=== PATIENT | female | born 1955 | race Caucasian/White ===

== ENCOUNTER 2019-12-31 12:44 | Outpatient (REF) | payer MEDICARE, MEDICAID, SELFPAY ==
--- NOTE | 2019-12-31 | MM_ITS ---
EXAMINATION: MM SCREENING DIGITAL BREAST TOMOSYNTHESIS, BILATERAL CLINICAL INFORMATION: Screening. Asymptomatic. The lifetime risk of breast cancer based on the Tyrer-Cuzick Model is 5%. COMPARISON: Mammography: 12/25/2018, 12/01/2017, 11/03/2016; targeted right breast ultrasound 11/10/2016 TECHNIQUE: Digital breast tomosynthesis is performed in both the craniocaudal and mediolateral oblique views along with computer-aided detection (CAD). Synthesized 2D images are generated from the tomosynthesis. FINDINGS: There are scattered areas of fibroglandular density (ACR BI-RADS breast composition Category b). Parenchymal pattern borders on heterogeneously dense in the upper outer quadrants. There is fibrocystic parenchymal pattern with small bilateral smooth waxing and waning nodularity. No interval significant mass or architectural abnormality. There are scattered punctate isolated and small groups of round calcifications. No significant calcifications. The skin contours are smooth. IMPRESSION: No significant changes from prior studies. ASSESSMENT: BI-RADS 2: Benign RECOMMENDATION: Routine annual mammography screening. This patient's information was entered into a reminder system with a target due date for their next mammogram.
== END 2019-12-31 12:45 | disposition home or self-care (01) ==
LOC: HO.MAMMO 12:44
PROVIDERS: PCP Family Medicine; Visit Provider Family Medicine
DX: Z12.31 Encounter for screening mammogram for malignant neoplasm of breast (principal)
CPT/HCPCS: 77063; 77067; 78014

== ENCOUNTER 2020-11-20 13:09 | Outpatient (REF) | payer MEDICARE, MEDICAID, SELFPAY ==
--- NOTE | ~2020-11-20 | US_ITS ---
EXAMINATION: ULTRASOUND EXTREMITY NONVASCULAR CLINICAL INFORMATION: Lung on left forearm COMPARISON: None TECHNIQUE: Grayscale and color imaging of the soft tissues of the left forearm using a linear transducer FINDINGS: There are 2 solid hypoechoic lesions just deep to the skin in the volar surface of the left forearm measuring 1.9 x 1.5 x 2 cm distally and 0.5 x 1.3 x 0.3 cm proximally. Both lesions are suggestive of lipomas. US/US extremity nonvascular martins IMPRESSION: 2 solid hypoechoic lesions in the left forearm suggestive of lipomas.
== END 2020-11-20 13:10 | disposition home or self-care (01) ==
LOC: HO.US 13:09
PROVIDERS: Visit Provider Family Medicine
DX: R22.32 Localized swelling, mass and lump, left upper limb (principal)
CPT/HCPCS: 76882

== ENCOUNTER 2021-02-12 13:19 | Outpatient (REF) | payer MEDICARE, MEDICAID, SELFPAY ==
--- NOTE | ~2021-02-12 | MM_ITS ---
EXAMINATION: MM SCREENING DIGITAL BREAST TOMOSYNTHESIS, BILATERAL CLINICAL INFORMATION: Screening. Asymptomatic. The lifetime risk of breast cancer based on the Tyrer-Cuzick Model is 8%. COMPARISON: Mammography: 12/31/2019, 12/25/2018, 12/01/2017 TECHNIQUE: Digital breast tomosynthesis is performed in both the craniocaudal and mediolateral oblique views along with computer-aided detection (CAD). Synthesized 2D images are generated from the tomosynthesis. Additional left CC view is provided. FINDINGS: There are scattered areas of fibroglandular density (ACR BI-RADS breast composition Category b). Parenchymal pattern is similar to prior exams. There is no developing density or interval significant mass or architectural abnormality. Scattered punctate isolated and small groups of round calcifications are again noted as well as dermal in coarse calcifications as before. The axilla and skin contours are unremarkable. MM/MM tomosynthesis screening BI IMPRESSION: No mammographic evidence of malignancy. ASSESSMENT: BI-RADS 2: Benign RECOMMENDATION: Routine annual mammography screening. This patient's information was entered into a reminder system with a target due date for their next mammogram.
== END 2021-02-12 13:20 | disposition home or self-care (01) ==
LOC: HO.MAMMO 13:19
PROVIDERS: PCP Family Medicine; Visit Provider Family Medicine
DX: Z12.31 Encounter for screening mammogram for malignant neoplasm of breast (principal)
CPT/HCPCS: 77063; 77067

== ENCOUNTER 2021-03-31 09:16 | Outpatient (REF) | payer MEDICARE, MEDICAID, SELFPAY ==
--- NOTE | ~2021-03-31 | MM_ITS ---
EXAMINATION: BONE DENSITOMETRY CLINICAL INDICATION: Menopausal. COMPARISON: This is the patient's baseline examination. TECHNIQUE: Using a POPRAGEOUS DXA System (software version: 13.1) manufactured by [employer], dual-energy x-ray absorptiometry was performed of the lumbar spine and left hip. The images are of good technical quality. Summary results are attached. FINDINGS: AP SPINE L1-L2 (excluding L3 and L4): The data of L1-L4 has been changed to exclude the L3 and L4 vertebral bodies, because degenerative changes at these levels may cause overestimation of lumbar spine density. BMD 1.032 g/cm2, Z-score 0.3, T-score -1.1, osteopenia. LEFT FEMUR, NECK: BMD 0.561 g/cm2, Z-score -2.1, T-score -3.4, osteoporosis. LEFT FEMUR, TOTAL: BMD 0.622 g/cm2, Z-score -2.0, T-score -3.1, osteoporosis. IDENTIFIED RISK FACTORS: Renal, menopause. HISTORY OF FRACTURE: None listed. MEDICATIONS: Calcium supplements or multivitamin, vitamin D. MM/XR DEXA axial skeleton IMPRESSION: 1. DIAGNOSIS: Osteoporosis based on the lowest T-score value of -3.4 in the femoral neck applying World Health Organization criteria. 2. 10-YEAR FRACTURE RISK PREDICTION, FRAX: According to the guidelines, FRAX calculation should only be performed on patients in the osteopenia bone density category. 3. Treatment Recommendations: NOF guidelines recommend consideration for treatment in postmenopausal women and men age 50 and older presenting with the following: -A hip or vertebral (clinical or morphometric) fracture. -T-score less than or equal to -2.5 at the femoral neck or spine after appropriate evaluation to exclude secondary causes. -Low bone mass at the hip or spine and a 10-year fracture probability by FRAX of greater than or equal to 3% for hip fracture or greater than or equal to 20% for major osteoporotic fracture based on the [place] adapted WHO algorithm. 4. Other Recommendations: All treatment decisions require clinical judgment and consideration of individual patient factors, including patient preferences, comorbidities, previous drug use, risk factors not captured in the FRAX model (e.g. frailty, falls, vitamin D deficiency, increased bone turnover, interval significant decline in bone density) and possible under or overestimation of fracture risk by FRAX. Additional medical evaluation for secondary cause of low bone mineral density may be appropriate. FUTURE SCAN RECOMMENDATION: People with diagnosed cases of osteoporosis or at high risk for fracture should have regular bone mineral density tests. For patients eligible for Medicare, routine testing is allowed once every 2 years. The testing frequency can be increased to one year for patients who have rapidly progressing disease, those who are receiving or discontinuing medical therapy to restore bone mass, or have additional risk factors.
== END 2021-03-31 09:17 | disposition home or self-care (01) ==
LOC: HO.MAMMO 09:16
PROVIDERS: PCP Family Medicine; Visit Provider Family Medicine
DX: Z13.820 Encounter for screening for osteoporosis (principal); M81.0 Age-related osteoporosis without current pathological fracture; Z78.0 Asymptomatic menopausal state; Z79.899 Other long term (current) drug therapy
CPT/HCPCS: 77080

== ENCOUNTER 2021-04-15 08:35 | Outpatient (REF) | payer MEDICARE, MEDICAID, SELFPAY ==
--- NOTE | ~2021-04-15 | XR_ITS ---
EXAMINATION: XR FOREARM, LEFT CLINICAL INFORMATION: Soft tissue disorder COMPARISON: None TECHNIQUE: AP and lateral views of the left forearm were obtained. FINDINGS: No visible acute fracture or malalignment of the radius and ulna. Alignment at the elbow and wrist joint appears maintained. No abnormal soft tissue calcification is seen. XR/XR forearm LT 2V IMPRESSION: No evidence of acute osseous abnormality.
== END 2021-04-15 08:36 | disposition home or self-care (01) ==
LOC: HO.HOSX 08:35
PROVIDERS: Visit Provider Orthopaedic Surgery
DX: M79.89 Other specified soft tissue disorders (principal)
CPT/HCPCS: 73090; 99202

== ENCOUNTER 2021-05-14 07:28 | Day surgery (SDC) | payer MEDICARE, MEDICAID, SELFPAY ==
[2021-05-13 07:50] VITALS: BMI 25.4
--- NOTE | 2021-05-13 09:30 | HO.ANESPROP2 ---
Documented by User: Roselia Austin NP 05/13/21 09:35 HPI - Anesthesia Eval Consult details Narrative: 65yo F for Left Volar Excision Mass PMFSH Active Problems Active Problems: All Active Problems (Updated 05/13/21 @ 07:50 by Anjana Yeung RN) Mass of soft tissue of left upper extremity (Acute) Past Medical History Medical History Chronic kidney disease HLD (hyperlipidemia) HTN (hypertension) Schizophrenia Social History Social History Patient Tobacco Use Status: Never used Tobacco Current 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 status: disabled Current occupation: [employer] Allergies Allergy/AdvReac Type Severity Reaction Status Date / Time No Known Allergies Allergy Verified 04/15/21 13:46 Home Medications Medication Instructions Recorded Confirmed Last Taken Type amlodipine 2.5 mg tablet 2.5 mg PO DAILY 04/15/21 05/14/21 History cyanocobalamin (vitamin B-12) 1,000 mcg PO DAILY 04/15/21 Unknown History 1,000 mcg capsule fenofibrate 50 mg capsule 50 mg PO DAILY 04/15/21 Unknown History perphenazine 2 mg tablet 2 mg PO BID 04/15/21 Unknown History Exam Exam Date and Time: May 13, 2021 0930 Height,Weight and Vital Signs: Height 5 ft 5 in Weight 69.4 kg Assessment and Plan Assessment Anesthesia Assessment: Chart Reviewed Documented by User: Chapo Wang MD 05/14/21 12:36 HPI - Anesthesia Eval Consult details Narrative: 65yo F for Left Volar Excision Mass Hx of schizophrenia, controlled PMFSH Past Medical History Medical History Chronic kidney disease HLD (hyperlipidemia) HTN (hypertension) Schizophrenia Family History Family history of problems with anesthesia: No Surgical History History of Problems with Anesthesia: No Social History Social History Patient Tobacco Use Status: Never used Tobacco Current 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 status: 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 Meds Allergies Allergy/AdvReac Type Severity Reaction Status Date / Time No Known Allergies Allergy Verified 04/15/21 13:46 Home Medications Medication Instructions Recorded Confirmed Last Taken Type amlodipine 2.5 mg tablet 2.5 mg PO DAILY 04/15/21 05/14/21 History cyanocobalamin (vitamin B-12) 1,000 mcg PO DAILY 04/15/21 Unknown History 1,000 mcg capsule fenofibrate 50 mg capsule 50 mg PO DAILY 04/15/21 Unknown History perphenazine 2 mg tablet 2 mg PO BID 04/15/21 Unknown History Exam Airway Mallampati Class: II TM Dist: >3cm Neck ROM: Full Loose/Missing/Broken Teeth: Yes Assessment and Plan Final Anesthetic Review Family History of Problems with Anesthesia: No History of Problems with Anesthesia: No NPO: Yes ASA Class: II Final Preanesthetic Review: No Changes in Pt Med Stat, Meds/Allgs Chart Reviewed, Consent Obtained/Reviewed and Anes Risks/Benef Reviewed Patient Risk: Low Procedure Risk: Low Anesthetic Plan Anesthetic Plan: MAC: Disposition: Standard PACU
[2021-05-14 08:11] VITALS: BP 144/66; PULSE 88; RESP 16; TEMP 36.8; O2SAT 99
[2021-05-14] MEDS: Lactated Ringers 1,000 ML 100 ML IVCONT (08:18)
[2021-05-14 08:45] LABS: Anion Gap 12 (12-20); Blood Urea Nitrogen 23 mg/dL (9-16); Calcium 9.8 mg/dL (8.4-10.2); Carbon Dioxide 26 mmol/L (22-29); Chloride 110 mmol/L (96-108); Creatinine Clr Calc Pharmacy 57.1; Estimated Glomerular Filt Rate 58; Glucose Fasting 106 mg/dL (60-99); Potassium 4.1 mmol/L (3.3-5.1); Sodium 144 mmol/L (135-145)
--- NOTE | 2021-05-14 09:36 | MHC.SHP ---
Pre-Procedural Eval Section A Date of Service: 05/14/21 The patient is an INPATIENT: No Changes since office visit: No Cold of Flu in the past 2 weeks, No New Medical Problems, No Changes in Medication and No Patient answered all questions The History & Physical has been completed within 30 days and I have reviewed it.: Yes Section B Chief Complaint: soft tissue disorder Allergies: Allergies Allergy/AdvReac Type Severity Reaction Status Date / Time No Known Allergies Allergy Verified 04/15/21 13:46 Plan I have reviewed the history and physical and performed a pertinent physical examination on my patient. No changes have occurred unless specified.
--- NOTE | 2021-05-14 09:36 | W.PM.OPN ---
Operative Note Operative Note Date of Service: 05/14/21 Narrative: Operative Note Narrative: Preop diagnosis: 1. Left volar forearm mass Postop diagnosis: Same Procedure: 1. Left volar forearm mass excisional biopsy Surgeon: Jordyn Carlisle MD Anesthesia: local plus MAC Findings: 2 cm diameter yellow lipomatous mass Implants: none Tourniquet time: 0 minutes EBL: 5.0 ml Specimen: left volar forearm mass for histopathology Drains: None Complications: None Disposition: Brought to the recovery room in stable condition Plan: Follow-up in 10-14 days for wound check, suture removal and to check pathology Indications: The patient is a 65 year old woman with a left volar forearm mass . The risks and benefits of operative treatment, including but not limited to risk of damage to blood vessels, nerves, tendons, infection, recurrence, persistent pain or numbness, incomplete resolution of preoperative symptoms, or need for further surgery were discussed with the patient and they wished to proceed with surgery. Procedure: Once consent was obtained patient was brought back to the operating suite and placed in the operating table in a supine position. . Perioperative antibiotics and anesthesia was administered by the anesthesia team. I Infiltrated about the mass with a combination of 1% lidocaine and epinephrine. A tourniquet was applied to the proximal aspect of the left upper extremity and the limb was prepped and draped in a standard surgical fashion. The tourniquet was not inflated. I made a a 2.5 cm longitudinal incision directly over the mass. I then carefully dissected down into the subcutaneous layer and to the soft tissue mass. I dissected about a 2 cm diameter yellow lipomatous mass. The mass was removed from the patient and placed on the back table to be sent for histopathology. No further masses were appreciated. The wound was copiously irrigated with normal saline. The skin edges were reapproximated with 5-0 nylon suture. A sterile dressing was applied. The patient appears to have tolerated the procedure well and with no complications. All digits were well vascularized conclusion of the case.
[2021-05-14 10:13] VITALS: BP 109/59; PULSE 89; RESP 16; TEMP 36.3; O2SAT 96
[2021-05-14 10:33] VITALS: BP 122/61; PULSE 79; RESP 16; TEMP 36.3; O2SAT 96
== END 2021-05-14 11:03 | disposition home or self-care (01) ==
PROVIDERS: Nurse Practitioner; PCP Family Medicine; Visit Provider Orthopaedic Surgery
PROC: (CPT 25075; principal; 2021-05-14 09:20)
DX: M79.89 Other specified soft tissue disorders (principal); I12.9 Hypertensive chronic kidney disease with stage 1 through stage 4 chronic kidney disease, or unspecified chronic kidney disease; N18.30 Chronic kidney disease, stage 3 unspecified; F20.9 Schizophrenia, unspecified; Z79.899 Other long term (current) drug therapy
CPT/HCPCS: 25075; 36415; 80048; 88304; J0690

== ENCOUNTER → 2021-05-27 13:19 | Outpatient (BNVA) | payer MEDICARE, MEDICAID, SELFPAY | PROVIDERS: Visit Provider Orthopaedic Surgery | DX: Z48.3 Aftercare following surgery for neoplasm (principal); Z86.018 Personal history of other benign neoplasm | CPT/HCPCS: 99212 ==

== ENCOUNTER 2022-02-15 12:33 | Outpatient (REF) | payer MEDICARE, MEDICAID, SELFPAY ==
--- NOTE | ~2022-02-15 | MM_ITS ---
EXAMINATION: MM SCREENING DIGITAL BREAST TOMOSYNTHESIS, BILATERAL CLINICAL INFORMATION: Screening. Asymptomatic. The lifetime risk of breast cancer based on the Tyrer-Cuzick Model is 9%. COMPARISON: Mammography: 02/12/2021, 12/31/2019, 12/25/2018 TECHNIQUE: Digital breast tomosynthesis is performed in both the craniocaudal and mediolateral oblique views along with computer-aided detection (CAD). Synthesized 2D images are generated from the tomosynthesis. FINDINGS: There are scattered areas of fibroglandular density (ACR BI-RADS breast composition Category b). Scattered bilateral minor parenchymal asymmetries are similar to prior exams. No developing density, significant mass, or architectural abnormality. No abnormal calcifications. The axilla and skin contours are unremarkable. No significant changes. MM/MM tomosynthesis screening BI IMPRESSION: No mammographic evidence of malignancy. ASSESSMENT: BI-RADS 2: Benign RECOMMENDATION: Routine annual mammography screening. This patient's information was entered into a reminder system with a target due date for their next mammogram.
== END 2022-02-15 12:34 | disposition home or self-care (01) ==
LOC: HO.MAMMO 12:33
PROVIDERS: PCP Family Medicine; Visit Provider Family Medicine
DX: Z12.31 Encounter for screening mammogram for malignant neoplasm of breast (principal)
CPT/HCPCS: 77063; 77067

== ENCOUNTER 2022-05-17 13:09 | Emergency (ER) | payer MEDICARE, MEDICAID, SELFPAY ==
[2022-05-17 13:43] VITALS: BP 170/96; PULSE 111; RESP 18; TEMP 36.6; O2SAT 96; BMI 23.0
--- NOTE | 2022-05-17 13:46 | ED_ITS ---
HPI - General Adult General Chief complaint: General Medical <TIM Cervantes - Last Filed: 05/17/22 13:50> Stated complaint: Not sleeping/Losing weight <TIM Cervantes - Last Filed: 05/17/22 13:50> Time Seen by Provider: 05/17/22 22:52 <TIM Cervantes - Last Filed: 05/17/22 13:50> Source: patient <Rock Jackson MD - Last Filed: 05/17/22 23:05> Mode of arrival: ambulatory <Rock Jackson MD - Last Filed: 05/17/22 23:05> Limitations: no limitations <Rock Jackson MD - Last Filed: 05/17/22 23:05> History of Present Illness HPI narrative: Patient with his history of schizophrenia, anxiety, HTN is unable to sleep for last few nights sleep for 3 -4 hours without reaching to deep sleep waking up frequently denies any hallucination or delusions patient used to be on Zyprexa before but not now now today she take perphenazine <Rock Jackson MD - Last Filed: 05/17/22 23:05> Related Data Home medications: Home Medications Medication Instructions Recorded Confirmed amlodipine 2.5 mg tablet 2.5 mg PO DAILY 04/15/21 cyanocobalamin (vitamin B-12) 1,000 mcg PO DAILY 04/15/21 1,000 mcg capsule fenofibrate 50 mg capsule 50 mg PO DAILY 04/15/21 perphenazine 2 mg tablet 2 mg PO BID 04/15/21 Previous Rx's Medication Instructions Recorded hydrocodone 5 mg-acetaminophen 325 1 tab PO Q4-6H PRN pain #3 tabs 05/14/21 mg tablet lorazepam 1 mg tablet (Ativan) 1 mg PO BEDTIME PRN sleep #14 tabs 05/17/22 <TIM Cervantes - Last Filed: 05/17/22 13:50> Allergies/adverse reactions: Allergies Allergy/AdvReac Type Severity Reaction Status Date / Time No Known Allergies Allergy Verified 05/17/22 13:42 <TIM Cervantes - Last Filed: 05/17/22 13:50> Review of Systems Review of Systems: Yes all other systems are reviewed and are negative <Rock Jackson MD - Last Filed: 05/17/22 23:05> [facility] Past Medical History Medical History: Medical History (Updated 05/17/22 @ 23:03 by Rock Jackson MD) Anxiety HLD (hyperlipidemia) HTN (hypertension) Schizophrenia <TIM Cervantes - Last Filed: 05/17/22 13:50> Social History Social History: Social History Patient Tobacco Use Status: Never used Tobacco Advance Directives: No Advance Directives Information Provided: No Current 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 status: 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 <TIM Cervantes - Last Filed: 05/17/22 13:50> Physical Exam ED Vital Signs: Vital Signs - 24 hr 05/17/22 13:43 05/17/22 20:07 Temperature 97.9 F 98 F Pulse Rate 111 H 101 H Respiratory Rate 18 20 Blood Pressure 170/96 H 173/98 H Pulse Oximetry 96 97 Oxygen Delivery Method Room Air Room Air BMI result Body Mass Index 23.0 <TIM Cervantes - Last Filed: 05/17/22 13:50> Vital Signs - 24 hr 05/17/22 13:43 05/17/22 20:07 Temperature 97.9 F 98 F Pulse Rate 111 H 101 H Respiratory Rate 18 20 Blood Pressure 170/96 H 173/98 H Pulse Oximetry 96 97 Oxygen Delivery Method Room Air Room Air BMI result Body Mass Index 23.0 <Rock Jackson MD - Last Filed: 05/17/22 23:05> Appearance: Alert. Oriented X3. No acute distress. Anxious Eyes: PERRLA, No Nystagmus ENT: Pharynx normal. Oral Mucosa moist Neck: Normal inspection. Neck supple. CVS: Normal heart rate and rhythm. Pulses normal. Respiratory: No respiratory distress. Equal air entry bilateral, no wheezing/rales/rhonchi Abdomen: Soft and nontender. Bowel sounds are present, Skin: Skin warm and dry. Normal skin color. Normal skin turgor. Extremities: No lower extremity edema. No calf tenderness Neuro: Oriented X 3. No motor deficit. <Rock Jackson MD - Last Filed: 05/17/22 23:05> Course Course Course Narrative: RME - 66 yo female with history of schizophrenia, HTN, HLD, CKD who presents to the ER for evaluation of difficulty sleeping and weight loss for the last week. She states she has been getting up frequently and having trouble staying asleep. Getting approximately 5 hours sleep per night. Also reports 5lb weight loss in last 4 days. Eating and drinking normally. Tachycardic and hypertensive in triage. ?anxiety. will check basic labs <TIM Cervantes - Last Filed: 05/17/22 13:50> Medical Decision Making Medical Decision Making MDM Narrative: Patient has schizophrenia, came with increased anxiety and poor sleep discharge patient home on Ativan labs are stable <Rock Jackson MD - Last Filed: 05/17/22 23:05> Lab Data [facility] Lab Attestation statement: I reviewed the patient's lab results. <Rock Jackson MD - Last Filed: 05/17/22 23:05> Result Diagrams: 05/17/22 15:00 05/17/22 15:00 <TIM Cervantes - Last Filed: 05/17/22 13:50> Labs: Lab Results 05/17/22 05/17/22 Range/Units 15:00 15:00 WBC 9.4 (4.8-10.8) X10*3/uL RBC 4.89 (4.20-5.50) X10*6/uL Hgb 14.1 (12.0-16.0) g/dl Hct 44.2 (37.0-47.0) % MCV 90.4 (80.0-98.0) fL MCH 28.8 (27.0-33.0) pg MCHC 31.9 (31.0-35.0) g/dl RDW 12.8 (11.0-16.0) % Plt Count 260 (160-400) X10*3/uL MPV 12.3 (9.4-12.3) fL Immature Gran % (Auto) 0.3 (0.0-0.4) % Neut % (Auto) 72.3 (45-73) % Lymph % (Auto) 16.6 L (20-40) % [place] % (Auto) 9.0 (2-11) % Eos % (Auto) 1.3 (0-4) % Baso % (Auto) 0.5 (0-2) % Lymph # (Auto) 1.6 (1.2-4.9) X10*3/uL [place] # (Auto) 0.9 (0.1-1.2) X10*3/uL Eos # (Auto) 0.1 (0.0-0.4) X10*3/uL Baso # (Auto) 0.1 (0.0-0.2) X10*3/uL Abs Immat Gran (auto) 0.03 (0.00-0.03) X10*3/uL Absolute Neuts (auto) 6.8 (2.0-8.3) x10*3/uL Absolute Nucleated RBC 0.000 (0.0-0.012) X10*3/uL Nucleated RBC % (auto) 0.0 (0.0-0.2) /100WBC Sodium 141 (135-145) mmol/L Potassium 4.1 (3.3-5.1) mmol/L Chloride 107 (96-108) mmol/L Carbon Dioxide 22 (22-29) mmol/L Anion Gap 16 (12-20) BUN 13 (9-16) mg/dL Creatinine 0.88 (0.5-1.4) mg/dL Estim Creat Clear Calc 61.1 Estimated GFR > 60 Random Glucose 107 (60-115) mg/dL Calcium 10.3 H (8.4-10.2) mg/dL Magnesium 2.2 (1.6-2.6) mg/dL Total Bilirubin 0.7 (0.0-1.0) mg/dL Direct Bilirubin 0.2 (0.0-0.5) mg/dL AST 26 (5-31) U/L ALT 26 (0-31) U/L Alkaline Phosphatase 43 (39-117) U/L Total Protein 7.6 (6.5-8.0) g/dL Albumin 4.6 (3.5-5.0) g/dL <TIM Cervantes - Last Filed: 05/17/22 13:50> Lab Results 05/17/22 05/17/22 Range/Units 15:00 15:00 WBC 9.4 (4.8-10.8) X10*3/uL RBC 4.89 (4.20-5.50) X10*6/uL Hgb 14.1 (12.0-16.0) g/dl Hct 44.2 (37.0-47.0) % MCV 90.4 (80.0-98.0) fL MCH 28.8 (27.0-33.0) pg MCHC 31.9 (31.0-35.0) g/dl RDW 12.8 (11.0-16.0) % Plt Count 260 (160-400) X10*3/uL MPV 12.3 (9.4-12.3) fL Immature Gran % (Auto) 0.3 (0.0-0.4) % Neut % (Auto) 72.3 (45-73) % Lymph % (Auto) 16.6 L (20-40) % [place] % (Auto) 9.0 (2-11) % Eos % (Auto) 1.3 (0-4) % Baso % (Auto) 0.5 (0-2) % Lymph # (Auto) 1.6 (1.2-4.9) X10*3/uL [place] # (Auto) 0.9 (0.1-1.2) X10*3/uL Eos # (Auto) 0.1 (0.0-0.4) X10*3/uL Baso # (Auto) 0.1 (0.0-0.2) X10*3/uL Abs Immat Gran (auto) 0.03 (0.00-0.03) X10*3/uL Absolute Neuts (auto) 6.8 (2.0-8.3) x10*3/uL Absolute Nucleated RBC 0.000 (0.0-0.012) X10*3/uL Nucleated RBC % (auto) 0.0 (0.0-0.2) /100WBC Sodium 141 (135-145) mmol/L Potassium 4.1 (3.3-5.1) mmol/L Chloride 107 (96-108) mmol/L Carbon Dioxide 22 (22-29) mmol/L Anion Gap 16 (12-20) BUN 13 (9-16) mg/dL Creatinine 0.88 (0.5-1.4) mg/dL Estim Creat Clear Calc 61.1 Estimated GFR > 60 Random Glucose 107 (60-115) mg/dL Calcium 10.3 H (8.4-10.2) mg/dL Magnesium 2.2 (1.6-2.6) mg/dL Total Bilirubin 0.7 (0.0-1.0) mg/dL Direct Bilirubin 0.2 (0.0-0.5) mg/dL AST 26 (5-31) U/L ALT 26 (0-31) U/L Alkaline Phosphatase 43 (39-117) U/L Total Protein 7.6 (6.5-8.0) g/dL Albumin 4.6 (3.5-5.0) g/dL <Rock Jackson MD - Last Filed: 05/17/22 23:05> Discharge Plan Discharge Clinical Impression: Anxiety <TIM Cervantes - Last Filed: 05/17/22 13:50> Patient Disposition: Home, Self-Care <TIM Cervantes - Last Filed: 05/17/22 13:50> Instructions: Anxiety (ED) <TIM Cervantes - Last Filed: 05/17/22 13:50> Additional Instructions: Rest at home Take anxiety medication every night as needed to sleep Follow-up with psychiatrist <TIM Cervantes - Last Filed: 05/17/22 13:50> Prescriptions: New lorazepam [Ativan] 1 mg tablet 1 mg PO BEDTIME PRN (Reason: sleep) Qty: 14 0RF No Action hydrocodone-acetaminophen 5-325 mg tablet 1 tab PO Q4-6H PRN (Reason: pain) Qty: 3 0RF perphenazine 2 mg tablet 2 mg PO BID cyanocobalamin (vitamin B-12) 1,000 mcg capsule 1,000 mcg PO DAILY fenofibrate 50 mg capsule 50 mg PO DAILY amlodipine 2.5 mg tablet 2.5 mg PO DAILY <TIM Cervantes - Last Filed: 05/17/22 13:50>
--- NOTE | 2022-05-17 15:02 | MHC.EDTECH ---
Labs collected and sent
[2022-05-17 15:23] LABS: MANUAL DIFF FLAG NO
[2022-05-17 15:30] LABS: Basophils Absolute Auto 0.1 X10*3/uL (0.0-0.2); Basophils Percent Auto 0.5 % (0-2); Eosinophils Absolute Auto 0.1 X10*3/uL (0.0-0.4); Eosinophils Percent Auto 1.3 % (0-4); Hematocrit 44.2 % (37.0-47.0); Hemoglobin 14.1 g/dl (12.0-16.0); Imm Gran Abs Auto 0.03 X10*3/uL (0.00-0.03); Imm Gran Pct Auto 0.3 % (0.0-0.4); Lymphocytes Absolute Auto 1.6 X10*3/uL (1.2-4.9); Lymphocytes Percent Auto 16.6 % (20-40); Mean Corpuscular HGB Conc 31.9 g/dl (31.0-35.0); Mean Corpuscular Hemoglobin 28.8 pg (27.0-33.0); Mean Corpuscular Volume 90.4 fL (80.0-98.0); Mean Platelet Volume 12.3 fL (9.4-12.3); Monocytes Absolute Auto 0.9 X10*3/uL (0.1-1.2); Neutrophils Absolute Auto 6.8 x10*3/uL (2.0-8.3); Neutrophils Percent Auto 72.3 % (45-73); Platelet Count 260 X10*3/uL (160-400); Red Blood Count 4.89 X10*6/uL (4.20-5.50); Red Cell Distribution Width 12.8 % (11.0-16.0); White Blood Count 9.4 X10*3/uL (4.8-10.8)
[2022-05-17 15:39] LABS: Alanine Aminotransferase 26 U/L (0-31); Albumin Level 4.6 g/dL (3.5-5.0); Alkaline Phosphatase 43 U/L (39-117); Anion Gap 16 (12-20); Aspartate Amino Transferase 26 U/L (5-31); Bilirubin Direct 0.2 mg/dL (0.0-0.5); Bilirubin Total 0.7 mg/dL (0.0-1.0); Blood Urea Nitrogen 13 mg/dL (9-16); Calcium 10.3 mg/dL (8.4-10.2); Carbon Dioxide 22 mmol/L (22-29); Chloride 107 mmol/L (96-108); Creatinine Clr Calc Pharmacy 61.1; Estimated Glomerular Filt Rate > 60; Glucose Random 107 mg/dL (60-115); Magnesium 2.2 mg/dL (1.6-2.6); Potassium 4.1 mmol/L (3.3-5.1); Sodium 141 mmol/L (135-145); Total Protein 7.6 g/dL (6.5-8.0)
[2022-05-17 20:07] VITALS: BP 173/98; PULSE 101; RESP 20; TEMP 36.6; O2SAT 97
[2022-05-17] MEDS: LORazepam 1 MG TABLET PO (23:01)
== END 2022-05-17 23:04 | disposition home or self-care (01) ==
PROVIDERS: Physician Assistant; Emergency Provider Internal Medicine; PCP Family Medicine
DX: F41.1 Generalized anxiety disorder (principal); I10 Essential (primary) hypertension; Z79.899 Other long term (current) drug therapy
CPT/HCPCS: 36415; 80048; 80076; 83735; 85025; 99282; 99283

== ENCOUNTER 2022-05-27 09:59 | Emergency (ER) | payer MEDICARE, MEDICAID, SELFPAY ==
--- NOTE | ~2022-05-27 | XR_ITS ---
EXAMINATION: XR CHEST CLINICAL INFORMATION: Cough. COMPARISON: None TECHNIQUE: 2 views of the chest were obtained. FINDINGS: No significant abnormality is noted involving the heart, lungs, mediastinum, bony thorax or soft tissues. XR/XR chest 2V IMPRESSION: No acute cardiopulmonary process.
[2022-05-27 10:13] VITALS: BP 143/86; PULSE 108; O2SAT 100
[2022-05-27 10:23] VITALS: BP 157/86; PULSE 100; RESP 16; TEMP 36.6; O2SAT 98; BMI 25.2
--- NOTE | 2022-05-27 10:29 | ED.GENADULT ---
HPI - General Adult General Chief complaint: General Medical Stated complaint: COUGH Time Seen by Provider: 05/27/22 11:50 Source: patient, RN notes reviewed and old records reviewed Mode of arrival: ambulatory Limitations: no limitations History of Present Illness HPI narrative: This is a 66-year-old female who presents for evaluation of ?gagging and choking. ? Patient reports that when she was lying down last night when trying to bed she had an episode of ?choking. ? She reports that she was not eating at a time and believes she may have accidentally ?choked on my saliva She denies any sore throat, throat pain or swelling, neck pain or swelling, congestion, cough. Denies any viral symptoms including fever, headache, runny nose. She is able to swallow and manage her secretions. She is able to eat this morning without difficulty Related Data Home Medications Medication Instructions Recorded Confirmed amlodipine 2.5 mg tablet 2.5 mg PO DAILY 04/15/21 cyanocobalamin (vitamin B-12) 1,000 mcg PO DAILY 04/15/21 1,000 mcg capsule fenofibrate 50 mg capsule 50 mg PO DAILY 04/15/21 perphenazine 2 mg tablet 2 mg PO BID 04/15/21 Previous Rx's Medication Instructions Recorded hydrocodone 5 mg-acetaminophen 325 1 tab PO Q4-6H PRN pain #3 tabs 05/14/21 mg tablet lorazepam 1 mg tablet (Ativan) 1 mg PO BEDTIME PRN sleep #14 tabs 05/17/22 Allergies Allergy/AdvReac Type Severity Reaction Status Date / Time No Known Allergies Allergy Verified 05/17/22 13:42 Review of Systems Constitutional: Constitutional: Reports as per HPI, Denies chills and Denies fatigue ENT: Denies hoarseness, Denies neck mass, Denies neck pain, Denies sore throat and Denies tongue swelling Cardiovascular: Cardiovascular: Denies chest pain and Denies dyspnea Respiratory: Respiratory: Denies cough and Denies dyspnea Gastrointestinal: Gastrointestinal: Denies abdominal pain, Denies constipation and Denies vomiting Genitourinary: Genitourinary: Denies dysuria Musculoskeletal: Musculoskeletal: Denies neck pain Endocrine: Endocrine: Denies fatigue Allergic/Immunologic: Allergic/Immunologic: Denies tongue swelling [facility] Past Medical History Medical History (Updated 05/27/22 @ 11:57 by Matty Shelton) Anxiety HLD (hyperlipidemia) HTN (hypertension) Schizophrenia Social History Social History Patient Tobacco Use Status: Never used Tobacco Advance Directives: No Current 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 status: 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 Physical Exam ED Vital Signs: Vital Signs - 24 hr 05/27/22 10:23 Temperature 97.8 F Pulse Rate 100 Respiratory Rate 16 Blood Pressure 157/86 H Pulse Oximetry 98 Oxygen Delivery Method Room Air BMI result Body Mass Index 25.2 Const General: healthy appearing, comfortable, no acute distress, alert and awake Nutritional Appearance: well nourished Orientation/consciousness: patient oriented x3 HENMT Other: Patient has no oral contrast or retropharyngeal edema, no erythema, no exudates. Patient's cranial nerves are intact with good and equal soft palate rise bilaterally. There is no Eulogio's angina. The patient is managing his secretions well. No uvular edema. Patient has no soft tissue swelling to the neck or face. No goiter or palpable mass the thyroid. Eyes Eyelids: Yes eyelids normal Conjunctivae: conjunctivae normal Sclerae: sclerae normal Corneas: corneas normal Pupils: Equal, round and reactive pupils present EOM: EOMs intact bilaterally Resp Effort & Inspection: normal respiratory effort, able to speak in complete sentences, no audible wheezes and not labored Auscultation: clear to auscultation bilaterally Skin General skin exam: no rashes or lesions noted and elasticity normal Lesions: no lesions Rashes: no rashes Neuro General: patient oriented x3 Cranial nerves: Yes Equal, round and reactive pupils present Extrem General: Yes full ROM Course Course Course Narrative: RME- 66-year-old female with past medical history significant for hypertension, anxiety presents for evaluation of ?choking and gagging. ? Patient reports that last night when she is trying to sleep when lying down she ?started choking. ? She reports that happened again this morning while she was eating. She reports some associated coughing since then. Denies any neck pain, sore throat, neck swelling, shortness of breath. Denies any other viral or upper respiratory symptoms. Patient is quite well appearing in triage Plan to get chest x-ray to evaluate for potential aspiration sequela Medical Decision Making Medical Decision Making MDM Narrative: 66-year-old female presents for evaluation after a truck episode last night. She believes that she choked her saliva. On exam she is resting comfortably vital signs are stable. She is able to manage her secretions without difficulty. Patient reports eating and drinking this morning. Her physical exam is unremarkable. There are no neurologic deficits. The patient has good soft palate rise. No indication for CVA. There is no hoarseness to the patient's voice, while evidence of soft tissue neck swelling. No indication for viral or bacterial infections. Inna imaging time will have low yield from the patient's symptoms will likely resolve on their own. Patient was encouraged not to eat within 2 hours of going to bed. She will be discharged to follow-up with PCP. Differential Diagnosis Difficulty swallowing Choking Aspiration Dysphagia Pharyngitis Viral syndrome Discharge Plan Discharge Clinical Impression: Episode of gagging Patient Disposition: Home, Self-Care Additional Instructions: Your exam in the emergency department was reassuring. There are no signs of bacterial or viral infections or swelling in her neck or throat Follow-up with your primary doctor Return sooner for any new or worsening symptoms Prescriptions: No Action hydrocodone-acetaminophen 5-325 mg tablet 1 tab PO Q4-6H PRN (Reason: pain) Qty: 3 0RF lorazepam [Ativan] 1 mg tablet 1 mg PO BEDTIME PRN (Reason: sleep) Qty: 14 0RF perphenazine 2 mg tablet 2 mg PO BID cyanocobalamin (vitamin B-12) 1,000 mcg capsule 1,000 mcg PO DAILY fenofibrate 50 mg capsule 50 mg PO DAILY amlodipine 2.5 mg tablet 2.5 mg PO DAILY
== END 2022-05-27 11:59 | disposition home or self-care (01) ==
PROVIDERS: Emergency Provider Student in an Organized Health Care Education/Training Program; PCP Family Medicine
DX: R05.9 Cough, unspecified (principal); R09.89 Other specified symptoms and signs involving the circulatory and respiratory systems; Z79.899 Other long term (current) drug therapy
CPT/HCPCS: 71046; 99282; 99283

== ENCOUNTER 2022-06-04 03:47 | Emergency (ER) | payer MEDICARE, MEDICAID, SELFPAY ==
[2022-06-04 04:09] VITALS: BP 145/89; PULSE 97; RESP 16; TEMP 36.2; O2SAT 97
[2022-06-04 07:08] VITALS: BP 154/86; PULSE 89; RESP 18; TEMP 36.8; O2SAT 96
--- NOTE | 2022-06-04 07:23 | ED_ITS ---
HPI - Anxiety General Chief Complaint: Anxiety Stated Complaint: Can't sleep/Anxiety Time Seen by Provider: 06/04/22 06:36 Source: patient Mode of arrival: ambulatory Limitations: no limitations History of Present Illness HPI narrative: 66-year-old female with history of schizophrenia, anxiety presents with difficu lty sleeping. Symptoms started approximately 1 month ago. She has tried melatonin, lorazepam, hydroxyzine without significant improvement. Patient describes her symptoms as moderate to severe in nature. There are no clear relieving or exacerbating features. She denies any suicidal homicidal sarah ations. She denies significant depression. Her anxiety is certainly increasing secondary to or insomnia but there is no clear exacerbating features of her insomnia. Patient does have a psychiatrist which she follows up with. Her next appointment is in June. Patient denies alcohol or drug abuse. Related Data Home Medications Medication Instructions Recorded Confirmed amlodipine 2.5 mg tablet 2.5 mg PO DAILY 04/15/21 cyanocobalamin (vitamin B-12) 1,000 mcg PO DAILY 04/15/21 1,000 mcg capsule fenofibrate 50 mg capsule 50 mg PO DAILY 04/15/21 perphenazine 2 mg tablet 2 mg PO BID 04/15/21 Previous Rx's Medication Instructions Recorded hydrocodone 5 mg-acetaminophen 325 1 tab PO Q4-6H PRN pain #3 tabs 05/14/21 mg tablet lorazepam 1 mg tablet (Ativan) 1 mg PO BEDTIME PRN sleep #14 tabs 05/17/22 trazodone 50 mg tablet 50 mg PO BEDTIME PRN sleep #7 tabs 06/04/22 Allergies Allergy/AdvReac Type Severity Reaction Status Date / Time No Known Allergies Allergy Verified 05/17/22 13:42 Review of Systems Review of Systems: CONSTITUTIONAL: Denies weight loss, fever and chills. HEENT: Denies changes in vision and hearing. RESPIRATORY: Denies SOB and cough. CV: Denies palpitations no CP. GI: Denies abdominal pain, nausea, vomiting and diarrhea. : Denies dysuria and urinary frequency. MSK: Denies myalgia and joint pain. SKIN: Denies rash and pruritus. NEUROLOGICAL: Denies headache and syncope. PSYCHIATRIC: Denies recent changes in mood. Anxiety and depression. All other ROS are negative unless in HPI PMFSH Past Medical History Medical History Anxiety HLD (hyperlipidemia) HTN (hypertension) Schizophrenia Social History Social History Alcohol intake: current Alcohol intake frequency: other Patient Tobacco Use Status: Never used Tobacco Smoked in Last 30 Days: No Use of substances other than those prescribed or required for medical reasons: No Advance Directives: No Advance Directives Information Provided: No Current 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 status: 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 Physical Exam Vital Signs: Vital Signs: Last Vital Signs Temp 98.3 F 06/04/22 07:08 Pulse 89 06/04/22 07:08 Resp 18 06/04/22 07:08 BP 154/86 H 06/04/22 07:08 Pulse Ox 96 06/04/22 07:08 O2 Del Method 06/04/22 07:08 BMI result Body Mass Index 0.8 GEN: Well developed, no acute distress, alert, oriented HEENT: Normocephalic, atraumatic, normal external ears, nose appears normal, no oropharyngeal edema or exudates Eyes: Normal to appearance Neck: Supple, no lymphadenopathy Respiratory: Talks in complete sentences, no respiratory distress, clear to auscultation bilaterally Cardiovascular: Regular rate and rhythm, no murmurs rubs or gallops Abdomen: Soft, nontender, nondistended, no guarding, no rebound Back: No CVA tenderness Extremities: No clubbing cyanosis or edema Neurologic: No focal neurologic deficits, cranial nerves 2-12 intact, strength is 5/5 bilaterally, tremulous Skin: No rash Course Course Course Narrative: 66-year-old female with history of anxiety and schizophrenia presents with difficulty sleeping. Symptoms seemed of exacerbated over the last 4 weeks. Recent attempts to medically manage this have failed. I have offered evaluation by our psychiatric team to assist with medication management. However, at this point she is really requesting a sleep aid. She has had no recent thyroid testing. We will check thyroid 1st prior to discharge. Assuming she is able to be discharged, will start the patient on trazodone 50 mg at night and she may follow-up with her primary care provider or her psychiatrist for further treatment. Reevaluation(s) Reevaluation #1: The workup is complete. There is no evidence of thyroid dysfunction. Discussed lab results. Sleep hygiene, etc.. Time: 08:41 Medical Decision Making Medical Decision Making [facility] Narrative: 66-year-old female with previous psychiatric history presents with insomnia. My evaluation she was tremulous but otherwise had no focal neurologic deficits. She is not suicidal homicidal. She is not requesting an emergent psychiatric evaluation. I agree with this as she has appropriate follow-up as an o utpatient. At being said, she has had no recent thyroid testing. Given her tremulousness which she reports is new over the last 4-6 weeks, would like to make sure she is not hyperthyroid. Should she be hyperthyroid, would consider beta blockade such as propranolol. In the meantime, will prescribe trazodone as needed at night. We talked about the side effect profile of the medication as well Differential Diagnosis Differential Diagnoses: The differential diagnosis associated with the presentation includes (Insomnia, depression, anxiety, thyroid dysfunction, electrolyte abnormality, anemia) Insomnia, anxiety Admission/Observation Consideration of admission/observation: Escalation of care including admission/observation considered Lab Data [facility] Lab Attestation statement: I reviewed the patient's lab results. 06/04/22 07:20 06/04/22 07:20 Labs: Lab Results 06/04/22 06/04/22 Range/Units 07:20 07:20 WBC 7.0 (4.8-10.8) X10*3/uL RBC 4.56 (4.20-5.50) X10*6/uL Hgb 13.4 (12.0-16.0) g/dl Hct 41.0 (37.0-47.0) % MCV 89.9 (80.0-98.0) fL MCH 29.4 (27.0-33.0) pg MCHC 32.7 (31.0-35.0) g/dl RDW 12.8 (11.0-16.0) % Plt Count 257 (160-400) X10*3/uL MPV 12.6 H (9.4-12.3) fL Immature Gran % (Auto) 0.3 (0.0-0.4) % Neut % (Auto) 65.0 (45-73) % Lymph % (Auto) 23.7 (20-40) % Rhea % (Auto) 9.3 (2-11) % Eos % (Auto) 1.3 (0-4) % Baso % (Auto) 0.4 (0-2) % Lymph # (Auto) 1.7 (1.2-4.9) X10*3/uL Rhea # (Auto) 0.7 (0.1-1.2) X10*3/uL Eos # (Auto) 0.1 (0.0-0.4) X10*3/uL Baso # (Auto) 0.0 (0.0-0.2) X10*3/uL Abs Immat Gran (auto) 0.02 (0.00-0.03) X10*3/uL Absolute Neuts (auto) 4.6 (2.0-8.3) x10*3/uL Absolute Nucleated RBC 0.000 (0.0-0.012) X10*3/uL Nucleated RBC % (auto) 0.0 (0.0-0.2) /100WBC Sodium 143 (135-145) mmol/L Potassium 4.1 (3.3-5.1) mmol/L Chloride 110 H (96-108) mmol/L Carbon Dioxide 23 (22-29) mmol/L Anion Gap 14 (12-20) BUN 10 (9-16) mg/dL Creatinine 0.80 (0.5-1.4) mg/dL Estim Creat Clear Calc 2.6 Estimated GFR > 60 Random Glucose 99 (60-115) mg/dL Calcium 9.4 D (8.4-10.2) mg/dL Total Bilirubin 0.6 (0.0-1.0) mg/dL AST 27 (5-31) U/L ALT 23 (0-31) U/L Alkaline Phosphatase 40 (39-117) U/L Total Protein 7.0 (6.5-8.0) g/dL Albumin 4.4 (3.5-5.0) g/dL TSH 0.68 (0.32-4.0) uIU/mL Independent Historian Clinical information obtained from an independent historian. History obtained from or confirmed by: Spouse Prescription Management I considered prescription management with: Other ([facility]) Discharge Plan Discharge Clinical Impression: Acute anxiety, Insomnia Patient Disposition: Home, Self-Care Instructions: Insomnia (ED), Anxiety (ED) Prescriptions: New trazodone 50 mg tablet 50 mg PO BEDTIME PRN (Reason: sleep) Qty: 7 0RF No Action hydrocodone-acetaminophen 5-325 mg tablet 1 tab PO Q4-6H PRN (Reason: pain) Qty: 3 0RF lorazepam [Ativan] 1 mg tablet 1 mg PO BEDTIME PRN (Reason: sleep) Qty: 14 0RF perphenazine 2 mg tablet 2 mg PO BID cyanocobalamin (vitamin B-12) 1,000 mcg capsule 1,000 mcg PO DAILY fenofibrate 50 mg capsule 50 mg PO DAILY amlodipine 2.5 mg tablet 2.5 mg PO DAILY Referrals: Luciana Winters MD [Primary Care Provider] - 3 days
[2022-06-04 07:26] LABS: MANUAL DIFF FLAG NO
[2022-06-04 07:37] LABS: Basophils Percent Auto 0.4 % (0-2); Eosinophils Absolute Auto 0.1 X10*3/uL (0.0-0.4); Eosinophils Percent Auto 1.3 % (0-4); Hemoglobin 13.4 g/dl (12.0-16.0); Imm Gran Abs Auto 0.02 X10*3/uL (0.00-0.03); Imm Gran Pct Auto 0.3 % (0.0-0.4); Lymphocytes Absolute Auto 1.7 X10*3/uL (1.2-4.9); Lymphocytes Percent Auto 23.7 % (20-40); Mean Corpuscular HGB Conc 32.7 g/dl (31.0-35.0); Mean Corpuscular Hemoglobin 29.4 pg (27.0-33.0); Mean Corpuscular Volume 89.9 fL (80.0-98.0); Mean Platelet Volume 12.6 fL (9.4-12.3); Monocytes Absolute Auto 0.7 X10*3/uL (0.1-1.2); Monocytes Percent Auto 9.3 % (2-11); Neutrophils Absolute Auto 4.6 x10*3/uL (2.0-8.3); Platelet Count 257 X10*3/uL (160-400); Red Blood Count 4.56 X10*6/uL (4.20-5.50); Red Cell Distribution Width 12.8 % (11.0-16.0)
[2022-06-04 08:12] LABS: Alanine Aminotransferase 23 U/L (0-31); Albumin Level 4.4 g/dL (3.5-5.0); Alkaline Phosphatase 40 U/L (39-117); Anion Gap 14 (12-20); Aspartate Amino Transferase 27 U/L (5-31); Bilirubin Total 0.6 mg/dL (0.0-1.0); Blood Urea Nitrogen 10 mg/dL (9-16); Calcium 9.4 mg/dL (8.4-10.2); Carbon Dioxide 23 mmol/L (22-29); Chloride 110 mmol/L (96-108); Creatinine Clr Calc Pharmacy 2.6; Estimated Glomerular Filt Rate > 60; Glucose Random 99 mg/dL (60-115); Potassium 4.1 mmol/L (3.3-5.1); Sodium 143 mmol/L (135-145)
[2022-06-04 08:27] LABS: TSH reflex Free T4 0.68 uIU/mL (0.32-4.0)
== END 2022-06-04 08:50 | disposition home or self-care (01) ==
PROVIDERS: Emergency Provider Emergency Medicine; PCP Family Medicine
DX: G47.00 Insomnia, unspecified (principal); F41.9 Anxiety disorder, unspecified; F20.9 Schizophrenia, unspecified
CPT/HCPCS: 36415; 80053; 84443; 85025; 99283; 99284

== ENCOUNTER 2022-06-06 03:20 | Emergency (ER) | payer MEDICARE, MEDICAID, SELFPAY ==
[2022-06-06 03:47] VITALS: BP 150/83; PULSE 102; RESP 18; TEMP 36.6; O2SAT 97; BMI 24.9
--- NOTE | 2022-06-06 03:53 | ED_ITS ---
HPI - Anxiety General Chief Complaint: Anxiety Stated Complaint: anxiety, insomnia Time Seen by Provider: 06/06/22 03:51 Source: patient Mode of arrival: ambulatory Limitations: no limitations History of Present Illness HPI narrative: Patient history of schizophrenia insomnia which is going on for awhile seen her psychiatrist 1 week ago started on perphenazine 2 mg twice daily and trazodone 50 mg along with she is taking hydroxyzine still unable to sleep. Does have auditory hallucination off and on no depression has tried different medication without much relief Related Data Home Medications Medication Instructions Recorded Confirmed amlodipine 2.5 mg tablet 2.5 mg PO DAILY 04/15/21 cyanocobalamin (vitamin B-12) 1,000 mcg PO DAILY 04/15/21 1,000 mcg capsule fenofibrate 50 mg capsule 50 mg PO DAILY 04/15/21 perphenazine 2 mg tablet 2 mg PO BID 04/15/21 Previous Rx's Medication Instructions Recorded hydrocodone 5 mg-acetaminophen 325 1 tab PO Q4-6H PRN pain #3 tabs 05/14/21 mg tablet lorazepam 1 mg tablet (Ativan) 1 mg PO BEDTIME PRN sleep #14 tabs 05/17/22 trazodone 50 mg tablet 50 mg PO BEDTIME PRN sleep #7 tabs 06/04/22 prazosin 1 mg capsule 1 mg PO BEDTIME #20 caps 06/06/22 Allergies Allergy/AdvReac Type Severity Reaction Status Date / Time No Known Allergies Allergy Verified 05/17/22 13:42 Review of Systems Review of Systems: Yes all other systems are reviewed and are negative [facility] Past Medical History Medical History Anxiety HLD (hyperlipidemia) HTN (hypertension) Schizophrenia Social History Social History Alcohol intake: current Alcohol intake frequency: other Patient Tobacco Use Status: Never used Tobacco Advance Directives: No Advance Directives Information Provided: Yes Current 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 status: 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 Physical Exam Vital Signs: Vital Signs: Last Vital Signs Temp 97.8 F 06/06/22 03:47 Pulse 97 06/06/22 04:27 Resp 18 06/06/22 03:47 BP 138/87 06/06/22 04:27 Pulse Ox 97 06/06/22 04:27 O2 Del Method 06/06/22 04:27 BMI result Body Mass Index 24.9 Appearance: Alert. Oriented X3. No acute distress. Very anxious Eyes: PERRLA, No Nystagmus ENT: Pharynx normal. Oral Mucosa moist Neck: Normal inspection. Neck supple. CVS: Normal heart rate and rhythm. Pulses normal. Respiratory: No respiratory distress. Equal air entry bilateral, no wheezing/rales/rhonchi Abdomen: Soft and nontender. Bowel sounds are present, no mass palpable, no CVA tenderness Skin: Skin warm and dry. Normal skin color. Normal skin turgor. Extremities: No lower extremity edema. No calf tenderness Neuro: Oriented X 3. No motor deficit. No sensory deficit.No cerebellar signs , cranial nerves II-XII intact Medications Administered Discontinued Medications Generic Name Dose Route Start Last Admin Trade Name Freq PRN Reason Stop Dose Admin Prazosin HCl 1 mg 06/06/22 04:17 06/06/22 04:28 Prazosin Hcl 1 Mg Capsule PO 06/06/22 04:18 1 mg ONCE ONE Administration Protocol Medical Decision Making Medical Decision Making [facility] Narrative: Patient with schizophrenia insomnia already on perphenazine and trazodone and hydroxyzine still unable to sleep will start her on prazosin 1 mg at bedtime advised to follow with psychiatrist Discharge Plan Discharge Clinical Impression: Insomnia, Schizo-affective schizophrenia Patient Disposition: Home, Self-Care Instructions: Schizoaffective Disorder (ED), Insomnia (ED) Additional Instructions: Continue medication as prescribed by your psychiatrist Prazosin 1 mg daily at bedtime for sleep Follow-up with your psychiatrist Prescriptions: New prazosin 1 mg capsule 1 mg PO BEDTIME Qty: 20 0RF No Action hydrocodone-acetaminophen 5-325 mg tablet 1 tab PO Q4-6H PRN (Reason: pain) Qty: 3 0RF lorazepam [Ativan] 1 mg tablet 1 mg PO BEDTIME PRN (Reason: sleep) Qty: 14 0RF trazodone 50 mg tablet 50 mg PO BEDTIME PRN (Reason: sleep) Qty: 7 0RF perphenazine 2 mg tablet 2 mg PO BID cyanocobalamin (vitamin B-12) 1,000 mcg capsule 1,000 mcg PO DAILY fenofibrate 50 mg capsule 50 mg PO DAILY amlodipine 2.5 mg tablet 2.5 mg PO DAILY Interventions: ED Discharge Assessment Last Done: 06/06/22 04:35 Discharge Date/Time: 06/06/22 04:37
[2022-06-06 04:27] VITALS: BP 138/87; PULSE 97; O2SAT 97
[2022-06-06] MEDS: Prazosin HCL 1 MG CAPSULE PO (04:28)
== END 2022-06-06 04:37 | disposition home or self-care (01) ==
LOC: HO.ED 04:35
PROVIDERS: Emergency Provider Internal Medicine
DX: G47.00 Insomnia, unspecified (principal); F25.9 Schizoaffective disorder, unspecified; Z79.899 Other long term (current) drug therapy
CPT/HCPCS: 99283; 99284

== ENCOUNTER 2022-06-08 03:27 | Emergency (ER) | payer MEDICARE, MEDICAID, SELFPAY ==
[2022-06-08 03:53] VITALS: BP 147/89; PULSE 99; RESP 16; O2SAT 95; BMI 24.9
--- NOTE | 2022-06-08 06:14 | ED.ANXIETY ---
HPI - Anxiety General Chief Complaint: Anxiety Stated Complaint: ?Insomnia, anxiety Time Seen by Provider: 06/08/22 06:06 Source: patient Mode of arrival: ambulatory Limitations: no limitations History of Present Illness HPI narrative: Patient comes to the emergency room complaining of anxiety. Patient is already been seen by Psychiatry, patient takes trazodone and hydroxyzine. Patient states that she is not able to sleep. Patient also requesting 1 dose of Ativan here in the emergency room because she feels extremely anxious. Patient has no other complaints Related Data Home Medications Medication Instructions Recorded Confirmed amlodipine 2.5 mg tablet 2.5 mg PO DAILY 04/15/21 cyanocobalamin (vitamin B-12) 1,000 mcg PO DAILY 04/15/21 1,000 mcg capsule fenofibrate 50 mg capsule 50 mg PO DAILY 04/15/21 perphenazine 2 mg tablet 2 mg PO BID 04/15/21 Previous Rx's Medication Instructions Recorded hydrocodone 5 mg-acetaminophen 325 1 tab PO Q4-6H PRN pain #3 tabs 05/14/21 mg tablet lorazepam 1 mg tablet (Ativan) 1 mg PO BEDTIME PRN sleep #14 tabs 05/17/22 trazodone 50 mg tablet 50 mg PO BEDTIME PRN sleep #7 tabs 06/04/22 prazosin 1 mg capsule 1 mg PO BEDTIME #20 caps 06/06/22 olanzapine 10 mg tablet 10 mg PO BEDTIME #7 tabs 06/08/22 Allergies Allergy/AdvReac Type Severity Reaction Status Date / Time No Known Allergies Allergy Verified 05/17/22 13:42 Review of Systems Review of Systems: Constitutional : No Weight loss, No Fever, No Chills, No Night Sweats, No Fatigue, No Malaise ENT/Mouth : No Hearing loss, No Ear Pain, No Nasal Congestion, No Sinus Pain, No Hoarseness, No sore throat, No Rhinorrhea, No Swallowing Difficulty Eyes: No Eye Pain, No Swelling, No Redness, No Foreign Body, No Discharge, No Vision Changes Cardiovascular : No Chest Pain, No SOB, No Dyspnea on Exertion, No Orthopnea, No Edema, No Palpitations Respiratory : No Cough, No Sputum, No Wheezing, No Smoke Exposure, No Dyspnea Gastrointestinal : No Nausea, No Vomiting, No Diarrhea, No Constipation, No abdominal Pain, No Hematochezia, No Melena Genitourinary : no irregular bleeding, No Dysuria, No Urinary Frequency, No Hematuria, No Urinary Incontinence, No Urgency, No Flank Pain, No Urinary Flow Changes, No Hesitancy Musculoskeletal : No joint pain, No Myalgias, No Joint Swelling Skin : No Skin Lesions, No rash Neuro : No Weakness, No Numbness, No Paresthesias, No Loss of Consciousness, No Dizziness, No Headache Psych : Complaining of anxiety and insomnia, No Depression, No SI/HI/AH/VH, No Social Issues, Heme/Lymph: No Bruising, No Bleeding,No Lymphadenopathy Endocrine : No Polyuria, No Polydipsia, No Temperature Intolerance [facility] Past Medical History Medical History Anxiety HLD (hyperlipidemia) HTN (hypertension) Schizophrenia Social History Social History Alcohol intake: current Alcohol intake frequency: other Patient Tobacco Use Status: Never used Tobacco Advance Directives: No Current 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 status: 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 Physical Exam Vital Signs: Vital Signs: Last Vital Signs Pulse 99 06/08/22 03:53 Resp 16 06/08/22 03:53 BP 147/89 H 06/08/22 03:53 Pulse Ox 95 06/08/22 03:53 O2 Del Method 06/08/22 03:53 BMI result Body Mass Index 24.9 Const: Other: Appearance: Alert. Oriented X3. No acute distress. Eyes: Pupils equal, round and reactive to light. ENT: Pharynx normal. Neck: Normal inspection. Neck supple. No lymph nodes noted. No crepitus CVS: Normal heart rate and rhythm. Pulses normal. Normal S1 and S2 Respiratory: No respiratory distress. Breath sounds normal. No Wheezing. No rales Abdomen: Soft and nontender. No rigidity. No distention. Skin: Skin warm and dry. Normal skin color. Normal skin turgor. Extremities: No lower extremity edema. No Lacerations. No Rash Neuro: Oriented X 3. No motor deficit. No sensory deficit. Moving all extremities. No slurred speech. CN 2 through 12 grossly intact Psych: calm, cooperative, very anxious Medical Decision Making Medical Decision Making MDM Narrative: -patient was of her 1 dose of Ativan here in the ED. Patient was also given a prescription of olanzapine. Differential Diagnosis Differential Diagnoses: The differential diagnosis associated with the presentation includes (Anxiety, insomnia, depression) Discharge Plan Discharge Clinical Impression: Anxiety, Insomnia Patient Disposition: Home, Self-Care Instructions: Insomnia (ED), Anxiety (ED) Additional Instructions: Please follow-up with your primary care physician tomorrow. If you have any worsening or new symptoms, please return to the emergency room or call 911 Prescriptions: New olanzapine 10 mg tablet 10 mg PO BEDTIME Qty: 7 0RF No Action hydrocodone-acetaminophen 5-325 mg tablet 1 tab PO Q4-6H PRN (Reason: pain) Qty: 3 0RF lorazepam [Ativan] 1 mg tablet 1 mg PO BEDTIME PRN (Reason: sleep) Qty: 14 0RF trazodone 50 mg tablet 50 mg PO BEDTIME PRN (Reason: sleep) Qty: 7 0RF prazosin 1 mg capsule 1 mg PO BEDTIME Qty: 20 0RF perphenazine 2 mg tablet 2 mg PO BID cyanocobalamin (vitamin B-12) 1,000 mcg capsule 1,000 mcg PO DAILY fenofibrate 50 mg capsule 50 mg PO DAILY amlodipine 2.5 mg tablet 2.5 mg PO DAILY
[2022-06-08 06:15] VITALS: BP 142/87; PULSE 88; RESP 16; TEMP 36.6; O2SAT 96
[2022-06-08] MEDS: LORazepam 1 MG TABLET PO (06:26)
== END 2022-06-08 06:32 | disposition home or self-care (01) ==
PROVIDERS: Emergency Provider Emergency Medicine; PCP Family Medicine
DX: F41.9 Anxiety disorder, unspecified (principal); G47.00 Insomnia, unspecified; E78.5 Hyperlipidemia, unspecified; I10 Essential (primary) hypertension; Z79.899 Other long term (current) drug therapy
CPT/HCPCS: 99283

== ENCOUNTER 2022-08-18 09:10 | Outpatient (REF) | payer MEDICARE, MEDICAID, SELFPAY ==
--- NOTE | ~2022-08-18 | XR_ITS ---
EXAMINATION: XR CHEST CLINICAL INFORMATION: Unintentional weight loss COMPARISON: None available. TECHNIQUE: 2 views of the chest were obtained. FINDINGS: The lungs are well-expanded with bilateral apical parenchymal calcification. No acute pneumonic process seen. The heart size and pulmonary vascularity is normal. Focal sclerotic density seen in the left scapula. Rest the bony thorax is unremarkable. XR/XR chest 2V IMPRESSION: 1. No acute cardiopulmonary process seen. 2. Bilateral apical parenchymal calcification. 3. Sclerotic density left scapula, question bone island.
== END 2022-08-18 09:11 | disposition home or self-care (01) ==
LOC: HO.HHCX 09:10
PROVIDERS: Visit Provider Registered Nurse
DX: R63.4 Abnormal weight loss (principal)
CPT/HCPCS: 71046

== ENCOUNTER 2022-10-26 14:34 | Outpatient (REF) | payer MEDICARE, MEDICAID, SELFPAY ==
[2022-10-26 18:03] LABS: Alanine Aminotransferase 25 U/L (0-31); Albumin Level 4.5 g/dL (3.5-5.0); Alkaline Phosphatase 36 U/L (39-117); Anion Gap 17 (12-20); Aspartate Amino Transferase 28 U/L (5-31); Bilirubin Total 0.5 mg/dL (0.0-1.0); Blood Urea Nitrogen 18 mg/dL (9-16); Calcium 10.6 mg/dL (8.4-10.2); Carbon Dioxide 22 mmol/L (22-29); Chloride 109 mmol/L (96-108); Estimated Glomerular Filt Rate > 60; Glucose Random 73 mg/dL (60-115); Potassium 3.9 mmol/L (3.3-5.1); Sodium 144 mmol/L (135-145); Total Protein 7.8 g/dL (6.5-8.0)
[2022-10-26 18:11] LABS: Cholesterol 149 mg/dL; HDL Cholesterol 46 mg/dL; LDL Cholesterol Calculated 84 mg/dl; Triglycerides 95 mg/dL
[2022-10-26 18:25] LABS: Reflex LDLD? No
[2022-10-26 18:41] LABS: Folate 8.6 ng/mL (> or = 4.0); Vitamin B12 335 pg/mL (200-900)
== END 2022-10-26 14:35 | disposition home or self-care (01) ==
LOC: HO.HHCL 14:34
PROVIDERS: Visit Provider Family Medicine
DX: I10 Essential (primary) hypertension (principal)
CPT/HCPCS: 36415; 80053; 80061; 82607; 82746

== ENCOUNTER 2022-11-26 18:03 | Inpatient (IN) | payer MEDICARE, MEDICAID, SELFPAY ==
[2022-11-26 18:28] VITALS: BP 142/76; BP 160/85; PULSE 111; PULSE 116; RESP 22; TEMP 36.4; O2SAT 98; O2SAT 99; BMI 23.8
[2022-11-26 18:38] LABS: Appearance Urine Cloudy; Color Urine Yellow; Glucose Urine UA Negative (Negative); Leukocyte Esterase Urine Large (3+) (Negative); Nitrite Urine Negative (Negative); PH 5.5 (5.0-9.0); UMIC TRIGGER UACC YES; Urine Blood Negative (Negative); Urine Ketones Negative (Negative); Urine Protein Trace mg/dL (Neg-Trace)
[2022-11-26 18:46] LABS: Amphetamine Screen Urine Not Detected (Not Detect); Barbiturates, Urine Not Detected (Not Detect); Benzodiazepines Screen Urine Not Detected (Not Detect); Cannabinoid Screen Urine Not Detected (Not Detect); Cocaine Screen Urine Not Detected (Not Detect); Fentanyl, urine Not Detected (Not Detect); Opiate Screen Urine Not Detected (Not Detect); Phencyclidine Screen Urine Not Detected (Not Detect)
[2022-11-26 18:51] LABS: COVID-19 Test Negative (Negative); IDNOW Serial# BCCEAD1C
[2022-11-26 18:52] LABS: Alanine Aminotransferase 31 U/L (0-31); Albumin Level 4.8 g/dL (3.5-5.0); Alkaline Phosphatase 45 U/L (39-117); Anion Gap 23 (12-20); Aspartate Amino Transferase 30 U/L (5-31); Bilirubin Total 0.9 mg/dL (0.0-1.0); Blood Urea Nitrogen 17 mg/dL (9-16); Calcium 10.3 mg/dL (8.4-10.2); Carbon Dioxide 12 mmol/L (22-29); Chloride 112 mmol/L (96-108); Creatinine Clr Calc Pharmacy 46.9; Estimated Glomerular Filt Rate > 60; Ethanol < 10 mg/dL; Glucose Random 97 mg/dL (60-115); Potassium 2.9 mmol/L (3.3-5.1); Sodium 144 mmol/L (135-145); Total Protein 8.3 g/dL (6.5-8.0)
--- NOTE | 2022-11-26 19:03 | ED_ITS ---
HPI - General Adult General Chief complaint: Psychiatric Symptoms Stated complaint: SI with Plan Time Seen by Provider: 11/26/22 18:52 Source: patient, RN notes reviewed and old records reviewed Mode of arrival: EMS Limitations: other (Poor historian) History of Present Illness HPI narrative: 67-year-old female with past medical history significant for schizophrenia presents for evaluation of ?I had a knife. ? Patient reports that the ambulance was called because ?I was holding a knife and I did not want to be here anymore. ? At the time of my evaluation the patient reports ?I feel fine. She states that she is not currently feeling suicidal Patient was concerned she was going to go to senior living because ?I have toe amputations on my left foot. ? She denies any acute issues with her toes/amputations Denies any recent vomiting or diarrhea No other complaints or concerns at this time Related Data Home Medications Medication Instructions Recorded Confirmed alendronate 70 mg tablet 70 mg PO QWEEK 11/26/22 11/26/22 benztropine 0.5 mg tablet 0.5 mg PO BID 11/26/22 11/26/22 carbidopa 25 mg-levodopa 100 mg 2 tab PO QID 11/26/22 11/26/22 tablet quetiapine 50 mg tablet 50 mg PO BEDTIME 11/26/22 11/26/22 Allergies Allergy/AdvReac Type Severity Reaction Status Date / Time No Known Allergies Allergy Verified 11/26/22 18:40 Review of Systems 2 Constitutional: Constitutional: Reports as per HPI, Denies chills, Denies fatigue, Denies fever(s) and Denies headache(s) ENT: Denies headache(s) Cardiovascular: Cardiovascular: Denies chest pain and Denies dyspnea Respiratory: Respiratory: Denies cough and Denies dyspnea Gastrointestinal: Gastrointestinal: Denies abdominal pain, Denies constipation and Denies vomiting Genitourinary: Genitourinary: Denies dysuria Neurologic: Denies headache(s) and Denies focal weakness Psychiatric: Psychiatric: Reports depression and Reports suicidal ideation Endocrine: Endocrine: Denies fatigue PMF Past Medical History Medical History Anxiety HLD (hyperlipidemia) HTN (hypertension) Schizophrenia Social History Social History Alcohol intake: former Patient Tobacco Use Status: Never used Tobacco Smoked in Last 30 Days: No Use of substances other than those prescribed or required for medical reasons: No Advance Directives: No Advance Directives Information Provided: No Current 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 status: 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 Physical Exam ED Vital Signs: Vital Signs - 24 hr 11/26/22 18:28 11/27/22 06:38 Temperature 97.6 F 97.4 F Pulse Rate 111 H 73 Respiratory Rate 22 H 18 Blood Pressure 160/85 H 130/72 Pulse Oximetry 98 100 Oxygen Delivery Method Room Air Room Air BMI result Body Mass Index 23.8 Const General: healthy appearing, comfortable, no acute distress, alert and awake Nutritional Appearance: well nourished Orientation/consciousness: patient oriented x3 HENMT Head: Yes normocephalic and Yes atraumatic Eyes Eyelids: Yes eyelids normal Conjunctivae: conjunctivae normal Sclerae: sclerae normal Corneas: corneas normal Pupils: Equal, round and reactive pupils present EOM: EOMs intact bilaterally Neck Neck: Yes full ROM Resp Effort & Inspection: normal respiratory effort, able to speak in complete sentences and not labored Cardio Rate: regular rate Rhythm: regular rhythm Skin General skin exam: elasticity normal Neuro General: patient oriented x3 Cranial nerves: Yes Equal, round and reactive pupils present and Yes Bilaterally intact EOM present Cognition (Neuro): normal cognition Extrem Other: Left foot with for partial toe amputations Course Reevaluation(s) Reevaluation #1: Patient noted to have UTI and yeast in her urine. Will treat with Ceftin and a dose of Diflucan. She is medically cleared for care to evaluation Time: 00:06 Reevaluation #2: UTI, vital signs stable, uneventful night as per nurse, been seen and evaluated by care team and bed search is underway, continue with physician observation. Time: 10:44 Medications Administered Generic Name Dose Route Start Last Admin Trade Name Freq PRN Reason Stop Dose Admin Cefuroxime Axetil 250 mg 11/27/22 09:00 11/27/22 06:33 Cefuroxime Axetil 250 Mg Tablet PO 12/01/22 21:01 250 mg BID SHAQ Administration Discontinued Medications Generic Name Dose Route Start Last Admin Trade Name Freq PRN Reason Stop Dose Admin Fluconazole 100 mg 11/27/22 00:06 11/27/22 01:19 Fluconazole 100 Mg Tablet PO 11/27/22 00:07 100 mg ONCE ONE Administration Potassium Chloride 40 meq 11/26/22 18:58 11/26/22 19:13 Potassium Chloride Er 20 Meq Tab.Er.Prt PO 11/26/22 18:59 40 meq ONCE ONE Administration Medical Decision Making Medical Decision Making [facility] Narrative: 67-year-old female presents for evaluation of depression with suicidal ideation after holding a knife to herself as a suicidal gesture. Patient states that she is not actively suicidal at this very moment. Her labs are significant for a potassium of 2.9 which will be repleted orally. She denies any nausea vomiting, diarrhea. Differential Diagnosis Differential Diagnoses: The differential diagnosis associated with the presentation includes Depression Suicidal ideation Hypokalemia Schizophrenia Substance abuse Lab Data [facility] Lab Attestation statement: I reviewed the patient's lab results. Mild electrolyte abnormalities with a potassium of 2.9, chloride 112. BUN is 17 with a creatinine is 0.92. 11/26/22 18:22 11/26/22 18:22 Labs: Lab Results 11/26/22 11/26/22 11/26/22 Range/Units 18:22 18:22 18:22 WBC (4.8-10.8) X10*3/uL RBC (4.20-5.50) X10*6/uL Hgb (12.0-16.0) g/dl Hct (37.0-47.0) % MCV (80.0-98.0) fL MCH (27.0-33.0) pg MCHC (31.0-35.0) g/dl RDW (11.0-16.0) % Plt Count (160-400) X10*3/uL MPV (9.4-12.3) fL Immature Gran % (Auto) (0.0-0.4) % Neut % (Auto) (45-73) % Lymph % (Auto) (20-40) % [place] % (Auto) (2-11) % Eos % (Auto) (0-4) % Baso % (Auto) (0-2) % Lymph # (Auto) (1.2-4.9) X10*3/uL [place] # (Auto) (0.1-1.2) X10*3/uL Eos # (Auto) (0.0-0.4) X10*3/uL Baso # (Auto) (0.0-0.2) X10*3/uL Abs Immat Gran (auto) (0.00-0.03) X10*3/uL Absolute Neuts (auto) (2.0-8.3) x10*3/uL Absolute Nucleated RBC (0.0-0.012) X10*3/uL Nucleated RBC % (auto) (0.0-0.2) /100WBC Smear Tech's Comments Sodium 144 (135-145) mmol/L Potassium 2.9 L D (3.3-5.1) mmol/L Chloride 112 H (96-108) mmol/L Carbon Dioxide 12 L (22-29) mmol/L Anion Gap 23 H (12-20) BUN 17 H (9-16) mg/dL Creatinine 0.92 (0.5-1.4) mg/dL Estim Creat Clear Calc 46.9 Estimated GFR > 60 Random Glucose 97 (60-115) mg/dL Calcium 10.3 H (8.4-10.2) mg/dL Total Bilirubin 0.9 (0.0-1.0) mg/dL AST 30 (5-31) U/L ALT 31 (0-31) U/L Alkaline Phosphatase 45 (39-117) U/L Total Protein 8.3 H (6.5-8.0) g/dL Albumin 4.8 (3.5-5.0) g/dL TSH 1.01 (0.32-4.0) uIU/mL Urine Color Urine Appearance Urine pH (5.0-9.0) Ur Specific [place] (1.005-1.025) Urine Protein (Neg-Trace) mg/dL Urine Glucose (UA) (Negative) mg/dL Urine Ketones (Negative) mg/dL Urine Blood (Negative) Urine Nitrite (Negative) Ur Leukocyte Esterase (Negative) Urine RBC (0-2) /HPF Urine WBC (0-5) /HPF Ur Squamous Epith Cells (0-2) /HPF Urine Bacteria (None Seen) Hyaline Casts (0-2) /LPF Urine Yeast Urine Opiates Screen Not Detected (Not Detect) Urine Fentanyl Screen Not Detected (Not Detect) Ur Barbiturates Screen Not Detected (Not Detect) Ur Phencyclidine Scrn Not Detected (Not Detect) Ur Amphetamines Screen Not Detected (Not Detect) U Benzodiazepines Scrn Not Detected (Not Detect) Urine Cocaine Screen Not Detected (Not Detect) U Marijuana (THC) Screen Not Detected (Not Detect) Ethyl Alcohol < 10 mg/dL COVID-19 (LUPE) Negative (Negative) COVID-19 Clin Com See Note 11/26/22 11/26/22 Range/Units 18:22 18:22 WBC 10.2 (4.8-10.8) X10*3/uL RBC 4.85 (4.20-5.50) X10*6/uL Hgb 14.5 (12.0-16.0) g/dl Hct 44.3 (37.0-47.0) % MCV 91.3 (80.0-98.0) fL MCH 29.9 (27.0-33.0) pg MCHC 32.7 (31.0-35.0) g/dl RDW 13.0 (11.0-16.0) % Plt Count 283 (160-400) X10*3/uL MPV 13.8 H (9.4-12.3) fL Immature Gran % (Auto) 0.4 (0.0-0.4) % Neut % (Auto) 46.1 (45-73) % Lymph % (Auto) 41.4 H (20-40) % [place] % (Auto) 10.7 (2-11) % Eos % (Auto) 0.9 (0-4) % Baso % (Auto) 0.5 (0-2) % Lymph # (Auto) 4.2 (1.2-4.9) X10*3/uL [place] # (Auto) 1.1 (0.1-1.2) X10*3/uL Eos # (Auto) 0.1 (0.0-0.4) X10*3/uL Baso # (Auto) 0.1 (0.0-0.2) X10*3/uL Abs Immat Gran (auto) 0.04 H (0.00-0.03) X10*3/uL Absolute Neuts (auto) 4.7 (2.0-8.3) x10*3/uL Absolute Nucleated RBC 0.000 (0.0-0.012) X10*3/uL Nucleated RBC % (auto) 0.0 (0.0-0.2) /100WBC Smear Tech's Comments VERIFIED Sodium (135-145) mmol/L Potassium (3.3-5.1) mmol/L Chloride (96-108) mmol/L Carbon Dioxide (22-29) mmol/L Anion Gap (12-20) BUN (9-16) mg/dL Creatinine (0.5-1.4) mg/dL Estim Creat Clear Calc Estimated GFR Random Glucose (60-115) mg/dL Calcium (8.4-10.2) mg/dL Total Bilirubin (0.0-1.0) mg/dL AST (5-31) U/L ALT (0-31) U/L Alkaline Phosphatase (39-117) U/L Total Protein (6.5-8.0) g/dL Albumin (3.5-5.0) g/dL TSH (0.32-4.0) uIU/mL Urine Color Yellow Urine Appearance Cloudy Urine pH 5.5 (5.0-9.0) Ur Specific [place] 1.020 (1.005-1.025) Urine Protein Trace (Neg-Trace) mg/dL Urine Glucose (UA) Negative (Negative) mg/dL Urine Ketones Negative (Negative) mg/dL Urine Blood Negative (Negative) Urine Nitrite Negative (Negative) Ur Leukocyte Esterase Large (3+) H (Negative) Urine RBC 0-2 (0-2) /HPF Urine WBC 6-10 (0-5) /HPF Ur Squamous Epith Cells >20 (0-2) /HPF Urine Bacteria 4+ (None Seen) Hyaline Casts 0-2 (0-2) /LPF Urine Yeast Present Urine Opiates Screen (Not Detect) Urine Fentanyl Screen (Not Detect) Ur Barbiturates Screen (Not Detect) Ur Phencyclidine Scrn (Not Detect) Ur Amphetamines Screen (Not Detect) U Benzodiazepines Scrn (Not Detect) Urine Cocaine Screen (Not Detect) U Marijuana (THC) Screen (Not Detect) Ethyl Alcohol mg/dL COVID-19 (LUPE) (Negative) COVID-19 Clin Com Discharge Plan Discharge Clinical Impression: Acute psychosis, Chronic schizophrenia, Suicidal ideation, Acute UTI Patient Disposition: Still a Patient Prescriptions: No Action alendronate 70 mg tablet 70 mg PO QWEEK carbidopa-levodopa 25-100 mg Tablet 2 tab PO QID Rx Instructions: take one tablet in the morning and at noon quetiapine 50 mg tablet 50 mg PO BEDTIME benztropine 0.5 mg Tablet 0.5 mg PO BID Interventions: [place]-Suicide Risk Severity Scale Last Done: 11/27/22 06:27
[2022-11-26] MEDS: Potassium Chloride ER 20 MEQ TAB.ER.PRT 40 MEQ PO (19:13)
[2022-11-26 19:28] LABS: Basophils Absolute Auto 0.1 X10*3/uL (0.0-0.2); Basophils Percent Auto 0.5 % (0-2); Eosinophils Absolute Auto 0.1 X10*3/uL (0.0-0.4); Eosinophils Percent Auto 0.9 % (0-4); Hematocrit 44.3 % (37.0-47.0); Hemoglobin 14.5 g/dl (12.0-16.0); Imm Gran Abs Auto 0.04 X10*3/uL (0.00-0.03); Imm Gran Pct Auto 0.4 % (0.0-0.4); Lymphocytes Absolute Auto 4.2 X10*3/uL (1.2-4.9); Lymphocytes Percent Auto 41.4 % (20-40); MANUAL DIFF FLAG SCAN; Mean Corpuscular HGB Conc 32.7 g/dl (31.0-35.0); Mean Corpuscular Hemoglobin 29.9 pg (27.0-33.0); Mean Corpuscular Volume 91.3 fL (80.0-98.0); Mean Platelet Volume 13.8 fL (9.4-12.3); Monocytes Absolute Auto 1.1 X10*3/uL (0.1-1.2); Monocytes Percent Auto 10.7 % (2-11); Neutrophils Absolute Auto 4.7 x10*3/uL (2.0-8.3); Neutrophils Percent Auto 46.1 % (45-73); Platelet Count 283 X10*3/uL (160-400); Red Blood Count 4.85 X10*6/uL (4.20-5.50); SCAN SMEAR FLAG 1; White Blood Count 10.2 X10*3/uL (4.8-10.8)
[2022-11-26 19:31] LABS: PLT ABN DIST 1
[2022-11-26 19:32] LABS: SLIDE REVIEW VERIFIED
[2022-11-26 19:50] LABS: Thyroid Stimulating Hormone 1.01 uIU/mL (0.32-4.0)
[2022-11-26 21:33] LABS: Bacteria Urine 4+ (None Seen); Hyaline Casts Urine 0-2 /LPF (0-2); RBC Urine 0-2 /HPF (0-2); Squamous Epithelial Cell Urine >20 /HPF (0-2); UACC Culture Trigger YES
--- NOTE | 2022-11-27 | ECG_ITS ---
Test Reason : admission Blood Pressure : / mmHG Vent. Rate : 086 BPM Atrial Rate : 086 BPM P-R Int : 138 ms QRS Dur : 072 ms QT Int : 350 ms P-R-T Axes : 066 068 055 degrees QTc Int : 418 ms Normal sinus rhythm Normal ECG When compared with ECG of 29-NOV-2022 16:31, Vent. rate has decreased BY [address] no longer depressed in Inferior leads Referred By: Jourdan Martinez Electronically Signed By:FINESSE LIVINGSTON
[2022-11-27] MEDS: Fluconazole 100 MG TABLET PO (01:19)
[2022-11-27 06:38] VITALS: BP 130/72; PULSE 73; RESP 18; TEMP 36.3; O2SAT 100
[2022-11-27 10:51] VITALS: BP 140/92; PULSE 110; RESP 16; TEMP 36.8; O2SAT 99
--- NOTE | 2022-11-27 10:56 | ECG_ITS ---
Test Reason : CHECK QT Blood Pressure : / mmHG Vent. Rate : 094 BPM Atrial Rate : 094 BPM P-R Int : 130 ms QRS Dur : 086 ms QT Int : 380 ms P-R-T Axes : 071 072 059 degrees QTc Int : 475 ms Normal sinus rhythm Normal ECG No previous ECGs available Referred By: Reece Evans Electronically Signed By:FINESSE LIVINGSTON
[2022-11-27] MEDS: Carbidopa/Levodopa 25/100 TABLET 1 TAB PO ×2 (12:02→21:11)
[2022-11-27] MEDS: Fenofibrate 160 MG TABLET PO (12:02)
[2022-11-27] MEDS: amLODIPine Besylate 2.5 MG TABLET PO (12:02)
[2022-11-27] MEDS: Benztropine Mesylate 0.5 MG TABLET PO ×2 (12:02→21:11)
--- NOTE | 2022-11-27 12:45 | PC.NURSE ---
Melia has remained resting in her bed this shift, she has been compliant with her medications and is pleasant when engaged. Noticeable but mild bilateral tremor to hands d/t Parkinson's which she reports is her baseline, Denies SI/HI. Fair appetite.
[2022-11-27 20:10] VITALS: BP 138/77; PULSE 97; RESP 18; TEMP 36.6; O2SAT 97
[2022-11-27] MEDS: Atorvastatin Calcium 10 MG TABLET PO (21:11)
--- NOTE | 2022-11-27 22:15 | PC.ADMIT ---
Ms. Harp was admitted to at 20:00 from? [facility] on a CV for SI and was placed on 15 min safety checks. PT is currently denying SI and states this was only in the moment. The precipitant of admission holding a knife to herself and threatening SI for unclear reasons. She is alert, oriented to person, place and time and situation. She is cooperative with admission process. Patient reports her mood as alright . Affect is anxious. She denies hallucinations but appears internally preoccupied as she frequently stops speaking and stares off during the admission process. Thought process is disorganized and ability to focus is poor. Appetite is reported to be not good and sleep is good . PT reports this to be her second time requiring IPLOC, the last time being 20+ years ago. PT is a poor historian, reports med changes to be a factor of her admission but she is unable to articulate why. Tox screen negative as well as COVID. VS stable. Admission orders obtained, tx plan and safety tool completed. PT resting in bed, in no apparent distress. Will continue to monitor.
--- NOTE | 2022-11-27 22:22 | PC.NURSE ---
truck loader overhead crane completed @ 20:05 with this telegraphic typewriter installer and Zraia, RN. No skin concerns at this time. No contraband found.
[2022-11-28 06:00] VITALS: BP 138/68; PULSE 82; RESP 16; TEMP 36.3; O2SAT 95
[2022-11-28] MEDS: Fenofibrate 160 MG TABLET PO (08:48)
[2022-11-28] MEDS: Benztropine Mesylate 0.5 MG TABLET PO ×2 (08:48→20:04)
[2022-11-28] MEDS: amLODIPine Besylate 2.5 MG TABLET PO (08:48)
[2022-11-28] MEDS: Carbidopa/Levodopa 25/100 TABLET 1 TAB PO ×2 (08:48→20:04)
[2022-11-28 09:19] LABS: Alanine Aminotransferase 7 U/L (0-31); Alkaline Phosphatase 36 U/L (39-117); Anion Gap 12 (12-20); Aspartate Amino Transferase 26 U/L (5-31); Bilirubin Total 0.4 mg/dL (0.0-1.0); Blood Urea Nitrogen 16 mg/dL (9-16); Calcium 10.2 mg/dL (8.4-10.2); Carbon Dioxide 21 mmol/L (22-29); Chloride 115 mmol/L (96-108); Cholesterol 139 mg/dL (<200); Creatinine Clr Calc Pharmacy 46.4; Estimated Glomerular Filt Rate > 60; Glucose Fasting 92 mg/dL (60-99); HDL Cholesterol 41 mg/dL (>40); LDL Cholesterol Calculated 78 mg/dL (<100); Potassium 4.1 mmol/L (3.3-5.1); Sodium 144 mmol/L (135-145); Total Protein 6.8 g/dL (6.5-8.0); Triglycerides 101 mg/dL (<150)
--- NOTE | 2022-11-28 09:44 | P.HPPS_ITS ---
HPI Date of Service: 11/28/22 Chief Complaint: SI Sources of Information: patient interviewed, chart reviewed and crisis/core team assessment reviewed [facility] Medical History Anxiety HLD (hyperlipidemia) HTN (hypertension) Schizophrenia Diagnostics Vital Signs (24Hr): Vital Signs - 24 hr 11/27/22 10:51 11/27/22 20:10 Temperature 98.3 F 97.9 F Pulse Rate 110 H 97 Respiratory Rate 16 18 Blood Pressure 140/92 H 138/77 Pulse Oximetry 99 97 Oxygen Delivery Method Room Air BMI result Body Mass Index 23.8 Labs 11/26/22 18:22 11/28/22 07:25 Labs: Laboratory Results - last 48 hr 11/26/22 11/26/22 11/26/22 18:22 18:22 18:22 WBC RBC Hgb Hct MCV MCH MCHC RDW Plt Count MPV Immature Gran % (Auto) Neut % (Auto) Lymph % (Auto) [place] % (Auto) Eos % (Auto) Baso % (Auto) Lymph # (Auto) [place] # (Auto) Eos # (Auto) Baso # (Auto) Abs Immat Gran (auto) Absolute Neuts (auto) Absolute Nucleated RBC Nucleated RBC % (auto) Smear Tech's Comments Sodium 144 Potassium 2.9 L D Chloride 112 H Carbon Dioxide 12 L Anion Gap 23 H BUN 17 H Creatinine 0.92 Estim Creat Clear Calc 46.9 Estimated GFR > 60 Random Glucose 97 Fasting Glucose Calcium 10.3 H Total Bilirubin 0.9 AST 30 ALT 31 Alkaline Phosphatase 45 Total Protein 8.3 H Albumin 4.8 Triglycerides Cholesterol LDL Cholesterol, Calc HDL Cholesterol TSH 1.01 Urine Color Urine Appearance Urine pH Ur Specific [place] Urine Protein Urine Glucose (UA) Urine Ketones Urine Blood Urine Nitrite Ur Leukocyte Esterase Urine RBC Urine WBC Ur Squamous Epith Cells Urine Bacteria Hyaline Casts Urine Yeast Urine Opiates Screen Not Detected Urine Fentanyl Screen Not Detected Ur Barbiturates Screen Not Detected Ur Phencyclidine Scrn Not Detected Ur Amphetamines Screen Not Detected U Benzodiazepines Scrn Not Detected Urine Cocaine Screen Not Detected U Marijuana (THC) Screen Not Detected Ethyl Alcohol < 10 COVID-19 (LUPE) Negative COVID-19 Clin Com See Note 11/26/22 11/26/22 11/28/22 18:22 18:22 07:25 WBC 10.2 RBC 4.85 Hgb 14.5 Hct 44.3 MCV 91.3 MCH 29.9 MCHC 32.7 RDW 13.0 Plt Count 283 MPV 13.8 H Immature Gran % (Auto) 0.4 Neut % (Auto) 46.1 Lymph % (Auto) 41.4 H [place] % (Auto) 10.7 Eos % (Auto) 0.9 Baso % (Auto) 0.5 Lymph # (Auto) 4.2 [place] # (Auto) 1.1 Eos # (Auto) 0.1 Baso # (Auto) 0.1 Abs Immat Gran (auto) 0.04 H Absolute Neuts (auto) 4.7 Absolute Nucleated RBC 0.000 Nucleated RBC % (auto) 0.0 Smear Tech's Comments VERIFIED Sodium 144 Potassium 4.1 D Chloride 115 H Carbon Dioxide 21 L Anion Gap 12 BUN 16 Creatinine 0.93 Estim Creat Clear Calc 46.4 Estimated GFR > 60 Random Glucose Fasting Glucose 92 Calcium 10.2 Total Bilirubin 0.4 AST 26 ALT 7 Alkaline Phosphatase 36 L Total Protein 6.8 Albumin 4.0 Triglycerides 101 Cholesterol 139 LDL Cholesterol, Calc 78 HDL Cholesterol 41 TSH Urine Color Yellow Urine Appearance Cloudy Urine pH 5.5 Ur Specific [place] 1.020 Urine Protein Trace Urine Glucose (UA) Negative Urine Ketones Negative Urine Blood Negative Urine Nitrite Negative Ur Leukocyte Esterase Large (3+) H Urine RBC 0-2 Urine WBC 6-10 Ur Squamous Epith Cells >20 Urine Bacteria 4+ Hyaline Casts 0-2 Urine Yeast Present Urine Opiates Screen Urine Fentanyl Screen Ur Barbiturates Screen Ur Phencyclidine Scrn Ur Amphetamines Screen U Benzodiazepines Scrn Urine Cocaine Screen U Marijuana (THC) Screen Ethyl Alcohol COVID-19 (LUPE) COVID-19 Clin Com Meds/Allergies Meds Home Medications Medication Instructions Recorded Confirmed Type alendronate 70 mg tablet 70 mg PO QWEEK 11/26/22 11/26/22 History benztropine 0.5 mg tablet 0.5 mg PO BID 11/26/22 11/26/22 History quetiapine 50 mg tablet 50 mg PO BEDTIME 11/26/22 11/26/22 History amlodipine 2.5 mg tablet 2.5 mg PO DAILY 11/27/22 11/27/22 History carbidopa 25 mg-levodopa 100 mg 1 tab PO BID 11/27/22 11/27/22 History tablet fenofibrate 160 mg tablet 160 mg PO DAILY 11/27/22 11/27/22 History simvastatin 20 mg tablet 20 mg PO BEDTIME 11/27/22 11/27/22 History Allergies Allergies Allergy/AdvReac Type Severity Reaction Status Date / Time No Known Allergies Allergy Verified 11/26/22 18:40 Assessment & Plan Statement Statement: I have reviewed the history and physical and performed a pertinent examination on my patient. No changes have occurred unless specified. If the History and Physical was not performed prior to admission, the Hospitalist's service will be consulted for completing the admission physical. Time Spent With Patient Time: Total time managing care of this patient today ____ minutes.
--- NOTE | 2022-11-28 09:50 | PHA.MEDREC ---
Pharmacy Consult ? Medication Reconciliation Pharmacy has completed the medication reconciliation. reviewed med rec done by nursing.
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
[2022-11-28 18:37] VITALS: BP 157/73; PULSE 74; TEMP 36.6
[2022-11-28] MEDS: Atorvastatin Calcium 10 MG TABLET PO (20:04)
[2022-11-28] MEDS: risperiDONE 1 MG TABLET PO (20:04)
[2022-11-29 08:00] VITALS: BP 110/60; PULSE 68; RESP 18; TEMP 36.3; O2SAT 98
[2022-11-29] MEDS: Fenofibrate 160 MG TABLET PO (08:54)
[2022-11-29] MEDS: Benztropine Mesylate 0.5 MG TABLET PO ×2 (08:54→21:41)
[2022-11-29] MEDS: Carbidopa/Levodopa 25/100 TABLET 1 TAB PO ×2 (08:54→21:41)
[2022-11-29] MEDS: amLODIPine Besylate 2.5 MG TABLET PO (08:54)
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
[2022-11-29 16:10] VITALS: BP 126/87; PULSE 138; RESP 26; TEMP 36.3; O2SAT 97
--- NOTE | 2022-11-29 16:20 | PC.NURSE ---
Patient was in milieu, was approached by this RN, appeared to have slightly increased work of breathing (rr 26), vital signs obtained indicating hr 130-140. Patient complained of feeling shakey but denies other symptoms (-chest pain, -sob, -palpitations, -dizziness) provider notified, ekg obtained.
--- NOTE | 2022-11-29 16:26 | ECG_ITS ---
Test Reason : tachycardia/irregular hr Blood Pressure : / mmHG Vent. Rate : 137 BPM Atrial Rate : 137 BPM P-R Int : 130 ms QRS Dur : 064 ms QT Int : 298 ms P-R-T Axes : 066 060 039 degrees QTc Int : 449 ms Sinus tachycardia Nonspecific ST abnormality Abnormal ECG When compared with ECG of 27-NOV-2022 11:29, Heart rate has increased Nonspecific ST abnormality is now Present Referred By: Jourdan Martinez Electronically Signed By:FINESSE LIVINGSTON
[2022-11-29 16:46] VITALS: BP 104/86; PULSE 146; RESP 26; O2SAT 99
[2022-11-29 17:00] VITALS: PULSE 142; RESP 28
--- NOTE | 2022-11-29 17:00 | PM.EVENT ---
Event Note Date of Service: 11/29/22 Event Note: asymptomatic sinus tach will change amlodipnie to lopressor Time Spent With Patient Time: Total time managing care of this patient today ____ minutes.
[2022-11-29] MEDS: Metoprolol Tartrate 25 MG TABLET PO (17:15)
--- NOTE | 2022-11-29 17:20 | PC.NURSE ---
Patient continues to be tachycardic and tachypneic with audible respirations at rest, patient medicated as ordered, patient continues to deny complaints. Will reevaluate vitals for effectiveness of medication.
[2022-11-29 18:14] VITALS: BP 134/75; PULSE 74; RESP 24; O2SAT 97
[2022-11-29] MEDS: risperiDONE 1 MG TABLET PO (21:41)
[2022-11-30 06:00] VITALS: BP 141/73; PULSE 94; RESP 16; TEMP 36.9; O2SAT 99
[2022-11-30] MEDS: Metoprolol Tartrate 25 MG TABLET PO ×2 (09:03→20:01)
[2022-11-30] MEDS: Fenofibrate 160 MG TABLET PO (09:03)
[2022-11-30] MEDS: Benztropine Mesylate 0.5 MG TABLET PO ×2 (09:03→20:01)
[2022-11-30] MEDS: Carbidopa/Levodopa 25/100 TABLET 1 TAB PO ×2 (09:03→20:01)
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
[2022-11-30 19:59] VITALS: BP 112/62; PULSE 60; TEMP 36.4
[2022-11-30] MEDS: risperiDONE 1 MG TABLET PO (20:01)
[2022-12-01 08:20] VITALS: BP 117/56; PULSE 62; RESP 16; TEMP 36.6; O2SAT 98
[2022-12-01] MEDS: Benztropine Mesylate 0.5 MG TABLET PO ×2 (08:50→19:59)
[2022-12-01] MEDS: risperiDONE 1 MG TABLET PO ×2 (08:50→19:59)
[2022-12-01] MEDS: Metoprolol Tartrate 25 MG TABLET PO ×2 (08:50→19:58)
[2022-12-01] MEDS: Fenofibrate 160 MG TABLET PO (08:50)
[2022-12-01] MEDS: Carbidopa/Levodopa 25/100 TABLET 1 TAB PO ×2 (08:50→19:59)
--- NOTE | 2022-12-01 09:55 | P.PNPSI_ITS ---
Subjective Subjective Date of Service: 12/01/22 Reason For Visit: SI Interim History: Met with patient; discussed with team Patient reiterates no auditory hallucinations and that she has never had them for 20 years. She maintains she is not worried about being locked up and said this recent incident was because she was all upset for about a 2 day. Which has resolved. Patient very anxious today about her bank card. She asked multiple staff repeatedly to see if it was still in her purse, saying she thinks is pose to be there but she just wants to make sure. She also talked about her roommate needing it to pay bills. Patient is okay with being on the Risperdal for now though she reminds that she was on before and thinks it probably does not work because she was eventually taken off of it. Patient is worried about leaving too soon, worried that she may get dysregulated again since she is not sure why happened in the 1st place. Circuits Engineer has left several messages for outpatient provider. Mental Status Exam Mental Status Exam Narrative: Pt is alert and oriented; behavior is anxious but cooperative, friendly and calm; patient is not in distress; dressed in hospital attire, disheveled; mood is described as okay and affect congruent, constricted; eye contact appropriate; Speech is normal rate, volume and prosody and not pressured; no psychomotor agitation/retardation present; thought process is goal oriented; Thought content is on treatment and discharge; says previous delusional worry is resolved (does not think she is going to be arrested for not seeing the control operator flow coat); can discuss pertinent/relevant; denies any SI/HI. Denied AVH, though intermittently seems to be responding to internal stimuli. Patients insight and judgment fair Diagnostics Vital Signs (24Hr): Vital Signs - 24 hr 11/30/22 19:59 12/01/22 08:20 Temperature 97.6 F 97.9 F Pulse Rate 60 62 Respiratory Rate 16 Blood Pressure 112/62 117/56 L Pulse Oximetry 98 Oxygen Delivery Method Room Air BMI result Body Mass Index 23.8 Labs 11/26/22 18:22 11/28/22 07:25 Medications Medications Current Medications Acetaminophen (Acetaminophen 325 Mg Tablet) 650 mg PO Q6H PRN PRN Reason: Headache/Pain Mild Scale (1-3) Al Hydroxide/Mg Hydroxide (Magnesium Hydrox/Alum Hydrox 30 Ml Oral.Susp) 30 ml PO Q6H PRN PRN Reason: Heartburn/Nausea Benztropine Mesylate (Benztropine Mesylate 0.5 Mg Tablet) 0.5 mg PO BID [facility] Last Admin: 12/01/22 08:50 Dose: 0.5 mg Carbidopa/Levodopa (Carbidopa/Levodopa 25/100 Tablet) 1 tab PO BID [facility] Last Admin: 12/01/22 08:50 Dose: 1 tab Cefuroxime Axetil (Cefuroxime Axetil 250 Mg Tablet) 250 mg PO BID [facility] Stop: 12/01/22 21:01 Last Admin: 12/01/22 08:50 Dose: 250 mg Fenofibrate (Fenofibrate 160 Mg Tablet) 160 mg PO DAILY [facility] Last Admin: 12/01/22 08:50 Dose: 160 mg Hydroxyzine HCl (Hydroxyzine Hcl 25 Mg Tablet) 25 mg PO Q6H PRN PRN Reason: Anxiety Magnesium Hydroxide (Milk Of Magnesia 30 Ml Oral.Susp) 30 ml PO DAILY PRN PRN Reason: Constipation Metoprolol Tartrate (Metoprolol Tartrate 25 Mg Tablet) 25 mg PO BID [facility]; Protocol Last Admin: 12/01/22 08:50 Dose: 25 mg Risperidone (Risperidone 1 Mg Tablet) 1 mg PO BID [facility] Last Admin: 12/01/22 08:50 Dose: 1 mg Trazodone HCl (Trazodone Hcl 50 Mg Tablet) 50 mg PO BEDTIME MRX1 PRN PRN Reason: Insomnia Allergies Allergies Allergy/AdvReac Type Severity Reaction Status Date / Time No Known Allergies Allergy Verified 11/26/22 18:40 Assessment & Plan Assessment & Plan (1) Chronic schizophrenia: Status: Acute Code(s): F20.9 - Schizophrenia, unspecified Plan Melia is a 67-year-old white, , unemployed, mother of 2 daughters, 1 surviving.? Patient has history of schizophrenia however no hospitalizations for the last 20 years. This is her 1st [facility] psychiatric admission and 2nd psychiatric hospitalization, the 1st 1 was about 20 years ago.? The 120 years ago was because of psychotic symptoms, paranoid ideations and delusions.? She could not give much reliable history for what is been happening in between however she is seen and treated at 0 and previously had been on psychotropics including Trilafon up to 4 mg, Zyprexa up to 10 mg but she states that they were discontinued and she may have been on something else which she cannot remember the name nor were there any bottles in her belongings.? According to her adult daughter she has been showing signs of deterioration since March.? This may have been triggered by the of 1 of her sisters.? She has been more irritable, reactive, at times having trouble sleeping.? What led to coming to the emergency room for was that she may have been engaged in an argument with her male roommate and then she became quite upset and that picked up a knife, threatening to harm herself and also telling her roommate to kill himself (she did not threaten roommate).? IMpression: In conclusion Melia meets criteria for hospital level of care for safety and stabilization. I tried contacting [facility] to see if any new medications were initiated but they did not have any and she states that she get some of her medications through mail order pharmacy. I will put her on low-dose Risperdal 1 mg until we can talk to her prescriber at [facility] on Tuesday. Contacts to be made with her daughter who appears to have a good sense about how Melia has been recently. She will meet with her treatment team on 11/30. I discussed initiating Risperdal and she is open to it. Side effects were also discussed. Hospital course: 11/30 Patient reports that she is doing okay. She said that today she is really not so worried she will be locked up for not having gone to the control operator flow coat. Staff reports that patient complained of auditory hallucinations keeping her from sleeping last night however on inquiry, patient says she really does not have does not hear voices; will need to further clarify. -Regarding incident prior to coming to the hospital. She said she was all upset for a few days because of her worries about being locked up due to her foot and that is why she thought of killing herself. She no longer thinks this. -She does not know why she told her roommate to kill himself, other than she was upset in general; reiterates that she no longer thinks this. -left messages with her outpatient provider NELY Noguera. Patient agrees to continue with Risperdal at increased dose for now 12/01 continue current treatment plan Plan: CV Q 15 minute checks Continue Risperdal 1 mg b.i.d..; Left messages for patient's prescriber to get information on medication history Patient educated on: diagnosis and medication risk/benefits Informed Consent: understands Reason for continued inpatient stay Substantial Risk for: stable for discharge and med/psych decompensation Time Spent With Patient Time: Total time managing care of this patient today ____ minutes.
[2022-12-01 18:00] VITALS: BP 122/68; PULSE 84; RESP 18; TEMP 36.4; O2SAT 98
[2022-12-02 07:00] VITALS: BMI 22.6
--- NOTE | 2022-12-02 08:17 | P.PNPSI_ITS ---
Subjective Subjective Date of Service: 12/02/22 Reason For Visit: SI Interim History: With patient; discussed with team Patient reports having trouble sleeping. Denies any AVH. Is anxious and worried about having another emotional breakdown developing psychotic symptoms. Agrees to continue with Risperdal with Seroquel as a backup for insomnia Medical Unit Secretary discussed case with patient's outpatient provider, NELY Noguera who reports that patient has overall been stable in the community having been on perphenazine for quite a while (though provider not when it was 1st started); reports that patient had a distant psychotic episode in her 40s but nothing since until February 2022 when patient sister and she started isolating from the family, having lots of somatic symptom complaints, not sleeping and up all night pacing the halls. Seroquel was started at bedtime for insomnia. Over the next few months patient seem to developed parkinsonian symptoms ostensibly from perphenazine and dose was lowered. Patient was supposed to be tapered off perphenazine however provider found out that patient was still taking it this past August and around that time patient stop taking it, the remained on Seroquel at bedtime. Provider agrees that perhaps coming off perphenazine was the trigger for this recent emerging of manic/psychotic symptoms. She agrees with having patient continue Risperdal for now since patient seems to be sleeping and psychosis resolved. Diagnostics Vital Signs (24Hr): Vital Signs - 24 hr 12/01/22 08:20 12/01/22 18:00 Temperature 97.9 F 97.6 F Pulse Rate 62 84 Respiratory Rate 16 18 Blood Pressure 117/56 L 122/68 Pulse Oximetry 98 98 Oxygen Delivery Method Room Air Room Air BMI result Body Mass Index 23.8 Labs 11/26/22 18:22 11/28/22 07:25 Medications Medications Current Medications Acetaminophen (Acetaminophen 325 Mg Tablet) 650 mg PO Q6H PRN PRN Reason: Headache/Pain Mild Scale (1-3) Al Hydroxide/Mg Hydroxide (Magnesium Hydrox/Alum Hydrox 30 Ml Oral.Susp) 30 ml PO Q6H PRN PRN Reason: Heartburn/Nausea Benztropine Mesylate (Benztropine Mesylate 0.5 Mg Tablet) 0.5 mg PO BID [facility] Last Admin: 12/01/22 19:59 Dose: 0.5 mg Carbidopa/Levodopa (Carbidopa/Levodopa 25/100 Tablet) 1 tab PO BID [facility] Last Admin: 12/01/22 19:59 Dose: 1 tab Fenofibrate (Fenofibrate 160 Mg Tablet) 160 mg PO DAILY [facility] Last Admin: 12/01/22 08:50 Dose: 160 mg Hydroxyzine HCl (Hydroxyzine Hcl 25 Mg Tablet) 25 mg PO Q6H PRN PRN Reason: Anxiety Magnesium Hydroxide (Milk Of Magnesia 30 Ml Oral.Susp) 30 ml PO DAILY PRN PRN Reason: Constipation Metoprolol Tartrate (Metoprolol Tartrate 25 Mg Tablet) 25 mg PO BID [facility]; Protocol Last Admin: 12/01/22 19:58 Dose: 25 mg Risperidone (Risperidone 1 Mg Tablet) 1 mg PO BID [facility] Last Admin: 12/01/22 19:59 Dose: 1 mg Trazodone HCl (Trazodone Hcl 50 Mg Tablet) 50 mg PO BEDTIME MRX1 PRN PRN Reason: Insomnia Allergies Allergies Allergy/AdvReac Type Severity Reaction Status Date / Time No Known Allergies Allergy Verified 11/26/22 18:40 Assessment & Plan Assessment & Plan (1) Schizoaffective disorder: Qualifiers: Schizoaffective disorder type: bipolar Qualified Code(s): F25.0 - Schizoaffective disorder, bipolar type Status: Acute Code(s): F25.9 - Schizoaffective disorder, unspecified Plan Melia is a 67-year-old white, , unemployed, mother of 2 daughters, 1 surviving.? Patient has history of schizophrenia however no hospitalizations for the last 20 years. This is her 1st [facility] psychiatric admission and 2nd psychiatric hospitalization, the 1st 1 was about 20 years ago.? The 120 years ago was because of psychotic symptoms, paranoid ideations and delusions.? She could not give much reliable history for what is been happening in between however she is seen and treated at 0 and previously had been on psychotropics including Trilafon up to 4 mg, Zyprexa up to 10 mg but she states that they were discontinued and she may have been on something else which she cannot remember the name nor were there any bottles in her belongings.? According to her adult daughter she has been showing signs of deterioration since March.? This may have been triggered by the of 1 of her sisters.? She has been more irritable, reactive, at times having trouble sleeping.? What led to coming to the emergency room for was that she may have been engaged in an argument with her male roommate and then she became quite upset and that picked up a knife, threatening to harm herself and also telling her roommate to kill himself (she did not threaten roommate).? IMpression: In conclusion Melia meets criteria for hospital level of care for safety and stabilization. I tried contacting [facility] to see if any new medications were initiated but they did not have any and she states that she get some of her medications through mail order pharmacy. I will put her on low-dose Risperdal 1 mg until we can talk to her prescriber at [facility] on Tuesday. Contacts to be made with her daughter who appears to have a good sense about how Melia has been recently. She will meet with her treatment team on 11/30. I discussed initiating Risperdal and she is open to it. Side effects were also discussed. Hospital course: 11/30 Patient reports that she is doing okay. She said that today she is really not so worried she will be locked up for not having gone to the fine grade operator. Staff reports that patient complained of auditory hallucinations keeping her from sleeping last night however on inquiry, patient says she really does not have does not hear voices; will need to further clarify. -Regarding incident prior to coming to the hospital. She said she was all upset for a few days because of her worries about being locked up due to her foot and that is why she thought of killing herself. She no longer thinks this. -She does not know why she told her roommate to kill himself, other than she was upset in general; reiterates that she no longer thinks this. -left messages with her outpatient provider NELY Noguera. Patient agrees to continue with Risperdal at increased dose for now 12/01 continue current treatment plan 12/02 patient agrees with plan for Risperdal and Seroquel as a backup for insomnia. Patient denies AVH; denies paranoid thinking however remains internally preoccupied and anxious. Fearful about leaving -sba underwriter also discussed transition from amlodipine to metoprolol with which patient agrees Medical Unit Secretary discussed case with patient's outpatient provider, NELY Noguera who reports that patient has overall been stable in the community having been on perphenazine for quite a while (though provider not when it was 1st started); reports that patient had a distant psychotic episode in her 40s but nothing since until February 2022 when patient sister and she started isolating from the family, having lots of somatic symptom complaints, not sleeping and up all night pacing the halls. Seroquel was started at bedtime for insomnia. Over the next few months patient seem to developed parkinsonian symptoms ostensibly from perphenazine and dose was lowered. Patient was supposed to be tapered off perphenazine however provider found out that patient was still taking it this past August and around that time patient stop taking it, the remained on Seroquel at bedtime. Provider agrees that perhaps coming off perphenazine was the trigger for this recent emerging of manic/psychotic symptoms. She agrees with having patient continue Risperdal for now since patient seems to be sleeping and psychosis resolved. -seems that patient has psychotic illness, schizoaffective disorder with hypomanic episodes; although patient does not have overt psychotic symptoms there likely present at a low level that only clearly produces itself during times of stress but is not absent and has caused some limitations on patient's lifetime functioning. Risperdal less likely to cause parkinsonian is than perphenazine; this was discussed and patient agrees to continue with treatment plan Plan: CV Q 15 minute checks Continue Risperdal 1 mg b.i.d..; Add Seroquel 100 mg q.h.s. p.r.n. for continued insomnia Continue trazodone 50 mg q.h.s. p.r.n. for insomnia Patient educated on: diagnosis, medication risk/benefits and medical condition Informed Consent: understands Reason for continued inpatient stay Substantial Risk for: rapid decompensation Time Spent With Patient Time: Total time managing care of this patient today ____ minutes.
[2022-12-02] MEDS: risperiDONE 1 MG TABLET PO ×2 (08:39→20:00)
[2022-12-02] MEDS: Carbidopa/Levodopa 25/100 TABLET 1 TAB PO ×2 (08:39→20:00)
[2022-12-02] MEDS: Benztropine Mesylate 0.5 MG TABLET PO ×2 (08:39→20:00)
[2022-12-02] MEDS: Fenofibrate 160 MG TABLET PO (08:39)
[2022-12-02] MEDS: Metoprolol Tartrate 25 MG TABLET PO ×2 (08:39→20:00)
[2022-12-02 08:42] VITALS: BP 136/70; PULSE 80; RESP 16; TEMP 36.2; O2SAT 97
[2022-12-02 19:50] VITALS: BP 124/66; PULSE 90; TEMP 36.3
[2022-12-03 06:00] VITALS: BP 131/74; PULSE 82; RESP 18; TEMP 36.4; O2SAT 99
[2022-12-03] MEDS: Benztropine Mesylate 0.5 MG TABLET PO ×2 (08:45→21:01)
[2022-12-03] MEDS: risperiDONE 1 MG TABLET PO ×2 (08:45→21:01)
[2022-12-03] MEDS: Metoprolol Tartrate 25 MG TABLET PO ×2 (08:45→21:02)
[2022-12-03] MEDS: Fenofibrate 160 MG TABLET PO (08:45)
[2022-12-03] MEDS: Carbidopa/Levodopa 25/100 TABLET 1 TAB PO ×2 (08:46→21:02)
--- NOTE | 2022-12-03 09:50 | P.PNPSI_ITS ---
Subjective Subjective Reason For Visit: SI Diagnostics Vital Signs (24Hr): Vital Signs - 24 hr 12/02/22 19:50 12/03/22 06:00 Temperature 97.4 F 97.6 F Pulse Rate 90 82 Respiratory Rate 18 Blood Pressure 124/66 131/74 Pulse Oximetry 99 Oxygen Delivery Method Room Air BMI result Body Mass Index 22.6 Labs 11/26/22 18:22 11/28/22 07:25 Medications Medications Current Medications Acetaminophen (Acetaminophen 325 Mg Tablet) 650 mg PO Q6H PRN PRN Reason: Headache/Pain Mild Scale (1-3) Al Hydroxide/Mg Hydroxide (Magnesium Hydrox/Alum Hydrox 30 Ml Oral.Susp) 30 ml PO Q6H PRN PRN Reason: Heartburn/Nausea Benztropine Mesylate (Benztropine Mesylate 0.5 Mg Tablet) 0.5 mg PO BID [facility] Last Admin: 12/03/22 08:45 Dose: 0.5 mg Carbidopa/Levodopa (Carbidopa/Levodopa 25/100 Tablet) 1 tab PO BID [facility] Last Admin: 12/03/22 08:46 Dose: 1 tab Fenofibrate (Fenofibrate 160 Mg Tablet) 160 mg PO DAILY [facility] Last Admin: 12/03/22 08:45 Dose: 160 mg Hydroxyzine HCl (Hydroxyzine Hcl 25 Mg Tablet) 25 mg PO Q6H PRN PRN Reason: Anxiety Magnesium Hydroxide (Milk Of Magnesia 30 Ml Oral.Susp) 30 ml PO DAILY PRN PRN Reason: Constipation Metoprolol Tartrate (Metoprolol Tartrate 25 Mg Tablet) 25 mg PO BID [facility]; Protocol Last Admin: 12/03/22 08:45 Dose: 25 mg Quetiapine Fumarate (Quetiapine Fumarate 100 Mg Tablet) 100 mg PO BEDTIME PRN PRN Reason: insomnia Risperidone (Risperidone 1 Mg Tablet) 1 mg PO BID [facility] Last Admin: 12/03/22 08:45 Dose: 1 mg Trazodone HCl (Trazodone Hcl 50 Mg Tablet) 50 mg PO BEDTIME MRX1 PRN PRN Reason: Insomnia Allergies Allergies Allergy/AdvReac Type Severity Reaction Status Date / Time No Known Allergies Allergy Verified 11/26/22 18:40 Assessment & Plan Assessment & Plan (1) Schizoaffective disorder: Qualifiers: Schizoaffective disorder type: bipolar Qualified Code(s): F25.0 - Schizoaffective disorder, bipolar type Status: Acute Code(s): F25.9 - Schizoaffective disorder, unspecified Plan Melia is a 67-year-old white, , unemployed, mother of 2 daughters, 1 surviving.? Patient has history of schizophrenia however no hospitalizations for the last 20 years. This is her 1st [facility] psychiatric admission and 2nd psychiatric hospitalization, the 1st 1 was about 20 years ago.? The 120 years ago was because of psychotic symptoms, paranoid ideations and delusions.? She could not give much reliable history for what is been happening in between however she is seen and treated at [facility] and previously had been on psychotropics including Trilafon up to 4 mg, Zyprexa up to 10 mg but she states that they were discontinued and she may have been on something else which she cannot remember the name nor were there any bottles in her belongings.? According to her adult daughter she has been showing signs of deterioration since March.? This may have been triggered by the of 1 of her sisters.? She has been more irritable, reactive, at times having trouble sleeping.? What led to coming to the emergency room for was that she may have been engaged in an argument with her male roommate and then she became quite upset and that picked up a knife, threatening to harm herself and also telling her roommate to kill himself (she did not threaten roommate).? IMpression: In conclusion Melia meets criteria for hospital level of care for safety and stabilization. I tried contacting [facility] to see if any new medications were initiated but they did not have any and she states that she get some of her medications through mail order pharmacy. I will put her on low-dose Risperdal 1 mg until we can talk to her prescriber at [facility] on Tuesday. Contacts to be made with her daughter who appears to have a good sense about how Melia has been recently. She will meet with her treatment team on 11/30. I discussed initiating Risperdal and she is open to it. Side effects were also discussed. Hospital course: 11/30 Patient reports that she is doing okay. She said that today she is really not so worried she will be locked up for not having gone to the checkout operator. Staff reports that patient complained of auditory hallucinations keeping her from sleeping last night however on inquiry, patient says she really does not have does not hear voices; will need to further clarify. -Regarding incident prior to coming to the hospital. She said she was all upset for a few days because of her worries about being locked up due to her foot and that is why she thought of killing herself. She no longer thinks this. -She does not know why she told her roommate to kill himself, other than she was upset in general; reiterates that she no longer thinks this. -left messages with her outpatient provider NELY Noguera. Patient agrees to continue with Risperdal at increased dose for now 12/01 continue current treatment plan 12/02 patient agrees with plan for Risperdal and Seroquel as a backup for insomnia. Patient denies AVH; denies paranoid thinking however remains internally preoccupied and anxious. Fearful about leaving -program writer also discussed transition from amlodipine to metoprolol with which patient agrees Sql Ssis Developer discussed case with patient's outpatient provider, NELY Noguera who reports that patient has overall been stable in the community having been on perphenazine for quite a while (though provider not when it was 1st started); reports that patient had a distant psychotic episode in her 40s but nothing since until February 2022 when patient sister and she started isolating from the family, having lots of somatic symptom complaints, not sleeping and up all night pacing the halls. Seroquel was started at bedtime for insomnia. Over the next few months patient seem to developed parkinsonian symptoms ostensibly from perphenazine and dose was lowered. Patient was supposed to be tapered off perphenazine however provider found out that patient was still taking it this past August and around that time patient stop taking it, the remained on Seroquel at bedtime. Provider agrees that perhaps coming off perphenazine was the trigger for this recent emerging of manic/psychotic symptoms. She agrees with having patient continue Risperdal for now since patient seems to be sleeping and psychosis resolved. -seems that patient has psychotic illness, schizoaffective disorder with hypomanic episodes; although patient does not have overt psychotic symptoms there likely present at a low level that only clearly produces itself during times of stress but is not absent and has caused some limitations on patient's lifetime functioning. Risperdal less likely to cause parkinsonian is than perphenazine; this was discussed and patient agrees to continue with treatment plan Plan: CV Q 15 minute checks Continue Risperdal 1 mg b.i.d..; Add Seroquel 100 mg q.h.s. p.r.n. for continued insomnia Continue trazodone 50 mg q.h.s. p.r.n. for insomnia Time Spent With Patient Time: Total time managing care of this patient today ____ minutes.
--- NOTE | 2022-12-03 12:59 | HO.PSYCHPN ---
Subjective Subjective Date of Service: 12/03/22 Reason For Visit: SI Interim History: elderly female seen midday in her bed, awake and alert. states she is doing well and has no complaints or requests for MD. mood all right. feeling safe. Mental Status Exam Mental Status Exam Narrative: Pt is alert and oriented; behavior is anxious but cooperative, friendly and calm; patient is not in distress; dressed in hospital attire, disheveled; mood is described as all right and affect congruent, constricted; eye contact appropriate; Speech is normal rate, volume and prosody and not pressured; no psychomotor agitation/retardation present; thought process is goal oriented; Thought content is on treatment and discharge; feeling safe, no SI/HI/AVH expressed. Patients insight and judgment fair Diagnostics Vital Signs (24Hr): Vital Signs - 24 hr 12/02/22 19:50 12/03/22 06:00 Temperature 97.4 F 97.6 F Pulse Rate 90 82 Respiratory Rate 18 Blood Pressure 124/66 131/74 Pulse Oximetry 99 Oxygen Delivery Method Room Air BMI result Body Mass Index 22.6 Labs 11/26/22 18:22 11/28/22 07:25 Medications Medications Current Medications Acetaminophen (Acetaminophen 325 Mg Tablet) 650 mg PO Q6H PRN PRN Reason: Headache/Pain Mild Scale (1-3) Al Hydroxide/Mg Hydroxide (Magnesium Hydrox/Alum Hydrox 30 Ml Oral.Susp) 30 ml PO Q6H PRN PRN Reason: Heartburn/Nausea Benztropine Mesylate (Benztropine Mesylate 0.5 Mg Tablet) 0.5 mg PO BID [facility] Last Admin: 12/03/22 08:45 Dose: 0.5 mg Carbidopa/Levodopa (Carbidopa/Levodopa 25/100 Tablet) 1 tab PO BID [facility] Last Admin: 12/03/22 08:46 Dose: 1 tab Fenofibrate (Fenofibrate 160 Mg Tablet) 160 mg PO DAILY [facility] Last Admin: 12/03/22 08:45 Dose: 160 mg Hydroxyzine HCl (Hydroxyzine Hcl 25 Mg Tablet) 25 mg PO Q6H PRN PRN Reason: Anxiety Magnesium Hydroxide (Milk Of Magnesia 30 Ml Oral.Susp) 30 ml PO DAILY PRN PRN Reason: Constipation Metoprolol Tartrate (Metoprolol Tartrate 25 Mg Tablet) 25 mg PO BID [facility]; Protocol Last Admin: 12/03/22 08:45 Dose: 25 mg Quetiapine Fumarate (Quetiapine Fumarate 100 Mg Tablet) 100 mg PO BEDTIME PRN PRN Reason: insomnia Risperidone (Risperidone 1 Mg Tablet) 1 mg PO BID [facility] Last Admin: 12/03/22 08:45 Dose: 1 mg Trazodone HCl (Trazodone Hcl 50 Mg Tablet) 50 mg PO BEDTIME MRX1 PRN PRN Reason: Insomnia Allergies Allergies Allergy/AdvReac Type Severity Reaction Status Date / Time No Known Allergies Allergy Verified 11/26/22 18:40 Assessment & Plan Assessment & Plan (1) Schizoaffective disorder: Qualifiers: Schizoaffective disorder type: bipolar Qualified Code(s): F25.0 - Schizoaffective disorder, bipolar type Status: Acute Code(s): F25.9 - Schizoaffective disorder, unspecified Plan Melia is a 67-year-old white, , unemployed, mother of 2 daughters, 1 surviving.? Patient has history of schizophrenia however no hospitalizations for the last 20 years. This is her 1st [facility] psychiatric admission and 2nd psychiatric hospitalization, the 1st 1 was about 20 years ago.? The 120 years ago was because of psychotic symptoms, paranoid ideations and delusions.? She could not give much reliable history for what is been happening in between however she is seen and treated at 0 and previously had been on psychotropics including Trilafon up to 4 mg, Zyprexa up to 10 mg but she states that they were discontinued and she may have been on something else which she cannot remember the name nor were there any bottles in her belongings.? According to her adult daughter she has been showing signs of deterioration since March.? This may have been triggered by the of 1 of her sisters.? She has been more irritable, reactive, at times having trouble sleeping.? What led to coming to the emergency room for was that she may have been engaged in an argument with her male roommate and then she became quite upset and that picked up a knife, threatening to harm herself and also telling her roommate to kill himself (she did not threaten roommate).? IMpression: In conclusion Melia meets criteria for hospital level of care for safety and stabilization. I tried contacting [facility] to see if any new medications were initiated but they did not have any and she states that she get some of her medications through mail order pharmacy. I will put her on low-dose Risperdal 1 mg until we can talk to her prescriber at [facility] on Tuesday. Contacts to be made with her daughter who appears to have a good sense about how Melia has been recently. She will meet with her treatment team on 11/30. I discussed initiating Risperdal and she is open to it. Side effects were also discussed. Hospital course: 11/30 Patient reports that she is doing okay. She said that today she is really not so worried she will be locked up for not having gone to the patient escort. Staff reports that patient complained of auditory hallucinations keeping her from sleeping last night however on inquiry, patient says she really does not have does not hear voices; will need to further clarify. -Regarding incident prior to coming to the hospital. She said she was all upset for a few days because of her worries about being locked up due to her foot and that is why she thought of killing herself. She no longer thinks this. -She does not know why she told her roommate to kill himself, other than she was upset in general; reiterates that she no longer thinks this. -left messages with her outpatient provider NELY Noguera. Patient agrees to continue with Risperdal at increased dose for now 12/01 continue current treatment plan 12/02 patient agrees with plan for Risperdal and Seroquel as a backup for insomnia. Patient denies AVH; denies paranoid thinking however remains internally preoccupied and anxious. Fearful about leaving -food writer also discussed transition from amlodipine to metoprolol with which patient agrees Conductor And Engineer discussed case with patient's outpatient provider, NELY Noguera who reports that patient has overall been stable in the community having been on perphenazine for quite a while (though provider not when it was 1st started); reports that patient had a distant psychotic episode in her 40s but nothing since until February 2022 when patient sister and she started isolating from the family, having lots of somatic symptom complaints, not sleeping and up all night pacing the halls. Seroquel was started at bedtime for insomnia. Over the next few months patient seem to developed parkinsonian symptoms ostensibly from perphenazine and dose was lowered. Patient was supposed to be tapered off perphenazine however provider found out that patient was still taking it this past August and around that time patient stop taking it, the remained on Seroquel at bedtime. Provider agrees that perhaps coming off perphenazine was the trigger for this recent emerging of manic/psychotic symptoms. She agrees with having patient continue Risperdal for now since patient seems to be sleeping and psychosis resolved. -seems that patient has psychotic illness, schizoaffective disorder with hypomanic episodes; although patient does not have overt psychotic symptoms there likely present at a low level that only clearly produces itself during times of stress but is not absent and has caused some limitations on patient's lifetime functioning. Risperdal less likely to cause parkinsonian is than perphenazine; this was discussed and patient agrees to continue with treatment plan 12/03: stable, improved from admission. continue current mgmt. Plan: CV Q 15 minute checks Continue Risperdal 1 mg b.i.d..; Add Seroquel 100 mg q.h.s. p.r.n. for continued insomnia Continue trazodone 50 mg q.h.s. p.r.n. for insomnia Reason for continued inpatient stay Substantial Risk for: inability to function and rapid decompensation Time Spent With Patient Time: Total time managing care of this patient today ____ minutes.
[2022-12-03 17:30] VITALS: BP 139/87; PULSE 79; TEMP 36
[2022-12-04 08:00] VITALS: BP 119/73; PULSE 83; RESP 16; TEMP 36.5; O2SAT 97
[2022-12-04] MEDS: Benztropine Mesylate 0.5 MG TABLET PO ×2 (08:47→20:59)
[2022-12-04] MEDS: Metoprolol Tartrate 25 MG TABLET PO ×2 (08:47→20:59)
[2022-12-04] MEDS: risperiDONE 1 MG TABLET PO ×2 (08:47→20:59)
[2022-12-04] MEDS: Fenofibrate 160 MG TABLET PO (08:47)
[2022-12-04] MEDS: Carbidopa/Levodopa 25/100 TABLET 1 TAB PO ×2 (08:47→20:59)
--- NOTE | 2022-12-04 08:48 | HO.PSYCHPN ---
Subjective Subjective Date of Service: 12/04/22 Reason For Visit: SI Interim History: Pt seen, discussed with team. Plan of care reviewed. Pt denies issues of concern. Visable in milieu and resting much of the time. Reports meds are without SE and she is sleeping and eating adequately Medication Compliance: Yes Side effects from medications: No Attending Groups: Intermittent Review of Systems Acute medical concerns: No Medical Review of Systems: unchanged Mental Status Exam Mental Status Exam Patient Appearance: Fatigued Patient Orientation: Person, Place, Time and Situation Level of Consciousness: Alert Patient Behavior: Talkative and Good Eye Contact Mood Description: Anxious Affect Description: Constricted Ability to Follow Directions: Good Speech Pattern: Spontaneous Speech Judgement: Fair Diagnostics Vital Signs (24Hr): Vital Signs - 24 hr 12/03/22 17:30 Temperature 96.8 F Pulse Rate 79 Blood Pressure 139/87 BMI result Body Mass Index 22.6 Labs 11/26/22 18:22 11/28/22 07:25 Medications Medications Current Medications Acetaminophen (Acetaminophen 325 Mg Tablet) 650 mg PO Q6H PRN PRN Reason: Headache/Pain Mild Scale (1-3) Al Hydroxide/Mg Hydroxide (Magnesium Hydrox/Alum Hydrox 30 Ml Oral.Susp) 30 ml PO Q6H PRN PRN Reason: Heartburn/Nausea Benztropine Mesylate (Benztropine Mesylate 0.5 Mg Tablet) 0.5 mg PO BID [facility] Last Admin: 12/03/22 21:01 Dose: 0.5 mg Carbidopa/Levodopa (Carbidopa/Levodopa 25/100 Tablet) 1 tab PO BID [facility] Last Admin: 12/03/22 21:02 Dose: 1 tab Fenofibrate (Fenofibrate 160 Mg Tablet) 160 mg PO DAILY [facility] Last Admin: 12/03/22 08:45 Dose: 160 mg Hydroxyzine HCl (Hydroxyzine Hcl 25 Mg Tablet) 25 mg PO Q6H PRN PRN Reason: Anxiety Magnesium Hydroxide (Milk Of Magnesia 30 Ml Oral.Susp) 30 ml PO DAILY PRN PRN Reason: Constipation Metoprolol Tartrate (Metoprolol Tartrate 25 Mg Tablet) 25 mg PO BID [facility]; Protocol Last Admin: 12/03/22 21:02 Dose: 25 mg Quetiapine Fumarate (Quetiapine Fumarate 100 Mg Tablet) 100 mg PO BEDTIME PRN PRN Reason: insomnia Risperidone (Risperidone 1 Mg Tablet) 1 mg PO BID [facility] Last Admin: 12/03/22 21:01 Dose: 1 mg Trazodone HCl (Trazodone Hcl 50 Mg Tablet) 50 mg PO BEDTIME MRX1 PRN PRN Reason: Insomnia Allergies Allergies Allergy/AdvReac Type Severity Reaction Status Date / Time No Known Allergies Allergy Verified 11/26/22 18:40 Assessment & Plan Assessment & Plan (1) Schizoaffective disorder: Qualifiers: Schizoaffective disorder type: bipolar Qualified Code(s): F25.0 - Schizoaffective disorder, bipolar type Status: Acute Code(s): F25.9 - Schizoaffective disorder, unspecified Plan 12/04 Continue current treatment plan and regime. Reason for continued inpatient stay Substantial Risk for: rapid decompensation Time Spent With Patient Time: Total time managing care of this patient today ____ minutes.
[2022-12-04 16:28] VITALS: BP 128/72; PULSE 75; TEMP 36.4; O2SAT 97
--- NOTE | 2022-12-05 05:55 | HO.PSYCHPN ---
Subjective Subjective Date of Service: 12/05/22 Reason For Visit: SI Interim History: Reviewed plan of care with team. Pt visable in milieu and with peers Reports sleep and appetite are fair, without need for intervention at this time Medication Compliance: Yes Side effects from medications: No Attending Groups: Intermittent Review of Systems Acute medical concerns: No Medical Review of Systems: unchanged Mental Status Exam Mental Status Exam Patient Appearance: Fatigued Patient Orientation: Person, Place, Time and Situation Level of Consciousness: Alert Patient Behavior: Talkative and Good Eye Contact Mood Description: Anxious Affect Description: Constricted Ability to Follow Directions: Good Speech Pattern: Spontaneous Speech Judgement: Fair Diagnostics Vital Signs (24Hr): Vital Signs - 24 hr 12/04/22 08:00 12/04/22 16:28 Temperature 97.7 F 97.5 F Pulse Rate 83 75 Respiratory Rate 16 Blood Pressure 119/73 128/72 Pulse Oximetry 97 97 Oxygen Delivery Method Room Air Room Air BMI result Body Mass Index 22.6 Labs 11/26/22 18:22 11/28/22 07:25 Medications Medications Current Medications Acetaminophen (Acetaminophen 325 Mg Tablet) 650 mg PO Q6H PRN PRN Reason: Headache/Pain Mild Scale (1-3) Al Hydroxide/Mg Hydroxide (Magnesium Hydrox/Alum Hydrox 30 Ml Oral.Susp) 30 ml PO Q6H PRN PRN Reason: Heartburn/Nausea Benztropine Mesylate (Benztropine Mesylate 0.5 Mg Tablet) 0.5 mg PO BID [facility] Last Admin: 12/04/22 20:59 Dose: 0.5 mg Carbidopa/Levodopa (Carbidopa/Levodopa 25/100 Tablet) 1 tab PO BID [facility] Last Admin: 12/04/22 20:59 Dose: 1 tab Fenofibrate (Fenofibrate 160 Mg Tablet) 160 mg PO DAILY [facility] Last Admin: 12/04/22 08:47 Dose: 160 mg Hydroxyzine HCl (Hydroxyzine Hcl 25 Mg Tablet) 25 mg PO Q6H PRN PRN Reason: Anxiety Magnesium Hydroxide (Milk Of Magnesia 30 Ml Oral.Susp) 30 ml PO DAILY PRN PRN Reason: Constipation Metoprolol Tartrate (Metoprolol Tartrate 25 Mg Tablet) 25 mg PO BID [facility]; Protocol Last Admin: 12/04/22 20:59 Dose: 25 mg Quetiapine Fumarate (Quetiapine Fumarate 100 Mg Tablet) 100 mg PO BEDTIME PRN PRN Reason: insomnia Risperidone (Risperidone 1 Mg Tablet) 1 mg PO BID [facility] Last Admin: 12/04/22 20:59 Dose: 1 mg Trazodone HCl (Trazodone Hcl 50 Mg Tablet) 50 mg PO BEDTIME MRX1 PRN PRN Reason: Insomnia Allergies Allergies Allergy/AdvReac Type Severity Reaction Status Date / Time No Known Allergies Allergy Verified 11/26/22 18:40 Assessment & Plan Assessment & Plan (1) Schizoaffective disorder: Qualifiers: Schizoaffective disorder type: bipolar Qualified Code(s): F25.0 - Schizoaffective disorder, bipolar type Status: Acute Code(s): F25.9 - Schizoaffective disorder, unspecified Plan 12/05/22 Continue regime and plan of care. Reason for continued inpatient stay Substantial Risk for: rapid decompensation Time Spent With Patient Time: Total time managing care of this patient today ____ minutes.
[2022-12-05] MEDS: Benztropine Mesylate 0.5 MG TABLET PO ×2 (08:32→20:00)
[2022-12-05] MEDS: risperiDONE 1 MG TABLET PO ×2 (08:32→20:01)
[2022-12-05] MEDS: Metoprolol Tartrate 25 MG TABLET PO ×2 (08:32→20:00)
[2022-12-05] MEDS: Fenofibrate 160 MG TABLET PO (08:32)
[2022-12-05] MEDS: Carbidopa/Levodopa 25/100 TABLET 1 TAB PO ×2 (08:32→20:00)
[2022-12-05 08:51] VITALS: BP 119/68; PULSE 68; RESP 14; TEMP 36.4; O2SAT 97
[2022-12-05 18:00] VITALS: BP 134/68; PULSE 83; RESP 16; TEMP 36; O2SAT 97
[2022-12-06 09:00] VITALS: BP 136/70; PULSE 78; RESP 16; TEMP 36.4; O2SAT 98
[2022-12-06] MEDS: Benztropine Mesylate 0.5 MG TABLET PO ×2 (09:06→21:05)
[2022-12-06] MEDS: Carbidopa/Levodopa 25/100 TABLET 1 TAB PO ×2 (09:06→21:05)
[2022-12-06] MEDS: Fenofibrate 160 MG TABLET PO (09:06)
[2022-12-06] MEDS: Metoprolol Tartrate 25 MG TABLET PO ×2 (09:07→21:04)
[2022-12-06] MEDS: risperiDONE 1 MG TABLET PO (09:07)
--- NOTE | 2022-12-06 16:02 | HO.PSYCHPN ---
Subjective Subjective Date of Service: 12/06/22 Reason For Visit: SI Interim History: met with patient; discussed with team pt shared concern that the social security office has her incorrect phone number and thus she's at risk for being locked up. Pt says she had this worry for a while, few months...she seemed to respond to reality testing. Pt reports trouble sleeping and agreed to schedule Seroquel for a few nights to help. Also agrees to raising rispedal Mental Status Exam Mental Status Exam Narrative: Pt is alert and oriented; behavior is anxious but cooperative, friendly and calm; patient is not in distress; dressed in hospital attire, unkempt; mood is described as okay and affect congruent, constricted; eye contact appropriate; Speech is normal rate, volume and prosody and not pressured; no psychomotor agitation/retardation present; thought process is goal oriented; Thought content is on some chronic paranoid worries; and discharge; can discuss pertinent/relevant; denies any SI/HI. Denied AVH, though intermittently seems to be responding to internal stimuli. Patients insight and judgment fair Diagnostics Vital Signs (24Hr): Vital Signs - 24 hr 12/05/22 18:00 12/06/22 09:00 Temperature 96.8 F 97.6 F Pulse Rate 83 78 Respiratory Rate 16 16 Blood Pressure 134/68 136/70 Pulse Oximetry 97 98 Oxygen Delivery Method Room Air Room Air BMI result Body Mass Index 22.6 Labs 11/26/22 18:22 11/28/22 07:25 Medications Medications Current Medications Acetaminophen (Acetaminophen 325 Mg Tablet) 650 mg PO Q6H PRN PRN Reason: Headache/Pain Mild Scale (1-3) Al Hydroxide/Mg Hydroxide (Magnesium Hydrox/Alum Hydrox 30 Ml Oral.Susp) 30 ml PO Q6H PRN PRN Reason: Heartburn/Nausea Benztropine Mesylate (Benztropine Mesylate 0.5 Mg Tablet) 0.5 mg PO BID [facility] Last Admin: 12/06/22 09:06 Dose: 0.5 mg Carbidopa/Levodopa (Carbidopa/Levodopa 25/100 Tablet) 1 tab PO BID [facility] Last Admin: 12/06/22 09:06 Dose: 1 tab Fenofibrate (Fenofibrate 160 Mg Tablet) 160 mg PO DAILY [facility] Last Admin: 12/06/22 09:06 Dose: 160 mg Hydroxyzine HCl (Hydroxyzine Hcl 25 Mg Tablet) 25 mg PO Q6H PRN PRN Reason: Anxiety Magnesium Hydroxide (Milk Of Magnesia 30 Ml Oral.Susp) 30 ml PO DAILY PRN PRN Reason: Constipation Metoprolol Tartrate (Metoprolol Tartrate 25 Mg Tablet) 25 mg PO BID [facility]; Protocol Last Admin: 12/06/22 09:07 Dose: 25 mg Quetiapine Fumarate (Quetiapine Fumarate 100 Mg Tablet) 100 mg PO BEDTIME PRN PRN Reason: insomnia Quetiapine Fumarate (Quetiapine Fumarate 50 Mg Tablet) 50 mg PO BEDTIME [facility] Risperidone (Risperidone 1 Mg Tablet) 1 mg PO DAILY [facility] Risperidone (Risperidone 2 Mg Tablet) 2 mg PO BEDTIME [facility] Trazodone HCl (Trazodone Hcl 50 Mg Tablet) 50 mg PO BEDTIME MRX1 PRN PRN Reason: Insomnia Allergies Allergies Allergy/AdvReac Type Severity Reaction Status Date / Time No Known Allergies Allergy Verified 11/26/22 18:40 Assessment & Plan Assessment & Plan (1) Schizoaffective disorder: Qualifiers: Schizoaffective disorder type: bipolar Qualified Code(s): F25.0 - Schizoaffective disorder, bipolar type Status: Acute Code(s): F25.9 - Schizoaffective disorder, unspecified Plan 12/05/22 Continue regime and plan of care. says previous delusional worry is resolved (does not think she is going to be arrested for not seeing the oil filters inspector) 12/06 increasing risperdal to 2mg qhs continue risperdal 1mg daily schedule seroquel 50mg qhs Patient educated on: diagnosis and medication risk/benefits Informed Consent: understands and further education needed Reason for continued inpatient stay Substantial Risk for: stable for discharge Time Spent With Patient Time: Total time managing care of this patient today ____ minutes.
[2022-12-06 21:02] VITALS: BP 139/76; PULSE 68; TEMP 36.3
[2022-12-06] MEDS: risperiDONE 2 MG TABLET PO (21:05)
[2022-12-06] MEDS: QUEtiapine Fumarate 50 MG TABLET PO (21:05)
[2022-12-07 09:32] VITALS: BP 110/59; PULSE 84; RESP 16; TEMP 36.6; O2SAT 100
[2022-12-07] MEDS: Metoprolol Tartrate 25 MG TABLET PO ×2 (09:35→20:22)
[2022-12-07] MEDS: Benztropine Mesylate 0.5 MG TABLET PO ×2 (09:35→20:22)
[2022-12-07] MEDS: Carbidopa/Levodopa 25/100 TABLET 1 TAB PO ×2 (09:35→20:22)
[2022-12-07] MEDS: Fenofibrate 160 MG TABLET PO (09:35)
[2022-12-07] MEDS: risperiDONE 1 MG TABLET PO (09:36)
[2022-12-07 20:16] VITALS: BP 137/63; PULSE 80; TEMP 36.1
[2022-12-07] MEDS: risperiDONE 2 MG TABLET PO (20:22)
[2022-12-07] MEDS: QUEtiapine Fumarate 50 MG TABLET PO (20:22)
--- NOTE | 2022-12-08 00:31 | HO.PSYCHPN ---
Subjective Subjective Date of Service: 12/07/22 Reason For Visit: SI Interim History: met with pt; discussed with team/ patient seen on 12/07 Patient remains stable. Staff noted that she was continually peaking out of her room, looking around is if concerned however she denies any concerns. Later in the day patient asked staff if police can come here; later on she asked if staff has heard from the police... Patient responded to reality testing by saying Oh it is just a thought I have sometimes... and that she can usually talk herself out of being worried about it. Patient reports she slept well last night. Staff notes patient is eating and drinking though not much attention to ADLs. Mental Status Exam Mental Status Exam Narrative: Pt is alert and oriented; behavior is anxious but cooperative, friendly and calm; patient is not in distress; dressed in hospital attire, unkempt; mood is described as okay and affect congruent, constricted; eye contact appropriate; Speech is normal rate, volume and prosody and not pressured; no psychomotor agitation/retardation present; thought process is goal oriented; Thought content is on some chronic paranoid worries; and discharge; can discuss pertinent/relevant; denies any SI/HI. Denied AVH, though intermittently seems to be responding to internal stimuli. Patients insight and judgment fair Diagnostics Vital Signs (24Hr): Vital Signs - 24 hr 12/07/22 09:32 12/07/22 20:16 Temperature 97.9 F 97 F Pulse Rate 84 80 Respiratory Rate 16 Blood Pressure 110/59 L 137/63 Pulse Oximetry 100 Oxygen Delivery Method Room Air BMI result Body Mass Index 22.6 Labs 11/26/22 18:22 11/28/22 07:25 Medications Medications Current Medications Acetaminophen (Acetaminophen 325 Mg Tablet) 650 mg PO Q6H PRN PRN Reason: Headache/Pain Mild Scale (1-3) Al Hydroxide/Mg Hydroxide (Magnesium Hydrox/Alum Hydrox 30 Ml Oral.Susp) 30 ml PO Q6H PRN PRN Reason: Heartburn/Nausea Benztropine Mesylate (Benztropine Mesylate 0.5 Mg Tablet) 0.5 mg PO BID [facility] Last Admin: 12/07/22 20:22 Dose: 0.5 mg Carbidopa/Levodopa (Carbidopa/Levodopa 25/100 Tablet) 1 tab PO BID [facility] Last Admin: 12/07/22 20:22 Dose: 1 tab Fenofibrate (Fenofibrate 160 Mg Tablet) 160 mg PO DAILY [facility] Last Admin: 12/07/22 09:35 Dose: 160 mg Hydroxyzine HCl (Hydroxyzine Hcl 25 Mg Tablet) 25 mg PO Q6H PRN PRN Reason: Anxiety Magnesium Hydroxide (Milk Of Magnesia 30 Ml Oral.Susp) 30 ml PO DAILY PRN PRN Reason: Constipation Metoprolol Tartrate (Metoprolol Tartrate 25 Mg Tablet) 25 mg PO BID [facility]; Protocol Last Admin: 12/07/22 20:22 Dose: 25 mg Quetiapine Fumarate (Quetiapine Fumarate 100 Mg Tablet) 100 mg PO BEDTIME PRN PRN Reason: insomnia Quetiapine Fumarate (Quetiapine Fumarate 50 Mg Tablet) 50 mg PO BEDTIME [facility] Last Admin: 12/07/22 20:22 Dose: 50 mg Risperidone (Risperidone 1 Mg Tablet) 1 mg PO DAILY [facility] Last Admin: 12/07/22 09:36 Dose: 1 mg Risperidone (Risperidone 2 Mg Tablet) 2 mg PO BEDTIME [facility] Last Admin: 12/07/22 20:22 Dose: 2 mg Trazodone HCl (Trazodone Hcl 50 Mg Tablet) 50 mg PO BEDTIME MRX1 PRN PRN Reason: Insomnia Allergies Allergies Allergy/AdvReac Type Severity Reaction Status Date / Time No Known Allergies Allergy Verified 11/26/22 18:40 Assessment & Plan Assessment & Plan (1) Schizoaffective disorder: Qualifiers: Schizoaffective disorder type: bipolar Qualified Code(s): F25.0 - Schizoaffective disorder, bipolar type Status: Acute Code(s): F25.9 - Schizoaffective disorder, unspecified Plan Melia is a 67-year-old white, , unemployed, mother of 2 daughters, 1 surviving.? Patient has history of schizophrenia however no hospitalizations for the last 20 years. This is her 1st [facility] psychiatric admission and 2nd psychiatric hospitalization, the 1st 1 was about 20 years ago.? The 120 years ago was because of psychotic symptoms, paranoid ideations and delusions.? She could not give much reliable history for what is been happening in between however she is seen and treated at 0 and previously had been on psychotropics including Trilafon up to 4 mg, Zyprexa up to 10 mg but she states that they were discontinued and she may have been on something else which she cannot remember the name nor were there any bottles in her belongings.? According to her adult daughter she has been showing signs of deterioration since March.? This may have been triggered by the of 1 of her sisters.? She has been more irritable, reactive, at times having trouble sleeping.? What led to coming to the emergency room for was that she may have been engaged in an argument with her male roommate and then she became quite upset and that picked up a knife, threatening to harm herself and also telling her roommate to kill himself (she did not threaten roommate).? IMpression: In conclusion Melia meets criteria for hospital level of care for safety and stabilization. I tried contacting [facility] to see if any new medications were initiated but they did not have any and she states that she get some of her medications through mail order pharmacy. I will put her on low-dose Risperdal 1 mg until we can talk to her prescriber at [facility] on Tuesday. Contacts to be made with her daughter who appears to have a good sense about how Melia has been recently. She will meet with her treatment team on 11/30. I discussed initiating Risperdal and she is open to it. Side effects were also discussed. Hospital course: 11/30 Patient reports that she is doing okay. 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 Staff reports that patient complained of auditory hallucinations keeping her from sleeping last night however on inquiry, patient says she really does not have does not hear voices; will need to further clarify. -Regarding incident prior to coming to the hospital. She said she was all upset for a few days because of her worries about being locked up due to her foot and that is why she thought of killing herself. She no longer thinks this. -She does not know why she told her roommate to kill himself, other than she was upset in general; reiterates that she no longer thinks this. -left messages with her outpatient provider NELY Noguera. Patient agrees to continue with Risperdal at increased dose for now 12/01 continue current treatment plan 12/02 patient agrees with plan for Risperdal and Seroquel as a backup for insomnia. Patient denies AVH; denies paranoid thinking however remains internally preoccupied and anxious. Fearful about leaving -va underwriter also discussed transition from amlodipine to metoprolol with which patient agrees Register Clerk discussed case with patient's outpatient provider, NELY Noguera who reports that patient has overall been stable in the community having been on perphenazine for quite a while (though provider not when it was 1st started); reports that patient had a distant psychotic episode in her 40s but nothing since until February 2022 when patient sister and she started isolating from the family, having lots of somatic symptom complaints, not sleeping and up all night pacing the halls. Seroquel was started at bedtime for insomnia. Over the next few months patient seem to developed parkinsonian symptoms ostensibly from perphenazine and dose was lowered. Patient was supposed to be tapered off perphenazine however provider found out that patient was still taking it this past August and around that time patient stop taking it, the remained on Seroquel at bedtime. Provider agrees that perhaps coming off perphenazine was the trigger for this recent emerging of manic/psychotic symptoms. She agrees with having patient continue Risperdal for now since patient seems to be sleeping and psychosis resolved. -seems that patient has psychotic illness, schizoaffective disorder with hypomanic episodes; although patient does not have overt psychotic symptoms there likely present at a low level that only clearly produces itself during times of stress but is not absent and has caused some limitations on patient's lifetime functioning. Risperdal less likely to cause parkinsonian is than perphenazine; this was discussed and patient agrees to continue with treatment plan 12/05/22 Continue regime and plan of care. Says previous delusional worry is resolved (does not think she is going to be arrested for not seeing the fruit or nut picker) 12/06 still paranoid behaviors, trouble sleeping increasing risperdal to 2mg qhs continue risperdal 1mg daily schedule seroquel 50mg qhs 12/07 intermittently expressing paranoid ideations, asking if police have been looking for her; she is able to respond to reality testing and the moment, saying she thinks it is her mind playing tricks on her, however the thoughts seem to reappear. But no SI and she remains with safe behavior and in good impulse control. Hesitate to go up any further on Risperdal since this dose could still continue to give increasing benefit and patient has history of parkinsonian another medication. -seems that patient has paranoid delusional thinking was kept at [facility] with perphenazine, though it negative symptoms remained; likely trauma of losing her sister triggered a worsening of symptoms; patient also then came off perphenazine due to parkinsonian symptoms which seems to have worsened it still. So far Risperdal seems to be moderately helpful. Plan: CV Q 15 minute checks Increase to 1 mg daily and 2 mg q.h.s. Scheduled Seroquel 50 mg q.h.s. for insomnia for few days Continue trazodone 50 mg q.h.s. p.r.n. for insomnia -va underwriter called left a couple of messages for daughter Patient educated on: diagnosis and medication risk/benefits Informed Consent: understands and further education needed Reason for continued inpatient stay Substantial Risk for: stable for discharge Time Spent With Patient Time: Total time managing care of this patient today ____ minutes.
[2022-12-08 08:20] VITALS: BP 127/69; PULSE 69; RESP 16; TEMP 36.6; O2SAT 99
[2022-12-08] MEDS: Benztropine Mesylate 0.5 MG TABLET PO ×2 (08:21→20:53)
[2022-12-08] MEDS: Carbidopa/Levodopa 25/100 TABLET 1 TAB PO ×2 (08:21→20:53)
[2022-12-08] MEDS: Fenofibrate 160 MG TABLET PO (08:21)
[2022-12-08] MEDS: Metoprolol Tartrate 25 MG TABLET PO ×2 (08:21→20:53)
[2022-12-08] MEDS: risperiDONE 1 MG TABLET PO (08:21)
--- NOTE | 2022-12-08 14:09 | HO.PSYCHPN ---
Subjective Subjective Date of Service: 12/08/22 Reason For Visit: SI Interim History: Met with patient; discussed with team Discussed again patient's he yesterday concern about whether the police were looking for her. She said this or similar thoughts have been going on for a couple months maybe. Again patient said she thinks she has figured it out that her mind is playing tricks on her. Patient asks for discharge tomorrow. Says she is returning to her home where she lives with her roommate. Mental Status Exam Mental Status Exam Narrative: Pt is alert and oriented; behavior is anxious but cooperative, friendly and calm; patient is not in distress; dressed in hospital attire, somewhat disheveled; mood is described as okay and affect congruent, constricted; eye contact appropriate; Speech is normal rate, volume and prosody and not pressured; no psychomotor agitation/retardation present; thought process is goal oriented; Thought content is on some chronic paranoid worries; and discharge; can discuss pertinent/relevant; denies any SI/HI. Denied AVH, though intermittently seems to be responding to internal stimuli. Patients insight and judgment impaired but adequate and at baseline Diagnostics Vital Signs (24Hr): Vital Signs - 24 hr 12/07/22 20:16 12/08/22 08:20 Temperature 97 F 97.9 F Pulse Rate 80 69 Respiratory Rate 16 Blood Pressure 137/63 127/69 Pulse Oximetry 99 Oxygen Delivery Method Room Air BMI result Body Mass Index 22.6 Labs 11/26/22 18:22 11/28/22 07:25 Medications Medications Current Medications Acetaminophen (Acetaminophen 325 Mg Tablet) 650 mg PO Q6H PRN PRN Reason: Headache/Pain Mild Scale (1-3) Al Hydroxide/Mg Hydroxide (Magnesium Hydrox/Alum Hydrox 30 Ml Oral.Susp) 30 ml PO Q6H PRN PRN Reason: Heartburn/Nausea Benztropine Mesylate (Benztropine Mesylate 0.5 Mg Tablet) 0.5 mg PO BID [facility] Last Admin: 12/08/22 08:21 Dose: 0.5 mg Carbidopa/Levodopa (Carbidopa/Levodopa 25/100 Tablet) 1 tab PO BID [facility] Last Admin: 12/08/22 08:21 Dose: 1 tab Fenofibrate (Fenofibrate 160 Mg Tablet) 160 mg PO DAILY [facility] Last Admin: 12/08/22 08:21 Dose: 160 mg Hydroxyzine HCl (Hydroxyzine Hcl 25 Mg Tablet) 25 mg PO Q6H PRN PRN Reason: Anxiety Magnesium Hydroxide (Milk Of Magnesia 30 Ml Oral.Susp) 30 ml PO DAILY PRN PRN Reason: Constipation Metoprolol Tartrate (Metoprolol Tartrate 25 Mg Tablet) 25 mg PO BID [facility]; Protocol Last Admin: 12/08/22 08:21 Dose: 25 mg Quetiapine Fumarate (Quetiapine Fumarate 100 Mg Tablet) 100 mg PO BEDTIME PRN PRN Reason: insomnia Quetiapine Fumarate (Quetiapine Fumarate 50 Mg Tablet) 50 mg PO BEDTIME [facility] Last Admin: 12/07/22 20:22 Dose: 50 mg Risperidone (Risperidone 1 Mg Tablet) 1 mg PO DAILY [facility] Last Admin: 12/08/22 08:21 Dose: 1 mg Risperidone (Risperidone 2 Mg Tablet) 2 mg PO BEDTIME [facility] Last Admin: 12/07/22 20:22 Dose: 2 mg Trazodone HCl (Trazodone Hcl 50 Mg Tablet) 50 mg PO BEDTIME MRX1 PRN PRN Reason: Insomnia Allergies Allergies Allergy/AdvReac Type Severity Reaction Status Date / Time No Known Allergies Allergy Verified 11/26/22 18:40 Assessment & Plan Assessment & Plan (1) Schizoaffective disorder: Qualifiers: Schizoaffective disorder type: bipolar Qualified Code(s): F25.0 - Schizoaffective disorder, bipolar type Status: Acute Code(s): F25.9 - Schizoaffective disorder, unspecified Plan Melia is a 67-year-old white, , unemployed, mother of 2 daughters, 1 surviving.? Patient has history of schizophrenia however no hospitalizations for the last 20 years. This is her 1st [facility] psychiatric admission and 2nd psychiatric hospitalization, the 1st 1 was about 20 years ago.? The 120 years ago was because of psychotic symptoms, paranoid ideations and delusions.? She could not give much reliable history for what is been happening in between however she is seen and treated at 0 and previously had been on psychotropics including Trilafon up to 4 mg, Zyprexa up to 10 mg but she states that they were discontinued and she may have been on something else which she cannot remember the name nor were there any bottles in her belongings.? According to her adult daughter she has been showing signs of deterioration since March.? This may have been triggered by the of 1 of her sisters.? She has been more irritable, reactive, at times having trouble sleeping.? What led to coming to the emergency room for was that she may have been engaged in an argument with her male roommate and then she became quite upset and that picked up a knife, threatening to harm herself and also telling her roommate to kill himself (she did not threaten roommate).? IMpression: In conclusion Melia meets criteria for hospital level of care for safety and stabilization. I tried contacting [facility] to see if any new medications were initiated but they did not have any and she states that she get some of her medications through mail order pharmacy. I will put her on low-dose Risperdal 1 mg until we can talk to her prescriber at [facility] on Tuesday. Contacts to be made with her daughter who appears to have a good sense about how Melia has been recently. She will meet with her treatment team on 11/30. I discussed initiating Risperdal and she is open to it. Side effects were also discussed. Hospital course: 11/30 Patient reports that she is doing okay. She said that today she is really not so worried she will be locked up for not having gone to the short haul driver. Staff reports that patient complained of auditory hallucinations keeping her from sleeping last night however on inquiry, patient says she really does not have does not hear voices; will need to further clarify. -Regarding incident prior to coming to the hospital. She said she was all upset for a few days because of her worries about being locked up due to her foot and that is why she thought of killing herself. She no longer thinks this. -She does not know why she told her roommate to kill himself, other than she was upset in general; reiterates that she no longer thinks this. -left messages with her outpatient provider NELY Noguera. Patient agrees to continue with Risperdal at increased dose for now 12/01 continue current treatment plan 12/02 patient agrees with plan for Risperdal and Seroquel as a backup for insomnia. Patient denies AVH; denies paranoid thinking however remains internally preoccupied and anxious. Fearful about leaving -script writer also discussed transition from amlodipine to metoprolol with which patient agrees Inventory Specialist discussed case with patient's outpatient provider, NELY Noguera who reports that patient has overall been stable in the community having been on perphenazine for quite a while (though provider not when it was 1st started); reports that patient had a distant psychotic episode in her 40s but nothing since until February 2022 when patient sister and she started isolating from the family, having lots of somatic symptom complaints, not sleeping and up all night pacing the halls. Seroquel was started at bedtime for insomnia. Over the next few months patient seem to developed parkinsonian symptoms ostensibly from perphenazine and dose was lowered. Patient was supposed to be tapered off perphenazine however provider found out that patient was still taking it this past August and around that time patient stop taking it, the remained on Seroquel at bedtime. Provider agrees that perhaps coming off perphenazine was the trigger for this recent emerging of manic/psychotic symptoms. She agrees with having patient continue Risperdal for now since patient seems to be sleeping and psychosis resolved. -seems that patient has psychotic illness, schizoaffective disorder with hypomanic episodes; although patient does not have overt psychotic symptoms there likely present at a low level that only clearly produces itself during times of stress but is not absent and has caused some limitations on patient's lifetime functioning. Risperdal less likely to cause parkinsonian is than perphenazine; this was discussed and patient agrees to continue with treatment plan 12/05/22 Continue regime and plan of care. Says previous delusional worry is resolved (does not think she is going to be arrested for not seeing the short haul driver) 12/06 still paranoid behaviors, trouble sleeping increasing risperdal to 2mg qhs continue risperdal 1mg daily schedule seroquel 50mg qhs 12/07 intermittently expressing paranoid ideations, asking if police have been looking for her; she is able to respond to reality testing and the moment, saying she thinks it is her mind playing tricks on her, however the thoughts seem to reappear. But no SI and she remains with safe behavior and in good impulse control. Hesitate to go up any further on Risperdal since this dose could still continue to give increasing benefit and patient has history of parkinsonian another medication. 9/13 remains stable, no change in presentation; continue treatment plan. Patient would like to return home tomorrow, feels safe and ready to go home. Does not think she will get dysregulated or have any suicidal thoughts again. Patient has outpatient provider who was attentive as well as supportive daughter. Patient is not in imminent risk for harm to self or others her request for discharge honored. -seems that patient has paranoid delusional thinking was kept at [facility] with perphenazine, though it negative symptoms remained; likely trauma of losing her sister triggered a worsening of symptoms; patient also then came off perphenazine due to parkinsonian symptoms which seems to have worsened it still. So far Risperdal seems to be moderately helpful. Plan: CV Q 15 minute checks Risperdal 1 mg daily and Risperdal 2 mg q.h.s. Scheduled Seroquel 50 mg q.h.s. for insomnia for few days Continue trazodone 50 mg q.h.s. p.r.n. for insomnia -script writer called left a couple of messages for daughter Patient educated on: diagnosis Informed Consent: understands and further education needed Reason for continued inpatient stay Substantial Risk for: stable for discharge Time Spent With Patient Time: Total time managing care of this patient today ____ minutes.
[2022-12-08 18:00] VITALS: BP 131/60; PULSE 81; TEMP 36.2; O2SAT 96
[2022-12-08] MEDS: risperiDONE 2 MG TABLET PO (20:53)
[2022-12-08] MEDS: QUEtiapine Fumarate 50 MG TABLET PO (20:53)
[2022-12-09 09:00] VITALS: BP 121/64; PULSE 91; RESP 16; TEMP 36.8; O2SAT 100
[2022-12-09] MEDS: Carbidopa/Levodopa 25/100 TABLET 1 TAB PO (09:02)
[2022-12-09] MEDS: risperiDONE 1 MG TABLET PO (09:02)
[2022-12-09] MEDS: Fenofibrate 160 MG TABLET PO (09:02)
[2022-12-09] MEDS: Benztropine Mesylate 0.5 MG TABLET PO (09:03)
[2022-12-09] MEDS: Metoprolol Tartrate 25 MG TABLET PO (09:03)
--- NOTE | 2022-12-09 09:41 | PM.PSYDC ---
DS: Providers Provider Date of Service: 12/09/22 Date of admission: 11/27/22 19:38 Date of discharge: 12/09/22 Primary care physician: Unknown Physician Attending physician on admission: Christel Mendoza Attending physician on discharge: Jourdan Martinez DS: Diagnosis Discharge Diagnosis (1) Schizoaffective disorder: Status: Acute DS: Medications Discharge Medications Home Medications: Home Medications Medication Instructions Recorded Confirmed alendronate 70 mg tablet 70 mg PO QWEEK 11/26/22 11/26/22 fenofibrate 160 mg tablet 160 mg PO DAILY 11/27/22 11/27/22 simvastatin 20 mg tablet 20 mg PO BEDTIME 11/27/22 11/27/22 Previous Rx's Medication Instructions Recorded benztropine 0.5 mg tablet 0.5 mg PO BID 30 days #60 tabs 12/08/22 carbidopa 25 mg-levodopa 100 mg 1 tab PO BID 30 days #60 tabs 12/08/22 tablet metoprolol tartrate 25 mg tablet 25 mg PO BID 30 days #60 tabs 12/08/22 quetiapine 50 mg tablet 50 mg PO BEDTIME 30 days #30 tabs 12/08/22 risperidone 1 mg tablet 1 mg PO DAILY 30 days #30 tabs 12/08/22 risperidone 2 mg tablet 2 mg PO BEDTIME 30 days #30 tabs 12/08/22 Mental Status Exam Mental Status Exam Narrative: Pt is alert and oriented; behavior is anxious but cooperative, friendly and calm; patient is not in distress; dressed in hospital attire, unkempt; mood is described as okay and affect congruent, constricted; eye contact appropriate; Speech is normal rate, volume and prosody and not pressured; no psychomotor agitation/retardation present; thought process is goal oriented; Thought content is on some chronic paranoid worries; and discharge; can discuss pertinent/relevant; denies any SI/HI. Denied AVH, though intermittently seems to be responding to internal stimuli. Patients insight and judgment impaired but adequate and at baseline Data Data Completed and Pending Completed studies during hospitalization [Text1]: 11/26/22 Unknown Urine clean catch - Urine cuadra top Urine Culture - Final DS: Summary Hospital Course Hospital Course: HPI: Melia is a 67-year-old white, , unemployed, mother of 2 daughters, 1 surviving.? Patient has history of schizophrenia however no hospitalizations for the last 20 years. This is her 1st [facility] psychiatric admission and 2nd psychiatric hospitalization, the 1st 1 was about 20 years ago.? The 120 years ago was because of psychotic symptoms, paranoid ideations and delusions.? She could not give much reliable history for what is been happening in between however she is seen and treated at 0 and previously had been on psychotropics including Trilafon up to 4 mg, Zyprexa up to 10 mg but she states that they were discontinued and she may have been on something else which she cannot remember the name nor were there any bottles in her belongings.? According to her adult daughter she has been showing signs of deterioration since March.? This may have been triggered by the of 1 of her sisters.? She has been more irritable, reactive, at times having trouble sleeping.? What led to coming to the emergency room for was that she may have been engaged in an argument with her male roommate and then she became quite upset and that picked up a knife, threatening to harm herself and also telling her roommate to kill himself (she did not threaten roommate).? Formulation: It seems likely that patient has had underlying, subclinical paranoid, delusional thinking that was kept at bay with perphenazine (though with some negative symptoms); a exacerbation leading to this admission was likely due to the trauma of losing her sister which triggered a worsening of symptoms; also contributory, at that time patient discontinued perphenazine due to parkinsonian symptoms, further adding to exacerbation of symptoms. Risperdal started this admission which seems to have be moderately helpful. Hospital course: 11/30 Patient reports that she is doing okay. She said that today she is really not so worried she will be locked up for not having gone to the shrink pit supervisor. Staff reports that patient complained of auditory hallucinations keeping her from sleeping last night however on inquiry, patient says she really does not have does not hear voices; will need to further clarify. -Regarding incident prior to coming to the hospital. She said she was all upset for a few days because of her worries about being locked up due to her foot and that is why she thought of killing herself. She no longer thinks this. -She does not know why she told her roommate to kill himself, other than she was upset in general; reiterates that she no longer thinks this. -left messages with her outpatient provider NELY Noguera. Patient agrees to continue with Risperdal at increased dose for now 12/01 continue current treatment plan 12/02 patient agrees with plan for Risperdal and Seroquel as a backup for insomnia. Patient denies AVH; denies paranoid thinking however remains internally preoccupied and anxious. Fearful about leaving -property underwriter also discussed transition from amlodipine to metoprolol with which patient agrees Tooth Inspector discussed case with patient's outpatient provider, NELY Noguera who reports that patient has overall been stable in the community having been on perphenazine for quite a while (though provider not when it was 1st started); reports that patient had a distant psychotic episode in her 40s but nothing since until February 2022 when patient sister and she started isolating from the family, having lots of somatic symptom complaints, not sleeping and up all night pacing the halls. Seroquel was started at bedtime for insomnia. Over the next few months patient seem to developed parkinsonian symptoms ostensibly from perphenazine and dose was lowered. Patient was supposed to be tapered off perphenazine however provider found out that patient was still taking it this past August and around that time patient stop taking it, the remained on Seroquel at bedtime. Provider agrees that perhaps coming off perphenazine was the trigger for this recent emerging of manic/psychotic symptoms. She agrees with having patient continue Risperdal for now since patient seems to be sleeping and psychosis resolved. -seems that patient has psychotic illness, schizoaffective disorder with hypomanic episodes; although patient does not have overt psychotic symptoms there likely present at a low level that only clearly produces itself during times of stress but is not absent and has caused some limitations on patient's lifetime functioning. Risperdal less likely to cause parkinsonian is than perphenazine; this was discussed and patient agrees to continue with treatment plan 12/05/22 Continue regime and plan of care. Says previous delusional worry is resolved (does not think she is going to be arrested for not seeing the shrink pit supervisor) 12/06 still paranoid behaviors, trouble sleeping increasing risperdal to 2mg qhs continue risperdal 1mg daily schedule seroquel 50mg qhs 12/07 intermittently expressing paranoid ideations, asking if police have been looking for her; she is able to respond to reality testing and the moment, saying she thinks it is her mind playing tricks on her, however the thoughts seem to reappear. But no SI and she remains with safe behavior and in good impulse control. Hesitate to go up any further on Risperdal since this dose could still continue to give increasing benefit and patient has history of parkinsonian another medication. 12/08 remains stable, no change in presentation; continue treatment plan. Patient would like to return home tomorrow, feels safe and ready to go home. Does not think she will get dysregulated or have any suicidal thoughts again. Patient has outpatient provider who was attentive as well as supportive daughter. Tooth Inspector was able to get a hold of patient's daughter; discussed case and daughter agrees that patient is doing much better and appropriate for discharge to return home. Patient is not in imminent risk for harm to self or others her request for discharge honored. Meds: Risperdal 1 mg daily and Risperdal 2 mg q.h.s. Seroquel 50 mg q.h.s. for insomnia, scheduled for few days, then prn for insomnia trazodone 50 mg q.h.s. p.r.n. for insomnia Time spent discussing smoking cessation with patient: 3 to 10 minutes Status at Discharge Functional status at discharge: independent ambulation Overall status at discharge: patient is back to baseline Time Spent with Patient Time attestation: Total time managing care of this patient today ____ minutes. Time spent: Less than 30 minutes Discharge Plan Discharge Anticipated Discharge Date/Time: 12/09/22 11:30 Patient Disposition: Home, Self-Care Discharge Diagnosis: schizoaffective disorder, bipolar type Referrals: Psychiatric Prescriber: Loree Noguera (MICROMATIC HONE OPERATOR) [Other] - 12/23/22 1:00 pm (Appointment is in person, at the office ) Therapy: Ford Yanez ([facility]) [Other] - 1 Week (Ford will be calling you to schedule your next appointment ) Sacha Haney MD [Physician] - 12/21/22 9:30 am (in office) Discharge Medications: New risperidone [Risperdal] 1 mg tablet 1 mg PO DAILY 30 Days Qty: 30 0RF risperidone [Risperdal] 2 mg tablet 2 mg PO BEDTIME 30 Days Qty: 30 0RF benztropine 0.5 mg tablet 0.5 mg PO BID 30 Days Qty: 60 0RF metoprolol tartrate 25 mg tablet 25 mg PO BID 30 Days Qty: 60 0RF quetiapine [Seroquel] 50 mg tablet 50 mg PO BEDTIME 30 Days Qty: 30 0RF Continued alendronate 70 mg tablet 70 mg PO QWEEK simvastatin 20 mg tablet 20 mg PO BEDTIME fenofibrate 160 mg tablet 160 mg PO DAILY Discontinued quetiapine 50 mg tablet 50 mg PO BEDTIME benztropine 0.5 mg Tablet 0.5 mg PO BID amlodipine 2.5 mg tablet 2.5 mg PO DAILY carbidopa-levodopa 25-100 mg tablet 1 tab PO BID No Action carbidopa-levodopa 25-100 mg tablet 1 tab PO BID cholecalciferol (vitamin D3) 25 mcg (1,000 unit) Tablet 25 mcg PO DAILY cefuroxime axetil 250 mg tablet 250 mg PO BID 5 Days Qty: 10 0RF Discharge Orders: Discharge Order (Routine); Ordered 12/09/22 Ordered By: Jourdan Martinez Diet: Regular diet Activity on Discharge: As tolerated Stand Alone Forms: Patient Portal Discharge page, Community Support Care Plan Goals: Maintain mood and safe behaviors Take medications as prescribed Practice coping skills Continue with outpatient providers and reach out to them as needed Health Concerns: Mood stability and behaviors Hypertension Plan of Treatment: Follow up with your PCP, psychiatric provider and other outpatient providers regarding above concerns Take medications as prescribed Assessment: Risk assessment at time of discharge:? Patient was interviewed prior to discharge and found to be fully oriented and without any SI or HI. Patient has insight and demonstrates good judgment in terms of wanting to pursue treatment. Patient is not in imminent risk of harm to self or others and has a safety plan that includes presenting to the closest ER or calling 911 if feeling unsafe.? Patient has been observed closely by nursing and unit staff throughout admission; patient has not engaged in any behaviors that suggest dangerousness to self or others and has demonstrated appropriate behaviors and impulse control Discharge Date/Time: 12/09/22 11:35
== END 2022-12-09 11:35 | disposition home or self-care (01) | DRG 885 ==
LOC: HO.ED 20:47 → HO.PM5 11-27 19:46
PROVIDERS: Psychiatry & Neurology Psychiatry; Admitting Provider Psychiatry & Neurology Psychiatry; Emergency Provider Emergency Medicine; Visit Provider Psychiatry & Neurology Psychiatry
DX: F25.0 Schizoaffective disorder, bipolar type (principal); R45.851 Suicidal ideations; E78.5 Hyperlipidemia, unspecified; I10 Essential (primary) hypertension; F41.9 Anxiety disorder, unspecified; Z20.822 Contact with and (suspected) exposure to COVID-19; Z79.899 Other long term (current) drug therapy
CPT/HCPCS: 36415; 80053; 80061; 80307; 81001; 84443; 85025; 87086; 87635; 93005; 99285; S9485

== ENCOUNTER → 2022-11-27 19:38 | Outpatient (BNV) | payer MEDICARE, MEDICAID, SELFPAY | PROVIDERS: Admitting Provider Psychiatry & Neurology Psychiatry; Emergency Provider Emergency Medicine; Visit Provider Psychiatry & Neurology Psychiatry | DX: F25.0 Schizoaffective disorder, bipolar type (principal) | CPT/HCPCS: 90792; 99231; 99232; 99238 ==

== ENCOUNTER 2022-12-31 12:14 | Emergency (ER) | payer MEDICARE, MEDICAID, SELFPAY ==
--- NOTE | 2022-12-31 12:38 | ED.GENADULT ---
HPI - General Adult General Chief complaint: Psychiatric Symptoms Stated complaint: CRISIS Time Seen by Provider: 12/31/22 12:38 Source: patient and EMS Mode of arrival: EMS Limitations: no limitations History of Present Illness HPI narrative: Patient is a 67 year old assigned female at with a history of HTN and schizoaffective disorder presenting to the emergency department today after an incident of self harm. Patient states that she has been taking her medications as prescribed but the other day, she had an impulse to hurt herself and scratched her right wrist with a butter knife. Patient denies any dizziness, lightheadedness, abdominal pain, nausea, vomiting, fever, chills, blurry vision, double vision, loss of vision, chest pain, difficulty breathing, shortness of breath, back pain, night sweats, pain with urination, increased urinary frequency, increased urinary urgency, blood in her urine or stool, syncope or a near syncopal episode, bowel incontinence, bladder incontinence, bowel retention, bladder retention, or any other complaints at this time. Onset (ago): day(s) Location: right (wrist) Radiation: non-radiation Severity: mild Severity scale (1-10): 3 Relieving factors: none Exacerbating factors: none Associated symptoms: denies other symptoms Treatments prior to arrival: none Related Data Home Medications Medication Instructions Recorded Confirmed alendronate 70 mg tablet 70 mg PO QWEEK 11/26/22 11/26/22 fenofibrate 160 mg tablet 160 mg PO DAILY 11/27/22 11/27/22 simvastatin 20 mg tablet 20 mg PO BEDTIME 11/27/22 11/27/22 Previous Rx's Medication Instructions Recorded risperidone 2 mg tablet 2 mg PO BEDTIME 30 days #30 tabs 12/08/22 benztropine 0.5 mg tablet 0.5 mg PO BID 30 days #60 tabs 12/09/22 carbidopa 25 mg-levodopa 100 mg 1 tab PO BID 30 days #60 tabs 12/09/22 tablet metoprolol tartrate 25 mg tablet 25 mg PO BID 30 days #60 tabs 12/09/22 quetiapine 50 mg tablet (Seroquel) 50 mg PO BEDTIME 30 days #30 tabs 12/09/22 risperidone 1 mg tablet (Risperdal) 1 mg PO DAILY 30 days #30 tabs 12/09/22 risperidone 2 mg tablet (Risperdal) 2 mg PO BEDTIME 30 days #30 tabs 12/09/22 Allergies Allergy/AdvReac Type Severity Reaction Status Date / Time No Known Allergies Allergy Verified 11/26/22 18:40 Review of Systems Constitutional: Constitutional: Reports no additional constitutional complaints, Denies chills, Denies fever(s) and Denies night sweats Eyes: Eyes: Reports no additional eye complaints, Denies blurry vision, Denies change in vision, Denies diplopia, Denies eye discharge, Denies loss of vision and Denies eye pain ENT: Denies dizziness Cardiovascular: Cardiovascular: Reports no additional cardiovascular complaints, Denies chest pain, Denies lightheadedness, Denies Loss of Consciousness and Denies dyspnea Respiratory: Respiratory: Reports no additional respiratory complaints and Denies dyspnea Gastrointestinal: Gastrointestinal: Reports no additional gastrointestinal complaints, Denies abdominal pain, Denies melena, Denies hematochezia, Denies change in bowel habits and Denies change in stool character Genitourinary: Genitourinary: Denies hematuria, Denies urinary frequency, Denies dysuria, Denies urinary incontinence, Denies urinary hesitancy and Denies urinary urgency Musculoskeletal: Musculoskeletal: Reports no additional musculoskeletal complaints, Denies numbness and Denies tingling Comments: superficial abrasion to the right dorsal wrist Neurologic: Denies dizziness, Denies loss of vision, Denies numbness and Denies tingling Psychiatric: Psychiatric: Reports no additional psychiatric complaints Endocrine: Endocrine: Reports no additional endocrine complaints Hematologic/Lymphatic: Hematologic/Lymphatic: Reports no additional hematologic/lymphatic complaints Allergic/Immunologic: Allergic/Immunologic: Reports no additional allergic/immunologic complaints [facility] Past Medical History Attestation statement: The following information was validated with the patient. 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 Sexual orientation: Straight/Heterosexual Physical Exam ED Vital Signs: Vital Signs - 24 hr 12/31/22 12:47 Temperature 97.8 F Pulse Rate 82 Respiratory Rate 16 Blood Pressure 148/82 H Pulse Oximetry 98 Oxygen Delivery Method Room Air BMI result Body Mass Index 20.0 Const General: cooperative, no acute distress, alert and awake Nutritional Appearance: well nourished Orientation/consciousness: patient oriented x3 Limitations: no limitations HENMT Head: Yes normal to inspection and Yes atraumatic Ears: hearing grossly normal bilaterally and external ears normal General nose exam: Normal external nose present, no nasal discharge noted and no epistaxis Face and sinus: Yes normal facial exam, No abrasion and No laceration Mouth: Normal oral and palatal mucosa present, no drooling and no muffled voice Eyes General: appearance normal, both eyes and all related structures Periorbital: periorbital findings normal Eyelids: Yes eyelids normal Conjunctivae: conjunctivae normal Pupils: Equal, round and reactive pupils present EOM: EOMs intact bilaterally Neck Neck: Yes normal visual inspection, Yes full ROM and Yes no lymphadenopathy Chest Chest palpation & inspection: normal inspection of the chest Resp Effort & Inspection: normal respiratory effort and able to speak in complete sentences Auscultation: clear to auscultation bilaterally Cardio Rate: regular rate Rhythm: regular rhythm GI Inspection: Yes normal to inspection Neuro General: patient oriented x3 and moves all extremities Cranial nerves: Yes Equal, round and reactive pupils present Cognition (Neuro): normal cognition Motor exam (neuro): 5/5 motor strength present throughout Sensory Exam: Normal double simultaneous stimulation for sensation Coordination: [id number] test normal Extrem Other: small abrasion to the right dorsal wrist, no active bleeding General: Yes full ROM and Yes capillary refill normal Psych Appearance: grossly normal Mental Status: mental status grossly normal Affect: normal affect Attitude: cooperative Thought process: Normal thought process present Thought content: Normal thought content present Insight: Good insight present (Psych) Medical Decision Making Medical Decision Making MDM Narrative: Patient is a 67 year old assigned female at with a history of HTN and Schizoaffective disorder presenting to the emergency department today with self harm thoughts. Patient's physical exam was as noted in the physical exam portion of this note. Patient's blood work was unremarkable. Patient's urine showed a possible UTI. Patient's EKG was unremarkable. I explained my physical exam findings as well as all test results to the patient. I answered all questions asked by the patient. Patient awaiting CARE team evaluation. Differential Diagnosis Differential Diagnoses: The differential diagnosis associated with the presentation includes UTI Thoughts of self harm Lab Data [facility] Lab Attestation statement: I reviewed the patient's lab results. My interpretation of these results are in the [facility] rationale portion of this note. 12/31/22 14:01 12/31/22 14:01 Labs: Lab Results 12/31/22 12/31/22 Range/Units 12:47 14:01 WBC 5.6 (4.8-10.8) X10*3/uL RBC 4.34 (4.20-5.50) X10*6/uL Hgb 12.8 (12.0-16.0) g/dl Hct 39.5 (37.0-47.0) % MCV 91.0 (80.0-98.0) fL MCH 29.5 (27.0-33.0) pg MCHC 32.4 (31.0-35.0) g/dl RDW 13.0 (11.0-16.0) % Plt Count 211 D (160-400) X10*3/uL MPV 12.7 H (9.4-12.3) fL Immature Gran % (Auto) 0.5 H (0.0-0.4) % Neut % (Auto) 59.4 (45-73) % Lymph % (Auto) 28.3 (20-40) % [place] % (Auto) 9.3 (2-11) % Eos % (Auto) 1.8 (0-4) % Baso % (Auto) 0.7 (0-2) % Lymph # (Auto) 1.6 (1.2-4.9) X10*3/uL [place] # (Auto) 0.5 (0.1-1.2) X10*3/uL Eos # (Auto) 0.1 (0.0-0.4) X10*3/uL Baso # (Auto) 0.0 (0.0-0.2) X10*3/uL Abs Immat Gran (auto) 0.03 (0.00-0.03) X10*3/uL Absolute Neuts (auto) 3.3 (2.0-8.3) x10*3/uL Absolute Nucleated RBC 0.000 (0.0-0.012) X10*3/uL Nucleated RBC % (auto) 0.0 (0.0-0.2) /100WBC Sodium 145 (135-145) mmol/L Potassium 3.9 (3.3-5.1) mmol/L Chloride 111 H (96-108) mmol/L Carbon Dioxide 25 (22-29) mmol/L Anion Gap 13 (12-20) BUN 16 (9-16) mg/dL Creatinine 0.90 (0.5-1.4) mg/dL Estim Creat Clear Calc 52.1 Estimated GFR > 60 Random Glucose 119 H (60-115) mg/dL Calcium 10.2 (8.4-10.2) mg/dL Total Bilirubin 0.4 (0.0-1.0) mg/dL AST 23 (5-31) U/L ALT 21 (0-31) U/L Alkaline Phosphatase 42 (39-117) U/L Total Protein 7.7 (6.5-8.0) g/dL Albumin 4.4 (3.5-5.0) g/dL Urine Color Yellow Urine Appearance Cloudy Urine pH 6.0 (5.0-9.0) Ur Specific [place] 1.010 (1.005-1.025) Urine Protein Negative (Neg-Trace) mg/dL Urine Glucose (UA) Negative (Negative) mg/dL Urine Ketones Negative (Negative) mg/dL Urine Blood Negative (Negative) Urine Nitrite Negative (Negative) Ur Leukocyte Esterase Large (3+) H (Negative) Urine RBC 0-2 (0-2) /HPF Urine WBC 21-50 H (0-5) /HPF Ur Squamous Epith Cells 11-20 (0-2) /HPF Calcium Oxalate Crystal Present Urine Bacteria 1+ (None Seen) Hyaline Casts 0-2 (0-2) /LPF Salicylates < 5.0 L (15-30) mg/dL Acetaminophen < 17 (<30) mcg/mL Ethyl Alcohol < 10 mg/dL Independent Interpretation I performed an independent interpretation of an: EKG Interpretation: Vent. Rate: 083 BPM Atrial Rate: 083 BPM P-R Int: 150 ms QRS Dur: 072 ms QT Int: 326 ms P-R-T Axes: 072 071 066 degrees QTc Int: 383 ms Normal sinus rhythm Normal ECG When compared with ECG of 01-DEC-2022 18:25, No significant change was found DD/ [id number] Independent Historian Clinical information obtained from an independent historian. History obtained from or confirmed by: EMS (EMS provided additional history and confirmed the history provided by the patient.) Discharge Plan Discharge Clinical Impression: Schizoaffective disorder, UTI (urinary tract infection) Patient Disposition: Still a Patient Prescriptions: No Action alendronate 70 mg tablet 70 mg PO QWEEK simvastatin 20 mg tablet 20 mg PO BEDTIME fenofibrate 160 mg tablet 160 mg PO DAILY risperidone 2 mg Tablet 2 mg PO BEDTIME 30 Days Qty: 30 0RF risperidone [Risperdal] 1 mg tablet 1 mg PO DAILY 30 Days Qty: 30 0RF risperidone [Risperdal] 2 mg tablet 2 mg PO BEDTIME 30 Days Qty: 30 0RF benztropine 0.5 mg tablet 0.5 mg PO BID 30 Days Qty: 60 0RF metoprolol tartrate 25 mg tablet 25 mg PO BID 30 Days Qty: 60 0RF carbidopa-levodopa 25-100 mg tablet 1 tab PO BID 30 Days Qty: 60 0RF quetiapine [Seroquel] 50 mg tablet 50 mg PO BEDTIME 30 Days Qty: 30 0RF
[2022-12-31 12:47] VITALS: BP 102/70; BP 148/82; PULSE 82; PULSE 88; RESP 16; TEMP 36.6; O2SAT 98
[2022-12-31 14:27] LABS: Alanine Aminotransferase 21 U/L (0-31); Albumin Level 4.4 g/dL (3.5-5.0); Alkaline Phosphatase 42 U/L (39-117); Anion Gap 13 (12-20); Aspartate Amino Transferase 23 U/L (5-31); Bilirubin Total 0.4 mg/dL (0.0-1.0); Blood Urea Nitrogen 16 mg/dL (9-16); Calcium 10.2 mg/dL (8.4-10.2); Carbon Dioxide 25 mmol/L (22-29); Chloride 111 mmol/L (96-108); Creatinine Clr Calc Pharmacy 52.1; Estimated Glomerular Filt Rate > 60; Ethanol < 10 mg/dL; Glucose Random 119 mg/dL (60-115); Potassium 3.9 mmol/L (3.3-5.1); Sodium 145 mmol/L (135-145); Total Protein 7.7 g/dL (6.5-8.0)
--- NOTE | 2022-12-31 17:35 | PHA.MEDREC ---
Pharmacy Consult ? Medication Reconciliation Pharmacy has completed the medication reconciliation. Patient brought in RX bottles. Geri Strickland, BrownD
[2022-12-31 20:50] VITALS: BP 135/84; PULSE 87; RESP 17; TEMP 36.6; O2SAT 99
[2023-01-01 06:00] VITALS: BP 120/88; PULSE 90; RESP 16; TEMP 36.6; O2SAT 99
--- NOTE | 2023-01-01 06:06 | PC.NURSE ---
Patient slept through the night, no distress observed/reported, behavior non concerning, medication compliant, + UTI Ceftin 250 mg BID initiated patient compliant, patient was assessed by care team, disposition pending at this time, patient will be reassessed in the morning, labs completed/resulted, ambulation independent, appetite adequate coherent thought content, will continue to monitor.
--- NOTE | 2023-01-01 07:36 | PC.NURSE ---
patient appears to remain asleep at present respirations are even and unlabored patient appears in no distress
[2023-01-01 20:38] VITALS: BP 152/77; PULSE 82; RESP 18; TEMP 36.5; O2SAT 98
[2023-01-02 04:45] VITALS: BP 91/61; PULSE 71; RESP 16; TEMP 36.3; O2SAT 97
[2023-01-02 08:31] VITALS: BP 133/71; PULSE 72; RESP 16; TEMP 36.7; O2SAT 98
--- NOTE | 2023-01-02 18:30 | PC.NURSE ---
Patient will be discharged to [facility] in [place]. Dr. Jackson gave a verbal order to give 9 pm dose early so that patient can have last dose of ATB before she leaves for dispo.
== END 2023-01-02 18:44 ==
PROVIDERS: Physician Assistant Medical; Emergency Provider Emergency Medicine Emergency Medical Services; PCP Family Medicine
DX: F25.9 Schizoaffective disorder, unspecified (principal); N39.0 Urinary tract infection, site not specified; R45.851 Suicidal ideations; S60.811A Abrasion of right wrist, initial encounter; X78.1XXA Intentional self-harm by knife, initial encounter; F41.9 Anxiety disorder, unspecified; I10 Essential (primary) hypertension; E78.5 Hyperlipidemia, unspecified; Z79.899 Other long term (current) drug therapy; Y93.9 Activity, unspecified; Y92.9 Unspecified place or not applicable; Y99.9 Unspecified external cause status; Z11.52 Encounter for screening for COVID-19
CPT/HCPCS: 80053; 80143; 80179; 80307; 81001; 85025; 87086; 87635; 93005; 99285; S9485

== ENCOUNTER 2023-02-21 12:37 | Outpatient (REF) | payer MEDICARE, MEDICAID, SELFPAY | END 2023-02-21 12:38 | disposition home or self-care (01) | LOC: HO.MAMMO 12:37 | PROVIDERS: PCP Family Medicine; Visit Provider Family Medicine | DX: Z12.31 Encounter for screening mammogram for malignant neoplasm of breast (principal) | CPT/HCPCS: 77063; 77067 ==

== ENCOUNTER → 2023-02-21 13:00 | Outpatient (BNV) | payer MEDICARE, MEDICAID, SELFPAY | PROVIDERS: PCP Family Medicine; Visit Provider Radiology Diagnostic Radiology | DX: Z12.31 Encounter for screening mammogram for malignant neoplasm of breast (principal) | CPT/HCPCS: 77063; 77067 ==

== ENCOUNTER 2023-03-14 17:02 | Inpatient (IN) | payer MEDICARE, MEDICAID, SELFPAY ==
[2023-03-14 17:08] VITALS: BP 110/77; PULSE 92; RESP 20; TEMP 36.5; O2SAT 99; BMI 19.6
--- NOTE | 2023-03-14 17:17 | ED.GENADULT ---
HPI - General Adult General Chief complaint: Psychiatric Symptoms Stated complaint: Laceration on wrist Time Seen by Provider: 03/14/23 17:25 Source: patient Mode of arrival: ambulatory Limitations: no limitations History of Present Illness HPI narrative: Patient is a 67-year-old female who presents emergency department with her daughter for evaluation of increasing depression, she made 2 superficial lacerations over her left breast today with a kitchen knife due to her increasing depression an attempt to harm herself. At this time she states she does not feel as though she is suicidal and she denies homicidal ideations. She does admit that she is feeling increasingly depressed. Daughter reports that she over the past year has had an inpatient psych stay as well as respite stay. Daughter did not feel as though respite was beneficial for her. Patient denies any physical complaints at this time. She is unaware of the date of her last tetanus vaccination. Patient reports compliance with her medications. Daughter expresses concern as the patient's daughter committed suicide 7 years ago, therefore she takes this very seriously , which I think is reasonable. Patient denies any physical complaints at this time. Related Data Home Medications Medication Instructions Recorded Confirmed alendronate 70 mg tablet 70 mg PO QWEEK 11/26/22 03/14/23 fenofibrate 160 mg tablet 160 mg PO DAILY 11/27/22 03/14/23 simvastatin 20 mg tablet 20 mg PO BEDTIME 11/27/22 03/14/23 carbidopa 25 mg-levodopa 100 mg 1 tab PO BID@0900,1200 12/31/22 03/14/23 tablet cholecalciferol (vitamin D3) 25 25 mcg PO DAILY 12/31/22 03/14/23 mcg (1,000 unit) tablet Previous Rx's Medication Instructions Recorded benztropine 0.5 mg tablet 0.5 mg PO BID 30 days #60 tabs 12/09/22 metoprolol tartrate 25 mg tablet 25 mg PO BID 30 days #60 tabs 12/09/22 quetiapine 50 mg tablet (Seroquel) 50 mg PO BEDTIME 30 days #30 tabs 12/09/22 risperidone 1 mg tablet (Risperdal) 1 mg PO DAILY 30 days #30 tabs 12/09/22 risperidone 2 mg tablet (Risperdal) 2 mg PO BEDTIME 30 days #30 tabs 12/09/22 Allergies Allergy/AdvReac Type Severity Reaction Status Date / Time No Known Allergies Allergy Verified 11/26/22 18:40 Review of Systems Review of Systems: Yes all other systems are reviewed and are negative FOR[facility] Past Medical History Attestation statement: The following information was validated with the patient. Source: old records reviewed Medical History Schizoaffective disorder Anxiety HLD (hyperlipidemia) HTN (hypertension) Schizophrenia Social History Social History Household Members: Other Household Members Other:: roommate Housing: Apartment Do you presently have visiting nurse or other home services: No Alcohol intake: former Patient Tobacco Use Status: Never used Tobacco Advance Directives: No Advance Directives Information Provided: No service: No Current 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 status: 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 Sexual orientation: Straight/Heterosexual Physical Exam ED Vital Signs: Vital Signs - 24 hr 03/14/23 17:08 03/14/23 17:31 Temperature 97.7 F Pulse Rate 92 87 Respiratory Rate 20 Blood Pressure 110/77 109/74 Pulse Oximetry 99 98 Oxygen Delivery Method Room Air Room Air BMI result Body Mass Index 19.6 Appearance: Alert.?Oriented to person, place and time. No acute distress.?Normal affect. Eyes: Pupils equal, round and reactive to light.? ENT: Pharynx normal.?? Neck: Normal inspection.? Neck supple.?? CVS: Heart sounds normal. Normal heart rate and rhythm.? Pulses normal.?? Respiratory: No respiratory distress.? Lung sounds clear to auscultation bilaterally?? Abdomen: Soft and non-tender. Normoactive bowel sounds. Skin: Skin warm and dry.? Normal skin color.? Left breast with two 2cm very superficial abrasions, no active bleeding? Extremities: No lower extremity edema.? Neuro: Moves all extremities spontaneously. Sensation intact bilaterally. CN II-XII intact. No focal neuro deficits. Ambulates with normal steady gait. Course Course Course Narrative: This is an RME: Additional HPI, ROS, PE not included below will be deferred to primary provider. This is a 18-pkej-nyt-female history of HTN and schizoaffective disorder presenting to the emergency department with complaints of self-harm. Patient states that she attempted to cut herself in her left breast today. She has 2 small superficial abrasions noted to her left breast, no active bleeding. She no longer feels suicidal, denies homicidal ideation. He has been taking her medications as prescribed. She has been admitted to psychiatrically in the past. patient was brought back into the psych pod for further evaluation Plan: labs, UA Reevaluation(s) Reevaluation #1: CBC and CMP are overall unremarkable. Urinalysis with 3+ leukocyte esterase, urine RBC 3-5, urine WBC 21-50, 6-10 squamous cells, bacteria 4+, concern at this time for urogenital contamination versus urinary tract infection. She does not endorse urinary symptoms, she has no leukocytosis. I reviewed previous urine specimens from November and December of this year which appeared similar without any notable growth on culture, consistent with urogenital contamination. Placed in physician observation to the care team evaluation can ensue. Time: 23:07 Medications Administered Discontinued Medications Generic Name Dose Route Start Last Admin Trade Name Freq PRN Reason Stop Dose Admin Diphtheria/Tetanus/Acell Pertussis 0.5 ml 03/14/23 17:27 03/14/23 18:30 Diphth,Pertus(Acell),Tet Adult 0.5 Ml Syringe IM 03/14/23 17:28 Not Given .ONCE ONE Medical Decision Making Medical Decision Making MDM Narrative: Patient is a 67-year-old female past medical history of hypertension, schizoaffective disorder, hypertension, hyperlipidemia presenting to emergency department for evaluation after lacerations to the left breast in an attempt to harm herself as per HPI with no active suicidal thoughts. She is calm and cooperative at the time of my examination. She is nontoxic. In no apparent distress. She has no physical complaints and her physical examination is benign. Plan to obtain serum labs, toxicology, and urinalysis as daughter reports in the past when she has felt this way she has also been found to have a urinary tract infection. Patient will be referred to CARE team as well for determination as to whether inpatient psychiatric services are required at this time versus safe disposition planning. Differential Diagnosis Differential Diagnoses: The differential diagnosis associated with the presentation includes (Depression, schizoaffective disorder, laceration, urinalysis) Admission/Observation Consideration of admission/observation: Escalation of care including admission/observation considered Patient will require physician observation so the care team evaluation can ensue Consult Healthcare Provider Management of the patient was discussed with: Behavioral Health Provider Lab Data MDM Lab Attestation statement: I reviewed the patient's lab results. (See course narrative) 03/14/23 17:50 03/14/23 17:50 Labs: Lab Results 03/14/23 Range/Units 17:50 WBC 6.7 (4.8-10.8) X10*3/uL RBC 4.37 (4.20-5.50) X10*6/uL Hgb 12.8 (12.0-16.0) g/dl Hct 40.0 (37.0-47.0) % MCV 91.5 (80.0-98.0) fL MCH 29.3 (27.0-33.0) pg MCHC 32.0 (31.0-35.0) g/dl RDW 12.4 (11.0-16.0) % Plt Count 203 (160-400) X10*3/uL MPV 13.0 H (9.4-12.3) fL Immature Gran % (Auto) 0.3 (0.0-0.4) % Neut % (Auto) 69.9 (45-73) % Lymph % (Auto) 20.6 (20-40) % [place] % (Auto) 8.1 (2-11) % Eos % (Auto) 0.6 (0-4) % Baso % (Auto) 0.5 (0-2) % Lymph # (Auto) 1.4 (1.2-4.9) X10*3/uL [place] # (Auto) 0.5 (0.1-1.2) X10*3/uL Eos # (Auto) 0.0 (0.0-0.4) X10*3/uL Baso # (Auto) 0.0 (0.0-0.2) X10*3/uL Abs Immat Gran (auto) 0.02 (0.00-0.03) X10*3/uL Absolute Neuts (auto) 4.7 (2.0-8.3) x10*3/uL Absolute Nucleated RBC 0.000 (0.0-0.012) X10*3/uL Nucleated RBC % (auto) 0.0 (0.0-0.2) /100WBC Sodium 143 (135-145) mmol/L Potassium 3.7 (3.3-5.1) mmol/L Chloride 111 H (96-108) mmol/L Carbon Dioxide 23 (22-29) mmol/L Anion Gap 13 (12-20) BUN 15 (9-16) mg/dL Creatinine 0.94 (0.5-1.4) mg/dL Estim Creat Clear Calc 49.0 Estimated GFR 59 Random Glucose 127 H (60-115) mg/dL Calcium 9.7 (8.4-10.2) mg/dL Total Bilirubin 0.5 (0.0-1.0) mg/dL AST 23 (5-31) U/L ALT 7 (0-31) U/L Alkaline Phosphatase 38 L (39-117) U/L Total Protein 7.3 (6.5-8.0) g/dL Albumin 4.2 (3.5-5.0) g/dL Urine Color Yellow Urine Appearance Turbid Urine pH 7.0 (5.0-9.0) Ur Specific [place] 1.020 (1.005-1.025) Urine Protein 30 (1+) H (Neg-Trace) mg/dL Urine Glucose (UA) Negative (Negative) mg/dL Urine Ketones Negative (Negative) mg/dL Urine Blood Negative (Negative) Urine Nitrite Negative (Negative) Ur Leukocyte Esterase Large (3+) H (Negative) Urine RBC 3-5 H (0-2) /HPF Urine WBC 21-50 H (0-5) /HPF Ur Squamous Epith Cells 6-10 (0-2) /HPF Urine Bacteria 4+ (None Seen) Hyaline Casts 6-10 (0-2) /LPF Salicylates < 5.0 L (15-30) mg/dL Urine Opiates Screen Not Detected (Not Detect) Urine Fentanyl Screen Not Detected (Not Detect) Acetaminophen < 3 (<30) mcg/mL Ur Barbiturates Screen Not Detected (Not Detect) Ur Phencyclidine Scrn Not Detected (Not Detect) Ur Amphetamines Screen Not Detected (Not Detect) U Benzodiazepines Scrn Not Detected (Not Detect) Urine Cocaine Screen Not Detected (Not Detect) U Marijuana (THC) Screen Not Detected (Not Detect) Ethyl Alcohol < 10 mg/dL COVID-19 (LUPE) Negative (Negative) COVID-19 Clin Com See Note Independent Historian Clinical information obtained from an independent historian. History obtained from or confirmed by: Other (Daughter present at bedside who confirms history) External Record Review External record reviewed: Outpatient record Discharge Plan Discharge Clinical Impression: Suicidal ideation Patient Disposition: Still a Patient Prescriptions: No Action alendronate 70 mg tablet 70 mg PO QWEEK Rx Instructions: PT takes on Fridays simvastatin 20 mg tablet 20 mg PO BEDTIME fenofibrate 160 mg tablet 160 mg PO DAILY risperidone [Risperdal] 1 mg tablet 1 mg PO DAILY 30 Days Qty: 30 0RF risperidone [Risperdal] 2 mg tablet 2 mg PO BEDTIME 30 Days Qty: 30 0RF benztropine 0.5 mg tablet 0.5 mg PO BID 30 Days Qty: 60 0RF metoprolol tartrate 25 mg tablet 25 mg PO BID 30 Days Qty: 60 0RF quetiapine [Seroquel] 50 mg tablet 50 mg PO BEDTIME 30 Days Qty: 30 0RF carbidopa-levodopa 25-100 mg tablet 1 tab PO BID@0900,1200 Rx Instructions: Take one tab by mouth in the AM and at Noon cholecalciferol (vitamin D3) 25 mcg (1,000 unit) Tablet 25 mcg PO DAILY Interventions: [place]-Suicide Risk Severity Scale Last Done: 03/14/23 17:37
[2023-03-14 17:31] VITALS: BP 109/74; PULSE 87; O2SAT 98
--- NOTE | 2023-03-14 17:38 | PC.NURSE ---
Melia self presented to the emergency dept after her daughter brought her in concerned she had made several very superficial scratches to her L breast. Redness observed but skin is not open and there is no bleeding. Daughter accompanied her mom to the unit and stated she has been concerned for her mental health lately. Melia was agreeable to the frame changer and labs are ordered.
[2023-03-14 17:56] LABS: MANUAL DIFF FLAG NO
[2023-03-14 18:01] LABS: Appearance Urine Turbid; Color Urine Yellow; Glucose Urine UA Negative (Negative); Leukocyte Esterase Urine Large (3+) (Negative); Nitrite Urine Negative (Negative); UMIC TRIGGER UACC YES; Urine Blood Negative (Negative); Urine Ketones Negative (Negative); Urine Protein 30 (1+) mg/dL (Neg-Trace)
[2023-03-14 18:02] LABS: Basophils Percent Auto 0.5 % (0-2); Eosinophils Percent Auto 0.6 % (0-4); Hemoglobin 12.8 g/dl (12.0-16.0); Imm Gran Abs Auto 0.02 X10*3/uL (0.00-0.03); Imm Gran Pct Auto 0.3 % (0.0-0.4); Lymphocytes Absolute Auto 1.4 X10*3/uL (1.2-4.9); Lymphocytes Percent Auto 20.6 % (20-40); Mean Corpuscular Hemoglobin 29.3 pg (27.0-33.0); Mean Corpuscular Volume 91.5 fL (80.0-98.0); Monocytes Absolute Auto 0.5 X10*3/uL (0.1-1.2); Monocytes Percent Auto 8.1 % (2-11); Neutrophils Absolute Auto 4.7 x10*3/uL (2.0-8.3); Neutrophils Percent Auto 69.9 % (45-73); Platelet Count 203 X10*3/uL (160-400); Red Blood Count 4.37 X10*6/uL (4.20-5.50); Red Cell Distribution Width 12.4 % (11.0-16.0); White Blood Count 6.7 X10*3/uL (4.8-10.8)
[2023-03-14 18:13] LABS: COVID-19 Test Negative (Negative); IDNOW Serial# BCCEAD1C
[2023-03-14 18:15] LABS: Acetaminophen LAB < 3 mcg/mL (<30); Alanine Aminotransferase 7 U/L (0-31); Albumin Level 4.2 g/dL (3.5-5.0); Alkaline Phosphatase 38 U/L (39-117); Anion Gap 13 (12-20); Aspartate Amino Transferase 23 U/L (5-31); Bilirubin Total 0.5 mg/dL (0.0-1.0); Blood Urea Nitrogen 15 mg/dL (9-16); Calcium 9.7 mg/dL (8.4-10.2); Carbon Dioxide 23 mmol/L (22-29); Chloride 111 mmol/L (96-108); Estimated Glomerular Filt Rate 59; Ethanol < 10 mg/dL; Glucose Random 127 mg/dL (60-115); Potassium 3.7 mmol/L (3.3-5.1); Salicylate < 5.0 mg/dL (15-30); Sodium 143 mmol/L (135-145); Total Protein 7.3 g/dL (6.5-8.0)
[2023-03-14 18:19] LABS: Bacteria Urine 4+ (None Seen); UACC Culture Trigger YES; WBC Urine 21-50 /HPF (0-5)
[2023-03-14 18:21] LABS: Amphetamine Screen Urine Not Detected (Not Detect); Barbiturates, Urine Not Detected (Not Detect); Benzodiazepines Screen Urine Not Detected (Not Detect); Cannabinoid Screen Urine Not Detected (Not Detect); Cocaine Screen Urine Not Detected (Not Detect); Fentanyl, urine Not Detected (Not Detect); Opiate Screen Urine Not Detected (Not Detect); Phencyclidine Screen Urine Not Detected (Not Detect)
--- NOTE | 2023-03-14 19:47 | PC.NURSE ---
patient remains seated in rear common area in behavioral pod, appears in no distress, awaits care team assessment
--- NOTE | 2023-03-14 21:32 | PHA.MEDREC ---
Pharmacy Consult ? Medication Reconciliation Pharmacy has reviewed the medication reconciliation completed by Sara. Geri Strickland, BrownD
--- NOTE | 2023-03-15 00:07 | PC.NURSE ---
patients fallen asleep on couch appears in no distress
[2023-03-15 09:26] VITALS: BP 135/86; PULSE 90; TEMP 36.6; O2SAT 97
[2023-03-15] MEDS: Metoprolol Tartrate 25 MG TABLET PO ×2 (09:28→21:10)
[2023-03-15] MEDS: Carbidopa/Levodopa 25/100 TABLET 1 TAB PO ×2 (09:28→13:07)
[2023-03-15] MEDS: Cholecalciferol (Vitamin D3) 25 MCG TABLET PO (09:28)
[2023-03-15] MEDS: risperiDONE 1 MG TABLET PO (09:29)
[2023-03-15] MEDS: Benztropine Mesylate 0.5 MG TABLET PO ×2 (09:29→21:10)
[2023-03-15] MEDS: Fenofibrate 160 MG TABLET PO (09:55)
--- NOTE | 2023-03-15 11:55 | PC.NURSE ---
resting in room. alert. no si/hi. breathing well
--- NOTE | 2023-03-15 12:45 | ECG_ITS ---
Test Reason : CHECK PROLONG QT Blood Pressure : / mmHG Vent. Rate : 053 BPM Atrial Rate : 053 BPM P-R Int : 146 ms QRS Dur : 072 ms QT Int : 394 ms P-R-T Axes : 054 050 048 degrees QTc Int : 369 ms Sinus bradycardia Otherwise normal ECG When compared with ECG of 31-DEC-2022 15:18, Vent. rate has decreased BY 30 BPM T wave inversion now evident in Anterior leads Referred By: Rock Jackson Electronically Signed By:KYUNG GARCÍA MD
--- NOTE | 2023-03-15 14:33 | PC.NURSE ---
gave report to juan pablo gaytan pt.
[2023-03-15 16:15] VITALS: BP 136/70; PULSE 56; RESP 18; TEMP 36.8; O2SAT 98
[2023-03-15 17:47] VITALS: BMI 19.6
[2023-03-15] MEDS: Acetaminophen 325 MG TABLET 650 MG PO (18:25)
--- NOTE | 2023-03-15 19:36 | PC.ADMIT ---
Melia was admitted to on 03/15/23 at 16:00 from [facility] for the treatment of SI. Melia was brought to the ED by her daughter after making 2 superficial lacerations on her left breast secondary to increased depression. She denies this was a suicide attempt. She states her goal is to feel better . Melia states this time of year is difficult because she has suffered several losses in the past few years around this time. She is alert and oriented to person, place, time, and situation. She was cooperative with admission process. She reports feeling more depressed lately but states that she feels safe in the hospital and reports that she can come to staff for help if feeling unsafe. She denies current suicidal and homicidal thoughts and intent. She denies auditory and visual hallucinations. She reports her sleep is fine , but states her appetite has been diminished and told this financial writer she has lost over 30 lbs in the past year unintentionally. Her utox was negative and she denies use of etoh or substances. She was placed on 15 minute checks for safety.
[2023-03-15 21:02] VITALS: BP 122/61; PULSE 72; RESP 16; TEMP 37.1; O2SAT 99
[2023-03-15] MEDS: QUEtiapine Fumarate 50 MG TABLET PO (21:10)
[2023-03-15] MEDS: risperiDONE 2 MG TABLET PO (21:10)
[2023-03-15] MEDS: Atorvastatin Calcium 10 MG TABLET PO (21:10)
[2023-03-16 08:01] VITALS: BP 123/76; PULSE 62; RESP 19; TEMP 36.7; O2SAT 99
[2023-03-16] MEDS: Cholecalciferol (Vitamin D3) 25 MCG TABLET PO (09:03)
[2023-03-16] MEDS: Metoprolol Tartrate 25 MG TABLET PO ×2 (09:03→22:46)
[2023-03-16] MEDS: risperiDONE 1 MG TABLET PO (09:03)
[2023-03-16] MEDS: Fenofibrate 160 MG TABLET PO (09:03)
[2023-03-16] MEDS: Carbidopa/Levodopa 25/100 TABLET 1 TAB PO ×2 (09:03→13:14)
[2023-03-16] MEDS: Benztropine Mesylate 0.5 MG TABLET PO ×2 (09:03→22:46)
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
[2023-03-16 10:28] LABS: Alanine Aminotransferase 14 U/L (0-31); Albumin Level 4.2 g/dL (3.5-5.0); Alkaline Phosphatase 36 U/L (39-117); Anion Gap 13 (12-20); Aspartate Amino Transferase 17 U/L (5-31); Bilirubin Total 0.5 mg/dL (0.0-1.0); Blood Urea Nitrogen 24 mg/dL (9-16); Carbon Dioxide 26 mmol/L (22-29); Chloride 110 mmol/L (96-108); Cholesterol 130 mg/dL (<200); Estimated Glomerular Filt Rate 47; Glucose Fasting 89 mg/dL (60-99); HDL Cholesterol 46 mg/dL (>40); LDL Cholesterol Calculated 71 mg/dL (<100); Potassium 3.6 mmol/L (3.3-5.1); Sodium 145 mmol/L (135-145); Total Protein 7.1 g/dL (6.5-8.0); Triglycerides 67 mg/dL (<150)
[2023-03-16 10:36] LABS: Calcium 11.1 mg/dL (8.4-10.2)
--- NOTE | 2023-03-16 13:31 | MHC.CLN ---
NUTRITION CONSULT FOR 30# WEIGHT LOSS X ONE YEAR. REVIEW OF WEIGHT HX SHOWS 29#, -19.7% WEIGHT LOSS X 10 MONTHS. VISITED PATIENT IN HER ROOM. AGREES TO ENSURE BID. SUPPLEMENT PROVIDES ADDITIONAL 700 KCALS, 40 G PROTEIN.
[2023-03-16 16:50] VITALS: BP 145/67; PULSE 70; RESP 16; TEMP 36.9; O2SAT 99
[2023-03-16 22:35] VITALS: BP 133/60; PULSE 82
[2023-03-16] MEDS: traZODone HCL 50 MG TABLET PO (22:46)
[2023-03-16] MEDS: risperiDONE 2 MG TABLET PO (22:46)
[2023-03-16] MEDS: QUEtiapine Fumarate 50 MG TABLET PO (22:46)
[2023-03-16] MEDS: Atorvastatin Calcium 10 MG TABLET PO (22:46)
[2023-03-17 07:00] VITALS: BMI 19.9
[2023-03-17 08:20] VITALS: BP 123/66; PULSE 76; RESP 16; TEMP 37; O2SAT 97
[2023-03-17] MEDS: Cholecalciferol (Vitamin D3) 25 MCG TABLET PO (08:49)
[2023-03-17] MEDS: Fenofibrate 160 MG TABLET PO (08:49)
[2023-03-17] MEDS: risperiDONE 1 MG TABLET PO (08:49)
[2023-03-17] MEDS: Carbidopa/Levodopa 25/100 TABLET 1 TAB PO ×2 (08:49→12:48)
[2023-03-17] MEDS: Benztropine Mesylate 0.5 MG TABLET PO ×2 (08:49→22:03)
[2023-03-17] MEDS: Metoprolol Tartrate 25 MG TABLET PO ×2 (08:49→22:03)
--- NOTE | 2023-03-17 15:05 | HO.PSYCHPN ---
Subjective Subjective Date of Service: 03/17/23 Reason For Visit: Crisis Interim History: Pt reports she is wanting to remain in hospital until her room-mate returns from rehab. She believes he will return 03/26. She denies SI, HI, AH, VH. She has been discussing antidepressant trial for negative sx and continues to be undecided. States her daughter will visit on 03/19. PCP has made contact with the team and expressed concerns about pt in community. PCP noted pt needs derm follow up appt. Pt reports she has a yearly visit scheduled in 2023 and was told that she does not need to be seen before that. PCP also believes that Perphenazine was more helpful than Risperdal, however, pt declines this change. Medication Compliance: Yes Side effects from medications: No Attending Groups: No Review of Systems Acute medical concerns: No Medical Review of Systems: unchanged Review of Systems Review of Systems Yes all other systems are reviewed and are negative (pt denies) Mental Status Exam Mental Status Exam Patient Appearance: Appropriate Patient Orientation: Person, Place, Time and Situation Level of Consciousness: Alert Patient Behavior: Talkative Mood Description: Anxious Affect Description: Constricted Patient Cognition Impaired: No Ability to Follow Directions: Good Speech Pattern: Spontaneous Speech Memory Description: Intact Hallucinations: None Delusions: Not Present Thought Process: Rumination Thought Content: positive for Perseveration and positive for Suicidal Ideation (denies) Depressive Symptoms: Increased Anxiety Judgement: Fair Diagnostics Vital Signs (24Hr): Vital Signs - 24 hr 03/16/23 16:50 03/16/23 22:35 03/17/23 08:20 Temperature 98.4 F 98.6 F Pulse Rate 70 82 76 Respiratory Rate 16 16 Blood Pressure 145/67 H 133/60 123/66 Pulse Oximetry 99 97 Oxygen Delivery Method Room Air Room Air BMI result Body Mass Index 19.9 Labs 03/14/23 17:50 03/16/23 09:05 Labs: Laboratory Results - last 48 hr 03/16/23 09:05 Sodium 145 Potassium 3.6 Chloride 110 H Carbon Dioxide 26 Anion Gap 13 BUN 24 H Creatinine 1.15 Estim Creat Clear Calc 40.0 Estimated GFR 47 Fasting Glucose 89 Calcium 11.1 H D Total Bilirubin 0.5 AST 17 ALT 14 Alkaline Phosphatase 36 L Total Protein 7.1 Albumin 4.2 Triglycerides 67 Cholesterol 130 LDL Cholesterol, Calc 71 HDL Cholesterol 46 Medications Medications Current Medications Acetaminophen (Acetaminophen 325 Mg Tablet) 650 mg PO Q6H PRN PRN Reason: Headache/Pain Mild Scale (1-3) Last Admin: 03/15/23 18:25 Dose: 650 mg Al Hydroxide/Mg Hydroxide (Magnesium Hydrox/Alum Hydrox 30 Ml Oral.Susp) 30 ml PO Q6H PRN PRN Reason: Heartburn/Nausea Atorvastatin Calcium (Atorvastatin Calcium 10 Mg Tablet) 10 mg PO BEDTIME [facility] Last Admin: 03/16/23 22:46 Dose: 10 mg Benztropine Mesylate (Benztropine Mesylate 0.5 Mg Tablet) 0.5 mg PO BID [facility] Last Admin: 03/17/23 08:49 Dose: 0.5 mg Carbidopa/Levodopa (Carbidopa/Levodopa 25/100 Tablet) 1 tab PO BID@0900,1200 [facility] Last Admin: 03/17/23 12:48 Dose: 1 tab Fenofibrate (Fenofibrate 160 Mg Tablet) 160 mg PO DAILY [facility] Last Admin: 03/17/23 08:49 Dose: 160 mg Hydroxyzine HCl (Hydroxyzine Hcl 25 Mg Tablet) 25 mg PO Q6H PRN PRN Reason: Anxiety Magnesium Hydroxide (Milk Of Magnesia 30 Ml Oral.Susp) 30 ml PO DAILY PRN PRN Reason: Constipation Metoprolol Tartrate (Metoprolol Tartrate 25 Mg Tablet) 25 mg PO BID [facility]; Protocol Last Admin: 03/17/23 08:49 Dose: 25 mg Quetiapine Fumarate (Quetiapine Fumarate 50 Mg Tablet) 50 mg PO BEDTIME [facility] Last Admin: 03/16/23 22:46 Dose: 50 mg Risperidone (Risperidone 1 Mg Tablet) 1 mg PO DAILY [facility] Last Admin: 03/17/23 08:49 Dose: 1 mg Risperidone (Risperidone 2 Mg Tablet) 2 mg PO BEDTIME [facility] Last Admin: 03/16/23 22:46 Dose: 2 mg Trazodone HCl (Trazodone Hcl 50 Mg Tablet) 50 mg PO BEDTIME MRX1 PRN PRN Reason: Insomnia Last Admin: 03/16/23 22:46 Dose: 50 mg Vitamin D (Cholecalciferol (Vitamin D3) 25 Mcg Tablet) 25 mcg PO DAILY [facility] Last Admin: 03/17/23 08:49 Dose: 25 mcg Allergies Allergies Allergy/AdvReac Type Severity Reaction Status Date / Time No Known Allergies Allergy Verified 11/26/22 18:40 Assessment & Plan Assessment & Plan (1) Schizophrenia: Status: Acute Code(s): F20.9 - Schizophrenia, unspecified (2) PTSD (post-traumatic stress disorder): Status: Acute Code(s): F43.10 - Post-traumatic stress disorder, unspecified Plan Patient is a 67 year old female with hx of Schizophrenia and PTSD, who was recently on M5 in 11/2022, who [place] [facility] daughter d/t making two superficial lacerations over her left breast to harm herself, secondary to increased depression. Plan: CV 15 minute safety checks Continue home medications Obtain collateral Discharge planning 03/18/23- Continue current regime/plan. Pt has been asked to consider an antidepressant for negative sx. She declines at this time. Patient educated on: medication risk/benefits and therapeutic strategies Informed Consent: further education needed Reason for continued inpatient stay Substantial Risk for: rapid decompensation Time Spent With Patient Time: Total time managing care of this patient today ____ minutes.
[2023-03-17 18:00] VITALS: BP 135/64; PULSE 72; RESP 18; TEMP 36.9; O2SAT 98
[2023-03-17] MEDS: risperiDONE 2 MG TABLET PO (22:03)
[2023-03-17] MEDS: Atorvastatin Calcium 10 MG TABLET PO (22:03)
[2023-03-17] MEDS: traZODone HCL 50 MG TABLET PO (22:03)
[2023-03-17] MEDS: QUEtiapine Fumarate 50 MG TABLET PO (22:03)
[2023-03-18] MEDS: Metoprolol Tartrate 25 MG TABLET PO ×2 (08:49→20:58)
[2023-03-18] MEDS: Fenofibrate 160 MG TABLET PO (08:49)
[2023-03-18] MEDS: Cholecalciferol (Vitamin D3) 25 MCG TABLET PO (08:49)
[2023-03-18] MEDS: Benztropine Mesylate 0.5 MG TABLET PO ×2 (08:49→20:58)
[2023-03-18] MEDS: risperiDONE 1 MG TABLET PO (08:49)
[2023-03-18] MEDS: Carbidopa/Levodopa 25/100 TABLET 1 TAB PO ×2 (08:49→11:49)
[2023-03-18 08:51] VITALS: BP 124/63; PULSE 60; RESP 16; TEMP 36.7; O2SAT 97
--- NOTE | 2023-03-18 10:23 | P.PNPSI_ITS ---
Subjective Subjective Date of Service: 03/17/23 Reason For Visit: Crisis Interim History: Pt in bed resting, smiling, denies SI, HI, AH, VH. Sleep is adequate. Team report appetite is 50%. Discussed concern about how she will attend her appointments, as her room-mate usually drives her and will not be able to do this when he arrives home from rehab. We discussed some options including scheduled rides, telehealth options. Pt agrees that these would help. She asks to be considered for discharge when room-mate comes home and declines VNA assistance when discharged. Medication Compliance: Yes Side effects from medications: No Attending Groups: No Review of Systems Acute medical concerns: No Review of Systems Review of Systems Yes all other systems are reviewed and are negative (pt denies) Mental Status Exam Mental Status Exam Patient Appearance: Appropriate Patient Orientation: Person, Place, Time and Situation Level of Consciousness: Alert Patient Behavior: Talkative Mood Description: Anxious Affect Description: Constricted Patient Cognition Impaired: No Ability to Follow Directions: Good Speech Pattern: Spontaneous Speech Memory Description: Intact Hallucinations: None Delusions: Not Present Thought Process: Rumination Thought Content: positive for Perseveration and positive for Suicidal Ideation (denies) Depressive Symptoms: Increased Anxiety Judgement: Fair Diagnostics Vital Signs (24Hr): Vital Signs - 24 hr 03/17/23 18:00 03/18/23 08:51 Temperature 98.4 F 98.0 F Pulse Rate 72 60 Respiratory Rate 18 16 Blood Pressure 135/64 124/63 Pulse Oximetry 98 97 Oxygen Delivery Method Room Air Room Air BMI result Body Mass Index 19.9 Labs 03/14/23 17:50 03/16/23 09:05 Labs: Laboratory Results - last 48 hr 03/16/23 09:05 Sodium 145 Potassium 3.6 Chloride 110 H Carbon Dioxide 26 Anion Gap 13 BUN 24 H Creatinine 1.15 Estim Creat Clear Calc 40.0 Estimated GFR 47 Fasting Glucose 89 Calcium 11.1 H D Total Bilirubin 0.5 AST 17 ALT 14 Alkaline Phosphatase 36 L Total Protein 7.1 Albumin 4.2 Triglycerides 67 Cholesterol 130 LDL Cholesterol, Calc 71 HDL Cholesterol 46 Medications Medications Current Medications Acetaminophen (Acetaminophen 325 Mg Tablet) 650 mg PO Q6H PRN PRN Reason: Headache/Pain Mild Scale (1-3) Last Admin: 03/15/23 18:25 Dose: 650 mg Al Hydroxide/Mg Hydroxide (Magnesium Hydrox/Alum Hydrox 30 Ml Oral.Susp) 30 ml PO Q6H PRN PRN Reason: Heartburn/Nausea Atorvastatin Calcium (Atorvastatin Calcium 10 Mg Tablet) 10 mg PO BEDTIME [facility] Last Admin: 03/17/23 22:03 Dose: 10 mg Benztropine Mesylate (Benztropine Mesylate 0.5 Mg Tablet) 0.5 mg PO BID [facility] Last Admin: 03/18/23 08:49 Dose: 0.5 mg Carbidopa/Levodopa (Carbidopa/Levodopa 25/100 Tablet) 1 tab PO BID@0900,1200 [facility] Last Admin: 03/18/23 08:49 Dose: 1 tab Fenofibrate (Fenofibrate 160 Mg Tablet) 160 mg PO DAILY [facility] Last Admin: 03/18/23 08:49 Dose: 160 mg Hydroxyzine HCl (Hydroxyzine Hcl 25 Mg Tablet) 25 mg PO Q6H PRN PRN Reason: Anxiety Magnesium Hydroxide (Milk Of Magnesia 30 Ml Oral.Susp) 30 ml PO DAILY PRN PRN Reason: Constipation Metoprolol Tartrate (Metoprolol Tartrate 25 Mg Tablet) 25 mg PO BID [facility]; Protocol Last Admin: 03/18/23 08:49 Dose: 25 mg Quetiapine Fumarate (Quetiapine Fumarate 50 Mg Tablet) 50 mg PO BEDTIME [facility] Last Admin: 03/17/23 22:03 Dose: 50 mg Risperidone (Risperidone 1 Mg Tablet) 1 mg PO DAILY [facility] Last Admin: 03/18/23 08:49 Dose: 1 mg Risperidone (Risperidone 2 Mg Tablet) 2 mg PO BEDTIME [facility] Last Admin: 03/17/23 22:03 Dose: 2 mg Trazodone HCl (Trazodone Hcl 50 Mg Tablet) 50 mg PO BEDTIME MRX1 PRN PRN Reason: Insomnia Last Admin: 03/17/23 22:03 Dose: 50 mg Vitamin D (Cholecalciferol (Vitamin D3) 25 Mcg Tablet) 25 mcg PO DAILY [facility] Last Admin: 03/18/23 08:49 Dose: 25 mcg Allergies Allergies Allergy/AdvReac Type Severity Reaction Status Date / Time No Known Allergies Allergy Verified 11/26/22 18:40 Assessment & Plan Assessment & Plan (1) Schizophrenia: Status: Acute Code(s): F20.9 - Schizophrenia, unspecified (2) PTSD (post-traumatic stress disorder): Status: Acute Code(s): F43.10 - Post-traumatic stress disorder, unspecified Plan Patient is a 67 year old female with hx of Schizophrenia and PTSD, who was recently on M5 in 11/2022, who was brought into [facility] [facility] by her daughter d/t making two superficial lacerations over her left breast to harm herself, secondary to increased depression. Plan: CV 15 minute safety checks Continue home medications Obtain collateral Discharge planning 03/18/23- Pt denies antidepressant trial. She declines a change from Risperdal to perphenazine Patient educated on: medication risk/benefits Informed Consent: further education needed Reason for continued inpatient stay Substantial Risk for: rapid decompensation Time Spent With Patient Time: Total time managing care of this patient today ____ minutes.
[2023-03-18 19:14] VITALS: BP 127/63; PULSE 78; TEMP 36.9; O2SAT 96
[2023-03-18] MEDS: traZODone HCL 50 MG TABLET PO (20:58)
[2023-03-18] MEDS: Atorvastatin Calcium 10 MG TABLET PO (20:58)
[2023-03-18] MEDS: risperiDONE 2 MG TABLET PO (20:58)
[2023-03-18] MEDS: QUEtiapine Fumarate 50 MG TABLET PO (20:58)
[2023-03-19] MEDS: Metoprolol Tartrate 25 MG TABLET PO ×2 (08:55→20:41)
[2023-03-19] MEDS: Cholecalciferol (Vitamin D3) 25 MCG TABLET PO (08:55)
[2023-03-19] MEDS: Fenofibrate 160 MG TABLET PO (08:55)
[2023-03-19] MEDS: Benztropine Mesylate 0.5 MG TABLET PO ×2 (08:55→20:41)
[2023-03-19] MEDS: Carbidopa/Levodopa 25/100 TABLET 1 TAB PO ×2 (08:55→12:25)
[2023-03-19] MEDS: risperiDONE 1 MG TABLET PO (08:55)
[2023-03-19 09:04] VITALS: BP 118/64; PULSE 73; RESP 16; TEMP 36.9; O2SAT 97
--- NOTE | 2023-03-19 10:04 | P.PNPSI_ITS ---
Subjective Subjective Date of Service: 03/19/23 Reason For Visit: Crisis Interim History: Patient cooperative with treatment appears to be increasingly stabilizing Medication Compliance: Yes Side effects from medications: No Attending Groups: No Review of Systems Acute medical concerns: No Mental Status Exam Mental Status Exam Patient Appearance: Appropriate Patient Orientation: Person, Place, Time and Situation Level of Consciousness: Alert Patient Behavior: Talkative Mood Description: Anxious Affect Description: Constricted Patient Cognition Impaired: No Ability to Follow Directions: Good Speech Pattern: Spontaneous Speech Memory Description: Intact Hallucinations: None Delusions: Not Present Thought Process: Rumination Thought Content: positive for Perseveration and positive for Suicidal Ideation (denies) Depressive Symptoms: Increased Anxiety Judgement: Fair Diagnostics Vital Signs (24Hr): Vital Signs - 24 hr 03/18/23 19:14 03/19/23 09:04 Temperature 98.4 F 98.4 F Pulse Rate 78 73 Respiratory Rate 16 Blood Pressure 127/63 118/64 Pulse Oximetry 96 97 Oxygen Delivery Method Room Air Room Air BMI result Body Mass Index 19.9 Labs 03/14/23 17:50 03/16/23 09:05 Medications Medications Current Medications Acetaminophen (Acetaminophen 325 Mg Tablet) 650 mg PO Q6H PRN PRN Reason: Headache/Pain Mild Scale (1-3) Last Admin: 03/15/23 18:25 Dose: 650 mg Al Hydroxide/Mg Hydroxide (Magnesium Hydrox/Alum Hydrox 30 Ml Oral.Susp) 30 ml PO Q6H PRN PRN Reason: Heartburn/Nausea Atorvastatin Calcium (Atorvastatin Calcium 10 Mg Tablet) 10 mg PO BEDTIME [facility] Last Admin: 03/18/23 20:58 Dose: 10 mg Benztropine Mesylate (Benztropine Mesylate 0.5 Mg Tablet) 0.5 mg PO BID [facility] Last Admin: 03/19/23 08:55 Dose: 0.5 mg Carbidopa/Levodopa (Carbidopa/Levodopa 25/100 Tablet) 1 tab PO BID@0900,1200 [facility] Last Admin: 03/19/23 08:55 Dose: 1 tab Fenofibrate (Fenofibrate 160 Mg Tablet) 160 mg PO DAILY [facility] Last Admin: 03/19/23 08:55 Dose: 160 mg Hydroxyzine HCl (Hydroxyzine Hcl 25 Mg Tablet) 25 mg PO Q6H PRN PRN Reason: Anxiety Magnesium Hydroxide (Milk Of Magnesia 30 Ml Oral.Susp) 30 ml PO DAILY PRN PRN Reason: Constipation Metoprolol Tartrate (Metoprolol Tartrate 25 Mg Tablet) 25 mg PO BID [facility]; Protocol Last Admin: 03/19/23 08:55 Dose: 25 mg Quetiapine Fumarate (Quetiapine Fumarate 50 Mg Tablet) 50 mg PO BEDTIME [facility] Last Admin: 03/18/23 20:58 Dose: 50 mg Risperidone (Risperidone 1 Mg Tablet) 1 mg PO DAILY [facility] Last Admin: 03/19/23 08:55 Dose: 1 mg Risperidone (Risperidone 2 Mg Tablet) 2 mg PO BEDTIME [facility] Last Admin: 03/18/23 20:58 Dose: 2 mg Trazodone HCl (Trazodone Hcl 50 Mg Tablet) 50 mg PO BEDTIME MRX1 PRN PRN Reason: Insomnia Last Admin: 03/18/23 20:58 Dose: 50 mg Vitamin D (Cholecalciferol (Vitamin D3) 25 Mcg Tablet) 25 mcg PO DAILY [facility] Last Admin: 03/19/23 08:55 Dose: 25 mcg Allergies Allergies Allergy/AdvReac Type Severity Reaction Status Date / Time No Known Allergies Allergy Verified 11/26/22 18:40 Assessment & Plan Assessment & Plan (1) Schizophrenia: Status: Acute Code(s): F20.9 - Schizophrenia, unspecified (2) PTSD (post-traumatic stress disorder): Status: Acute Code(s): F43.10 - Post-traumatic stress disorder, unspecified Plan Patient is a 67 year old female with hx of Schizophrenia and PTSD, who was recently on M5 in 11/2022, who was brought into [facility] [place] [place] [facility] by her daughter d/t making two superficial lacerations over her left breast to harm herself, secondary to increased depression. Plan: CV 15 minute safety checks Continue home medications Obtain collateral Discharge planning 03/18/23- Pt denies antidepressant trial. She declines a change from Risperdal to perphenazine 03/19/2023 Continue plan of care Patient educated on: medication risk/benefits Informed Consent: further education needed Reason for continued inpatient stay Substantial Risk for: rapid decompensation Time Spent With Patient Time: Total time managing care of this patient today ____ minutes.
[2023-03-19 18:00] VITALS: BP 121/68; PULSE 77; RESP 16; TEMP 37; O2SAT 100
[2023-03-19] MEDS: Atorvastatin Calcium 10 MG TABLET PO (20:40)
[2023-03-19] MEDS: QUEtiapine Fumarate 50 MG TABLET PO (20:40)
[2023-03-19] MEDS: traZODone HCL 50 MG TABLET PO (20:40)
[2023-03-19] MEDS: risperiDONE 2 MG TABLET PO (20:40)
[2023-03-20 06:00] VITALS: BP 103/61; PULSE 71; TEMP 37.1; O2SAT 97
[2023-03-20] MEDS: Fenofibrate 160 MG TABLET PO (08:55)
[2023-03-20] MEDS: Cholecalciferol (Vitamin D3) 25 MCG TABLET PO (08:55)
[2023-03-20] MEDS: Carbidopa/Levodopa 25/100 TABLET 1 TAB PO ×2 (08:55→14:04)
[2023-03-20] MEDS: Metoprolol Tartrate 25 MG TABLET PO ×2 (08:55→20:34)
[2023-03-20] MEDS: Benztropine Mesylate 0.5 MG TABLET PO ×2 (08:55→20:34)
[2023-03-20] MEDS: risperiDONE 1 MG TABLET PO (08:55)
[2023-03-20 19:30] VITALS: BP 95/55; PULSE 77; RESP 18; TEMP 36.6; O2SAT 97
[2023-03-20] MEDS: risperiDONE 2 MG TABLET PO (20:34)
[2023-03-20] MEDS: Atorvastatin Calcium 10 MG TABLET PO (20:34)
[2023-03-20] MEDS: QUEtiapine Fumarate 50 MG TABLET PO (20:34)
--- NOTE | 2023-03-20 23:58 | P.PNPSI_ITS ---
Subjective Subjective Date of Service: 03/20/23 Reason For Visit: Crisis Interim History: The patient somewhat less withdrawn cooperative more alert Mental Status Exam Mental Status Exam Patient Appearance: Appropriate Patient Orientation: Person, Place, Time and Situation Level of Consciousness: Alert Patient Behavior: Talkative Mood Description: Anxious Affect Description: Constricted Patient Cognition Impaired: No Ability to Follow Directions: Good Speech Pattern: Spontaneous Speech Memory Description: Intact Hallucinations: None Delusions: Not Present Thought Process: Rumination Thought Content: positive for Perseveration and positive for Suicidal Ideation (denies) Depressive Symptoms: Increased Anxiety Judgement: Fair Diagnostics Vital Signs (24Hr): Vital Signs - 24 hr 03/20/23 06:00 03/20/23 19:30 Temperature 98.8 F 97.9 F Pulse Rate 71 77 Respiratory Rate 18 Blood Pressure 103/61 95/55 L Pulse Oximetry 97 97 Oxygen Delivery Method Room Air Room Air BMI result Body Mass Index 19.9 Labs 03/14/23 17:50 03/16/23 09:05 Medications Medications Current Medications Acetaminophen (Acetaminophen 325 Mg Tablet) 650 mg PO Q6H PRN PRN Reason: Headache/Pain Mild Scale (1-3) Last Admin: 03/15/23 18:25 Dose: 650 mg Al Hydroxide/Mg Hydroxide (Magnesium Hydrox/Alum Hydrox 30 Ml Oral.Susp) 30 ml PO Q6H PRN PRN Reason: Heartburn/Nausea Atorvastatin Calcium (Atorvastatin Calcium 10 Mg Tablet) 10 mg PO BEDTIME [facility] Last Admin: 03/20/23 20:34 Dose: 10 mg Benztropine Mesylate (Benztropine Mesylate 0.5 Mg Tablet) 0.5 mg PO BID [facility] Last Admin: 03/20/23 20:34 Dose: 0.5 mg Carbidopa/Levodopa (Carbidopa/Levodopa 25/100 Tablet) 1 tab PO BID@0900,1200 [facility] Last Admin: 03/20/23 14:04 Dose: 1 tab Fenofibrate (Fenofibrate 160 Mg Tablet) 160 mg PO DAILY [facility] Last Admin: 03/20/23 08:55 Dose: 160 mg Hydroxyzine HCl (Hydroxyzine Hcl 25 Mg Tablet) 25 mg PO Q6H PRN PRN Reason: Anxiety Magnesium Hydroxide (Milk Of Magnesia 30 Ml Oral.Susp) 30 ml PO DAILY PRN PRN Reason: Constipation Metoprolol Tartrate (Metoprolol Tartrate 25 Mg Tablet) 25 mg PO BID [facility]; Protocol Last Admin: 03/20/23 20:34 Dose: 25 mg Quetiapine Fumarate (Quetiapine Fumarate 50 Mg Tablet) 50 mg PO BEDTIME [facility] Last Admin: 03/20/23 20:34 Dose: 50 mg Risperidone (Risperidone 1 Mg Tablet) 1 mg PO DAILY [facility] Last Admin: 03/20/23 08:55 Dose: 1 mg Risperidone (Risperidone 2 Mg Tablet) 2 mg PO BEDTIME [facility] Last Admin: 03/20/23 20:34 Dose: 2 mg Trazodone HCl (Trazodone Hcl 50 Mg Tablet) 50 mg PO BEDTIME MRX1 PRN PRN Reason: Insomnia Last Admin: 03/19/23 20:40 Dose: 50 mg Vitamin D (Cholecalciferol (Vitamin D3) 25 Mcg Tablet) 25 mcg PO DAILY [facility] Last Admin: 03/20/23 08:55 Dose: 25 mcg Allergies Allergies Allergy/AdvReac Type Severity Reaction Status Date / Time No Known Allergies Allergy Verified 11/26/22 18:40 Assessment & Plan Assessment & Plan (1) Schizophrenia: Status: Acute Code(s): F20.9 - Schizophrenia, unspecified (2) PTSD (post-traumatic stress disorder): Status: Acute Code(s): F43.10 - Post-traumatic stress disorder, unspecified Plan Patient is a 67 year old female with hx of Schizophrenia and PTSD, who was recently on M5 in 11/2022, who was brought into [facility] by her daughter d/t making two superficial lacerations over her left breast to harm herself, secondary to increased depression. Plan: CV 15 minute safety checks Continue home medications Obtain collateral Discharge planning 03/18/23- Pt denies antidepressant trial. She declines a change from Risperdal to perphenazine 03/19/2023 Continue plan of care 03/20/2023 Continue plan of care patient showing improvement Reason for continued inpatient stay Substantial Risk for: inability to function and rapid decompensation Time Spent With Patient Time: Total time managing care of this patient today ____ minutes.
[2023-03-21] MEDS: risperiDONE 1 MG TABLET PO (09:02)
[2023-03-21] MEDS: Cholecalciferol (Vitamin D3) 25 MCG TABLET PO (09:02)
[2023-03-21] MEDS: Fenofibrate 160 MG TABLET PO (09:02)
[2023-03-21] MEDS: Metoprolol Tartrate 25 MG TABLET PO ×2 (09:02→20:06)
[2023-03-21] MEDS: Benztropine Mesylate 0.5 MG TABLET PO ×2 (09:03→20:07)
[2023-03-21] MEDS: Carbidopa/Levodopa 25/100 TABLET 1 TAB PO ×2 (09:03→11:37)
[2023-03-21 09:08] VITALS: BP 102/61; PULSE 89; RESP 16; TEMP 36.4; O2SAT 97
--- NOTE | 2023-03-21 10:28 | P.PNPSI_ITS ---
Subjective Subjective Date of Service: 03/21/23 Reason For Visit: Crisis Subjective Notes: Conditional Voluntary Interim History: Patient continues to show gradual improvement smith affect out of bed more somewhat social Mental Status Exam Mental Status Exam Patient Appearance: Appropriate Patient Orientation: Person, Place, Time and Situation Level of Consciousness: Alert Patient Behavior: Talkative Mood Description: Anxious Affect Description: Constricted Patient Cognition Impaired: No Ability to Follow Directions: Good Speech Pattern: Spontaneous Speech Memory Description: Intact Hallucinations: None Delusions: Not Present Thought Process: Intact and Rumination Thought Content: positive for [place] and positive for Poverty of Content Depressive Symptoms: Increased Anxiety Judgement: Fair Diagnostics Vital Signs (24Hr): Vital Signs - 24 hr 03/20/23 19:30 03/21/23 09:08 Temperature 97.9 F 97.6 F Pulse Rate 77 89 Respiratory Rate 18 16 Blood Pressure 95/55 L 102/61 Pulse Oximetry 97 97 Oxygen Delivery Method Room Air Room Air BMI result Body Mass Index 19.9 Labs 03/14/23 17:50 03/16/23 09:05 Medications Medications Current Medications Acetaminophen (Acetaminophen 325 Mg Tablet) 650 mg PO Q6H PRN PRN Reason: Headache/Pain Mild Scale (1-3) Last Admin: 03/15/23 18:25 Dose: 650 mg Al Hydroxide/Mg Hydroxide (Magnesium Hydrox/Alum Hydrox 30 Ml Oral.Susp) 30 ml PO Q6H PRN PRN Reason: Heartburn/Nausea Atorvastatin Calcium (Atorvastatin Calcium 10 Mg Tablet) 10 mg PO BEDTIME [facility] Last Admin: 03/20/23 20:34 Dose: 10 mg Benztropine Mesylate (Benztropine Mesylate 0.5 Mg Tablet) 0.5 mg PO BID [facility] Last Admin: 03/21/23 09:03 Dose: 0.5 mg Carbidopa/Levodopa (Carbidopa/Levodopa 25/100 Tablet) 1 tab PO BID@0900,1200 [facility] Last Admin: 03/21/23 09:03 Dose: 1 tab Fenofibrate (Fenofibrate 160 Mg Tablet) 160 mg PO DAILY [facility] Last Admin: 03/21/23 09:02 Dose: 160 mg Hydroxyzine HCl (Hydroxyzine Hcl 25 Mg Tablet) 25 mg PO Q6H PRN PRN Reason: Anxiety Magnesium Hydroxide (Milk Of Magnesia 30 Ml Oral.Susp) 30 ml PO DAILY PRN PRN Reason: Constipation Metoprolol Tartrate (Metoprolol Tartrate 25 Mg Tablet) 25 mg PO BID [facility]; Protocol Last Admin: 03/21/23 09:02 Dose: 25 mg Quetiapine Fumarate (Quetiapine Fumarate 50 Mg Tablet) 50 mg PO BEDTIME [facility] Last Admin: 03/20/23 20:34 Dose: 50 mg Risperidone (Risperidone 1 Mg Tablet) 1 mg PO DAILY [facility] Last Admin: 03/21/23 09:02 Dose: 1 mg Risperidone (Risperidone 2 Mg Tablet) 2 mg PO BEDTIME [facility] Last Admin: 03/20/23 20:34 Dose: 2 mg Trazodone HCl (Trazodone Hcl 50 Mg Tablet) 50 mg PO BEDTIME [facility] PRN PRN Reason: Insomnia Last Admin: 03/19/23 20:40 Dose: 50 mg Vitamin D (Cholecalciferol (Vitamin D3) 25 Mcg Tablet) 25 mcg PO DAILY [facility] Last Admin: 03/21/23 09:02 Dose: 25 mcg Allergies Allergies Allergy/AdvReac Type Severity Reaction Status Date / Time No Known Allergies Allergy Verified 11/26/22 18:40 Assessment & Plan Assessment & Plan (1) Schizophrenia: Status: Acute Code(s): F20.9 - Schizophrenia, unspecified (2) PTSD (post-traumatic stress disorder): Status: Acute Code(s): F43.10 - Post-traumatic stress disorder, unspecified Plan Patient is a 67 year old female with hx of Schizophrenia and PTSD, who was recently on M5 in 11/2022, who was brought into [facility] [place] [facility] by her daughter d/t making two superficial lacerations over her left breast to harm herself, secondary to increased depression. Plan: CV 15 minute safety checks Continue home medications Obtain collateral Discharge planning 03/18/23- Pt denies antidepressant trial. She declines a change from Risperdal to perphenazine 03/19/2023 Continue plan of care 03/21/2023 Continue plan of care showing improvement no self-harm future oriented Reason for continued inpatient stay Substantial Risk for: harm to self, rapid decompensation and med/psych decompensation Time Spent With Patient Time: Total time managing care of this patient today ____ minutes.
[2023-03-21 18:00] VITALS: BP 105/67; PULSE 78; RESP 17; TEMP 36.7; O2SAT 98
[2023-03-21] MEDS: risperiDONE 2 MG TABLET PO (20:06)
[2023-03-21] MEDS: Atorvastatin Calcium 10 MG TABLET PO (20:07)
[2023-03-21] MEDS: QUEtiapine Fumarate 50 MG TABLET PO (20:07)
[2023-03-22 07:13] VITALS: BP 129/60; PULSE 73; RESP 16; TEMP 36.9; O2SAT 97
[2023-03-22] MEDS: Benztropine Mesylate 0.5 MG TABLET PO ×2 (08:07→21:08)
[2023-03-22] MEDS: Carbidopa/Levodopa 25/100 TABLET 1 TAB PO ×2 (08:07→11:30)
[2023-03-22] MEDS: Fenofibrate 160 MG TABLET PO (08:07)
[2023-03-22] MEDS: Metoprolol Tartrate 25 MG TABLET PO ×2 (08:07→21:09)
[2023-03-22] MEDS: risperiDONE 1 MG TABLET PO (08:07)
[2023-03-22] MEDS: Cholecalciferol (Vitamin D3) 25 MCG TABLET PO (08:07)
--- NOTE | 2023-03-22 16:07 | HO.PSYCHPN ---
Subjective Subjective Date of Service: 03/22/23 Reason For Visit: Crisis Subjective Notes: Conditional Voluntary Healthcare Proxy: No Guardianship: No Medical Problems Affecting Mental Status: No Interim History: Team report pt continues to improve, she is able to sleep and she rates depression/anxiety 3/3. Discussed discharge with pt. She is hoping her room-mate will return home before she does. We discussed possibly a discharge for Tuesday or Tuesday. Team has scheduled discharge for Tuesday. She denies current symptoms today, is visable in the milieu and is interactive with team and peers. Medication Compliance: Yes Side effects from medications: No Attending Groups: Intermittent Review of Systems Acute medical concerns: No Medical Review of Systems: unchanged Review of Systems Review of Systems Yes all other systems are reviewed and are negative (pt denies) Mental Status Exam Mental Status Exam Patient Appearance: Fatigued and Appropriate Patient Orientation: Person, Place, Time and Situation Level of Consciousness: Alert Patient Behavior: Talkative and Good Eye Contact Mood Description: Anxious and Apprehensive Affect Description: Anxious and Apprehensive Patient Cognition Impaired: No Ability to Follow Directions: Good Speech Pattern: Spontaneous Speech Memory Description: Episodic Impaired Hallucinations: None (denies) Delusions: Not Present (denies) Thought Process: Distracted Thought Content: positive for [place], positive for Circumstantial and positive for Suicidal Ideation (denies) Depressive Symptoms: Increased Anxiety and Thoughts of /Suicide (denies) Judgement: Fair Diagnostics Vital Signs (24Hr): Vital Signs - 24 hr 03/21/23 18:00 03/22/23 07:13 Temperature 98.0 F 98.5 F Pulse Rate 78 73 Respiratory Rate 17 16 Blood Pressure 105/67 129/60 Pulse Oximetry 98 97 Oxygen Delivery Method Room Air Room Air BMI result Body Mass Index 19.9 Labs 03/14/23 17:50 03/16/23 09:05 Medications Medications Current Medications Acetaminophen (Acetaminophen 325 Mg Tablet) 650 mg PO Q6H PRN PRN Reason: Headache/Pain Mild Scale (1-3) Last Admin: 03/15/23 18:25 Dose: 650 mg Al Hydroxide/Mg Hydroxide (Magnesium Hydrox/Alum Hydrox 30 Ml Oral.Susp) 30 ml PO Q6H PRN PRN Reason: Heartburn/Nausea Atorvastatin Calcium (Atorvastatin Calcium 10 Mg Tablet) 10 mg PO BEDTIME [facility] Last Admin: 03/21/23 20:07 Dose: 10 mg Benztropine Mesylate (Benztropine Mesylate 0.5 Mg Tablet) 0.5 mg PO BID [facility] Last Admin: 03/22/23 08:07 Dose: 0.5 mg Carbidopa/Levodopa (Carbidopa/Levodopa 25/100 Tablet) 1 tab PO BID@0900,1200 [facility] Last Admin: 03/22/23 11:30 Dose: 1 tab Fenofibrate (Fenofibrate 160 Mg Tablet) 160 mg PO DAILY [facility] Last Admin: 03/22/23 08:07 Dose: 160 mg Hydroxyzine HCl (Hydroxyzine Hcl 25 Mg Tablet) 25 mg PO Q6H PRN PRN Reason: Anxiety Magnesium Hydroxide (Milk Of Magnesia 30 Ml Oral.Susp) 30 ml PO DAILY PRN PRN Reason: Constipation Metoprolol Tartrate (Metoprolol Tartrate 25 Mg Tablet) 25 mg PO BID [facility]; Protocol Last Admin: 03/22/23 08:07 Dose: 25 mg Quetiapine Fumarate (Quetiapine Fumarate 50 Mg Tablet) 50 mg PO BEDTIME [facility] Last Admin: 03/21/23 20:07 Dose: 50 mg Risperidone (Risperidone 1 Mg Tablet) 1 mg PO DAILY [facility] Last Admin: 03/22/23 08:07 Dose: 1 mg Risperidone (Risperidone 2 Mg Tablet) 2 mg PO BEDTIME [facility] Last Admin: 03/21/23 20:06 Dose: 2 mg Trazodone HCl (Trazodone Hcl 50 Mg Tablet) 50 mg PO BEDTIME MRX1 PRN PRN Reason: Insomnia Last Admin: 03/19/23 20:40 Dose: 50 mg Vitamin D (Cholecalciferol (Vitamin D3) 25 Mcg Tablet) 25 mcg PO DAILY [facility] Last Admin: 03/22/23 08:07 Dose: 25 mcg Allergies Allergies Allergy/AdvReac Type Severity Reaction Status Date / Time No Known Allergies Allergy Verified 11/26/22 18:40 Assessment & Plan Assessment & Plan (1) Schizophrenia: Status: Acute Code(s): F20.9 - Schizophrenia, unspecified (2) PTSD (post-traumatic stress disorder): Status: Acute Code(s): F43.10 - Post-traumatic stress disorder, unspecified Plan Patient is a 67 year old female with hx of Schizophrenia and PTSD, who was recently on M5 in 11/2022, who was brought into [facility] ER by her daughter d/t making two superficial lacerations over her left breast to harm herself, secondary to increased depression. Plan: CV 15 minute safety checks Continue home medications Obtain collateral Discharge planning 03/18/23- Pt denies antidepressant trial. She declines a change from Risperdal to perphenazine 03/19/2023 Continue plan of care 03/21/2023 Continue plan of care showing improvement no self-harm future oriented 03/22/23 Continue current regime and plan, tentative discharge on 03/25. Patient educated on: therapeutic strategies Informed Consent: understands and further education needed Reason for continued inpatient stay Substantial Risk for: rapid decompensation Time Spent With Patient Time: Total time managing care of this patient today ____ minutes.
[2023-03-22 18:00] VITALS: BP 137/61; PULSE 100; RESP 18; TEMP 36.8; O2SAT 100
[2023-03-22] MEDS: Atorvastatin Calcium 10 MG TABLET PO (21:08)
[2023-03-22] MEDS: QUEtiapine Fumarate 50 MG TABLET PO (21:08)
[2023-03-22] MEDS: risperiDONE 2 MG TABLET PO (21:08)
[2023-03-23 08:31] VITALS: BP 118/70; PULSE 77; RESP 16; TEMP 36.9; O2SAT 97
[2023-03-23] MEDS: Metoprolol Tartrate 25 MG TABLET PO ×2 (08:36→20:39)
[2023-03-23] MEDS: Cholecalciferol (Vitamin D3) 25 MCG TABLET PO (08:36)
[2023-03-23] MEDS: Fenofibrate 160 MG TABLET PO (08:37)
[2023-03-23] MEDS: risperiDONE 1 MG TABLET PO (08:37)
[2023-03-23] MEDS: Carbidopa/Levodopa 25/100 TABLET 1 TAB PO ×2 (08:37→13:45)
[2023-03-23] MEDS: Benztropine Mesylate 0.5 MG TABLET PO ×2 (08:37→20:39)
--- NOTE | 2023-03-23 10:25 | P.PNPSI_ITS ---
Subjective Subjective Date of Service: 03/23/23 Reason For Visit: Crisis Subjective Notes: Conditional Voluntary Healthcare Proxy: No Guardianship: No Medical Problems Affecting Mental Status: No Interim History: Patient shows improvement out of bed more more engaged. She does describe multiple losses over the past year more that it been difficult for her she denies current SI cannot clearly describe what is shifted denies hallucinations no gross delusional material. Medication Compliance: Yes Side effects from medications: No Attending Groups: Intermittent Review of Systems Acute medical concerns: No Medical Review of Systems: unchanged Mental Status Exam Mental Status Exam Patient Appearance: Fatigued and Appropriate Patient Orientation: Person, Place, Time and Situation Level of Consciousness: Alert Patient Behavior: Talkative and Good Eye Contact Mood Description: Anxious and Apprehensive Affect Description: Anxious and Apprehensive Patient Cognition Impaired: No Ability to Follow Directions: Good Speech Pattern: Spontaneous Speech Memory Description: Episodic Impaired Hallucinations: None (denies) Delusions: Not Present (denies) Thought Process: Distracted Thought Content: positive for [place], positive for Circumstantial and positive for Suicidal Ideation (denies) Depressive Symptoms: Increased Anxiety and Thoughts of /Suicide (denies) Judgement: Fair Diagnostics Vital Signs (24Hr): Vital Signs - 24 hr 03/22/23 18:00 03/23/23 08:31 Temperature 98.2 F 98.4 F Pulse Rate 100 77 Respiratory Rate 18 16 Blood Pressure 137/61 118/70 Pulse Oximetry 100 97 Oxygen Delivery Method Room Air Room Air BMI result Body Mass Index 19.9 Labs 03/14/23 17:50 03/16/23 09:05 Medications Medications Current Medications Acetaminophen (Acetaminophen 325 Mg Tablet) 650 mg PO Q6H PRN PRN Reason: Headache/Pain Mild Scale (1-3) Last Admin: 03/15/23 18:25 Dose: 650 mg Al Hydroxide/Mg Hydroxide (Magnesium Hydrox/Alum Hydrox 30 Ml Oral.Susp) 30 ml PO Q6H PRN PRN Reason: Heartburn/Nausea Atorvastatin Calcium (Atorvastatin Calcium 10 Mg Tablet) 10 mg PO BEDTIME [facility] Last Admin: 03/22/23 21:08 Dose: 10 mg Benztropine Mesylate (Benztropine Mesylate 0.5 Mg Tablet) 0.5 mg PO BID [facility] Last Admin: 03/23/23 08:37 Dose: 0.5 mg Carbidopa/Levodopa (Carbidopa/Levodopa 25/100 Tablet) 1 tab PO BID@0900,1200 [facility] Last Admin: 03/23/23 08:37 Dose: 1 tab Fenofibrate (Fenofibrate 160 Mg Tablet) 160 mg PO DAILY [facility] Last Admin: 03/23/23 08:37 Dose: 160 mg Hydroxyzine HCl (Hydroxyzine Hcl 25 Mg Tablet) 25 mg PO Q6H PRN PRN Reason: Anxiety Magnesium Hydroxide (Milk Of Magnesia 30 Ml Oral.Susp) 30 ml PO DAILY PRN PRN Reason: Constipation Metoprolol Tartrate (Metoprolol Tartrate 25 Mg Tablet) 25 mg PO BID [facility]; Protocol Last Admin: 03/23/23 08:36 Dose: 25 mg Quetiapine Fumarate (Quetiapine Fumarate 50 Mg Tablet) 50 mg PO BEDTIME [facility] Last Admin: 03/22/23 21:08 Dose: 50 mg Risperidone (Risperidone 1 Mg Tablet) 1 mg PO DAILY [facility] Last Admin: 03/23/23 08:37 Dose: 1 mg Risperidone (Risperidone 2 Mg Tablet) 2 mg PO BEDTIME [facility] Last Admin: 03/22/23 21:08 Dose: 2 mg Trazodone HCl (Trazodone Hcl 50 Mg Tablet) 50 mg PO BEDTIME MRX1 PRN PRN Reason: Insomnia Last Admin: 03/19/23 20:40 Dose: 50 mg Vitamin D (Cholecalciferol (Vitamin D3) 25 Mcg Tablet) 25 mcg PO DAILY [facility] Last Admin: 03/23/23 08:36 Dose: 25 mcg Allergies Allergies Allergy/AdvReac Type Severity Reaction Status Date / Time No Known Allergies Allergy Verified 11/26/22 18:40 Assessment & Plan Assessment & Plan (1) Schizophrenia: Status: Acute Code(s): F20.9 - Schizophrenia, unspecified (2) PTSD (post-traumatic stress disorder): Status: Acute Code(s): F43.10 - Post-traumatic stress disorder, unspecified Plan Patient is a 67 year old female with hx of Schizophrenia and PTSD, who was recently on M5 in 11/2022, who was brought into [facility] by her daughter d/t making two superficial lacerations over her left breast to harm herself, secondary to increased depression. Plan: CV 15 minute safety checks Continue home medications Obtain collateral Discharge planning 03/18/23- Pt denies antidepressant trial. She declines a change from Risperdal to perphenazine 03/19/2023 Continue plan of care 03/21/2023 Continue plan of care showing improvement no self-harm future oriented 03/22/23 Continue current regime and plan, tentative discharge on 03/25. 03/23/2023 Continue plan of care discharge planning Reason for continued inpatient stay Substantial Risk for: harm to self and rapid decompensation Time Spent With Patient Time: Total time managing care of this patient today ____ minutes.
[2023-03-23 18:00] VITALS: BP 160/76; PULSE 80; RESP 18; TEMP 36.9; O2SAT 98
[2023-03-23] MEDS: risperiDONE 2 MG TABLET PO (20:39)
[2023-03-23] MEDS: Atorvastatin Calcium 10 MG TABLET PO (20:39)
[2023-03-23] MEDS: QUEtiapine Fumarate 50 MG TABLET PO (20:40)
[2023-03-24 06:00] VITALS: BP 118/65; PULSE 73; RESP 16; TEMP 36.9; O2SAT 99
[2023-03-24 07:00] VITALS: BMI 20.5
[2023-03-24] MEDS: Cholecalciferol (Vitamin D3) 25 MCG TABLET PO (08:42)
[2023-03-24] MEDS: Fenofibrate 160 MG TABLET PO (08:42)
[2023-03-24] MEDS: Metoprolol Tartrate 25 MG TABLET PO ×2 (08:42→21:04)
[2023-03-24] MEDS: Carbidopa/Levodopa 25/100 TABLET 1 TAB PO ×2 (08:43→12:03)
[2023-03-24] MEDS: risperiDONE 1 MG TABLET PO (08:43)
[2023-03-24] MEDS: Benztropine Mesylate 0.5 MG TABLET PO ×2 (08:43→21:04)
[2023-03-24 18:00] VITALS: BP 139/70; PULSE 85; RESP 16; TEMP 36.8; O2SAT 98
[2023-03-24] MEDS: risperiDONE 2 MG TABLET PO (21:04)
[2023-03-24] MEDS: Atorvastatin Calcium 10 MG TABLET PO (21:04)
[2023-03-24] MEDS: QUEtiapine Fumarate 50 MG TABLET PO (21:04)
--- NOTE | 2023-03-25 07:49 | HO.PSYCHPN ---
Subjective Subjective Date of Service: 03/24/23 Reason For Visit: Crisis Interim History: Discussed discharge with Melia. She has made contact with her room-mate. He continues in SNF/Rehab and has no firm discharge date as yet. Team has talked with family who agree with discharge for 03/25. Pt reports feeling well. She denies SI/HI/sx of psychosis/sx of depression. She is positive, smiling, interactive, initiates questions, discussion, social conversation. She agrees she is feeling better and ready to return to her home. Medication Compliance: Yes Side effects from medications: No Attending Groups: Intermittent Review of Systems Acute medical concerns: No Medical Review of Systems: unchanged Review of Systems Review of Systems Yes all other systems are reviewed and are negative (pt denies) Mental Status Exam Mental Status Exam Patient Appearance: Appropriate Patient Orientation: Person, Place, Time and Situation Level of Consciousness: Alert Patient Behavior: Talkative and Good Eye Contact Mood Description: Apprehensive Affect Description: Apprehensive Patient Cognition Impaired: No Ability to Follow Directions: Good Speech Pattern: Spontaneous Speech Memory Description: Episodic Impaired Hallucinations: None (denies) Delusions: Not Present (denies) Thought Process: Distracted Thought Content: positive for [place], positive for Circumstantial and positive for Suicidal Ideation (denies) Depressive Symptoms: Thoughts of /Suicide (denies) Judgement: Good Diagnostics Vital Signs (24Hr): Vital Signs - 24 hr 03/24/23 18:00 Temperature 98.2 F Pulse Rate 85 Respiratory Rate 16 Blood Pressure 139/70 Pulse Oximetry 98 Oxygen Delivery Method Room Air BMI result Body Mass Index 20.5 Labs 03/14/23 17:50 03/16/23 09:05 Medications Medications Current Medications Acetaminophen (Acetaminophen 325 Mg Tablet) 650 mg PO Q6H PRN PRN Reason: Headache/Pain Mild Scale (1-3) Last Admin: 03/15/23 18:25 Dose: 650 mg Al Hydroxide/Mg Hydroxide (Magnesium Hydrox/Alum Hydrox 30 Ml Oral.Susp) 30 ml PO Q6H PRN PRN Reason: Heartburn/Nausea Atorvastatin Calcium (Atorvastatin Calcium 10 Mg Tablet) 10 mg PO BEDTIME [facility] Last Admin: 03/24/23 21:04 Dose: 10 mg Benztropine Mesylate (Benztropine Mesylate 0.5 Mg Tablet) 0.5 mg PO BID [facility] Last Admin: 03/24/23 21:04 Dose: 0.5 mg Carbidopa/Levodopa (Carbidopa/Levodopa 25/100 Tablet) 1 tab PO BID@0900,1200 [facility] Last Admin: 03/24/23 12:03 Dose: 1 tab Fenofibrate (Fenofibrate 160 Mg Tablet) 160 mg PO DAILY [facility] Last Admin: 03/24/23 08:42 Dose: 160 mg Hydroxyzine HCl (Hydroxyzine Hcl 25 Mg Tablet) 25 mg PO Q6H PRN PRN Reason: Anxiety Magnesium Hydroxide (Milk Of Magnesia 30 Ml Oral.Susp) 30 ml PO DAILY PRN PRN Reason: Constipation Metoprolol Tartrate (Metoprolol Tartrate 25 Mg Tablet) 25 mg PO BID [facility]; Protocol Last Admin: 03/24/23 21:04 Dose: 25 mg Quetiapine Fumarate (Quetiapine Fumarate 50 Mg Tablet) 50 mg PO BEDTIME [facility] Last Admin: 03/24/23 21:04 Dose: 50 mg Risperidone (Risperidone 1 Mg Tablet) 1 mg PO DAILY [facility] Last Admin: 03/24/23 08:43 Dose: 1 mg Risperidone (Risperidone 2 Mg Tablet) 2 mg PO BEDTIME [facility] Last Admin: 03/24/23 21:04 Dose: 2 mg Trazodone HCl (Trazodone Hcl 50 Mg Tablet) 50 mg PO BEDTIME MRX1 PRN PRN Reason: Insomnia Last Admin: 03/19/23 20:40 Dose: 50 mg Vitamin D (Cholecalciferol (Vitamin D3) 25 Mcg Tablet) 25 mcg PO DAILY [facility] Last Admin: 03/24/23 08:42 Dose: 25 mcg Allergies Allergies Allergy/AdvReac Type Severity Reaction Status Date / Time No Known Allergies Allergy Verified 11/26/22 18:40 Assessment & Plan Assessment & Plan (1) Schizophrenia: Status: Acute Code(s): F20.9 - Schizophrenia, unspecified (2) PTSD (post-traumatic stress disorder): Status: Acute Code(s): F43.10 - Post-traumatic stress disorder, unspecified Plan Patient is a 67 year old female with hx of Schizophrenia and PTSD, who was recently on M5 in 11/2022, who was brought into [facility] ER by her daughter d/t making two superficial lacerations over her left breast to harm herself, secondary to increased depression. Plan: CV 15 minute safety checks Continue home medications Obtain collateral Discharge planning 03/18/23- Pt denies antidepressant trial. She declines a change from Risperdal to perphenazine 03/19/2023 Continue plan of care 03/21/2023 Continue plan of care showing improvement no self-harm future oriented 03/22/23 Continue current regime and plan, tentative discharge on 03/25. 03/23/2023 Continue plan of care discharge planning 03/24/23 Discharge 03/25. Patient educated on: therapeutic strategies Informed Consent: understands Reason for continued inpatient stay Substantial Risk for: stable for discharge Time Spent With Patient Time: Total time managing care of this patient today ____ minutes.
[2023-03-25] MEDS: Cholecalciferol (Vitamin D3) 25 MCG TABLET PO (10:08)
[2023-03-25] MEDS: Fenofibrate 160 MG TABLET PO (10:08)
[2023-03-25] MEDS: Benztropine Mesylate 0.5 MG TABLET PO (10:09)
[2023-03-25] MEDS: risperiDONE 1 MG TABLET PO (10:09)
[2023-03-25] MEDS: Metoprolol Tartrate 25 MG TABLET PO (10:09)
[2023-03-25] MEDS: Carbidopa/Levodopa 25/100 TABLET 1 TAB PO (10:09)
[2023-03-25 10:14] VITALS: BP 142/73; PULSE 82; RESP 18; TEMP 36.9; O2SAT 98
--- NOTE | 2023-03-25 16:20 | P.DS_ITS ---
DS: Providers Provider Date of Service: 03/25/23 Date of admission: 03/15/23 15:32 Date of discharge: 03/25/23 Primary care physician: Luciana Winters MD Admitting clinician: Corina Banks Attending physician on admission: Ivan Engel Attending physician on discharge: Ivan Engel Discharging clinician: Radha Pratt DS: Diagnosis Discharge Diagnosis (1) Schizophrenia: Status: Acute (2) PTSD (post-traumatic stress disorder): Status: Acute DS: Medications Discharge Medications Home Medications: Home Medications Medication Instructions Recorded Confirmed alendronate 70 mg tablet 70 mg PO QWEEK 11/26/22 03/14/23 fenofibrate 160 mg tablet 160 mg PO DAILY 11/27/22 03/14/23 simvastatin 20 mg tablet 20 mg PO BEDTIME 11/27/22 03/14/23 carbidopa 25 mg-levodopa 100 mg 1 tab PO BID@0900,1200 12/31/22 03/14/23 tablet cholecalciferol (vitamin D3) 25 25 mcg PO DAILY 12/31/22 03/14/23 mcg (1,000 unit) tablet Previous Rx's Medication Instructions Recorded benztropine 0.5 mg tablet 0.5 mg PO BID 30 days #60 tabs 12/09/22 metoprolol tartrate 25 mg tablet 25 mg PO BID 30 days #60 tabs 12/09/22 quetiapine 50 mg tablet (Seroquel) 50 mg PO BEDTIME 30 days #30 tabs 12/09/22 risperidone 1 mg tablet (Risperdal) 1 mg PO DAILY 30 days #30 tabs 12/09/22 risperidone 2 mg tablet (Risperdal) 2 mg PO BEDTIME 30 days #30 tabs 12/09/22 Mental Status Exam Mental Status Exam Patient Appearance: Appropriate Patient Orientation: Person, Place, Time and Situation Level of Consciousness: Alert Patient Behavior: Talkative and Good Eye Contact Mood Description: Apprehensive Affect Description: Apprehensive Patient Cognition Impaired: No Ability to Follow Directions: Good Speech Pattern: Spontaneous Speech Memory Description: Episodic Impaired Hallucinations: None (denies) Delusions: Not Present (denies) Thought Process: Distracted Thought Content: positive for [place], positive for Circumstantial and positive for Suicidal Ideation (denies) Depressive Symptoms: Thoughts of /Suicide (denies) Judgement: Good Data Data Completed and Pending Completed studies during hospitalization [Text1]: 03/14/23 Unknown Urine clean catch - Urine cuadra top Urine Culture - Final DS: Summary Hospital Course Hospital Course: Admission to adult psychiatry for exacerbation of PTSD, Schizophrenia. Pt reported increase symptoms of depression, SIBS to decrease symptoms. This is a difficult time of year for pt due to losses of sister, daughter and partner. Medications were evaluated and adjusted. Pt utilized some of the milieu offerings for support. She is discharged to continue out patient care with [facility] Team. Status at Discharge Functional status at discharge: independent ambulation Overall status at discharge: patient is back to baseline Time Spent with Patient Time attestation: Total time managing care of this patient today ____ minutes. Time spent: Greater than 30 minutes Discharge Plan Discharge Anticipated Discharge Date/Time: 03/25/23 12:00 Patient Disposition: Home, Self-Care Discharge Diagnosis: PTSD Schizophrenia Referrals: Psych Prescriber: Loree Noguera ([facility]) [Other] - 04/05/23 1:00 pm (Appointment is in person at the office ) Therapy: Ford Yanez ([facility] [[facility] [Other] - 1 Week (Ford will call you to schedule your next appointment ) Lucinaa Winters MD [Primary Care Provider] - 1 Week (pt.declined to let us contact her PCP, please follow up.) Discharge Medications: Continued alendronate 70 mg tablet 70 mg PO QWEEK Rx Instructions: PT takes on Fridays simvastatin 20 mg tablet 20 mg PO BEDTIME fenofibrate 160 mg tablet 160 mg PO DAILY risperidone [Risperdal] 1 mg tablet 1 mg PO DAILY 30 Days Qty: 30 0RF risperidone [Risperdal] 2 mg tablet 2 mg PO BEDTIME 30 Days Qty: 30 0RF benztropine 0.5 mg tablet 0.5 mg PO BID 30 Days Qty: 60 0RF metoprolol tartrate 25 mg tablet 25 mg PO BID 30 Days Qty: 60 0RF quetiapine [Seroquel] 50 mg tablet 50 mg PO BEDTIME 30 Days Qty: 30 0RF carbidopa-levodopa 25-100 mg tablet 1 tab PO BID@0900,1200 Rx Instructions: Take one tab by mouth in the AM and at Noon cholecalciferol (vitamin D3) 25 mcg (1,000 unit) Tablet 25 mcg PO DAILY Discharge Orders: Discharge Order (Routine); Ordered 03/25/23 Ordered By: Radha Pratt Diet: Advance to usual diet Activity on Discharge: As tolerated Stand Alone Forms: Patient Portal Discharge page, Community Support Care Plan Goals: Mood and Behavioral Stabilization Health Concerns: Mood and Behavioral Stabilization Plan of Treatment: Attend scheduled appointments Take medications as directed Assessment: Scheduled discharge Discharge Date/Time: 03/25/23 11:43
== END 2023-03-25 11:43 | disposition home or self-care (01) | DRG 885 ==
LOC: HO.ED 03-15 13:45 → HO.PM5 03-15 15:52
PROVIDERS: Admitting Provider Registered Nurse; Emergency Provider Internal Medicine; PCP Family Medicine; Visit Provider Clinical Nurse Specialist Psychiatric/Mental Health, Adult
DX: F20.9 Schizophrenia, unspecified (principal); R45.851 Suicidal ideations; F43.10 Post-traumatic stress disorder, unspecified; Z91.52 Personal history of nonsuicidal self-harm; Z20.822 Contact with and (suspected) exposure to COVID-19; Z79.899 Other long term (current) drug therapy
CPT/HCPCS: 36415; 80053; 80061; 80143; 80179; 80307; 81001; 85025; 87086; 87635; 93005; 99284; S9485

== ENCOUNTER → 2023-03-15 12:45 | Outpatient (BNV) | payer MEDICARE, MEDICAID, SELFPAY | PROVIDERS: Admitting Provider Registered Nurse; Emergency Provider Internal Medicine; PCP Family Medicine; Visit Provider Internal Medicine Cardiovascular Disease | DX: R00.1 Bradycardia, unspecified (principal) | CPT/HCPCS: 93010 ==

== ENCOUNTER → 2023-03-15 15:32 | Outpatient (BNV) | payer MEDICARE, MEDICAID, SELFPAY | PROVIDERS: Admitting Provider Registered Nurse; Emergency Provider Internal Medicine; PCP Family Medicine; Visit Provider Psychiatry & Neurology Psychiatry | DX: F20.9 Schizophrenia, unspecified (principal); F43.11 Post-traumatic stress disorder, acute | CPT/HCPCS: 99231; 99238 ==

== ENCOUNTER → 2023-03-15 15:32 | Outpatient (BNV) | payer MEDICARE, MEDICAID, SELFPAY | PROVIDERS: Admitting Provider Registered Nurse; Emergency Provider Internal Medicine; PCP Family Medicine; Visit Provider Registered Nurse | DX: F20.89 Other schizophrenia (principal); F43.11 Post-traumatic stress disorder, acute | CPT/HCPCS: 90792; 99231; 99232; 99499 ==

== ENCOUNTER 2023-06-10 16:10 | Emergency (ER) | payer MEDICARE, MEDICAID, SELFPAY ==
--- NOTE | 2023-06-10 16:28 | ED.SKABFB ---
HPI - Skin/Abscess/Foreign Bdy General Chief complaint: General Medical Stated complaint: ?Infected finger Time Seen by Provider: 06/10/23 16:32 Source: patient Mode of arrival: ambulatory Limitations: no limitations History of Present Illness HPI narrative: Patient is a 67-year-old female who presents to the emergency department for evaluation. She reports recently she was biting her nail she typically does due to nerves. Before she realized that she had but not nearly the entire nail to the right 3rd digit. She denies any pain currently. Denies any fevers, chills, pus drainage. She is concerned because the nail border is becoming red and slightly swollen. At this time she feels that her anxiety is well controlled. Related Data Home Medications Medication Instructions Recorded Confirmed alendronate 70 mg tablet 70 mg PO QWEEK 11/26/22 03/14/23 fenofibrate 160 mg tablet 160 mg PO DAILY 11/27/22 03/14/23 simvastatin 20 mg tablet 20 mg PO BEDTIME 11/27/22 03/14/23 carbidopa 25 mg-levodopa 100 mg 1 tab PO BID@0900,1200 12/31/22 03/14/23 tablet cholecalciferol (vitamin D3) 25 25 mcg PO DAILY 12/31/22 03/14/23 mcg (1,000 unit) tablet Previous Rx's Medication Instructions Recorded benztropine 0.5 mg tablet 0.5 mg PO BID 30 days #60 tabs 12/09/22 metoprolol tartrate 25 mg tablet 25 mg PO BID 30 days #60 tabs 12/09/22 quetiapine 50 mg tablet (Seroquel) 50 mg PO BEDTIME 30 days #30 tabs 12/09/22 risperidone 1 mg tablet (Risperdal) 1 mg PO DAILY 30 days #30 tabs 12/09/22 risperidone 2 mg tablet (Risperdal) 2 mg PO BEDTIME 30 days #30 tabs 12/09/22 amoxicillin 875 mg-potassium 1 tab PO BID #14 tabs 06/10/23 clavulanate 125 mg tablet Allergies Allergy/AdvReac Type Severity Reaction Status Date / Time No Known Allergies Allergy Verified 06/10/23 16:31 Review of Systems Review of Systems: Yes all other systems are reviewed and are negative PMFSH Past Medical History Attestation statement: The following information was validated with the patient. Source: old records reviewed Medical History Schizoaffective disorder Anxiety HLD (hyperlipidemia) HTN (hypertension) Schizophrenia Social History Social History Household Members: Other Household Members Other:: roommate Housing: Apartment Do you presently have visiting nurse or other home services: No Alcohol intake: former Patient Tobacco Use Status: Never used Tobacco service: No Current 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 status: 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 Sexual orientation: Straight/Heterosexual Physical Exam Vital Signs: Appearance: Alert.?Oriented to person, place and time. No acute distress.?Normal affect. Neck: Normal inspection.? Neck supple.?? CVS: Heart sounds normal. Normal heart rate and rhythm.? Pulses normal.?? Respiratory: No respiratory distress.? Lung sounds clear to auscultation bilaterally?? Skin: Skin warm and dry.? Normal skin color.? Paronychia of the right 3rd digit without evidence of abscess? Extremities: Noextremity edema.? Neuro: Moves all extremities spontaneously. Sensation intact bilaterally. Ambulates with normal steady gait. Medical Decision Making Medical Decision Making MDM Narrative: Patient is a 67 year old female who presents emergency department for evaluation of redness to the right 3rd digit after biting the nail. Exam is not consistent with felon, no drainable abscess. Full AROM to the digit, neurovascularly intact distally. will treat with course of antibiotics and discussed monitoring for signs and symptoms of progressive infection/abscess formation. Discharged home with prescription for Augmentin and advised outpatient follow-up with primary care provider. Discussed strict return precautions. Differential Diagnosis Differential Diagnoses: The differential diagnosis associated with the presentation includes (As noted above) Admission/Observation Consideration of admission/observation: Escalation of care including admission/observation considered (As noted above) External Record Review External record reviewed: Outpatient record Prescription Management I considered prescription management with: Pain Medication (Acetaminophen/ibuprofen) and Antibiotic Discharge Plan Discharge Clinical Impression: Paronychia of finger of right hand Patient Disposition: Home, Self-Care Instructions: Paronychia (ED) Additional Instructions: Please refrain from biting nails. Complete the entire course of antibiotics as prescribed. Follow-up with your primary care provider next week. Return back to emergency department any new or worsening symptoms or concerns such as increased redness, pain, swelling, pus-like discharge, fevers, chills. Prescriptions: New amoxicillin-pot clavulanate 875-125 mg tablet 1 tab PO BID Qty: 14 0RF No Action alendronate 70 mg tablet 70 mg PO QWEEK Rx Instructions: PT takes on Fridays simvastatin 20 mg tablet 20 mg PO BEDTIME fenofibrate 160 mg tablet 160 mg PO DAILY risperidone [Risperdal] 1 mg tablet 1 mg PO DAILY 30 Days Qty: 30 0RF risperidone [Risperdal] 2 mg tablet 2 mg PO BEDTIME 30 Days Qty: 30 0RF benztropine 0.5 mg tablet 0.5 mg PO BID 30 Days Qty: 60 0RF metoprolol tartrate 25 mg tablet 25 mg PO BID 30 Days Qty: 60 0RF quetiapine [Seroquel] 50 mg tablet 50 mg PO BEDTIME 30 Days Qty: 30 0RF carbidopa-levodopa 25-100 mg tablet 1 tab PO BID@0900,1200 Rx Instructions: Take one tab by mouth in the AM and at Noon cholecalciferol (vitamin D3) 25 mcg (1,000 unit) Tablet 25 mcg PO DAILY Referrals: Luciana Winters MD [Primary Care Provider] - Interventions: ED Discharge Assessment Last Done: 06/10/23 16:38
[2023-06-10 16:29] VITALS: BP 127/90; PULSE 94; RESP 18; TEMP 36.6; O2SAT 97; BMI 19.3
[2023-06-10 16:38] VITALS: BP 127/90; PULSE 94; RESP 18; TEMP 36.6; O2SAT 97
== END 2023-06-10 16:40 | disposition home or self-care (01) ==
PROVIDERS: Emergency Provider Internal Medicine; PCP Family Medicine
DX: L03.011 Cellulitis of right finger (principal); F98.8 Other specified behavioral and emotional disorders with onset usually occurring in childhood and adolescence; F41.9 Anxiety disorder, unspecified; I10 Essential (primary) hypertension
CPT/HCPCS: 99282; 99283

== ENCOUNTER 2023-09-06 11:34 | Outpatient (REF) | payer MEDICARE, MEDICAID, SELFPAY ==
[2023-09-06 13:36] LABS: MANUAL DIFF FLAG NO
[2023-09-06 13:50] LABS: Basophils Percent Auto 0.7 % (0-2); Eosinophils Absolute Auto 0.1 X10*3/uL (0.0-0.4); Eosinophils Percent Auto 2.2 % (0-4); Hematocrit 40.5 % (37.0-47.0); Hemoglobin 12.9 g/dl (12.0-16.0); Imm Gran Abs Auto 0.03 X10*3/uL (0.00-0.03); Imm Gran Pct Auto 0.5 % (0.0-0.4); Lymphocytes Absolute Auto 1.8 X10*3/uL (1.2-4.9); Lymphocytes Percent Auto 32.1 % (20-40); Mean Corpuscular HGB Conc 31.9 g/dl (31.0-35.0); Mean Corpuscular Hemoglobin 29.5 pg (27.0-33.0); Mean Corpuscular Volume 92.7 fL (80.0-98.0); Mean Platelet Volume 13.4 fL (9.4-12.3); Monocytes Absolute Auto 0.5 X10*3/uL (0.1-1.2); Monocytes Percent Auto 8.7 % (2-11); Neutrophils Absolute Auto 3.1 x10*3/uL (2.0-8.3); Neutrophils Percent Auto 55.8 % (45-73); Platelet Count 185 X10*3/uL (160-400); Red Blood Count 4.37 X10*6/uL (4.20-5.50); Red Cell Distribution Width 12.9 % (11.0-16.0); White Blood Count 5.5 X10*3/uL (4.8-10.8)
[2023-09-06 13:58] LABS: Estimated Average Glucose 97 mg/dL
[2023-09-06 14:02] LABS: Alanine Aminotransferase 15 U/L (0-31); Albumin Level 4.1 g/dL (3.5-5.0); Alkaline Phosphatase 36 U/L (39-117); Anion Gap 10 (12-20); Aspartate Amino Transferase 19 U/L (5-31); Bilirubin Total 0.5 mg/dL (0.0-1.0); Blood Urea Nitrogen 22 mg/dL (9-16); Calcium 9.6 mg/dL (8.4-10.2); Carbon Dioxide 26 mmol/L (22-29); Chloride 111 mmol/L (96-108); Cholesterol 135 mg/dL (<200); Estimated Glomerular Filt Rate 55; Glucose Random 85 mg/dL (60-115); HDL Cholesterol 47 mg/dL (>40); LDL Cholesterol Calculated 78 mg/dL (<100); Sodium 143 mmol/L (135-145); Total Protein 7.2 g/dL (6.5-8.0); Triglycerides 50 mg/dL (<150)
[2023-09-06 14:20] LABS: TSH reflex Free T4 0.82 uIU/mL (0.32-4.0)
[2023-09-06 17:49] LABS: Reflex LDLD? No
== END 2023-09-06 11:35 | disposition home or self-care (01) ==
LOC: HO.HHCL 11:34
PROVIDERS: Visit Provider Family Medicine
DX: I10 Essential (primary) hypertension (principal); R63.4 Abnormal weight loss; E78.5 Hyperlipidemia, unspecified; E55.9 Vitamin D deficiency, unspecified; Z13.1 Encounter for screening for diabetes mellitus
CPT/HCPCS: 36415; 80053; 80061; 82306; 83036; 84443; 85025

== ENCOUNTER → 2023-09-28 10:32 | Outpatient (REF) | payer MEDICARE, MEDICAID, SELFPAY ==
--- NOTE | 2023-09-28 10:37 | HM_ITS ---
Conclusion: 1. Patient was monitored for total period of 1 day and 23 hours 2. Baseline was normal sinus rhythm with average heart of 57 beats per minute 3. No significant pauses noted with frequent sinus bradycardia, 63% of time 4. No significant arrhythmias noted 5. No patient diary submitted MTDD
== END ==
LOC: HO.CARD 10:32
PROVIDERS: PCP Family Medicine; Visit Provider Family Medicine
DX: R00.0 Tachycardia, unspecified (principal); R00.1 Bradycardia, unspecified
CPT/HCPCS: 93225

== ENCOUNTER → 2023-09-28 10:37 | Outpatient (BNV) | payer MEDICARE, MEDICAID, SELFPAY | PROVIDERS: PCP Family Medicine; Visit Provider Internal Medicine Cardiovascular Disease | DX: R00.1 Bradycardia, unspecified (principal) | CPT/HCPCS: 93227 ==

== ENCOUNTER 2023-10-26 11:39 | Outpatient (REF) | payer MEDICARE, MEDICAID, SELFPAY ==
--- NOTE | ~2023-10-26 | MM_ITS ---
EXAMINATION: BONE DENSITOMETRY CLINICAL INDICATION: Osteoporosis. COMPARISON: Baseline BD dated 03/31/2021. TECHNIQUE: Using a [employer] DXA System (software version: 13.1) manufactured by [employer], dual-energy x-ray absorptiometry was performed of the lumbar spine and left hip. The images are of good technical quality. Summary results are attached. FINDINGS: LEFT FEMUR, NECK: Current: BMD 0.908 g/cm2, Z-score 0.9, T-score -0.9, normal. Baseline: BMD 0.595 g/cm2. LEFT FEMUR, TOTAL: Current: BMD 0.951 g/cm2, Z-score 1.2, T-score -0.5, normal, 54.1% increase from baseline (<5% change is not significant). Baseline: BMD 0.617 g/cm2. AP SPINE L1-L2 (excluding L3 and L4): The data of L1-L4 has been changed to exclude the L3 and L4 vertebral bodies, because degenerative sclerosis at these levels may cause overestimation of lumbar spine density. Current: BMD 1.093 g/cm2, Z-score 1.5, T-score -0.6, normal, 5.9% increase from baseline (<5% change is not significant). Baseline: BMD 1.032 g/cm2. IDENTIFIED RISK FACTORS: Height loss, menopause, osteoporosis, renal. HISTORY OF FRACTURE: None listed. MEDICATIONS: Vitamin D. MM/XR DEXA axial skeleton IMPRESSION: 1. DIAGNOSIS: Normal bone density based on the lowest T-score value of -0.9 in the femoral neck applying World Health Organization criteria. 2. 10-YEAR FRACTURE RISK PREDICTION, FRAX: According to the guidelines, FRAX calculation should only be performed on patients in the osteopenia bone density category. Therefore, FRAX was not performed on this patient.? 3. Treatment Recommendations: NOF guidelines recommend consideration for treatment in postmenopausal women and men age 50 and older presenting with the following: -A hip or vertebral (clinical or morphometric) fracture. -T-score less than or equal to -2.5 at the femoral neck or spine after appropriate evaluation to exclude secondary causes. -Low bone mass at the hip or spine and a 10-year fracture probability by FRAX of greater than or equal to 3% for hip fracture or greater than or equal to 20% for major osteoporotic fracture based on the [place] adapted WHO algorithm. 4. Other Recommendations: All treatment decisions require clinical judgment and consideration of individual patient factors, including patient preferences, comorbidities, previous drug use, risk factors not captured in the FRAX model (e.g. frailty, falls, vitamin D deficiency, increased bone turnover, interval significant decline in bone density) and possible under or overestimation of fracture risk by FRAX. FUTURE SCAN RECOMMENDATION: People with diagnosed cases of osteoporosis or at high risk for fracture should have regular bone mineral density tests. For patients eligible for Medicare, routine testing is allowed once every 2 years. The testing frequency can be increased to one year for patients who have rapidly progressing disease, those who are receiving or discontinuing medical therapy to restore bone mass, or have additional risk factors.
== END 2023-10-26 11:40 | disposition home or self-care (01) ==
LOC: HO.MAMMO 11:39
PROVIDERS: PCP Family Medicine; Visit Provider Family Medicine
DX: M81.0 Age-related osteoporosis without current pathological fracture (principal)
CPT/HCPCS: 77080

== ENCOUNTER 2024-01-09 10:45 | Inpatient (IN) | payer MEDICARE, MEDICAID, SELFPAY ==
[2024-01-09] VITALS (7 sets, daily range): BP systolic 104–120; BP diastolic 42–78; PULSE 70–99; RESP 12–20; TEMP 32.5–37.3; O2SAT 96–99; BMI 19.4
--- NOTE | ~2024-01-09 | US_ITS ---
EXAMINATION: US ABDOMEN LIMITED CLINICAL INFORMATION: CT showing content in gallbladder neck. Rule out vascular components/solid mass. COMPARISON: CT chest 01/09/2024. TECHNIQUE: Real-time imaging of the gallbladder and common bile duct. FINDINGS: GALLBLADDER: Multiple stones and sludge identified in the gallbladder. No gallbladder wall thickening. No pericholecystic fluid appreciated. Limited visualization due to bowel gas and limited distention of gallbladder. GI consultation as well as possible additional imaging with MR/MRCP should be considered to evaluate the effect of concern identified on CT scan of 01/09/2024. COMMON BILE DUCT: Normal in caliber measuring 0.3 cm in diameter. US/US abdomen limited IMPRESSION: Multiple stones and sludge identified in the gallbladder. No pericholecystic fluid appreciated. Limited visualization due to bowel gas and limited distention of gallbladder. GI consultation as well as possible additional imaging with MR/MRCP should be considered to evaluate the effect of concern identified on CT scan of 01/09/2024 Electronically signed by: Sharda Simon MD 01/10/2024 02:29 PM EDT
--- NOTE | ~2024-01-09 | CT_ITS ---
EXAMINATION: CT HEAD WITHOUT CONTRAST CLINICAL INFORMATION: [Altered mental status COMPARISON: None available. TECHNIQUE: Contiguous axial imaging was performed from the skull base to vertex without intravenous administration of contrast. This CT examination was performed using dose optimization techniques as appropriate, variously including the following: *Automated exposure control *Adjustment of mA and/or kV according to patient size (this includes techniques or standardized protocols for targeted exams where dose is matched to indication/reason for exam; i.e. extremities or head) *Use of iterative reconstruction technique DLP: 450 mGy-cm FINDINGS: There is no mass hemorrhage or cerebral edema The ventricles and basal cisterns appear normal. No extra-axial fluid collection. Bone/calvarium: Intact. Sinuses clear. The mastoid air cells normal. CT/CT head/brain wo IV con IMPRESSION: No acute intracranial pathology. Electronically signed by: Davis Farnsworth MD 01/09/2024 01:53 PM EDT
--- NOTE | ~2024-01-09 | XR_ITS ---
EXAMINATION: XR CHEST CLINICAL INFORMATION: AMS. COMPARISON: August 18, 2022 TECHNIQUE: Frontal view of the chest was obtained. FINDINGS: There is no gross pneumothorax. Degenerative changes in the thoracic spine. Evaluation of the cardiomediastinal silhouette and thorax is limited due to patient rotation. Redemonstration of focal sclerotic densities along the upper bilateral thoraces as well as overlying the left scapula, possibly within bone and/or soft tissue and of indeterminant etiology. No significant pleural effusion. Increased vascular prominence, possibly representing vascular congestion. A 1.1 cm nodule overlying the lower right hemithorax was not appreciated on the prior exam and may represent a nipple shadow versus pulmonary nodule. Repeat view after placement of nipple markers recommended. Small faint nodular densities in the right hemithorax with example in the lateral mid right lung measuring approximately 0.5 cm. XR/XR chest 1V IMPRESSION: 1. Increased vascular prominence, possibly representing moderate vascular congestion. 2. Small faint nodular densities in the right hemithorax with example in the lateral mid right lung measuring approximately 0.[address] scan of the chest should be considered for further evaluation. 3. A 1.1 cm nodule overlying the lower right hemithorax was not appreciated on the prior exam and may represent a nipple shadow versus pulmonary nodule. Repeat view after placement of nipple markers recommended. 4. Redemonstration of focal sclerotic densities along the upper bilateral thoraces as well as overlying the left scapula, possibly within bone and/or soft tissue and of indeterminant etiology. This study was presented today January 09, 2024 for interpretation. Stat results provided at this time as requested by referring provider. Electronically signed by: Sharda Simon MD 01/09/2024 02:55 PM EDT
--- NOTE | ~2024-01-09 | CT_ITS ---
EXAMINATION: CT CHEST WITHOUT CONTRAST CLINICAL INFORMATION: Evaluate nodular densities on prior radiograph. COMPARISON: Chest radiograph earlier today. TECHNIQUE: Multidetector volumetric CT imaging of the chest was done. Axial MIP volume rendering provided. Sagittal and coronal reformatted images were obtained. This CT examination was performed using dose optimization techniques as appropriate, variously including the following: *Automated exposure control *Adjustment of mA and/or kV according to patient size (this includes techniques or standardized protocols for targeted exams where dose is matched to indication/reason for exam; i.e. extremities or head) *Use of iterative reconstruction technique DLP: 249 mGy-cm FINDINGS: LUNGS: Bronchial wall thickening with scattered mucous plugging and bronchiectasis. Multiple solid pulmonary nodules, many with a tree-in-bud/peribronchial distribution and predominantly located in the right upper and right middle lobes, largest measuring 1.2 x 0.8 cm in the right middle lobe (5:334) and 1 x 0.5 cm in the right upper lobe (5:217). Biapical nodular-like calcified pleural plaques measuring 1.4 x 1 cm and the right apex (5:64) and 1.6 x 1 cm in the left apex (5:46). No dense consolidation or significant groundglass disease. Subsegmental atelectasis in the lingula. Central airways are patent. MEDIASTINUM: Normal heart size. Trace pericardial effusion. No mediastinal lymphadenopathy. Limited evaluation of the hilar structures in the absence of intravenous contrast. CORONARY ARTERY CALCIFICATION: Coronary artery calcifications are present. PLEURA: No pleural effusion or pneumothorax. As above, biapical calcified pleural plaques. AXILLA: No lymphadenopathy. UPPER ABDOMEN: Calcified gallbladder wall with indeterminate mixed density material seen in the region of the neck. OSSEOUS STRUCTURES: No acute or aggressive appearing osseous findings. Thoracic spondylosis. CT/CT chest wo IV con IMPRESSION: 1. Multiple solid pulmonary nodules, many with a tree-in-bud/peribronchial clustered distribution, largest measuring up to 1.2 cm. These are indeterminate, however the tree-in-bud/peribronchial clustered distribution of many of them with associated bronchial wall thickening, mucous plugging and bronchiectasis are suggestive of an infectious/inflammatory etiology. Nevertheless, malignancy cannot be entirely excluded and a short-term follow-up CT chest in 3-6 months is recommended. 2. Biapical nodular-like calcified pleural plaques. Attention on follow-up at 3-6 months recommended. 3. 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 Recommend further characterization with right upper quadrant ultrasound to ensure absence of vascular components/solid mass. Fleischner guidelines were followed. Electronically signed by: Rox Burris MD 01/09/2024 06:03 PM EDT
--- NOTE | 2024-01-09 11:28 | PC.NURSE ---
pt is alert and oriented, skin pink, very cold to the touch, pt is shivering and clothing damp, pt was outside since 1430 yesterday in the rain, pt left her house cant state why she left and never came home, missing person was supposedly filled, a by stander called the police because the pt was sitting on the side of the road, noticeable abrasion to the right shoulder/elbow/right knee/redness to the right buttock. ernesto branchggkenny applied pt's rectal temp 90.5, all other vs stable
--- NOTE | 2024-01-09 11:34 | PC.NURSE ---
pt's daughter Kiana Fagan called just checking that the pt was in the ED, was concern because the pt has been missing since yesterday 1430, if any question's the daughter's phone number is [phone]
--- NOTE | 2024-01-09 11:55 | ECG_ITS ---
Test Reason : ?AMS Blood Pressure : / mmHG Vent. Rate : 071 BPM Atrial Rate : 071 BPM P-R Int : 140 ms QRS Dur : 070 ms QT Int : 436 ms P-R-T Axes : 094 070 065 degrees QTc Int : 473 ms Artifact in tracing Normal sinus rhythm Early repolarization Otherwise normal ECG When compared with ECG of 15-MAR-2023 14:04, ST elevation now present in Inferior leads QT has lengthened Referred By: Margaux Parker Electronically Signed By:JONATHAN WATSON
--- NOTE | 2024-01-09 12:09 | ED_ITS ---
HPI - General Adult General Chief complaint: General Medical Stated complaint: WEAK Time Seen by Provider: 01/09/24 11:37 Source: patient, EMS, RN notes reviewed, old records reviewed and other Mode of arrival: EMS History of Present Illness ED Provider: Margaux Parker PA-C HPI narrative: 68-year-old female with a past medical history of schizoaffective disorder, anxiety, HLD, HTN, schizophrenia, presenting to the ED via EMS s/p being found on the side of the road by a bystander. Per patient and roommate she left to go on a walk last night and spent the night outside in the rain. Patient denies being lost, states she went for a walk. Poor historian. Roommate states her behavior at present is typical for her. Admits to fall, denies head trauma or LOC. admits to feeling cold, denies other complaints at present. Related Data Home Medications ?Medication ?Instructions ?Recorded ?Confirmed cholecalciferol (vitamin D3) 25 25 mcg PO DAILY 12/31/22 03/14/23 mcg (1,000 unit) tablet ammonium lactate 12 % topical cream 1 appl topical DAILY PRN Dry Skin 01/09/24 carbidopa 25 mg-levodopa 100 mg 1 tab PO BID 01/09/24 tablet fenofibrate 160 mg tablet 160 mg PO DAILY 01/09/24 metoprolol tartrate 25 mg tablet 25 mg PO BID 01/09/24 quetiapine 50 mg tablet 50 mg PO BEDTIME 01/09/24 01/09/24 risperidone 1 mg tablet 1 mg PO DAILY 01/09/24 risperidone 2 mg tablet 2 mg PO BEDTIME 01/09/24 simvastatin 20 mg tablet 20 mg PO BEDTIME 01/09/24 Allergies Allergy/AdvReac Type Severity Reaction Status Date / Time No Known Allergies Allergy Verified 01/09/24 11:07 Review of Systems 2 Review of Systems: Yes all other systems are reviewed and are negative Constitutional: Constitutional: Reports as per [facility] Past Medical History Attestation statement: The following information was validated with the patient. Source: old records reviewed Medical History Schizoaffective disorder Anxiety HLD (hyperlipidemia) HTN (hypertension) Schizophrenia Social History Social History Household Members: Other Household Members Other:: roommate Housing: Apartment Do you presently have visiting nurse or other home services: No Alcohol intake: former Patient Tobacco Use Status: Never used Tobacco Smoked in Last 30 Days: No Use of substances other than those prescribed or required for medical reasons: No Advance Directives: No Advance Directives Information Provided: Yes Do you have a plan to hurt others: No Plan service: No Current 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 status: 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 Sexual orientation: Straight/Heterosexual Physical Exam ED Vital Signs: Vital Signs - 24 hr 01/09/24 11:03 01/09/24 11:23 01/09/24 13:09 Temperature 90.5 F L 91.0 F L 94.6 F L Pulse Rate 90 70 Respiratory Rate 20 18 Blood Pressure 120/63 104/55 L Pulse Oximetry 99 99 Oxygen Delivery Method Room Air Room Air 01/09/24 14:17 01/09/24 16:01 Temperature 96.3 F L 98.6 F Pulse Rate 85 97 Respiratory Rate 18 Blood Pressure 110/47 L 114/42 L Pulse Oximetry 99 99 Oxygen Delivery Method Room Air Room Air BMI result Body Mass Index 19.4 Const Other: bizarre General: cooperative, no acute distress, alert and awake Orientation/consciousness: patient oriented x3 HENMT Head: Yes normal to inspection and Yes atraumatic Ears: hearing grossly normal bilaterally General nose exam: Normal external nose present Face and sinus: Yes normal facial exam Eyes General: appearance normal, both eyes and all related structures Pupils: Equal, round and reactive pupils present EOM: EOMs intact bilaterally Neck Neck: Yes normal visual inspection and Yes no meningeal signs Resp Effort & Inspection: normal respiratory effort and no respiratory distress Auscultation: clear to auscultation bilaterally and no wheezes Cardio Rate: regular rate Heart sounds: S1 normal heart sound present and S2 normal heart sound present GI Inspection: Yes normal to inspection Palpation (GI): Soft to palpation, nontender, no guarding and not rigid Skin Rashes: no rashes Wounds: no wounds Neuro General: patient oriented x3, tone normal, moves all extremities, no meningeal signs, no focal motor deficits and CN's II-XI intact bilaterally Cranial nerves: Yes CN's II-XII intact bilaterally and Yes Equal, round and reactive pupils present Cognition (Neuro): normal cognition Motor exam (neuro): 5/5 motor strength present throughout Extrem General: Yes normal to inspection Course Course Course Narrative: -1332--leukocytosis 15.3. Lactic acid WNL. Ammonia WNL -1409--glucose low at 38 > patient given p.o. juice >> repeat POC 33, IV dextrose ordered. Anion gap of 28 > likely from starvation ketosis -CO2 low at 13. Lactic acid WNL. AST/ALT elevated. [place] 4873 > patient receiving IVF -initial troponin 35 > will obtain 3 hour repeat -ethanol negative. Viral studies negative CT head/brain wo IV con IMPRESSION: No acute intracranial pathology. XR chest 1V IMPRESSION: 1. Increased vascular prominence, possibly representing moderate vascular congestion. 2. Small faint nodular densities in the right hemithorax with example in the lateral mid right lung measuring approximately 0.[address] scan of the chest should be considered for further evaluation. 3. A 1.1 cm nodule overlying the lower right hemithorax was not appreciated on the prior exam and may represent a nipple shadow versus pulmonary nodule. Repeat view after placement of nipple markers recommended. 4. Redemonstration of focal sclerotic densities along the upper bilateral thoraces as well as overlying the left scapula, possibly within bone and/or soft tissue and of indeterminant etiology. This study was presented today January 09, 2024 for interpretation. Stat results provided at this time as requested by referring provider. > will obtain chest CT for further eval. -1521--POC 247 >> Plan to admit for further management Discussed case with Dr. Vidal, will obtain beta hydroxybutyrate prior to admission to ensure patient does not need insulin drip due to acidosis/anion gap. ED care transferred to [facility] pending lab result. Medications Administered Generic Name Dose Route Start Last Admin Trade Name Freq PRN Reason Stop Dose Admin Dextrose 250 mls @ 750 mls/hr 01/09/24 14:04 01/09/24 14:58 D10 IV Infused Q15M PRN Infusion per Hypoglycemia Standing Ord. Discontinued Medications Generic Name Dose Route Start Last Admin Trade Name Freq PRN Reason Stop Dose Admin Piperacillin Sod/Tazobactam 50 mls @ 100 mls/hr 01/09/24 14:08 01/09/24 15:45 Sod 3.375 gm/ Sodium Chloride IV 01/09/24 14:37 Infused ONCE ONE Infusion Lactated Ringer's 1,000 mls @ 999 mls/hr 01/09/24 14:15 01/09/24 15:56 Lr IV 01/09/24 15:15 999 mls/hr .Q1H1M SHAQ Administration Lactated Ringer's 1,000 mls @ 999 mls/hr 01/09/24 14:15 01/09/24 15:57 Lr IV 01/09/24 15:15 999 mls/hr .Q1H1M SHAQ Administration Medical Decision Making Medical Decision Making MDM Narrative: 68-year-old female with a past medical history of schizoaffective disorder, anxiety, HLD, HTN, schizophrenia, presenting to the ED via EMS s/p being found on the side of the road by a bystander. On exam hypothermic 90.5, awake and alert, A&O x3 however poor historian, odd behavior. This is baseline for patient per roommate that is at bedside. Patient's daughter called and states she is a schizophrenic and not always compliant with medications. Concern for psychiatric illness/schizophrenia vs metabolic/infectious etiologies. Low suspicion for severe sepsis at this time. Plan: Alejandro Underwood, EKG, labs, UA, head CT, CXR, psych consult Please refer to course for remaining clinical decision making, interpretation of labs/imaging results, and discussions with consultants and/or family members. Differential Diagnosis Differential Diagnoses: The differential diagnosis associated with the presentation includes As above Admission/Observation Consideration of admission/observation: Escalation of care including admission/observation considered Lab Data [facility] Lab Attestation statement: I reviewed the patient's lab results. 01/09/24 13:05 01/09/24 15:28 Labs: Lab Results 01/09/24 01/09/24 01/09/24 Range/Units 13:04 13:05 13:14 WBC 15.3 H (4.8-10.8) X10*3/uL RBC 4.27 (4.20-5.50) X10*6/uL Hgb 12.7 (12.0-16.0) g/dl Hct 39.4 (37.0-47.0) % MCV 92.3 (80.0-98.0) fL MCH 29.7 (27.0-33.0) pg MCHC 32.2 (31.0-35.0) g/dl RDW 12.3 (11.0-16.0) % Plt Count 211 (160-400) X10*3/uL MPV 12.9 H (9.4-12.3) fL Immature Gran % (Auto) 0.6 H (0.0-0.4) % Neut % (Auto) 89.8 H (45-73) % Lymph % (Auto) 4.2 L (20-40) % [place] % (Auto) 5.3 (2-11) % Eos % (Auto) 0.0 (0-4) % Baso % (Auto) 0.1 (0-2) % Lymph # (Auto) 0.7 L (1.2-4.9) X10*3/uL [place] # (Auto) 0.8 (0.1-1.2) X10*3/uL Eos # (Auto) 0.0 (0.0-0.4) X10*3/uL Baso # (Auto) 0.0 (0.0-0.2) X10*3/uL Abs Immat Gran (auto) 0.09 H (0.00-0.03) X10*3/uL Absolute Neuts (auto) 13.8 H (2.0-8.3) x10*3/uL Absolute Nucleated RBC 0.000 (0.0-0.012) X10*3/uL Nucleated RBC % (auto) 0.0 (0.0-0.2) /100WBC PT 13.5 H (10.9-12.4) SEC INR 1.2 H (0.9-1.1) VBG pH (7.32-7.43) VBG pCO2 mmHg VBG pO2 mmHg VBG HCO3 (22-26) mmol/L VBG O2 Saturation % VBG Base Excess mmol/L Sodium 142 (135-145) mmol/L Potassium 4.0 (3.3-5.1) mmol/L Chloride 105 (96-108) mmol/L Carbon Dioxide 13 L (22-29) mmol/L Anion Gap 28 H (12-20) BUN 43 H (9-16) mg/dL Creatinine 1.07 (0.5-1.4) mg/dL Estim Creat Clear Calc 40.7 Estimated GFR 51 POC Glucose (60-115) mg/dL Random Glucose 38 L* (60-115) mg/dL Lactic Acid 1.1 (0.5-2.0) mmol/L Calcium 10.8 H D (8.4-10.2) mg/dL Magnesium 2.5 (1.6-2.6) mg/dL Total Bilirubin 0.7 (0.0-1.0) mg/dL Direct Bilirubin 0.3 (0.0-0.5) mg/dL AST 148 H (5-31) U/L ALT 38 H (0-31) U/L Alkaline Phosphatase 42 (39-117) U/L Ammonia 36 (13-55) umol/L Total Creatine Kinase 4873 H (26-140) U/L Troponin I High Sens 35.4 H (<3.5-17.0) ng/L B-Natriuretic Peptide 40 (<100) pg/mL Total Protein 7.3 (6.5-8.0) g/dL Albumin 4.3 (3.5-5.0) g/dL Lipase 9 (8-78) U/L Ethyl Alcohol < 10 mg/dL Influenza Type A (PCR) NEGATIVE (Negative) Influenza Type B (PCR) NEGATIVE (Negative) RSV RNA Qual (PCR) NEGATIVE (Negative) SARS-CoV-2 RNA (RT-PCR) NEGATIVE (Negative) 01/09/24 01/09/24 01/09/24 Range/Units 14:02 15:15 15:28 WBC (4.8-10.8) X10*3/uL RBC (4.20-5.50) X10*6/uL Hgb (12.0-16.0) g/dl Hct (37.0-47.0) % MCV (80.0-98.0) fL MCH (27.0-33.0) pg MCHC (31.0-35.0) g/dl RDW (11.0-16.0) % Plt Count (160-400) X10*3/uL MPV (9.4-12.3) fL Immature Gran % (Auto) (0.0-0.4) % Neut % (Auto) (45-73) % Lymph % (Auto) (20-40) % [place] % (Auto) (2-11) % Eos % (Auto) (0-4) % Baso % (Auto) (0-2) % Lymph # (Auto) (1.2-4.9) X10*3/uL [place] # (Auto) (0.1-1.2) X10*3/uL Eos # (Auto) (0.0-0.4) X10*3/uL Baso # (Auto) (0.0-0.2) X10*3/uL Abs Immat Gran (auto) (0.00-0.03) X10*3/uL Absolute Neuts (auto) (2.0-8.3) x10*3/uL Absolute Nucleated RBC (0.0-0.012) X10*3/uL Nucleated RBC % (auto) (0.0-0.2) /100WBC PT (10.9-12.4) SEC INR (0.9-1.1) VBG pH (7.32-7.43) VBG pCO2 mmHg VBG pO2 mmHg VBG HCO3 (22-26) mmol/L VBG O2 Saturation % VBG Base Excess mmol/L Sodium 138 (135-145) mmol/L Potassium 3.6 (3.3-5.1) mmol/L Chloride 102 (96-108) mmol/L Carbon Dioxide 13 L (22-29) mmol/L Anion Gap 27 H (12-20) BUN 44 H (9-16) mg/dL Creatinine 1.27 (0.5-1.4) mg/dL Estim Creat Clear Calc 34.3 Estimated GFR 42 POC Glucose 33 L* 247 H (60-115) mg/dL Random Glucose 239 H (60-115) mg/dL Lactic Acid (0.5-2.0) mmol/L Calcium 10.0 D (8.4-10.2) mg/dL Magnesium (1.6-2.6) mg/dL Total Bilirubin (0.0-1.0) mg/dL Direct Bilirubin (0.0-0.5) mg/dL AST (5-31) U/L ALT (0-31) U/L Alkaline Phosphatase (39-117) U/L Ammonia (13-55) umol/L Total Creatine Kinase (26-140) U/L Troponin I High Sens 41.9 H (<3.5-17.0) ng/L B-Natriuretic Peptide (<100) pg/mL Total Protein (6.5-8.0) g/dL Albumin (3.5-5.0) g/dL Lipase (8-78) U/L Ethyl Alcohol mg/dL Influenza Type A (PCR) (Negative) Influenza Type B (PCR) (Negative) RSV RNA Qual (PCR) (Negative) SARS-CoV-2 RNA (RT-PCR) (Negative) 01/09/24 Range/Units 15:34 WBC (4.8-10.8) X10*3/uL RBC (4.20-5.50) X10*6/uL Hgb (12.0-16.0) g/dl Hct (37.0-47.0) % MCV (80.0-98.0) fL MCH (27.0-33.0) pg MCHC (31.0-35.0) g/dl RDW (11.0-16.0) % Plt Count (160-400) X10*3/uL MPV (9.4-12.3) fL Immature Gran % (Auto) (0.0-0.4) % Neut % (Auto) (45-73) % Lymph % (Auto) (20-40) % [place] % (Auto) (2-11) % Eos % (Auto) (0-4) % Baso % (Auto) (0-2) % Lymph # (Auto) (1.2-4.9) X10*3/uL [place] # (Auto) (0.1-1.2) X10*3/uL Eos # (Auto) (0.0-0.4) X10*3/uL Baso # (Auto) (0.0-0.2) X10*3/uL Abs Immat Gran (auto) (0.00-0.03) X10*3/uL Absolute Neuts (auto) (2.0-8.3) x10*3/uL Absolute Nucleated RBC (0.0-0.012) X10*3/uL Nucleated RBC % (auto) (0.0-0.2) /100WBC PT (10.9-12.4) SEC INR (0.9-1.1) VBG pH 7.27 L (7.32-7.43) VBG pCO2 24 mmHg VBG pO2 62 mmHg VBG HCO3 11 L (22-26) mmol/L VBG O2 Saturation 86.0 % VBG Base Excess -13.3 mmol/L Sodium (135-145) mmol/L Potassium (3.3-5.1) mmol/L Chloride (96-108) mmol/L Carbon Dioxide (22-29) mmol/L Anion Gap (12-20) BUN (9-16) mg/dL Creatinine (0.5-1.4) mg/dL Estim Creat Clear Calc Estimated GFR POC Glucose (60-115) mg/dL Random Glucose (60-115) mg/dL Lactic Acid (0.5-2.0) mmol/L Calcium (8.4-10.2) mg/dL Magnesium (1.6-2.6) mg/dL Total Bilirubin (0.0-1.0) mg/dL Direct Bilirubin (0.0-0.5) mg/dL AST (5-31) U/L ALT (0-31) U/L Alkaline Phosphatase (39-117) U/L Ammonia (13-55) umol/L Total Creatine Kinase (26-140) U/L Troponin I High Sens (<3.5-17.0) ng/L B-Natriuretic Peptide (<100) pg/mL Total Protein (6.5-8.0) g/dL Albumin (3.5-5.0) g/dL Lipase (8-78) U/L Ethyl Alcohol mg/dL Influenza Type A (PCR) (Negative) Influenza Type B (PCR) (Negative) RSV RNA Qual (PCR) (Negative) SARS-CoV-2 RNA (RT-PCR) (Negative) Independent Interpretation I performed an independent interpretation of an: EKG, Plain X-Ray and CT Scan Radiology Impression Discussion of test interpretation with radiology: I have reviewed the radiologist's reading. Independent Historian Clinical information obtained from an independent historian. History obtained from or confirmed by: EMS and Other (Daughter and roommate) External Record Review External record reviewed: Inpatient record, Office record, Outpatient record, Prior outpatient labs, Prior outpatient radiology, Primary care record and Outside ED record Tests considered The following testing was considered but not selected: As above Social Determinants Patient?s care significantly limited by Social Determinants of Health including: Inadequate housing, Low income, Alcoholism and drug addiction in family, Problems related to primary support group, Unemployment, Problems related to employment and Other Social Determinant of Health Critical Care Time Critical Care Time Critical Care Time: Yes Total Critical Care Time: 40 Attestation: I have personally provided critical care time exclusive of time spent on separately billable procedures. Time includes review of lab data, radiology results, discussion with consultants, and monitoring for potential decompensation. Intervention performed as documented. Discharge Plan Discharge Clinical Impression: Metabolic acidosis, Rhabdomyolysis, Hypoglycemia Patient Disposition: Admitted As Inpatient Print Language: [place]an
[2024-01-09 13:11] LABS: MANUAL DIFF FLAG NO
[2024-01-09 13:14] LABS: Basophils Percent Auto 0.1 % (0-2); Hematocrit 39.4 % (37.0-47.0); Hemoglobin 12.7 g/dl (12.0-16.0); Imm Gran Abs Auto 0.09 X10*3/uL (0.00-0.03); Imm Gran Pct Auto 0.6 % (0.0-0.4); Lymphocytes Absolute Auto 0.7 X10*3/uL (1.2-4.9); Lymphocytes Percent Auto 4.2 % (20-40); Mean Corpuscular HGB Conc 32.2 g/dl (31.0-35.0); Mean Corpuscular Hemoglobin 29.7 pg (27.0-33.0); Mean Corpuscular Volume 92.3 fL (80.0-98.0); Mean Platelet Volume 12.9 fL (9.4-12.3); Monocytes Absolute Auto 0.8 X10*3/uL (0.1-1.2); Monocytes Percent Auto 5.3 % (2-11); Neutrophils Absolute Auto 13.8 x10*3/uL (2.0-8.3); Neutrophils Percent Auto 89.8 % (45-73); Platelet Count 211 X10*3/uL (160-400); Red Blood Count 4.27 X10*6/uL (4.20-5.50); Red Cell Distribution Width 12.3 % (11.0-16.0); White Blood Count 15.3 X10*3/uL (4.8-10.8)
[2024-01-09 13:20] LABS: INTERNATIONAL NORM RATIO 1.2 (0.9-1.1); Prothrombin Time 13.5 SEC (10.9-12.4)
[2024-01-09 13:23] LABS: Ammonia 36 umol/L (13-55)
[2024-01-09 13:26] LABS: Lactic Acid 1.1 mmol/L (0.5-2.0)
[2024-01-09 13:38] LABS: Troponin-I High Sensitivity 35.4 ng/L (<3.5-17.0)
[2024-01-09 13:46] LABS: Alanine Aminotransferase 38 U/L (0-31); Albumin Level 4.3 g/dL (3.5-5.0); Alkaline Phosphatase 42 U/L (39-117); Anion Gap 28 (12-20); Aspartate Amino Transferase 148 U/L (5-31); Bilirubin Direct 0.3 mg/dL (0.0-0.5); Bilirubin Total 0.7 mg/dL (0.0-1.0); Blood Urea Nitrogen 43 mg/dL (9-16); Calcium 10.8 mg/dL (8.4-10.2); Carbon Dioxide 13 mmol/L (22-29); Chloride 105 mmol/L (96-108); Creatinine Clr Calc Pharmacy 40.7; Estimated Glomerular Filt Rate 51; Ethanol < 10 mg/dL; Glucose Random 38 mg/dL (60-115); Lipase 9 U/L (8-78); Magnesium 2.5 mg/dL (1.6-2.6); Sodium 142 mmol/L (135-145); Total Protein 7.3 g/dL (6.5-8.0)
--- NOTE | 2024-01-09 13:47 | PC.NURSE ---
rec BG level of 30- PA [place] to bedside- food and drink provided to pt
[2024-01-09 13:57] LABS: Influenza A PCR NEGATIVE (Negative); Influenza B PCR NEGATIVE (Negative); Resp Syncy Virus RNA Qual PCR NEGATIVE (Negative); SARS COV2 PCR INHOUSE NEGATIVE (Negative)
[2024-01-09] MEDS: Dextrose 10 % 250 ML 750 ML IV (14:14)
--- NOTE | 2024-01-09 14:16 | PC.NURSE ---
repeat BG 38- Per LOADER MACHINE [place]- adm 10% dextrose
[2024-01-09] MEDS: Piperacillin Sodium/Tazobactam 3.375 GM in 0.9 % Sodium Chloride 50 ML IV (14:58)
[2024-01-09 15:21] LABS: Glucose, Whole Blood 33 mg/dL (60-115)
[2024-01-09 15:21] LABS: Glucose, Whole Blood 247 mg/dL (60-115)
[2024-01-09 15:38] LABS: Venous Blood Gas Refer to POC result
[2024-01-09 15:38] LABS: VBG Base Excess -13.3 mmol/L; VBG HCO3 11 mmol/L (22-26); VBG pCO2 24 mmHg; VBG pH 7.27 (7.32-7.43); VBG pO2 62 mmHg
[2024-01-09 15:50] LABS: Anion Gap 27 (12-20); Blood Urea Nitrogen 44 mg/dL (9-16); Carbon Dioxide 13 mmol/L (22-29); Chloride 102 mmol/L (96-108); Creatinine Clr Calc Pharmacy 34.3; Estimated Glomerular Filt Rate 42; Glucose Random 239 mg/dL (60-115); Potassium 3.6 mmol/L (3.3-5.1); Sodium 138 mmol/L (135-145)
[2024-01-09] MEDS: Lactated Ringers 1,000 ML 999 ML IV ×2 (15:56→15:57)
[2024-01-09 15:57] LABS: Troponin-I High Sensitivity 41.9 ng/L (<3.5-17.0)
[2024-01-09 16:14] LABS: B Type Natriuretic Peptide 40 pg/mL (<100)
[2024-01-09 16:51] LABS: Ethanol < 10 mg/dL
--- NOTE | 2024-01-09 17:01 | PHA.MEDREC ---
Pharmacy Consult ? Medication Reconciliation Pharmacy has completed the medication reconciliation. Spoke to patient at bedside, able to name most medications or at least how frequently she takes them. Notes she hasn't taken anything in a few days.
[2024-01-09 17:08] LABS: Beta-Hydroxybutyrate 10.23 mmol/L (0.02-0.27)
[2024-01-09 17:34] LABS: Acetaminophen LAB < 3 mcg/mL (<30); Salicylate < 5.0 mg/dL (15-30)
[2024-01-09 18:07] LABS: Glucose, Whole Blood 144 mg/dL (60-115)
[2024-01-09 18:08] LABS: Anion Gap 20 (12-20); Blood Urea Nitrogen 42 mg/dL (9-16); Calcium 9.6 mg/dL (8.4-10.2); Carbon Dioxide 19 mmol/L (22-29); Chloride 107 mmol/L (96-108); Creatinine Clr Calc Pharmacy 37.5; Estimated Glomerular Filt Rate 46; Glucose Random 147 mg/dL (60-115); Sodium 142 mmol/L (135-145)
[2024-01-09 18:42] LABS: Anion Gap 20 (12-20); Blood Urea Nitrogen 40 mg/dL (9-16); Carbon Dioxide 15 mmol/L (22-29); Chloride 109 mmol/L (96-108); Creatinine Clr Calc Pharmacy 47.3; Estimated Glomerular Filt Rate > 60; Glucose Random 147 mg/dL (60-115); Potassium 3.7 mmol/L (3.3-5.1); Sodium 140 mmol/L (135-145)
--- NOTE | 2024-01-09 18:43 | P.HPHOSP_ITS ---
History of Present Illness Date of Service: 01/09/24 Attending physician on admission: [facility] Chief Complaint: Hypothermia, weakness Pt is a 68-year-old female with a PMH significant for?HTN, HLD, parkinsonism, osteoporosis, PTSD, and schizophrenia who presents to the ED via EMS after being found on the side of the road?by a bystander after missing person's report filed last night. Patient overall is a rather vague and poor historian and HPI supplemented by chart/provider review and patient's roommate who is at bedside. Roommate reports last saw patient at 14:30 in the apartment's stairwell where she apparently enjoys going up and down the stairs repeatedly. Roommate took a nap and then checked again at 18:00 but patient was nowhere to be found. By 20:00 patient had not returned and roommate called police to file a missing person report. Patient reports she went outside to ?get some walks?. States she ?walked around a lot and stuff but is unable to further specify exactly where she went or what she did. Denies falling, trauma, or injury. Denies auditory or visual hallucinations. No SI/HI. Unclear if patient has VNA services or not. Reports takes home medications ?most of the time?, though can not state when last time was. Patient currently has no acute medical complaints. Denies fever, chills, nausea, vomiting, abdominal pain. No chest pain/pressure, palpitations. Denies shortness of breath, difficulty breathing, or cough. In the ED pt was hypothermic as low as 90.5, tachycardic up to 99 with soft BP as low as 104/55. Labs were significant for leukocytosis of 15.3, bicarb 13, anion gap 28, BUN 43, glucose 38, AST 148, ALT 39, CPK 4873, initial troponin 35.4 with repeat 41.9, and beta hydroxybutyrate 10.23. Initial VBG pH 7.27 with pCO2 44 and bicarb of 11, with repeat pH 7.57, pCO2 27, and bicarb 25. CXR showed increased vascular prominence, small faint nodular densities, possible 1.1 cm nodule on lower right hemithorax, and redemonstration of focal sclerotic densities. CT?of chest found multiple solid pulmonary nodules, many with tree-in-bud/peribronchial cluster distribution most suggestive of infectious/inflammatory etiology, though malignancy not excluded. 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 CTA of head negative for acute intracranial pathology. EKG demonstrated normal sinus rhythm without evidence of significant ST elevations or depressions. Pt was treated with dextrose, lactated Ringer's, and empiric Zosyn. Pt will be admitted to the hospital for treatment and further evaluation of hypothermia, hypoglycemia, rhabdomyolysis, and starvation ketosis. Review of Systems 2 Review of Systems: Yes all other systems are reviewed and are negative [facility] Medical History Schizoaffective disorder Anxiety HLD (hyperlipidemia) HTN (hypertension) Schizophrenia Social History Household Members: Other Household Members Other:: roommate Housing: Apartment Do you presently have visiting nurse or other home services: No Alcohol intake: former Patient Tobacco Use Status: Never used Tobacco Smoked in Last 30 Days: No Use of substances other than those prescribed or required for medical reasons: No Advance Directives: No Advance Directives Information Provided: Yes Do you have a plan to hurt others: No Plan Nutrition Risks: No Nutritional Risk service: No Current 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 status: 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 Last Infusion: 01/09/24 14:58 Dose: Infused Lactated Ringer's (Lr) 1,000 mls @ 150 mls/hr IVCONT .Q6H40M [facility] Home Medications ?Medication ?Instructions ?Recorded ?Confirmed ?Last Taken ?Type cholecalciferol (vitamin D3) 25 25 mcg PO DAILY 12/31/22 01/09/24 12/31/22 History mcg (1,000 unit) tablet alendronate 70 mg tablet 70 mg PO FR 01/09/24 01/09/24 Unknown History carbidopa 25 mg-levodopa 100 mg 1 tab PO BID 01/09/24 01/09/24 Unknown History tablet fenofibrate 160 mg tablet 160 mg PO DAILY 01/09/24 01/09/24 Unknown History metoprolol tartrate 25 mg tablet 25 mg PO BID 01/09/24 01/09/24 Unknown History quetiapine 50 mg tablet 50 mg PO BEDTIME 01/09/24 01/09/24 Unknown History risperidone 1 mg tablet 1 mg PO DAILY 01/09/24 01/09/24 Unknown History risperidone 2 mg tablet 2 mg PO BEDTIME 01/09/24 01/09/24 Unknown History simvastatin 20 mg tablet 20 mg PO BEDTIME 01/09/24 01/09/24 Unknown History Physical Exam 2 Vital Signs and Narrative: Vital Signs: Last Vital Signs Temp 99.1 F 01/09/24 17:27 Pulse 99 01/09/24 17:27 Resp 16 01/09/24 17:27 BP 109/46 L 01/09/24 17:27 Pulse Ox 98 01/09/24 17:27 O2 Del Method Room Air 01/09/24 17:27 BMI result Body Mass Index 19.4 Constitutional: Alert, unkempt, in no acute distress. Mental Status: Oriented to person, place and time. Eyes: Pupils are equal, round, and reactive to light. Ear, Nose, and Throat: Oropharynx clear, mucous membranes moist. Ears and nose without deformities. Trachea midline. Respiratory: Clear to auscultation bilaterally. No wheezing, rales, or rhonchi. Cardiovascular: S1, S2 regular. No murmurs, rubs, or gallops. Gastrointestinal: Abdomen soft, non-tender, non-distended. Normal bowel sounds. Neurologic: Cranial nerves II-XII are grossly intact bilaterally. No focal neurological deficits. Moves all extremities spontaneously, though with global and symmetric weakness. Resting upper extremity tremors noted. Skin: Warm, dry. Superficial abrasion to right knee. Mild ecchymosis of 2nd and 3rd MCP on right hand, with preserved milieu technician and ROM of right hand. Extremities: No edema. Psychiatric: Calm, cooperative. Does not appear to be responding to internal stimuli. Results Labs 01/09/24 13:05 01/09/24 18:23 Labs: Laboratory Results - last 24 hr 01/09/24 01/09/24 01/09/24 13:04 13:05 13:14 MCV 92.3 MCH 29.7 MCHC 32.2 RDW 12.3 Plt Count 211 MPV 12.9 H Immature Gran % (Auto) 0.6 H Neut % (Auto) 89.8 H Lymph % (Auto) 4.2 L [place] % (Auto) 5.3 Eos % (Auto) 0.0 Baso % (Auto) 0.1 Lymph # (Auto) 0.7 L [place] # (Auto) 0.8 Eos # (Auto) 0.0 Baso # (Auto) 0.0 Abs Immat Gran (auto) 0.09 H Absolute Neuts (auto) 13.8 H Absolute Nucleated RBC 0.000 Nucleated RBC % (auto) 0.0 PT 13.5 H INR 1.2 H VBG pH VBG pCO2 VBG pO2 VBG HCO3 VBG O2 Saturation VBG Base Excess Anion Gap 28 H Estim Creat Clear Calc 40.7 Estimated GFR 51 POC Glucose Random Glucose 38 L* Estimat Average Glucose Cancelled Hemoglobin A1c % Cancelled Lactic Acid 1.1 Calcium 10.8 H D Magnesium 2.5 Total Bilirubin 0.7 Direct Bilirubin 0.3 AST 148 H ALT 38 H Alkaline Phosphatase 42 Ammonia 36 Total Creatine Kinase 4873 H Troponin I High Sens 35.4 H B-Natriuretic Peptide 40 Total Protein 7.3 Albumin 4.3 Lipase 9 Beta-Hydroxybutyrate Salicylates Acetaminophen Ethyl Alcohol < 10 Influenza Type A (PCR) NEGATIVE Influenza Type B (PCR) NEGATIVE RSV RNA Qual (PCR) NEGATIVE SARS-CoV-2 RNA (RT-PCR) NEGATIVE 01/09/24 01/09/24 01/09/24 14:02 15:15 15:28 MCV MCH MCHC RDW Plt Count MPV Immature Gran % (Auto) Neut % (Auto) Lymph % (Auto) [place] % (Auto) Eos % (Auto) Baso % (Auto) Lymph # (Auto) [place] # (Auto) Eos # (Auto) Baso # (Auto) Abs Immat Gran (auto) Absolute Neuts (auto) Absolute Nucleated RBC Nucleated RBC % (auto) PT INR VBG pH VBG pCO2 VBG pO2 VBG HCO3 VBG O2 Saturation VBG Base Excess Anion Gap 27 H Estim Creat Clear Calc 34.3 Estimated GFR 42 POC Glucose 33 L* 247 H Random Glucose 239 H Estimat Average Glucose Hemoglobin A1c % Lactic Acid Calcium 10.0 D Magnesium Total Bilirubin Direct Bilirubin AST ALT Alkaline Phosphatase Ammonia Total Creatine Kinase Troponin I High Sens 41.9 H B-Natriuretic Peptide Total Protein Albumin Lipase Beta-Hydroxybutyrate 10.23 H Salicylates Acetaminophen Ethyl Alcohol < 10 Influenza Type A (PCR) Influenza Type B (PCR) RSV RNA Qual (PCR) SARS-CoV-2 RNA (RT-PCR) 01/09/24 01/09/24 01/09/24 15:34 17:09 17:48 MCV MCH MCHC RDW Plt Count MPV Immature Gran % (Auto) Neut % (Auto) Lymph % (Auto) [place] % (Auto) Eos % (Auto) Baso % (Auto) Lymph # (Auto) [place] # (Auto) Eos # (Auto) Baso # (Auto) Abs Immat Gran (auto) Absolute Neuts (auto) Absolute Nucleated RBC Nucleated RBC % (auto) PT INR VBG pH 7.27 L VBG pCO2 24 VBG pO2 62 VBG HCO3 11 L VBG O2 Saturation 86.0 VBG Base Excess -13.3 Anion Gap 20 Estim Creat Clear Calc 37.5 Estimated GFR 46 POC Glucose Random Glucose 147 H Estimat Average Glucose Hemoglobin A1c % Lactic Acid Calcium 9.6 Magnesium Total Bilirubin Direct Bilirubin AST ALT Alkaline Phosphatase Ammonia Total Creatine Kinase Troponin I High Sens B-Natriuretic Peptide Total Protein Albumin Lipase Beta-Hydroxybutyrate Salicylates < 5.0 L Acetaminophen < 3 Ethyl Alcohol Influenza Type A (PCR) Influenza Type B (PCR) RSV RNA Qual (PCR) SARS-CoV-2 RNA (RT-PCR) 01/09/24 01/09/24 18:04 18:23 MCV MCH MCHC RDW Plt Count MPV Immature Gran % (Auto) Neut % (Auto) Lymph % (Auto) [place] % (Auto) Eos % (Auto) Baso % (Auto) Lymph # (Auto) [place] # (Auto) Eos # (Auto) Baso # (Auto) Abs Immat Gran (auto) Absolute Neuts (auto) Absolute Nucleated RBC Nucleated RBC % (auto) PT INR VBG pH VBG pCO2 VBG pO2 VBG HCO3 VBG O2 Saturation VBG Base Excess Anion Gap 20 Estim Creat Clear Calc 47.3 Estimated GFR > 60 POC Glucose 144 H Random Glucose 147 H Estimat Average Glucose Hemoglobin A1c % Lactic Acid Calcium 9.0 D Magnesium Total Bilirubin Direct Bilirubin AST ALT Alkaline Phosphatase Ammonia Total Creatine Kinase Troponin I High Sens B-Natriuretic Peptide Total Protein Albumin Lipase Beta-Hydroxybutyrate Salicylates Acetaminophen Ethyl Alcohol Influenza Type A (PCR) Influenza Type B (PCR) RSV RNA Qual (PCR) SARS-CoV-2 RNA (RT-PCR) Imaging Radiologist's Impressions: Impressions Chest X-Ray 01/09/24 11:56 IMPRESSION: 1. Increased vascular prominence, possibly representing moderate vascular congestion. 2. Small faint nodular densities in the right hemithorax with example in the lateral mid right lung measuring approximately 0.[address] scan of the chest should be considered for further evaluation. 3. A 1.1 cm nodule overlying the lower right hemithorax was not appreciated on the prior exam and may represent a nipple shadow versus pulmonary nodule. Repeat view after placement of nipple markers recommended. 4. Redemonstration of focal sclerotic densities along the upper bilateral thoraces as well as overlying the left scapula, possibly within bone and/or soft tissue and of indeterminant etiology. This study was presented today January 09, 2024 for interpretation. Stat results provided at this time as requested by referring provider. Electronically signed by: Sharda Simon MD 01/09/2024 02:55 PM EDT RP Head CT 01/09/24 12:11 IMPRESSION: No acute intracranial pathology. Electronically signed by: Davis Farnsworth MD 01/09/2024 01:53 PM EDT RP Chest CT 01/09/24 15:56 IMPRESSION: 1. Multiple solid pulmonary nodules, many with a tree-in-bud/peribronchial clustered distribution, largest measuring up to 1.2 cm. These are indeterminate, however the tree-in-bud/peribronchial clustered distribution of many of them with associated bronchial wall thickening, mucous plugging and bronchiectasis are suggestive of an infectious/inflammatory etiology. Nevertheless, malignancy cannot be entirely excluded and a short-term follow-up CT chest in 3-6 months is recommended. 2. Biapical nodular-like calcified pleural plaques. Attention on follow-up at 3-6 months recommended. 3. 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 Recommend further characterization with right upper quadrant ultrasound to ensure absence of vascular components/solid mass. Fleischner guidelines were followed. Electronically signed by: Rox Burris MD 01/09/2024 06:03 PM EDT RP Assessment and Plan (1) Hypoglycemia: Status: Acute (2) Rhabdomyolysis: Status: Acute (3) Metabolic acidosis: Status: Acute (4) Hypothermia: Status: Acute Plan Pt is a 68-year-old female with a PMH significant for?HTN, HLD, parkinsonism, osteoporosis, PTSD, and schizophrenia who presents to the ED via EMS after being found on the side of the road?by a bystander after missing person's report filed last night. Pt will be admitted to the hospital for treatment and further evaluation of hypothermia, hypoglycemia, rhabdomyolysis, and starvation ketosis in the setting of environmental exposure. Metabolic acidosis, resolved Likely secondary to starvation ketosis; patient hypoglycemic as low as 33 while in the ED Initial VBG pH 7.27, bicarb 11, anion gap 28, elevated beta hydroxybutyrate Repeat VBG pH 7.57, bicarb 25, anion gap 20 after IVF and dextrose Patient given IVF and dextrose Placed on maintenance fluids Monitor POC Rhabdomyolysis CPK 4873 at time of presentation In the setting of starvation ketosis Patient received IVF in the ED Will place on maintenance fluids Follow CPK Question of pneumonia CT of chest with multiple solid pulmonary nodules with tree-in-bud/peribronchial cluster distribution Most suggestive of infectious/inflammatory etiology, though malignancy not entirely excluded Patient does not appear to be symptomatic with SOB or cough, the patient is a poor historian Meets SIRS criteria: Tachycardia, leukocytosis, hypothermia; lactic acid WNL Patient received IVF and started on broad-spectrum antibiotics in the ED Will empirically treat with ceftriaxone and azithromycin, started 01/09/[address] in 3-6 months to evaluate for resolution/possible malignancy UTI UA positive Covering with ceftriaxone as above Follow urine cultures Hypothermia, resolved Temperature as low as 90.5 Secondary to environmental exposure Patient [place] [facility] [place] normotensive at 98.6 Schizophrenia Denies auditory/visual hallucinations, does not appear to be responding to internal stimuli Question of med compliance at home Continue quetiapine and risperidone Psychiatry consult once medically cleared HTN Hold metoprolol due to soft BP HLD Continue statin Parkinsonism Continue carbidopa-levodopa Abnormal gallbladder Ct showing porcelain gallbladder w/nonspecific heterogeneous high density Will get RUQ ultrasound to r/o vascular component/solid mass Biapical nodular like calcified pleural plaques Follow up chest CT in 3-6 months Full Code Attending:?Dr. Hernandez DVT Prophylaxis: Lovenox Pt will require a hospitalization of at least two nights for treatment of?hypothermia, hypoglycemia, rhabdomyolysis, and starvation ketosis in the setting of environmental exposure as well as question of pneumonia. Patient will require hospital level care for administration of IV fluids, IV antibiotics, and close monitoring of labs. Quality Stroke Does the patient have a stroke diagnosis?: No VTE Prior VTE?: No VTE Risk Level:: Medical - moderate - high VTE Device Contraindication: Treatment Not Indicated VTE Drug Contraindication: N/A - Med Ordered
[2024-01-09] MEDS: Lactated Ringers 1,000 ML 150 ML IVCONT (18:51)
[2024-01-09 21:36] LABS: Appearance Urine Cloudy; Color Urine Yellow; Glucose Urine UA Negative (Negative); Leukocyte Esterase Urine Small (1+) (Negative); Nitrite Urine Positive (Negative); PH 5.5 (5.0-9.0); Specific Gravity - Urine 1.015 (1.005-1.025); UMIC TRIGGER UACC YES; Urine Blood Small (1+) (Negative); Urine Ketones 15 mg/dL (Negative); Urine Protein Negative (Neg-Trace)
[2024-01-09 21:38] LABS: VBG Base Excess 3.9 mmol/L; VBG HCO3 25 mmol/L (22-26); VBG pCO2 27 mmHg; VBG pH 7.57 (7.32-7.43); VBG pO2 179 mmHg
[2024-01-09 21:39] LABS: Venous Blood Gas Refer to POC result
[2024-01-09] MEDS: Enoxaparin Sodium 40 MG/0.4 ML SYRINGE SUBCUT (21:46)
[2024-01-09 21:49] LABS: Amphetamine Screen Urine Not Detected (Not Detect); Barbiturates, Urine Not Detected (Not Detect); Benzodiazepines Screen Urine Not Detected (Not Detect); Buprenorphine Scr Not Detected (Not Detect); Cannabinoid Screen Urine Not Detected (Not Detect); Cocaine Screen Urine Not Detected (Not Detect); Fentanyl, urine Not Detected (Not Detect); Methadone Screen, Urine Not Detected (Not Detect); Opiate Screen Urine Not Detected (Not Detect); Oxycodone Screen Urine Not Detected (Not Detect); Phencyclidine Screen Urine Not Detected (Not Detect)
[2024-01-09 22:06] LABS: Bacteria Urine 4+ (None Seen); RBC Urine 0-2 /HPF (0-2); UACC Culture Trigger YES
--- NOTE | 2024-01-09 22:11 | PC.NURSE ---
assist pt to bedside commode, pt hard to redirect at times, gives a blank stare when asked to follow commands. assist back into bed, yellow socks on
--- NOTE | 2024-01-09 23:20 | PC.NURSE ---
assist pt to commode
--- NOTE | 2024-01-09 23:46 | PC.NURSE ---
assist pt to commode, pt removed rectal temp probe
[2024-01-10] MEDS: Azithromycin 500 MG in 0.9 % Sodium Chloride 250 ML 125 MG IV ×2 (00:08→21:56)
[2024-01-10] MEDS: risperiDONE 2 MG TABLET PO ×2 (00:12→20:38)
[2024-01-10] MEDS: Carbidopa/Levodopa 25/100 TABLET 1 TAB PO ×3 (00:12→20:38)
[2024-01-10] MEDS: Atorvastatin Calcium 10 MG TABLET PO ×2 (00:12→20:38)
[2024-01-10] MEDS: QUEtiapine Fumarate 50 MG TABLET PO ×2 (00:12→20:38)
[2024-01-10 01:53] LABS: Acetone 13 mg/dL (NONE DETECTED); Analysis performed on: WHOLE BLOOD; Ethyl Alcohol g/dL (%) NONE DETECTED g/dL(%) (NONE DETECTED); Ethyl Alcohol mg/dL NONE DETECTED (NONE DETECTED); Isopropanol NONE DETECTED (NONE DETECTED)
[2024-01-10 02:27] LABS: Ethylene Glycol NONE DETECTED (NONE DETECTED)
[2024-01-10] MEDS: Lactated Ringers 1,000 ML 150 ML IVCONT (04:13)
[2024-01-10 04:49] LABS: Hematocrit 31.6 % (37.0-47.0); Hemoglobin 10.3 g/dl (12.0-16.0); Mean Corpuscular HGB Conc 32.6 g/dl (31.0-35.0); Mean Corpuscular Hemoglobin 29.4 pg (27.0-33.0); Mean Corpuscular Volume 90.3 fL (80.0-98.0); Mean Platelet Volume 13.3 fL (9.4-12.3); Platelet Count 185 X10*3/uL (160-400); Red Cell Distribution Width 12.8 % (11.0-16.0); White Blood Count 18.3 X10*3/uL (4.8-10.8)
[2024-01-10 04:50] LABS: PLT ABN DIST 1
[2024-01-10 05:17] LABS: Anion Gap 14 (12-20); Blood Urea Nitrogen 33 mg/dL (9-16); Calcium 9.2 mg/dL (8.4-10.2); Carbon Dioxide 22 mmol/L (22-29); Chloride 111 mmol/L (96-108); Creatinine Clr Calc Pharmacy 46.8; Estimated Glomerular Filt Rate 60; Glucose Random 80 mg/dL (60-115); Potassium 3.8 mmol/L (3.3-5.1); Sodium 143 mmol/L (135-145)
[2024-01-10 06:26] VITALS: BP 127/55; PULSE 88; RESP 17; TEMP 36.7; O2SAT 98
--- NOTE | 2024-01-10 06:55 | PC.NURSE ---
Resumed care of patient at 0700, she knows her name/location/month. This RN advised pt to call for help when trying to get up out of bed. Pt is awaiting bed placement at this time, call marcus within reach. Pt offers no complaints of pain at this time
[2024-01-10 07:06] LABS: Glucose, Whole Blood 73 mg/dL (60-115)
[2024-01-10 07:30] LABS: Methyl Alcohol NONE DETECTED
[2024-01-10 08:26] VITALS: PULSE 122
--- NOTE | 2024-01-10 09:04 | MHC.CM.PN ---
CM ATTEMPTED TO MEET W/PT HOWEVER PT RECEIVING NURSING CARE, CM TO REVISIT.
[2024-01-10] MEDS: cefTRIAXone sodium 1 GM VIAL IVPUSH (09:06)
[2024-01-10] MEDS: 0.9 % Sodium Chloride Flush 3 ML SYRINGE IVFLUSH ×2 (09:07→21:58)
[2024-01-10 09:09] VITALS: BP 127/58; PULSE 95; RESP 18; TEMP 36.9; O2SAT 100; BMI 20.1
[2024-01-10 09:09] LABS: Glucose, Whole Blood 99 mg/dL (60-115)
[2024-01-10] MEDS: Cholecalciferol (Vitamin D3) 25 MCG TABLET PO (09:09)
[2024-01-10] MEDS: Fenofibrate 160 MG TABLET PO (09:09)
[2024-01-10] MEDS: risperiDONE 1 MG TABLET PO (09:09)
[2024-01-10 09:20] VITALS: BMI 21.6
--- NOTE | 2024-01-10 09:28 | HO.PM.IMPN ---
Subjective Subjective Date of Service: 01/10/24 Interval History: weak Physical Exam Vital Signs: Vital Signs: Last Vital Signs Temp 98.4 F 01/10/24 09:09 Pulse 95 01/10/24 09:09 Resp 18 01/10/24 09:09 BP 127/58 L 01/10/24 09:09 Pulse Ox 100 01/10/24 09:09 O2 Del Method Room Air 01/10/24 09:09 BMI result Body Mass Index 20.1 General: AO X 3, no acute distress, tremulous, ill appearing Resp: CTA bilateral, no accessory muscles used CVS: S1,S2,RRR GI: soft, non tender, non distended Objective Data Active Medications Acetaminophen (Acetaminophen 325 Mg Tablet) 650 mg PO Q6H PRN PRN Reason: Pain, Mild (Pain Scale 1-3), fever or headache Atorvastatin Calcium (Atorvastatin Calcium 10 Mg Tablet) 10 mg PO BEDTIME [facility] Last Admin: 01/10/24 00:12 Dose: 10 mg Documented By: KAHLIL Benzonatate (Benzonatate 100 Mg Capsule) 100 mg PO TID PRN PRN Reason: Cough Calcium Carbonate (Calcium Carbonate 750 Mg Tab.Chew) 750 mg PO Q4H PRN PRN Reason: Heartburn Carbidopa/Levodopa (Carbidopa/Levodopa 25/100 Tablet) 1 tab PO BID [facility] Last Admin: 01/10/24 09:09 Dose: 1 tab Documented By: ALYSON Ceftriaxone Sodium (Ceftriaxone Sodium 1 Gm Vial) 1 gm IVPUSH Q24H [facility] Last Admin: 01/10/24 09:06 Dose: 1 gm Documented By: ALYSON Enoxaparin Sodium (Enoxaparin Sodium 40 Mg/0.4 Ml Syringe) 40 mg SUBCUT Q24H [facility] Last Admin: 01/09/24 21:46 Dose: 40 mg Documented By: KAHLIL Fenofibrate (Fenofibrate 160 Mg Tablet) 160 mg PO DAILY [facility] Last Admin: 01/10/24 09:09 Dose: 160 mg Documented By: ALYSON Dextrose (D10) 250 mls @ 750 mls/hr IV Q15M PRN PRN Reason: per Hypoglycemia Standing Ord. Last Infusion: 01/09/24 14:58 Dose: Infused Documented By: BRITTANY Lactated Ringer's (Lr) 1,000 mls @ 100 mls/hr IVCONT .Q10H [facility] Last Admin: 01/10/24 04:13 Dose: 150 mls/hr Documented By: KAHLIL Azithromycin 500 mg/ Sodium (Chloride) 250 mls @ 125 mls/hr IV Q24H [facility] Magnesium Hydroxide (Milk Of Magnesia 30 Ml Oral.Susp) 30 ml PO DAILY PRN PRN Reason: Constipation Melatonin (Melatonin 3 Mg Tablet) 6 mg PO BEDTIME PRN PRN Reason: Insomnia Ondansetron HCl (Ondansetron Hcl 4 Mg/2 Ml Vial) 4 mg IVPUSH Q8H PRN PRN Reason: Nausea and Vomiting Quetiapine Fumarate (Quetiapine Fumarate 50 Mg Tablet) 50 mg PO BEDTIME [facility] Last Admin: 01/10/24 00:12 Dose: 50 mg Documented By: KAHLIL Risperidone (Risperidone 1 Mg Tablet) 1 mg PO DAILY [facility] Last Admin: 01/10/24 09:09 Dose: 1 mg Documented By: ALYSON Risperidone (Risperidone 2 Mg Tablet) 2 mg PO BEDTIME [facility] Last Admin: 01/10/24 00:12 Dose: 2 mg Documented By: KAHLIL Sodium Chloride (0.9 % Sodium Chloride Flush 3 Ml Syringe) 3 ml IVFLUSH QSHIFT [facility] Last Admin: 01/10/24 09:07 Dose: 3 ml Documented By: ALYSON Vitamin D (Cholecalciferol (Vitamin D3) 25 Mcg Tablet) 25 mcg PO DAILY [facility] Last Admin: 01/10/24 09:09 Dose: 25 mcg Documented By: ALYSON Labs 01/10/24 04:19 01/10/24 04:19 Labs: Laboratory Results - last 24 hr 01/09/24 01/09/24 01/09/24 13:04 13:05 13:14 MCV 92.3 MCH 29.7 MCHC 32.2 RDW 12.3 Plt Count 211 MPV 12.9 H Immature Gran % (Auto) 0.6 H Neut % (Auto) 89.8 H Lymph % (Auto) 4.2 L [place] % (Auto) 5.3 Eos % (Auto) 0.0 Baso % (Auto) 0.1 Lymph # (Auto) 0.7 L [place] # (Auto) 0.8 Eos # (Auto) 0.0 Baso # (Auto) 0.0 Abs Immat Gran (auto) 0.09 H Absolute Neuts (auto) 13.8 H Absolute Nucleated RBC 0.000 Nucleated RBC % (auto) 0.0 PT 13.5 H INR 1.2 H VBG pH VBG pCO2 VBG pO2 VBG HCO3 VBG O2 Saturation VBG Base Excess Anion Gap 28 H Estim Creat Clear Calc 40.7 Estimated GFR 51 POC Glucose Random Glucose 38 L* Estimat Average Glucose Cancelled Hemoglobin A1c % Cancelled Lactic Acid 1.1 Calcium 10.8 H D Magnesium 2.5 Total Bilirubin 0.7 Direct Bilirubin 0.3 AST 148 H ALT 38 H Alkaline Phosphatase 42 Ammonia 36 Total Creatine Kinase 4873 H Troponin I High Sens 35.4 H B-Natriuretic Peptide 40 Total Protein 7.3 Albumin 4.3 Lipase 9 Beta-Hydroxybutyrate Urine Color Urine Appearance Urine pH Ur Specific [place] Urine Protein Urine Glucose (UA) Urine Ketones Urine Blood Urine Nitrite Ur Leukocyte Esterase Urine RBC Urine WBC Ur Squamous Epith Cells Urine Bacteria Hyaline Casts Salicylates Urine Opiates Screen Ur Buprenorphine Scrn Ur Oxycodone Screen Urine Methadone Screen Urine Fentanyl Screen Acetaminophen Ur Barbiturates Screen Ur Phencyclidine Scrn Ur Amphetamines Screen U Benzodiazepines Scrn Urine Cocaine Screen U Marijuana (THC) Screen Ethylene Glycol Volat Analys Perform On Ethyl Alcohol < 10 Ethyl Alcohol mg/dL Ethyl Alcohol g/dL Methyl Alcohol Level Isopropyl Alc, Quant Acetone Level Influenza Type A (PCR) NEGATIVE Influenza Type B (PCR) NEGATIVE RSV RNA Qual (PCR) NEGATIVE SARS-CoV-2 RNA (RT-PCR) NEGATIVE 01/09/24 01/09/24 01/09/24 14:02 15:15 15:28 MCV MCH MCHC RDW Plt Count MPV Immature Gran % (Auto) Neut % (Auto) Lymph % (Auto) [place] % (Auto) Eos % (Auto) Baso % (Auto) Lymph # (Auto) [place] # (Auto) Eos # (Auto) Baso # (Auto) Abs Immat Gran (auto) Absolute Neuts (auto) Absolute Nucleated RBC Nucleated RBC % (auto) PT INR VBG pH VBG pCO2 VBG pO2 VBG HCO3 VBG O2 Saturation VBG Base Excess Anion Gap 27 H Estim Creat Clear Calc 34.3 Estimated GFR 42 POC Glucose 33 L* 247 H Random Glucose 239 H Estimat Average Glucose Hemoglobin A1c % Lactic Acid Calcium 10.0 D Magnesium Total Bilirubin Direct Bilirubin AST ALT Alkaline Phosphatase Ammonia Total Creatine Kinase Troponin I High Sens 41.9 H B-Natriuretic Peptide Total Protein Albumin Lipase Beta-Hydroxybutyrate 10.23 H Urine Color Urine Appearance Urine pH Ur Specific [place] Urine Protein Urine Glucose (UA) Urine Ketones Urine Blood Urine Nitrite Ur Leukocyte Esterase Urine RBC Urine WBC Ur Squamous Epith Cells Urine Bacteria Hyaline Casts Salicylates Urine Opiates Screen Ur Buprenorphine Scrn Ur Oxycodone Screen Urine Methadone Screen Urine Fentanyl Screen Acetaminophen Ur Barbiturates Screen Ur Phencyclidine Scrn Ur Amphetamines Screen U Benzodiazepines Scrn Urine Cocaine Screen U Marijuana (THC) Screen Ethylene Glycol Volat Analys Perform On Ethyl Alcohol < 10 Ethyl Alcohol mg/dL Ethyl Alcohol g/dL Methyl Alcohol Level Isopropyl Alc, Quant Acetone Level Influenza Type A (PCR) Influenza Type B (PCR) RSV RNA Qual (PCR) SARS-CoV-2 RNA (RT-PCR) 01/09/24 01/09/24 01/09/24 15:34 17:09 17:48 MCV MCH MCHC RDW Plt Count MPV Immature Gran % (Auto) Neut % (Auto) Lymph % (Auto) [place] % (Auto) Eos % (Auto) Baso % (Auto) Lymph # (Auto) [place] # (Auto) Eos # (Auto) Baso # (Auto) Abs Immat Gran (auto) Absolute Neuts (auto) Absolute Nucleated RBC Nucleated RBC % (auto) PT INR VBG pH 7.27 L VBG pCO2 24 VBG pO2 62 VBG HCO3 11 L VBG O2 Saturation 86.0 VBG Base Excess -13.3 Anion Gap 20 Estim Creat Clear Calc 37.5 Estimated GFR 46 POC Glucose Random Glucose 147 H Estimat Average Glucose Hemoglobin A1c % Lactic Acid Calcium 9.6 Magnesium Total Bilirubin Direct Bilirubin AST ALT Alkaline Phosphatase Ammonia Total Creatine Kinase Troponin I High Sens B-Natriuretic Peptide Total Protein Albumin Lipase Beta-Hydroxybutyrate Urine Color Urine Appearance Urine pH Ur Specific [place] Urine Protein Urine Glucose (UA) Urine Ketones Urine Blood Urine Nitrite Ur Leukocyte Esterase Urine RBC Urine WBC Ur Squamous Epith Cells Urine Bacteria Hyaline Casts Salicylates < 5.0 L Urine Opiates Screen Ur Buprenorphine Scrn Ur Oxycodone Screen Urine Methadone Screen Urine Fentanyl Screen Acetaminophen < 3 Ur Barbiturates Screen Ur Phencyclidine Scrn Ur Amphetamines Screen U Benzodiazepines Scrn Urine Cocaine Screen U Marijuana (THC) Screen Ethylene Glycol Volat Analys Perform On WHOLE BLOOD Ethyl Alcohol Ethyl Alcohol mg/dL NONE DETECTED Ethyl Alcohol g/dL NONE DETECTED Methyl Alcohol Level NONE DETECTED Isopropyl Alc, Quant NONE DETECTED Acetone Level 13 H Influenza Type A (PCR) Influenza Type B (PCR) RSV RNA Qual (PCR) SARS-CoV-2 RNA (RT-PCR) 01/09/24 01/09/24 01/09/24 18:04 18:23 21:29 MCV MCH MCHC RDW Plt Count MPV Immature Gran % (Auto) Neut % (Auto) Lymph % (Auto) [place] % (Auto) Eos % (Auto) Baso % (Auto) Lymph # (Auto) [place] # (Auto) Eos # (Auto) Baso # (Auto) Abs Immat Gran (auto) Absolute Neuts (auto) Absolute Nucleated RBC Nucleated RBC % (auto) PT INR VBG pH VBG pCO2 VBG pO2 VBG HCO3 VBG O2 Saturation VBG Base Excess Anion Gap 20 Estim Creat Clear Calc 47.3 Estimated GFR > 60 POC Glucose 144 H Random Glucose 147 H Estimat Average Glucose Hemoglobin A1c % Lactic Acid Calcium 9.0 D Magnesium Total Bilirubin Direct Bilirubin AST ALT Alkaline Phosphatase Ammonia Total Creatine Kinase Troponin I High Sens B-Natriuretic Peptide Total Protein Albumin Lipase Beta-Hydroxybutyrate Urine Color Yellow Urine Appearance Cloudy Urine pH 5.5 Ur Specific [place] 1.015 Urine Protein Negative Urine Glucose (UA) Negative Urine Ketones 15 Urine Blood Small (1+) H Urine Nitrite Positive H Ur Leukocyte Esterase Small (1+) H Urine RBC 0-2 Urine WBC 6-10 H Ur Squamous Epith Cells 6-10 Urine Bacteria 4+ Hyaline Casts 11-20 Salicylates Urine Opiates Screen Not Detected Ur Buprenorphine Scrn Not Detected Ur Oxycodone Screen Not Detected Urine Methadone Screen Not Detected Urine Fentanyl Screen Not Detected Acetaminophen Ur Barbiturates Screen Not Detected Ur Phencyclidine Scrn Not Detected Ur Amphetamines Screen Not Detected U Benzodiazepines Scrn Not Detected Urine Cocaine Screen Not Detected U Marijuana (THC) Screen Not Detected Ethylene Glycol NONE DETECTED Volat Analys Perform On Ethyl Alcohol Ethyl Alcohol mg/dL Ethyl Alcohol g/dL Methyl Alcohol Level Isopropyl Alc, Quant Acetone Level Influenza Type A (PCR) Influenza Type B (PCR) RSV RNA Qual (PCR) SARS-CoV-2 RNA (RT-PCR) 01/09/24 01/10/24 01/10/24 21:34 04:19 07:02 MCV 90.3 MCH 29.4 MCHC 32.6 RDW 12.8 Plt Count 185 MPV 13.3 H Immature Gran % (Auto) Neut % (Auto) Lymph % (Auto) [place] % (Auto) Eos % (Auto) Baso % (Auto) Lymph # (Auto) [place] # (Auto) Eos # (Auto) Baso # (Auto) Abs Immat Gran (auto) Absolute Neuts (auto) Absolute Nucleated RBC 0.000 Nucleated RBC % (auto) 0.0 PT INR VBG pH 7.57 H VBG pCO2 27 VBG pO2 179 VBG HCO3 25 VBG O2 Saturation 100.0 VBG Base Excess 3.9 Anion Gap 14 Estim Creat Clear Calc 46.8 Estimated GFR 60 POC Glucose 73 Random Glucose 80 Estimat Average Glucose Hemoglobin A1c % Lactic Acid Calcium 9.2 Magnesium Total Bilirubin Direct Bilirubin AST ALT Alkaline Phosphatase Ammonia Total Creatine Kinase 5959 H Troponin I High Sens B-Natriuretic Peptide Total Protein Albumin Lipase Beta-Hydroxybutyrate Urine Color Urine Appearance Urine pH Ur Specific [place] Urine Protein Urine Glucose (UA) Urine Ketones Urine Blood Urine Nitrite Ur Leukocyte Esterase Urine RBC Urine WBC Ur Squamous Epith Cells Urine Bacteria Hyaline Casts Salicylates Urine Opiates Screen Ur Buprenorphine Scrn Ur Oxycodone Screen Urine Methadone Screen Urine Fentanyl Screen Acetaminophen Ur Barbiturates Screen Ur Phencyclidine Scrn Ur Amphetamines Screen U Benzodiazepines Scrn Urine Cocaine Screen U Marijuana (THC) Screen Ethylene Glycol Volat Analys Perform On Ethyl Alcohol Ethyl Alcohol mg/dL Ethyl Alcohol g/dL Methyl Alcohol Level Isopropyl Alc, Quant Acetone Level Influenza Type A (PCR) Influenza Type B (PCR) RSV RNA Qual (PCR) SARS-CoV-2 RNA (RT-PCR) 01/10/24 09:05 MCV MCH MCHC RDW Plt Count MPV Immature Gran % (Auto) Neut % (Auto) Lymph % (Auto) [place] % (Auto) Eos % (Auto) Baso % (Auto) Lymph # (Auto) [place] # (Auto) Eos # (Auto) Baso # (Auto) Abs Immat Gran (auto) Absolute Neuts (auto) Absolute Nucleated RBC Nucleated RBC % (auto) PT INR VBG pH VBG pCO2 VBG pO2 VBG HCO3 VBG O2 Saturation VBG Base Excess Anion Gap Estim Creat Clear Calc Estimated GFR POC Glucose 99 Random Glucose Estimat Average Glucose Hemoglobin A1c % Lactic Acid Calcium Magnesium Total Bilirubin Direct Bilirubin AST ALT Alkaline Phosphatase Ammonia Total Creatine Kinase Troponin I High Sens B-Natriuretic Peptide Total Protein Albumin Lipase Beta-Hydroxybutyrate Urine Color Urine Appearance Urine pH Ur Specific [place] Urine Protein Urine Glucose (UA) Urine Ketones Urine Blood Urine Nitrite Ur Leukocyte Esterase Urine RBC Urine WBC Ur Squamous Epith Cells Urine Bacteria Hyaline Casts Salicylates Urine Opiates Screen Ur Buprenorphine Scrn Ur Oxycodone Screen Urine Methadone Screen Urine Fentanyl Screen Acetaminophen Ur Barbiturates Screen Ur Phencyclidine Scrn Ur Amphetamines Screen U Benzodiazepines Scrn Urine Cocaine Screen U Marijuana (THC) Screen Ethylene Glycol Volat Analys Perform On Ethyl Alcohol Ethyl Alcohol mg/dL Ethyl Alcohol g/dL Methyl Alcohol Level Isopropyl Alc, Quant Acetone Level Influenza Type A (PCR) Influenza Type B (PCR) RSV RNA Qual (PCR) SARS-CoV-2 RNA (RT-PCR) Assessment and Plan (1) Hypothermia: Status: Acute Plan 68F PMH htn, parkinsons, hld, ptsd, parkinsons, osteporosis, schizophrenia found on roadside, hypohtermic, hypoglycemic, acidotic Acute metabolic acidosis Likely due to starvation ketosis, resolved with IV fluids Acute rhabdomyolysis Continue IV fluids, monitor CPK Pneumonia Continue ceftriaxone azithromycin Repeat CT chest in 3-6 months No sepsis, hypothermia, tachycardia and leukocytosis due to environmental exposure Schizophrenia continue risperdal and seroquel parkinsons sinemet abnormal gall bladder on ct abd follow up US DVT prophylaxis with lovenox full code reason for continued hospitalization:ivf for rhabdo Quality Stroke Does the patient have a stroke diagnosis?: No VTE Prior VTE?: No VTE Risk Level:: Medical - moderate - high VTE Device Contraindication: Treatment Not Indicated VTE Drug Contraindication: N/A - Med Ordered
[2024-01-10 10:54] LABS: Glucose, Whole Blood 100 mg/dL (60-115)
[2024-01-10 10:56] VITALS: BP 104/56; PULSE 90; RESP 18; TEMP 37.3; O2SAT 99
[2024-01-10 11:18] LABS: Hemoglobin A1C 73.5891 umol/L; Total Hemoglobin (HGBA1C) 2615.8451 umol/L
[2024-01-10 11:19] LABS: Estimated Average Glucose 88 mg/dL; Hemoglobin A1c % 4.7 % (<6.0)
--- NOTE | 2024-01-10 11:50 | HO.SKINPHOTO ---
Location: right buttock
--- NOTE | 2024-01-10 15:38 | PM.GICN ---
History of Present Illness Data of Consult Service Date: 01/10/24 Requesting physician: Daisy Colin Primary Care Provider: Luciana Winters MD HPI Reason for consult: abn imaging 68-year-old female with a PMH significant for?HTN, HLD, parkinsonism, osteoporosis, PTSD, and schizophrenia who I am seeing for assessment for abn imaging. Patient was initially admitted after being brought to the hospital for assessment as she was found at the side of the road and reported as missing. She was noted to be hypothermic, with imaging revealing calcified GB with stones and sludge and labs with pulm nodules, possibly infectious or inflammatory. she denies abdominal pain, nausea, vomtiing, or pain with greasy food or meats. She feels back to her baseline. LFT were normal . CK was markedly elevated. Review of Systems Review of Systems: Constitutional : No Weight loss, No Fever, No Chills ENT/Mouth : No sore throat, No Rhinorrhea Eyes: No Swelling, No Redness Cardiovascular : No Chest Pain, No SOB, No Edema Respiratory : No Cough, No Sputum, No Wheezing Gastrointestinal : see HPI Genitourinary : NO Dysuria, No Urinary Frequency, No Hematuria, No Urgency Musculoskeletal : + joint pain, No Myalgias, No Joint Swelling Skin : No Skin Lesions, No rash Neuro : No Weakness, No Numbness, No Dizziness, No Headache Psych : No Anxiety/Panic, No Depression Heme/Lymph: No Bruising, No Lymphadenopathy Endocrine : No Polyuria, No Polydipsia All other systems reviewed and are negative. [facility] Past Medical History Medical History (Updated 01/11/24 @ 08:31 by Marco A Herrera MD) Porcelain gallbladder Schizoaffective disorder Anxiety HLD (hyperlipidemia) HTN (hypertension) Schizophrenia Family History Pertinent family history: denies FH of liver disease Social History Social History Household Members: Other Household Members Other:: room mate Housing: Apartment Do you presently have visiting nurse or other home services: No Alcohol intake: former Patient Tobacco Use Status: Never used Tobacco Smoked in Last 30 Days: No Use of substances other than those prescribed or required for medical reasons: No Currently Displaying Signs/Symptoms of Drug Intoxication Withdrawal: No Any prior treatment program specific to substance use: No Have you been hit, kicked, punched, or otherwise hurt by someone within the past year? 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 Sexual orientation: Straight/Heterosexual Meds Allergies Allergy/AdvReac Type Severity Reaction Status Date / Time No Known Allergies Allergy Verified 01/09/24 11:07 Active Medications: Current Medications Acetaminophen (Acetaminophen 325 Mg Tablet) 650 mg PO Q6H PRN PRN Reason: Pain, Mild (Pain Scale 1-3), fever or headache Atorvastatin Calcium (Atorvastatin Calcium 10 Mg Tablet) 10 mg PO BEDTIME [facility] Last Admin: 01/10/24 00:12 Dose: 10 mg Benzonatate (Benzonatate 100 Mg Capsule) 100 mg PO TID PRN PRN Reason: Cough Calcium Carbonate (Calcium Carbonate 750 Mg Tab.Chew) 750 mg PO Q4H PRN PRN Reason: Heartburn Carbidopa/Levodopa (Carbidopa/Levodopa 25/100 Tablet) 1 tab PO BID [facility] Last Admin: 01/10/24 09:09 Dose: 1 tab Ceftriaxone Sodium (Ceftriaxone Sodium 1 Gm Vial) 1 gm IVPUSH Q24H [facility] Last Admin: 01/10/24 09:06 Dose: 1 gm Enoxaparin Sodium (Enoxaparin Sodium 40 Mg/0.4 Ml Syringe) 40 mg SUBCUT Q24H [facility] Last Admin: 01/09/24 21:46 Dose: 40 mg Fenofibrate (Fenofibrate 160 Mg Tablet) 160 mg PO DAILY [facility] Last Admin: 01/10/24 09:09 Dose: 160 mg Dextrose (D10) 250 mls @ 750 mls/hr IV Q15M PRN PRN Reason: per Hypoglycemia Standing Ord. Last Infusion: 01/09/24 14:58 Dose: Infused Lactated Ringer's (Lr) 1,000 mls @ 100 mls/hr IVCONT .Q10H [facility] Last Admin: 01/10/24 12:04 Dose: Not Given Azithromycin 500 mg/ Sodium (Chloride) 250 mls @ 125 mls/hr IV Q24H [facility] Magnesium Hydroxide (Milk Of Magnesia 30 Ml Oral.Susp) 30 ml PO DAILY PRN PRN Reason: Constipation Melatonin (Melatonin 3 Mg Tablet) 6 mg PO BEDTIME PRN PRN Reason: Insomnia Ondansetron HCl (Ondansetron Hcl 4 Mg/2 Ml Vial) 4 mg IVPUSH Q8H PRN PRN Reason: Nausea and Vomiting Quetiapine Fumarate (Quetiapine Fumarate 50 Mg Tablet) 50 mg PO BEDTIME [facility] Last Admin: 01/10/24 00:12 Dose: 50 mg Risperidone (Risperidone 1 Mg Tablet) 1 mg PO DAILY [facility] Last Admin: 01/10/24 09:09 Dose: 1 mg Risperidone (Risperidone 2 Mg Tablet) 2 mg PO BEDTIME [facility] Last Admin: 01/10/24 00:12 Dose: 2 mg Sodium Chloride (0.9 % Sodium Chloride Flush 3 Ml Syringe) 3 ml IVFLUSH QSHIFT [facility] Last Admin: 01/10/24 11:32 Dose: Not Given Vitamin D (Cholecalciferol (Vitamin D3) 25 Mcg Tablet) 25 mcg PO DAILY [facility] Last Admin: 01/10/24 09:09 Dose: 25 mcg Home Medications ?Medication ?Instructions ?Recorded ?Confirmed ?Last Taken ?Type cholecalciferol (vitamin D3) 25 25 mcg PO DAILY 12/31/22 01/09/24 12/31/22 History mcg (1,000 unit) tablet alendronate 70 mg tablet 70 mg PO FR 01/09/24 01/09/24 Unknown History carbidopa 25 mg-levodopa 100 mg 1 tab PO BID 01/09/24 01/09/24 Unknown History tablet fenofibrate 160 mg tablet 160 mg PO DAILY 01/09/24 01/09/24 Unknown History metoprolol tartrate 25 mg tablet 25 mg PO BID 01/09/24 01/09/24 Unknown History quetiapine 50 mg tablet 50 mg PO BEDTIME 01/09/24 01/09/24 Unknown History risperidone 1 mg tablet 1 mg PO DAILY 01/09/24 01/09/24 Unknown History risperidone 2 mg tablet 2 mg PO BEDTIME 01/09/24 01/09/24 Unknown History simvastatin 20 mg tablet 20 mg PO BEDTIME 01/09/24 01/09/24 Unknown History Physical Exam Vital Signs: Vital Signs: Last Vital Signs Temp 99.1 F 01/10/24 10:56 Pulse 90 01/10/24 10:56 Resp 18 01/10/24 10:56 BP 104/56 L 01/10/24 10:56 Pulse Ox 99 01/10/24 10:56 O2 Del Method Room Air 01/10/24 10:56 BMI result Body Mass Index 21.6 EXAM: GENERAL: The patient is dishevelled, VITAL SIGNS:see workflow HEENT: Nonicteric sclerae, PERRLA, EOMI. Oropharynx clear. Moist mucous membranes. Conjunctivae appear well perfused. No thyroid mass. CHEST: Chest wall is nontender. HEART: Regular rate and rhythm without murmurs. LUNGS: Clear to auscultation bilaterally. ABDOMEN: Soft, positive bowel sounds, nontender, no organomegaly.no flank tenderness SKIN: No rash, no excessive bruising, petechiae, or purpura. NEUROLOGIC: Cranial nerves II-XII intact without motor/sensory deficit. tremor noted Psych: abn affect, withdrawn, reduced interaction Results Labs 01/11/24 06:30 01/11/24 06:30 Labs: Short CBC 01/10/24 Range/Units 04:19 WBC 18.3 H (4.8-10.8) X10*3/uL Hgb 10.3 L (12.0-16.0) g/dl Hct 31.6 L (37.0-47.0) % Plt Count 185 (160-400) X10*3/uL BMP 01/09/24 01/09/24 01/09/24 15:28 17:48 18:23 Sodium 138 142 140 Potassium 3.6 4.0 3.7 Chloride 102 107 109 H Carbon Dioxide 13 L 19 L 15 L BUN 44 H 42 H 40 H Creatinine 1.27 1.16 0.92 Calcium 10.0 D 9.6 9.0 D 01/10/24 04:19 Sodium 143 Potassium 3.8 Chloride 111 H Carbon Dioxide 22 BUN 33 H Creatinine 0.93 Calcium 9.2 Cardiac Enzymes 01/10/24 Range/Units 04:19 Total Creatine Kinase 5959 H (26-140) U/L Urine 01/09/24 Range/Units 21:29 Urine Color Yellow Urine Appearance Cloudy Urine pH 5.5 (5.0-9.0) Ur Specific [place] 1.015 (1.005-1.025) Urine Protein Negative (Neg-Trace) mg/dL Urine Glucose (UA) Negative (Negative) mg/dL Microbiology Microbiology Results: Microbiology 01/09/24 13:14 Blood - Venous Blood Culture - Preliminary No growth after 24 hours. 01/09/24 13:04 Blood - Venous Blood Culture - Preliminary No growth after 24 hours. 01/09/24 Unknown Urine clean catch - Clean Catch Midstream Urine Culture - Preliminary Culture too young to evaluate. Imaging CT scan - abdomen: Attestation: I personally reviewed and interpreted this imaging study as follows: (calcified wall of GB, stones) Assessment and Plan (1) Porcelain gallbladder: Status: Acute Plan 1/ No evidence of active biliary pathology, cholecystitis, cholangitis etc. She may have porcelain GB and benefit from surgical assessment and removal of GB down the line in the near future PLAN: 1/ Surgical consult , o/p is fine 2/ if any evidence of cholangitis clinically can reassess for ERCP 3/ cont pulm treatment and ABx, as well as fluids for the rhabdo, Procedures Date of Service Date of Service: 01/11/24
[2024-01-10 16:00] VITALS: BP 131/60; PULSE 92; RESP 16; TEMP 36.9; O2SAT 98
--- NOTE | 2024-01-10 16:10 | MHC.CM.PN ---
IMM 01/10/24 Female 68yrs DX Hypothermia, Rhabdo Starvation Ketosis. Patient lives with a roommate. She is independent with all functional mobility. She was found outside lying by the side of the road. She declined the offer to document a HCP. A second conversation re HCP was initiated. The patient agreed to think about it overnight. DP Pending a PT eval Home vs STR patient will arrange transport if dispo is home.
[2024-01-10 16:24] LABS: Glucose, Whole Blood 101 mg/dL (60-115)
[2024-01-10 20:00] VITALS: BP 123/65; PULSE 70; RESP 20; TEMP 37; O2SAT 97
--- NOTE | 2024-01-10 20:26 | HO.WOUND ---
Wound Consult: Initial 68yr old female admitted to [facility] on? 01/09/24- See progress notes and H&P for detailed history. Unable to assess in person will assess at future date and time, Chart review and photo review completed for this note and topical recommendations. Wound consult placed for Right buttock wound POA. Right Buttock - assessment from photo and chart review Etiology: ?Deep Tissue Injury Present on Admission Wound Bed: dark purple tissue appears intact Edges: ? Irregular Goals of Treatment: ?Foam application to protect from friction and aid in pressure redistribution Recommendations: 1. Turn and Reposition every 2 hours and as needed for patient comfort.? Use pillows or wedges to support off loading positions. Limit sit time to 2 hour increments. 2. Off Load all bony prominences with use of pillows and heel boots if needed.? Apply Preventative foams where needed. ? 3. Monitor for incontinence and moisture control, use barrier creams when needed for prevention and treatment. 4. Provide adequate and supplemental nutrition. 5. Order low air loss mattress. 6. Right Buttock - Cleanse with Ph balanced wipes, pat dry. Cover with foam dressing. Peel back and assess Q shift and change 5 days and PRN.
[2024-01-10] MEDS: Lactated Ringers 1,000 ML 100 ML IVCONT (20:36)
[2024-01-10] MEDS: Enoxaparin Sodium 40 MG/0.4 ML SYRINGE SUBCUT (20:38)
[2024-01-10 21:40] LABS: Glucose, Whole Blood 137 mg/dL (60-115)
[2024-01-11] VITALS (7 sets, daily range): BP systolic 109–168; BP diastolic 54–86; PULSE 69–87; RESP 12–20; TEMP 36.1–37.1; O2SAT 96–100; BMI 21.6
[2024-01-11 07:13] LABS: PLT CLUMP 1
[2024-01-11 07:14] LABS: Hematocrit 29.6 % (37.0-47.0); Hemoglobin 9.7 g/dl (12.0-16.0); Mean Corpuscular HGB Conc 32.8 g/dl (31.0-35.0); Mean Corpuscular Hemoglobin 29.9 pg (27.0-33.0); Mean Corpuscular Volume 91.4 fL (80.0-98.0); PLT ABN DIST 1; Red Blood Count 3.24 X10*6/uL (4.20-5.50); Red Cell Distribution Width 13.3 % (11.0-16.0); White Blood Count 5.5 X10*3/uL (4.8-10.8)
[2024-01-11 07:23] LABS: Alanine Aminotransferase 21 U/L (0-31); Albumin Level 2.9 g/dL (3.5-5.0); Alkaline Phosphatase 28 U/L (39-117); Anion Gap 8 (12-20); Aspartate Amino Transferase 162 U/L (5-31); Bilirubin Direct 0.1 mg/dL (0.0-0.5); Bilirubin Total 0.4 mg/dL (0.0-1.0); Blood Urea Nitrogen 14 mg/dL (9-16); Calcium 8.6 mg/dL (8.4-10.2); Carbon Dioxide 26 mmol/L (22-29); Chloride 116 mmol/L (96-108); Creatinine Clr Calc Pharmacy 72.6; Estimated Glomerular Filt Rate > 60; Glucose Fasting 82 mg/dL (60-99); Glucose Random 81 mg/dL (60-115); Potassium 3.6 mmol/L (3.3-5.1); Sodium 146 mmol/L (135-145)
[2024-01-11] MEDS: Carbidopa/Levodopa 25/100 TABLET 1 TAB PO ×2 (08:08→19:55)
[2024-01-11] MEDS: Cholecalciferol (Vitamin D3) 25 MCG TABLET PO (08:08)
[2024-01-11] MEDS: Dextrose 5 % and 0.45 % NaCl 1,000 ML 100 ML IVCONT ×2 (08:08→16:35)
[2024-01-11] MEDS: 0.9 % Sodium Chloride Flush 3 ML SYRINGE IVFLUSH ×2 (08:08→23:58)
[2024-01-11] MEDS: risperiDONE 1 MG TABLET PO (08:08)
[2024-01-11] MEDS: Fenofibrate 160 MG TABLET PO (08:08)
[2024-01-11] MEDS: cefTRIAXone sodium 1 GM VIAL IVPUSH (08:09)
[2024-01-11 08:25] LABS: Glucose, Whole Blood 86 mg/dL (60-115)
--- NOTE | 2024-01-11 08:28 | PM.CNGS ---
History of Present Illness Consult details Consult date: 01/11/24 Narrative: 68-year-old female with multiple medical problems including schizophrenia, hypertension, posttraumatic disorder, admitted on 01/09/2024 because of hypothermia. She was actually found by the road side after being reported missing from her home. 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 I was therefore consulted. She is currently awake and answers some simple questions but is not a good historian. She denies any abdominal pain at this time. Review of Systems Review of Systems: Patient appears to be a poor historian and does not provide a good review of systems Yes Unobtainable due to mental status Constitutional: Constitutional: Reports chills PMFSH Past Medical History Medical History (Updated 01/12/24 @ 14:36 by Daisy Colin MD) Porcelain gallbladder Schizoaffective disorder Anxiety HLD (hyperlipidemia) HTN (hypertension) Schizophrenia Social History Social History Household Members: Other Household Members Other:: room mate Housing: Apartment Do you presently have visiting nurse or other home services: No Alcohol intake: former Patient Tobacco Use Status: Never used Tobacco service: No Current 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 status: 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 Sexual orientation: Straight/Heterosexual Meds Allergies Allergy/AdvReac Type Severity Reaction Status Date / Time No Known Allergies Allergy Verified 01/09/24 11:07 Active Medications: Current Medications Acetaminophen (Acetaminophen 325 Mg Tablet) 650 mg PO Q6H PRN PRN Reason: Pain, Mild (Pain Scale 1-3), fever or headache Atorvastatin Calcium (Atorvastatin Calcium 10 Mg Tablet) 10 mg PO BEDTIME [facility] Last Admin: 01/10/24 20:38 Dose: 10 mg Benzonatate (Benzonatate 100 Mg Capsule) 100 mg PO TID PRN PRN Reason: Cough Calcium Carbonate (Calcium Carbonate 750 Mg Tab.Chew) 750 mg PO Q4H PRN PRN Reason: Heartburn Carbidopa/Levodopa (Carbidopa/Levodopa 25/100 Tablet) 1 tab PO BID [facility] Last Admin: 01/11/24 08:08 Dose: 1 tab Ceftriaxone Sodium (Ceftriaxone Sodium 1 Gm Vial) 1 gm IVPUSH Q24H [facility] Last Admin: 01/11/24 08:09 Dose: 1 gm Enoxaparin Sodium (Enoxaparin Sodium 40 Mg/0.4 Ml Syringe) 40 mg SUBCUT Q24H [facility] Last Admin: 01/10/24 20:38 Dose: 40 mg Fenofibrate (Fenofibrate 160 Mg Tablet) 160 mg PO DAILY [facility] Last Admin: 01/11/24 08:08 Dose: 160 mg Dextrose (D10) 250 mls @ 750 mls/hr IV Q15M PRN PRN Reason: per Hypoglycemia Standing Ord. Last Infusion: 01/09/24 14:58 Dose: Infused Azithromycin 500 mg/ Sodium (Chloride) 250 mls @ 125 mls/hr IV Q24H [facility] Last Infusion: 01/11/24 00:06 Dose: Infused Dextrose/Sodium Chloride (D51/2ns) 1,000 mls @ 100 mls/hr IVCONT .Q10H [facility] Last Admin: 01/11/24 08:08 Dose: 100 mls/hr Magnesium Hydroxide (Milk Of Magnesia 30 Ml Oral.Susp) 30 ml PO DAILY PRN PRN Reason: Constipation Melatonin (Melatonin 3 Mg Tablet) 6 mg PO BEDTIME PRN PRN Reason: Insomnia Ondansetron HCl (Ondansetron Hcl 4 Mg/2 Ml Vial) 4 mg IVPUSH Q8H PRN PRN Reason: Nausea and Vomiting Quetiapine Fumarate (Quetiapine Fumarate 50 Mg Tablet) 50 mg PO BEDTIME [facility] Last Admin: 01/10/24 20:38 Dose: 50 mg Risperidone (Risperidone 1 Mg Tablet) 1 mg PO DAILY [facility] Last Admin: 01/11/24 08:08 Dose: 1 mg Risperidone (Risperidone 2 Mg Tablet) 2 mg PO BEDTIME [facility] Last Admin: 01/10/24 20:38 Dose: 2 mg Sodium Chloride (0.9 % Sodium Chloride Flush 3 Ml Syringe) 3 ml IVFLUSH QSHIFT [facility] Last Admin: 01/11/24 08:08 Dose: 3 ml Vitamin D (Cholecalciferol (Vitamin D3) 25 Mcg Tablet) 25 mcg PO DAILY [facility] Last Admin: 01/11/24 08:08 Dose: 25 mcg Home Medications ?Medication ?Instructions ?Recorded ?Confirmed ?Last Taken ?Type cholecalciferol (vitamin D3) 25 25 mcg PO DAILY 12/31/22 01/09/24 12/31/22 History mcg (1,000 unit) tablet alendronate 70 mg tablet 70 mg PO FR 01/09/24 01/09/24 Unknown History carbidopa 25 mg-levodopa 100 mg 1 tab PO BID 01/09/24 01/09/24 Unknown History tablet fenofibrate 160 mg tablet 160 mg PO DAILY 01/09/24 01/09/24 Unknown History metoprolol tartrate 25 mg tablet 25 mg PO BID 01/09/24 01/09/24 Unknown History quetiapine 50 mg tablet 50 mg PO BEDTIME 01/09/24 01/09/24 Unknown History risperidone 1 mg tablet 1 mg PO DAILY 01/09/24 01/09/24 Unknown History risperidone 2 mg tablet 2 mg PO BEDTIME 01/09/24 01/09/24 Unknown History simvastatin 20 mg tablet 20 mg PO BEDTIME 01/09/24 01/09/24 Unknown History Physical Exam Vital Signs: Vital Signs: Last Vital Signs Temp 96.9 F 01/11/24 07:29 Pulse 82 01/11/24 07:29 Resp 17 01/11/24 07:29 BP 142/83 H 01/11/24 07:29 Pulse Ox 99 01/11/24 07:29 O2 Del Method Room Air 01/11/24 07:29 BMI result Body Mass Index 21.6 Const: General: comfortable and no acute distress Resp: Effort & Inspection: normal respiratory effort Cardio: Rate: regular rate GI: Palpation (GI): Soft to palpation, not firm, nontender and no guarding Results Labs 01/12/24 05:48 01/12/24 05:48 Labs: Abnormal lab results 01/10/24 01/11/24 Range/Units 21:33 06:30 Sodium 146 H (135-145) mmol/L Chloride 116 H (96-108) mmol/L Anion Gap 8 L (12-20) POC Glucose 137 H (60-115) mg/dL AST 162 H (5-31) U/L Alkaline Phosphatase 28 L (39-117) U/L Total Creatine Kinase 2627 H (26-140) U/L Total Protein 5.0 L (6.5-8.0) g/dL Albumin 2.9 L (3.5-5.0) g/dL BMP 01/11/24 06:30 Sodium 146 H Potassium 3.6 Chloride 116 H Carbon Dioxide 26 BUN 14 Creatinine 0.64 Calcium 8.6 D Cardiac Enzymes 01/11/24 Range/Units 06:30 Total Creatine Kinase 2627 H (26-140) U/L Liver Function 01/11/24 Range/Units 06:30 Total Bilirubin 0.4 (0.0-1.0) mg/dL Direct Bilirubin 0.1 (0.0-0.5) mg/dL AST 162 H (5-31) U/L ALT 21 (0-31) U/L Alkaline Phosphatase 28 L (39-117) U/L Albumin 2.9 L (3.5-5.0) g/dL Urine 01/09/24 Range/Units 21:29 Urine Color Yellow Urine Appearance Cloudy Urine pH 5.5 (5.0-9.0) Ur Specific [place] 1.015 (1.005-1.025) Urine Protein Negative (Neg-Trace) mg/dL Urine Glucose (UA) Negative (Negative) mg/dL All other labs normal. Imaging Abdomen CT scan report/results: report reviewed and image reviewed CT scan - pelvis: report reviewed and image reviewed Additional studies: Laboratory Results WBC 18.3 X10*3/uL (4.8-10.8) H 01/10/24 04:19 RBC 3.50 X10*6/uL (4.20-5.50) L 01/10/24 04:19 Hgb 10.3 g/dl (12.0-16.0) L 01/10/24 04:19 Hct 31.6 % (37.0-47.0) L 01/10/24 04:19 MCV 90.3 fL (80.0-98.0) 01/10/24 04:19 MCH 29.4 pg (27.0-33.0) 01/10/24 04:19 MCHC 32.6 g/dl (31.0-35.0) 01/10/24 04:19 RDW 12.8 % (11.0-16.0) 01/10/24 04:19 Plt Count 185 X10*3/uL (160-400) 01/10/24 04:19 MPV Not Reportable 01/11/24 06:30 Immature Gran % (Auto) 0.6 % (0.0-0.4) H 01/09/24 13:05 Neut % (Auto) 89.8 % (45-73) H 01/09/24 13:05 Lymph % (Auto) 4.2 % (20-40) L 01/09/24 13:05 Keith % (Auto) 5.3 % (2-11) 01/09/24 13:05 Eos % (Auto) 0.0 % (0-4) 01/09/24 13:05 Baso % (Auto) 0.1 % (0-2) 01/09/24 13:05 Lymph # (Auto) 0.7 X10*3/uL (1.2-4.9) L 01/09/24 13:05 Keith # (Auto) 0.8 X10*3/uL (0.1-1.2) 01/09/24 13:05 Eos # (Auto) 0.0 X10*3/uL (0.0-0.4) 01/09/24 13:05 Baso # (Auto) 0.0 X10*3/uL (0.0-0.2) 01/09/24 13:05 Abs Immat Gran (auto) 0.09 X10*3/uL (0.00-0.03) H 01/09/24 13:05 Absolute Neuts (auto) 13.8 x10*3/uL (2.0-8.3) H 01/09/24 13:05 Absolute Nucleated RBC 0.000 X10*3/uL (0.0-0.012) 01/10/24 04:19 Nucleated RBC % (auto) 0.0 /100WBC (0.0-0.2) 01/10/24 04:19 PT 13.5 SEC (10.9-12.4) H 01/09/24 13:05 INR 1.2 (0.9-1.1) H 01/09/24 13:05 VBG pH 7.57 (7.32-7.43) H 01/09/24 21:34 VBG pCO2 27 mmHg 01/09/24 21:34 VBG pO2 179 mmHg 01/09/24 21:34 VBG HCO3 25 mmol/L (22-26) 01/09/24 21:34 VBG O2 Saturation 100.0 % 01/09/24 21:34 VBG Base Excess 3.9 mmol/L 01/09/24 21:34 Sodium 146 mmol/L (135-145) H 01/11/24 06:30 Potassium 3.6 mmol/L (3.3-5.1) 01/11/24 06:30 Chloride 116 mmol/L (96-108) H 01/11/24 06:30 Carbon Dioxide 26 mmol/L (22-29) 01/11/24 06:30 Anion Gap 8 (12-20) L 01/11/24 06:30 BUN 14 mg/dL (9-16) 01/11/24 06:30 Creatinine 0.64 mg/dL (0.5-1.4) 01/11/24 06:30 Estim Creat Clear Calc 72.6 01/11/24 06:30 Estimated GFR > 60 01/11/24 06:30 POC Glucose 86 mg/dL (60-115) 01/11/24 07:27 Random Glucose 81 mg/dL (60-115) 01/11/24 06:30 Fasting Glucose 82 mg/dL (60-99) 01/11/24 06:30 Estimat Average Glucose 88 mg/dL 01/10/24 04:19 Hemoglobin A1c % 4.7 % (<6.0) 01/10/24 04:19 Lactic Acid 1.1 mmol/L (0.5-2.0) 01/09/24 13:05 Calcium 8.6 mg/dL (8.4-10.2) D 01/11/24 06:30 Magnesium 2.5 mg/dL (1.6-2.6) 01/09/24 13:04 Total Bilirubin 0.4 mg/dL (0.0-1.0) 01/11/24 06:30 Direct Bilirubin 0.1 mg/dL (0.0-0.5) 01/11/24 06:30 AST 162 U/L (5-31) H 01/11/24 06:30 ALT 21 U/L (0-31) 01/11/24 06:30 Alkaline Phosphatase 28 U/L (39-117) L 01/11/24 06:30 Ammonia 36 umol/L (13-55) 01/09/24 13:05 Total Creatine Kinase 2627 U/L (26-140) H 01/11/24 06:30 Troponin I High Sens 41.9 ng/L (<3.5-17.0) H 01/09/24 15:28 B-Natriuretic Peptide 40 pg/mL (<100) 01/09/24 13:05 Total Protein 5.0 g/dL (6.5-8.0) L 01/11/24 06:30 Albumin 2.9 g/dL (3.5-5.0) L 01/11/24 06:30 Lipase 9 U/L (8-78) 01/09/24 13:04 Beta-Hydroxybutyrate 10.23 mmol/L (0.02-0.27) H 01/09/24 15:28 Urine Color Yellow 01/09/24: Urine Appearance Cloudy 01/09/24: Urine pH 5.5 (5.0-9.0) 01/09/24 21: Ur Specific [place] 1.015 (1.005-1.025) 01/09/24 21: Urine Protein Negative mg/dL (Neg-Trace) 01/09/24: Urine Glucose (UA) Negative mg/dL (Negative) 01/09/24 21: Urine Ketones 15 mg/dL (Negative) 01/09/24 21: Urine Blood Small (1+) (Negative) H 01/09/24: Urine Nitrite Positive (Negative) H 01/09/24 21: Ur Leukocyte Esterase Small (1+) (Negative) H 01/09/24 21: Urine RBC 0-2 /HPF (0-2) 01/09/24 21: Urine WBC 6-10 /HPF (0-5) H 01/09/24 21: Ur Squamous Epith Cells 6-10 /HPF (0-2) 01/09/24 21: Urine Bacteria 4+ (None Seen) 01/09/24 21: Hyaline Casts 11-20 /LPF (0-2) 01/09/24 21: Salicylates < 5.0 mg/dL (15-30) L 01/09/24 17:09 Urine Opiates Screen Not Detected (Not Detect) 01/09/24 21: Ur Buprenorphine Scrn Not Detected ng/mL (Not Detect) 01/09/24 21: Ur Oxycodone Screen Not Detected ng/mL (Not Detect) 01/09/24 21:29 Urine Methadone Screen Not Detected ng/mL (Not Detect) 01/09/24 21:29 Urine Fentanyl Screen Not Detected (Not Detect) 01/09/24 21:29 Acetaminophen < 3 mcg/mL (<30) 01/09/24 17:09 Ur Barbiturates Screen Not Detected (Not Detect) 01/09/24 21:29 Ur Phencyclidine Scrn Not Detected (Not Detect) 01/09/24 21:29 Ur Amphetamines Screen Not Detected (Not Detect) 01/09/24 21:29 U Benzodiazepines Scrn Not Detected (Not Detect) 01/09/24 21:29 Urine Cocaine Screen Not Detected (Not Detect) 01/09/24 21:29 U Marijuana (THC) Screen Not Detected (Not Detect) 01/09/24 21:29 Ethylene Glycol NONE DETECTED mg/L (NONE DETECTED) 01/09/24 18:23 Volat Analys Perform On WHOLE BLOOD 01/09/24 17:09 Ethyl Alcohol < 10 mg/dL 01/09/24 15:28 Ethyl Alcohol mg/dL NONE DETECTED mg/dL (NONE DETECTED) 01/09/24 17:09 Ethyl Alcohol g/dL NONE DETECTED g/dL(%) (NONE DETECTED) 01/09/24 17:09 Methyl Alcohol Level NONE DETECTED 01/09/24 17:09 Isopropyl Alc, Quant NONE DETECTED mg/dL (NONE DETECTED) 01/09/24 17:09 Acetone Level 13 mg/dL (NONE DETECTED) H 01/09/24 17:09 Influenza Type A (PCR) NEGATIVE (Negative) 01/09/24 13:14 Influenza Type B (PCR) NEGATIVE (Negative) 01/09/24 13:14 RSV RNA Qual (PCR) NEGATIVE (Negative) 01/09/24 13:14 SARS-CoV-2 RNA (RT-PCR) NEGATIVE (Negative) 01/09/24 13:14 Impressions Chest X-Ray 01/09/24 11:56 IMPRESSION: 1. Increased vascular prominence, possibly representing moderate vascular congestion. 2. Small faint nodular densities in the right hemithorax with example in the lateral mid right lung measuring approximately 0.[address] scan of the chest should be considered for further evaluation. 3. A 1.1 cm nodule overlying the lower right hemithorax was not appreciated on the prior exam and may represent a nipple shadow versus pulmonary nodule. Repeat view after placement of nipple markers recommended. 4. Redemonstration of focal sclerotic densities along the upper bilateral thoraces as well as overlying the left scapula, possibly within bone and/or soft tissue and of indeterminant etiology. This study was presented today January 09, 2024 for interpretation. Stat results provided at this time as requested by referring provider. Electronically signed by: Sharda Simon MD 01/09/2024 02:55 PM EDT RP Head CT 01/09/24 12:11 IMPRESSION: No acute intracranial pathology. Electronically signed by: Davis Farnsworth MD 01/09/2024 01:53 PM EDT RP Chest CT 01/09/24 15:56 IMPRESSION: 1. Multiple solid pulmonary nodules, many with a tree-in-bud/peribronchial clustered distribution, largest measuring up to 1.2 cm. These are indeterminate, however the tree-in-bud/peribronchial clustered distribution of many of them with associated bronchial wall thickening, mucous plugging and bronchiectasis are suggestive of an infectious/inflammatory etiology. Nevertheless, malignancy cannot be entirely excluded and a short-term follow-up CT chest in 3-6 months is recommended. 2. Biapical nodular-like calcified pleural plaques. Attention on follow-up at 3-6 months recommended. 3. 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 Recommend further characterization with right upper quadrant ultrasound to ensure absence of vascular components/solid mass. Fleischner guidelines were followed. Electronically signed by: Rox Burris MD 01/09/2024 06:03 PM EDT RP Abdomen Ultrasound 01/10/24 08:16 IMPRESSION: Multiple stones and sludge identified in the gallbladder. No pericholecystic fluid appreciated. Limited visualization due to bowel gas and limited distention of gallbladder. GI consultation as well as possible additional imaging with MR/MRCP should be considered to evaluate the effect of concern identified on CT scan of 01/09/2024 Electronically signed by: Sharda Simon MD 01/10/2024 02:29 PM EDT RP Assessment and Plan (1) Porcelain gallbladder: Status: Acute She had CAT scan showing suggestion of porcelain gallbladder with sludge. An ultrasound shows gallstones sludge and no obvious mass was seen although visualization was limited She does not have any tenderness at this time. Recent evidence suggested that the risk of developing gallbladder cancer among patients with porcelain gallbladder much lower than previously believed. Current recommendations state that prophylactic cholecystectomy should not be routinely performed in asymptomatic patients with porcelain gallbladder. The overall medical condition and comorbidities should be considered when prophylactic cholecystectomy is being discussed with the patient. An MRCP may be done as well to further define the gallbladder. The patient has multiple medical issues at this time. She may be followed as an outpatient for the incidental finding of portion gallbladder on her CT scan. Procedures Date of Service Date of Service: 01/16/24
[2024-01-11 08:34] LABS: Mean Platelet Volume 13.4 fL (9.4-12.3); Platelet Count 132 X10*3/uL (160-400)
--- NOTE | 2024-01-11 11:02 | MHC.CLN ---
PT WITH INCREASED NUTRITION RISK R/T PRESSURE INJURY REGULAR DIET PO 100% X1 MEAL RECOMMEND ADDING MAGIC CUP TID TO INCREASE KCALS AND PROMOTE WOUND HEALING SUPP TO PROVIDE 870KCALS, 27G PROTEIN MONITOR PO INTAKE AND ENCOURAGE SUPPLEMENTS
[2024-01-11 11:19] LABS: Glucose, Whole Blood 103 mg/dL (60-115)
--- NOTE | 2024-01-11 14:42 | MHC.CM.PN ---
EMR REVIEWED, PT W/TOMASO, PER HOSPITALIST PT IMPROVING, P.T. RECOMMENDING STR, REFERRAL PLACED, CM WILL CONT TO FOLLOW.
--- NOTE | 2024-01-11 14:53 | HO.PM.IMPN ---
Subjective Subjective Date of Service: 01/11/24 Interval History: Seen and evaluated this morning Feels better overall denies any fever or chills tolerating diet no other events Review of Systems Review of Systems: Yes all other systems are reviewed and are negative Physical Exam Vital Signs: Vital Signs: Last Vital Signs Temp 98.0 F 01/11/24 11:39 Pulse 83 01/11/24 11:39 Resp 17 01/11/24 11:39 BP 114/61 01/11/24 11:39 Pulse Ox 99 01/11/24 11:39 O2 Del Method Room Air 01/11/24 11:39 BMI result Body Mass Index 21.6 Const: Other: Constitutional : interactive, not in distress Cardiovascular : no JVP, no lower extremity edema Respiratory : bilateral chest movement, not in resp distress Gastrointestinal: soft, lax, Non tender Skin : Warm, Dry Neurological : Alert & oriented , No focal deficit Objective Data Active Medications Acetaminophen (Acetaminophen 325 Mg Tablet) 650 mg PO Q6H PRN PRN Reason: Pain, Mild (Pain Scale 1-3), fever or headache Atorvastatin Calcium (Atorvastatin Calcium 10 Mg Tablet) 10 mg PO BEDTIME [facility] Last Admin: 01/10/24 20:38 Dose: 10 mg Documented By: UDAY Benzonatate (Benzonatate 100 Mg Capsule) 100 mg PO TID PRN PRN Reason: Cough Calcium Carbonate (Calcium Carbonate 750 Mg Tab.Chew) 750 mg PO Q4H PRN PRN Reason: Heartburn Carbidopa/Levodopa (Carbidopa/Levodopa 25/100 Tablet) 1 tab PO BID [facility] Last Admin: 01/11/24 08:08 Dose: 1 tab Documented By: EVELYN Ceftriaxone Sodium (Ceftriaxone Sodium 1 Gm Vial) 1 gm IVPUSH Q24H [facility] Last Admin: 01/11/24 08:09 Dose: 1 gm Documented By: EVELYN Enoxaparin Sodium (Enoxaparin Sodium 40 Mg/0.4 Ml Syringe) 40 mg SUBCUT Q24H [facility] Last Admin: 01/10/24 20:38 Dose: 40 mg Documented By: UDAY Fenofibrate (Fenofibrate 160 Mg Tablet) 160 mg PO DAILY [facility] Last Admin: 01/11/24 08:08 Dose: 160 mg Documented By: EVELYN Dextrose (D10) 250 mls @ 750 mls/hr IV Q15M PRN PRN Reason: per Hypoglycemia Standing Ord. Last Infusion: 01/09/24 14:58 Dose: Infused Documented By: BRITTANY Azithromycin 500 mg/ Sodium (Chloride) 250 mls @ 125 mls/hr IV Q24H [facility] Last Infusion: 01/11/24 00:06 Dose: Infused Documented By: UDAY Dextrose/Sodium Chloride (D51/2ns) 1,000 mls @ 100 mls/hr IVCONT .Q10H [facility] Last Admin: 01/11/24 08:08 Dose: 100 mls/hr Documented By: EVELYN Magnesium Hydroxide (Milk Of Magnesia 30 Ml Oral.Susp) 30 ml PO DAILY PRN PRN Reason: Constipation Melatonin (Melatonin 3 Mg Tablet) 6 mg PO BEDTIME PRN PRN Reason: Insomnia Ondansetron HCl (Ondansetron Hcl 4 Mg/2 Ml Vial) 4 mg IVPUSH Q8H PRN PRN Reason: Nausea and Vomiting Quetiapine Fumarate (Quetiapine Fumarate 50 Mg Tablet) 50 mg PO BEDTIME [facility] Last Admin: 01/10/24 20:38 Dose: 50 mg Documented By: UDAY Risperidone (Risperidone 1 Mg Tablet) 1 mg PO DAILY [facility] Last Admin: 01/11/24 08:08 Dose: 1 mg Documented By: EVELYN Risperidone (Risperidone 2 Mg Tablet) 2 mg PO BEDTIME [facility] Last Admin: 01/10/24 20:38 Dose: 2 mg Documented By: UDAY Sodium Chloride (0.9 % Sodium Chloride Flush 3 Ml Syringe) 3 ml IVFLUSH QSHIFT [facility] Last Admin: 01/11/24 14:49 Dose: Not Given Documented By: KODAK Non-Admin Reason: Previously Administered Vitamin D (Cholecalciferol (Vitamin D3) 25 Mcg Tablet) 25 mcg PO DAILY [facility] Last Admin: 01/11/24 08:08 Dose: 25 mcg Documented By: EVELYN Labs 01/11/24 06:30 01/11/24 06:30 Labs: Laboratory Results - last 24 hr 01/10/24 01/10/24 01/11/24 16:19 21:33 06:30 MCV 91.4 MCH 29.9 MCHC 32.8 RDW 13.3 Plt Count 132 L D MPV 13.4 H Absolute Nucleated RBC 0.000 Nucleated RBC % (auto) 0.0 Anion Gap 8 L Estim Creat Clear Calc 72.6 Estimated GFR > 60 POC Glucose 101 137 H Random Glucose 81 Fasting Glucose 82 Calcium 8.6 D Total Bilirubin 0.4 Direct Bilirubin 0.1 AST 162 H ALT 21 Alkaline Phosphatase 28 L Total Creatine Kinase 2627 H Total Protein 5.0 L Albumin 2.9 L 01/11/24 01/11/24 07:27 11:02 MCV MCH MCHC RDW Plt Count MPV Absolute Nucleated RBC Nucleated RBC % (auto) Anion Gap Estim Creat Clear Calc Estimated GFR POC Glucose 86 103 Random Glucose Fasting Glucose Calcium Total Bilirubin Direct Bilirubin AST ALT Alkaline Phosphatase Total Creatine Kinase Total Protein Albumin Microbiology Microbiology Results: Microbiology 01/09/24 Unknown Urine Culture - Preliminary Urine clean catch - Clean Catch Midstream Gram negative ejvon 01/09/24 13:14 Blood Culture - Preliminary Blood - Venous No growth after 24 hours. 01/09/24 13:04 Blood Culture - Preliminary Blood - Venous No growth after 24 hours. Assessment and Plan (1) Porcelain gallbladder: Status: Acute (2) Hypothermia: Status: Acute (3) Hypoglycemia: Status: Acute (4) Rhabdomyolysis: Status: Acute Plan 68F PMH htn, parkinsons, hld, ptsd, parkinsons, osteporosis, schizophrenia found on roadside, hypohtermic, hypoglycemic, acidotic Acute metabolic acidosis Likely due to starvation ketosis, resolved with IV fluids Acute rhabdomyolysis Continue IV fluids CPK trending down to 2000s Pneumonia Continue ceftriaxone azithromycin Repeat CT chest in 3-6 months No sepsis, hypothermia, tachycardia and leukocytosis due to environmental exposure Schizophrenia continue risperdal and seroquel parkinsons sinemet abnormal gall bladder on ct abd US and CT suggestive of Porcelain GB, evaluated by dr Herrera from surgery, to be followed as outpatient DVT prophylaxis with lovenox full code reason for continued hospitalization:ivf for rhabdo Quality Stroke Does the patient have a stroke diagnosis?: No VTE Prior VTE?: No VTE Risk Level:: Medical - moderate - high VTE Device Contraindication: Treatment Not Indicated VTE Drug Contraindication: N/A - Med Ordered
[2024-01-11 16:00] LABS: Glucose, Whole Blood 115 mg/dL (60-115)
[2024-01-11] MEDS: Atorvastatin Calcium 10 MG TABLET PO (19:55)
[2024-01-11] MEDS: Enoxaparin Sodium 40 MG/0.4 ML SYRINGE SUBCUT (19:55)
[2024-01-11] MEDS: QUEtiapine Fumarate 50 MG TABLET PO (19:55)
[2024-01-11] MEDS: risperiDONE 2 MG TABLET PO (19:55)
[2024-01-11 20:38] LABS: Glucose, Whole Blood 119 mg/dL (60-115)
[2024-01-11] MEDS: Azithromycin 500 MG in 0.9 % Sodium Chloride 250 ML 125 MG IV (23:46)
[2024-01-12 03:54] VITALS: BP 147/82; PULSE 80; RESP 20; TEMP 36.7; O2SAT 98
[2024-01-12] MEDS: Dextrose 5 % and 0.45 % NaCl 1,000 ML 100 ML IVCONT (05:23)
[2024-01-12 07:06] LABS: Anion Gap 8 (12-20); Blood Urea Nitrogen 8 mg/dL (9-16); Calcium 8.5 mg/dL (8.4-10.2); Carbon Dioxide 24 mmol/L (22-29); Chloride 114 mmol/L (96-108); Creatinine Clr Calc Pharmacy 80.2; Estimated Glomerular Filt Rate > 60; Glucose Random 82 mg/dL (60-115); Potassium 3.2 mmol/L (3.3-5.1); Sodium 143 mmol/L (135-145)
[2024-01-12 07:28] LABS: Hematocrit 31.1 % (37.0-47.0); Hemoglobin 9.8 g/dl (12.0-16.0); Mean Corpuscular HGB Conc 31.5 g/dl (31.0-35.0); Mean Corpuscular Hemoglobin 29.2 pg (27.0-33.0); Mean Corpuscular Volume 92.6 fL (80.0-98.0); Mean Platelet Volume 13.6 fL (9.4-12.3); Platelet Count 131 X10*3/uL (160-400); Red Blood Count 3.36 X10*6/uL (4.20-5.50); Red Cell Distribution Width 13.1 % (11.0-16.0); White Blood Count 5.4 X10*3/uL (4.8-10.8)
[2024-01-12 07:38] LABS: Glucose, Whole Blood 87 mg/dL (60-115)
[2024-01-12] MEDS: cefTRIAXone sodium 1 GM VIAL IVPUSH (07:53)
[2024-01-12] MEDS: 0.9 % Sodium Chloride Flush 3 ML SYRINGE IVFLUSH (07:53)
[2024-01-12] MEDS: risperiDONE 1 MG TABLET PO (07:54)
[2024-01-12] MEDS: Carbidopa/Levodopa 25/100 TABLET 1 TAB PO (07:54)
[2024-01-12] MEDS: Cholecalciferol (Vitamin D3) 25 MCG TABLET PO (07:54)
[2024-01-12] MEDS: Fenofibrate 160 MG TABLET PO (07:54)
[2024-01-12 08:00] VITALS: BP 138/85; PULSE 87; RESP 18; O2SAT 99
[2024-01-12] MEDS: Potassium Chloride ER 20 MEQ TAB.ER.PRT 40 MEQ PO (08:02)
[2024-01-12 11:29] VITALS: BP 131/64; PULSE 96; RESP 18; TEMP 36.3; O2SAT 98
[2024-01-12 11:39] LABS: Glucose, Whole Blood 101 mg/dL (60-115)
--- NOTE | 2024-01-12 13:21 | HO.WOUND ---
Wound Consult: Follow up 68yr old female admitted to [facility] on? 01/09/24- See progress notes and H&P for detailed history. Wound consult placed for Right buttock wound POA. Patient agreeable to assessment and photo documentation. She denies pain to the buttock and is not aware of a wound to the area. Right Buttock Etiology: ?Deep Tissue Injury in evolution Present on Admission Wound Bed: dark maroon tissue remains nonblanchable - small carmelita of open tissue - firm texture noted - suspect may declare as eschar will monitor - see chart detailed for measurements Edges: ? Irregular remain well defined Periwound - no erythema no fluctuance and no warmth noted Goals of Treatment: ?Triad to allow for autolytic debridement and Foam application to protect from friction and aid in pressure redistribution Recommendations: 1. Turn and Reposition every 2 hours and as needed for patient comfort.? Use pillows or wedges to support off loading positions. Limit sit time to 2 hour increments. 2. Off Load all bony prominences with use of pillows and heel boots if needed.? Apply Preventative foams where needed. ? 3. Monitor for incontinence and moisture control, use barrier creams when needed for prevention and treatment. 4. Provide adequate and supplemental nutrition. 5. Order low air loss mattress. 6. Right Buttock - Cleanse with Ph balanced wipes, pat dry. Apply thin layer of Triad, cover with foam dressing. Peel back and assess Q shift and change 5 days and PRN.
--- NOTE | 2024-01-12 14:35 | PM.DS ---
DS: Providers Provider Date of Service: 01/12/24 Date of admission: 01/09/24 20:31 Date of discharge: 01/12/24 Primary care physician: Luciana Winters MD Consults: 01/10/24 11:47 Consult to Wound Care Routine Reason for consultation: DTI R buttock 01/10/24 14:42 Consult to Gastroenterology Routine Consulting Provider: Nehemias Rivas Reason for consultation: abnormal ct and us 01/11/24 07:40 Consult to General Surgery Routine Consulting Provider: [facility] General Surgeons Reason for consultation: porcelain GB for eval and rec. DS: Diagnosis Discharge Diagnosis (1) Porcelain gallbladder: Status: Acute (2) Hypothermia: Status: Acute (3) Hypoglycemia: Status: Acute (4) Rhabdomyolysis: Status: Acute (5) Metabolic acidosis: Status: Acute (6) UTI (urinary tract infection): Status: Acute (7) Lung nodules: Status: Acute DS: Summary Hospital Course Hospital Course: Admission note HPI Pt is a 68-year-old female with a PMH significant for?HTN, HLD, parkinsonism, osteoporosis, PTSD, and schizophrenia who presents to the ED via EMS after being found on the side of the road?by a bystander after missing person's report filed last night. Patient overall is a rather vague and poor historian and HPI supplemented by chart/provider review and patient's roommate who is at bedside. Roommate reports last saw patient at 14:30 in the apartment's stairwell where she apparently enjoys going up and down the stairs repeatedly. Roommate took a nap and then checked again at 18:00 but patient was nowhere to be found. By 20:00 patient had not returned and roommate called police to file a missing person report. Patient reports she went outside to ?get some walks?. States she ?walked around a lot and stuff but is unable to further specify exactly where she went or what she did. Denies falling, trauma, or injury. Denies auditory or visual hallucinations. No SI/HI. Unclear if patient has VNA services or not. Reports takes home medications ?most of the time?, though can not state when last time was. Patient currently has no acute medical complaints. Denies fever, chills, nausea, vomiting, abdominal pain. No chest pain/pressure, palpitations. Denies shortness of breath, difficulty breathing, or cough. In the ED pt was hypothermic as low as 90.5, tachycardic up to 99 with soft BP as low as 104/55. Labs were significant for leukocytosis of 15.3, bicarb 13, anion gap 28, BUN 43, glucose 38, AST 148, ALT 39, CPK 4873, initial troponin 35.4 with repeat 41.9, and beta hydroxybutyrate 10.23. Initial VBG pH 7.27 with pCO2 44 and bicarb of 11, with repeat pH 7.57, pCO2 27, and bicarb 25. CXR showed increased vascular prominence, small faint nodular densities, possible 1.1 cm nodule on lower right hemithorax, and redemonstration of focal sclerotic densities. CT?of chest found multiple solid pulmonary nodules, many with tree-in-bud/peribronchial cluster distribution most suggestive of infectious/inflammatory etiology, though malignancy not excluded. 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 CTA of head negative for acute intracranial pathology. EKG demonstrated normal sinus rhythm without evidence of significant ST elevations or depressions. Pt was treated with dextrose, lactated Ringer's, and empiric Zosyn. Pt will be admitted to the hospital for treatment and further evaluation of hypothermia, hypoglycemia, rhabdomyolysis, and starvation ketosis. Hospital course Acute rhabdomyolysis complicated with Acute metabolic acidosis Likely due to starvation ketosis and hypothermia without any kidney damage, resolved with IV fluids and warming. Likely from being out in cold for sometime. It was likely confusion related situation as she had UTI. as the infection cleared up her mentation improved back to baseline. CPK trended down as well. She was found to have E.Coli UTI treated with IV antibiotics with good response. CT scan was also concerning for possible pneumonia upon admission but she did not require any Oxygen. Treated with Antibiotics. To continue Azithromycin and Ceftin on discharge. CT scan also reported multiple lung nodules that need to be followed with a Repeat CT chest in 3-6 months For history of Schizophrenia\schizoaffective disorder she was resumed on risperdal and seroquel with good mentaiton and mood. For Hx of Parkinsons she was resumed on Sinemet She was noticed to have abnormal gall bladder on CT abd. US and CT suggestive of Porcelain GB, evaluated by dr Herrera from surgery, to be followed as outpatient for possible CCY. Discharge plan Continue Azithromycin and Ceftin Cough medicine as needed Physical therapy as tolerated Will need a follow up CT scan of the chest in 3-6 months for evaluation of nodules Follow with dr Herrera from surgery for Porcelain gallbladder The patient will likely need less than 30 days of SNF stay. Time Attestation Discharge Coordination Time (in mins): 43 Quality: Safe Use of Opioids Does Pt have an Active Cancer Diagnosis on the Problem List?: No Quality: Stroke Does the patient have a stroke diagnosis?: No Physical Exam Vital Signs: Vital Signs: Last Vital Signs Temp 97.4 F 01/12/24 11:29 Pulse 96 01/12/24 11:29 Resp 18 01/12/24 11:29 BP 131/64 01/12/24 11:29 Pulse Ox 98 01/12/24 11:29 O2 Del Method Room Air 01/12/24 11:29 BMI result Body Mass Index 21.6 Const: Other: Constitutional : interactive, not in distress Cardiovascular : no JVP, no lower extremity edema Respiratory : bilateral chest movement, not in resp distress Gastrointestinal: soft, lax, Non tender Skin : Warm, Dry Neurological : Alert & oriented , No focal deficit DS: Data Data Completed and Pending Labs on day of discharge: Laboratory Results - last 24 hr 01/11/24 01/11/24 01/12/24 15:45 20:34 05:48 WBC 5.4 RBC 3.36 L Hgb 9.8 L Hct 31.1 L MCV 92.6 MCH 29.2 MCHC 31.5 RDW 13.1 Plt Count 131 L MPV 13.6 H Absolute Nucleated RBC 0.000 Nucleated RBC % (auto) 0.0 Sodium 143 Potassium 3.2 L Chloride 114 H Carbon Dioxide 24 Anion Gap 8 L BUN 8 L Creatinine 0.58 Estim Creat Clear Calc 80.2 Estimated GFR > 60 POC Glucose 115 119 H Random Glucose 82 Calcium 8.5 01/12/24 01/12/24 07:32 11:28 WBC RBC Hgb Hct MCV MCH MCHC RDW Plt Count MPV Absolute Nucleated RBC Nucleated RBC % (auto) Sodium Potassium Chloride Carbon Dioxide Anion Gap BUN Creatinine Estim Creat Clear Calc Estimated GFR POC Glucose 87 101 Random Glucose Calcium Preliminary micro results at discharge 01/09/24 13:14 Blood Culture - Preliminary Blood - Venous No growth after 48 hours. 01/09/24 13:04 Blood Culture - Preliminary Blood - Venous No growth after 48 hours. Imaging Chest x-ray: Radiologist's impression: ITS Impressions Chest X-Ray 01/09/24 11:56 IMPRESSION: 1. Increased vascular prominence, possibly representing moderate vascular congestion. 2. Small faint nodular densities in the right hemithorax with example in the lateral mid right lung measuring approximately 0.[address] scan of the chest should be considered for further evaluation. 3. A 1.1 cm nodule overlying the lower right hemithorax was not appreciated on the prior exam and may represent a nipple shadow versus pulmonary nodule. Repeat view after placement of nipple markers recommended. 4. Redemonstration of focal sclerotic densities along the upper bilateral thoraces as well as overlying the left scapula, possibly within bone and/or soft tissue and of indeterminant etiology. This study was presented today January 09, 2024 for interpretation. Stat results provided at this time as requested by referring provider. Electronically signed by: Sharda Simon MD 01/09/2024 02:55 PM EDT RP Head CT 01/09/24 12:11 IMPRESSION: No acute intracranial pathology. Electronically signed by: Davis Farnsworth MD 01/09/2024 01:53 PM EDT RP Chest CT 01/09/24 15:56 IMPRESSION: 1. Multiple solid pulmonary nodules, many with a tree-in-bud/peribronchial clustered distribution, largest measuring up to 1.2 cm. These are indeterminate, however the tree-in-bud/peribronchial clustered distribution of many of them with associated bronchial wall thickening, mucous plugging and bronchiectasis are suggestive of an infectious/inflammatory etiology. Nevertheless, malignancy cannot be entirely excluded and a short-term follow-up CT chest in 3-6 months is recommended. 2. Biapical nodular-like calcified pleural plaques. Attention on follow-up at 3-6 months recommended. 3. 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 Recommend further characterization with right upper quadrant ultrasound to ensure absence of vascular components/solid mass. Fleischner guidelines were followed. Electronically signed by: Rox Burris MD 01/09/2024 06:03 PM EDT RP Abdomen Ultrasound 01/10/24 08:16 IMPRESSION: Multiple stones and sludge identified in the gallbladder. No pericholecystic fluid appreciated. Limited visualization due to bowel gas and limited distention of gallbladder. GI consultation as well as possible additional imaging with MR/MRCP should be considered to evaluate the effect of concern identified on CT scan of 01/09/2024 Electronically signed by: Sharda Simon MD 01/10/2024 02:29 PM EDT RP Discharge Plan Discharge Anticipated Discharge Date/Time: 01/12/24 14:05 Patient Disposition: Xfer [facility] Discharge Diagnosis: Hypothermia UTI Pneumonia Referrals: Luciana Winters MD [Primary Care Provider] - 1 Week Discharge Medications: New benzonatate 100 mg Capsule 100 mg PO TID PRN (Reason: Cough) Qty: 30 0RF azithromycin 500 mg tablet 500 mg PO DAILY 3 Days Qty: 3 0RF cefuroxime axetil 500 mg tablet 500 mg PO BID Qty: 7 0RF Continued cholecalciferol (vitamin D3) 25 mcg (1,000 unit) Tablet 25 mcg PO DAILY risperidone 2 mg tablet 2 mg PO BEDTIME simvastatin 20 mg tablet 20 mg PO BEDTIME carbidopa-levodopa 25-100 mg tablet 1 tab PO BID risperidone 1 mg tablet 1 mg PO DAILY metoprolol tartrate 25 mg tablet 25 mg PO BID fenofibrate 160 mg tablet 160 mg PO DAILY quetiapine 50 mg tablet 50 mg PO BEDTIME alendronate 70 mg tablet 70 mg PO FR Discharge Orders: Discharge Order (Routine); Ordered 01/12/24 Ordered By: Daisy Colin Diet: Advance to usual diet Activity on Discharge: As tolerated Stand Alone Forms: Patient Portal Discharge page Print Language: Turkish Care Plan Goals: Continue Azithromycin and Ceftin Cough medicine as needed Physical therapy as tolerated Will need a follow up CT scan of the chest in 3-6 months for evaluation of nodules Health Concerns: Urine infection, Pneumonia Plan of Treatment: Antibiotics Physical therapy Assessment: as above
[2024-01-12 16:00] VITALS: BP 129/81; PULSE 102; RESP 18; TEMP 37.2; O2SAT 97
[2024-01-12 16:13] VITALS: PULSE 122
[2024-01-12 17:08] LABS: Glucose, Whole Blood 136 mg/dL (60-115)
[2024-01-12 19:48] VITALS: BP 128/72; PULSE 87; RESP 18; TEMP 36.7; O2SAT 100
--- NOTE | 2024-01-13 09:14 | P.CDIM_ITS ---
PROVIDER RESPONSE TEXT: To clarify, the appropriate diagnosis supported by the clinical indicators: Deep Tissue Injury Right buttock: confirmed QUERY TEXT: PHYSICIAN'S DOCUMENTATION REQUEST Date of Query: 01/11/2024 12:43 PM EDT Patient Name: Melia Harp Admit Date: 01/10/2024 Dear Daisy Colin MD, A review of the medical record indicates additional documentation may be needed. Please review below and update the documentation accordingly. Clinical Indicators: Wound care assessment notes: Deep Tissue Injury Right buttock Off load pressure and foam application recommended. Based on the above, could you please provide further information regarding the ulcer/wound/injury: Deep Tissue Injury Right buttock possible, probable, suspected, etc. Other (explain) Clinically unable to determine (explain) Thank you, Jolene Raygoza, CCS, CDIS Use of terms such as suspected, likely, concern for, or probable (associated with a specific diagnosi s that is being evaluated, monitored, or treated as if it exists) are acceptable and can be coded in the inpatient se tting, when documented at the time of discharge. Please use your independent medical judgment in providing your response. THIS QUERY IS PART OF THE PERMANENT MEDICAL RECORD
== END 2024-01-12 20:12 | disposition skilled nursing facility (03) | DRG 689 ==
LOC: HO.ED 15:14 → HO.EDOVER 20:48 → HO.IMC 01-10 07:44
PROVIDERS: Internal Medicine; Physician Assistant; Admitting Provider Student in an Organized Health Care Education/Training Program; Emergency Provider Emergency Medicine; PCP Family Medicine; Visit Provider Student in an Organized Health Care Education/Training Program
DX: N39.0 Urinary tract infection, site not specified (principal); J18.9 Pneumonia, unspecified organism; M62.82 Rhabdomyolysis; K82.8 Other specified diseases of gallbladder; J92.9 Pleural plaque without asbestos; F20.9 Schizophrenia, unspecified; L89.316 Pressure-induced deep tissue damage of right buttock; I10 Essential (primary) hypertension; E78.5 Hyperlipidemia, unspecified; T68.XXXA Hypothermia, initial encounter; X31.XXXA Exposure to excessive natural cold, initial encounter; Z20.822 Contact with and (suspected) exposure to COVID-19; B96.20 Unspecified Escherichia coli [E. coli] as the cause of diseases classified elsewhere; G20.C Parkinsonism, unspecified; E88.89 Other specified metabolic disorders; Z79.899 Other long term (current) drug therapy
CPT/HCPCS: 0241U; 36415; 70450; 71045; 71250; 76705; 80048; 80076; 80143; 80179; 80307; 80320; 81001; 82010; 82140; 82550; 82693; 82803; 82947; 83036; 83605; 83690; 83735; 83880; 84484; 85025; 85027; 85610; 87040; 87086; 87088; 87186; 93005; 97110; 97116; 97162; 99285; J0456; J0696; J1650; J2543; J7120

== ENCOUNTER → 2024-01-09 11:55 | Outpatient (BNV) | payer MEDICARE, MEDICAID, SELFPAY | PROVIDERS: Emergency Provider Emergency Medicine; PCP Family Medicine; Visit Provider Internal Medicine | DX: R53.1 Weakness (principal); R41.82 Altered mental status, unspecified; R94.31 Abnormal electrocardiogram [ECG] [EKG] | CPT/HCPCS: 93010 ==

== ENCOUNTER → 2024-01-09 20:31 | Outpatient (BNV) | payer MEDICARE, MEDICAID, SELFPAY | PROVIDERS: Admitting Provider Student in an Organized Health Care Education/Training Program; Emergency Provider Emergency Medicine; PCP Family Medicine; Visit Provider Internal Medicine | DX: E16.2 Hypoglycemia, unspecified (principal); M62.82 Rhabdomyolysis; E87.21 Acute metabolic acidosis; T68.XXXA Hypothermia, initial encounter | CPT/HCPCS: 99222; 99232; 99239 ==

== ENCOUNTER → 2024-01-09 20:31 | Outpatient (BNV) | payer MEDICARE, MEDICAID, SELFPAY | PROVIDERS: Admitting Provider Student in an Organized Health Care Education/Training Program; Emergency Provider Emergency Medicine; PCP Family Medicine; Visit Provider Internal Medicine Gastroenterology | DX: K82.8 Other specified diseases of gallbladder (principal) | CPT/HCPCS: 99222 ==

== ENCOUNTER → 2024-01-09 20:31 | Outpatient (BNV) | payer MEDICARE, MEDICAID, SELFPAY | PROVIDERS: Admitting Provider Student in an Organized Health Care Education/Training Program; Emergency Provider Emergency Medicine; PCP Family Medicine; Visit Provider Surgery | DX: K82.8 Other specified diseases of gallbladder (principal) | CPT/HCPCS: 99222 ==

== ENCOUNTER 2024-04-09 14:20 | Outpatient (REF) | payer MEDICARE, MEDICAID, SELFPAY ==
[2024-04-09 16:19] LABS: Appearance Urine Clear; Color Urine Yellow; Glucose Urine UA Negative (Negative); Leukocyte Esterase Urine Trace (Negative); Nitrite Urine Negative (Negative); Specific Gravity - Urine 1.015 (1.005-1.025); UMIC TRIGGER UACC YES; Urine Blood Negative (Negative); Urine Ketones Negative (Negative); Urine Protein Negative (Neg-Trace)
[2024-04-09 16:22] LABS: Bacteria Urine None Seen (None Seen); RBC Urine 0-2 /HPF (0-2); Squamous Epithelial Cell Urine 0-2 /HPF (0-2); WBC Urine 0-5 /HPF (0-5)
== END 2024-04-09 14:21 | disposition home or self-care (01) ==
LOC: HO.HHCL 14:20
PROVIDERS: Visit Provider Registered Nurse Psychiatric/Mental Health
DX: N39.0 Urinary tract infection, site not specified (principal)
CPT/HCPCS: 81001

== ENCOUNTER 2024-05-11 14:10 | Outpatient (REF) | payer MEDICARE, MEDICAID, SELFPAY ==
--- OUTSIDE RECORDS SUMMARY | 2024-05-11 14:12 | XMS_ITS | Continuity of Care Document ---
Author Organization [facility], [place] [facility] Address [address] [place] [address] Phone Care Team Providers Care Fire Hydrant Operator Name Role Phone Unavailable Unavailable Unavailable Allergies, Adverse Reactions, Alerts Substance Reaction Status Criticality DIPHENHYDRAMINE HCL Itching(moderate)Itching(moderate) Active No Information soap Itching(mild)Itching(mild) Active N o Information povidone-iodine Itching(mild)Itching(mild) Active No Information Medications Medication Instructions Dosage Effective Dates (start [...] - 6 hours as needed - Active Procedures Procedure Date Offic/outpt E&m Estab Mod-nh 2 17 Offic/outpt E&m Estab Low-mod 7 Offic/outpt E&m [facility] [place]-[facility] 45 7 Advance Directives Directive Yes / No Effective Date File Name No Information Encounters Encounter Description Practice Location Reason(s) For Visit Diagnoses Date Provider [facility], [address], [place], [place], [id number], tel:[phone] [facility] No Information 8 No Information Offic/outpt E&m Estab [facility] [place]-[facility] 2 [employer], [address], [place], [place], [id number], tel:[phone] [employer] hypertension (chief complaint)ast hma (chief complaint)TRAVIS D (chief complaint)col d sores (chief complaint) Essential (primary) hypertensionGERD w/o esophagitisUnspecifie d asthma, uncomplicatedHerpes simplex labialis 7 No Information Offic/outpt E&m Estab Low-mod [employer], [address], [place], [place], [id number], [place] tel:[phone] [employer] Establish care (chief complaint)Hyp ertension (chief complaint)TRAVIS D (chief complaint)ast hma (chief complaint) Essential (primary) hypertensionGERD w/o esophagitisUnspecifie d asthma, uncomplicated 7 No Information [employer], [address], [place], [place], [id number], [place] tel:[phone] [facility] Essential (primary) hypertensionUnspecifi ed asthma, uncomplicated 7 No Information Offic/outpt E&m [facility] 45 [employer], [address], [place], [place], [id number], [place] tel:[phone] [facility] Cough (chief complaint)hyp ertension (chief complaint)TRAVIS D (chief complaint) Bronchopneumonia, unspecified organismGERD w/o esophagitis 7 [facility] [address] [place], [place], [id number], [place]. tel:[phone] Family History Family Member Type Diagnosis Age At Onset No Information Payers Payer name Insurance type Covered alliance party ID Maria Eugenia pineda(s) [employer] O BL [id number] Social History Type Description Quantity Date Captured Comments Sex Female Smoking Status No Information Chief Complaint And Reason For Visit No Information Plan Of Treatment Date Type Action Status Goal Pneumo (2 yrs or older) (PPV 23). Due on due Goal Spirometry. Due on due Goal FOBT. Due on due Goal Zoster vaccine. Due on due Goal Depression screening. Due on due Goal Td vaccine. Due on due Goal H&P. Due [...] home and may be moving back to [place] however they are uncertain where. The pt's mother recently broke her hip so the pt has been going back and forth to [place] for that to. Cold sores are occurring [...] worse. Last EGD 3 years ago in [place]. Hypertension It is currently stable. Risk factors include age over age 60 and obesity. The hypertension is exacerbated by nothing. Pertinent negatives include chest pain, dyspnea, fatigue, headache, irregular heartbeat/palpitations and visual disturbances. Additional information: Currently on lisinopril-HCTZ 20-12.5mg daily. Tolerating medication. Establish care The pt is here t o est [facility]. Last seen by PCP about 9 months [...] hours for last 3 days. hypertension (comments) [facility]. Has refills on HTN medications.PMHX- HTN, [...]
--- OUTSIDE RECORDS SUMMARY | 2024-05-11 14:12 | XMS_ITS ---
Author Organization [facility] Address [address] [place] [id number] Care Team Providers Care Operations Program Manager Name Role Phone Vianey GONZALEZ, Luciana Primary Care Provider Jani Ramírez Jr REASON FOR VISIT recall colonoscopy Encounters Encounter Location Date Provider Diagnosis [facility] [address] [place] [id number] 2023 Jani Orosco Jr PLAN OF TREATMENT No Information
--- OUTSIDE RECORDS SUMMARY | 2024-05-11 14:12 | XMS_ITS | Encounter Summary ---
Author Organization [facility] Address [address] [place] [address] Care Team Providers Care Doorshaker Name Role Phone Simon Katz MD Primary Care Provider [phone] Encounter Details Date Type Department Care Team (Late st Contact Info) Description 03/07/2024 Lab Requisition [facility] - Main Lab [address] [place] [address] Simon Katz MD 38 [facility] [address] [place], [address] Essential (primary) hypertension; Poikiloderma vasculare atrophicans; Encounter for examination for admission to educational institution Social History Tobacco Use Types Packs/Day Years Used Date Smoking Tobacco: Never Assessed Comments Unknown Sex and Gender Information Value Date Recorded Sex Assigned at Not on file Legal Sex Female 11:48 AM EST Gender Identity Not on file Sexual Orientation Not on file documented as of this encounter Plan of Treatment Not on file documented as of this encounter Procedures Procedure Name Priority Date/Time Associated Diagnosis Comments COMPLETE BLOOD COUNT Routine 03/07/2024 8:35 AM EST Essential (primary) hypertension Poikiloderma vasculare atrophicans Encounter for examination for admission to educational institution BASIC METABOLIC PANEL Routine 03/07/2024 8:35 AM EST Essential (primary) hypertension Poikiloderma vasculare atrophicans Encounter for examination for admission to educational institution documented in this encounter Results * (ABNORMAL) Basic metabolic panel (03/07/2024 8:35 AM EST) Sodium 144 133 - 145 mmol/L LAB CHEMISTRY METHOD 03/07/2024 12:26 PM EST [facility] Potassium 3.8 3.5 - 5.5 mmol/L LAB CHEMISTRY METHOD 03/07/2024 12:26 PM [facility] Chloride 109 96 - 110 mmol/L LAB CHEMISTRY METHOD 03/07/2024 12:26 PM [facility] CO2 26 21 - 32 mmol/L LAB CHEMISTRY METHOD 03/07/2024 12:26 PM [facility] Anion Gap 9 3 - 11 LAB CHEMISTRY METHOD 03/07/2024 12:26 PM [facility] Glucose 111(H) 70 - 100 mg/dL LAB CHEMISTRY METHOD 03/07/2024 12:26 PM [facility] BUN 16 5 - 25 mg/dL LAB CHEMISTRY METHOD 03/07/2024 12:26 PM [facility] Creatinine 0.72 0.50 - 1.10 mg/dL LAB CHEMISTRY METHOD 03/07/2024 12:26 PM [facility] eGFR 91 >=60 mL/min/1. 73m2 LAB CHEMISTRY METHOD 03/07/2024 12:26 PM [facility] Comment:Calculation based on the??Chronic Kidney Disease Epidemiology Collaboration (CKD-EPI) equation refit??without adjustment for race. BUN/Creatinine Ratio 22.2 LAB CHEMISTRY METHOD 03/07/2024 12:26 PM [facility] Calcium 9.2 8.5 - 10.5 mg/dL LAB CHEMISTRY METHOD 03/07/2024 12:26 PM [facility] Blood Venous blood specimen / Unknown Venipuncture / Unknown 03/07/2024 8:35 AM EST 03/07/2024 10:21 AM EST us Simon Katz MD LAB BLOOD ORDERABLES Final Resul t [facility] [address] [place] [address], * (ABNORMAL) Complete blood count (03/07/2024 8:35 AM EST) [facility] WBC 5.4 4.8 - 10.8 K/mcL LAB HEMETOLOGY METHOD 03/07/2024 12:32 PM [facility] RBC 3.70(L) 3.80 - 4.80 M/mcL LAB HEMETOLOGY METHOD 03/07/2024 12:32 PM [facility] Hemoglobin 10.7(L) 11.5 - 16.0 g/dL LAB HEMETOLOGY METHOD 03/07/2024 12:32 PM [facility] Hematocrit 33.9(L) 35.0 - 47.0 % LAB HEMETOLOGY METHOD 03/07/2024 12:32 PM [facility] MCV 92.4 79.0 - 98.0 FL LAB HEMETOLOGY METHOD 03/07/2024 12:32 PM [facility] MCH 29.2 27.0 - 32.0 pcg LAB HEMETOLOGY METHOD 03/07/2024 12:32 PM [facility] MCHC 31.6(L) 32.0 - 37.0 g/dL LAB HEMETOLOGY METHOD 03/07/2024 12:32 PM [facility] RDW 13.3 11.0 - 15.0 % LAB HEMETOLOGY METHOD 03/07/2024 12:32 PM [facility] Platelets 164 130 - 400 K/mcL LAB HEMETOLOGY METHOD 03/07/2024 12:32 PM [facility] MPV 13.2(H) 7.0 - 11.0 FL LAB HEMETOLOGY METHOD 03/07/2024 12:32 PM [facility] NRBC 0.0 <1.0 % LAB HEMETOLOGY METHOD 03/07/2024 12:32 PM [facility] NRBC Absolute 0.00 <0.10 K/mcL LAB HEMETOLOGY METHOD 03/07/2024 12:32 PM EST [facility] Blood Venous blood specimen / Unknown Venipuncture / Unknown 03/07/2024 8:35 AM EST 03/07/2024 10:21 AM EST us Simon Katz MD LAB BLOOD ORDERABLES Final Resul t [facility] [address] [place] [address], documented in this encounter Visit Diagnoses Diagnosis Essential (primary) hypertension Unspecified essential hypertension Poikiloderma vasculare atrophicans Encounter for examination for admission to [facility] institution documented in this encounter Care Teams Doorshaker Relationship Specialty Start Date End Date Simon Katz MD [address] [place] [address] [address] [place], [phone] PCP - General Family Medicine 02/03/24 documented as of this encounter
--- OUTSIDE RECORDS SUMMARY | 2024-05-11 14:12 | XMS_ITS | Encounter Summary ---
Author Organization [employer] Address [address] [place] [address] 7 [place] [address] Care Team Providers Care Counting Machine Operator Name Role Phone Luciana Winters MD Primary Care Provider [phone] Reason for Visit * Reason Onset Date Comments Nurse Triage 05/27/2023 Encounter Details Date Type Department Care Team ([facility] st Contact Info) Description 05/27/2023 Telephone [facility] [address] [place], [place] [phone] Luciana Winters MD [address] [place], [place] [phone] Nurse Triage Social History Tobacco Use Types Packs/Day Years Used Date Smoking Tobacco: Former Cigarettes Passive Smoke Exposure: Past Smokeless Tobacco: Never Alcohol Use Standard Drinks/Week Comments Never 0 (1 standard drink = 0.6 oz pur e alcohol) Depression Answer Date Recorded Patient Health Questionnaire-9 Score 0 09/20/2022 Housing Stability Answer Date Recorded What is your housing situation today? I have viet ramos 01/12/[address] you li ve. Do you have problems with any of the following? None of the above 01/12/2023 Food Insecurity Answer Date Recorded Within the past 12 months, y ou worried that your food would run out before you got money to buy more: Never True 01/12/2023 Within the past 12 months,th e food you bought just didn't last and you didn't have enough money to get more: Never True Transportation Answer Date Recorded In the past 12 months, has l ack of transportation kept you from medical appts, meetings, work or from getting things needed for daily living? No 01/12/2023 Utilities Answer Date Recorded In the past 12 months, has t he electric, gas, oil or water company threatened to shut off services in your home? No 01/12/2023 Depression Answer Date Recorded Patient Health Questionnaire-2 Score 0 09/20/2022 Comments Unknown Sex and Gender Information Value Date Recorded Sex Assigned at Female 01/25/2022 10:19 AM EDT Legal Sex Female 10:19 AM EDT Gender Identity Female 01/25/2022 10:19 AM EDT Sexual Orientation Straight 01/25/2022 10 :19 AM EDT documented as of this encounter Miscellaneous Notes * Telephone Encounter - Carmen Meeks - 05/27/2023 11:15 AM EST Symptoms: Anxiety or Panic Attack, Depression Outcome: Transfer to a nurse or provider NOW! Reason: Acting confused The caller accepted this outcome documented in this encounter Plan of Treatment Upcoming Encounters Date Type Department Care Team (Late st Contact Info) Description 05/21/2024 1:00 PM EST Office Visit [facility] [address] [place] [address] Luciana Winters MD [address] [place] [address] documented as of this encounter Visit Diagnoses Not on filedocumented in this encounter Additional Health Concerns Assessment Noted Time PHQ-9 Depression Total Score: 0 09/21/19 23 11:48 AM EDT documented as of this encounter Care Teams Counting Machine Operator Relationship Specialty Start Date End Date Luciana Winters MD [address] [place] [address] PCP - General Family Medicine [facility] documented as of this encounter
--- OUTSIDE RECORDS SUMMARY | 2024-05-11 14:12 | XMS_ITS | Encounter Summary ---
Author Organization [facility] Address [address] [place] [address] Care Team Providers Care Contact Centre Supervisor Name Role Phone Simon Katz MD Primary Care Provider [phone] Encounter Details Date Type Department Care Team (Late st Contact Info) Description 03/20/2024 Lab Requisition [facility] - Main Lab [address] [facility] [place] [address] Simon Katz MD [address] [place] [address] [address] [place], [phone] Essential (primary) hypertension Social History Tobacco Use Types Packs/Day Years Used Date Smoking Tobacco: Never Assessed Comments Unknown Sex and Gender Information Value Date Recorded Sex Assigned at Not on file Legal Sex Female 11:48 AM EST Gender Identity Not on file Sexual Orientation Not on file documented as of this encounter Plan of Treatment Not on file documented as of this encounter Visit Diagnoses Diagnosis Essential (primary) hypertension Unspecified essential hypertension documented in this encounter Care Teams Contact Centre Supervisor Relationship Specialty Start Date End Date Simon Katz MD [address] [facility] [address] [place], [phone] PCP - General Family Medicine 02/03/24 documented as of this encounter
--- OUTSIDE RECORDS SUMMARY | 2024-05-11 14:12 | XMS_ITS | Encounter Summary ---
Author Organization [employer] Address [address] [place] [address] 7 [place] [address] Care Team Providers Care Insurance Sales Manager Name Role Phone Luciana Winters MD Primary Care Provider [phone] Reason for Visit * Reason Onset Date Comments Referral 09/03/2022 Encounter Details Date Type Department Care Team ([facility] st Contact Info) Description 09/03/2022 Telephone [facility]INE [address] [place] [phone] Luciana Winters MD [address] [place] [address] Referral Social History Tobacco Use Types Packs/Day Years Used Date Smoking Tobacco: Never Smokeless Tobacco: Never Alcohol Use Standard Drinks/Week Comments Never 0 (1 standard drink = 0.6 oz pur e alcohol) Comments Unknown Sex and Gender Information Value Date Recorded Sex Assigned at Female 01/25/2022 10:19 AM EDT Legal Sex Female 10:19 AM EDT Gender Identity Female 01/25/2022 10:19 AM EDT Sexual Orientation Straight 01/25/2022 10 :19 AM EDT COVID-19 Exposure Response Date Recorded In the last 10 days, have yo u been in contact with someone who was confirmed or suspected to have Coronavirus/COVID-19? No / Unsure 08/17/2022 3:24 PM EDT documented as of this encounter Miscellaneous Notes * Telephone Encounter - Kajal Llamas RN - 09/03/2022 1:46 PM EDT TC to Loree Nurse Practitioner in regards to referral for Neurology for symptoms of shaking and shuffling. No answer, number not in service. Loree to call prn. If she calls back please ask what office she is from. * Telephone Encounter - Salvador Singh - 09/03/2022 9:14 AM EDT Tc from [facility] Nurse Practitioner requesting a referral for Neurology for symptoms of shaking andshuffling. Please contact Loree at [phone] Ext [phone] documented in this encounter Plan of Treatment Upcoming Encounters Date Type Department Care Team (Late st Contact Info) Description 05/21/2024 1:00 PM EST Office Visit [facility] [address] [place] [address] Luciana Winters MD [address] [place] [address] documented as of this encounter Visit Diagnoses Not on filedocumented in this encounter Care Teams Insurance Sales Manager Relationship Specialty Start Date End Date Luciana Winters MD [address] [place] [phone] PCP - General Family Medicine 03/28/18 [facility] documented as of this encounter
--- OUTSIDE RECORDS SUMMARY | 2024-05-11 14:12 | XMS_ITS | Encounter Summary ---
Author Organization [facility] Address [address] [place] [address] Care Team Providers Care Solar Installation Helper Name Role Phone Simon Katz MD Primary Care Provider [phone] Encounter Details Date Type Department Care Team (Late st Contact Info) Description 02/29/2024 Lab Requisition [facility] - Main Lab [address] [place] [address] Simon Katz MD [address] [place] [address] [address] [place], [phone] Parkinsonism, unspecified (CMS/HCC) Social History Tobacco Use Types Packs/Day Years [...] Associated Diagnosis Comments COMPLETE BLOOD COUNT Routine 02/29/2024 6:57 AM EST Parkinsonism, unspecified (CMS/HCC) COMPREHENSIVE METABOLIC PANEL Routine 02/29/2024 6:57 AM EST Parkinsonism, unspecified (CMS/HCC) documented in this encounter Results * (ABNORMAL) Comprehensive metabolic panel (02/29/2024 6:57 AM EST) Sodium 144 133 - 145 mmol/L LAB CHEMISTRY METHOD 02/29/2024 12:14 PM EST [facility] Potassium 4.3 3.5 - 5.5 mmol/L LAB CHEMISTRY METHOD 02/29/2024 12:14 PM EST [facility] Chloride 112(H) 96 - 110 mmol/L LAB CHEMISTRY METHOD 02/29/2024 12:14 PM [facility] CO2 25 21 - 32 mmol/L LAB CHEMISTRY METHOD 02/29/2024 12:14 PM [facility] Anion Gap 7 3 - 11 LAB CHEMISTRY METHOD 02/29/2024 12:14 PM [facility] Glucose 66(L) 70 - 100 mg/dL LAB CHEMISTRY METHOD 02/29/2024 12:14 PM [facility] BUN 23 5 - 25 mg/dL LAB CHEMISTRY METHOD 02/29/2024 12:14 PM [facility] Creatinine 0.74 0.50 - 1.10 mg/dL LAB CHEMISTRY METHOD 02/29/2024 12:14 PM [facility] eGFR 88 >=60 mL/min/1. 73m2 LAB CHEMISTRY METHOD 02/29/2024 12:14 PM [facility] Comment:Calculation based on the??Chronic Kidney Disease Epidemiology Collaboration (CKD-EPI) equation refit??without adjustment for race. BUN/Creatinine Ratio 31.1 LAB CHEMISTRY METHOD 02/29/2024 12:14 PM [facility] Calcium 8.9 8.5 - 10.5 mg/dL LAB CHEMISTRY METHOD 02/29/2024 12:14 PM [facility] AST (SGOT) 22 10 - 42 unit/L LAB CHEMISTRY METHOD 02/29/2024 12:14 PM [facility] ALT (SGPT) 24 10 - 60 unit/L LAB CHEMISTRY METHOD 02/29/2024 12:14 PM [facility] Alkaline Phosphatase 36(L) 42 - 121 unit/L LAB CHEMISTRY METHOD 02/29/2024 12:14 PM [facility] Total Protein 5.8(L) 6.0 - 8.0 g/dL LAB CHEMISTRY METHOD 02/29/2024 12:14 PM [facility] Albumin 3.2 3.2 - 5.0 g/dL LAB CHEMISTRY METHOD 02/29/2024 12:14 PM [facility] Total Bilirubin 0.4 0.0 - 1.4 mg/dL LAB CHEMISTRY METHOD 02/29/2024 12:14 PM [facility] Blood Venous blood specimen / Unknown Venipuncture / Unknown 02/29/2024 6:57 AM EST 02/29/2024 10:58 AM EST us Simon Katz MD LAB BLOOD ORDERABLES Final Resul t [facility] [address] [place] [address], [place] [phone] * (ABNORMAL) Complete blood count (02/29/2024 6:57 AM EST) WBC 5.6 4.8 - 10.8 K/mcL LAB HEMETOLOGY METHOD 02/29/2024 11:46 AM [facility] RBC 3.70(L) 3.80 - 4.80 M/mcL LAB HEMETOLOGY METHOD 02/29/2024 11:46 AM [facility] Hemoglobin 10.8(L) 11.5 - 16.0 g/dL LAB HEMETOLOGY METHOD 02/29/2024 11:46 AM [facility] Hematocrit 34.4(L) 35.0 - 47.0 % LAB HEMETOLOGY METHOD 02/29/2024 11:46 AM [facility] MCV 93.7 79.0 - 98.0 FL LAB HEMETOLOGY METHOD 02/29/2024 11:46 AM [facility] MCH 29.4 27.0 - 32.0 pcg LAB HEMETOLOGY METHOD 02/29/2024 11:46 AM [facility] MCHC 31.4(L) 32.0 - 37.0 g/dL LAB HEMETOLOGY METHOD 02/29/2024 11:46 AM EST [facility] RDW 13.4 11.0 - 15.0 % LAB HEMETOLOGY METHOD 02/29/2024 11:46 AM [facility] Platelets 203 130 - 400 K/mcL LAB HEMETOLOGY METHOD 02/29/2024 11:46 AM [facility] MPV 13.6(H) 7.0 - 11.0 FL LAB HEMETOLOGY METHOD 02/29/2024 11:46 AM EST [facility] NRBC 0.0 <1.0 % LAB HEMETOLOGY METHOD 02/29/2024 11:46 AM [facility] NRBC Absolute 0.00 <0.10 K/mcL LAB HEMETOLOGY METHOD 02/29/2024 11:46 AM [facility] Blood Venous blood specimen / Unknown Venipuncture / Unknown 02/29/2024 6:57 AM EST 02/29/2024 10:58 AM EST us Simon Katz MD LAB BLOOD ORDERABLES Final Resul t [facility] [address] [place] [address], documented in this encounter Visit Diagnoses Diagnosis Parkinsonism, unspecified (CMS/HCC) documented in this encounter Care Teams Solar Installation Helper Relationship Specialty Start Date End Date Simon Katz MD [address] [place] [address] [address] [place], [phone] PCP - General Family Medicine 02/03/24 documented as of this encounter
--- OUTSIDE RECORDS SUMMARY | 2024-05-11 14:12 | XMS_ITS | Encounter Summary ---
Author Organization [facility] Address [address] [place] [address] Care Team Providers Care Individual Pension Adviser Name Role Phone Simon Katz MD Primary Care Provider [phone] Encounter Details Date Type Department Care Team (Late st Contact Info) Description 02/03/2024 Lab Requisition [facility] - Main Lab [address] [place] [address] Simon Katz MD [address] [place] [address] [address] [place], [phone] Essential (primary) hypertension Social History Tobacco Use [...] Procedure Name Priority Date/Time Associated Diagnosis Comments BASIC METABOLIC PANEL Routine 02/06/2024 5:47 AM EST Essential (primary) hypertension documented in this encounter Results * (ABNORMAL) Basic metabolic panel (02/06/2024 5:47 AM EST) Sodium 146(H) 133 - 145 mmol/L LAB CHEMISTRY METHOD 02/06/2024 11:02 AM EST [facility] Potassium 3.9 3.5 - 5.5 mmol/L LAB CHEMISTRY METHOD 02/06/2024 11:02 AM EST [facility] Chloride 114(H) 96 - 110 mmol/L LAB CHEMISTRY METHOD 02/06/2024 11:02 AM EST [facility] CO2 26 21 - 32 mmol/L LAB CHEMISTRY METHOD 02/06/2024 11:02 AM [facility] Anion Gap 6 3 - 11 LAB CHEMISTRY METHOD 02/06/2024 11:02 AM [facility] Glucose 70 70 - 100 mg/dL LAB CHEMISTRY METHOD 02/06/2024 11:02 AM [facility] BUN 20 5 - 25 mg/dL LAB CHEMISTRY METHOD 02/06/2024 11:02 AM [facility] Creatinine 0.72 0.50 - 1.10 mg/dL LAB CHEMISTRY METHOD 02/06/2024 11:02 AM [facility] eGFR 91 >=60 mL/min/1. 73m2 LAB CHEMISTRY METHOD 02/06/2024 11:02 AM [facility] Comment:Calculation based on the??Chronic Kidney Disease Epidemiology Collaboration (CKD-EPI) equation refit??without adjustment for race. BUN/Creatinine Ratio 27.8 LAB CHEMISTRY METHOD 02/06/2024 11:02 AM [facility] Calcium 8.9 8.5 - 10.5 mg/dL LAB CHEMISTRY METHOD 02/06/2024 11:02 AM [facility] Blood Venous blood specimen / Unknown Venipuncture / Unknown 02/06/2024 5:47 AM EST 02/06/2024 9:44 AM EST us Simon Katz MD LAB BLOOD ORDERABLES Final Resul t [facility] [address] [place] [address], documented in this encounter Visit Diagnoses Diagnosis Essential (primary) hypertension Unspecified essential hypertension documented in this encounter Care Teams Individual Pension Adviser Relationship Specialty Start Date End Date Simon Katz MD [address] [place] [address], [phone] PCP - General Family Medicine 02/03/24 documented as of this encounter
--- OUTSIDE RECORDS SUMMARY | 2024-05-11 14:13 | XMS_ITS | Clinical Summary ---
Author Organization [employer] Address [address] [place] [address] [address] [place] [address] Care Team Providers Care Stop Attacher Name Role Phone Luciana Winters MD Primary Care Provider [phone] Allergies No known active allergies Medications * This document contains information received from the source organization and may not represent a complete record from that organization. cyanocobalamin (Vitamin B-12) 1000 MCG tablet Take 1 tablet by mouth in the morning. 0 Active benztropine (Cogentin) 0.5 MG tablet Take 0.5 mg by mouth 2 times daily. 3 Active carbidopa-levod opa (Sinemet) 25-100 MG tablet TAKE 1 TABLET BY MOUTH IN THE MORNING AND AT NOON 3 Active QUEtiapine (SEROquel) 50 MG tablet TAKE 1 TABLET BY MOUTH DAILY AT BEDTIME FOR SLEEP 3 Active risperiDONE (RisperDAL) 1 MG tablet Take 1 tablet by mouth daily 3 Active risperiDONE (RisperDAL) 2 MG tablet Take 1 tablet by mouth at bedtime Active ammonium lactate (Amlactin) 12 % cream Apply topically if needed for dry skin. 385 g 1 4 12/20/19 25 Active mirtazapine (Remeron) 7.5 MG tablet Take 1 tablet (7.5 mg) by mouth at bedtime. 30 tablet 3 4 Active alendronate (Fosamax) 70 MG tablet TAKE 1 TABLET WEEKLY DIRECTED. SEE PACKAGE FOR ADDITIONAL INSTRUCTIONS 12 tablet 1 5 Active fenofibrate (Triglide) 160 MG tabletIndicatio ns:Hypertriglyc eridemia TAKE 1 TABLET EVERY DAY 90 tablet 3 5 Active simvastatin (Zocor) 20 MG tablet Take 1 tablet (20 mg) by mouth in the evening. 90 tablet 3 5 Active cholecalciferol (Vitamin D3) 25 MCG (1000 UT) tablet Take 1 tablet (25 mcg) by mouth in the morning. 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 - will follow up with CT scan Protein calorie malnutrition 12/30/2023 Assessment & Plan (04/09/2024 5:50 AM EST): - prescribed nutritional supplement; will check its status - continue vitamin supplementation, periodic lab, and frequent meal and increase calorie-dense food intake Assessment & Plan (12/30/2023 5:08 AM EDT): - will prescribe nutritional supplement - continue vitamin supplementation, periodic lab, and frequent meal and increase calorie-dense food intake Tachycardia 09/13/2023 Assessment & Plan (09/13/2023 10:19 AM EDT): -HR 120 09/13/2023 -pt did not want to have any testing done -discussed referring for Holter monitor incase pt changes her mind Weight loss 07/25/2023 Assessment & Plan (12/30/2023 5:04 AM EDT): -Discussed about nutritional supplements. -Patient was initially hesitant about script for Boost or Ensure. Patient is now accepting prescription. Assessment & Plan (07/25/2023 11:07 AM EDT): -Discussed about nutritional supplements. -Patient will call after trying nutritional supplements of her favorite flavor. Basal cell carcinoma (BCC) of skin of face 09/22 Assessment & Plan (04/09/2024 5:52 AM EST): - Followed by Dr. Soriano, last seen in Dec 2022 - s/p excision of the forehead lesion by Dr. Wright in 2021 - continue sun protection Assessment & Plan (12/20/2023 2:28 PM EDT): - Followed by Dr. Soriano, last seen in Dec 2022 - s/p excision of the forehead lesion by Dr. Wright in 2021 - continue sun protection Assessment & Plan (09/13/2023 8:48 AM EDT): - Followed by Dr. Soriano, last seen in Dec 2022 - s/p excision of the forehead lesion by Dr. Wright in 2021 - continue sun protection Assessment & Plan (07/25/2023 9:19 PM EDT): - Followed by Dr. Soriano, last seen in Dec 2022 - s/p excision of the forehead lesion by Dr. Wright in 2021 - continue sun protection Assessment & Plan (03/12/2023 6:03 PM EST): - Followed by Dr. Soriano - s/p excision of the forehead lesion by Dr. Wright in 2021 - upcoming appt with Dr. Soriano - continue sun protection Assessment & Plan (11/01/2022 3:50 PM EDT): - Followed by Dr. Soriano - s/p excision of the forehead lesion by Dr. Wright in 2021 - upcoming appt with Dr. Soriano - continue sun protection Assessment & Plan (09/22/2022 6:06 AM EDT): - Followed by Dr. Soriano - s/p excision of the forehead lesion by Dr. Wright - upcoming appt with Dr. Soriano - continue sun protection Osteoporosis 09/22/2022 Assessment & Plan (04/09/2024 5:47 AM EST): -DEXA scan in Mar 2021 with lowest T score on -3.4. pt start alendronate 70 mg weekly since Mar 2021. -continue weight bearing exercises -DEXA on 10/26/23 T-score -0.9 - continue adequate vitamin D and calcium intake Assessment & Plan (12/30/2023 5:01 AM EDT): -DEXA scan in Mar 2021 with lowest T score on -3.4. pt start alendronate 70 mg weekly since Mar 2021. -continue weight bearing exercises -DEXA on 10/26/23 T-score -0.9 - continue adequate vitamin D and calcium intake Assessment & Plan (09/13/2023 8:47 AM EDT): -last DEXA scan in Mar 2021 with lowest T score on -3.4. pt start alendronate 70 mg weekly since Mar 2021. will repeat DEXA scan in 1-2 years -continue weight bearing exercises - continue adequate vitamin D and calcium intake Assessment & Plan (07/25/2023 11:04 AM EDT): -last DEXA scan in Mar 2021 with lowest T score on -3.4. pt start alendronate 70 mg weekly since Mar 2021. will repeat DEXA scan in 1-2 years -continue weight bearing exercises - continue adequate vitamin D and calcium intake Assessment & Plan (03/12/2023 5:52 PM EST): -last DEXA scan in Mar 2021 with lowest T score on -3.4. pt start alendronate 70 mg weekly since Mar 2021. will repeat DEXA scan in 1-2 years -continue weight bearing exercises - continue adequate vitamin D and calcium intake Assessment & Plan (11/01/2022 3:43 PM EDT): -last DEXA scan in Mar 2021 with lowest T score on -3.4. pt start alendronate 70 mg weekly since Mar 2021. will repeat DEXA scan in 1-2 years -continue weight bearing exercises - continue adequate vitamin D and calcium intake Assessment & Plan (09/22/2022 6:15 AM EDT): -last DEXA scan in Mar 2021 with lowest T score on -3.4. pt start alendronate 70 mg weekly since Mar 2021. will repeat DEXA scan in 1-2 years -continue weight bearing exercises Tremor 09/22/2022 Assessment & Plan (04/09/2024 5:53 AM EST): - EPS / TD - continue Benztropine - evaluated by neurologist, Dr. Patterson in Oct 2022 Dx Parkinsonism. Rx carbidopa-levodopa. - consider MRI, although pt will probably refuse - continue carbidopa-levodopa - check whether she has a follow up with neurologist Assessment & Plan (07/25/2023 11:08 AM EDT): - EPS / TD - continue Benztropine - evaluated by neurologist, Dr. Patterson in Oct 2022 Dx Parkinsonism. Rx carbidopa-levodopa. - consider MRI, although pt will probably refuse - continue carbidopa-levodopa and follow up with neurologist Assessment & Plan (03/12/2023 5:59 PM EST): - EPS / TD - continue Benztropine - evaluated by neurologist, Dr. Patterson in Oct 2022 Dx Parkinsonism. Rx carbidopa-levodopa. - consider MRI, although pt will probably refuse - continue carbidopa-levodopa and follow up with neurologist Assessment & Plan (11/01/2022 3:47 PM EDT): - EPS / TD - continue Benztropine - discussed with pt's S provider and agreed to refer pt to a neurologist as the provider's concern for tremor - consider MRI, although pt will probably refuse - upcoming appt with neurologist Assessment & Plan (09/22/2022 6:34 AM EDT): - EPS / TD - continue Benztropine - called pt's [facility] provider and left a message to call back so that we can discuss treatment plan - consider MRI Essential hypertension 01/30/2015 Assessment & Plan (04/09/2024 5:35 AM EST): -Goal BP < 150/90 per JNC-8 and < 130/80 per ACC/AHA guideline (Treatment threshold >= 140/90 ) -BP suboptimal level today -Continue working on lifestyle modifications -Recommended self-monitoring BP. -Need to reconcile her medications. Previously on metoprolol succinate 25 mg bid, which was discontinued when she was in short-term rehab. However, patient is unable to tell me which medication she is taking regularly. -Treatment Hx: Previously elevated BP, white-coat HTN, BP seems to have improved with recent weight loss. Previously on amlodipine, which was switched during last hospitalization. Metoprolol was discontinued during recent hospitalization. Assessment & Plan (12/20/2023 2:26 PM EDT): -Goal BP < 150/90 per JNC-8 and < 130/80 per ACC/AHA guideline (Treatment threshold >= 140/90 ) -BP well-controlled today -Continue working on lifestyle modifications -Recommended self-monitoring BP. -Continue current medications: Metoprolol tartrate 25 mg twice daily -Treatment Hx: Previously elevated BP, white-coat HTN, BP seems to have improved with recent weight loss. Previously on amlodipine, which was switched during last hospitalization -Follow-up in 3-6 mo or sooner prn Assessment & Plan (09/13/2023 8:46 AM EDT): -Goal BP < 150/90 per JNC-8 and < 130/80 per ACC/AHA guideline (Treatment threshold >= 140/90 ) -BP well-controlled today -Continue working on lifestyle modifications -Recommended self-monitoring BP. -Continue current medications: Metoprolol tartrate 25 mg twice daily -Treatment Hx: Previously elevated BP, white-coat HTN, BP seems to have improved with recent weight loss. Previously on amlodipine, which was switched during last hospitalization -Follow-up in 3-6 mo or sooner prn Assessment & Plan (07/25/2023 11:03 AM EDT): -Goal BP < 150/90 per JNC-8 and < 130/80 per ACC/AHA guideline (Treatment threshold >= 140/90 ) -BP well-controlled today -Continue working on lifestyle modifications -Recommended self-monitoring BP. -Continue current medications: Metoprolol tartrate 25 mg twice daily -Treatment Hx: Previously elevated BP, white-coat HTN, BP seems to have improved with recent weight loss. Previously on amlodipine, which was switched during last hospitalization -Follow-up in 3-6 mo or sooner prn Assessment & Plan (03/12/2023 5:51 PM EST): -Goal BP < 150/90 per JNC-8 and < 130/80 per ACC/AHA guideline (Treatment threshold >= 140/90 ) -BP well-controlled today -Continue working on lifestyle modifications -Recommended self-monitoring BP. -Continue current medications: Metoprolol tartrate 25 mg twice daily -Treatment Hx: Previously elevated BP, white-coat HTN, BP seems to have improved with recent weight loss. Previously on amlodipine, which was switched during last hospitalization -Follow-up in 3-6 mo or sooner prn Assessment & Plan (11/01/2022 3:38 PM EDT): -Goal BP < 150/90 per JNC-8 and < 130/80 per ACC/AHA guideline (Treatment threshold >= ) -BP well-controlled today -Continue working on lifestyle modifications -Recommended self-monitoring BP. -Continue current medications: Amlodipine 2.5 mg daily -Treatment Hx: Previously elevated BP, white-coat HTN, BP seems to have improved with recent weight loss -Follow up in 3-6 mo, sooner if any problem arises Assessment & Plan (09/22/2022 6:08 AM EDT): -Goal BP < 150/90 per JNC-8 and < 130/80 per ACC/AHA guideline (Treatment threshold >= ) -BP well-controlled today -Continue working on lifestyle modifications -Recommended self-monitoring BP. -Continue current medications: Amlodipine 2.5 mg daily -Treatment Hx: Previously elevated BP, white-coat HTN, BP seems to have improved with recent weight loss -Follow up in 3-6 mo, sooner if any problem arises Tubular adenoma of colon 01/30/2015 Assessment & Plan (12/30/2023 5:01 AM EDT): - GI Dr. Boswell, last seen in Oct 2023 - 2006 tubular adenoma - 2013 tubular adenoma and hyperplastic polyp - 10/21/17 hyperplastic polyp - Pt is uncertain when she is having a colonoscopy yet Assessment & Plan (07/25/2023 9:14 PM EDT): - GI Dr. Boswell, last seen in 2017 - 2006 tubular adenoma - 2013 tubular adenoma and hyperplastic polyp - 10/21/17 hyperplastic polyp - Pt is uncertain when she is due for next colonoscopy, but she would like to wait until her license / ID card issue is solved Assessment & Plan (03/12/2023 5:51 PM EST): - GI Dr. Boswell, last seen in 2017 - 2006 tubular adenoma - 2013 tubular adenoma and hyperplastic polyp - 10/21/17 hyperplastic polyp - Pt is uncertain when she is due for next colonoscopy, but she would like to wait until her license issue is solved Assessment & Plan (11/01/2022 3:38 PM EDT): - GI Dr. Boswell, last seen in 2017 - 2006 tubular adenoma - 2013 tubular adenoma and hyperplastic polyp - 10/21/17 hyperplastic polyp - Pt is uncertain when she is due for next colonoscopy, but she would like to wait until her license issue is solved Assessment & Plan (09/22/2022 6:33 AM EDT): - GI Dr. Boswell, last seen in 2017 - 2006 tubular adenoma - 2013 tubular adenoma and hyperplastic polyp - 10/21/17 hyperplastic polyp - Pt is uncertain when she is due for next colonoscopy, but she would like to wait until her license issue is solved Dyslipidemia 12/03/2011 Assessment & Plan (04/09/2024 5:52 AM EST): -Most recent fasting lipid profile: 09/06/23 Total cholesterol 135; TG 50; HDL 47; LDL 78 -Current medications: simvastatin 20 mg daily - Treatment history: Previously on fenofibrate, which was discontinued - Emphasized the importance of lifestyle modification. Assessment & Plan (12/30/2023 5:03 AM EDT): -Most recent fasting lipid profile: 09/06/23 Total cholesterol 135; TG 50; HDL 47; LDL 78 -Current medications: simvastatin 20 mg daily - Treatment history: Previously on fenofibrate, which was discontinued - Emphasized the importance of lifestyle modification. Assessment & Plan (09/13/2023 8:48 AM EDT): -Most recent fasting lipid profile: 10/26/22 Total cholesterol 149; TG 95; HDL 46; LDL 84 -Current medications: simvastatin 20 mg daily and fenofibrate 160 mg daily - Update lab - Will consider discontinuing fibrate - Emphasized the importance of lifestyle modification. Assessment & Plan (07/25/2023 11:04 AM EDT): -Most recent fasting lipid profile: 10/26/22 Total cholesterol 149; TG 95; HDL 46; LDL 84 -Current medications: simvastatin 20 mg daily and fenofibrate 160 mg daily - Update lab - Will consider discontinuing fibrate - Emphasized the importance of lifestyle modification. Assessment & Plan (03/12/2023 6:02 PM EST): -Most recent fasting lipid profile: 10/26/22 Total cholesterol 149; TG 95; HDL 46; LDL 84 -Current medications: simvastatin 20 mg daily and fenofibrate 160 mg daily - Update lab - Will consider discontinuing fibrate - Emphasized the importance of lifestyle modification. Assessment & Plan (11/01/2022 3:52 PM EDT): -Most recent fasting lipid profile: 10/26/22 Total cholesterol 149; TG 95; HDL 46; LDL 84 -Current medications: simvastatin 20 mg daily and fenofibrate 160 mg daily - Update lab - Will consider discontinuing fibrate - Emphasized the importance of lifestyle modification. Assessment & Plan (09/22/2022 6:37 AM EDT): -Most recent fasting lipid profile: 10/21/20 Total cholesterol 153; TG 92; HDL 46; LDL 88 -Current medications: simvastatin 20 mg daily and fenofibrate 160 mg daily - Update lab - Will consider discontinuing fibrate and starting statin (Hx transaminitis) - Emphasized the importance of lifestyle modification. Undifferentiated schizophrenia 12/03/2011 Assessment & Plan (04/09/2024 5:51 AM EST): -Differential Dx Schizoaffective disorder -Hx 2nd daughter committed a suicide in 1999 -Hospitalization for attempted self-harm in Nov 2022 and February 2023 in [facility] psych unit -[facility] providers: [facility] at [address] [place] [address] -Seeing counselor monthly and psych prescriber every 2-3 mo -Most recent medications prescribed by [facility] provide: Risperidone 1 mg in the morning, 2 mg in the evening; benztropine 0.5 mg twice daily; quetiapine 50 mg at bedtime; -Previously tried medications: Perphenazine 8 mg daily; Benztropine, Quetiapine -Contacted patient's behavioral health service provider, Loree. She will reach out to patient's roommate. Assessment & Plan (12/20/2023 2:28 PM EDT): -Differential Dx Schizoaffective disorder -Hx 2nd daughter committed a suicide in 1999 -Hospitalization for attempted self-harm in Nov 2022 and February 2023 in [facility] psych unit -[facility] providers: [facility] at [address] [place] [address]. [place], [place] -Seeing counselor monthly and psych prescriber every 2-3 mo -Current medication: Risperidone 1 mg in the morning, 2 mg in the evening; benztropine 0.5 mg twice daily; quetiapine 50 mg at bedtime; -Previous medications: Perphenazine 8 mg daily; Benztropine, Quetiapine -Continue current medication and recommendations by [facility] providers. Assessment & Plan (09/13/2023 8:48 AM EDT): -Differential Dx Schizoaffective disorder -Hx 2nd daughter committed a suicide in 1999 -Hospitalization for attempted self-harm in Nov 2022 and February 2023 in [facility] psych unit -[facility] providers: [facility] at [address] [place] [address] -Seeing counselor monthly and psych prescriber every 2-3 mo -Current medication: Risperidone 1 mg in the morning, 2 mg in the evening; benztropine 0.5 mg twice daily; quetiapine 50 mg at bedtime; -Previous medications: Perphenazine 8 mg daily; Benztropine, Quetiapine -Continue current medication and recommendations by S providers. Assessment & Plan (07/25/2023 9:17 PM EDT): -Differential Dx Schizoaffective disorder -Hx 2nd daughter committed a suicide in 1999 -Hospitalization for attempted self-harm in Nov 2022 and February 2023 in [facility] psych unit -[facility] providers: [facility] at [address] [place] [address] -Seeing counselor monthly and psych prescriber every 2-3 mo -Current medication: Risperidone 1 mg in the morning, 2 mg in the evening; benztropine 0.5 mg twice daily; quetiapine 50 mg at bedtime; -Previous medications: Perphenazine 8 mg daily; Benztropine, Quetiapine -Continue current medication and recommendations by [facility] providers. Assessment & Plan (03/12/2023 5:57 PM EST): -Differential Dx Schizoaffective disorder -Hx 2nd daughter committed a suicide in 1999 -Hospitalization recently for attempted self-harm in Nov 2022 in [facility] psych unit -[facility] providers: [facility] at [address] [place] [address] -Seeing counselor monthly and psych prescriber every 2-3 mo -Current medication: Risperidone 1 mg in the morning, 2 mg in the evening; benztropine 0.5 mg twice daily; quetiapine 50 mg at bedtime; -Previous medications: Perphenazine 8 mg daily; Benztropine, Quetiapine -Continue current medication and recommendations by S providers. Assessment & Plan (11/01/2022 3:45 PM EDT): -Hx 2nd daughter committed a suicide in 1999 -[facility] providers: [facility] at [address] [place] [address] -Seeing counselor monthly and psych prescriber every 2-3 mo -Current medication: Quetiapine; benztropine for EPS -Previous medication: Perphenazine 8 mg daily for many years, changed in 2022 -Continue current medication and recommendations by [facility] providers. Assessment & Plan (09/22/2022 6:35 AM EDT): -Hx 2nd daughter committed a suicide in 1999 -[facility] providers: [facility] at [address] [place] [address] -Seeing counselor monthly and psych prescriber every 2-3 mo -Current medication: Perphenazine 8 mg daily; Benztropine, Quetiapine -Continue current medication and recommendations by [facility] providers. Vitamin D deficiency 12/03/2011 Assessment & Plan (12/20/2023 2:27 PM EDT): - continue vitamin D Assessment & Plan (07/25/2023 11:04 AM EDT): - continue vitamin D Assessment & Plan (03/12/2023 5:52 PM EST): - continue vitamin D Assessment & Plan (11/01/2022 3:43 PM EDT): - continue vitamin D Stage 3a chronic kidney disease 10/13/2011 Assessment & Plan (12/20/2023 2:27 PM EDT): - usually CKD II- IIIa - previously followed by railway yard assistant annually - no longer seeing railway yard assistant - 08/18/22 BUN 20, Scr 1.08, eGFR 57, K 3.9, Bicarb 26 -12/31/22 eGFR > 60 - continue periodic lab - avoid nephrotoxins Assessment & Plan (09/13/2023 8:46 AM EDT): - usually CKD II- IIIa - previously followed by railway yard assistant annually - no longer seeing railway yard assistant - 08/18/22 BUN 20, Scr 1.08, eGFR 57, K 3.9, Bicarb 26 -12/31/22 eGFR > 60 - continue periodic lab - avoid nephrotoxins Assessment & Plan (07/25/2023 9:14 PM EDT): - usually CKD II- IIIa - previously followed by railway yard assistant annually - no longer seeing railway yard assistant - 08/18/22 BUN 20, Scr 1.08, eGFR 57, K 3.9, Bicarb 26 -12/31/22 eGFR > 60 - continue periodic lab - avoid nephrotoxins Assessment & Plan (03/12/2023 6:13 PM EST): - usually CKD II- IIIa - previously followed by railway yard assistant annually - no longer seeing railway yard assistant - 08/18/22 BUN 20, Scr 1.08, eGFR 57, K 3.9, Bicarb 26 -12/31/22 eGFR > 60 - continue periodic lab - avoid nephrotoxins Assessment & Plan (11/01/2022 3:42 PM EDT): - usually CKD II- IIIa - previously followed by railway yard assistant annually - no longer seeing railway yard assistant - 08/18/22 BUN 20, Scr 1.08, eGFR 57, K 3.9, Bicarb 26 - continue periodic lab - avoid nephrotoxins Assessment & Plan (09/22/2022 6:14 AM EDT): - usually CKD II- IIIa - previously followed by railway yard assistant annually - no longer seeing railway yard assistant - check lab today Polyp of colon 02/24/2007 Resolved Problems Problem Noted Date Diagnosed Date Resolved Date Transaminitis 11/05/2014 11/01/2022 Encounters Date Type Department Care Team Description 04/12/[address] [facility] MEDICINE [address] [place] [address] Luciana Winters MD Urine culture 04/10/2024 Telephone [facility] [address] [place], [place] [phone] Dominique Fry MA febuary recall 04/06/2024 Telephone [facility] [address] [place] [address] Luciana Winters MD Medication Question 04/04/2024 Telephone [facility] [address] [place], [place] [phone] Luciana Winters MD call back needed 04/03/2024 9:30 AM EST Office Visit [address] [phone] Luciana Winters MD Undifferentiated schizophrenia ([facility]/HCC) (Primary Dx); Tremor; Age-related osteoporosis without current pathological fracture; Essential hypertension; Dyslipidemia; Basal cell carcinoma (BCC) of skin of other part of face; Hypertriglyceridemia; Encounter for immunization; Porcelain gallbladder; Weight loss; Moderate protein-calorie malnutrition ([facility]); Lung nodules 04/03/2024 Travel 04/03/[address] [phone] Luciana Winters MD Verbal order 03/30/[address] [address] Luciana Winters MD chart prep 03/22/2024 Orders Only [address] [address] Luciana Winters MD 03/20/[address] [address] Luciana Winters MD Medication Question 03/19/[address] [address] Luciana Winters MD verbal orders needed 03/14/[address] [address] Luciana Winters MD from Last 3 Months Immunizations Name Administration Dates Next Due Hep B, adult 11/29/2006,07/15/2006,06/10/2006 Influenza High-dose Quadriva lent Preservative Free 02/28/2023 Influenza injectable quadriv alent IIV4 with preservative 12/26/2017,04/27/2017,01/30/2015 Influenza injectable quadriv alent preservative free 03/30/2022,03/31/2021,12/07/2019,2018 Influenza, High Dose Seasona l, Preservative Free 04/03/2024 Influenza, IIV3, injectable 01/29/2014,0 12/25/2010,12/17/2009,2008,01/05/2007,02/04/2006 Influenza, Split (incl. cecilia fied surface antigen) 02/07/2013,12/03/2011 Pneumococcal Conjugate PCV 20 02/28/2023 TD (adult), 2 Lf tetanus tox oid, preservative free, adsorbed 04/01/2006 Tdap 02/28/2023,03/24/2011 Zoster, Recombinant 03/09/2019,01/08/2019 Zoster, live 11/19/2015 Social History Tobacco Use Types Packs/Day Years Used Date Smoking Tobacco: Former Cigarettes Passive Smoke Exposure: Past Smokeless Tobacco: Never Tobacco Cessation:Counseling Given: Not Answered Alcohol Use Standard Drinks/Week Comments Never 0 (1 standard drink = 0.6 oz pur e alcohol) Depression Answer Date Recorded Patient Health Questionnaire-9 Score 3 12/20/2023 Patient Health Questionnaire-9 Score 3 12/20/2023 Last PHQ-9: Questionnaire Data Not on file 0 12/20/2023 Housing Stability Answer Date Recorded What is your housing situation today? I have viet ramos 12/20/[address] you li ve. Do you have problems with any of the following? None of the above 12/20/2023 Food Insecurity Answer Date Recorded Within the past 12 months, y ou worried that your food would run out before you got money to buy more: Never True 12/20/2023 Within the past 12 months,th e food you bought just didn't last and you didn't have enough money to get more: Never True Transportation Answer Date Recorded In the past 12 months, has l ack of transportation kept you from medical appts, meetings, work or from getting things needed for daily living? No 12/20/2023 Utilities Answer Date Recorded In the past 12 months, has t he electric, gas, oil or water company threatened to shut off services in your home? No 12/20/2023 Depression Answer Date Recorded Patient Health Questionnaire-2 Score 1 12/20/2023 Internet Access Answer Date Recorded Internet Access Q1 Yes 12/20/2023 Internet Access Q2 Not on file 12/20/2023 Comments Unknown Sex and Gender Information Value Date Recorded Sex Assigned at Female 01/25/2022 10:19 AM EDT Legal Sex Female 10:19 AM EDT Gender Identity Female 01/25/2022 10:19 AM EDT Sexual Orientation Straight 01/25/2022 10 :19 AM EDT Last Filed Vital Signs Vital Sign Reading Time Taken Comments Blood Pressure 139/80 04/03/2024 9:39 AM EST Pulse 104 04/03/2024 9:39 AM EST Temperature 36.2 ??C (97.1 ??F) 04/03/2024 9:39 AM ES T Respiratory Rate 20 04/03/2024 9:39 AM EST Oxygen Saturation 99% 04/03/2024 9:39 AM EST Inhaled Oxygen Concentration - - Weight 51.3 kg (113 lb 3.2 oz) 04/03/2024 9:39 A M EST Height 165.4 cm (5' 5.11 ) 04/03/2024 9:39 AM ES T Body Mass Index 18.77 04/03/2024 9:39 AM EST Plan of Treatment Upcoming Encounters Date Type Department Care Team (Late st Contact Info) Description 05/21/2024 1:00 PM EST Office Visit [facility] MEDICINE [address] [place] [address] Luciana Winters MD [address] [place] [address] Health Maintenance Due Date Last Done Comments CT Colonography 1955 Dental Oral Exam 1955 Dental Prophylaxis 1955 Dental X-Ray: Bitewings 1955 Dental X-Ray: Full Mouth 1955 FIT DNA/Cologuard 1955 FIT 1955 FOBT 1955 Sigmoidoscopy 1955 Derm Melanoma Skin Check 05/12/1956 Colonoscopy 10/21/2022 10/21/2017 Colorectal Cancer Screening 10/21/2022 COVID-19 Vaccine ( season) 2023 08/13/2021, 03/31/2021, 06/24/2020, Additional history exists Depression Screening 12/19/2024 12/20/2023, 12/20/19 SDOH Screening 12/19/2024 12/20/2023 Mammogram 02/21/2025 02/21/2023, 01/27, 03/31/2021, Additional history exists Alcohol/Substance Use Screening 04/03/2025 04/03/2024 Tobacco Screening 04/03/2025 04/03/2024 Lipid Panel 09/05/2028 09/06/2023, 08/0 03/2022, 10/21/2020 RSV Patients and Patients Aged 60 years or older (1 - 1-dose 75+ series) 11/09/2030 DTaP/Tdap/Td Vaccines (3 - Td or Tdap) 02/28/2033 02/28/2023, 03/24/2011, 04/01/2006 Hepatitis B Vaccines Completed 11/29/2006, 07/15/2006, 06/10/2006 Zoster Vaccines Completed 03/09/2019, 12/26, 11/19/2015 Hepatitis C Screening Completed 08/18/2022 Pneumococcal Vaccine: 50+ Years Completed 02/28/2023 Influenza Vaccine Completed 04/03/2024, , 03/30/2022, Additional history exists HIB Vaccines Aged Out No longer eligi ble based on patient's age to complete this topic HPV Vaccines Aged Out No longer eligi ble based on patient's age to complete this topic Hepatitis A Vaccines Aged Out No long er eligible based on patient's age to complete this topic IPV Vaccines Aged Out No longer eligi ble based on patient's age to complete this topic Meningococcal Vaccine Aged Out No denys marlene eligible based on patient's age to complete this topic RSV under 20 months Aged Out No longe r eligible based on patient's age to complete this topic Rotavirus Vaccines Aged Out No longer eligible based on patient's age to complete this topic Procedures Procedure Name Priority Date/Time Associated Diagnosis Comments LIPID PANEL WITH REFLEX TO DIRECT LDL Routine 09/06/2023 11:39 AM EDT Dyslipidemia BI MAMMOGRAM SCREENING TOMOSYNTHESIS BILATERAL Routine 02/21/2023 12:51 PM EST HEPATITIS C AB W/REFL TO HCV RNA, QN, PCR Routine 08/18/2022 8:36 AM EDT Unintentional weight loss HM COLONOSCOPY Routine 10/21/2017 from Last 3 Months or Most Recently Relevant to Health Maintenance Results * Lipid Panel with Reflex to Direct LDL (09/06/2023 11:39 AM EDT) Triglycerides 50 <150 mg/dL [facility] Comment:Desirable Triglyceri de: less than 150 mg/dLBorderline High Triglyceride 150-199 mg/dLHigh Triglyceride: 200-499 mg/dLVery High Triglyceride: greater than or equal to 5OO mg/dL Cholesterol 135 <200 mg/dL [facility] Comment:Desirable Cholestero l: less than 200 mg/dLBorderline High Cholesterol: 200-239 mg/dLHigh Cholesterol: greater than 239 mg/dL LDL Cholesterol Calculated 78 <100 mg/dL [facility] Comment:Desirable LDL: less than 100 mg/dLNear Optimal/Above Optimal LDL: 110- 129 mg/dLBorderline High LDL: 130-159 mg/dLHigh LDL: 160-189 mg/dLVery High LDL: greater than or equal to 190 mg/dL HDL Cholesterol 47 >40 mg/dL [facility] Comment:Desirable HDL: great er than 40 mg/dL Note: This HDL assay may give artificially low results in patients with liver disease. Blood 09/06/2023 11:3 9 AM EDT 09/06/2023 1:30 PM EDT us Luciana Winters MD LAB BLOOD ORDERABLES Final Resul t [facility] [address] [place], [place] [phone] * BI Mammogram Screening Tomosynthesis Bilateral (02/21/2023 12:51 PM EST) Anatomical Region Laterality Modality Breast Bilateral Mammography 02/21/2023 12:5 1 PM EST Narrative 03/04/2023 2:27 PM EST ? [facility] ? [address] ?[place] [address] ? Mammography Report ? Signed ? Patient: Loyd,Melia M ?MR#: [id number] ?? [id number] ? : 1955 ?Acct:[id number] ? Age/Sex: 67 / F ?ADM Date: 02/21/23 ? Loc: HO.MAMMO ? Attending Dr: Luciana Winters MD ? Ordering Physician: Luciana Winters MD ?Results: 1Negative ? Date of Service: 02/21/23 ?Follow Up: 1 Year From Orig ?? inal Mammogram ? Procedure(s): MM tomosynthesis screening BI ?? Accession Number(s): [id number] ? cc: Luciana Winters MD ? EXAMINATION: ?? MM SCREENING DIGITAL BREAST TOMOSYNTHESIS, BILATERAL ? CLINICAL INFORMATION: ? Screening. Asymptomatic. ? COMPARISON: ?? Mammography: This study is compared with prior exams dating back to ?? 2017. ? TECHNIQUE: ?? Digital breast tomosynthesis is performed in both the craniocaudal and ?? mediolateral oblique views along with computer-aided detection (CAD). ?? Synthesized 2D images are generated from the tomosynthesis. ? FINDINGS: ?? There are scattered areas of fibroglandular density (ACR BI-RADS breast ?? composition Category b). ? There are no significant masses, abnormal calcifications, or other ?? abnormalities. ? MM/MM tomosynthesis screening BI ?? IMPRESSION: ?? No mammographic evidence of malignancy. ? ASSESSMENT: ? BI-RADS BI-RADS 1 - Negative ? RECOMMENDATION: ?? Routine annual mammography screening. ? 1 year F/U ? This examination should not preclude the clinical evaluation of a ?? suspicious palpable abnormality. ? This patient's information was entered into a reminder system with a ?? target due date for their next mammogram. ? Dictated By: ?Gretchen Jenkins MD ? Signed By: ?<Electronically signed by Gretchen Jenkins MD in OV> ? 03/04/23 1423 ? DD/ 1251 ? TD/TT: ? Enrichment Teacher: ? Procedure Note Donotuseinterpreter, Image - 03/04/2023 [facility] [address] [place], [place] [address] Mammography Report Signed Patient: Melia Harp MMR#: [id number] 226 : 6Acct:[id number] Age/Sex: 67 / FADM Date: 02/21/23 Loc: HO.MAMMO Attending Dr: Luciana Winters MD Ordering Physician: Luciana Winters MDResults: 1Negative Date of Service: 02/21/23Follow Up: 1 Year From Orig inal Mammogram Procedure(s): MM tomosynthesis screening BI Accession Number(s): [id number] cc: Luciana Winters MD EXAMINATION: MM SCREENING DIGITAL BREAST TOMOSYNTHESIS, BILATERAL CLINICAL INFORMATION: Screening. Asymptomatic. COMPARISON: Mammography: This study is compared with prior exams dating back to 2017. TECHNIQUE: Digital breast tomosynthesis is performed in both the craniocaudal and mediolateral oblique views along with computer-aided detection (CAD). Synthesized 2D images are generated from the tomosynthesis. FINDINGS: There are scattered areas of fibroglandular density (ACR BI-RADS breast composition Category b). There are no significant masses, abnormal calcifications, or other abnormalities. MM/MM tomosynthesis screening BI IMPRESSION: No mammographic evidence of malignancy. ASSESSMENT: BI-RADS BI-RADS 1 - Negative RECOMMENDATION: Routine annual mammography screening. 1 year F/U This examination should not preclude the clinical evaluation of a suspicious palpable abnormality. This patient's information was entered into a reminder system with a target due date for their next mammogram. Dictated By: Gretchen Jenkins MD Signed By: <Electronically signed by Gretchen Jenkins MD in OV> 03/04/23 1423 DD/ 1251 TD/TT: Enrichment Teacher: Luciana Winters MD IMG BI PROCEDURES Final Result * Hepatitis C Antibody with Reflex to HCV, RNA, Quantitative, Real-Time PCR (08/18/2022 8:36 AM EDT) Hepatitis C Antibody NON-REACT CEASAR NON-REACT CEASAR Splice Index 0.02 <1.00 Splice Comment: HCV antibody was non-reactive. There is no laboratory evidence of HCV infection. In most cases, no further action is required. However, if recent HCV exposure is suspected, a test for HCV RNA (test code 29224) is suggested. For additional information please refer to http://education.Snaptalent/faq/OPK97a2 (This link is being provided for informational/ educational purposes only.) Blood Venous blood specimen / Unknown 08/18/2022 8:36 AM EDT 08/18/2022 8:38 AM EDT Narrative [facility] - 08/19/2022 4:44 PM EDT FASTING:YES FASTING: YES [facility] LAB BLOOD ORDERABLES Final Re sult [facility] [address], [place] [address] [employer] [facility] [address] [place] [address] * Hm Colonoscopy (10/21/2017) Colonoscopy Normal Normal Historical Provider HEALTH MAINTENANCE Final Result from Last 3 Months or Most Recently Relevant to Health Maintenance Insurance MEDICARE * Guarantor: Melia Harp Account Type Relation to Patient Date of Phone Billing Address Personal/Family Self [address] Care Teams Stop Attacher Relationship Specialty Start Date End Date Luciana Winters MD [address] [place] [address] PCP - General Family Medicine 03/28/18 Jannette 03/20/24
--- OUTSIDE RECORDS SUMMARY | 2024-05-11 14:13 | XMS_ITS ---
Author Organization [facility] Address [address] [place] [address] Care Team Providers Care Riffler Tender Name Role Phone Vianey GONZALEZ, Luciana Primary Care Provider Jani Ramírez Jr [phone] REASON FOR VISIT cancelled appt Encounters Encounter Location Date Provider Diagnosis [facility] [address] [place] [phone] 11/23/2023 Jani Orosco Jr PLAN OF TREATMENT No Information
--- OUTSIDE RECORDS SUMMARY | 2024-05-11 14:13 | XMS_ITS | Patient Health Record ---
Author Organization [facility] Address [address] [place] [phone] Care Team Providers Care Concrete Batcher Name Role Phone Vianey GONZALEZ, Luciana Primary Care Provider Jani Ramírez Jr Unavailable REASON FOR REFERRAL No Information MEDICATIONS Medication SIG (Take, Route, Fr equency, Duration) Notes Start Date End Date Status Vitamin D3 1000 UNIT 1 capsule Orally Once a day Active Fenofibrate 160 MG 1 tablet Orally Once a day Active Golytely 236 GM as directed before c olonoscopy Orally every 15 minutes for 1 day(s) Active Allergy 24-HR 180 MG 1 tablet as needed Orally Once a day Active Simvastatin 20 MG 1 tablet in the even ing Orally Once a day Active Perphenazine 8 MG 1 tablet Orally Once a day Active Aspir-81 81 MG 1 tablet Orally Once a day Active IMMUNIZATIONS Vaccine Route Administration Date Status Comme nts Flu vaccine no Preserv 3 and > Unknown 04/06/2017 Admin istered SOCIAL HISTORY Tobacco Use: Social History Observation Description Date Details (start date - stop date) Former Smoker NA - NA Sex Assigned At : Social History Observation Description Sex Assigned At Unknown Tobacco Use/Smoking Question Answer Notes Patient is a former smoker How long has it been since you last smoked? 1-5 years PROBLEMS Problem Type ICD Code Onset Dates Problem Status W/U Status Risk SNOMED Code Notes Problem Colon cancer screening (Z12.11) Active confirmed 958806631 Problem Personal history of colonic polyps (Z86.010) Active confirmed 128873079 Problem correction (current) use of aspirin (Z79.82) Active confirmed 963137525 Encounters Encounter Location Date Provider Diagnosis [facility] [address] [place] [phone] 2023 Jani Orosco Jr [facility] [address] [place] [address] 11/24/2023 Jani Orosco Jr [facility] [address] [place] [address] 11/23/2023 Jani Orosco Jr PLAN OF TREATMENT Future Test Test Name Order Date COLONOSCOPY 02/23/2012 COLONOSCOPY 08/24/2017 Insurance Providers Payer Name Payer Address Payer Phone Subscriber Number Group Number Insured Name Patient Relationship to Insured Coverage Start Date Coverage End Date MEDICARE OF [place] [address] [place] [address] [id number] VALERIO BHAKTA Self - patient is the insured MEDICAID OF [facility] [address] [place] [address] [id number] VALERIO BHAKTA Self - patient is the insured MEDICAL (GENERAL) HISTORY Medical History History ICD Code colonoscopy 04/26/12 rectal polyps schizophrenia elevated cholesterol Allergies Surgical History Surgery Date(Month/Year) left foot surgery tubal ligation cyst removal lumpectomy, left breast-benign
--- OUTSIDE RECORDS SUMMARY | 2024-05-11 14:13 | XMS_ITS ---
Author Organization [facility] Address [address] [place] [phone] Care Team Providers Care Jig And Fixture Repairer Name Role Phone Vianey GONZALEZ, Luciana Primary Care Provider Jani Ramírez Jr [phone] REASON FOR VISIT Patient presents today for a recall colonoscopy Encounters Encounter Location Date Provider Diagnosis [facility] [address] [place] [phone] 11/24/2023 Jani Orosco Jr PLAN OF TREATMENT No Information
--- OUTSIDE RECORDS SUMMARY | 2024-05-11 14:13 | XMS_ITS | Encounter Summary ---
Author Organization [facility] Address [address] [place] [address] [address]t [place] [address] Care Team Providers Care Chemistry Specialist Name Role Phone Luciana Winters MD Primary Care Provider [phone] Reason for Visit * Reason Onset Date Comments Medication Question 03/20/2024 Encounter Details Date Type Department Care Team ([facility] Contact Info) Description 03/20/2024 Telephone [facility] MEDICINE [address] [place] [address] Luciana Winters MD [address] [place], [place] [phone] Medication Question Social History Tobacco Use Types Packs/Day Years [...] encounter Miscellaneous Notes * Telephone Encounter - Maribeth Marte RN - 03/22/2024 3:03 PM EST TC placed to Nora (physical therapist) who [facility] Mirtazapine 7.5 mg as an appetite stimulant. The pt has been progressively losing weight. Pt has an HDF appt scheduled with PCP on 04/03/2024. Nora is inquiring if the PCP can prescribe the Mirtazapine to hold the pt over until 04/03/24 appt. * Telephone Encounter - Bernadine Alford - 03/20/2024 10:39 AM EST Tc from Nora requesting prescription med (Mirtazapine 7.5 mg.) If any questions contact Nora: [phone] documented in this encounter Plan of Treatment Upcoming Encounters Date Type Department Care Team ([facility] st Contact Info) Description 05/21/2024 1:00 PM EST Office Visit [facility] MEDICINE [address] [place] [address] Luciana Winters MD [address] [place] [address] documented as of this encounter Visit Diagnoses Not on filedocumented in this encounter Additional Health Concerns Assessment Noted Time PHQ-9 Depression Total Score: 3 12/20/19 24 1:29 PM EDT documented as of this encounter Care Teams Chemistry Specialist Relationship Specialty Start Date End Date Luciana Winters MD [address] [place] [address] PCP - General Family Medicine 03/28/18 [facility] 03/20/24 documented as of this encounter
--- OUTSIDE RECORDS SUMMARY | 2024-05-11 14:13 | XMS_ITS | Encounter Summary ---
Author Organization [facility] Address [address] [place] [address] 7 [place] [address] Care Team Providers Care Wood Web Weaving Machine Operator Name Role Phone Luciana Winters MD Primary Care Provider [phone] Encounter Details Date Type Department Care Team (Latest Contact Info) Description 05/04/2021 Abstract [facility] Dental, Provider, DDS Social History Tobacco Use Types Packs/Day Years Used Date Smoking Tobacco: Never Assessed Comments Unknown Sex and Gender Information Value Date Recorded Sex Assigned at Female 01/25/2022 10:19 AM EDT Legal Sex Female 10:19 AM EDT Gender Identity Female 01/25/2022 10:19 AM EDT Sexual Orientation Straight 01/25/2022 10 :19 AM EDT documented as of this encounter Plan of Treatment Upcoming Encounters Date Type Department Care Team (Late st Contact Info) Description 05/21/2024 1:00 PM EST Office Visit [facility] MEDICINE [address] [place] [address] Luciana Winters MD [address] [place] [address] documented as of this encounter Visit Diagnoses Not on filedocumented in this encounter Care Teams Wood Web Weaving Machine Operator Relationship Specialty Start Date End Date Luciana Winters MD [address] [place] [address] PCP - General Family Medicine 03/28/18 [facility] 03/20/24 documented as of this encounter
--- OUTSIDE RECORDS SUMMARY | 2024-05-11 14:13 | XMS_ITS | Encounter Summary ---
Author Organization [employer] [facility] Address [address] [place] [address] 7t [place] [address] Care Team Providers Care Site Coordinator Name Role Phone Luciana Winters MD Primary Care Provider [phone] Encounter Details Date Type Department Care Team ([facility] st Contact Info) Description 03/22/2024 Orders Only [facility] MED[facility]INE [address] [place] [address] Luciana Winters MD [address] [place] [address] Social History Tobacco Use Types Packs/Day Years [...] Description 05/21/2024 1:00 PM EST Office Visit [facility] [address] [place] [address] Luciana Winters MD [address] [place] [address] documented as of this encounter Visit Diagnoses Not on filedocumented in this encounter Additional Health Concerns Assessment Noted Time PHQ-9 Depression Total Score: 3 12/20/19 24 1:29 PM EDT documented as of this encounter Care Teams Site Coordinator Relationship Specialty Start Date End Date Luciana Winters MD [address] [place] [address] PCP - General Family Medicine 03/28/18 [facility] 03/20/24 documented as of this encounter
--- OUTSIDE RECORDS SUMMARY | 2024-05-11 14:13 | XMS_ITS | Encounter Summary ---
Author Organization [facility] Address [address] [place] [address] [address]t [place] [address] Care Team Providers Care Mannequin Sander And Finisher Name Role Phone Luciana Winters MD Primary Care Provider Reason for Visit * Reason Onset Date Comments Urine culture 04/12/2024 Encounter Details Date Type Department Care Team ([facility] st Contact Info) Description 04/12/2024 Telephone [facility] MED[facility] [address] [place], [place] [phone] Luciana Winters MD [address] [place], [place] [phone] Urine culture Social History Tobacco Use Types Packs/Day Years [...] Telephone Encounter - Maribeth Marte RN - 04/12/2024 12:03 PM EST TC placed to Loree RODRIGUEZ and left a detailed VM to call back the office regarding pt urine culture ordered * Telephone Encounter - Merced Wang - 04/12/2024 11:18 AM EST Tc from Loree nurse practitioner with [facility] calling to inform provider pt was given a order urine culture to rule out UTI due to behavior (increased anxiety). If any questions or concerns contact Loree at [phone] documented in this encounter Plan of Treatment Upcoming Encounters Date Type Department Care Team (Late st Contact Info) Description 05/21/2024 1:00 PM EST Office Visit [facility] MED[facility]INE [address] [place] [address] Luciana Winters MD [address] [place] [address] documented as of this encounter Visit Diagnoses Not on filedocumented in this encounter Additional Health Concerns Assessment Noted Time PHQ-9 Depression Total Score: 3 12/20/19 1:29 PM EDT documented as of this encounter Care Teams Mannequin Sander And Finisher Relationship Specialty Start Date End Date Luciana Winters MD [address] [place] [address] [place] [address] PCP - General Family Medicine 03/28/18 [facility] 03/20/24 documented as of this encounter
--- OUTSIDE RECORDS SUMMARY | 2024-05-11 14:13 | XMS_ITS | Encounter Summary ---
Author Organization [employer] [facility] Address [address] [place] [address] 7 [place] [address] Care Team Providers Care Ladle Car Operator Name Role Phone Luciana Winters MD Primary Care Provider [phone] Reason for Visit * Reason Comments Med Refill Encounter Details Date Type Department Care Team (Late st Contact Info) Description 06/03/2022 Refill [facility] [address] [place] [address] [phone] Randee Sweeney MD [address] [place] [address] [phone] Hypertension, unspecified type; Hypertriglyceridemia Social History Tobacco Use Types Packs/Day Years [...] Description 05/21/2024 1:00 PM EST Office Visit [facility] [address] [place], [place] [phone] Luciana Winters MD [address] [place] [phone] documented as of this encounter Visit Diagnoses Diagnosis Hypertension, unspecified type Hypertriglyceridemia Pure hyperglyceridemia documented in this encounter Care Teams Ladle Car Operator Relationship Specialty Start Date End Date Luciana Winters MD [address] [place] [address] PCP - General Family Medicine 03/28/18 [facility] 03/20/24 documented as of this encounter
--- OUTSIDE RECORDS SUMMARY | 2024-05-11 14:13 | XMS_ITS | Encounter Summary ---
Author Organization [facility] Address [address] [place] [address] Care Team Providers Care Fire Alarm Inspector Name Role Phone Simon Katz MD Primary Care Provider [phone] Encounter Details Date Type Department Care Team (Late st Contact Info) Description 03/13/2024 Lab Requisition [facility] - Main Lab [address] [place] [address] Simon Katz MD [facility] [address], [phone] Essential (primary) hypertension Social History Tobacco [...] Associated Diagnosis Comments COMPLETE BLOOD COUNT Routine 03/14/2024 6:22 AM EST Essential (primary) hypertension BASIC METABOLIC PANEL Routine 03/14/2024 6:22 AM EST Essential (primary) hypertension documented in this encounter Results * Basic metabolic panel (03/14/2024 6:22 AM EST) Sodium 142 133 - 145 mmol/L LAB CHEMISTRY METHOD 03/14/2024 11:31 AM EST [facility] Potassium 3.7 3.5 - 5.5 mmol/L LAB CHEMISTRY METHOD 03/14/2024 11:31 AM EST [facility] Chloride 110 96 - 110 mmol/L LAB CHEMISTRY METHOD 03/14/2024 11:31 AM [facility] CO2 25 21 - 32 mmol/L LAB CHEMISTRY METHOD 03/14/2024 11:31 AM [facility] Anion Gap 7 3 - 11 LAB CHEMISTRY METHOD 03/14/2024 11:31 AM [facility] Glucose 92 70 - 100 mg/dL LAB CHEMISTRY METHOD 03/14/2024 11:31 AM [facility] BUN 18 5 - 25 mg/dL LAB CHEMISTRY METHOD 03/14/2024 11:31 AM [facility] Creatinine 0.76 0.50 - 1.10 mg/dL LAB CHEMISTRY METHOD 03/14/2024 11:31 AM [facility] eGFR 85 >=60 mL/min/1. 73m2 LAB CHEMISTRY METHOD 03/14/2024 11:31 AM [facility] Comment:Calculation based on the??Chronic Kidney Disease Epidemiology Collaboration (CKD-EPI) equation refit??without adjustment for race. BUN/Creatinine Ratio 23.7 LAB CHEMISTRY METHOD 03/14/2024 11:31 AM [facility] Calcium 9.1 8.5 - 10.5 mg/dL LAB CHEMISTRY METHOD 03/14/2024 11:31 AM [facility] Blood Venous blood specimen / Unknown Venipuncture / Unknown 03/14/2024 6:22 AM EST 03/14/2024 10:16 AM EST us Simon Katz MD LAB BLOOD ORDERABLES Final Resul t [facility] [address] [place] [address], * (ABNORMAL) Complete blood count (03/14/2024 6:22 AM EST) WBC 6.3 4.8 - 10.8 K/mcL LAB HEMETOLOGY METHOD 03/14/2024 11:04 AM [facility] RBC 3.80 3.80 - 4.80 M/mcL LAB HEMETOLOGY METHOD 03/14/2024 11:04 AM [facility] Hemoglobin 11.1(L) 11.5 - 16.0 g/dL LAB HEMETOLOGY METHOD 03/14/2024 11:04 AM [facility] Hematocrit 35.5 35.0 - 47.0 % LAB HEMETOLOGY METHOD 03/14/2024 11:04 AM [facility] MCV 93.2 79.0 - 98.0 FL LAB HEMETOLOGY METHOD 03/14/2024 11:04 AM [facility] MCH 29.1 27.0 - 32.0 pcg LAB HEMETOLOGY METHOD 03/14/2024 11:04 AM [facility] MCHC 31.3(L) 32.0 - 37.0 g/dL LAB HEMETOLOGY METHOD 03/14/2024 11:04 AM [facility] RDW 13.3 11.0 - 15.0 % LAB HEMETOLOGY METHOD 03/14/2024 11:04 AM [facility] Platelets 249 130 - 400 K/mcL LAB HEMETOLOGY METHOD 03/14/2024 11:04 AM [facility] MPV 12.7(H) 7.0 - 11.0 FL LAB HEMETOLOGY METHOD 03/14/2024 11:04 AM [facility] NRBC 0.0 <1.0 % LAB HEMETOLOGY METHOD 03/14/2024 11:04 AM [facility] NRBC Absolute 0.00 <0.10 K/mcL LAB HEMETOLOGY METHOD 03/14/2024 11:04 AM [facility] Blood Venous blood specimen / Unknown Venipuncture / Unknown 03/14/2024 6:22 AM EST 03/14/2024 10:14 AM EST us Simon Katz MD LAB BLOOD ORDERABLES Final Resul t [facility] ([facility]) [facility] [address] [place] [address], documented in this encounter Visit Diagnoses Diagnosis Essential (primary) hypertension Unspecified essential hypertension documented in this encounter Care Teams Fire Alarm Inspector Relationship Specialty Start Date End Date Simon Katz MD [address] [place] [address], [phone] PCP - General Family Medicine 02/03/24 documented as of this encounter
--- OUTSIDE RECORDS SUMMARY | 2024-05-11 14:13 | XMS_ITS | Encounter Summary ---
Author Organization [employer] Address [address] [place] [address] 7 [place] [address] Care Team Providers Care Tail Sawyer Name Role Phone Luciana Winters MD Primary Care Provider [phone] Encounter Details Date Type Department Care Team (Late st Contact Info) Description 06/17/2022 Orders Only [facility] [address] [place] [address] [phone] Luciana Winters MD [address] [place] [address] [phone] Essential hypertension (Primary Dx); Stage 2 chronic kidney disease; Dyslipidemia; Undifferentiated schizophrenia (CMS/HCC) Social History Tobacco Use Types Packs/Day [...] Description 05/21/2024 1:00 PM EST Office Visit [facility] [address] [place] [address] [phone] Luciana Winters MD [address] [place] [address] [phone] Scheduled Orders Name Type Priority Associated Diagnoses Orde r Schedule Comprehensive Metabolic Panel Lab Routine Essential hypertension Expected: 06/17/2022 (Approximate), Expires: 06/18/2023 Lipid Panel with Reflex to Direct LDL Lab Routine Dyslipidemia Expected: 06/17/2022 (Approximate), Expires: 06/18/2023 Vitamin B12/Folate, Serum Panel Lab Routine Undifferentiated schizophrenia (CMS/HCC) Expected: 06/17/2022 (Approximate), Expires: 06/18/2023 Vitamin D, 25-Hydroxy, Total, Immunoassay Lab Routine Stage 2 chronic kidney disease Expected: 06/17/2022 (Approximate), Expires: 06/18/2023 TSH W/Reflex to FT4 Lab Routine Essential hypertension Expected: 06/17/2022 (Approximate), Expires: 06/18/2023 documented as of this encounter Visit Diagnoses Diagnosis Essential hypertension- Primary Unspecified essential hypertension Stage 2 chronic kidney disease Dyslipidemia Other and unspecified hyperlipidemia Undifferentiated schizophrenia (CMS/HCC) documented in this encounter Care Teams Tail Sawyer Relationship Specialty Start Date End Date Luciana Winters MD [address] [place] [phone] PCP - General Family Medicine 03/28/18 Jannette 03/20/24 documented as of this encounter
--- OUTSIDE RECORDS SUMMARY | 2024-05-11 14:13 | XMS_ITS | Clinical Summary ---
Author Organization [address] [facility] Address [address] [place] [address] Phone Care Team Providers Care Garage Attendant Name Role Phone Simon Katz MD Primary Care Provider [phone] Encounters Date Type Department Care Team Description 03/20/2024 Lab Requisition [facility] [address] [place] [phone] Simon Katz MD Essential (primary) hypertension 03/13/2024 Lab Requisition [facility] [address] [place] [phone] Simon Katz MD Essential (primary) hypertension 03/07/2024 Lab Requisition [facility] [address] [place] [phone] Simon Katz MD Essential (primary) hypertension; Poikiloderma vasculare atrophicans; Encounter for examination [facility] admission to [facility] 02/29/2024 Lab Requisition [facility] [address] [place] [phone] Simon Katz MD Parkinsonism, unspecified (CMS/HCC) from Last 3 Months Social History Tobacco Use Types Packs/Day Years Used Date Smoking Tobacco: Never Assessed Comments Unknown Sex and Gender Information Value Date Recorded Sex Assigned at Not on file Legal Sex Female 11:48 AM EST Gender Identity Not on file Sexual Orientation Not on file Plan of Treatment Health Maintenance Due Date Last Done Comments Breast Cancer Screening 1955 DTaP,Tdap,and Td Vaccines (1 - Tdap) 11/09/1974 Zoster Vaccines (1 of 2) 11/09/2005 Pneumococcal Vaccine: 50+ Years (1 of 1 - PCV) 11/09/2020 COVID-19 Vaccine ( season) 2023 Influenza Vaccine (#1) 2023 Cholesterol Screening (Lipid Panel) 02/03/2024 Colorectal Cancer Screening: Colonoscopy 02/03/2024 Depression Screening 02/03/2024 Falls Risk Assessment 02/03/2024 Hepatitis C Screening 02/03/2024 Medicare Annual Wellness Visit 02/03/2024 Osteoporosis Screening (Bone Density Screening) 02/03/2024 Social Influencers of Health Screening 02/03/2024 Hypertension/CHF/CAD Annual BMP Blood Test 03/14/2025 03/14/2024, 03/07/2024, 02/29/2024, Additional history exists RSV Immunization Patients 60+ Years Old (1 - 1-dose 75+ series) 11/09/2030 HIB Vaccines Aged Out No longer eligi ble based on patient's age to complete this topic HPV Vaccines Aged Out No longer eligi ble based on patient's age to complete this topic Hepatitis A Vaccines Aged Out No long er eligible based on patient's age to complete this topic Hepatitis B Vaccines Aged Out No long er eligible based on patient's age to complete this topic IPV Vaccines Aged Out No longer eligi ble based on patient's age to complete this topic MMR Vaccines Aged Out No longer eligi ble based on patient's age to complete this topic Meningococcal ACWY Vaccine Aged Out N o longer eligible based on patient's age to complete this topic RSV Immunization Patients Under 20 months Aged Out No longer eligible based on patient's age to complete this topic Varicella Vaccines Aged Out No longer eligible based on patient's age to complete this topic Procedures Procedure Name Priority Date/Time Associated Diagnosis Comments BASIC METABOLIC PANEL Routine 03/14/2024 6:22 AM EST Essential (primary) hypertension COMPLETE BLOOD COUNT Routine 03/14/2024 6:22 AM EST Essential (primary) hypertension BASIC METABOLIC PANEL Routine 03/07/2024 8:35 AM EST Essential (primary) hypertension Poikiloderma vasculare atrophicans Encounter for examination for admission to [facility] COMPLETE BLOOD COUNT Routine 03/07/2024 8:35 AM EST Essential (primary) hypertension Poikiloderma vasculare atrophicans Encounter for examination for admission to [facility] COMPREHENSIVE METABOLIC PANEL Routine 02/29/2024 6:57 AM EST Parkinsonism, unspecified (CMS/HCC) COMPLETE BLOOD COUNT Routine 02/29/2024 6:57 AM EST Parkinsonism, unspecified (CMS/HCC) from Last 3 Months Results * (ABNORMAL) Complete blood count (03/14/2024 6:22 AM EST) Only the most recent of3 resultswithin the time period is included. WBC 6.3 4.8 - 10.8 K/mcL LAB HEMETOLOGY METHOD 03/14/2024 11:04 AM [facility] RBC 3.80 3.80 - 4.80 M/mcL LAB HEMETOLOGY METHOD 03/14/2024 11:04 AM [facility] Hemoglobin 11.1(L) 11.5 - 16.0 g/dL LAB HEMETOLOGY METHOD 03/14/2024 11:04 AM [facility] Hematocrit 35.5 35.0 - 47.0 % LAB HEMETOLOGY METHOD 03/14/2024 11:04 AM [facility] MCV 93.2 79.0 - 98.0 FL LAB HEMETOLOGY METHOD 03/14/2024 11:04 AM [facility] MCH 29.1 27.0 - 32.0 pcg LAB HEMETOLOGY METHOD 03/14/2024 11:04 AM [facility] MCHC 31.3(L) 32.0 - 37.0 g/dL LAB HEMETOLOGY METHOD 03/14/2024 11:04 AM [facility] RDW 13.3 11.0 - 15.0 % LAB HEMETOLOGY METHOD 03/14/2024 11:04 AM [facility] Platelets 249 130 - 400 K/mcL LAB HEMETOLOGY METHOD 03/14/2024 11:04 AM [facility] MPV 12.7(H) 7.0 - 11.0 FL LAB HEMETOLOGY METHOD 03/14/2024 11:04 AM [facility] NRBC 0.0 <1.0 % LAB HEMETOLOGY METHOD 03/14/2024 11:04 AM [facility] NRBC Absolute 0.00 <0.10 K/mcL LAB HEMETOLOGY METHOD 03/14/2024 11:04 AM [facility] Blood Venous blood specimen / Unknown Venipuncture / Unknown 03/14/2024 6:22 AM EST 03/14/2024 10:14 AM EST us Simon Katz MD LAB BLOOD ORDERABLES Final Resul t [facility] [address] [place] [address], [place] [phone] * Basic metabolic panel (03/14/2024 6:22 AM EST) Only the most recent of2 resultswithin the time period is included. Sodium 142 133 - 145 mmol/L LAB CHEMISTRY METHOD 03/14/2024 11:31 AM [facility] Potassium 3.7 3.5 - 5.5 mmol/L LAB CHEMISTRY METHOD 03/14/2024 11:31 AM [facility] Chloride 110 96 - 110 mmol/L LAB CHEMISTRY METHOD 03/14/2024 11:31 AM [facility] CO2 25 21 - 32 mmol/L LAB CHEMISTRY METHOD 03/14/2024 11:31 AM [facility] Anion Gap 7 3 - 11 LAB CHEMISTRY METHOD 03/14/2024 11:31 AM [facility] Glucose 92 70 - 100 mg/dL LAB CHEMISTRY METHOD 03/14/2024 11:31 AM [facility] BUN 18 5 - 25 mg/dL LAB CHEMISTRY METHOD 03/14/2024 11:31 AM EST [facility] Creatinine 0.76 0.50 - 1.10 mg/dL LAB CHEMISTRY METHOD 03/14/2024 11:31 AM EST [facility] eGFR 85 >=60 mL/min/1. 73m2 LAB CHEMISTRY METHOD 03/14/2024 11:31 AM EST [facility] Comment:Calculation based on the??Chronic Kidney Disease Epidemiology Collaboration (CKD-EPI) equation refit??without adjustment for race. BUN/Creatinine Ratio 23.7 LAB CHEMISTRY METHOD 03/14/2024 11:31 AM [facility] Calcium 9.1 8.5 - 10.5 mg/dL LAB CHEMISTRY METHOD 03/14/2024 11:31 AM [facility] Blood Venous blood specimen / Unknown Venipuncture / Unknown 03/14/2024 6:22 AM EST 03/14/2024 10:16 AM EST us Simon Katz MD LAB BLOOD ORDERABLES Final Resul t [facility] [address] [place] [address], * (ABNORMAL) Comprehensive metabolic panel (02/29/2024 6:57 AM EST) Sodium 144 133 - 145 mmol/L LAB CHEMISTRY METHOD 02/29/2024 12:14 PM [facility] Potassium 4.3 3.5 - 5.5 mmol/L LAB CHEMISTRY METHOD 02/29/2024 12:14 PM [facility] Chloride 112(H) 96 - 110 mmol/L LAB CHEMISTRY METHOD 02/29/2024 12:14 PM [facility] CO2 25 21 - 32 mmol/L LAB CHEMISTRY METHOD 02/29/2024 12:14 PM [facility] Anion Gap 7 3 - 11 LAB CHEMISTRY METHOD 02/29/2024 12:14 PM [facility] Glucose 66(L) 70 - 100 mg/dL LAB CHEMISTRY METHOD 02/29/2024 12:14 PM [facility] BUN 23 5 - 25 mg/dL LAB CHEMISTRY METHOD 02/29/2024 12:14 PM [facility] Creatinine 0.74 0.50 - 1.10 mg/dL LAB CHEMISTRY METHOD 02/29/2024 12:14 PM [facility] eGFR 88 >=60 mL/min/1. 73m2 LAB CHEMISTRY METHOD 02/29/2024 12:14 PM [facility] Comment:Calculation based on the??Chronic Kidney Disease Epidemiology Collaboration (CKD-EPI) equation refit??without adjustment for race. BUN/Creatinine Ratio 31.1 LAB CHEMISTRY METHOD 02/29/2024 12:14 PM [facility] Calcium 8.9 8.5 - 10.5 mg/dL LAB CHEMISTRY METHOD 02/29/2024 12:14 PM [facility] AST (SGOT) 22 10 - 42 unit/L LAB CHEMISTRY METHOD 02/29/2024 12:14 PM [facility] ALT (SGPT) 24 10 - 60 unit/L LAB CHEMISTRY METHOD 02/29/2024 12:14 PM [facility] Alkaline Phosphatase 36(L) 42 - 121 unit/L LAB CHEMISTRY METHOD 02/29/2024 12:14 PM [facility] Total Protein 5.8(L) 6.0 - 8.0 g/dL LAB CHEMISTRY METHOD 02/29/2024 12:14 PM [facility] Albumin 3.2 3.2 - 5.0 g/dL LAB CHEMISTRY METHOD 02/29/2024 12:14 PM [facility] Total Bilirubin 0.4 0.0 - 1.4 mg/dL LAB CHEMISTRY METHOD 02/29/2024 12:14 PM EST [facility] Blood Venous blood specimen / Unknown Venipuncture / Unknown 02/29/2024 6:57 AM EST 02/29/2024 10:58 AM EST Simon Katz MD LAB BLOOD ORDERABLES Final Resul t [facility] ([facility]) [facility] [address] [place] [address], [place] [phone] from Last 3 Months Insurance MEDICAID - [place] MEDICARE Care Teams Garage Attendant Relationship Specialty Start Date End Date Simon Katz MD [address] [place] [address] [address] [place], [phone] PCP - General Family Medicine 02/03/24
== END 2024-05-11 14:11 | disposition home or self-care (01) ==
LOC: HO.CT 14:10
PROVIDERS: PCP Family Medicine; Visit Provider Family Medicine
DX: R91.8 Other nonspecific abnormal finding of lung field (principal)
CPT/HCPCS: 71250

== ENCOUNTER → 2024-05-11 14:11 | Outpatient (BNV) | payer MEDICARE, MEDICAID, SELFPAY | PROVIDERS: PCP Family Medicine; Visit Provider Radiology Diagnostic Radiology | DX: R91.8 Other nonspecific abnormal finding of lung field (principal) | CPT/HCPCS: 71250 ==

== ENCOUNTER 2024-07-04 06:24 | Inpatient (IN) | payer MEDICARE, MEDICAID, SELFPAY ==
--- NOTE | 2024-07-04 | ECG_ITS ---
Test Reason : medical clearance Blood Pressure : */* mmHG Vent. Rate : 63 BPM Atrial Rate : 63 BPM P-R Int : 148 ms QRS Dur : 72 ms QT Int : 402 ms P-R-T Axes : 63 70 64 degrees QTcB Int : 411 ms Normal sinus rhythm Normal ECG When compared with ECG of 09-Jan-2024 12:41, No significant changes seen Referred By: Rene Rucker Electronically Signed By: Daljit Gomez
--- NOTE | ~2024-07-04 | CT_ITS ---
CLINICAL HISTORY: fell in room CT head without contrast Comparison: 01/09/2024 Findings: No intracranial mass, midline shift, hydrocephalus, or acute hemorrhage. Mild chronic ischemic white matter disease without volume loss. No acute process in sinuses or mastoids. No acute bony abnormality. Impression: No acute intracranial process This document has been electronically signed by: Arpit Monteiro MD on 07/11/2024 22:06:15
--- NOTE | ~2024-07-04 | XR_ITS ---
EXAMINATION: XR BILATERAL HIPS WITH AP PELVIS CLINICAL INFORMATION: Unwitnessed fall in bathroom with lower back pain COMPARISON: None available. TECHNIQUE: AP and frog-leg views of each hip were obtained. FINDINGS: LEFT HIP: No fracture, dislocation, or suspicious bone lesion. Mild osteoarthritis in the left hip, with minimal spurring of the superolateral acetabulum. There is a mildly overriding posterior acetabulum, findings which can be associated with pincer-type LEANNE. There are degenerative changes in the lower lumbar spine and left SI joint. There are no soft tissue abnormalities. RIGHT HIP: No fracture, dislocation, or suspicious bone lesion. Mild osteoarthritis in the left hip, with minimal spurring of the superolateral acetabulum. There is a mildly overriding posterior acetabulum, findings which can be associated with pincer-type LEANNE. There are degenerative changes in the lower lumbar spine and left SI joint. There are no soft tissue abnormalities. XR/XR hips ESPERANZA min 3V IMPRESSION: 1. No acute bony abnormality of either hip joint. Electronically signed by: Felix Zavala MD 07/11/2024 01:41 PM EDT
--- NOTE | ~2024-07-04 | XR_ITS ---
EXAMINATION: XR LUMBOSACRAL SPINE CLINICAL INFORMATION: Unwitnessed fall in bathroom with lower back pain COMPARISON: None available. TECHNIQUE: Three views of the lumbosacral spine. FINDINGS: Marginal osteophyte formation and syndesmophyte formation at L1-2, L4-5 and L5-S1. Incomplete ankylosis at L5-S1. Endplate sclerosis and decreased intervertebral disc height at L1-2 and L2-3 levels. No acute cortical disruption. No gross malalignment. Superior endplate compression deformity representing 10% volume loss at L3. XR/XR lumbar spine 2-3V IMPRESSION: Multilevel thoracolumbar spondylosis with incomplete ankylosis L4-5 and L5-S1. Electronically signed by: Kamran Salinas MD 07/11/2024 01:38 PM EDT
[2024-07-04 06:26] VITALS: BP 138/59; PULSE 71; RESP 16; TEMP 36; O2SAT 99; BMI 18.3
--- OUTSIDE RECORDS SUMMARY | 2024-07-04 06:44 | XMS_ITS | Encounter Summary ---
Author Organization [facility] Address [address] [place] [address] Care Team Providers Care Textile Knitter Name Role Phone Simon Katz MD Primary Care Provider [phone] Encounter Details Date Type Department Care Team (Late st Contact Info) Description 03/13/[address] [facility] - Main Lab [address] [place] [address] Simon Katz MD 38 [facility] [address] [place], [phone] Essential (primary) hypertension Social History Tobacco [...] LAB CHEMISTRY METHOD 03/14/2024 11:31 AM EST [facility] Potassium 3.7 3.5 - 5.5 mmol/L LAB CHEMISTRY METHOD 03/14/2024 11:31 AM EST [facility] Chloride 110 96 - 110 mmol/L LAB CHEMISTRY METHOD 03/14/2024 11:31 AM [facility] CO2 25 21 - 32 mmol/L LAB CHEMISTRY METHOD 03/14/2024 11:31 AM [facility] Anion Gap 7 3 - 11 LAB CHEMISTRY METHOD 03/14/2024 11:31 AM [facility] Glucose 92 70 - 100 mg/dL LAB CHEMISTRY METHOD 03/14/2024 11:31 AM [facility] BUN 18 5 - 25 mg/dL LAB CHEMISTRY METHOD 03/14/2024 11:31 AM [facility] Creatinine 0.76 0.50 - 1.10 mg/dL LAB CHEMISTRY METHOD 03/14/2024 11:31 AM [facility] eGFR 85 >=60 mL/min/1. 73m2 LAB CHEMISTRY METHOD 03/14/2024 11:31 AM [facility] Comment:Calculation based on the??Chronic Kidney Disease Epidemiology Collaboration (CKD-EPI) equation refit??without adjustment for race. BUN/Creatinine Ratio 23.7 LAB CHEMISTRY METHOD 03/14/2024 11:31 AM [facility] Calcium 9.1 8.5 - 10.5 mg/dL LAB CHEMISTRY METHOD 03/14/2024 11:31 AM [facility] Blood Venous blood specimen / Unknown Venipuncture / Unknown 03/14/2024 6:22 AM EST 03/14/2024 10:16 AM EST us Simon Katz MD LAB BLOOD ORDERABLES Final Resul t [facility] [address] [place] [address], * (ABNORMAL) Complete blood count (03/14/2024 6:22 AM EST) WBC 6.3 4.8 - 10.8 K/mcL LAB HEMETOLOGY METHOD 03/14/2024 11:04 AM [facility] RBC 3.80 3.80 - 4.80 M/mcL LAB HEMETOLOGY METHOD 03/14/2024 11:04 AM [facility] Hemoglobin 11.1(L) 11.5 - 16.0 g/dL LAB HEMETOLOGY METHOD 03/14/2024 11:04 AM [facility] Hematocrit 35.5 35.0 - 47.0 % LAB HEMETOLOGY METHOD 03/14/2024 11:04 AM [facility] MCV 93.2 79.0 - 98.0 FL LAB HEMETOLOGY METHOD 03/14/2024 11:04 AM [facility] MCH 29.1 27.0 - 32.0 pcg LAB HEMETOLOGY METHOD 03/14/2024 11:04 AM [facility] MCHC 31.3(L) 32.0 - 37.0 g/dL LAB HEMETOLOGY METHOD 03/14/2024 11:04 AM [facility] RDW 13.3 11.0 - 15.0 % LAB HEMETOLOGY METHOD 03/14/2024 11:04 AM [facility] Platelets 249 130 - 400 K/mcL LAB HEMETOLOGY METHOD 03/14/2024 11:04 AM [facility] MPV 12.7(H) 7.0 - 11.0 FL LAB HEMETOLOGY METHOD 03/14/2024 11:04 AM [facility] NRBC 0.0 <1.0 % LAB HEMETOLOGY METHOD 03/14/2024 11:04 AM [facility] NRBC Absolute 0.00 <0.10 K/mcL LAB HEMETOLOGY METHOD 03/14/2024 11:04 AM [facility] Blood Venous blood specimen / Unknown Venipuncture / Unknown 03/14/2024 6:22 AM EST 03/14/2024 10:14 AM EST us Simon Katz MD LAB BLOOD ORDERABLES Final Resul t [facility] ([facility]) [facility] [address] [place] [address], documented in this encounter Visit Diagnoses Diagnosis Essential (primary) hypertension Unspecified essential hypertension documented in this encounter Care Teams Textile Knitter Relationship Specialty Start Date End Date Simon Katz MD [address] [place] [address], [phone] PCP - General Family Medicine 02/03/24 documented as of this encounter
--- OUTSIDE RECORDS SUMMARY | 2024-07-04 06:44 | XMS_ITS ---
Author Organization [facility] Address [address] [place] [phone] Care Team Providers Care Bisque Brusher Name Role Phone Vianey GONZALEZ, Luciana Primary Care Provider Jani Ramírez Jr REASON FOR VISIT cancelled appt Encounters Encounter Location Date Provider Diagnosis [facility] [address] [facility] [address] [place] [phone] 11/23/2023 Jani Orosco Jr Plan Of Treatment No Information Progress Notes * VALERIO BHAKTA MDOB:[birth year] (68 yo F)Acc No.[id number]:11/23/2023 Patient:?VAELRIO BHAKTA :1955???Age:68 Y???Sex:Female Address:[address] [place] [address] [address], [place] [address] * true * Date:? Generated for Elizabeth smith/Robles/eTransmitting on:?07/04/2024 06:44 AM EDT
--- OUTSIDE RECORDS SUMMARY | 2024-07-04 06:44 | XMS_ITS | Continuity of Care Document ---
Author Organization [facility] Address [address] [place] [address] Phone Care Team Providers Care Drawing In Hand Name Role Phone Unavailable Unavailable Unavailable Allergies, [...] Active Procedures Procedure Date Offic/outpt E&m Estab Mod-nj 2 17 Offic/outpt E&m Estab Low-mod 7 Offic/outpt E&m [facility] 7 Advance Directives Directive Yes / No Effective Date File Name No Information Encounters Encounter Description Practice Location Reason(s) For Visit Diagnoses Date Provider [facility], [address], [place], [place], [id number], tel:[phone] [facility] No Information 8 No Information Offic/outpt E&m Estab [facility] 2 [facility], [address], [place], [place], [id number], tel:[phone] [facility] hypertension (chief complaint)ast hma (chief complaint)TRAVIS D (chief complaint)col d sores (chief complaint) Essential (primary) hypertensionGERD w/o esophagitisUnspecifie d asthma, uncomplicatedHerpes simplex labialis 7 No Information Offic/outpt E&m Estab Low-mod [facility], [address], [place], [place], [id number], [place] tel:[phone] [facility] Establish care (chief complaint)Hyp ertension (chief complaint)TRAVIS D (chief complaint)ast hma (chief complaint) Essential (primary) hypertensionGERD w/o esophagitisUnspecifie d asthma, uncomplicated 7 No Information [facility], [address], [place], [place], [id number], [place] tel:[phone] [employer] Essential (primary) hypertensionUnspecifi ed asthma, uncomplicated 7 No Information Offic/outpt E&m [facility] 45 [employer], [address], [place], [place], [id number], [place] tel:[phone] [facility] Cough (chief complaint)hyp ertension (chief complaint)TRAVIS D (chief complaint) Bronchopneumonia, unspecified organismGERD w/o esophagitis 7 [facility]. [address] [place], [place], [id number], [place]. tel:[phone] Family History Family Member Type Diagnosis Age At Onset No Information Payers Payer name Insurance type Covered libertarian ID Maria Eugenia pineda(s) [employer] [id number] Social History Type Description Quantity Date Captured [...] The pt is here t o est [facility]. Last seen by PCP about 9 months [...] hours for last 3 days. hypertension (comments) [facility] [facility]. Has refills on HTN medications.PMHX- [...]
--- OUTSIDE RECORDS SUMMARY | 2024-07-04 06:44 | XMS_ITS | Encounter Summary ---
Author Organization Lexi [facility] Address [address] [place] [address] Care Team Providers Care Radio Repair Teacher Name Role Phone Simon Katz MD Primary Care Provider [phone] Encounter Details Date Type Department Care Team (Late st Contact Info) Description 03/20/2024 Lab Requisition [facility] - Main Lab 299 [facility] [place] [address] Simon Katz MD [address] [place] [address] [address] [place], [phone] Essential (primary) hypertension Social History Tobacco Use [...] hypertension documented in this encounter Care Teams Radio Repair Teacher Relationship Specialty Start Date End Date Simon Katz MD 38 [facility] [address] [place], [phone] PCP - General Family Medicine 02/03/24 documented as of this encounter
--- OUTSIDE RECORDS SUMMARY | 2024-07-04 06:45 | XMS_ITS | Clinical Summary ---
Author Organization 299 [facility] Address [address] [place] [address] Phone Care Team Providers Care Staff Certified Nurse Midwife Name Role Phone Simon Katz MD Primary Care Provider [phone] Social History Tobacco Use Types Packs/Day Years [...] DTaP,Tdap,and Td Vaccines (1 - Tdap) 11/09/1974 Pneumococcal Vaccine: 50+ Years (1 of 1 - PCV) 11/09/2005 Zoster Vaccines (1 of 2) 11/09/2005 COVID-19 Vaccine (1 - 2023- season) 2023 Influenza Vaccine (#1) 2023 Cholesterol Screening (Lipid Panel) 02/03/2024 Colorectal Cancer Screening: Colonoscopy 02/03/2024 Depression Screening 02/03/2024 Falls Risk Assessment 02/03/2024 Hepatitis C Screening 02/03/2024 Medicare Annual Wellness Visit 02/03/2024 Osteoporosis Screening (Bone Density Screening) 02/03/2024 Social Influencers of Health Screening 02/03/2024 Hypertension/CHF/CAD Annual BMP Blood Test 03/14/2025 03/14/2024, 03/07/2024, 02/29/2024, Additional history exists RSV Immunization Adult Patients (1 - 1-dose 75+ series) 11/09/2030 HIB [...] patient's age to complete this topic Meningococcal B Vaccine Aged Out No l onger eligible based on patient's age to complete this topic RSV Immunization Patients Under 20 months Aged Out No longer eligible based on patient's age to complete this topic Varicella Vaccines Aged Out No longer eligible based on patient's age to complete this topic Procedures Procedure Name Priority Date/Time Associated Diagnosis Comments BASIC METABOLIC PANEL Routine 03/14/2024 6:22 AM EST Essential (primary) hypertension from Last 3 Months or Most Recently Relevant to Health Maintenance Results * Basic metabolic panel (03/14/2024 6:22 AM EST) Sodium 142 133 - 145 mmol/L LAB CHEMISTRY METHOD 03/14/2024 11:31 AM [facility] Potassium 3.7 3.5 - 5.5 mmol/L LAB CHEMISTRY METHOD 03/14/2024 11:31 AM [facility] Chloride 110 96 - 110 mmol/L LAB CHEMISTRY METHOD 03/14/2024 11:31 AM [facility] CO2 25 21 - 32 mmol/L LAB CHEMISTRY METHOD 03/14/2024 11:31 AM [facility] Anion Gap 7 3 - 11 LAB CHEMISTRY METHOD 03/14/2024 11:31 AM [facility] Glucose 92 70 - 100 mg/dL LAB CHEMISTRY METHOD 03/14/2024 11:31 AM [facility] BUN 18 5 - 25 mg/dL LAB CHEMISTRY METHOD 03/14/2024 11:31 AM [facility] Creatinine 0.76 0.50 - 1.10 mg/dL LAB CHEMISTRY METHOD 03/14/2024 11:31 AM [facility] LAB eGFR 85 >=60 mL/min/1. 73m2 LAB CHEMISTRY METHOD 03/14/2024 11:31 AM EST [facility] LAB Comment:Calculation based on the??Chronic Kidney Disease Epidemiology Collaboration (CKD-EPI) equation refit??without adjustment for race. BUN/Creatinine Ratio 23.7 LAB CHEMISTRY METHOD 03/14/2024 11:31 AM EST [facility] Calcium 9.1 8.5 - 10.5 mg/dL LAB CHEMISTRY METHOD 03/14/2024 11:[address] [facility] Blood Venous blood specimen / Unknown Venipuncture / Unknown 03/14/2024 6:22 AM EST 03/14/2024 10:16 AM EST us Simon Katz MD LAB BLOOD ORDERABLES Final Resul t [facility] [address] [place] [address], from Last 3 Months or Most Recently Relevant to Health Maintenance Insurance MEDICAID - [place] MEDICARE Care Teams Staff Certified Nurse Midwife Relationship Specialty Start Date End Date Simon Katz MD [address] [place] [address], [phone] PCP - General Family Medicine 02/03/24
--- OUTSIDE RECORDS SUMMARY | 2024-07-04 06:45 | XMS_ITS | Encounter Summary ---
Author Organization Lexi [facility] Address [address] [place] [address] Care Team Providers Care Street Contractor Name Role Phone Simon Katz MD Primary Care Provider [phone] Encounter Details Date Type Department Care Team (Late st Contact Info) Description 02/29/2024 Lab Requisition [facility] - Main Lab [address] [place] [address] Simon Katz MD [address] [place] [address] [address] [place], [phone] Parkinsonism, unspecified (CMS/HCC) Social History Tobacco [...] LAB CHEMISTRY METHOD 02/29/2024 12:14 PM EST [facility] Potassium 4.3 3.5 - 5.5 mmol/L LAB CHEMISTRY METHOD 02/29/2024 12:14 PM EST [facility] Chloride 112(H) 96 - 110 mmol/L LAB CHEMISTRY METHOD 02/29/2024 12:[address] [facility] CO2 25 21 - 32 mmol/L LAB CHEMISTRY METHOD 02/29/2024 12:[address] [facility] Anion Gap 7 3 - 11 LAB CHEMISTRY METHOD 02/29/2024 12:[address] [facility] Glucose 66(L) 70 - 100 mg/dL LAB CHEMISTRY METHOD 02/29/2024 12:[address] [facility] BUN 23 5 - 25 mg/dL LAB CHEMISTRY METHOD 02/29/2024 12:[address] [facility] Creatinine 0.74 0.50 - 1.10 mg/dL LAB CHEMISTRY METHOD 02/29/2024 12:[address] [facility] eGFR 88 >=60 mL/min/1. 73m2 LAB CHEMISTRY METHOD 02/29/2024 12:[address] [facility] Comment:Calculation based on the??Chronic Kidney Disease Epidemiology Collaboration (CKD-EPI) equation refit??without adjustment for race. BUN/Creatinine Ratio 31.1 LAB CHEMISTRY METHOD 02/29/2024 12:[address] [facility] Calcium 8.9 8.5 - 10.5 mg/dL LAB CHEMISTRY METHOD 02/29/2024 12:[address] [facility] AST (SGOT) 22 10 - 42 unit/L LAB CHEMISTRY METHOD 02/29/2024 12:[address] [facility] ALT (SGPT) 24 10 - 60 unit/L LAB CHEMISTRY METHOD 02/29/2024 12:[address] [facility] Alkaline Phosphatase 36(L) 42 - 121 unit/L LAB CHEMISTRY METHOD 02/29/2024 12:[address] [facility] Total Protein 5.8(L) 6.0 - 8.0 g/dL LAB CHEMISTRY METHOD 02/29/2024 12:[address] [facility] Albumin 3.2 3.2 - 5.0 g/dL LAB CHEMISTRY METHOD 02/29/2024 12:[address] [facility] Total Bilirubin 0.4 0.0 - 1.4 mg/dL LAB CHEMISTRY METHOD 02/29/2024 12:[address] [facility] Blood Venous blood specimen / Unknown Venipuncture / Unknown 02/29/2024 6:57 AM EST 02/29/2024 10:58 AM EST us Simon Katz MD LAB BLOOD ORDERABLES Final Resul t [facility] [address] [place] [address], [place] [phone] * (ABNORMAL) Complete blood count (02/29/2024 6:57 AM EST) WBC 5.6 4.8 - 10.8 K/mcL LAB HEMETOLOGY METHOD 02/29/2024 11:[address] [facility] RBC 3.70(L) 3.80 - 4.80 M/mcL LAB HEMETOLOGY METHOD 02/29/2024 11:[address] [facility] Hemoglobin 10.8(L) 11.5 - 16.0 g/dL LAB HEMETOLOGY METHOD 02/29/2024 11:[address] [facility] Hematocrit 34.4(L) 35.0 - 47.0 % LAB HEMETOLOGY METHOD 02/29/2024 11:[address] [facility] MCV 93.7 79.0 - 98.0 FL LAB HEMETOLOGY METHOD 02/29/2024 11:[address] [facility] MCH 29.4 27.0 - 32.0 pcg LAB HEMETOLOGY METHOD 02/29/2024 11:[address] [facility] MCHC 31.4(L) 32.0 - 37.0 g/dL LAB HEMETOLOGY METHOD 02/29/2024 11:46 AM EST [facility] RDW 13.4 11.0 - 15.0 % LAB HEMETOLOGY METHOD 02/29/2024 11:[address] [facility] Platelets 203 130 - 400 K/mcL LAB HEMETOLOGY METHOD 02/29/2024 11:[address] [facility] MPV 13.6(H) 7.0 - 11.0 FL LAB HEMETOLOGY METHOD 02/29/2024 11:46 AM EST [facility] NRBC 0.0 <1.0 % LAB HEMETOLOGY METHOD 02/29/2024 11:[address] [facility] NRBC Absolute 0.00 <0.10 K/mcL LAB HEMETOLOGY METHOD 02/29/2024 11:[address] [facility] Blood Venous blood specimen / Unknown Venipuncture / Unknown 02/29/2024 6:57 AM EST 02/29/2024 10:58 AM EST us Simon Katz MD LAB BLOOD ORDERABLES Final Resul t [facility] [address] [place] [address], documented in this encounter Visit Diagnoses Diagnosis Parkinsonism, unspecified (CMS/HCC) documented in this encounter Care Teams Street Contractor Relationship Specialty Start Date End Date Simon Katz MD [address] [place] [address] [address] [place], [phone] PCP - General Family Medicine 02/03/24 documented as of this encounter
--- OUTSIDE RECORDS SUMMARY | 2024-07-04 06:45 | XMS_ITS | Encounter Summary ---
Author Organization Lexi [facility] Address [address] [place] [address] Care Team Providers Care Physical Chemistry Professor Name Role Phone Simon Katz MD Primary Care Provider [phone] Encounter Details Date Type Department Care Team (Late st Contact Info) Description 02/03/2024 Lab Requisition [facility] - Main Lab [address] [place] [address] Simon Katz MD [address] [place] [address] [address] [place], [phone] Essential (primary) hypertension Social History Tobacco [...] LAB CHEMISTRY METHOD 02/06/2024 11:02 AM EST [facility] Potassium 3.9 3.5 - 5.5 mmol/L LAB CHEMISTRY METHOD 02/06/2024 11:02 AM EST [facility] Chloride 114(H) 96 - 110 mmol/L LAB CHEMISTRY METHOD 02/06/2024 11:02 AM EST [facility] CO2 26 21 - 32 mmol/L LAB CHEMISTRY METHOD 02/06/2024 11:02 AM [facility] Anion Gap 6 3 - 11 LAB CHEMISTRY METHOD 02/06/2024 11:02 AM [facility] Glucose 70 70 - 100 mg/dL LAB CHEMISTRY METHOD 02/06/2024 11:02 AM [facility] BUN 20 5 - 25 mg/dL LAB CHEMISTRY METHOD 02/06/2024 11:02 AM [facility] Creatinine 0.72 0.50 - 1.10 mg/dL LAB CHEMISTRY METHOD 02/06/2024 11:02 AM [facility] LAB eGFR 91 >=60 mL/min/1. 73m2 LAB CHEMISTRY METHOD 02/06/2024 11:02 AM [facility] LAB Comment:Calculation based on the??Chronic Kidney Disease Epidemiology Collaboration (CKD-EPI) equation refit??without adjustment for race. BUN/Creatinine Ratio 27.8 LAB CHEMISTRY METHOD 02/06/2024 11:02 AM [facility] Calcium 8.9 8.5 - 10.5 mg/dL LAB CHEMISTRY METHOD 02/06/2024 11:02 AM [facility] Blood Venous blood specimen / Unknown Venipuncture / Unknown 02/06/2024 5:47 AM EST 02/06/2024 9:44 AM EST us Simon Katz MD LAB BLOOD ORDERABLES Final Resul t [facility] [address] [place] [address], documented in this encounter Visit Diagnoses Diagnosis Essential (primary) hypertension Unspecified essential hypertension documented in this encounter Care Teams Physical Chemistry Professor Relationship Specialty Start Date End Date Simon Katz MD [address] [place] [address], [phone] PCP - General Family Medicine 02/03/24 documented as of this encounter
--- OUTSIDE RECORDS SUMMARY | 2024-07-04 06:45 | XMS_ITS | Encounter Summary ---
Author Organization Lexi [facility] Address [address] [place] [address] Care Team Providers Care Cashier Payments Received Name Role Phone Simon Katz MD Primary Care Provider [phone] Encounter Details Date Type Department Care Team (Late st Contact Info) Description 03/07/2024 Lab Requisition [facility] - Main Lab [address] [place] [address] Simon Katz MD 38 [facility] [address] [place], [phone] Essential (primary) hypertension; Poikiloderma vasculare atrophicans; [...] LAB CHEMISTRY METHOD 03/07/2024 12:26 PM EST [facility] Potassium 3.8 3.5 - 5.5 mmol/L LAB CHEMISTRY METHOD 03/07/2024 12:26 PM [facility] Chloride 109 96 - 110 mmol/L LAB CHEMISTRY METHOD 03/07/2024 12:26 PM [facility] CO2 26 21 - 32 mmol/L LAB CHEMISTRY METHOD 03/07/2024 12:26 PM [facility] Anion Gap 9 3 - 11 LAB CHEMISTRY METHOD 03/07/2024 12:26 PM [facility] Glucose 111(H) 70 - 100 mg/dL LAB CHEMISTRY METHOD 03/07/2024 12:26 PM [facility] BUN 16 5 - 25 mg/dL LAB CHEMISTRY METHOD 03/07/2024 12:26 PM [facility] Creatinine 0.72 0.50 - 1.10 mg/dL LAB CHEMISTRY METHOD 03/07/2024 12:26 PM [facility] eGFR 91 >=60 mL/min/1. 73m2 LAB CHEMISTRY METHOD 03/07/2024 12:26 PM [facility] Comment:Calculation based on the??Chronic Kidney Disease Epidemiology Collaboration (CKD-EPI) equation refit??without adjustment for race. BUN/Creatinine Ratio 22.2 LAB CHEMISTRY METHOD 03/07/2024 12:26 PM [facility] Calcium 9.2 8.5 - 10.5 mg/dL LAB CHEMISTRY METHOD 03/07/2024 12:26 PM [facility] Blood Venous blood specimen / Unknown Venipuncture / Unknown 03/07/2024 8:35 AM EST 03/07/2024 10:21 AM EST us Simon Katz MD LAB BLOOD ORDERABLES Final Resul t [facility] [address] [place] [address], * (ABNORMAL) Complete blood count (03/07/2024 8:35 AM EST) [facility] WBC 5.4 4.8 - 10.8 K/mcL LAB HEMETOLOGY METHOD 03/07/2024 12:32 PM [facility] RBC 3.70(L) 3.80 - 4.80 M/mcL LAB HEMETOLOGY METHOD 03/07/2024 12:32 PM [facility] Hemoglobin 10.7(L) 11.5 - 16.0 g/dL LAB HEMETOLOGY METHOD 03/07/2024 12:32 PM [facility] Hematocrit 33.9(L) 35.0 - 47.0 % LAB HEMETOLOGY METHOD 03/07/2024 12:32 PM [facility] MCV 92.4 79.0 - 98.0 FL LAB HEMETOLOGY METHOD 03/07/2024 12:32 PM [facility] MCH 29.2 27.0 - 32.0 pcg LAB HEMETOLOGY METHOD 03/07/2024 12:32 PM [facility] MCHC 31.6(L) 32.0 - 37.0 g/dL LAB HEMETOLOGY METHOD 03/07/2024 12:32 PM [facility] RDW 13.3 11.0 - 15.0 % LAB HEMETOLOGY METHOD 03/07/2024 12:32 PM [facility] Platelets 164 130 - 400 K/mcL LAB HEMETOLOGY METHOD 03/07/2024 12:32 PM [facility] MPV 13.2(H) 7.0 - 11.0 FL LAB HEMETOLOGY METHOD 03/07/2024 12:32 PM [facility] NRBC 0.0 <1.0 % LAB HEMETOLOGY METHOD 03/07/2024 12:32 PM [facility] NRBC Absolute 0.00 <0.10 K/mcL LAB HEMETOLOGY METHOD 03/07/2024 12:32 PM EST [facility] Blood Venous blood specimen / Unknown Venipuncture / Unknown 03/07/2024 8:35 AM EST 03/07/2024 10:21 AM EST us Simon Katz MD LAB BLOOD ORDERABLES Final Resul t [facility] [address] [place] [address], documented in this encounter Visit Diagnoses Diagnosis Essential (primary) hypertension Unspecified essential hypertension Poikiloderma vasculare atrophicans Encounter for examination for admission to [facility] documented in this encounter Care Teams Cashier Payments Received Relationship Specialty Start Date End Date Simon Katz MD [address] [place] [address] [address] [place], [phone] PCP - General Family Medicine 02/03/24 documented as of this encounter
--- OUTSIDE RECORDS SUMMARY | 2024-07-04 06:45 | XMS_ITS ---
Author Organization [facility] Address [address] [place] [address] Care Team Providers Care Network Designer Name Role Phone Vianey GONZALEZ, Luciana Primary Care Provider Jani Ramírez Jr [phone] REASON FOR VISIT recall colonoscopy Encounters Encounter Location Date Provider Diagnosis [facility] [address] [facility] [address] [place] [phone] 2023 Jani Orosco Jr Plan Of Treatment No Information Progress Notes * VALERIO BHAKTA MDOB:[birth year] (68 yo F)Acc No.[id number]:2023 Progress Notes Patient:?VALERIO BHAKTA Provider:?Jani Orosco MD :1955???Age:68 Y???Sex:Female D ate:2023 Address:[address] [place], [place] [id number] Pcp:Luciana Winters MD Subjective: * Chief Complaints: * ???1. Recall colonoscopy. * Medical History:? Objective: * Vitals:? Assessment: Plan: * Treatment: * * The named appointment provid er may or may not be the originator of this progress note, and it is not deemed complete until electronically signed by the appointment provider. Sign off status: Pending * Provider:?Jani Orosco MD Date:?0 2023 Generated for Elizabeth smith/Fachristine/eTransmitting on:?07/04/2024 06:45 AM EDT
--- OUTSIDE RECORDS SUMMARY | 2024-07-04 06:45 | XMS_ITS ---
Author Organization [facility] Address [address] [place] [address] Care Team Providers Care Facility Mechanic Name Role Phone Vianey GONZALEZ, Luciana Primary Care Provider Jani Ramírez Jr REASON FOR VISIT Patient presents today for a recall colonoscopy Encounters Encounter Location Date Provider Diagnosis [facility] [address] [facility] [address] [place] [address] 11/24/2023 Jani Orosco Jr Plan Of Treatment No Information Progress Notes * VALERIO BHAKTA MDOB:[birth year] (68 yo F)Acc No.[id number]:11/24/2023 Progress Notes Patient:?VALERIO BHAKTA Provider:?Jani Orosco MD :1955???Age:68 Y???Sex:Female D ate:11/24/2023 Address:[address] [place] [address] [address], [facility] Pcp:Luciana Winters MD Subjective: * Chief Complaints: * ???1. Patient presents today for a recall colonoscopy. * Medical History:? Objective: * Vitals:? Assessment: Plan: * Treatment: * * The named appointment provid er may or may not be the originator of this progress note, and it is not deemed complete until electronically signed by the appointment provider. Sign off status: Pending * Provider:?Jani Orosco MD Date:?0 11/24/2023 Generated for Elizabeth smith/Robles/eTransmitting on:?07/04/2024 06:44 AM EDT
--- OUTSIDE RECORDS SUMMARY | 2024-07-04 06:45 | XMS_ITS | Patient Health Record ---
Author Organization [facility] Address [address] [place] [address] Care Team Providers Care Perinatal Nurse Name Role Phone Vianey GONZALEZ, Luciana Primary Care Provider Jani Ramírez Jr Reason For Referral No Information Medications Medication SIG (Take, Route, Fr equency, Duration) [...] 1 tablet Orally Once a day Active Immunizations Vaccine Route Administration Date Status Comme nts Flu vaccine no Preserv 3 and > Unknown 04/06/2017 Admin istered Social History Tobacco Use: Social History Observation Description Date Details (start date - stop date) Former Smoker NA - NA Tobacco Use/Smoking Question Answer Notes Patient is a former smoker How long has it been since you last smoked? 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 Encounters Encounter Location Date Provider Diagnosis [facility] [address] [place] [address] 11/23/2023 Jani Orosco Jr Plan Of Treatment Future Test Test Name Order Date COLONOSCOPY 02/23/2012 COLONOSCOPY 08/24/2017 Insurance Providers Payer Name Payer Address Payer Phone Subscriber Number Group Number Insured Name Patient Relationship to Insured Coverage Start Date Coverage End Date MEDICARE OF [place] [address] [place] [id number] VALERIO BHAKTA Self - patient is the insured MEDICAID OF [facility] [address] [place] [address] [phone] [id number] VALERIO BHAKTA Self - patient is the insured Medical (General) History Medical History History ICD Code colonoscopy 04/26/12 rectal polyps schizophrenia elevated cholesterol Allergies Surgical History Surgery Date(Month/Year) left foot surgery tubal ligation cyst removal lumpectomy, left breast-benign
--- NOTE | 2024-07-04 08:05 | ED_ITS ---
HPI - General Adult General Chief complaint: General Medical Stated complaint: insomnia Time Seen by Provider: 07/04/24 07:39 Source: patient Mode of arrival: ambulatory Limitations: no limitations History of Present Illness HPI narrative: 68 years old the patient with history of schizophrenia, PTSD, hypertension presented to the emergency department with a chief complaint of inability to sleep. According to the roommate that he is in the room she has been in bed all the time. Patient has been off of the psychiatric medication. Onset (ago): day(s) (3) Radiation: non-radiation Severity: moderate Pain Consistency: constant Relieving factors: none Exacerbating factors: none Associated symptoms: denies other symptoms Related Data Home Medications ?Medication ?Instructions ?Recorded ?Confirmed alendronate 70 mg tablet 70 mg PO FR 01/09/24 07/04/24 Allergies Allergy/AdvReac Type Severity Reaction Status Date / Time No Known Allergies Allergy Verified 07/04/24 06:29 Review of Systems 2 ENT: Reports system reviewed and no additional complaints, except as documented Cardiovascular: Cardiovascular: Reports no additional cardiovascular complaints Psychiatric: Psychiatric: Reports as per HPI and Reports abnormal sleep pattern PMFSH Past Medical History Attestation statement: The following information was validated with the patient. Medical History Porcelain gallbladder Schizoaffective disorder Anxiety HLD (hyperlipidemia) HTN (hypertension) Schizophrenia Social History Social History Household Members: Other Household Members Other:: room mate Housing: Apartment Do you presently have visiting nurse or other home services: No Alcohol intake: former Patient Tobacco Use Status: Never used Tobacco Smoked in Last 30 Days: No Use of substances other than those prescribed or required for medical reasons: No Advance Directives: No Do you have a plan to hurt others: No Plan service: No Current 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 status: 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 Sexual orientation: Straight/Heterosexual Physical Exam ED Vital Signs: Vital Signs - 24 hr 07/04/24 12:11 07/05/24 06:18 Temperature 97.6 F Pulse Rate 55 85 Respiratory Rate 16 16 Blood Pressure 130/70 109/77 Pulse Oximetry 100 98 Oxygen Delivery Method Room Air Room Air BMI result Body Mass Index 18.3 No acute distress comfortable in the stretcher Const General: cooperative, comfortable and no acute distress Nutritional Appearance: average body habitus Orientation/consciousness: patient oriented x3 Limitations: no limitations HENMT Head: Yes normal to inspection General nose exam: Normal external nose present Face and sinus: Yes normal facial exam Neck Neck: Yes normal visual inspection and Yes full ROM Chest Chest palpation & inspection: normal inspection of the chest Resp Effort & Inspection: normal respiratory effort Auscultation: clear to auscultation bilaterally Cardio Jugular venous distension: no JVD Rate: regular rate Rhythm: regular rhythm GI Inspection: Yes normal to inspection Palpation (GI): Soft to palpation, not firm and no guarding Skin General skin exam: no rashes or lesions noted, elasticity normal and turgor normal Lesions: no lesions Neuro General: patient oriented x3 Cranial nerves: Yes CN's II-XII intact bilaterally Motor exam (neuro): 5/5 motor strength present throughout Extrem General: Yes normal to inspection and Yes full ROM Course Course Course Narrative: Time: 11:26 Date: 07/05/24 Provider: Simon Wong MD Patient in physician observation for psychiatric evaluation.? No acute events reported overnight. No current complaints. VS stable.?Patient is admitted as per CARE team recommendations Reevaluation(s) Reevaluation #1: Patient was seen by the crisis team she will be inpatient level of care decompensated schizophrenia. Labs okay UA as a few WBC we will start p.o. Keflex pending culture urine result Time: 10:42 Reevaluation #2: Patient he is [facility] psych bed search Time: 13:47 Medications Administered Discontinued Medications Generic Name Dose Route Start Last Admin Trade Name Freq PRN Reason Stop Dose Admin Cephalexin HCl 500 mg 07/04/24 10:39 07/04/24 10:54 Cephalexin 500 Mg Capsule PO 07/04/24 10:40 500 mg TID ONE Administration Medical Decision Making Medical Decision Making [facility] Narrative: Patient is here with the insomnia, flat affect, lack of energy we will check baseline blood work we will check crisis evaluation she is off her psych meds Differential Diagnosis Differential Diagnoses: The differential diagnosis associated with the presentation includes Decompensated schizophrenia, urinary tract infection/anemia Admission/Observation Consideration of admission/observation: Escalation of care including admission/observation considered Lab Data 07/04/24 08:24 07/04/24 08:24 Labs: Lab Results 07/04/24 Range/Units 08:24 WBC 5.0 (4.8-10.8) X10*3/uL RBC 4.69 D (4.20-5.50) X10*6/uL Hgb 13.4 D (12.0-16.0) g/dl Hct 40.6 D (37.0-47.0) % MCV 86.6 (80.0-98.0) fL MCH 28.6 (27.0-33.0) pg MCHC 33.0 (31.0-35.0) g/dl RDW 13.2 (11.0-16.0) % Plt Count 172 D (160-400) X10*3/uL MPV 13.0 H (9.4-12.3) fL Immature Gran % (Auto) 1.0 H (0.0-0.4) % Neut % (Auto) 47.7 (45-73) % Lymph % (Auto) 36.3 (20-40) % [place] % (Auto) 11.4 H (2-11) % Eos % (Auto) 2.6 (0-4) % Baso % (Auto) 1.0 (0-2) % Lymph # (Auto) 1.8 (1.2-4.9) X10*3/uL [place] # (Auto) 0.6 (0.1-1.2) X10*3/uL Eos # (Auto) 0.1 (0.0-0.4) X10*3/uL Baso # (Auto) 0.1 (0.0-0.2) X10*3/uL Abs Immat Gran (auto) 0.05 H (0.00-0.03) X10*3/uL Absolute Neuts (auto) 2.4 (2.0-8.3) x10*3/uL Absolute Nucleated RBC 0.000 (0.0-0.012) X10*3/uL Nucleated RBC % (auto) 0.0 (0.0-0.2) /100WBC Sodium 144 (135-145) mmol/L Potassium 3.7 (3.3-5.1) mmol/L Chloride 114 H (96-108) mmol/L Carbon Dioxide 23 (22-29) mmol/L Anion Gap 11 L (12-20) BUN 15 (9-16) mg/dL Creatinine 0.78 (0.5-1.4) mg/dL Estim Creat Clear Calc 52.6 Estimated GFR > 60 Random Glucose 90 (60-115) mg/dL Calcium 9.6 D (8.4-10.2) mg/dL Total Bilirubin 0.5 (0.0-1.0) mg/dL AST 26 (5-31) U/L ALT 20 (0-31) U/L Alkaline Phosphatase 45 (39-117) U/L Total Protein 6.8 (6.5-8.0) g/dL Albumin 3.9 (3.5-5.0) g/dL Urine Color Yellow Urine Appearance Cloudy Urine pH 6.0 (5.0-9.0) Ur Specific [place] 1.020 (1.005-1.025) Urine Protein Negative (Neg-Trace) mg/dL Urine Glucose (UA) Negative (Negative) mg/dL Urine Ketones Negative (Negative) mg/dL Urine Blood Negative (Negative) Urine Nitrite Positive H (Negative) Ur Leukocyte Esterase Large (3+) H (Negative) Urine RBC 0-2 (0-2) /HPF Urine WBC >50 H (0-5) /HPF Ur Squamous Epith Cells 11-20 (0-2) /HPF Urine Bacteria 4+ (None Seen) Hyaline Casts 0-2 (0-2) /LPF Urine Opiates Screen Not Detected (Not Detect) Ur Buprenorphine Scrn Not Detected (Not Detect) ng/mL Ur Oxycodone Screen Not Detected (Not Detect) ng/mL Urine Methadone Screen Not Detected (Not Detect) ng/mL Urine Fentanyl Screen Not Detected (Not Detect) Ur Barbiturates Screen Not Detected (Not Detect) Ur Phencyclidine Scrn Not Detected (Not Detect) Ur Amphetamines Screen Not Detected (Not Detect) U Benzodiazepines Scrn Not Detected (Not Detect) Urine Cocaine Screen Not Detected (Not Detect) U Marijuana (THC) Screen Not Detected (Not Detect) Discharge Plan Discharge Clinical Impression: Acute UTI Schizophrenia Qualifiers: Schizophrenia type: undifferentiated schizophrenia Qualified Code(s): F20.3 - Undifferentiated schizophrenia Patient Disposition: Admitted As Inpatient
[2024-07-04 08:27] VITALS: BP 147/88; PULSE 56; RESP 16; TEMP 37.1; O2SAT 99
[2024-07-04 08:29] LABS: MANUAL DIFF FLAG NO
[2024-07-04 08:33] LABS: Appearance Urine Cloudy; Basophils Absolute Auto 0.1 X10*3/uL (0.0-0.2); Color Urine Yellow; Eosinophils Absolute Auto 0.1 X10*3/uL (0.0-0.4); Eosinophils Percent Auto 2.6 % (0-4); Glucose Urine UA Negative (Negative); Hematocrit 40.6 % (37.0-47.0); Hemoglobin 13.4 g/dl (12.0-16.0); Imm Gran Abs Auto 0.05 X10*3/uL (0.00-0.03); Leukocyte Esterase Urine Large (3+) (Negative); Lymphocytes Absolute Auto 1.8 X10*3/uL (1.2-4.9); Lymphocytes Percent Auto 36.3 % (20-40); Mean Corpuscular Hemoglobin 28.6 pg (27.0-33.0); Mean Corpuscular Volume 86.6 fL (80.0-98.0); Monocytes Absolute Auto 0.6 X10*3/uL (0.1-1.2); Monocytes Percent Auto 11.4 % (2-11); Neutrophils Absolute Auto 2.4 x10*3/uL (2.0-8.3); Neutrophils Percent Auto 47.7 % (45-73); Nitrite Urine Positive (Negative); Platelet Count 172 X10*3/uL (160-400); Red Blood Count 4.69 X10*6/uL (4.20-5.50); Red Cell Distribution Width 13.2 % (11.0-16.0); UMIC TRIGGER UACC YES; Urine Blood Negative (Negative); Urine Ketones Negative (Negative); Urine Protein Negative (Neg-Trace)
--- NOTE | 2024-07-04 08:37 | PC.NURSE ---
alert and oriented. vss and up to date aside from being slightly hypertensive. pt presents to the ED w/ complaints of insomia x 1 night. pt reports inability to sleep d/t being nonmedcompliant w/ medication for hx of schizoaffective disorder x some time. pt unable to specify how long. pt also reports discomfort to eyes bilaterally d/t lack of sleep. pt otherwise has no complaints aside from requesting a medication refill. pt seemingly unkempt. on RA w/o difficulty. no sob/wob noted. respirations even/unlabored. labs/urine obtained/sent to lab. pending care team eval. plan of care ongoing. call marcus placed within reach.
[2024-07-04 08:39] LABS: Amphetamine Screen Urine Not Detected (Not Detect); Barbiturates, Urine Not Detected (Not Detect); Benzodiazepines Screen Urine Not Detected (Not Detect); Buprenorphine Scr Not Detected (Not Detect); Cannabinoid Screen Urine Not Detected (Not Detect); Cocaine Screen Urine Not Detected (Not Detect); Fentanyl, urine Not Detected (Not Detect); Methadone Screen, Urine Not Detected (Not Detect); Opiate Screen Urine Not Detected (Not Detect); Oxycodone Screen Urine Not Detected (Not Detect); Phencyclidine Screen Urine Not Detected (Not Detect)
[2024-07-04 08:47] LABS: Alanine Aminotransferase 20 U/L (0-31); Albumin Level 3.9 g/dL (3.5-5.0); Alkaline Phosphatase 45 U/L (39-117); Anion Gap 11 (12-20); Aspartate Amino Transferase 26 U/L (5-31); Bilirubin Total 0.5 mg/dL (0.0-1.0); Blood Urea Nitrogen 15 mg/dL (9-16); Calcium 9.6 mg/dL (8.4-10.2); Carbon Dioxide 23 mmol/L (22-29); Chloride 114 mmol/L (96-108); Creatinine Clr Calc Pharmacy 52.6; Estimated Glomerular Filt Rate > 60; Glucose Random 90 mg/dL (60-115); Potassium 3.7 mmol/L (3.3-5.1); Sodium 144 mmol/L (135-145); Total Protein 6.8 g/dL (6.5-8.0)
[2024-07-04 08:56] LABS: Bacteria Urine 4+ (None Seen); Hyaline Casts Urine 0-2 /LPF (0-2); RBC Urine 0-2 /HPF (0-2); UACC Culture Trigger YES; WBC Urine >50 /HPF (0-5)
--- NOTE | 2024-07-04 10:30 | PC.NURSE ---
pt seen by care team. plan of care ongoing.
[2024-07-04 10:31] VITALS: BP 119/75; PULSE 53; RESP 12; TEMP 36.8; O2SAT 99
[2024-07-04] MEDS: cephALEXin 500 MG CAPSULE PO (10:54)
[2024-07-04 12:11] VITALS: BP 130/70; PULSE 55; RESP 16; O2SAT 100
--- NOTE | 2024-07-04 12:29 | PC.NURSE ---
Assumed care of patient at 1230, patient is calm and cooperative, laying in bed at this time, respirations even and unlabored
--- NOTE | 2024-07-04 19:58 | PC.NURSE ---
Patient reports she takes no medications at home
[2024-07-05 06:18] VITALS: BP 109/77; PULSE 85; RESP 16; TEMP 36.4; O2SAT 98
--- NOTE | 2024-07-05 07:25 | PC.NURSE ---
Care of Pt assumed at change of shift. Pt is up and requests a tuna sandwich. No complaints offered and NAD noted.
[2024-07-05 12:13] VITALS: BMI 18.5
--- NOTE | 2024-07-05 12:41 | HO.PSYADMNOT ---
[facility] Date of Service: 07/05/24 Chief Complaint: Crisis Sources of Information: patient interviewed, chart reviewed and crisis/core team assessment reviewed HPI Subjective Notes: [place] Warning and Conditional Voluntary Narrative: Patient is a 68-year-old female with history of schizophrenia and PTSD who self presented to ER due to poor sleep secondary to medication noncompliance. Per crisis report, patient self presented reporting poor sleep and that something is wrong with her eyes. Patient reports she has been medication noncompliant. She reports missing her prescriber appointment in April 2024 and losing her prescriber. Patient's roommate reports he does not believe patient has been taking her medications for months. Patient appeared anxious, disheveled, some confusion. Patient denies SI/HI/VH/AH. She does not appear to be responding to internal stimuli. Roommate reports patient has been pacing and restless throughout the home and has not been sleeping. History of psychiatric admissions. Denies any substance use. Utox negative. During admission assessment, patient presents alert and oriented x3. calm and cooperative. Patient reports she has been unable to sleep for few days; patient stated, I can't sleep. I haven't been taking medications since April. My doctor doesn't know that I don't take them anymore . Appears thought blocking at times. Patient reports she would like help restarting her medications and being able to sleep. She reports having psychiatric providers through [facility] but states she no longer is connected. Denies SI/HI/VH/AH. Past Psychiatric History: History of inpatient psychiatric hospitalizations. Does not have outpatient psychiatric providers. hx of providers with [facility]. History of SIB via superficial cutting in 2022. Medical Evaluation Reviewed: Yes [facility] Medical History Porcelain gallbladder Schizoaffective disorder Anxiety HLD (hyperlipidemia) HTN (hypertension) Schizophrenia Family History: One of her 2 daughters committed suicide 7 years ago after her father's Social History: lives with a roommate. graduated high school. . 2 daughters, 1 living. Substance History: Denies Trauma History: yes Diagnostics Vital Signs (24Hr): Vital Signs - 24 hr 07/05/24 06:18 Temperature 97.6 F Pulse Rate 85 Respiratory Rate 16 Blood Pressure 109/77 Pulse Oximetry 98 Oxygen Delivery Method Room Air BMI result Body Mass Index 18.5 Labs 07/04/24 08:24 07/05/24 12:35 Labs: Laboratory Results - last 48 hr 07/04/24 08:24 WBC 5.0 RBC 4.69 D Hgb 13.4 D Hct 40.6 D MCV 86.6 MCH 28.6 MCHC 33.0 RDW 13.2 Plt Count 172 D MPV 13.0 H Immature Gran % (Auto) 1.0 H Neut % (Auto) 47.7 Lymph % (Auto) 36.3 [place] % (Auto) 11.4 H Eos % (Auto) 2.6 Baso % (Auto) 1.0 Lymph # (Auto) 1.8 [place] # (Auto) 0.6 Eos # (Auto) 0.1 Baso # (Auto) 0.1 Abs Immat Gran (auto) 0.05 H Absolute Neuts (auto) 2.4 Absolute Nucleated RBC 0.000 Nucleated RBC % (auto) 0.0 Sodium 144 Potassium 3.7 Chloride 114 H Carbon Dioxide 23 Anion Gap 11 L BUN 15 Creatinine 0.78 Estim Creat Clear Calc 52.6 Estimated GFR > 60 Random Glucose 90 Calcium 9.6 D Total Bilirubin 0.5 AST 26 ALT 20 Alkaline Phosphatase 45 Total Protein 6.8 Albumin 3.9 Urine Color Yellow Urine Appearance Cloudy Urine pH 6.0 Ur Specific [place] 1.020 Urine Protein Negative Urine Glucose (UA) Negative Urine Ketones Negative Urine Blood Negative Urine Nitrite Positive H Ur Leukocyte Esterase Large (3+) H Urine RBC 0-2 Urine WBC >50 H Ur Squamous Epith Cells 11-20 Urine Bacteria 4+ Hyaline Casts 0-2 Urine Opiates Screen Not Detected Ur Buprenorphine Scrn Not Detected Ur Oxycodone Screen Not Detected Urine Methadone Screen Not Detected Urine Fentanyl Screen Not Detected Ur Barbiturates Screen Not Detected Ur Phencyclidine Scrn Not Detected Ur Amphetamines Screen Not Detected U Benzodiazepines Scrn Not Detected Urine Cocaine Screen Not Detected U Marijuana (THC) Screen Not Detected Meds/Allergies Meds Home Medications ?Medication ?Instructions ?Recorded ?Confirmed ?Type alendronate 70 mg tablet 70 mg PO FR 01/09/24 07/04/24 History benztropine 0.5 mg tablet 0.5 mg PO BID 07/05/24 07/05/24 History carbidopa 25 mg-levodopa 100 mg 1 tab PO BID 07/05/24 07/05/24 History tablet fenofibrate 160 mg tablet 160 mg PO DAILY 07/05/24 07/05/24 History metoprolol tartrate 25 mg tablet 25 mg PO BID 07/05/24 07/05/24 History mirtazapine 7.5 mg tablet 7.5 mg PO BEDTIME 07/05/24 07/05/24 History quetiapine 50 mg tablet 50 mg PO BEDTIME 07/05/24 07/05/24 History risperidone 1 mg tablet 1 mg PO BEDTIME 07/05/24 07/05/24 History simvastatin 20 mg tablet 20 mg PO BEDTIME 07/05/24 07/05/24 History Allergies Allergies Allergy/AdvReac Type Severity Reaction Status Date / Time No Known Allergies Allergy Verified 07/04/24 06:29 Mental Status Exam Mental Status Exam Narrative: Pt is alert and oriented; behavior is cooperative and calm; dressed in casual attire, disheveled; mood is described as anxious ; eye contact appropriate; Speech is normal rate, volume and not pressured; thought blocking at times, focused on restarting medications and sleep; denies SI/HI/VH/AH. Assessment & Plan Assessment & Plan (1) Schizophrenia: Status: Acute Qualifiers: Schizophrenia type: undifferentiated schizophrenia Qualified Code(s): F20.3 - Undifferentiated schizophrenia Code(s): F20.9 - Schizophrenia, unspecified (2) PTSD (post-traumatic stress disorder): Status: Acute Code(s): F43.10 - Post-traumatic stress disorder, unspecified Plan Patient is a 68-year-old female with history of schizophrenia and PTSD who self presented to ER due to poor sleep secondary to medication noncompliance. Plan: CV 15 minute safety checks Obtain collateral Continue home medications Referral to outpatient psychiatric providers Referral for [facility]NA for assistance in medication compliance Encourage groups Discharge planning Patient educated on: diagnosis and medication risk/benefits Reason for continued inpatient stay Substantial Risk for: med/psych decompensation Statement Statement: I have reviewed the history and physical and performed a pertinent examination on my patient. No changes have occurred unless specified. If the History and Physical was not performed prior to admission, the Hospitalist's service will be consulted for completing the admission physical. Time Spent With Patient Time: Total time managing care of this patient today _60___ minutes.
[2024-07-05 13:01] LABS: Alanine Aminotransferase 15 U/L (0-31); Albumin Level 4.2 g/dL (3.5-5.0); Alkaline Phosphatase 50 U/L (39-117); Anion Gap 13 (12-20); Aspartate Amino Transferase 18 U/L (5-31); Bilirubin Total 0.3 mg/dL (0.0-1.0); Blood Urea Nitrogen 23 mg/dL (9-16); Calcium 10.2 mg/dL (8.4-10.2); Carbon Dioxide 28 mmol/L (22-29); Chloride 112 mmol/L (96-108); Creatinine Clr Calc Pharmacy 40.2; Estimated Glomerular Filt Rate 53; Glucose Random 83 mg/dL (60-115); Potassium 3.9 mmol/L (3.3-5.1); Sodium 149 mmol/L (135-145); Total Protein 7.1 g/dL (6.5-8.0)
--- NOTE | 2024-07-05 14:56 | PC.ADMIT ---
Patient was admitted at 1154 from the POD on a CV for treatment of Unspecified Schizophrenia and Post Traumatic Stress Disorder Unspecified. According to the Care team keegan, patient self presented to the ED yesterday with reports of having poor sleep, and something wrong with her eyes , along with being noncompliant with her medications. Patient is known to our behavioral health team, with her most recent admission on 03/15/23 to with depression and self inflicted lacerations. Upon assessment, patient appears visibly anxious/restless, as she is unable to sit still during the admission assessment and continuously placing her hands on her face or covering her ears. When asked if pt was feeling anxious she stated Yeah because you're asking me questions , she denies SI/HI/AVH but when asked if she was feeling depressed, pt paused for a period of time before changing the subject and stating I just need to lay down . She reports her appetite has been poor and that she hasn't been sleeping at night which she correlates to the pain in her eyes, though she denies any current pain when asked. Patient also admits not being compliant with her medications I don't remember the last time I took meds, it's been over a month . Tox screen negative, skin check completed with another nurse (scattered scabs/scratches noted to patients back, which she reports she picks at). Patient placed on 15 minute checks for safety.
--- NOTE | 2024-07-05 15:35 | PHA.MEDREC ---
Pharmacy Consult ? Medication Reconciliation Pharmacy has reviewed the medication reconciliation done by nursing.
[2024-07-05 20:35] VITALS: BP 136/84; PULSE 63; RESP 16; TEMP 36.9; O2SAT 98
[2024-07-05] MEDS: Mirtazapine 7.5 MG TABLET PO (20:42)
[2024-07-05] MEDS: Metoprolol Tartrate 25 MG TABLET PO (20:43)
[2024-07-05] MEDS: traZODone HCL 50 MG TABLET PO (20:43)
[2024-07-05] MEDS: risperiDONE 2 MG TABLET PO (20:43)
[2024-07-05] MEDS: cephALEXin 500 MG CAPSULE PO (20:43)
[2024-07-05] MEDS: Benztropine Mesylate 0.5 MG TABLET PO (20:44)
[2024-07-05] MEDS: QUEtiapine Fumarate 50 MG TABLET PO (20:44)
[2024-07-06 07:30] VITALS: BP 124/61; PULSE 69; RESP 14; TEMP 36.8; O2SAT 100
[2024-07-06] MEDS: Atorvastatin Calcium 10 MG TABLET PO (08:33)
[2024-07-06 08:34] VITALS: BP 124/72; PULSE 68
[2024-07-06] MEDS: Benztropine Mesylate 0.5 MG TABLET PO ×2 (08:34→21:25)
[2024-07-06] MEDS: Metoprolol Tartrate 25 MG TABLET PO ×2 (08:34→21:24)
[2024-07-06] MEDS: Carbidopa/Levodopa 25/100 TABLET 1 TAB PO ×2 (08:34→12:32)
[2024-07-06] MEDS: Fenofibrate 160 MG TABLET PO (08:36)
[2024-07-06] MEDS: cephALEXin 500 MG CAPSULE PO ×3 (08:37→21:25)
[2024-07-06 08:45] LABS: Estimated Average Glucose 97 mg/dL; Hemoglobin A1C 108.7183 umol/L; Total Hemoglobin (HGBA1C) 3550.8688 umol/L
[2024-07-06] MEDS: risperiDONE 1 MG TABLET PO (08:45)
[2024-07-06 08:58] LABS: Cholesterol 162 mg/dL (<200); HDL Cholesterol 45 mg/dL (>40); LDL Cholesterol Calculated 99 mg/dL (<100); Triglycerides 90 mg/dL (<150)
--- NOTE | 2024-07-06 14:17 | HO.PSYCHPN ---
Subjective Subjective Date of Service: 07/06/24 Reason For Visit: Crisis Interim History: c/o poor sleep. appears joe. agreeable to increase remeron to 15 with repeat PRN. appears suspicious and tentative. per staff, has been off meds for a while. UTI. Mental Status Exam Mental Status Exam Narrative: Pt is alert and oriented; behavior is cooperative and calm; dressed in casual attire, disheveled; mood is described as anxious ; eye contact appropriate; Speech is normal rate, volume and not pressured; thought blocking at times, focused on restarting medications and sleep; denies SI/HI/VH/AH. Diagnostics Vital Signs (24Hr): Vital Signs - 24 hr 07/05/24 20:35 07/06/24 07:30 07/06/24 08:34 Temperature 98.4 F 98.2 F Pulse Rate 63 69 68 Respiratory Rate 16 14 Blood Pressure 136/84 124/61 124/72 Pulse Oximetry 98 100 Oxygen Delivery Method Room Air Room Air BMI result Body Mass Index 18.5 Labs 07/04/24 08:24 07/05/24 12:35 Labs: Laboratory Results - last 48 hr 07/05/24 07/06/24 12:35 08:21 Sodium 149 H Potassium 3.9 Chloride 112 H Carbon Dioxide 28 Anion Gap 13 BUN 23 H Creatinine 1.03 Estim Creat Clear Calc 40.2 Estimated GFR 53 Random Glucose 83 Estimat Average Glucose 97 Hemoglobin A1c % 5.0 Calcium 10.2 D Total Bilirubin 0.3 AST 18 ALT 15 Alkaline Phosphatase 50 Total Protein 7.1 Albumin 4.2 Triglycerides 90 Cholesterol 162 LDL Cholesterol, Calc 99 HDL Cholesterol 45 Medications Medications Current Medications Acetaminophen (Acetaminophen 325 Mg Tablet) 650 mg PO Q6H PRN PRN Reason: Headache/Pain, Scale 1-10 Al Hydroxide/Mg Hydroxide (Magnesium Hydrox/Alum Hydrox 30 Ml Oral.Susp) 30 ml PO Q6H PRN PRN Reason: Heartburn/Nausea Atorvastatin Calcium (Atorvastatin Calcium 10 Mg Tablet) 10 mg PO DAILY [facility] Last Admin: 07/06/24 08:33 Dose: 10 mg Benztropine Mesylate (Benztropine Mesylate 0.5 Mg Tablet) 0.5 mg PO BID [facility] Last Admin: 07/06/24 08:34 Dose: 0.5 mg Carbidopa/Levodopa (Carbidopa/Levodopa 25/100 Tablet) 1 tab PO BID@0800,1200 [facility] Last Admin: 07/06/24 12:32 Dose: 1 tab Cephalexin HCl (Cephalexin 500 Mg Capsule) 500 mg PO TID [facility] Stop: 07/08/24 22:00 Last Admin: 07/06/24 08:37 Dose: 500 mg Fenofibrate (Fenofibrate 160 Mg Tablet) 160 mg PO DAILY [facility] Last Admin: 07/06/24 08:36 Dose: 160 mg Magnesium Hydroxide (Milk Of Magnesia 30 Ml Oral.Susp) 30 ml PO DAILY PRN PRN Reason: Constipation Metoprolol Tartrate (Metoprolol Tartrate 25 Mg Tablet) 25 mg PO BID [facility]; Protocol Last Admin: 07/06/24 08:34 Dose: 25 mg Mirtazapine (Mirtazapine 15 Mg Tablet) 15 mg PO BEDTIME SHAQ Mirtazapine (Mirtazapine 15 Mg Tablet) 15 mg PO BEDTIME PRN PRN Reason: insomnia Nicotine Polacrilex (Nicotine Polacrilex 2 Mg Gum) 4 mg BUCCAL Q2H PRN PRN Reason: Nicotine Cravings Quetiapine Fumarate (Quetiapine Fumarate 50 Mg Tablet) 50 mg PO BEDTIME [facility] Last Admin: 07/05/24 20:44 Dose: 50 mg Risperidone (Risperidone 1 Mg Tablet) 1 mg PO DAILY [facility] Last Admin: 07/06/24 08:45 Dose: 1 mg Risperidone (Risperidone 2 Mg Tablet) 2 mg PO BEDTIME [facility] Last Admin: 07/05/24 20:43 Dose: 2 mg Allergies Allergies Allergy/AdvReac Type Severity Reaction Status Date / Time No Known Allergies Allergy Verified 07/04/24 06:29 Assessment & Plan Assessment & Plan (1) Schizophrenia: Qualifiers: Schizophrenia type: undifferentiated schizophrenia Qualified Code(s): F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 07/05: restart home medications. Referral to outpatient psychiatric providers. Referral for VNA for assistance in medication compliance. Encourage groups. Discharge planning. 07/06: appears suspicious, disheveled, joe. c/o poor sleep, agrees to increase remeron to 15 QHS with repeat PRN. otherwise continue current mgmt. Reason for continued inpatient stay Substantial Risk for: harm to self and inability to function Time Spent With Patient Time: Total time managing care of this patient today __25__ minutes.
[2024-07-06 15:08] LABS: Anion Gap 13 (12-20); Blood Urea Nitrogen 24 mg/dL (9-16); Calcium 9.8 mg/dL (8.4-10.2); Carbon Dioxide 26 mmol/L (22-29); Chloride 111 mmol/L (96-108); Creatinine Clr Calc Pharmacy 53.1; Estimated Glomerular Filt Rate > 60; Glucose Random 86 mg/dL (60-115); Potassium 4.5 mmol/L (3.3-5.1); Sodium 145 mmol/L (135-145)
[2024-07-06 20:28] VITALS: BP 109/55; PULSE 61; RESP 16; TEMP 36.7; O2SAT 98
[2024-07-06] MEDS: QUEtiapine Fumarate 50 MG TABLET PO (21:24)
[2024-07-06] MEDS: risperiDONE 2 MG TABLET PO (21:25)
[2024-07-06] MEDS: Mirtazapine 15 MG TABLET PO (21:25)
[2024-07-07 07:15] VITALS: BP 121/58; PULSE 55; RESP 12; TEMP 36.5; O2SAT 100
[2024-07-07] MEDS: cephALEXin 500 MG CAPSULE PO ×3 (08:52→22:08)
[2024-07-07] MEDS: Fenofibrate 160 MG TABLET PO (08:53)
[2024-07-07] MEDS: Atorvastatin Calcium 10 MG TABLET PO (08:53)
[2024-07-07] MEDS: Carbidopa/Levodopa 25/100 TABLET 1 TAB PO ×2 (08:53→13:33)
[2024-07-07] MEDS: risperiDONE 1 MG TABLET PO (08:55)
[2024-07-07] MEDS: Benztropine Mesylate 0.5 MG TABLET PO ×2 (08:55→22:08)
--- NOTE | 2024-07-07 17:55 | HO.PSYCHPN ---
Subjective Subjective Date of Service: 07/07/24 Reason For Visit: Crisis Interim History: c/o insomnia. per staff, attending groups. isolative. suspicious. reportedly slept more than 10 hours. eating. denies pain. taking meds. Mental Status Exam Mental Status Exam Narrative: Pt is alert and oriented; behavior is cooperative and calm; dressed in casual attire, disheveled; mood is described as anxious ; eye contact appropriate; Speech is normal rate, volume and not pressured; thought blocking at times, focused on restarting medications and sleep; denies SI/HI/VH/AH. Diagnostics Vital Signs (24Hr): Vital Signs - 24 hr 07/06/24 20:28 07/07/24 07:15 Temperature 98.0 F 97.7 F Pulse Rate 61 55 Respiratory Rate 16 12 Blood Pressure 109/55 L 121/58 L Pulse Oximetry 98 100 Oxygen Delivery Method Room Air Room Air BMI result Body Mass Index 18.5 Labs 07/04/24 08:24 07/06/24 14:47 Labs: Laboratory Results - last 48 hr 07/06/24 07/06/24 08:21 14:47 Sodium 145 Potassium 4.5 Chloride 111 H Carbon Dioxide 26 Anion Gap 13 BUN 24 H Creatinine 0.78 Estim Creat Clear Calc 53.1 Estimated GFR > 60 Random Glucose 86 Estimat Average Glucose 97 Hemoglobin A1c % 5.0 Calcium 9.8 Triglycerides 90 Cholesterol 162 LDL Cholesterol, Calc 99 HDL Cholesterol 45 Medications Medications Current Medications Acetaminophen (Acetaminophen 325 Mg Tablet) 650 mg PO Q6H PRN PRN Reason: Headache/Pain, Scale 1-10 Al Hydroxide/Mg Hydroxide (Magnesium Hydrox/Alum Hydrox 30 Ml Oral.Susp) 30 ml PO Q6H PRN PRN Reason: Heartburn/Nausea Atorvastatin Calcium (Atorvastatin Calcium 10 Mg Tablet) 10 mg PO DAILY [facility] Last Admin: 07/07/24 08:53 Dose: 10 mg Benztropine Mesylate (Benztropine Mesylate 0.5 Mg Tablet) 0.5 mg PO BID [facility] Last Admin: 07/07/24 08:55 Dose: 0.5 mg Carbidopa/Levodopa (Carbidopa/Levodopa 25/100 Tablet) 1 tab PO BID@0800,1200 [facility] [place] Last Admin: 07/07/24 13:33 Dose: 1 tab Cephalexin HCl (Cephalexin 500 Mg Capsule) 500 mg PO TID [facility] Stop: 07/08/24 22:00 Last Admin: 07/07/24 15:33 Dose: 500 mg Fenofibrate (Fenofibrate 160 Mg Tablet) 160 mg PO DAILY [facility] [place] Last Admin: 07/07/24 08:53 Dose: 160 mg Magnesium Hydroxide (Milk Of Magnesia 30 Ml Oral.Susp) 30 ml PO DAILY PRN PRN Reason: Constipation Metoprolol Tartrate (Metoprolol Tartrate 25 Mg Tablet) 25 mg PO BID [facility] [place]; Protocol Last Admin: 07/07/24 08:55 Dose: Not Given Mirtazapine (Mirtazapine 15 Mg Tablet) 15 mg PO BEDTIME [facility] Last Admin: 07/06/24 21:25 Dose: 15 mg Mirtazapine (Mirtazapine 15 Mg Tablet) 15 mg PO BEDTIME PRN PRN Reason: insomnia Nicotine Polacrilex (Nicotine Polacrilex 2 Mg Gum) 4 mg BUCCAL Q2H PRN PRN Reason: Nicotine Cravings Quetiapine Fumarate (Quetiapine Fumarate 50 Mg Tablet) 50 mg PO BEDTIME [facility] [place] Last Admin: 07/06/24 21:24 Dose: 50 mg Quetiapine Fumarate (Quetiapine Fumarate 25 Mg Tablet) 25 mg PO Q4H PRN PRN Reason: paranoia/agitation Risperidone (Risperidone 1 Mg Tablet) 1 mg PO DAILY [facility] [place] Last Admin: 07/07/24 08:55 Dose: 1 mg Risperidone (Risperidone 2 Mg Tablet) 2 mg PO BEDTIME [facility] [place] Last Admin: 07/06/24 21:25 Dose: 2 mg Allergies Allergies Allergy/AdvReac Type Severity Reaction Status Date / Time No Known Allergies Allergy Verified 07/04/24 06:29 Assessment & Plan Assessment & Plan (1) Schizophrenia: Qualifiers: Schizophrenia type: undifferentiated schizophrenia Qualified Code(s): F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 07/05: restart home medications. Referral to outpatient psychiatric providers. Referral for VNA for assistance in medication compliance. Encourage groups. Discharge planning. 07/06: appears suspicious, disheveled, joe. c/o poor sleep, agrees to increase remeron to 15 QHS with repeat PRN. otherwise continue current mgmt. 07/07: c/o insomnia. increase seroquel from 50 mg QHS to 150 mg QHS. seroquel 25 mg PRNs added for agitation/paranoia. otherwise continue current mgmt. Reason for continued inpatient stay Substantial Risk for: inability to function Time Spent With Patient Time: Total time managing care of this patient today ____ minutes.
[2024-07-07 19:00] VITALS: BP 109/72; PULSE 93; RESP 16; TEMP 36.6; O2SAT 99
[2024-07-07 22:08] VITALS: BP 114/59; PULSE 76
[2024-07-07] MEDS: Metoprolol Tartrate 25 MG TABLET PO (22:08)
[2024-07-07] MEDS: Mirtazapine 15 MG TABLET PO ×2 (22:09→22:10)
[2024-07-07] MEDS: QUEtiapine Fumarate 50 MG TABLET 150 MG PO (22:09)
[2024-07-07] MEDS: risperiDONE 2 MG TABLET PO (22:10)
[2024-07-08 07:46] VITALS: BP 115/60; PULSE 67; RESP 16; TEMP 36.2; O2SAT 99
[2024-07-08] MEDS: Fenofibrate 160 MG TABLET PO (09:11)
[2024-07-08] MEDS: Benztropine Mesylate 0.5 MG TABLET PO ×2 (09:11→20:10)
[2024-07-08] MEDS: cephALEXin 500 MG CAPSULE PO ×3 (09:11→20:10)
[2024-07-08] MEDS: Carbidopa/Levodopa 25/100 TABLET 1 TAB PO ×2 (09:12→12:23)
[2024-07-08] MEDS: Atorvastatin Calcium 10 MG TABLET PO (09:12)
[2024-07-08] MEDS: risperiDONE 1 MG TABLET PO (09:12)
[2024-07-08 09:13] VITALS: BP 118/62; PULSE 63
[2024-07-08] MEDS: Metoprolol Tartrate 25 MG TABLET PO ×2 (09:13→20:09)
[2024-07-08 19:25] VITALS: BP 129/64; PULSE 75; RESP 16; TEMP 36.2; O2SAT 98
[2024-07-08] MEDS: Mirtazapine 7.5 MG TABLET PO (20:09)
[2024-07-08] MEDS: QUEtiapine Fumarate 25 MG TABLET PO (20:09)
[2024-07-08] MEDS: QUEtiapine Fumarate 50 MG TABLET 150 MG PO (20:09)
[2024-07-08] MEDS: risperiDONE 2 MG TABLET PO (20:09)
--- NOTE | 2024-07-08 21:23 | P.PNPSI_ITS ---
Subjective Subjective Date of Service: 07/08/24 Reason For Visit: Crisis Interim History: reports she slept better last night. mood all right. c/o VH last couple fo days - was not having them before. states she saw a sims's face jump out of TV, the retract. concerned it is a medication effect, agrees to decrease remeron back to 7.5 mg. per staff, up at 0300 looking for exits. difficult to redirect. paranoid days. declined PRN seroquel. Mental Status Exam Mental Status Exam Narrative: Pt is alert and oriented; behavior is cooperative and calm; dressed in casual attire, disheveled; mood is described as all right; eye contact appropriate; Speech is normal rate, volume and not pressured; focused on restarting medications and sleep; denies SI/HI/VH/AH. Diagnostics Vital Signs (24Hr): Vital Signs - 24 hr 07/07/24 22:08 07/08/24 07:46 07/08/24 09:13 Temperature 97.2 F Pulse Rate 76 67 63 Respiratory Rate 16 Blood Pressure 114/59 L 115/60 118/62 Pulse Oximetry 99 Oxygen Delivery Method Room Air 07/08/24 19:25 Temperature 97.1 F Pulse Rate 75 Respiratory Rate 16 Blood Pressure 129/64 Pulse Oximetry 98 Oxygen Delivery Method Room Air BMI result Body Mass Index 18.5 Labs 07/04/24 08:24 07/06/24 14:47 Medications Medications Current Medications Acetaminophen (Acetaminophen 325 Mg Tablet) 650 mg PO Q6H PRN PRN Reason: Headache/Pain, Scale 1-10 Al Hydroxide/Mg Hydroxide (Magnesium Hydrox/Alum Hydrox 30 Ml Oral.Susp) 30 ml PO Q6H PRN PRN Reason: Heartburn/Nausea Atorvastatin Calcium (Atorvastatin Calcium 10 Mg Tablet) 10 mg PO DAILY [facility] Last Admin: 07/08/24 09:12 Dose: 10 mg Benztropine Mesylate (Benztropine Mesylate 0.5 Mg Tablet) 0.5 mg PO BID [facility] Last Admin: 07/08/24 20:10 Dose: 0.5 mg Carbidopa/Levodopa (Carbidopa/Levodopa 25/100 Tablet) 1 tab PO BID@0800,1200 [facility] Last Admin: 07/08/24 12:23 Dose: 1 tab Cephalexin HCl (Cephalexin 500 Mg Capsule) 500 mg PO TID [facility] Stop: 07/08/24 22:00 Last Admin: 07/08/24 20:10 Dose: 500 mg Fenofibrate (Fenofibrate 160 Mg Tablet) 160 mg PO DAILY [facility] Last Admin: 07/08/24 09:11 Dose: 160 mg Magnesium Hydroxide (Milk Of Magnesia 30 Ml Oral.Susp) 30 ml PO DAILY PRN PRN Reason: Constipation Metoprolol Tartrate (Metoprolol Tartrate 25 Mg Tablet) 25 mg PO BID [facility]; Protocol Last Admin: 07/08/24 20:09 Dose: 25 mg Mirtazapine (Mirtazapine 7.5 Mg Tablet) 7.5 mg PO BEDTIME [facility] Last Admin: 07/08/24 20:09 Dose: 7.5 mg Nicotine Polacrilex (Nicotine Polacrilex 2 Mg Gum) 4 mg BUCCAL Q2H PRN PRN Reason: Nicotine Cravings Quetiapine Fumarate (Quetiapine Fumarate 25 Mg Tablet) 25 mg PO Q4H PRN PRN Reason: paranoia/agitation Last Admin: 07/08/24 20:09 Dose: 25 mg Quetiapine Fumarate (Quetiapine Fumarate 50 Mg Tablet) 150 mg PO BEDTIME [facility] Last Admin: 07/08/24 20:09 Dose: 150 mg Risperidone (Risperidone 1 Mg Tablet) 1 mg PO DAILY [facility] Last Admin: 07/08/24 09:12 Dose: 1 mg Risperidone (Risperidone 2 Mg Tablet) 2 mg PO BEDTIME [facility] Last Admin: 07/08/24 20:09 Dose: 2 mg Allergies Allergies Allergy/AdvReac Type Severity Reaction Status Date / Time No Known Allergies Allergy Verified 07/04/24 06:29 Assessment & Plan Assessment & Plan (1) Schizophrenia: Qualifiers: Schizophrenia type: undifferentiated schizophrenia Qualified Code(s): F 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 07/05: restart home medications. Referral to outpatient psychiatric providers. Referral for VNA for assistance in medication compliance. Encourage groups. Discharge planning. 07/06: appears suspicious, disheveled, joe. c/o poor sleep, agrees to increase remeron to 15 QHS with repeat PRN. otherwise continue current mgmt. 07/07: c/o insomnia. increase seroquel from 50 mg QHS to 150 mg QHS. seroquel 25 mg PRNs added for agitation/paranoia. otherwise continue current mgmt. 07/08: slept better last night. c/o VH, which is new over the past couple of days, concerned it is a medication effect. MD agrees to decrease remeron back to 7.5 mg QHS. otherwise continue current mgmt. Reason for continued inpatient stay Substantial Risk for: inability to function and rapid decompensation Time Spent With Patient Time: Total time managing care of this patient today ____ minutes.
--- NOTE | 2024-07-09 01:18 | PC.NURSE ---
At approximately 2345, [facility] [place], Hyacinth reported that pt had an unwitnessed fall in room. He found pt sitting behind the closed bedroom door when he opened it to do checks. Upon RN arrival to room, pt was found sitting on her bed. Pt was assessed, VS were 107/58, HR 77, Sp02 was 99%, Temp - 98.5, RR - 16, ROM normal. Pt denies pain, denies head strike. Pt states that she struck her right outer leg, below hip area. States that she lost her balance . Pt reported she was not dizzy prior to the fall, stated she slipped . Pt is resting in bed at this time. Nursing Cafeteria Associate notified. Provider construction safety consultant notified and ordered 5 minute safety checks for the pt. Will continue to monitor her through the night.
[2024-07-09 01:19] VITALS: BP 107/58; PULSE 77; RESP 16; TEMP 36.9; O2SAT 99
--- NOTE | 2024-07-09 04:32 | PC.NURSE ---
At approximately 0415, [facility] working the floor reported that pt was sitting on roommates bed and roommate reported that she was massaging her feet. Pt then asked the MHC to pick something up off the floor and there was nothing on the floor.
[2024-07-09 08:53] VITALS: BP 112/67; PULSE 62; RESP 14; TEMP 36.6; O2SAT 99
[2024-07-09] MEDS: Metoprolol Tartrate 25 MG TABLET PO ×2 (08:56→21:10)
[2024-07-09] MEDS: risperiDONE 1 MG TABLET PO (08:56)
[2024-07-09] MEDS: Carbidopa/Levodopa 25/100 TABLET 1 TAB PO ×2 (08:56→12:13)
[2024-07-09] MEDS: Fenofibrate 160 MG TABLET PO (08:56)
[2024-07-09] MEDS: Atorvastatin Calcium 10 MG TABLET PO (08:57)
[2024-07-09] MEDS: Benztropine Mesylate 0.5 MG TABLET PO ×2 (08:57→21:10)
--- NOTE | 2024-07-09 09:48 | HO.PSYCHPN ---
Subjective Subjective Date of Service: 07/09/24 Reason For Visit: Crisis Subjective Notes: Conditional Voluntary Interim History: Keeping to self. In room most of shift. Patient reports feeling okay today; she reports falling last night d/t her socks being oversized. Observed responding to internal stimuli; pt stated, I thought someone was there but they weren't . denies SI/HI/AH. Ordered Bactrim 1tab Q12HR after receiving urine culture results. Encouraged to attend groups. Awaiting MOCA results. Medication Compliance: Yes Attending Groups: No Mental Status Exam Mental Status Exam Narrative: Pt is alert and oriented; behavior is cooperative and calm; dressed in casual attire, disheveled; mood is described as okay ; eye contact appropriate; Speech is normal rate, volume and not pressured; denies SI/HI/AH. Reports visual hallucinations at times. Diagnostics Vital Signs (24Hr): Vital Signs - 24 hr 07/08/24 19:25 07/09/24 01:19 07/09/24 08:53 Temperature 97.1 F 98.5 F 97.8 F Pulse Rate 75 77 62 Respiratory Rate 16 16 14 Blood Pressure 129/64 107/58 L 112/67 Pulse Oximetry 98 99 99 Oxygen Delivery Method Room Air Room Air BMI result Body Mass Index 18.5 Labs 07/04/24 08:24 07/06/24 14:47 Medications Medications Current Medications Acetaminophen (Acetaminophen 325 Mg Tablet) 650 mg PO Q6H PRN PRN Reason: Headache/Pain, Scale 1-10 Al Hydroxide/Mg Hydroxide (Magnesium Hydrox/Alum Hydrox 30 Ml Oral.Susp) 30 ml PO Q6H PRN PRN Reason: Heartburn/Nausea Atorvastatin Calcium (Atorvastatin Calcium 10 Mg Tablet) 10 mg PO DAILY [facility] Last Admin: 07/09/24 08:57 Dose: 10 mg Benztropine Mesylate (Benztropine Mesylate 0.5 Mg Tablet) 0.5 mg PO BID [facility] Last Admin: 07/09/24 08:57 Dose: 0.5 mg Carbidopa/Levodopa (Carbidopa/Levodopa 25/100 Tablet) 1 tab PO BID@0800,1200 [facility] Last Admin: 07/09/24 08:56 Dose: 1 tab Fenofibrate (Fenofibrate 160 Mg Tablet) 160 mg PO DAILY [facility] Last Admin: 07/09/24 08:56 Dose: 160 mg Magnesium Hydroxide (Milk Of Magnesia 30 Ml Oral.Susp) 30 ml PO DAILY PRN PRN Reason: Constipation Metoprolol Tartrate (Metoprolol Tartrate 25 Mg Tablet) 25 mg PO BID [facility]; Protocol Last Admin: 07/09/24 08:56 Dose: 25 mg Mirtazapine (Mirtazapine 7.5 Mg Tablet) 7.5 mg PO BEDTIME [facility] Last Admin: 07/08/24 20:09 Dose: 7.5 mg Nicotine Polacrilex (Nicotine Polacrilex 2 Mg Gum) 4 mg BUCCAL Q2H PRN PRN Reason: Nicotine Cravings Quetiapine Fumarate (Quetiapine Fumarate 25 Mg Tablet) 25 mg PO Q4H PRN PRN Reason: paranoia/agitation Last Admin: 07/08/24 20:09 Dose: 25 mg Quetiapine Fumarate (Quetiapine Fumarate 50 Mg Tablet) 150 mg PO BEDTIME [facility] Last Admin: 07/08/24 20:09 Dose: 150 mg Risperidone (Risperidone 1 Mg Tablet) 1 mg PO DAILY [facility] Last Admin: 07/09/24 08:56 Dose: 1 mg Risperidone (Risperidone 2 Mg Tablet) 2 mg PO BEDTIME [facility] Last Admin: 07/08/24 20:09 Dose: 2 mg Allergies Allergies Allergy/AdvReac Type Severity Reaction Status Date / Time No Known Allergies Allergy Verified 07/04/24 06:29 Assessment & Plan Assessment & Plan (1) Schizophrenia: Qualifiers: Schizophrenia type: undifferentiated schizophrenia Qualified Code(s): F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 07/05: restart home medications. Referral to outpatient psychiatric providers. Referral for VNA for assistance in medication compliance. Encourage groups. Discharge planning. 07/06: appears suspicious, disheveled, joe. c/o poor sleep, agrees to increase remeron to 15 QHS with repeat PRN. otherwise continue current mgmt. 07/07: c/o insomnia. increase seroquel from 50 mg QHS to 150 mg QHS. seroquel 25 mg PRNs added for agitation/paranoia. otherwise continue current mgmt. 07/08: slept better last night. c/o VH, which is new over the past couple of days, concerned it is a medication effect. MD agrees to decrease remeron back to 7.5 mg QHS. otherwise continue current mgmt. 07/09: Keeping to self. In room most of shift. Patient reports feeling okay today; she reports falling last night d/t her socks being oversized. Observed responding to internal stimuli; pt stated, I thought someone was there but they weren't . denies SI/HI/AH. Ordered Bactrim 1tab Q12HR after receiving urine culture results. Encouraged to attend groups. Awaiting MOCA results. Patient educated on: diagnosis, medication risk/benefits and therapeutic strategies Reason for continued inpatient stay Substantial Risk for: med/psych decompensation Time Spent With Patient Time: Total time managing care of this patient today _20___ minutes.
[2024-07-09 21:00] VITALS: BP 98/54; PULSE 76; RESP 16; TEMP 36.6; O2SAT 96
[2024-07-09] MEDS: Mirtazapine 7.5 MG TABLET PO (21:10)
[2024-07-09] MEDS: QUEtiapine Fumarate 50 MG TABLET 150 MG PO (21:10)
[2024-07-09] MEDS: Sulfamethox/Trimeth 800/160 TABLET 1 TAB PO (21:11)
[2024-07-09] MEDS: risperiDONE 2 MG TABLET PO (21:11)
[2024-07-10 07:43] VITALS: BP 111/67; PULSE 77; RESP 16; TEMP 36.8; O2SAT 99
[2024-07-10] MEDS: risperiDONE 1 MG TABLET PO (08:29)
[2024-07-10] MEDS: Benztropine Mesylate 0.5 MG TABLET PO ×2 (08:30→20:53)
[2024-07-10] MEDS: Sulfamethox/Trimeth 800/160 TABLET 1 TAB PO ×2 (08:30→20:53)
[2024-07-10] MEDS: Metoprolol Tartrate 25 MG TABLET PO ×2 (08:30→20:54)
[2024-07-10] MEDS: Fenofibrate 160 MG TABLET PO (08:30)
[2024-07-10] MEDS: Carbidopa/Levodopa 25/100 TABLET 1 TAB PO ×2 (08:30→11:58)
[2024-07-10] MEDS: Atorvastatin Calcium 10 MG TABLET PO (08:30)
--- NOTE | 2024-07-10 10:30 | PC.NURSE ---
Pt completed a MOCA assessment with writer editor. Pt scored 16 out 30 indicating a moderate cognitive impairment.
--- NOTE | 2024-07-10 15:09 | HO.PSYCHPN ---
Subjective Subjective Date of Service: 07/10/24 Reason For Visit: Crisis Interim History: calm, cooperative. paranoid delusions the police are coming for her. discuss urinary tract infection and failure of keflex and switch to different antibiotic. per staff, denies dep/anx. taking meds. pleasant. AVH of police in her window. confused NOC. alert to person only. sleeping only about 4 hours. keflex changed to bactrim due to antimicrobial resistance profile. Mental Status Exam Mental Status Exam Narrative: Pt is alert and oriented; behavior is cooperative and calm; dressed in casual attire, disheveled; mood is described as all right; eye contact appropriate; Speech is normal rate, volume and not pressured; focused on sleep; no SI/HI/VH/AH expressed. Diagnostics Vital Signs (24Hr): Vital Signs - 24 hr 07/09/24 21:00 07/10/24 07:43 Temperature 97.9 F 98.3 F Pulse Rate 76 77 Respiratory Rate 16 16 Blood Pressure 98/54 L 111/67 Pulse Oximetry 96 99 Oxygen Delivery Method Room Air Room Air BMI result Body Mass Index 18.5 Labs 07/04/24 08:24 07/06/24 14:47 Medications Medications Current Medications Acetaminophen (Acetaminophen 325 Mg Tablet) 650 mg PO Q6H PRN PRN Reason: Headache/Pain, Scale 1-10 Al Hydroxide/Mg Hydroxide (Magnesium Hydrox/Alum Hydrox 30 Ml Oral.Susp) 30 ml PO Q6H PRN PRN Reason: Heartburn/Nausea Atorvastatin Calcium (Atorvastatin Calcium 10 Mg Tablet) 10 mg PO DAILY [facility] Last Admin: 07/10/24 08:30 Dose: 10 mg Benztropine Mesylate (Benztropine Mesylate 0.5 Mg Tablet) 0.5 mg PO BID [facility] Last Admin: 07/10/24 08:30 Dose: 0.5 mg Carbidopa/Levodopa (Carbidopa/Levodopa 25/100 Tablet) 1 tab PO BID@0800,1200 [facility] Last Admin: 07/10/24 11:58 Dose: 1 tab Fenofibrate (Fenofibrate 160 Mg Tablet) 160 mg PO DAILY [facility] Last Admin: 07/10/24 08:30 Dose: 160 mg Magnesium Hydroxide (Milk Of Magnesia 30 Ml Oral.Susp) 30 ml PO DAILY PRN PRN Reason: Constipation Metoprolol Tartrate (Metoprolol Tartrate 25 Mg Tablet) 25 mg PO BID [facility]; Protocol Last Admin: 07/10/24 08:30 Dose: 25 mg Mirtazapine (Mirtazapine 7.5 Mg Tablet) 7.5 mg PO BEDTIME [facility] Last Admin: 07/09/24 21:10 Dose: 7.5 mg Nicotine Polacrilex (Nicotine Polacrilex 2 Mg Gum) 4 mg BUCCAL Q2H PRN PRN Reason: Nicotine Cravings Quetiapine Fumarate (Quetiapine Fumarate 25 Mg Tablet) 25 mg PO Q4H PRN PRN Reason: paranoia/agitation Last Admin: 07/08/24 20:09 Dose: 25 mg Quetiapine Fumarate (Quetiapine Fumarate 50 Mg Tablet) 150 mg PO BEDTIME [facility] Last Admin: 07/09/24 21:10 Dose: 150 mg Risperidone (Risperidone 1 Mg Tablet) 1 mg PO DAILY [facility] Last Admin: 07/10/24 08:29 Dose: 1 mg Risperidone (Risperidone 2 Mg Tablet) 2 mg PO BEDTIME [facility] Last Admin: 07/09/24 21:11 Dose: 2 mg Trimethoprim/Sulfamethoxazole (Sulfamethox/Trimeth 800/160 Tablet) 1 tab PO Q12H [facility] Last Admin: 07/10/24 08:30 Dose: 1 tab Allergies Allergies Allergy/AdvReac Type Severity Reaction Status Date / Time No Known Allergies Allergy Verified 07/04/24 06:29 Assessment & Plan Assessment & Plan (1) Schizophrenia: Qualifiers: Schizophrenia type: undifferentiated schizophrenia Qualified Code(s): F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 07/05: restart home medications. Referral to outpatient psychiatric providers. Referral for VNA for assistance in medication compliance. Encourage groups. Discharge planning. 07/06: appears suspicious, disheveled, joe. c/o poor sleep, agrees to increase remeron to 15 QHS with repeat PRN. otherwise continue current mgmt. 07/07: c/o insomnia. increase seroquel from 50 mg QHS to 150 mg QHS. seroquel 25 mg PRNs added for agitation/paranoia. otherwise continue current mgmt. 07/08: slept better last night. c/o VH, which is new over the past couple of days, concerned it is a medication effect. MD agrees to decrease remeron back to 7.5 mg QHS. otherwise continue current mgmt. 07/09: Keeping to self. In room most of shift. Patient reports feeling okay today; she reports falling last night d/t her socks being oversized. Observed responding to internal stimuli; pt stated, I thought someone was there but they weren't . denies SI/HI/AH. Ordered Bactrim 1tab Q12HR after receiving urine culture results. Encouraged to attend groups. Awaiting MOCA results. 07/10: UTI-related delirium recently. keflex changed to bactrim due to antimicrobial resistance profile. will monitor MS for improvement over the next several days. continue current regimen otherwise. Reason for continued inpatient stay Substantial Risk for: inability to function and rapid decompensation Time Spent With Patient Time: Total time managing care of this patient today __25__ minutes.
[2024-07-10 20:45] VITALS: BP 125/72; PULSE 85; RESP 16; TEMP 36.8; O2SAT 98
[2024-07-10] MEDS: QUEtiapine Fumarate 50 MG TABLET 150 MG PO (20:54)
[2024-07-10] MEDS: risperiDONE 2 MG TABLET PO (20:54)
[2024-07-10] MEDS: Mirtazapine 7.5 MG TABLET PO (20:55)
[2024-07-11 07:52] VITALS: BP 139/65; PULSE 82; RESP 16; TEMP 36.4; O2SAT 97
[2024-07-11] MEDS: Metoprolol Tartrate 25 MG TABLET PO ×2 (08:25→21:04)
[2024-07-11] MEDS: Sulfamethox/Trimeth 800/160 TABLET 1 TAB PO ×2 (08:25→21:05)
[2024-07-11] MEDS: risperiDONE 1 MG TABLET PO (08:25)
[2024-07-11] MEDS: Fenofibrate 160 MG TABLET PO (08:25)
[2024-07-11] MEDS: Atorvastatin Calcium 10 MG TABLET PO (08:25)
[2024-07-11] MEDS: Carbidopa/Levodopa 25/100 TABLET 1 TAB PO ×2 (08:25→12:33)
[2024-07-11] MEDS: Benztropine Mesylate 0.5 MG TABLET PO ×2 (08:25→21:04)
--- NOTE | 2024-07-11 09:45 | HO.PSYCHPN ---
Subjective Subjective Date of Service: 07/11/24 Reason For Visit: Crisis Subjective Notes: Conditional Voluntary Interim History: Keeping to self. Patient reports feeling alright today; discussed how police were at her window last night. Pt stated, I think they got something on me . denies SI/HI. Per nursing, she did not sleep last night; however patient reports that she did. Per nursing, had unwitnessed fall this morning. Placed on 1:1 safety checks. Ordered hospitalist consult and head CT. Medication Compliance: Yes Mental Status Exam Mental Status Exam Narrative: Pt is alert and oriented; behavior is cooperative and calm; dressed in casual attire, disheveled; mood is described as okay; eye contact appropriate; Speech is normal rate, volume and not pressured; believes she saw police outside her window; no SI/HI/AH expressed. Diagnostics Vital Signs (24Hr): Vital Signs - 24 hr 07/10/24 20:45 07/11/24 07:52 Temperature 98.3 F 97.5 F Pulse Rate 85 82 Respiratory Rate 16 16 Blood Pressure 125/72 139/65 Pulse Oximetry 98 97 Oxygen Delivery Method Room Air Room Air BMI result Body Mass Index 18.5 Labs 07/04/24 08:24 07/06/24 14:47 Medications Medications Current Medications Acetaminophen (Acetaminophen 325 Mg Tablet) 650 mg PO Q6H PRN PRN Reason: Headache/Pain, Scale 1-10 Al Hydroxide/Mg Hydroxide (Magnesium Hydrox/Alum Hydrox 30 Ml Oral.Susp) 30 ml PO Q6H PRN PRN Reason: Heartburn/Nausea Atorvastatin Calcium (Atorvastatin Calcium 10 Mg Tablet) 10 mg PO DAILY [facility] Last Admin: 07/11/24 08:25 Dose: 10 mg Benztropine Mesylate (Benztropine Mesylate 0.5 Mg Tablet) 0.5 mg PO BID [facility] Last Admin: 07/11/24 08:25 Dose: 0.5 mg Carbidopa/Levodopa (Carbidopa/Levodopa 25/100 Tablet) 1 tab PO BID@0800,1200 [facility] Last Admin: 07/11/24 08:25 Dose: 1 tab Fenofibrate (Fenofibrate 160 Mg Tablet) 160 mg PO DAILY [facility] Last Admin: 07/11/24 08:25 Dose: 160 mg Magnesium Hydroxide (Milk Of Magnesia 30 Ml Oral.Susp) 30 ml PO DAILY PRN PRN Reason: Constipation Metoprolol Tartrate (Metoprolol Tartrate 25 Mg Tablet) 25 mg PO BID [facility]; Protocol Last Admin: 07/11/24 08:25 Dose: 25 mg Mirtazapine (Mirtazapine 7.5 Mg Tablet) 7.5 mg PO BEDTIME [facility] Last Admin: 07/10/24 20:55 Dose: 7.5 mg Nicotine Polacrilex (Nicotine Polacrilex 2 Mg Gum) 4 mg BUCCAL Q2H PRN PRN Reason: Nicotine Cravings Quetiapine Fumarate (Quetiapine Fumarate 25 Mg Tablet) 25 mg PO Q4H PRN PRN Reason: paranoia/agitation Last Admin: 07/08/24 20:09 Dose: 25 mg Quetiapine Fumarate (Quetiapine Fumarate 50 Mg Tablet) 150 mg PO BEDTIME [facility] Last Admin: 07/10/24 20:54 Dose: 150 mg Risperidone (Risperidone 1 Mg Tablet) 1 mg PO DAILY [facility] Last Admin: 07/11/24 08:25 Dose: 1 mg Risperidone (Risperidone 2 Mg Tablet) 2 mg PO BEDTIME [facility] Last Admin: 07/10/24 20:54 Dose: 2 mg Trimethoprim/Sulfamethoxazole (Sulfamethox/Trimeth 800/160 Tablet) 1 tab PO Q12H [facility] Last Admin: 07/11/24 08:25 Dose: 1 tab Allergies Allergies Allergy/AdvReac Type Severity Reaction Status Date / Time No Known Allergies Allergy Verified 07/04/24 06:29 Assessment & Plan Assessment & Plan (1) Schizophrenia: Qualifiers: Schizophrenia type: undifferentiated schizophrenia Qualified Code(s): F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 07/05: restart home medications. Referral to outpatient psychiatric providers. Referral for VNA for assistance in medication compliance. Encourage groups. Discharge planning. 07/06: appears suspicious, disheveled, joe. c/o poor sleep, agrees to increase remeron to 15 QHS with repeat PRN. otherwise continue current mgmt. 07/07: c/o insomnia. increase seroquel from 50 mg QHS to 150 mg QHS. seroquel 25 mg PRNs added for agitation/paranoia. otherwise continue current mgmt. 07/08: slept better last night. c/o VH, which is new over the past couple of days, concerned it is a medication effect. MD agrees to decrease remeron back to 7.5 mg QHS. otherwise continue current mgmt. 07/09: Keeping to self. In room most of shift. Patient reports feeling okay today; she reports falling last night d/t her socks being oversized. Observed responding to internal stimuli; pt stated, I thought someone was there but they weren't . denies SI/HI/AH. Ordered Bactrim 1tab Q12HR after receiving urine culture results. Encouraged to attend groups. Awaiting MOCA results. 07/10: UTI-related delirium recently. keflex changed to bactrim due to antimicrobial resistance profile. will monitor MS for improvement over the next several days. continue current regimen otherwise. 07/11: Keeping to self. Patient reports feeling alright today; discussed how police were at her window last night. Pt stated, I think they got something on me . denies SI/HI. Per nursing, she did not sleep last night; however patient reports that she did. Per nursing, had unwitnessed fall this morning. Placed on 1:1 safety checks. Ordered hospitalist consult and head CT. Patient educated on: diagnosis and medication risk/benefits Reason for continued inpatient stay Substantial Risk for: med/psych decompensation Time Spent With Patient Time: Total time managing care of this patient today ____ minutes.
--- NOTE | 2024-07-11 12:23 | PC.NURSE ---
Patient's roommate informed nursing staff at 1200 that Melia had fallen in her bathroom. Upon assessment, patient was noted to be sitting on the floor by the toilet with her shift off. She stated I was trying to use the bathroom but it doesn't have anything for me to grab onto and I just fell . Pt also reported her eladio top was off because she was changing. Vitals were taken/stable (BP 128/60 100% o2, 71 HR, R17), she reports falling onto her bottom but denies any pain and denies hitting her head. Patient has been changed from 5 minute checks to 1:1 for safety. Provider notified and orders for head CT and hospitalist consult were placed.
--- NOTE | 2024-07-11 12:45 | P.EN_ITS ---
Event Note Date of Service: 07/11/24 Event Note: Pt is a 68-year-old female with a PMH significant for HTN, HLD, parkinsonism, osteoporosis, PTSD, and schizophrenia admitted to [facility] with hospitalist consult for unwitnessed fall in bathroom. Pt was found sitting the floor of the bathroom any pedal on urine. Pt reports had been sitting on the toilet and was standing up to walk away when she fell on her buttocks and she had nothing to grab onto or steady herself. Denies head strike. Pt does co mplain of central lower back pain which is new since her fall. No headache or acute vision changes. Of note, this is patient's 2nd fall during admission; previously fell 2 nights prior. Pt apparently has been increasingly confused especially at night. Physical examination reveals diffuse central lumbar tenderness. No reduction to ROM of lower extremities. Preserved and symmetric strength to lower extremities. Upper extremities with intentional tremors and generalized weakness. Head atraumatic. Plan: CT of head ordered by Psychiatry Will check x-ray of lumbar spine and bilateral hips PT consult Pt will likely benefit from using a walker for ambulation while on the unit Time Spent With Patient Time: Total time managing care of this patient today ____ minutes.
[2024-07-11 14:07] VITALS: BP 139/65; PULSE 82; O2SAT 97
[2024-07-11] MEDS: Acetaminophen 325 MG TABLET 650 MG PO (15:34)
[2024-07-11 19:40] VITALS: BP 140/91; PULSE 84; RESP 18; TEMP 36.8; O2SAT 98
[2024-07-11 21:04] VITALS: BP 121/75; PULSE 68
[2024-07-11] MEDS: QUEtiapine Fumarate 50 MG TABLET 150 MG PO (21:04)
[2024-07-11] MEDS: risperiDONE 2 MG TABLET PO (21:04)
[2024-07-11] MEDS: Mirtazapine 7.5 MG TABLET PO (21:04)
[2024-07-12 08:00] VITALS: BP 113/82; PULSE 92; RESP 16; TEMP 36.8; O2SAT 98
[2024-07-12] MEDS: Carbidopa/Levodopa 25/100 TABLET 1 TAB PO ×2 (08:43→12:03)
[2024-07-12] MEDS: Sulfamethox/Trimeth 800/160 TABLET 1 TAB PO ×2 (08:44→21:04)
[2024-07-12] MEDS: Fenofibrate 160 MG TABLET PO (08:44)
[2024-07-12] MEDS: Metoprolol Tartrate 25 MG TABLET PO ×2 (08:44→21:04)
[2024-07-12] MEDS: Atorvastatin Calcium 10 MG TABLET PO (08:44)
[2024-07-12] MEDS: risperiDONE 1 MG TABLET PO (08:44)
[2024-07-12 13:00] VITALS: BMI 19.4
--- NOTE | 2024-07-12 15:11 | HO.PSYCHPN ---
Subjective Subjective Date of Service: 07/12/24 Reason For Visit: Crisis Interim History: picking at things in the air, explanation unintelligible. discussed UTI and expectation for her to fee less confused soon. per staff, changed to [place] for fall risk due to fall yesterday afternoon. c/o bulk filler at her window [address]/back/hip XR NEG. no delusional statements noted last night and slept well. Mental Status Exam Mental Status Exam Narrative: Pt is alert and oriented; behavior is cooperative and calm; dressed in casual attire, disheveled; mood is described as okay; eye contact appropriate; Speech is normal rate, volume and not pressured; no SI/HI/AVH expressed. Diagnostics Vital Signs (24Hr): Vital Signs - 24 hr 07/11/24 19:40 07/11/24 21:04 07/12/24 08:00 Temperature 98.2 F 98.3 F Pulse Rate 84 68 92 Respiratory Rate 18 16 Blood Pressure 140/91 H 121/75 113/82 Pulse Oximetry 98 98 Oxygen Delivery Method Room Air Room Air BMI result Body Mass Index 18.5 Labs 07/04/24 08:24 07/06/24 14:47 Imaging Radiology Impressions: ITS Impressions Hip X-Ray 07/11/24 13:00 IMPRESSION: 1. No acute bony abnormality of either hip joint. Electronically signed by: Felix Zavala MD 07/11/2024 01:41 PM EDT RP Lumbar Spine X-Ray 07/11/24 13:00 IMPRESSION: Multilevel thoracolumbar spondylosis with incomplete ankylosis L4-5 and L5-S1. Electronically signed by: Kamran Salinas MD 07/11/2024 01:38 PM EDT RP Medications Medications Current Medications Acetaminophen (Acetaminophen 325 Mg Tablet) 650 mg PO Q6H PRN PRN Reason: Headache/Pain, Scale 1-10 Last Admin: 07/11/24 15:34 Dose: 650 mg Al Hydroxide/Mg Hydroxide (Magnesium Hydrox/Alum Hydrox 30 Ml Oral.Susp) 30 ml PO Q6H PRN PRN Reason: Heartburn/Nausea Atorvastatin Calcium (Atorvastatin Calcium 10 Mg Tablet) 10 mg PO DAILY [facility] Last Admin: 07/12/24 08:44 Dose: 10 mg Benztropine Mesylate (Benztropine Mesylate 0.5 Mg Tablet) 0.5 mg PO BEDTIME [facility] Last Admin: 07/11/24 21:04 Dose: 0.5 mg Carbidopa/Levodopa (Carbidopa/Levodopa 25/100 Tablet) 1 tab PO BID@0800,1200 [facility] Last Admin: 07/12/24 12:03 Dose: 1 tab Fenofibrate (Fenofibrate 160 Mg Tablet) 160 mg PO DAILY [facility] Last Admin: 07/12/24 08:44 Dose: 160 mg Magnesium Hydroxide (Milk Of Magnesia 30 Ml Oral.Susp) 30 ml PO DAILY PRN PRN Reason: Constipation Metoprolol Tartrate (Metoprolol Tartrate 25 Mg Tablet) 25 mg PO BID [facility]; Protocol Last Admin: 07/12/24 08:44 Dose: 25 mg Mirtazapine (Mirtazapine 7.5 Mg Tablet) 7.5 mg PO BEDTIME [facility] Last Admin: 07/11/24 21:04 Dose: 7.5 mg Nicotine Polacrilex (Nicotine Polacrilex 2 Mg Gum) 4 mg BUCCAL Q2H PRN PRN Reason: Nicotine Cravings Quetiapine Fumarate (Quetiapine Fumarate 25 Mg Tablet) 25 mg PO Q4H PRN PRN Reason: paranoia/agitation Last Admin: 07/08/24 20:09 Dose: 25 mg Quetiapine Fumarate (Quetiapine Fumarate 50 Mg Tablet) 150 mg PO BEDTIME [facility] Last Admin: 07/11/24 21:04 Dose: 150 mg Risperidone (Risperidone 1 Mg Tablet) 1 mg PO DAILY [facility] Last Admin: 07/12/24 08:44 Dose: 1 mg Risperidone (Risperidone 2 Mg Tablet) 2 mg PO BEDTIME [facility] Last Admin: 07/11/24 21:04 Dose: 2 mg Trimethoprim/Sulfamethoxazole (Sulfamethox/Trimeth 800/160 Tablet) 1 tab PO Q12H [facility] Last Admin: 07/12/24 08:44 Dose: 1 tab Allergies Allergies Allergy/AdvReac Type Severity Reaction Status Date / Time No Known Allergies Allergy Verified 07/04/24 06:29 Assessment & Plan Assessment & Plan (1) Schizophrenia: Qualifiers: Schizophrenia type: undifferentiated schizophrenia Qualified Code(s): F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 07/05: restart home medications. Referral to outpatient psychiatric providers. Referral for [facility]NA for assistance in medication compliance. Encourage groups. Discharge planning. 07/06: appears suspicious, disheveled, joe. c/o poor sleep, agrees to increase remeron to 15 QHS with repeat PRN. otherwise continue current mgmt. 07/07: c/o insomnia. increase seroquel from 50 mg QHS to 150 mg QHS. seroquel 25 mg PRNs added for agitation/paranoia. otherwise continue current mgmt. 07/08: slept better last night. c/o VH, which is new over the past couple of days, concerned it is a medication effect. MD agrees to decrease remeron back to 7.5 mg QHS. otherwise continue current mgmt. 07/09: Keeping to self. In room most of shift. Patient reports feeling okay today; she reports falling last night d/t her socks being oversized. Observed responding to internal stimuli; pt stated, I thought someone was there but they weren't . denies SI/HI/AH. Ordered Bactrim 1tab Q12HR after receiving urine culture results. Encouraged to attend groups. Awaiting MOCA results. 07/10: UTI-related delirium recently. keflex changed to bactrim due to antimicrobial resistance profile. will monitor MS for improvement over the next several days. continue current regimen otherwise. 07/11: Keeping to self. Patient reports feeling alright today; discussed how police were at her window last night. Pt stated, I think they got something on me . denies SI/HI. Per nursing, she did not sleep last night; however patient reports that she did. Per nursing, had unwitnessed fall this morning. Placed on 1:1 safety checks. Ordered hospitalist consult and head CT. 07/12: head CT and hip/back Xrays NEG. slept better last night and no delusional statements. continues to appear to have perhaps VH this morning, MS not clear. continue current mgmt for now. expectantly waiting for bactrim to resolve UTI and from there resolution of delirium. Reason for continued inpatient stay Substantial Risk for: inability to function Time Spent With Patient Time: Total time managing care of this patient today __25__ minutes.
[2024-07-12 20:45] VITALS: BP 151/81; PULSE 82; RESP 16; TEMP 36.9; O2SAT 98
[2024-07-12] MEDS: Benztropine Mesylate 0.5 MG TABLET PO (21:04)
[2024-07-12] MEDS: QUEtiapine Fumarate 50 MG TABLET 150 MG PO (21:04)
[2024-07-12] MEDS: risperiDONE 2 MG TABLET PO (21:04)
[2024-07-12] MEDS: Mirtazapine 7.5 MG TABLET PO (21:04)
[2024-07-12] MEDS: Acetaminophen 325 MG TABLET 650 MG PO (21:12)
[2024-07-13 05:43] VITALS: BP 101/63; PULSE 75; RESP 18; TEMP 36.7; O2SAT 95
[2024-07-13 06:01] VITALS: BP 101/63; PULSE 75; RESP 18; TEMP 36.7; O2SAT 95
[2024-07-13 07:41] VITALS: BP 138/72; PULSE 70; RESP 12; TEMP 36.4; O2SAT 97
[2024-07-13] MEDS: Metoprolol Tartrate 25 MG TABLET PO ×2 (08:24→20:20)
[2024-07-13] MEDS: risperiDONE 1 MG TABLET PO (08:24)
[2024-07-13] MEDS: Atorvastatin Calcium 10 MG TABLET PO (08:25)
[2024-07-13] MEDS: Sulfamethox/Trimeth 800/160 TABLET 1 TAB PO ×2 (08:25→20:20)
[2024-07-13] MEDS: Carbidopa/Levodopa 25/100 TABLET 1 TAB PO ×2 (08:25→12:24)
[2024-07-13] MEDS: Fenofibrate 160 MG TABLET PO (08:26)
[2024-07-13] MEDS: Acetaminophen 325 MG TABLET 650 MG PO ×2 (08:47→15:27)
--- NOTE | 2024-07-13 09:19 | P.PNPSI_ITS ---
Subjective Subjective Date of Service: 07/13/24 Reason For Visit: Crisis Subjective Notes: Conditional Voluntary Interim History: Keeping to self. Patient reports feeling okay this morning; did not appear to be responding to internal stimuli. Patient did mention police being at her window last night. She denies SI/HI/VH/AH. denies UTI symptoms. Per nursing, slept 7 hours last night. encouraged to get out of bed; observed pacing unit hallway with walker; continues on 1:1 safety checks. Per nursing, pt had another fall this morning around 0500 in bathroom. Medication Compliance: Yes Side effects from medications: No Attending Groups: No Mental Status Exam Mental Status Exam Narrative: Pt is alert and oriented x3; behavior is cooperative and calm; dressed in casual attire, disheveled; mood is described as okay; eye contact appropriate; Speech is normal rate, volume and not pressured; believes she saw police outside her window; no SI/HI/AH expressed. Diagnostics Vital Signs (24Hr): Vital Signs - 24 hr 07/12/24 20:45 07/13/24 05:43 07/13/24 06:01 Temperature 98.4 F 98.0 F 98.0 F Pulse Rate 82 75 75 Respiratory Rate 16 18 18 Blood Pressure 151/81 H 101/63 101/63 Pulse Oximetry 98 95 95 Oxygen Delivery Method Room Air Room Air 07/13/24 07:41 Temperature 97.5 F Pulse Rate 70 Respiratory Rate 12 Blood Pressure 138/72 Pulse Oximetry 97 Oxygen Delivery Method Room Air BMI result Body Mass Index 19.4 Labs 07/04/24 08:24 07/06/24 14:47 Imaging Radiology Impressions: ITS Impressions Hip X-Ray 07/11/24 13:00 IMPRESSION: 1. No acute bony abnormality of either hip joint. Electronically signed by: Felix Zavala MD 07/11/2024 01:41 PM EDT RP Lumbar Spine X-Ray 07/11/24 13:00 IMPRESSION: Multilevel thoracolumbar spondylosis with incomplete ankylosis L4-5 and L5-S1. Electronically signed by: Kamran Salinas MD 07/11/2024 01:38 PM EDT RP Medications Medications Current Medications Acetaminophen (Acetaminophen 325 Mg Tablet) 650 mg PO Q6H PRN PRN Reason: Headache/Pain, Scale 1-10 Last Admin: 07/13/24 08:47 Dose: 650 mg Al Hydroxide/Mg Hydroxide (Magnesium Hydrox/Alum Hydrox 30 Ml Oral.Susp) 30 ml PO Q6H PRN PRN Reason: Heartburn/Nausea Atorvastatin Calcium (Atorvastatin Calcium 10 Mg Tablet) 10 mg PO DAILY [facility] Last Admin: 07/13/24 08:25 Dose: 10 mg Benztropine Mesylate (Benztropine Mesylate 0.5 Mg Tablet) 0.5 mg PO BEDTIME [facility] Last Admin: 07/12/24 21:04 Dose: 0.5 mg Carbidopa/Levodopa (Carbidopa/Levodopa 25/100 Tablet) 1 tab PO BID@0800,1200 [facility] Last Admin: 07/13/24 08:25 Dose: 1 tab Fenofibrate (Fenofibrate 160 Mg Tablet) 160 mg PO DAILY [facility] Last Admin: 07/13/24 08:26 Dose: 160 mg Magnesium Hydroxide (Milk Of Magnesia 30 Ml Oral.Susp) 30 ml PO DAILY PRN PRN Reason: Constipation Metoprolol Tartrate (Metoprolol Tartrate 25 Mg Tablet) 25 mg PO BID [facility]; Protocol Last Admin: 07/13/24 08:24 Dose: 25 mg Mirtazapine (Mirtazapine 7.5 Mg Tablet) 7.5 mg PO BEDTIME [facility] Last Admin: 07/12/24 21:04 Dose: 7.5 mg Nicotine Polacrilex (Nicotine Polacrilex 2 Mg Gum) 4 mg BUCCAL Q2H PRN PRN Reason: Nicotine Cravings Quetiapine Fumarate (Quetiapine Fumarate 25 Mg Tablet) 25 mg PO Q4H PRN PRN Reason: paranoia/agitation Last Admin: 07/08/24 20:09 Dose: 25 mg Quetiapine Fumarate (Quetiapine Fumarate 50 Mg Tablet) 150 mg PO BEDTIME [facility] Last Admin: 07/12/24 21:04 Dose: 150 mg Risperidone (Risperidone 1 Mg Tablet) 1 mg PO DAILY [facility] Last Admin: 07/13/24 08:24 Dose: 1 mg Risperidone (Risperidone 2 Mg Tablet) 2 mg PO BEDTIME [facility] Last Admin: 07/12/24 21:04 Dose: 2 mg Trimethoprim/Sulfamethoxazole (Sulfamethox/Trimeth 800/160 Tablet) 1 tab PO Q12H [facility] Last Admin: 07/13/24 08:25 Dose: 1 tab Allergies Allergies Allergy/AdvReac Type Severity Reaction Status Date / Time No Known Allergies Allergy Verified 07/04/24 06:29 Assessment & Plan Assessment & Plan (1) Schizophrenia: Qualifiers: Schizophrenia type: undifferentiated schizophrenia Qualified Code(s): F 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 07/05: restart home medications. Referral to outpatient psychiatric providers. Referral for VNA for assistance in medication compliance. Encourage groups. Discharge planning. 07/06: appears suspicious, disheveled, joe. c/o poor sleep, agrees to increase remeron to 15 QHS with repeat PRN. otherwise continue current mgmt. 07/07: c/o insomnia. increase seroquel from 50 mg QHS to 150 mg QHS. seroquel 25 mg PRNs added for agitation/paranoia. otherwise continue current mgmt. 07/08: slept better last night. c/o VH, which is new over the past couple of days, concerned it is a medication effect. MD agrees to decrease remeron back to 7.5 mg QHS. otherwise continue current mgmt. 07/09: Keeping to self. In room most of shift. Patient reports feeling okay today; she reports falling last night d/t her socks being oversized. Observed responding to internal stimuli; pt stated, I thought someone was there but they weren't . denies SI/HI/AH. Ordered Bactrim 1tab Q12HR after receiving urine culture results. Encouraged to attend groups. Awaiting MOCA results. 07/10: UTI-related delirium recently. keflex changed to bactrim due to antimicrobial resistance profile. will monitor MS for improvement over the next several days. continue current regimen otherwise. 07/11: Keeping to self. Patient reports feeling alright today; discussed how police were at her window last night. Pt stated, I think they got something on me . denies SI/HI. Per nursing, she did not sleep last night; however patient reports that she did. Per nursing, had unwitnessed fall this morning. Placed on 1:1 safety checks. Ordered hospitalist consult and head CT. 07/12: head CT and hip/back Xrays NEG. slept better last night and no delusional statements. continues to appear to have perhaps VH this morning, MS not clear. continue current mgmt for now. expectantly waiting for bactrim to resolve UTI and from there resolution of delirium. 07/13: Patient reports feeling okay this morning; did not appear to be responding to internal stimuli. Patient did mention police being at her window last night. She denies SI/HI/VH/AH. denies UTI symptoms; continues on antibiotic. Per nursing, slept 7 hours last night. encouraged to get out of bed; observed pacing unit hallway with walker; continues on 1:1 safety checks. Per nursing, pt had another fall this morning around 0500 in bathroom. Continue current tx plan. Patient educated on: medication risk/benefits and therapeutic strategies Reason for continued inpatient stay Substantial Risk for: med/psych decompensation Time Spent With Patient Time: Total time managing care of this patient today _20___ minutes.
[2024-07-13 10:59] VITALS: BP 138/72; PULSE 70; O2SAT 97
[2024-07-13 20:00] VITALS: BP 119/72; PULSE 106; RESP 16; TEMP 37.3; O2SAT 94
[2024-07-13] MEDS: Benztropine Mesylate 0.5 MG TABLET PO (20:20)
[2024-07-13] MEDS: Mirtazapine 7.5 MG TABLET PO (20:21)
[2024-07-13] MEDS: risperiDONE 2 MG TABLET PO (20:21)
[2024-07-13] MEDS: QUEtiapine Fumarate 50 MG TABLET 150 MG PO (20:22)
[2024-07-14 08:00] VITALS: BP 160/96; PULSE 83; RESP 16; TEMP 38.4; O2SAT 95
[2024-07-14 09:03] VITALS: BP 138/72; PULSE 81
[2024-07-14] MEDS: Metoprolol Tartrate 25 MG TABLET PO ×2 (09:03→20:24)
[2024-07-14] MEDS: Fenofibrate 160 MG TABLET PO (09:03)
[2024-07-14] MEDS: Atorvastatin Calcium 10 MG TABLET PO (09:04)
[2024-07-14] MEDS: risperiDONE 1 MG TABLET PO (09:04)
[2024-07-14] MEDS: Sulfamethox/Trimeth 800/160 TABLET 1 TAB PO ×2 (09:04→20:24)
[2024-07-14] MEDS: Carbidopa/Levodopa 25/100 TABLET 1 TAB PO ×2 (09:04→12:20)
--- NOTE | 2024-07-14 10:46 | P.PNPSI_ITS ---
Subjective Subjective Date of Service: 07/14/24 Reason For Visit: Crisis Subjective Notes: Conditional Voluntary Interim History: Pt slept 4hrs. She reports feeling well. She is mostly in her room. poor hygiene and malodorous. She reports she has not taken a shower. When offered, she declined. She denies suicidal or homicidal ideation. She denies having fear of someone going after her but one to one staff reports she continues to look at the window thinking someone may be out there. She presents with poverty of thought. She tells this technical document writer she is here because of falls. She does report she has been dx with schizophrenia for more than 20 years. Parkinsonian s/s noted, some rigidity and unsteady gait. She is currently on risperidone, worried about increase in med as it may worsen parkinsonism, also wondering how much sinemet may be affecting psychosis. Review of Systems Reports system reviewed and no additional complaints, except as documented Cardiovascular: Reports no additional cardiovascular complaints Psychiatric: Reports as per HPI and Reports abnormal sleep pattern Mental Status Exam Mental Status Exam Narrative: Pt is alert and oriented x3, not so much to situation; behavior is cooperative and calm; dressed in casual attire, disheveled; mood is described as okay; eye contact appropriate; Speech is normal rate, volume and not pressured; believes she saw police outside her window; no SI/HI/AH expressed. Appear internally preoccupied Diagnostics Vital Signs (24Hr): Vital Signs - 24 hr 07/13/24 10:59 07/13/24 20:00 07/14/24 09:03 Temperature 99.1 F Pulse Rate 70 106 H 81 Respiratory Rate 16 Blood Pressure 138/72 119/72 138/72 Pulse Oximetry 97 94 Oxygen Delivery Method Room Air BMI result Body Mass Index 19.4 Labs 07/04/24 08:24 07/15/24 15:28 Imaging Radiology Impressions: ITS Impressions Hip X-Ray 07/11/24 13:00 IMPRESSION: 1. No acute bony abnormality of either hip joint. Electronically signed by: Felix Zavala MD 07/11/2024 01:41 PM EDT Lumbar Spine X-Ray 07/11/24 13:00 IMPRESSION: Multilevel thoracolumbar spondylosis with incomplete ankylosis L4-5 and L5-S1. Electronically signed by: Kamran Salinas MD 07/11/2024 01:38 PM EDT Medications Medications Current Medications Acetaminophen (Acetaminophen 325 Mg Tablet) 650 mg PO Q6H PRN PRN Reason: Headache/Pain, Scale 1-10 Last Admin: 07/13/24 15:27 Dose: 650 mg Al Hydroxide/Mg Hydroxide (Magnesium Hydrox/Alum Hydrox 30 Ml Oral.Susp) 30 ml PO Q6H PRN PRN Reason: Heartburn/Nausea Atorvastatin Calcium (Atorvastatin Calcium 10 Mg Tablet) 10 mg PO DAILY [facility] Last Admin: 07/14/24 09:04 Dose: 10 mg Benztropine Mesylate (Benztropine Mesylate 0.5 Mg Tablet) 0.5 mg PO BEDTIME [facility] Last Admin: 07/13/24 20:20 Dose: 0.5 mg Carbidopa/Levodopa (Carbidopa/Levodopa 25/100 Tablet) 1 tab PO BID@0800,1200 [facility] Last Admin: 07/14/24 09:04 Dose: 1 tab Fenofibrate (Fenofibrate 160 Mg Tablet) 160 mg PO DAILY [facility] Last Admin: 07/14/24 09:03 Dose: 160 mg Ibuprofen (Ibuprofen 600 Mg Tablet) 600 mg PO Q8H PRN PRN Reason: Pain, Moderate(Pain Scale 4-6) Magnesium Hydroxide (Milk Of Magnesia 30 Ml Oral.Susp) 30 ml PO DAILY PRN PRN Reason: Constipation Metoprolol Tartrate (Metoprolol Tartrate 25 Mg Tablet) 25 mg PO BID [facility]; Protocol Last Admin: 07/14/24 09:03 Dose: 25 mg Mirtazapine (Mirtazapine 7.5 Mg Tablet) 7.5 mg PO BEDTIME [facility] Last Admin: 07/13/24 20:21 Dose: 7.5 mg Nicotine Polacrilex (Nicotine Polacrilex 2 Mg Gum) 4 mg BUCCAL Q2H PRN PRN Reason: Nicotine Cravings Quetiapine Fumarate (Quetiapine Fumarate 25 Mg Tablet) 25 mg PO Q4H PRN PRN Reason: paranoia/agitation Last Admin: 07/08/24 20:09 Dose: 25 mg Quetiapine Fumarate (Quetiapine Fumarate 50 Mg Tablet) 150 mg PO BEDTIME [facility] Last Admin: 07/13/24 20:22 Dose: 150 mg Risperidone (Risperidone 1 Mg Tablet) 1 mg PO DAILY [facility] Last Admin: 07/14/24 09:04 Dose: 1 mg Risperidone (Risperidone 2 Mg Tablet) 2 mg PO BEDTIME [facility] Last Admin: 07/13/24 20:21 Dose: 2 mg Trimethoprim/Sulfamethoxazole (Sulfamethox/Trimeth 800/160 Tablet) 1 tab PO Q12H [facility] Last Admin: 07/14/24 09:04 Dose: 1 tab Allergies Allergies Allergy/AdvReac Type Severity Reaction Status Date / Time No Known Allergies Allergy Verified 07/04/24 06:29 Assessment & Plan Assessment & Plan (1) Schizophrenia: Qualifiers: Schizophrenia type: undifferentiated schizophrenia Qualified Code(s): F 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 07/05: restart home medications. Referral to outpatient psychiatric providers. Referral for [facility]NA for assistance in medication compliance. Encourage groups. Discharge planning. 07/06: appears suspicious, disheveled, joe. c/o poor sleep, agrees to increase remeron to 15 QHS with repeat PRN. otherwise continue current mgmt. 07/07: c/o insomnia. increase seroquel from 50 mg QHS to 150 mg QHS. seroquel 25 mg PRNs added for agitation/paranoia. otherwise continue current mgmt. 07/08: slept better last night. c/o VH, which is new over the past couple of days, concerned it is a medication effect. MD agrees to decrease remeron back to 7.5 mg QHS. otherwise continue current mgmt. 07/09: Keeping to self. In room most of shift. Patient reports feeling okay today; she reports falling last night d/t her socks being oversized. Observed responding to internal stimuli; pt stated, I thought someone was there but they weren't . denies SI/HI/AH. Ordered Bactrim 1tab Q12HR after receiving urine culture results. Encouraged to attend groups. Awaiting MOCA results. 07/10: UTI-related delirium recently. keflex changed to bactrim due to antimicrobial resistance profile. will monitor MS for improvement over the next several days. continue current regimen otherwise. 07/11: Keeping to self. Patient reports feeling alright today; discussed how police were at her window last night. Pt stated, I think they got something on me . denies SI/HI. Per nursing, she did not sleep last night; however patient reports that she did. Per nursing, had unwitnessed fall this morning. Placed on 1:1 safety checks. Ordered hospitalist consult and head CT. 07/12: head CT and hip/back Xrays NEG. slept better last night and no delusional statements. continues to appear to have perhaps VH this morning, MS not clear. continue current mgmt for now. expectantly waiting for bactrim to resolve UTI and from there resolution of delirium. 07/13: Patient reports feeling okay this morning; did not appear to be responding to internal stimuli. Patient did mention police being at her window last night. She denies SI/HI/VH/AH. denies UTI symptoms; continues on antibiotic. Per nursing, slept 7 hours last night. encouraged to get out of bed; observed pacing unit hallway with walker; continues on 1:1 safety checks. Per nursing, pt had another fall this morning around 0500 in bathroom. Continue current tx plan. 07/14 poverty of thought, still internally preoccupied but may not be fully forthcoming. Parkinsonian s/s noted, some rigidity and unsteady gait. She is currently on risperidone, worried about increase in risperidone as it may worsen parkinsonism, also wondering how much sinemet may be affecting psychosis. She does not appear delirious, seems significant negative symptoms related to schizophrenia. Reason for continued inpatient stay Substantial Risk for: inability to function Time Spent With Patient Time: Total time managing care of this patient today ____ minutes.
[2024-07-14] MEDS: Acetaminophen 325 MG TABLET 650 MG PO (12:26)
[2024-07-14] MEDS: Ibuprofen 600 MG TABLET PO (17:33)
[2024-07-14 20:15] VITALS: BP 110/58; PULSE 78; RESP 18; TEMP 36.9; O2SAT 97
[2024-07-14] MEDS: Mirtazapine 7.5 MG TABLET PO (20:25)
[2024-07-14] MEDS: Benztropine Mesylate 0.5 MG TABLET PO (20:25)
[2024-07-14] MEDS: risperiDONE 2 MG TABLET PO (20:26)
[2024-07-14] MEDS: QUEtiapine Fumarate 50 MG TABLET 150 MG PO (20:26)
[2024-07-15 07:45] VITALS: BP 135/84; PULSE 85; RESP 12; TEMP 36.9; O2SAT 97
[2024-07-15 09:27] VITALS: BP 135/84; PULSE 85
[2024-07-15] MEDS: Metoprolol Tartrate 25 MG TABLET PO ×2 (09:27→22:11)
[2024-07-15] MEDS: Atorvastatin Calcium 10 MG TABLET PO (09:28)
[2024-07-15] MEDS: risperiDONE 1 MG TABLET PO (09:28)
[2024-07-15] MEDS: Fenofibrate 160 MG TABLET PO (09:28)
[2024-07-15] MEDS: Sulfamethox/Trimeth 800/160 TABLET 1 TAB PO ×2 (09:29→22:11)
[2024-07-15] MEDS: Carbidopa/Levodopa 25/100 TABLET 1 TAB PO ×2 (09:29→12:57)
[2024-07-15 09:32] VITALS: BP 140/67; PULSE 90
[2024-07-15 16:11] LABS: Alanine Aminotransferase < 6 U/L (0-31); Albumin Level 3.7 g/dL (3.5-5.0); Anion Gap 14 (12-20); Aspartate Amino Transferase 39 U/L (5-31); Bilirubin Total 0.3 mg/dL (0.0-1.0); Blood Urea Nitrogen 27 mg/dL (9-16); Calcium 9.8 mg/dL (8.4-10.2); Carbon Dioxide 23 mmol/L (22-29); Chloride 105 mmol/L (96-108); Creatinine Clr Calc Pharmacy 42.7; Estimated Glomerular Filt Rate 54; Glucose Random 107 mg/dL (60-115); Potassium 4.4 mmol/L (3.3-5.1); Sodium 138 mmol/L (135-145); Total Protein 6.7 g/dL (6.5-8.0)
[2024-07-15 16:32] LABS: Alkaline Phosphatase 49 U/L (39-117)
[2024-07-15] MEDS: LORazepam 0.5 MG TABLET PO (17:03)
[2024-07-15] MEDS: Bacitracin Oint 0.9 GM PACKET 1 APPL TOPICAL (17:04)
[2024-07-15 20:00] VITALS: BP 125/74; PULSE 97; RESP 18; TEMP 37.1; O2SAT 97
[2024-07-15 22:11] VITALS: BP 119/64; PULSE 92
[2024-07-15] MEDS: traZODone HCL 50 MG TABLET PO (22:11)
[2024-07-15] MEDS: risperiDONE 2 MG TABLET PO (22:11)
[2024-07-15] MEDS: Melatonin 3 MG TABLET 6 MG PO (22:11)
--- NOTE | 2024-07-15 22:30 | P.PNPSI_ITS ---
Subjective Subjective Date of Service: 07/15/24 Reason For Visit: Crisis Subjective Notes: Conditional Voluntary Interim History: Very poor sleep reported by nursing but pt would denied this. She reports feeling well. She is mostly in her room. She did take a shower. She denies suicidal or homicidal ideation. She denies having fear of someone going after her but one to one staff reports she continues to look at the window thinking someone may be out there. She presents with poverty of thought. She tells this commercial real estate underwriter she is here because of falls. She does report she has been dx with schizophrenia for more than 20 years. Parkinsonian s/s noted, some rigidity and unsteady gait. She is currently on risperidone, worried about increase in med as it may worsen parkinsonism, also wondering how much sinemet may be affecting psychosis. Review of Systems Reports system reviewed and no additional complaints, except as documented Cardiovascular: Reports no additional cardiovascular complaints Psychiatric: Reports as per HPI and Reports abnormal sleep pattern Mental Status Exam Mental Status Exam Narrative: Pt is alert and oriented x3, not so much to situation; behavior is cooperative and calm; dressed in casual attire, disheveled; mood is described as okay; eye contact appropriate; Speech is normal rate, volume and not pressured; believes she saw police outside her window; no SI/HI/AH expressed. Appear internally preoccupied Diagnostics Vital Signs (24Hr): Vital Signs - 24 hr 07/15/24 07:45 07/15/24 09:27 07/15/24 09:32 Temperature 98.4 F Pulse Rate 85 85 90 Respiratory Rate 12 Blood Pressure 135/84 135/84 140/67 H Pulse Oximetry 97 Oxygen Delivery Method Room Air 07/15/24 22:11 Temperature Pulse Rate 92 Respiratory Rate Blood Pressure 119/64 Pulse Oximetry Oxygen Delivery Method BMI result Body Mass Index 19.4 Labs 07/04/24 08:24 07/15/24 15:28 Labs: Laboratory Results - last 48 hr 07/15/24 15:28 Sodium 138 Potassium 4.4 Chloride 105 Carbon Dioxide 23 Anion Gap 14 BUN 27 H Creatinine 1.02 Estim Creat Clear Calc 42.7 Estimated GFR 54 Random Glucose 107 Calcium 9.8 Total Bilirubin 0.3 AST 39 H ALT < 6 Alkaline Phosphatase 49 Total Protein 6.7 Albumin 3.7 Imaging Radiology Impressions: ITS Impressions Hip X-Ray 07/11/24 13:00 IMPRESSION: 1. No acute bony abnormality of either hip joint. Electronically signed by: Felix Zavala MD 07/11/2024 01:41 PM EDT RP Lumbar Spine X-Ray 07/11/24 13:00 IMPRESSION: Multilevel thoracolumbar spondylosis with incomplete ankylosis L4-5 and L5-S1. Electronically signed by: Kamran Salinas MD 07/11/2024 01:38 PM EDT RP Medications Medications Current Medications Acetaminophen (Acetaminophen 325 Mg Tablet) 650 mg PO Q6H PRN PRN Reason: Headache/Pain, Scale 1-10 Last Admin: 07/14/24 12:26 Dose: 650 mg Al Hydroxide/Mg Hydroxide (Magnesium Hydrox/Alum Hydrox 30 Ml Oral.Susp) 30 ml PO Q6H PRN PRN Reason: Heartburn/Nausea Atorvastatin Calcium (Atorvastatin Calcium 10 Mg Tablet) 10 mg PO DAILY [facility] Last Admin: 07/15/24 09:28 Dose: 10 mg Benztropine Mesylate (Benztropine Mesylate 0.5 Mg Tablet) 0.5 mg PO DAILY [facility] Carbidopa/Levodopa (Carbidopa/Levodopa 25/100 Tablet) 1 tab PO BID@0800,1200 [facility] Last Admin: 07/15/24 12:57 Dose: 1 tab Fenofibrate (Fenofibrate 160 Mg Tablet) 160 mg PO DAILY [facility] Last Admin: 07/15/24 09:28 Dose: 160 mg Magnesium Hydroxide (Milk Of Magnesia 30 Ml Oral.Susp) 30 ml PO DAILY PRN PRN Reason: Constipation Melatonin (Melatonin 3 Mg Tablet) 6 mg PO BEDTIME [facility] Last Admin: 07/15/24 22:11 Dose: 6 mg Metoprolol Tartrate (Metoprolol Tartrate 25 Mg Tablet) 25 mg PO BID [facility]; Protocol Last Admin: 07/15/24 22:11 Dose: 25 mg Nicotine Polacrilex (Nicotine Polacrilex 2 Mg Gum) 4 mg BUCCAL Q2H PRN PRN Reason: Nicotine Cravings Risperidone (Risperidone 1 Mg Tablet) 1 mg PO DAILY [facility] Last Admin: 07/15/24 09:28 Dose: 1 mg Risperidone (Risperidone 2 Mg Tablet) 2 mg PO BEDTIME [facility] Last Admin: 07/15/24 22:11 Dose: 2 mg Trazodone HCl (Trazodone Hcl 50 Mg Tablet) 50 mg PO BEDTIME [facility] Last Admin: 07/15/24 22:11 Dose: 50 mg Trimethoprim/Sulfamethoxazole (Sulfamethox/Trimeth 800/160 Tablet) 1 tab PO Q12H [facility] Last Admin: 07/15/24 22:11 Dose: 1 tab Allergies Allergies Allergy/AdvReac Type Severity Reaction Status Date / Time No Known Allergies Allergy Verified 07/04/24 06:29 Assessment & Plan Assessment & Plan (1) Schizophrenia: Qualifiers: Schizophrenia type: undifferentiated schizophrenia Qualified Code(s): F 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 07/05: restart home medications. Referral to outpatient psychiatric providers. Referral for [facility]NA for assistance in medication compliance. Encourage groups. Discharge planning. 07/06: appears suspicious, disheveled, joe. c/o poor sleep, agrees to increase remeron to 15 QHS with repeat PRN. otherwise continue current mgmt. 07/07: c/o insomnia. increase seroquel from 50 mg QHS to 150 mg QHS. seroquel 25 mg PRNs added for agitation/paranoia. otherwise continue current mgmt. 07/08: slept better last night. c/o VH, which is new over the past couple of days, concerned it is a medication effect. MD agrees to decrease remeron back to 7.5 mg QHS. otherwise continue current mgmt. 07/09: Keeping to self. In room most of shift. Patient reports feeling okay today; she reports falling last night d/t her socks being oversized. Observed responding to internal stimuli; pt stated, I thought someone was there but they weren't . denies SI/HI/AH. Ordered Bactrim 1tab Q12HR after receiving urine culture results. Encouraged to attend groups. Awaiting MOCA results. 07/10: UTI-related delirium recently. keflex changed to bactrim due to antimicrobial resistance profile. will monitor MS for improvement over the next several days. continue current regimen otherwise. 07/11: Keeping to self. Patient reports feeling alright today; discussed how police were at her window last night. Pt stated, I think they got something on me . denies SI/HI. Per nursing, she did not sleep last night; however patient reports that she did. Per nursing, had unwitnessed fall this morning. Placed on 1:1 safety checks. Ordered hospitalist consult and head CT. 07/12: head CT and hip/back Xrays NEG. slept better last night and no delusional statements. continues to appear to have perhaps VH this morning, MS not clear. continue current mgmt for now. expectantly waiting for bactrim to resolve UTI and from there resolution of delirium. 07/13: Patient reports feeling okay this morning; did not appear to be responding to internal stimuli. Patient did mention police being at her window last night. She denies SI/HI/VH/AH. denies UTI symptoms; continues on antibiotic. Per nursing, slept 7 hours last night. encouraged to get out of bed; observed pacing unit hallway with walker; continues on 1:1 safety checks. Per nursing, pt had another fall this morning around 0500 in bathroom. Continue current tx plan. 07/14 poverty of thought, still internally preoccupied but may not be fully forthcoming. Parkinsonian s/s noted, some rigidity and unsteady gait. She is currently on risperidone, worried about increase in risperidone as it may worsen parkinsonism, also wondering how much sinemet may be affecting psychosis. She does not appear delirious, seems significant negative symptoms related to schizophrenia. 07/15 will try to lower sinemet to once a day, monitor. continue other meds. Schedule trazodone for sleep 50mg po qhs. Reason for continued inpatient stay Substantial Risk for: inability to function Time Spent With Patient Time: Total time managing care of this patient today ____ minutes.
[2024-07-16] MEDS: LORazepam 1 MG TABLET PO (00:56)
[2024-07-16 07:35] VITALS: BP 145/84; PULSE 86; RESP 14; TEMP 37.1; O2SAT 95
[2024-07-16] MEDS: Fenofibrate 160 MG TABLET PO (15:45)
[2024-07-16] MEDS: risperiDONE 1 MG TABLET PO (15:46)
[2024-07-16] MEDS: Sulfamethox/Trimeth 800/160 TABLET 1 TAB PO (15:46)
[2024-07-16] MEDS: Atorvastatin Calcium 10 MG TABLET PO (15:46)
[2024-07-16 15:47] VITALS: BP 129/58; PULSE 105
[2024-07-16] MEDS: Carbidopa/Levodopa 25/100 TABLET 1 TAB PO (15:47)
[2024-07-16] MEDS: Metoprolol Tartrate 25 MG TABLET PO (15:47)
--- NOTE | 2024-07-16 16:14 | PC.NURSE ---
Patient awake at 1450. Oriented, engaging. Denies depression or sadness, denies A/V hallucinations. Ambulated with 1 assist to bathroom, voided. Ate lunch, drank fluids. Demi Morales APRN authorized administration of morning medications. All scheduled medications administered without difficulty.
[2024-07-16 19:48] VITALS: BP 101/51; PULSE 87; RESP 16; TEMP 36.8; O2SAT 95
--- NOTE | 2024-07-16 20:35 | P.PNPSI_ITS ---
Subjective Subjective Date of Service: 07/16/24 Reason For Visit: Crisis Subjective Notes: Conditional Voluntary Interim History: Pt had difficulty sleeping last night, somewhat agitated. She was given one time dose of ativan 1mg at midnight. She slept most of the day up until 3pm, when she received all other medications. When this science writer attempted to see her she was fast asleep, seemed more therapeutic at the time to let her rest. Review of Systems Reports system reviewed and no additional complaints, except as documented Cardiovascular: Reports no additional cardiovascular complaints Psychiatric: Reports as per HPI and Reports abnormal sleep pattern Mental Status Exam Mental Status Exam Narrative: Pt is alert and oriented x3, not so much to situation; behavior is cooperative and calm; dressed in casual attire, disheveled; mood is described as okay; eye contact appropriate; Speech is normal rate, volume and not pressured; believes she saw police outside her window; no SI/HI/AH expressed. Appear internally preoccupied Diagnostics Vital Signs (24Hr): Vital Signs - 24 hr 07/15/24 22:11 07/16/24 07:35 07/16/24 15:47 Temperature 98.7 F Pulse Rate 92 86 105 H Respiratory Rate 14 Blood Pressure 119/64 145/84 H 129/58 L Pulse Oximetry 95 Oxygen Delivery Method Room Air BMI result Body Mass Index 19.4 Labs 07/04/24 08:24 07/15/24 15:28 Labs: Laboratory Results - last 48 hr 07/15/24 15:28 Sodium 138 Potassium 4.4 Chloride 105 Carbon Dioxide 23 Anion Gap 14 BUN 27 H Creatinine 1.02 Estim Creat Clear Calc 42.7 Estimated GFR 54 Random Glucose 107 Calcium 9.8 Total Bilirubin 0.3 AST 39 H ALT < 6 Alkaline Phosphatase 49 Total Protein 6.7 Albumin 3.7 Imaging Radiology Impressions: ITS Impressions Hip X-Ray 07/11/24 13:00 IMPRESSION: 1. No acute bony abnormality of either hip joint. Electronically signed by: Felix Zavala MD 07/11/2024 01:41 PM EDT RP Lumbar Spine X-Ray 07/11/24 13:00 IMPRESSION: Multilevel thoracolumbar spondylosis with incomplete ankylosis L4-5 and L5-S1. Electronically signed by: Kamran Salinas MD 07/11/2024 01:38 PM EDT RP Medications Medications Current Medications Acetaminophen (Acetaminophen 325 Mg Tablet) 650 mg PO Q6H PRN PRN Reason: Headache/Pain, Scale 1-10 Last Admin: 07/14/24 12:26 Dose: 650 mg Al Hydroxide/Mg Hydroxide (Magnesium Hydrox/Alum Hydrox 30 Ml Oral.Susp) 30 ml PO Q6H PRN PRN Reason: Heartburn/Nausea Atorvastatin Calcium (Atorvastatin Calcium 10 Mg Tablet) 10 mg PO DAILY [facility]S [facility] 234 BEDS AT [facility] Last Admin: 07/16/24 15:46 Dose: 10 mg Benztropine Mesylate (Benztropine Mesylate 0.5 Mg Tablet) 0.5 mg PO BEDTIME COUNTS INCLUDE 234 BEDS AT THE [facility] Carbidopa/Levodopa (Carbidopa/Levodopa 25/100 Tablet) 1 tab PO DAILY COUNTS INCLUDE 234 BEDS AT THE [facility] Last Admin: 07/16/24 15:47 Dose: 1 tab Fenofibrate (Fenofibrate 160 Mg Tablet) 160 mg PO DAILY COUNTS INCLUDE 234 BEDS AT THE [facility] Last Admin: 07/16/24 15:45 Dose: 160 mg Magnesium Hydroxide (Milk Of Magnesia 30 Ml Oral.Susp) 30 ml PO DAILY PRN PRN Reason: Constipation Melatonin (Melatonin 3 Mg Tablet) 6 mg PO BEDTIME COUNTS INCLUDE 234 BEDS AT THE [facility] Last Admin: 07/15/24 22:11 Dose: 6 mg Metoprolol Tartrate (Metoprolol Tartrate 25 Mg Tablet) 25 mg PO BID COUNTS INCLUDE 234 BEDS AT THE [facility]; Protocol Last Admin: 07/16/24 15:47 Dose: 25 mg Nicotine Polacrilex (Nicotine Polacrilex 2 Mg Gum) 4 mg BUCCAL Q2H PRN PRN Reason: Nicotine Cravings Risperidone (Risperidone 1 Mg Tablet) 1 mg PO DAILY COUNTS INCLUDE 234 BEDS AT THE [facility] Last Admin: 07/16/24 15:46 Dose: 1 mg Risperidone (Risperidone 2 Mg Tablet) 2 mg PO BEDTIME COUNTS INCLUDE 234 BEDS AT THE [facility] Last Admin: 07/15/24 22:11 Dose: 2 mg Trazodone HCl (Trazodone Hcl 25 Mg Halftab) 75 mg PO BEDTIME COUNTS INCLUDE 234 BEDS AT THE [facility] Trimethoprim/Sulfamethoxazole (Sulfamethox/Trimeth 800/160 Tablet) 1 tab PO Q12H COUNTS INCLUDE 234 BEDS AT THE [facility] Last Admin: 07/16/24 15:52 Dose: Not Given Allergies Allergies Allergy/AdvReac Type Severity Reaction Status Date / Time No Known Allergies Allergy Verified 07/04/24 06:29 Assessment & Plan Assessment & Plan (1) Schizophrenia: Qualifiers: Schizophrenia type: undifferentiated schizophrenia Qualified Code(s): F 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 07/05: restart home medications. Referral to outpatient psychiatric providers. Referral for VNA for assistance in medication compliance. Encourage groups. Discharge planning. 07/06: appears suspicious, disheveled, joe. c/o poor sleep, agrees to increase remeron to 15 QHS with repeat PRN. otherwise continue current mgmt. 07/07: c/o insomnia. increase seroquel from 50 mg QHS to 150 mg QHS. seroquel 25 mg PRNs added for agitation/paranoia. otherwise continue current mgmt. 07/08: slept better last night. c/o VH, which is new over the past couple of days, concerned it is a medication effect. MD agrees to decrease remeron back to 7.5 mg QHS. otherwise continue current mgmt. 07/09: Keeping to self. In room most of shift. Patient reports feeling okay today; she reports falling last night d/t her socks being oversized. Observed responding to internal stimuli; pt stated, I thought someone was there but they weren't . denies SI/HI/AH. Ordered Bactrim 1tab Q12HR after receiving urine culture results. Encouraged to attend groups. Awaiting MOCA results. 07/10: UTI-related delirium recently. keflex changed to bactrim due to antimicrobial resistance profile. will monitor MS for improvement over the next several days. continue current regimen otherwise. 07/11: Keeping to self. Patient reports feeling alright today; discussed how police were at her window last night. Pt stated, I think they got something on me . denies SI/HI. Per nursing, she did not sleep last night; however patient reports that she did. Per nursing, had unwitnessed fall this morning. Placed on 1:1 safety checks. Ordered hospitalist consult and head CT. 07/12: head CT and hip/back Xrays NEG. slept better last night and no delusional statements. continues to appear to have perhaps VH this morning, MS not clear. continue current mgmt for now. expectantly waiting for bactrim to resolve UTI and from there resolution of delirium. 07/13: Patient reports feeling okay this morning; did not appear to be responding to internal stimuli. Patient did mention police being at her window last night. She denies SI/HI/VH/AH. denies UTI symptoms; continues on antibiotic. Per nursing, slept 7 hours last night. encouraged to get out of bed; observed pacing unit hallway with walker; continues on 1:1 safety checks. Per nursing, pt had another fall this morning around 0500 in bathroom. Continue current tx plan. 07/14 poverty of thought, still internally preoccupied but may not be fully forthcoming. Parkinsonian s/s noted, some rigidity and unsteady gait. She is currently on risperidone, worried about increase in risperidone as it may worsen parkinsonism, also wondering how much sinemet may be affecting psychosis. She does not appear delirious, seems significant negative symptoms related to schizophrenia. 07/15 decrease sinemet to once a day. schedule trazodone 50mg po qhs. 07/16 continue current meds. She is also on macrobid recently started added end date. Reason for continued inpatient stay Substantial Risk for: inability to function Time Spent With Patient Time: Total time managing care of this patient today ____ minutes.
[2024-07-17 00:10] VITALS: BP 90/53; PULSE 80
[2024-07-17] MEDS: Melatonin 3 MG TABLET 6 MG PO ×2 (00:18→22:19)
[2024-07-17] MEDS: risperiDONE 2 MG TABLET PO ×2 (00:18→22:21)
[2024-07-17] MEDS: Benztropine Mesylate 0.5 MG TABLET PO ×2 (00:18→22:21)
[2024-07-17] MEDS: traZODone HCL 25 MG HALFTAB 75 MG PO ×2 (00:19→22:20)
[2024-07-17] MEDS: Sulfamethox/Trimeth 800/160 TABLET 1 TAB PO ×2 (00:19→09:30)
[2024-07-17 07:48] VITALS: BP 113/56; PULSE 87; RESP 18; TEMP 36.6; O2SAT 94
[2024-07-17] MEDS: Metoprolol Tartrate 25 MG TABLET PO ×2 (08:41→22:21)
[2024-07-17] MEDS: risperiDONE 1 MG TABLET PO (08:41)
[2024-07-17] MEDS: Fenofibrate 160 MG TABLET PO (08:41)
[2024-07-17] MEDS: Atorvastatin Calcium 10 MG TABLET PO (08:41)
[2024-07-17] MEDS: Carbidopa/Levodopa 25/100 TABLET 1 TAB PO (08:41)
--- NOTE | 2024-07-17 09:44 | HO.PSYCHPN ---
Subjective Subjective Date of Service: 07/17/24 Reason For Visit: Crisis Subjective Notes: Conditional Voluntary Interim History: Continues to lay in bed. encouraged to go for a walk; pt agreed and paced unit hallway with 1:1. She reports feeling alright today. difficult to engage. Patient reports she is no longer seeing police outside my window ; denies SI/HI/VH/AH. Encouraged to attend groups. Medication Compliance: Yes Side effects from medications: No Attending Groups: No Mental Status Exam Mental Status Exam Narrative: Pt is alert and oriented; behavior is cooperative and calm; dressed in casual attire, disheveled; mood is described as okay; eye contact appropriate; Speech is normal rate, volume and not pressured;liner; difficult to engage; no SI/HI/AH/VH expressed. Diagnostics Vital Signs (24Hr): Vital Signs - 24 hr 07/16/24 15:47 07/16/24 19:48 07/17/24 00:10 Temperature 98.3 F Pulse Rate 105 H 87 80 Respiratory Rate 16 Blood Pressure 129/58 L 101/51 L 90/53 L Pulse Oximetry 95 Oxygen Delivery Method Room Air 07/17/24 07:48 Temperature 97.8 F Pulse Rate 87 Respiratory Rate 18 Blood Pressure 113/56 L Pulse Oximetry 94 Oxygen Delivery Method Room Air BMI result Body Mass Index 19.4 Labs 07/04/24 08:24 07/15/24 15:28 Labs: Laboratory Results - last 48 hr 07/15/24 15:28 Sodium 138 Potassium 4.4 Chloride 105 Carbon Dioxide 23 Anion Gap 14 BUN 27 H Creatinine 1.02 Estim Creat Clear Calc 42.7 Estimated GFR 54 Random Glucose 107 Calcium 9.8 Total Bilirubin 0.3 AST 39 H ALT < 6 Alkaline Phosphatase 49 Total Protein 6.7 Albumin 3.7 Imaging Radiology Impressions: ITS Impressions Hip X-Ray 07/11/24 13:00 IMPRESSION: 1. No acute bony abnormality of either hip joint. Electronically signed by: Felix Zavala MD 07/11/2024 01:41 PM EDT RP Lumbar Spine X-Ray 07/11/24 13:00 IMPRESSION: Multilevel thoracolumbar spondylosis with incomplete ankylosis L4-5 and L5-S1. Electronically signed by: Kamran Salinas MD 07/11/2024 01:38 PM EDT RP Medications Medications Current Medications Acetaminophen (Acetaminophen 325 Mg Tablet) 650 mg PO Q6H PRN PRN Reason: Headache/Pain, Scale 1-10 Last Admin: 07/14/24 12:26 Dose: 650 mg Al Hydroxide/Mg Hydroxide (Magnesium Hydrox/Alum Hydrox 30 Ml Oral.Susp) 30 ml PO Q6H PRN PRN Reason: Heartburn/Nausea Atorvastatin Calcium (Atorvastatin Calcium 10 Mg Tablet) 10 mg PO DAILY [facility] Last Admin: 07/17/24 08:41 Dose: 10 mg Benztropine Mesylate (Benztropine Mesylate 0.5 Mg Tablet) 0.5 mg PO BEDTIME [facility] Last Admin: 07/17/24 00:18 Dose: 0.5 mg Carbidopa/Levodopa (Carbidopa/Levodopa 25/100 Tablet) 1 tab PO DAILY [facility] Last Admin: 07/17/24 08:41 Dose: 1 tab Fenofibrate (Fenofibrate 160 Mg Tablet) 160 mg PO DAILY [facility] Last Admin: 07/17/24 08:41 Dose: 160 mg Magnesium Hydroxide (Milk Of Magnesia 30 Ml Oral.Susp) 30 ml PO DAILY PRN PRN Reason: Constipation Melatonin (Melatonin 3 Mg Tablet) 6 mg PO BEDTIME [facility] Last Admin: 07/17/24 00:18 Dose: 6 mg Metoprolol Tartrate (Metoprolol Tartrate 25 Mg Tablet) 25 mg PO BID [facility]; Protocol Last Admin: 07/17/24 08:41 Dose: 25 mg Nicotine Polacrilex (Nicotine Polacrilex 2 Mg Gum) 4 mg BUCCAL Q2H PRN PRN Reason: Nicotine Cravings Risperidone (Risperidone 1 Mg Tablet) 1 mg PO DAILY [facility] Last Admin: 07/17/24 08:41 Dose: 1 mg Risperidone (Risperidone 2 Mg Tablet) 2 mg PO BEDTIME [facility] Last Admin: 07/17/24 00:18 Dose: 2 mg Trazodone HCl (Trazodone Hcl 25 Mg Halftab) 75 mg PO BEDTIME [facility] Last Admin: 07/17/24 00:19 Dose: 75 mg Trimethoprim/Sulfamethoxazole (Sulfamethox/Trimeth 800/160 Tablet) 1 tab PO Q12H [facility] Last Admin: 07/17/24 09:30 Dose: 1 tab Allergies Allergies Allergy/AdvReac Type Severity Reaction Status Date / Time No Known Allergies Allergy Verified 07/04/24 06:29 Assessment & Plan Assessment & Plan (1) Schizophrenia: Qualifiers: Schizophrenia type: undifferentiated schizophrenia Qualified Code(s): F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 07/05: restart home medications. Referral to outpatient psychiatric providers. Referral for VNA for assistance in medication compliance. Encourage groups. Discharge planning. 07/06: appears suspicious, disheveled, joe. c/o poor sleep, agrees to increase remeron to 15 QHS with repeat PRN. otherwise continue current mgmt. 07/07: c/o insomnia. increase seroquel from 50 mg QHS to 150 mg QHS. seroquel 25 mg PRNs added for agitation/paranoia. otherwise continue current mgmt. 07/08: slept better last night. c/o VH, which is new over the past couple of days, concerned it is a medication effect. MD agrees to decrease remeron back to 7.5 mg QHS. otherwise continue current mgmt. 07/09: Keeping to self. In room most of shift. Patient reports feeling okay today; she reports falling last night d/t her socks being oversized. Observed responding to internal stimuli; pt stated, I thought someone was there but they weren't . denies SI/HI/AH. Ordered Bactrim 1tab Q12HR after receiving urine culture results. Encouraged to attend groups. Awaiting MOCA results. 07/10: UTI-related delirium recently. keflex changed to bactrim due to antimicrobial resistance profile. will monitor MS for improvement over the next several days. continue current regimen otherwise. 07/11: Keeping to self. Patient reports feeling alright today; discussed how police were at her window last night. Pt stated, I think they got something on me . denies SI/HI. Per nursing, she did not sleep last night; however patient reports that she did. Per nursing, had unwitnessed fall this morning. Placed on 1:1 safety checks. Ordered hospitalist consult and head CT. 07/12: head CT and hip/back Xrays NEG. slept better last night and no delusional statements. continues to appear to have perhaps VH this morning, MS not clear. continue current mgmt for now. expectantly waiting for bactrim to resolve UTI and from there resolution of delirium. 07/13: Patient reports feeling okay this morning; did not appear to be responding to internal stimuli. Patient did mention police being at her window last night. She denies SI/HI/VH/AH. denies UTI symptoms; continues on antibiotic. Per nursing, slept 7 hours last night. encouraged to get out of bed; observed pacing unit hallway with walker; continues on 1:1 safety checks. Per nursing, pt had another fall this morning around 0500 in bathroom. Continue current tx plan. 07/17: Continues to lay in bed. encouraged to go for a walk; pt agreed and paced unit hallway with 1:1. She reports feeling alright today. difficult to engage. Patient reports she is no longer seeing police outside my window ; denies SI/HI/VH/AH. Encouraged to attend groups. Patient educated on: diagnosis and medication risk/benefits Reason for continued inpatient stay Substantial Risk for: inability to function Time Spent With Patient Time: Total time managing care of this patient today _20___ minutes.
[2024-07-17 22:05] VITALS: BP 121/58; PULSE 93; RESP 16; TEMP 37.4; O2SAT 95
[2024-07-18 07:47] VITALS: BP 109/57; PULSE 80; RESP 14; TEMP 36.9; O2SAT 95
[2024-07-18] MEDS: Carbidopa/Levodopa 25/100 TABLET 1 TAB PO (09:05)
[2024-07-18] MEDS: Atorvastatin Calcium 10 MG TABLET PO (09:05)
[2024-07-18] MEDS: risperiDONE 1 MG TABLET PO (09:05)
[2024-07-18] MEDS: Fenofibrate 160 MG TABLET PO (09:05)
[2024-07-18 10:49] VITALS: BP 119/64; PULSE 87
[2024-07-18] MEDS: Metoprolol Tartrate 25 MG TABLET PO ×2 (10:49→21:32)
--- NOTE | 2024-07-18 13:52 | P.PNPSI_ITS ---
Subjective Subjective Date of Service: 07/18/24 Reason For Visit: Crisis Subjective Notes: Conditional Voluntary Interim History: Continues to lay in bed most of shift. Patient reports feeling okay today; responding with short answers. Encouraged to go for a walk; pt agreed and paced unit hallway once with 1:1, then returned to bed. Showered with staff assistance. denies SI/HI/VH/AH. per nursing, slept 7 hours last night. Medication Compliance: Yes Side effects from medications: No Attending Groups: No Mental Status Exam Mental Status Exam Narrative: Pt is alert and oriented; behavior is cooperative and calm; dressed in casual attire, disheveled; mood is described as okay; eye contact appropriate; Speech is normal rate, volume and not pressured;liner; difficult to engage; no SI/HI/AH/VH expressed. Diagnostics Vital Signs (24Hr): Vital Signs - 24 hr 07/17/24 22:05 07/18/24 07:47 07/18/24 10:49 Temperature 99.3 F 98.4 F Pulse Rate 93 80 87 Respiratory Rate 16 14 Blood Pressure 121/58 L 109/57 L 119/64 Pulse Oximetry 95 95 Oxygen Delivery Method Room Air Room Air BMI result Body Mass Index 19.4 Labs 07/04/24 08:24 07/15/24 15:28 Imaging Radiology Impressions: ITS Impressions Hip X-Ray 07/11/24 13:00 IMPRESSION: 1. No acute bony abnormality of either hip joint. Electronically signed by: Felix Zavala MD 07/11/2024 01:41 PM EDT RP Lumbar Spine X-Ray 07/11/24 13:00 IMPRESSION: Multilevel thoracolumbar spondylosis with incomplete ankylosis L4-5 and L5-S1. Electronically signed by: Kamran Salinas MD 07/11/2024 01:38 PM EDT RP Medications Medications Current Medications Acetaminophen (Acetaminophen 325 Mg Tablet) 650 mg PO Q6H PRN PRN Reason: Headache/Pain, Scale 1-10 Last Admin: 07/14/24 12:26 Dose: 650 mg Al Hydroxide/Mg Hydroxide (Magnesium Hydrox/Alum Hydrox 30 Ml Oral.Susp) 30 ml PO Q6H PRN PRN Reason: Heartburn/Nausea Atorvastatin Calcium (Atorvastatin Calcium 10 Mg Tablet) 10 mg PO DAILY [facility] Last Admin: 07/18/24 09:05 Dose: 10 mg Benztropine Mesylate (Benztropine Mesylate 0.5 Mg Tablet) 0.5 mg PO BEDTIME [facility] Last Admin: 07/17/24 22:21 Dose: 0.5 mg Carbidopa/Levodopa (Carbidopa/Levodopa 25/100 Tablet) 1 tab PO DAILY [facility] Last Admin: 07/18/24 09:05 Dose: 1 tab Fenofibrate (Fenofibrate 160 Mg Tablet) 160 mg PO DAILY [facility] Last Admin: 07/18/24 09:05 Dose: 160 mg Magnesium Hydroxide (Milk Of Magnesia 30 Ml Oral.Susp) 30 ml PO DAILY PRN PRN Reason: Constipation Melatonin (Melatonin 3 Mg Tablet) 6 mg PO BEDTIME [facility] Last Admin: 07/17/24 22:19 Dose: 6 mg Metoprolol Tartrate (Metoprolol Tartrate 25 Mg Tablet) 25 mg PO BID [facility]; Protocol Last Admin: 07/18/24 10:49 Dose: 25 mg Nicotine Polacrilex (Nicotine Polacrilex 2 Mg Gum) 4 mg BUCCAL Q2H PRN PRN Reason: Nicotine Cravings Risperidone (Risperidone 1 Mg Tablet) 1 mg PO DAILY [facility] Last Admin: 07/18/24 09:05 Dose: 1 mg Risperidone (Risperidone 2 Mg Tablet) 2 mg PO BEDTIME [facility] Last Admin: 07/17/24 22:21 Dose: 2 mg Trazodone HCl (Trazodone Hcl 25 Mg Halftab) 75 mg PO BEDTIME [facility] Last Admin: 07/17/24 22:20 Dose: 75 mg Allergies Allergies Allergy/AdvReac Type Severity Reaction Status Date / Time No Known Allergies Allergy Verified 07/04/24 06:29 Assessment & Plan Assessment & Plan (1) Schizophrenia: Qualifiers: Schizophrenia type: undifferentiated schizophrenia Qualified Code(s): F 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 07/05: restart home medications. Referral to outpatient psychiatric providers. Referral for VNA for assistance in medication compliance. Encourage groups. Discharge planning. 07/06: appears suspicious, disheveled, joe. c/o poor sleep, agrees to increase remeron to 15 QHS with repeat PRN. otherwise continue current mgmt. 07/07: c/o insomnia. increase seroquel from 50 mg QHS to 150 mg QHS. seroquel 25 mg PRNs added for agitation/paranoia. otherwise continue current mgmt. 07/08: slept better last night. c/o VH, which is new over the past couple of days, concerned it is a medication effect. MD agrees to decrease remeron back to 7.5 mg QHS. otherwise continue current mgmt. 07/09: Keeping to self. In room most of shift. Patient reports feeling okay today; she reports falling last night d/t her socks being oversized. Observed responding to internal stimuli; pt stated, I thought someone was there but they weren't . denies SI/HI/AH. Ordered Bactrim 1tab Q12HR after receiving urine culture results. Encouraged to attend groups. Awaiting MOCA results. 07/10: UTI-related delirium recently. keflex changed to bactrim due to antimicrobial resistance profile. will monitor MS for improvement over the next several days. continue current regimen otherwise. 07/11: Keeping to self. Patient reports feeling alright today; discussed how police were at her window last night. Pt stated, I think they got something on me . denies SI/HI. Per nursing, she did not sleep last night; however patient reports that she did. Per nursing, had unwitnessed fall this morning. Placed on 1:1 safety checks. Ordered hospitalist consult and head CT. 07/12: head CT and hip/back Xrays NEG. slept better last night and no delusional statements. continues to appear to have perhaps VH this morning, MS not clear. continue current mgmt for now. expectantly waiting for bactrim to resolve UTI and from there resolution of delirium. 07/13: Patient reports feeling okay this morning; did not appear to be responding to internal stimuli. Patient did mention police being at her window last night. She denies SI/HI/VH/AH. denies UTI symptoms; continues on antibiotic. Per nursing, slept 7 hours last night. encouraged to get out of bed; observed pacing unit hallway with walker; continues on 1:1 safety checks. Per nursing, pt had another fall this morning around 0500 in bathroom. Continue current tx plan. 07/17: Continues to lay in bed. encouraged to go for a walk; pt agreed and paced unit hallway with 1:1. She reports feeling alright today. difficult to engage. Patient reports she is no longer seeing police outside my window ; denies SI/HI/VH/AH. Encouraged to attend groups. 07/18: Continues to lay in bed most of shift. Patient reports feeling okay today; responding with short answers. Encouraged to go for a walk; pt agreed and paced unit hallway once with 1:1, then returned to bed. Showered with staff assistance. denies SI/HI/VH/AH. per nursing, slept 7 hours last night. Continue tx plan. Patient educated on: therapeutic strategies Reason for continued inpatient stay Substantial Risk for: inability to function Time Spent With Patient Time: Total time managing care of this patient today _20___ minutes.
[2024-07-18 14:45] VITALS: BP 119/64; PULSE 87
[2024-07-18 21:20] VITALS: BP 134/59; PULSE 74; RESP 16; TEMP 36.4; O2SAT 96
[2024-07-18] MEDS: Acetaminophen 325 MG TABLET 650 MG PO (21:30)
[2024-07-18] MEDS: traZODone HCL 25 MG HALFTAB 75 MG PO (21:31)
[2024-07-18] MEDS: risperiDONE 2 MG TABLET PO (21:32)
[2024-07-18] MEDS: Benztropine Mesylate 0.5 MG TABLET PO (21:32)
[2024-07-18] MEDS: Melatonin 3 MG TABLET 6 MG PO (21:39)
[2024-07-19 07:00] VITALS: BMI 19.2
[2024-07-19 07:29] VITALS: BP 87/51; PULSE 62; RESP 14; TEMP 36.4; O2SAT 96
[2024-07-19] MEDS: Atorvastatin Calcium 10 MG TABLET PO (08:52)
[2024-07-19 08:53] VITALS: BP 100/50; PULSE 87
[2024-07-19] MEDS: Fenofibrate 160 MG TABLET PO (08:53)
[2024-07-19] MEDS: Metoprolol Tartrate 25 MG TABLET PO ×2 (08:53→21:30)
[2024-07-19] MEDS: risperiDONE 1 MG TABLET PO (08:53)
[2024-07-19] MEDS: Carbidopa/Levodopa 25/100 TABLET 1 TAB PO (08:55)
[2024-07-19] MEDS: Acetaminophen 325 MG TABLET 650 MG PO (10:24)
--- NOTE | 2024-07-19 11:31 | HO.PSYCHPN ---
Subjective Subjective Date of Service: 07/19/24 Reason For Visit: Crisis Subjective Notes: Conditional Voluntary Interim History: Continues to lay in bed most of shift. encouraged to attend groups but declines. Patient reports feeling alright ; responding with short answers. difficult to engage. paced unit hallway once with 1:1, then returned to bed. denies SI/HI/VH/AH. Medication Compliance: Yes Side effects from medications: No Attending Groups: No Mental Status Exam Mental Status Exam Narrative: Pt is alert and oriented; behavior is cooperative and calm; dressed in casual attire, disheveled; mood is described as okay; eye contact appropriate; Speech is normal rate, volume and not pressured;liner; difficult to engage; no SI/HI/AH/VH expressed. Diagnostics Vital Signs (24Hr): Vital Signs - 24 hr 07/18/24 14:45 07/18/24 21:20 07/19/24 07:29 Temperature 97.5 F 97.6 F Pulse Rate 87 74 62 Respiratory Rate 16 14 Blood Pressure 119/64 134/59 L 87/51 L Pulse Oximetry 96 96 Oxygen Delivery Method Room Air Room Air 07/19/24 08:53 Temperature Pulse Rate 87 Respiratory Rate Blood Pressure 100/50 L Pulse Oximetry Oxygen Delivery Method BMI result Body Mass Index 19.4 Labs 07/04/24 08:24 07/15/24 15:28 Imaging Radiology Impressions: ITS Impressions Hip X-Ray 07/11/24 13:00 IMPRESSION: 1. No acute bony abnormality of either hip joint. Electronically signed by: Felix Zavala MD 07/11/2024 01:41 PM EDT Lumbar Spine X-Ray 07/11/24 13:00 IMPRESSION: Multilevel thoracolumbar spondylosis with incomplete ankylosis L4-5 and L5-S1. Electronically signed by: Kamran Salinas MD 07/11/2024 01:38 PM EDT RP Medications Medications Current Medications Acetaminophen (Acetaminophen 325 Mg Tablet) 650 mg PO Q6H PRN PRN Reason: Headache/Pain, Scale 1-10 Last Admin: 07/19/24 10:24 Dose: 650 mg Al Hydroxide/Mg Hydroxide (Magnesium Hydrox/Alum Hydrox 30 Ml Oral.Susp) 30 ml PO Q6H PRN PRN Reason: Heartburn/Nausea Atorvastatin Calcium (Atorvastatin Calcium 10 Mg Tablet) 10 mg PO DAILY [facility] Last Admin: 07/19/24 08:52 Dose: 10 mg Benztropine Mesylate (Benztropine Mesylate 0.5 Mg Tablet) 0.5 mg PO BEDTIME [facility] Last Admin: 07/18/24 21:32 Dose: 0.5 mg Carbidopa/Levodopa (Carbidopa/Levodopa 25/100 Tablet) 1 tab PO DAILY [facility] Last Admin: 07/19/24 08:55 Dose: 1 tab Fenofibrate (Fenofibrate 160 Mg Tablet) 160 mg PO DAILY [facility] Last Admin: 07/19/24 08:53 Dose: 160 mg Magnesium Hydroxide (Milk Of Magnesia 30 Ml Oral.Susp) 30 ml PO DAILY PRN PRN Reason: Constipation Melatonin (Melatonin 3 Mg Tablet) 6 mg PO BEDTIME [facility] Last Admin: 07/18/24 21:39 Dose: 6 mg Metoprolol Tartrate (Metoprolol Tartrate 25 Mg Tablet) 25 mg PO BID [facility]; Protocol Last Admin: 07/19/24 08:53 Dose: 25 mg Nicotine Polacrilex (Nicotine Polacrilex 2 Mg Gum) 4 mg BUCCAL Q2H PRN PRN Reason: Nicotine Cravings Risperidone (Risperidone 1 Mg Tablet) 1 mg PO DAILY [facility] Last Admin: 07/19/24 08:53 Dose: 1 mg Risperidone (Risperidone 2 Mg Tablet) 2 mg PO BEDTIME [facility] Last Admin: 07/18/24 21:32 Dose: 2 mg Trazodone HCl (Trazodone Hcl 25 Mg Halftab) 75 mg PO BEDTIME [facility] Last Admin: 07/18/24 21:31 Dose: 75 mg Allergies Allergies Allergy/AdvReac Type Severity Reaction Status Date / Time No Known Allergies Allergy Verified 07/04/24 06:29 Assessment & Plan Assessment & Plan (1) Schizophrenia: Qualifiers: Schizophrenia type: undifferentiated schizophrenia Qualified Code(s): F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 07/05: restart home medications. Referral to outpatient psychiatric providers. Referral for VNA for assistance in medication compliance. Encourage groups. Discharge planning. 07/06: appears suspicious, disheveled, joe. c/o poor sleep, agrees to increase remeron to 15 QHS with repeat PRN. otherwise continue current mgmt. 07/07: c/o insomnia. increase seroquel from 50 mg QHS to 150 mg QHS. seroquel 25 mg PRNs added for agitation/paranoia. otherwise continue current mgmt. 07/08: slept better last night. c/o VH, which is new over the past couple of days, concerned it is a medication effect. MD agrees to decrease remeron back to 7.5 mg QHS. otherwise continue current mgmt. 07/09: Keeping to self. In room most of shift. Patient reports feeling okay today; she reports falling last night d/t her socks being oversized. Observed responding to internal stimuli; pt stated, I thought someone was there but they weren't . denies SI/HI/AH. Ordered Bactrim 1tab Q12HR after receiving urine culture results. Encouraged to attend groups. Awaiting MOCA results. 07/10: UTI-related delirium recently. keflex changed to bactrim due to antimicrobial resistance profile. will monitor MS for improvement over the next several days. continue current regimen otherwise. 07/11: Keeping to self. Patient reports feeling alright today; discussed how police were at her window last night. Pt stated, I think they got something on me . denies SI/HI. Per nursing, she did not sleep last night; however patient reports that she did. Per nursing, had unwitnessed fall this morning. Placed on 1:1 safety checks. Ordered hospitalist consult and head CT. 07/12: head CT and hip/back Xrays NEG. slept better last night and no delusional statements. continues to appear to have perhaps VH this morning, MS not clear. continue current mgmt for now. expectantly waiting for bactrim to resolve UTI and from there resolution of delirium. 07/13: Patient reports feeling okay this morning; did not appear to be responding to internal stimuli. Patient did mention police being at her window last night. She denies SI/HI/VH/AH. denies UTI symptoms; continues on antibiotic. Per nursing, slept 7 hours last night. encouraged to get out of bed; observed pacing unit hallway with walker; continues on 1:1 safety checks. Per nursing, pt had another fall this morning around 0500 in bathroom. Continue current tx plan. 07/17: Continues to lay in bed. encouraged to go for a walk; pt agreed and paced unit hallway with 1:1. She reports feeling alright today. difficult to engage. Patient reports she is no longer seeing police outside my window ; denies SI/HI/VH/AH. Encouraged to attend groups. 07/18: Continues to lay in bed most of shift. Patient reports feeling okay today; responding with short answers. Encouraged to go for a walk; pt agreed and paced unit hallway once with 1:1, then returned to bed. Showered with staff assistance. denies SI/HI/VH/AH. per nursing, slept 7 hours last night. Continue tx plan. 07/19: encouraged to attend groups but declines. Patient reports feeling alright ; responding with short answers. difficult to engage. paced unit hallway once with 1:1, then returned to bed. denies SI/HI/VH/AH. Patient educated on: medication risk/benefits and therapeutic strategies Reason for continued inpatient stay Substantial Risk for: inability to function and med/psych decompensation Time Spent With Patient Time: Total time managing care of this patient today _20___ minutes.
[2024-07-19 21:28] VITALS: BP 103/53; PULSE 81; RESP 16; TEMP 36.9; O2SAT 97
[2024-07-19 21:30] VITALS: BP 103/53; PULSE 81
[2024-07-19] MEDS: risperiDONE 2 MG TABLET PO (21:30)
[2024-07-19] MEDS: Benztropine Mesylate 0.5 MG TABLET PO (21:30)
[2024-07-19] MEDS: traZODone HCL 25 MG HALFTAB 75 MG PO (21:30)
[2024-07-19] MEDS: Melatonin 3 MG TABLET 6 MG PO (21:31)
[2024-07-20 07:53] VITALS: BP 97/56; PULSE 90; RESP 18; TEMP 36.9; O2SAT 95
[2024-07-20] MEDS: Carbidopa/Levodopa 25/100 TABLET 1 TAB PO (08:31)
[2024-07-20] MEDS: risperiDONE 1 MG TABLET PO (08:32)
[2024-07-20] MEDS: Atorvastatin Calcium 10 MG TABLET PO (08:32)
[2024-07-20] MEDS: Metoprolol Tartrate 25 MG TABLET PO ×2 (08:32→20:31)
[2024-07-20] MEDS: Fenofibrate 160 MG TABLET PO (08:32)
--- NOTE | 2024-07-20 08:57 | HO.PSYCHPN ---
Subjective Subjective Date of Service: 07/20/24 Reason For Visit: Crisis Subjective Notes: Conditional Voluntary Interim History: Continues to lay in bed most of shift, unless encouraged to get out of bed. continues to decline to attend groups. showered today with staff encouragement and assistance. Patient reports feeling alright ; difficult to engage. denies SI/HI/VH/AH. Start: Rexulti 1mg PO daily. Namenda 5mg PO daily Begin to taper off risperidal; decrease risperidal to 2mg PO bedtime. Medication Compliance: Yes Side effects from medications: No Attending Groups: No Mental Status Exam Mental Status Exam Narrative: Pt is alert and oriented; behavior is cooperative and calm; dressed in casual attire, disheveled; mood is described as okay; eye contact appropriate; Speech is normal rate, volume and not pressured;liner; difficult to engage; no SI/HI/AH/VH expressed. Diagnostics Vital Signs (24Hr): Vital Signs - 24 hr 07/19/24 21:28 07/19/24 21:30 07/20/24 07:53 Temperature 98.4 F 98.4 F Pulse Rate 81 81 90 Respiratory Rate 16 18 Blood Pressure 103/53 L 103/53 L 97/56 L Pulse Oximetry 97 95 Oxygen Delivery Method Room Air Room Air BMI result Body Mass Index 19.2 Labs 07/04/24 08:24 07/15/24 15:28 Imaging Radiology Impressions: ITS Impressions Hip X-Ray 07/11/24 13:00 IMPRESSION: 1. No acute bony abnormality of either hip joint. Electronically signed by: Felix Zavala MD 07/11/2024 01:41 PM EDT RP Lumbar Spine X-Ray 07/11/24 13:00 IMPRESSION: Multilevel thoracolumbar spondylosis with incomplete ankylosis L4-5 and L5-S1. Electronically signed by: Kamran Salinas MD 07/11/2024 01:38 PM EDT RP Medications Medications Current Medications Acetaminophen (Acetaminophen 325 Mg Tablet) 650 mg PO Q6H PRN PRN Reason: Headache/Pain, Scale 1-10 Last Admin: 07/19/24 10:24 Dose: 650 mg Al Hydroxide/Mg Hydroxide (Magnesium Hydrox/Alum Hydrox 30 Ml Oral.Susp) 30 ml PO Q6H PRN PRN Reason: Heartburn/Nausea Atorvastatin Calcium (Atorvastatin Calcium 10 Mg Tablet) 10 mg PO DAILY [facility] Last Admin: 07/20/24 08:32 Dose: 10 mg Benztropine Mesylate (Benztropine Mesylate 0.5 Mg Tablet) 0.5 mg PO BEDTIME [facility] Last Admin: 07/19/24 21:30 Dose: 0.5 mg Carbidopa/Levodopa (Carbidopa/Levodopa 25/100 Tablet) 1 tab PO DAILY [facility] Last Admin: 07/20/24 08:31 Dose: 1 tab Fenofibrate (Fenofibrate 160 Mg Tablet) 160 mg PO DAILY [facility] Last Admin: 07/20/24 08:32 Dose: 160 mg Magnesium Hydroxide (Milk Of Magnesia 30 Ml Oral.Susp) 30 ml PO DAILY PRN PRN Reason: Constipation Melatonin (Melatonin 3 Mg Tablet) 6 mg PO BEDTIME [facility] Last Admin: 07/19/24 21:31 Dose: 6 mg Metoprolol Tartrate (Metoprolol Tartrate 25 Mg Tablet) 25 mg PO BID [facility]; Protocol Last Admin: 07/20/24 08:32 Dose: 25 mg Nicotine Polacrilex (Nicotine Polacrilex 2 Mg Gum) 4 mg BUCCAL Q2H PRN PRN Reason: Nicotine Cravings Risperidone (Risperidone 1 Mg Tablet) 1 mg PO DAILY [facility] Last Admin: 07/20/24 08:32 Dose: 1 mg Risperidone (Risperidone 2 Mg Tablet) 2 mg PO BEDTIME [facility] Last Admin: 07/19/24 21:30 Dose: 2 mg Trazodone HCl (Trazodone Hcl 25 Mg Halftab) 75 mg PO BEDTIME [facility] Last Admin: 07/19/24 21:30 Dose: 75 mg Allergies Allergies Allergy/AdvReac Type Severity Reaction Status Date / Time No Known Allergies Allergy Verified 07/04/24 06:29 Assessment & Plan Assessment & Plan (1) Schizophrenia: Qualifiers: Schizophrenia type: undifferentiated schizophrenia Qualified Code(s): F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 07/05: restart home medications. Referral to outpatient psychiatric providers. Referral for VNA for assistance in medication compliance. Encourage groups. Discharge planning. 07/06: appears suspicious, disheveled, joe. c/o poor sleep, agrees to increase remeron to 15 QHS with repeat PRN. otherwise continue current mgmt. 07/07: c/o insomnia. increase seroquel from 50 mg QHS to 150 mg QHS. seroquel 25 mg PRNs added for agitation/paranoia. otherwise continue current mgmt. 07/08: slept better last night. c/o VH, which is new over the past couple of days, concerned it is a medication effect. MD agrees to decrease remeron back to 7.5 mg QHS. otherwise continue current mgmt. 07/09: Keeping to self. In room most of shift. Patient reports feeling okay today; she reports falling last night d/t her socks being oversized. Observed responding to internal stimuli; pt stated, I thought someone was there but they weren't . denies SI/HI/AH. Ordered Bactrim 1tab Q12HR after receiving urine culture results. Encouraged to attend groups. Awaiting MOCA results. 07/10: UTI-related delirium recently. keflex changed to bactrim due to antimicrobial resistance profile. will monitor MS for improvement over the next several days. continue current regimen otherwise. 07/11: Keeping to self. Patient reports feeling alright today; discussed how police were at her window last night. Pt stated, I think they got something on me . denies SI/HI. Per nursing, she did not sleep last night; however patient reports that she did. Per nursing, had unwitnessed fall this morning. Placed on 1:1 safety checks. Ordered hospitalist consult and head CT. 07/12: head CT and hip/back Xrays NEG. slept better last night and no delusional statements. continues to appear to have perhaps VH this morning, MS not clear. continue current mgmt for now. expectantly waiting for bactrim to resolve UTI and from there resolution of delirium. 07/13: Patient reports feeling okay this morning; did not appear to be responding to internal stimuli. Patient did mention police being at her window last night. She denies SI/HI/VH/AH. denies UTI symptoms; continues on antibiotic. Per nursing, slept 7 hours last night. encouraged to get out of bed; observed pacing unit hallway with walker; continues on 1:1 safety checks. Per nursing, pt had another fall this morning around 0500 in bathroom. Continue current tx plan. 07/17: Continues to lay in bed. encouraged to go for a walk; pt agreed and paced unit hallway with 1:1. She reports feeling alright today. difficult to engage. Patient reports she is no longer seeing police outside my window ; denies SI/HI/VH/AH. Encouraged to attend groups. 07/18: Continues to lay in bed most of shift. Patient reports feeling okay today; responding with short answers. Encouraged to go for a walk; pt agreed and paced unit hallway once with 1:1, then returned to bed. Showered with staff assistance. denies SI/HI/VH/AH. per nursing, slept 7 hours last night. Continue tx plan. 07/19: encouraged to attend groups but declines. Patient reports feeling alright ; responding with short answers. difficult to engage. paced unit hallway once with 1:1, then returned to bed. denies SI/HI/VH/AH. 07/20: Continues to lay in bed most of shift, unless encouraged to get out of bed. continues to decline to attend groups. showered today with staff encouragement and assistance. Patient reports feeling alright ; difficult to engage. denies SI/HI/VH/AH. Start: Rexulti 1mg PO daily. Namenda 5mg PO daily Begin to taper off risperidal; decrease risperidal to 2mg PO bedtime. Patient educated on: therapeutic strategies Reason for continued inpatient stay Substantial Risk for: inability to function and med/psych decompensation Time Spent With Patient Time: Total time managing care of this patient today _20___ minutes.
[2024-07-20 11:26] VITALS: BP 109/65; PULSE 68; RESP 16
[2024-07-20] MEDS: Brexpiprazole 1 MG TABLET PO (13:58)
[2024-07-20] MEDS: Memantine HCl 5 MG TABLET PO (13:59)
[2024-07-20] MEDS: Docusate Sodium 100 MG CAPSULE PO ×2 (13:59→20:31)
[2024-07-20 14:43] LABS: MANUAL DIFF FLAG NO
[2024-07-20 14:52] LABS: Ammonia 63 umol/L (13-55)
[2024-07-20 14:56] LABS: Basophils Absolute Auto 0.1 X10*3/uL (0.0-0.2); Basophils Percent Auto 0.6 % (0-2); Eosinophils Absolute Auto 0.2 X10*3/uL (0.0-0.4); Eosinophils Percent Auto 2.8 % (0-4); Hematocrit 36.9 % (37.0-47.0); Hemoglobin 11.8 g/dl (12.0-16.0); Imm Gran Abs Auto 0.11 X10*3/uL (0.00-0.03); Imm Gran Pct Auto 1.3 % (0.0-0.4); Lymphocytes Absolute Auto 1.7 X10*3/uL (1.2-4.9); Lymphocytes Percent Auto 20.6 % (20-40); Mean Corpuscular Hemoglobin 28.7 pg (27.0-33.0); Mean Corpuscular Volume 89.8 fL (80.0-98.0); Mean Platelet Volume 12.5 fL (9.4-12.3); Monocytes Absolute Auto 0.8 X10*3/uL (0.1-1.2); Monocytes Percent Auto 9.7 % (2-11); Neutrophils Absolute Auto 5.3 x10*3/uL (2.0-8.3); Platelet Count 256 X10*3/uL (160-400); Red Blood Count 4.11 X10*6/uL (4.20-5.50); Red Cell Distribution Width 13.8 % (11.0-16.0); White Blood Count 8.2 X10*3/uL (4.8-10.8)
[2024-07-20 15:08] LABS: Alanine Aminotransferase 12 U/L (0-31); Albumin Level 3.7 g/dL (3.5-5.0); Alkaline Phosphatase 55 U/L (39-117); Anion Gap 9 (12-20); Aspartate Amino Transferase 25 U/L (5-31); Bilirubin Direct 0.1 mg/dL (0.0-0.5); Bilirubin Total 0.3 mg/dL (0.0-1.0); Blood Urea Nitrogen 24 mg/dL (9-16); Calcium 10.1 mg/dL (8.4-10.2); Carbon Dioxide 27 mmol/L (22-29); Chloride 108 mmol/L (96-108); Creatinine Clr Calc Pharmacy 43.4; Estimated Glomerular Filt Rate 56; Glucose Random 85 mg/dL (60-115); Iron 40 mcg/dL (30-160); Percent Iron Saturation 13 % (15-50); Potassium 4.1 mmol/L (3.3-5.1); Sodium 140 mmol/L (135-145); Total Iron Binding Capacity 300 mcg/dL (228-428); Total Protein 6.7 g/dL (6.5-8.0); Unsaturated Iron Binding 260 ug/dL
[2024-07-20 15:21] LABS: TSH reflex Free T4 1.16 uIU/mL (0.32-4.0)
[2024-07-20 15:36] LABS: Folate 6.5 ng/mL (> or = 4.0); Vitamin B12 289 pg/mL (200-900)
--- NOTE | 2024-07-20 17:58 | PC.NURSE ---
Pt. transferred onto unit at 16:00 via WC accompanied by RN and MHC. Skin assmt. and contraband search conducted without significant findings except for the following: L foot missing last 3 digits. R foot superficial 3 mm scabs 1st and 2nd digits. Pt. oriented to unit and room. Safety checks confirmed with provider as 5 minute checks and a bed alarm.
[2024-07-20 20:00] VITALS: BP 137/82; PULSE 74; RESP 18; TEMP 36.6; O2SAT 97
[2024-07-20] MEDS: risperiDONE 2 MG TABLET PO (20:31)
[2024-07-20] MEDS: Melatonin 3 MG TABLET 6 MG PO (20:31)
[2024-07-20] MEDS: Benztropine Mesylate 0.5 MG TABLET PO (20:31)
[2024-07-20] MEDS: traZODone HCL 25 MG HALFTAB 75 MG PO (20:31)
[2024-07-21 08:48] VITALS: BP 100/59; PULSE 83; RESP 18; TEMP 36.3; O2SAT 98
[2024-07-21] MEDS: Memantine HCl 5 MG TABLET PO (08:50)
[2024-07-21] MEDS: Brexpiprazole 1 MG TABLET PO (08:50)
[2024-07-21] MEDS: Carbidopa/Levodopa 25/100 TABLET 1 TAB PO (08:50)
[2024-07-21] MEDS: Docusate Sodium 100 MG CAPSULE PO ×2 (08:50→20:21)
[2024-07-21] MEDS: Metoprolol Tartrate 25 MG TABLET PO ×2 (08:51→20:22)
[2024-07-21] MEDS: Fenofibrate 160 MG TABLET PO (08:51)
[2024-07-21] MEDS: Atorvastatin Calcium 10 MG TABLET PO (08:51)
--- NOTE | 2024-07-21 13:37 | P.PNPSI_ITS ---
Subjective Subjective Date of Service: 07/21/24 Reason For Visit: Crisis Interim History: Tolerating medication changes. No complaints. She is isolated most of the time in her room but comes out for meals. Patient reports feeling OK ; difficult to engage. denies SI/HI/VH/AH. Review of Systems Reports system reviewed and no additional complaints, except as documented Cardiovascular: Reports no additional cardiovascular complaints Psychiatric: Reports as per HPI and Reports abnormal sleep pattern Mental Status Exam Mental Status Exam Narrative: Pt is alert and oriented; behavior is cooperative and calm; dressed in casual attire, disheveled; mood is described as okay; eye contact appropriate; Speech is normal rate, volume and not pressured;liner; difficult to engage; no SI/HI/AH/VH expressed. Diagnostics Vital Signs (24Hr): Vital Signs - 24 hr 07/20/24 20:00 07/21/24 08:48 Temperature 97.8 F 97.3 F Pulse Rate 74 83 Respiratory Rate 18 18 Blood Pressure 137/82 100/59 L Pulse Oximetry 97 98 Oxygen Delivery Method Room Air Room Air BMI result Body Mass Index 19.2 Labs 07/20/24 14:37 07/20/24 14:37 Labs: Laboratory Results - last 48 hr 07/20/24 14:37 WBC 8.2 RBC 4.11 L Hgb 11.8 L Hct 36.9 L MCV 89.8 MCH 28.7 MCHC 32.0 RDW 13.8 Plt Count 256 D MPV 12.5 H Immature Gran % (Auto) 1.3 H Neut % (Auto) 65.0 Lymph % (Auto) 20.6 [place] % (Auto) 9.7 Eos % (Auto) 2.8 Baso % (Auto) 0.6 Lymph # (Auto) 1.7 [place] # (Auto) 0.8 Eos # (Auto) 0.2 Baso # (Auto) 0.1 Abs Immat Gran (auto) 0.11 H Absolute Neuts (auto) 5.3 Absolute Nucleated RBC 0.000 Nucleated RBC % (auto) 0.0 Sodium 140 Potassium 4.1 Chloride 108 Carbon Dioxide 27 Anion Gap 9 L BUN 24 H Creatinine 0.99 Estim Creat Clear Calc 43.4 Estimated GFR 56 Random Glucose 85 Calcium 10.1 Iron 40 TIBC 300 % Saturation 13 L Unsat Iron Binding 260 Total Bilirubin 0.3 Direct Bilirubin 0.1 AST 25 ALT 12 Alkaline Phosphatase 55 Ammonia 63 H Total Protein 6.7 Albumin 3.7 Vitamin B12 289 Folate 6.5 TSH 1.16 Imaging Radiology Impressions: ITS Impressions Hip X-Ray 07/11/24 13:00 IMPRESSION: 1. No acute bony abnormality of either hip joint. Electronically signed by: Felix Zavala MD 07/11/2024 01:41 PM EDT RP Lumbar Spine X-Ray 07/11/24 13:00 IMPRESSION: Multilevel thoracolumbar spondylosis with incomplete ankylosis L4-5 and L5-S1. Electronically signed by: Kamran Salinas MD 07/11/2024 01:38 PM EDT RP Medications Medications Current Medications Acetaminophen (Acetaminophen 325 Mg Tablet) 650 mg PO Q6H PRN PRN Reason: Headache/Pain, Scale 1-10 Last Admin: 07/19/24 10:24 Dose: 650 mg Al Hydroxide/Mg Hydroxide (Magnesium Hydrox/Alum Hydrox 30 Ml Oral.Susp) 30 ml PO Q6H PRN PRN Reason: Heartburn/Nausea Atorvastatin Calcium (Atorvastatin Calcium 10 Mg Tablet) 10 mg PO DAILY [facility] Last Admin: 07/21/24 08:51 Dose: 10 mg Benztropine Mesylate (Benztropine Mesylate 0.5 Mg Tablet) 0.5 mg PO BEDTIME [facility] Last Admin: 07/20/24 20:31 Dose: 0.5 mg Brexpiprazole (Brexpiprazole 1 Mg Tablet) 1 mg PO DAILY [facility] Last Admin: 07/21/24 08:50 Dose: 1 mg Carbidopa/Levodopa (Carbidopa/Levodopa 25/100 Tablet) 1 tab PO DAILY [facility] Last Admin: 07/21/24 08:50 Dose: 1 tab Docusate Sodium (Docusate Sodium 100 Mg Capsule) 100 mg PO BID [facility] Last Admin: 07/21/24 08:50 Dose: 100 mg Fenofibrate (Fenofibrate 160 Mg Tablet) 160 mg PO DAILY [facility] Last Admin: 07/21/24 08:51 Dose: 160 mg Magnesium Hydroxide (Milk Of Magnesia 30 Ml Oral.Susp) 30 ml PO DAILY PRN PRN Reason: Constipation Melatonin (Melatonin 3 Mg Tablet) 6 mg PO BEDTIME [facility] Last Admin: 07/20/24 20:31 Dose: 6 mg Memantine (Memantine Hcl 5 Mg Tablet) 5 mg PO DAILY [facility] Last Admin: 07/21/24 08:50 Dose: 5 mg Metoprolol Tartrate (Metoprolol Tartrate 25 Mg Tablet) 25 mg PO BID [facility]; Protocol Last Admin: 07/21/24 08:51 Dose: 25 mg Risperidone (Risperidone 2 Mg Tablet) 2 mg PO BEDTIME [facility] Last Admin: 07/20/24 20:31 Dose: 2 mg Trazodone HCl (Trazodone Hcl 25 Mg Halftab) 75 mg PO BEDTIME [facility] Last Admin: 07/20/24 20:31 Dose: 75 mg Allergies Allergies Allergy/AdvReac Type Severity Reaction Status Date / Time No Known Allergies Allergy Verified 07/04/24 06:29 Assessment & Plan Assessment & Plan (1) Schizophrenia: Qualifiers: Schizophrenia type: undifferentiated schizophrenia Qualified Code(s): F 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 07/05: restart home medications. Referral to outpatient psychiatric providers. Referral for VNA for assistance in medication compliance. Encourage groups. Discharge planning. 07/06: appears suspicious, disheveled, joe. c/o poor sleep, agrees to increase remeron to 15 QHS with repeat PRN. otherwise continue current mgmt. 07/07: c/o insomnia. increase seroquel from 50 mg QHS to 150 mg QHS. seroquel 25 mg PRNs added for agitation/paranoia. otherwise continue current mgmt. 07/08: slept better last night. c/o VH, which is new over the past couple of days, concerned it is a medication effect. MD agrees to decrease remeron back to 7.5 mg QHS. otherwise continue current mgmt. 07/09: Keeping to self. In room most of shift. Patient reports feeling okay today; she reports falling last night d/t her socks being oversized. Observed responding to internal stimuli; pt stated, I thought someone was there but they weren't . denies SI/HI/AH. Ordered Bactrim 1tab Q12HR after receiving urine culture results. Encouraged to attend groups. Awaiting MOCA results. 07/10: UTI-related delirium recently. keflex changed to bactrim due to antimicrobial resistance profile. will monitor MS for improvement over the next several days. continue current regimen otherwise. 07/11: Keeping to self. Patient reports feeling alright today; discussed how police were at her window last night. Pt stated, I think they got something on me . denies SI/HI. Per nursing, she did not sleep last night; however patient reports that she did. Per nursing, had unwitnessed fall this morning. Placed on 1:1 safety checks. Ordered hospitalist consult and head CT. 07/12: head CT and hip/back Xrays NEG. slept better last night and no delusional statements. continues to appear to have perhaps VH this morning, MS not clear. continue current mgmt for now. expectantly waiting for bactrim to resolve UTI and from there resolution of delirium. 07/13: Patient reports feeling okay this morning; did not appear to be responding to internal stimuli. Patient did mention police being at her window last night. She denies SI/HI/VH/AH. denies UTI symptoms; continues on antibiotic. Per nursing, slept 7 hours last night. encouraged to get out of bed; observed pacing unit hallway with walker; continues on 1:1 safety checks. Per nursing, pt had another fall this morning around 0500 in bathroom. Continue current tx plan. 07/17: Continues to lay in bed. encouraged to go for a walk; pt agreed and paced unit hallway with 1:1. She reports feeling alright today. difficult to engage. Patient reports she is no longer seeing police outside my window ; denies SI/HI/VH/AH. Encouraged to attend groups. 07/18: Continues to lay in bed most of shift. Patient reports feeling okay today; responding with short answers. Encouraged to go for a walk; pt agreed and paced unit hallway once with 1:1, then returned to bed. Showered with staff assistance. denies SI/HI/VH/AH. per nursing, slept 7 hours last night. Continue tx plan. 07/19: encouraged to attend groups but declines. Patient reports feeling alright ; responding with short answers. difficult to engage. paced unit hallway once with 1:1, then returned to bed. denies SI/HI/VH/AH. 07/20: Continues to lay in bed most of shift, unless encouraged to get out of bed. continues to decline to attend groups. showered today with staff encouragement and assistance. Patient reports feeling alright ; difficult to engage. denies SI/HI/VH/AH. Start: Rexulti 1mg PO daily. Namenda 5mg PO daily Begin to taper off risperidal; decrease risperidal to 2mg PO bedtime. 07/21: continue current management and treatment plan. Reason for continued inpatient stay Substantial Risk for: inability to function and rapid decompensation Time Spent With Patient Time: Total time managing care of this patient today ____ minutes.
[2024-07-21 20:00] VITALS: BP 122/56; PULSE 81; RESP 18; TEMP 36.6; O2SAT 98
[2024-07-21] MEDS: Melatonin 3 MG TABLET 6 MG PO (20:21)
[2024-07-21] MEDS: Benztropine Mesylate 0.5 MG TABLET PO (20:21)
[2024-07-21] MEDS: traZODone HCL 25 MG HALFTAB 75 MG PO (20:22)
[2024-07-21] MEDS: risperiDONE 2 MG TABLET PO (20:22)
[2024-07-22 08:37] VITALS: BP 137/60; PULSE 76; RESP 16; TEMP 36.3; O2SAT 98
[2024-07-22] MEDS: Docusate Sodium 100 MG CAPSULE PO ×2 (08:38→20:20)
[2024-07-22] MEDS: Brexpiprazole 1 MG TABLET PO (08:38)
[2024-07-22] MEDS: Memantine HCl 5 MG TABLET PO (08:38)
[2024-07-22] MEDS: Fenofibrate 160 MG TABLET PO (08:39)
[2024-07-22] MEDS: Atorvastatin Calcium 10 MG TABLET PO (08:39)
[2024-07-22] MEDS: Carbidopa/Levodopa 25/100 TABLET 1 TAB PO (08:39)
[2024-07-22] MEDS: Metoprolol Tartrate 25 MG TABLET PO ×2 (08:40→20:20)
--- NOTE | 2024-07-22 14:22 | HO.PSYCHPN ---
Subjective Subjective Date of Service: 07/22/24 Reason For Visit: Crisis Interim History: Tolerating medication changes. No complaints. She is seen in the milieu but isolated most of the time in her room but comes out. Patient reports feeling OK denies SI/HI/VH/AH. Review of Systems Reports system reviewed and no additional complaints, except as documented Cardiovascular: Reports no additional cardiovascular complaints Psychiatric: Reports as per HPI and Reports abnormal sleep pattern Mental Status Exam Mental Status Exam Narrative: Pt is alert and oriented; behavior is cooperative and calm; dressed in casual attire, disheveled; mood is described as okay; eye contact appropriate; Speech is normal rate, volume and not pressured;liner; difficult to engage; no SI/HI/AH/VH expressed. Diagnostics Vital Signs (24Hr): Vital Signs - 24 hr 07/21/24 20:00 07/22/24 08:37 Temperature 97.9 F 97.3 F Pulse Rate 81 76 Respiratory Rate 18 16 Blood Pressure 122/56 L 137/60 Pulse Oximetry 98 98 Oxygen Delivery Method Room Air Room Air BMI result Body Mass Index 19.2 Labs 07/20/24 14:37 07/20/24 14:37 Labs: Laboratory Results - last 48 hr 07/20/24 14:37 WBC 8.2 RBC 4.11 L Hgb 11.8 L Hct 36.9 L MCV 89.8 MCH 28.7 MCHC 32.0 RDW 13.8 Plt Count 256 D MPV 12.5 H Immature Gran % (Auto) 1.3 H Neut % (Auto) 65.0 Lymph % (Auto) 20.6 [place] % (Auto) 9.7 Eos % (Auto) 2.8 Baso % (Auto) 0.6 Lymph # (Auto) 1.7 [place] # (Auto) 0.8 Eos # (Auto) 0.2 Baso # (Auto) 0.1 Abs Immat Gran (auto) 0.11 H Absolute Neuts (auto) 5.3 Absolute Nucleated RBC 0.000 Nucleated RBC % (auto) 0.0 Sodium 140 Potassium 4.1 Chloride 108 Carbon Dioxide 27 Anion Gap 9 L BUN 24 H Creatinine 0.99 Estim Creat Clear Calc 43.4 Estimated GFR 56 Random Glucose 85 Calcium 10.1 Iron 40 TIBC 300 % Saturation 13 L Unsat Iron Binding 260 Total Bilirubin 0.3 Direct Bilirubin 0.1 AST 25 ALT 12 Alkaline Phosphatase 55 Ammonia 63 H Total Protein 6.7 Albumin 3.7 Vitamin B12 289 Folate 6.5 TSH 1.16 Imaging Radiology Impressions: ITS Impressions Hip X-Ray 07/11/24 13:00 IMPRESSION: 1. No acute bony abnormality of either hip joint. Electronically signed by: Felix Zavala MD 07/11/2024 01:41 PM EDT RP Lumbar Spine X-Ray 07/11/24 13:00 IMPRESSION: Multilevel thoracolumbar spondylosis with incomplete ankylosis L4-5 and L5-S1. Electronically signed by: Kamran Salinas MD 07/11/2024 01:38 PM EDT RP Medications Medications Current Medications Acetaminophen (Acetaminophen 325 Mg Tablet) 650 mg PO Q6H PRN PRN Reason: Headache/Pain, Scale 1-10 Last Admin: 07/19/24 10:24 Dose: 650 mg Al Hydroxide/Mg Hydroxide (Magnesium Hydrox/Alum Hydrox 30 Ml Oral.Susp) 30 ml PO Q6H PRN PRN Reason: Heartburn/Nausea Atorvastatin Calcium (Atorvastatin Calcium 10 Mg Tablet) 10 mg PO DAILY [facility] Last Admin: 07/22/24 08:39 Dose: 10 mg Benztropine Mesylate (Benztropine Mesylate 0.5 Mg Tablet) 0.5 mg PO BEDTIME [facility] Last Admin: 07/21/24 20:21 Dose: 0.5 mg Brexpiprazole (Brexpiprazole 1 Mg Tablet) 1 mg PO DAILY [facility] Last Admin: 07/22/24 08:38 Dose: 1 mg Carbidopa/Levodopa (Carbidopa/Levodopa 25/100 Tablet) 1 tab PO DAILY [facility] Last Admin: 07/22/24 08:39 Dose: 1 tab Docusate Sodium (Docusate Sodium 100 Mg Capsule) 100 mg PO BID [facility] Last Admin: 07/22/24 08:38 Dose: 100 mg Fenofibrate (Fenofibrate 160 Mg Tablet) 160 mg PO DAILY [facility] Last Admin: 07/22/24 08:39 Dose: 160 mg Magnesium Hydroxide (Milk Of Magnesia 30 Ml Oral.Susp) 30 ml PO DAILY PRN PRN Reason: Constipation Melatonin (Melatonin 3 Mg Tablet) 6 mg PO BEDTIME [facility] Last Admin: 07/21/24 20:21 Dose: 6 mg Memantine (Memantine Hcl 5 Mg Tablet) 5 mg PO DAILY [facility] Last Admin: 07/22/24 08:38 Dose: 5 mg Metoprolol Tartrate (Metoprolol Tartrate 25 Mg Tablet) 25 mg PO BID [facility]; Protocol Last Admin: 07/22/24 08:40 Dose: 25 mg Risperidone (Risperidone 2 Mg Tablet) 2 mg PO BEDTIME [facility] Last Admin: 07/21/24 20:22 Dose: 2 mg Trazodone HCl (Trazodone Hcl 25 Mg Halftab) 75 mg PO BEDTIME [facility] Last Admin: 07/21/24 20:22 Dose: 75 mg Allergies Allergies Allergy/AdvReac Type Severity Reaction Status Date / Time No Known Allergies Allergy Verified 07/04/24 06:29 Assessment & Plan Assessment & Plan (1) Schizophrenia: Qualifiers: Schizophrenia type: undifferentiated schizophrenia Qualified Code(s): F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 07/05: restart home medications. Referral to outpatient psychiatric providers. Referral for VNA for assistance in medication compliance. Encourage groups. Discharge planning. 07/06: appears suspicious, disheveled, joe. c/o poor sleep, agrees to increase remeron to 15 QHS with repeat PRN. otherwise continue current mgmt. 07/07: c/o insomnia. increase seroquel from 50 mg QHS to 150 mg QHS. seroquel 25 mg PRNs added for agitation/paranoia. otherwise continue current mgmt. 07/08: slept better last night. c/o VH, which is new over the past couple of days, concerned it is a medication effect. MD agrees to decrease remeron back to 7.5 mg QHS. otherwise continue current mgmt. 07/09: Keeping to self. In room most of shift. Patient reports feeling okay today; she reports falling last night d/t her socks being oversized. Observed responding to internal stimuli; pt stated, I thought someone was there but they weren't . denies SI/HI/AH. Ordered Bactrim 1tab Q12HR after receiving urine culture results. Encouraged to attend groups. Awaiting MOCA results. 07/10: UTI-related delirium recently. keflex changed to bactrim due to antimicrobial resistance profile. will monitor MS for improvement over the next several days. continue current regimen otherwise. 07/11: Keeping to self. Patient reports feeling alright today; discussed how police were at her window last night. Pt stated, I think they got something on me . denies SI/HI. Per nursing, she did not sleep last night; however patient reports that she did. Per nursing, had unwitnessed fall this morning. Placed on 1:1 safety checks. Ordered hospitalist consult and head CT. 07/12: head CT and hip/back Xrays NEG. slept better last night and no delusional statements. continues to appear to have perhaps VH this morning, MS not clear. continue current mgmt for now. expectantly waiting for bactrim to resolve UTI and from there resolution of delirium. 07/13: Patient reports feeling okay this morning; did not appear to be responding to internal stimuli. Patient did mention police being at her window last night. She denies SI/HI/VH/AH. denies UTI symptoms; continues on antibiotic. Per nursing, slept 7 hours last night. encouraged to get out of bed; observed pacing unit hallway with walker; continues on 1:1 safety checks. Per nursing, pt had another fall this morning around 0500 in bathroom. Continue current tx plan. 07/17: Continues to lay in bed. encouraged to go for a walk; pt agreed and paced unit hallway with 1:1. She reports feeling alright today. difficult to engage. Patient reports she is no longer seeing police outside my window ; denies SI/HI/VH/AH. Encouraged to attend groups. 07/18: Continues to lay in bed most of shift. Patient reports feeling okay today; responding with short answers. Encouraged to go for a walk; pt agreed and paced unit hallway once with 1:1, then returned to bed. Showered with staff assistance. denies SI/HI/VH/AH. per nursing, slept 7 hours last night. Continue tx plan. 07/19: encouraged to attend groups but declines. Patient reports feeling alright ; responding with short answers. difficult to engage. paced unit hallway once with 1:1, then returned to bed. denies SI/HI/VH/AH. 07/20: Continues to lay in bed most of shift, unless encouraged to get out of bed. continues to decline to attend groups. showered today with staff encouragement and assistance. Patient reports feeling alright ; difficult to engage. denies SI/HI/VH/AH. Start: Rexulti 1mg PO daily. Namenda 5mg PO daily Begin to taper off risperidal; decrease risperidal to 2mg PO bedtime. 07/21: continue current management and treatment plan. 07/22: continue current management and treatment plan. ?ECT Reason for continued inpatient stay Substantial Risk for: harm to self, inability to function, rapid decompensation and med/psych decompensation Time Spent With Patient Time: Total time managing care of this patient today ____ minutes.
[2024-07-22 20:00] VITALS: BP 110/58; PULSE 79; RESP 18; TEMP 36.4; O2SAT 95
[2024-07-22] MEDS: traZODone HCL 25 MG HALFTAB 75 MG PO (20:20)
[2024-07-22] MEDS: risperiDONE 2 MG TABLET PO (20:20)
[2024-07-22] MEDS: Benztropine Mesylate 0.5 MG TABLET PO (20:20)
[2024-07-22] MEDS: Melatonin 3 MG TABLET 6 MG PO (20:20)
[2024-07-23 07:57] VITALS: BP 116/57; PULSE 78; RESP 18; TEMP 36.9; O2SAT 97
[2024-07-23] MEDS: Fenofibrate 160 MG TABLET PO (07:58)
[2024-07-23] MEDS: Metoprolol Tartrate 25 MG TABLET PO ×2 (07:58→20:17)
[2024-07-23] MEDS: Carbidopa/Levodopa 25/100 TABLET 1 TAB PO (07:58)
[2024-07-23] MEDS: Docusate Sodium 100 MG CAPSULE PO ×2 (07:58→20:17)
[2024-07-23] MEDS: Brexpiprazole 1 MG TABLET PO (07:58)
[2024-07-23] MEDS: Atorvastatin Calcium 10 MG TABLET PO (07:58)
[2024-07-23] MEDS: Memantine HCl 5 MG TABLET PO (07:59)
--- NOTE | 2024-07-23 09:37 | HO.PSYCHPN ---
Subjective Subjective Date of Service: 07/23/24 Reason For Visit: Crisis Subjective Notes: Conditional Voluntary Interim History: Pt slept through the night. She was out of her room, ambulating with walker, seems less parkinsonism. She reports she was concern about police being outside of her room but reports she is not concern now. She can't tell when was the last time she saw police outside of the window. She denies SI/HI. Pt presents with poverty of thought, pronounced abulia. concern in terms of her ability to care for herself. She is taking medications as prescribed Labs completed on 07/20 showed elevated ammonia at 63, normal LFTs. repeat ammonia today on 07/24 ammonia 78. Added lactulose 20mg po BID, will monitor ammonia. It is unclear the cause of elevated ammonia as she is not on medication known to cause this. hospitalist consult ordered. Mental Status Exam Mental Status Exam Narrative: Pt is alert and oriented x3, not so much to situation; behavior is cooperative and calm; dressed in casual attire, disheveled; mood is described as okay; eye contact appropriate; Speech is normal rate, volume and not pressured; believes she saw police outside her window; no SI/HI/AH expressed. Appear internally preoccupied Diagnostics Vital Signs (24Hr): Vital Signs - 24 hr 07/22/24 20:00 07/23/24 07:57 Temperature 97.5 F 98.4 F Pulse Rate 79 78 Respiratory Rate 18 18 Blood Pressure 110/58 L 116/57 L Pulse Oximetry 95 97 Oxygen Delivery Method Room Air Room Air BMI result Body Mass Index 19.2 Labs 07/24/24 12:04 07/20/24 14:37 Imaging Radiology Impressions: ITS Impressions Hip X-Ray 07/11/24 13:00 IMPRESSION: 1. No acute bony abnormality of either hip joint. Electronically signed by: Felix Zavala MD 07/11/2024 01:41 PM EDT RP Lumbar Spine X-Ray 07/11/24 13:00 IMPRESSION: Multilevel thoracolumbar spondylosis with incomplete ankylosis L4-5 and L5-S1. Electronically signed by: Kamran Salinas MD 07/11/2024 01:38 PM EDT RP Medications Medications Current Medications Acetaminophen (Acetaminophen 325 Mg Tablet) 650 mg PO Q6H PRN PRN Reason: Headache/Pain, Scale 1-10 Last Admin: 07/19/24 10:24 Dose: 650 mg Al Hydroxide/Mg Hydroxide (Magnesium Hydrox/Alum Hydrox 30 Ml Oral.Susp) 30 ml PO Q6H PRN PRN Reason: Heartburn/Nausea Atorvastatin Calcium (Atorvastatin Calcium 10 Mg Tablet) 10 mg PO DAILY [facility] Last Admin: 07/23/24 07:58 Dose: 10 mg Benztropine Mesylate (Benztropine Mesylate 0.5 Mg Tablet) 0.5 mg PO BEDTIME [facility] Last Admin: 07/22/24 20:20 Dose: 0.5 mg Brexpiprazole (Brexpiprazole 1 Mg Tablet) 1 mg PO DAILY [facility] Last Admin: 07/23/24 07:58 Dose: 1 mg Carbidopa/Levodopa (Carbidopa/Levodopa 25/100 Tablet) 1 tab PO DAILY [facility] Last Admin: 07/23/24 07:58 Dose: 1 tab Docusate Sodium (Docusate Sodium 100 Mg Capsule) 100 mg PO BID [facility] Last Admin: 07/23/24 07:58 Dose: 100 mg Fenofibrate (Fenofibrate 160 Mg Tablet) 160 mg PO DAILY [facility] Last Admin: 07/23/24 07:58 Dose: 160 mg Magnesium Hydroxide (Milk Of Magnesia 30 Ml Oral.Susp) 30 ml PO DAILY PRN PRN Reason: Constipation Melatonin (Melatonin 3 Mg Tablet) 6 mg PO BEDTIME [facility] Last Admin: 07/22/24 20:20 Dose: 6 mg Memantine (Memantine Hcl 5 Mg Tablet) 5 mg PO DAILY [facility] Last Admin: 07/23/24 07:59 Dose: 5 mg Metoprolol Tartrate (Metoprolol Tartrate 25 Mg Tablet) 25 mg PO BID [facility]; Protocol Last Admin: 07/23/24 07:58 Dose: 25 mg Risperidone (Risperidone 2 Mg Tablet) 2 mg PO BEDTIME [facility] Last Admin: 07/22/24 20:20 Dose: 2 mg Trazodone HCl (Trazodone Hcl 25 Mg Halftab) 75 mg PO BEDTIME [facility] Last Admin: 07/22/24 20:20 Dose: 75 mg Allergies Allergies Allergy/AdvReac Type Severity Reaction Status Date / Time No Known Allergies Allergy Verified 07/04/24 06:29 Assessment & Plan Assessment & Plan (1) Schizophrenia: Qualifiers: Schizophrenia type: undifferentiated schizophrenia Qualified Code(s): F20.3 - Undifferentiated schizophrenia Status: Acute Code(s): F20.9 - Schizophrenia, unspecified (2) PTSD (post-traumatic stress disorder): Status: Acute Code(s): F43.10 - Post-traumatic stress disorder, unspecified Plan Ms. Harp is a 68 year-old woman with hx of schizophrenia who was self presented to [facility] reporting difficulty sleeping. She apparently had stopped her medications and had been spending most time in her room. She also presented with paranoid ideas of police following her. While on M3, pt noted to have poor self care, mostly in bed. Her sleep has been fair. She had a UTI, completed course of Bactrim DS. 07/23/2024: Labs completed on 07/20 showed elevated ammonia at 63, normal LFTs. repeat ammonia today on 07/23 ammonia 78. Added lactulose 20mg po BID, will monitor ammonia. It is unclear the cause of elevated ammonia as she is not on medications known to cause this. hospitalist consult ordered. Continue on cross taper from risperidone due to EPS to rexulti. She was also started on namenda for negative symptoms. VS stable. Reason for continued inpatient stay Substantial Risk for: inability to function Time Spent With Patient Time: Total time managing care of this patient today ____ minutes.
[2024-07-23 12:44] LABS: Ammonia 78 umol/L (13-55)
[2024-07-23 12:55] LABS: Alanine Aminotransferase < 6 U/L (0-31); Albumin Level 3.3 g/dL (3.5-5.0); Alkaline Phosphatase 64 U/L (39-117); Aspartate Amino Transferase 22 U/L (5-31); Bilirubin Direct < 0.2 mg/dL (0.0-0.5); Bilirubin Total 0.2 mg/dL (0.0-1.0); Total Protein 5.9 g/dL (6.5-8.0)
[2024-07-23] MEDS: Lactulose 20 GM/30 ML SOLUTION PO ×2 (14:25→20:18)
[2024-07-23 20:00] VITALS: BP 98/54; PULSE 78; RESP 18; TEMP 36.6; O2SAT 97
[2024-07-23] MEDS: Melatonin 3 MG TABLET 6 MG PO (20:17)
[2024-07-23] MEDS: traZODone HCL 25 MG HALFTAB 75 MG PO (20:17)
[2024-07-23] MEDS: risperiDONE 2 MG TABLET PO (20:18)
[2024-07-23] MEDS: Benztropine Mesylate 0.5 MG TABLET PO (20:18)
--- NOTE | 2024-07-24 01:47 | PM.EVENT ---
Event Note Date of Service: 07/24/24 Event Note: Pt is a [id number] admitted to [facility] with hospitalist consult for hyperammonemia. Pt's ammonia was elevated at 63 on 07/20 which increased to 78 on 07/23. Was started on lactulose 20mg bid on 07/23 and received two doses. Pt seen and evaluated in her room where she is resting comfortably in bed. Pt is alert and oriented to self, place, and time, cooperative and responding appropriately. Denies any acute medical complaints: no N/V/D or abdominal pain. Denies history of alcohol use. Abdominal exam benign. Plan: Pt's ammonia elevated at 78 LFTs WNL, pt asymptomatic without encepahlopathy, N/V/D or abd pain Unclear etiology: possibly secondary to risperidone? Has already received lactulose 20g x2, no indication for any additional treatment Can re-check ammonia levels in 48 hours time, though no need if pt continues to be asymptomatic Consider GI consult if pt's ammonia remains elevated and is symptomatic Time Spent With Patient Time: Total time managing care of this patient today ____ minutes.
[2024-07-24 08:51] VITALS: BP 115/63; PULSE 73; RESP 18; TEMP 36.7; O2SAT 97
[2024-07-24] MEDS: Metoprolol Tartrate 25 MG TABLET PO ×2 (08:59→20:39)
[2024-07-24] MEDS: Memantine HCl 5 MG TABLET PO (08:59)
[2024-07-24] MEDS: Carbidopa/Levodopa 25/100 TABLET 1 TAB PO (08:59)
[2024-07-24] MEDS: Atorvastatin Calcium 10 MG TABLET PO (08:59)
[2024-07-24] MEDS: Docusate Sodium 100 MG CAPSULE PO ×2 (08:59→20:39)
[2024-07-24] MEDS: Brexpiprazole 1 MG TABLET PO (08:59)
[2024-07-24 12:08] LABS: MANUAL DIFF FLAG NO
[2024-07-24 12:11] LABS: Basophils Percent Auto 0.3 % (0-2); Eosinophils Absolute Auto 0.2 X10*3/uL (0.0-0.4); Eosinophils Percent Auto 1.6 % (0-4); Hematocrit 36.7 % (37.0-47.0); Hemoglobin 11.5 g/dl (12.0-16.0); Imm Gran Abs Auto 0.11 X10*3/uL (0.00-0.03); Imm Gran Pct Auto 1.2 % (0.0-0.4); Lymphocytes Absolute Auto 1.9 X10*3/uL (1.2-4.9); Lymphocytes Percent Auto 20.1 % (20-40); Mean Corpuscular HGB Conc 31.3 g/dl (31.0-35.0); Mean Corpuscular Hemoglobin 28.2 pg (27.0-33.0); Mean Platelet Volume 11.6 fL (9.4-12.3); Monocytes Absolute Auto 0.9 X10*3/uL (0.1-1.2); Monocytes Percent Auto 9.1 % (2-11); Neutrophils Absolute Auto 6.3 x10*3/uL (2.0-8.3); Neutrophils Percent Auto 67.7 % (45-73); Platelet Count 343 X10*3/uL (160-400); Red Blood Count 4.08 X10*6/uL (4.20-5.50); Red Cell Distribution Width 14.1 % (11.0-16.0); White Blood Count 9.4 X10*3/uL (4.8-10.8)
[2024-07-24 15:07] LABS: Ammonia 45 umol/L (13-55)
--- NOTE | 2024-07-24 16:39 | P.PNPSI_ITS ---
Subjective Subjective Date of Service: 07/24/24 Reason For Visit: Crisis Subjective Notes: Conditional Voluntary Interim History: Pt slept through the night. Pt was out again, ambulating with walker. She reports she is doing well. She reports she has not seen the police outside her window. She denies SI/HI. She has very limited insight into impairments to care for self and why others may be concern about her. poverty of thought. Labs completed on 07/20 showed elevated ammonia at 63, normal LFTs. 07/24 ammonia 45. Review of Systems Reports system reviewed and no additional complaints, except as documented Cardiovascular: Reports no additional cardiovascular complaints Psychiatric: Reports as per HPI and Reports abnormal sleep pattern Mental Status Exam Mental Status Exam Narrative: Pt is alert and oriented x3, not so much to situation; behavior is cooperative and calm; dressed in casual attire, disheveled; mood is described as okay; eye contact appropriate; Speech is normal rate, volume and not pressured; believes she saw police outside her window; no SI/HI/AH expressed. Appear internally preoccupied Memory/cog: MOCA 16/30 (severe impairments in executive function/visuo spatial (0/5), recall (0/5), language fluency (0/1) with intact attention, orientation (except for date/day), naming, abstraction). ACL 4.2 Diagnostics Vital Signs (24Hr): Vital Signs - 24 hr 07/23/24 20:00 07/24/24 08:51 Temperature 97.8 F 98.1 F Pulse Rate 78 73 Respiratory Rate 18 18 Blood Pressure 98/54 L 115/63 Pulse Oximetry 97 97 Oxygen Delivery Method Room Air Room Air BMI result Body Mass Index 19.2 Labs 07/24/24 12:04 07/20/24 14:37 Labs: Laboratory Results - last 48 hr 07/23/24 07/24/24 07/24/24 12:29 12:04 14:56 WBC 9.4 RBC 4.08 L Hgb 11.5 L Hct 36.7 L MCV 90.0 MCH 28.2 MCHC 31.3 RDW 14.1 Plt Count 343 D MPV 11.6 Immature Gran % (Auto) 1.2 H Neut % (Auto) 67.7 Lymph % (Auto) 20.1 [place] % (Auto) 9.1 Eos % (Auto) 1.6 Baso % (Auto) 0.3 Lymph # (Auto) 1.9 [place] # (Auto) 0.9 Eos # (Auto) 0.2 Baso # (Auto) 0.0 Abs Immat Gran (auto) 0.11 H Absolute Neuts (auto) 6.3 Absolute Nucleated RBC 0.000 Nucleated RBC % (auto) 0.0 Total Bilirubin 0.2 Direct Bilirubin < 0.2 AST 22 ALT < 6 Alkaline Phosphatase 64 Ammonia 78 H 45 Total Protein 5.9 L Albumin 3.3 L Imaging Radiology Impressions: ITS Impressions Hip X-Ray 07/11/24 13:00 IMPRESSION: 1. No acute bony abnormality of either hip joint. Electronically signed by: Felix Zavala MD 07/11/2024 01:41 PM EDT RP Lumbar Spine X-Ray 07/11/24 13:00 IMPRESSION: Multilevel thoracolumbar spondylosis with incomplete ankylosis L4-5 and L5-S1. Electronically signed by: Kamran Salinas MD 07/11/2024 01:38 PM EDT RP Medications Medications Current Medications Acetaminophen (Acetaminophen 325 Mg Tablet) 650 mg PO Q6H PRN PRN Reason: Headache/Pain, Scale 1-10 Last Admin: 07/19/24 10:24 Dose: 650 mg Al Hydroxide/Mg Hydroxide (Magnesium Hydrox/Alum Hydrox 30 Ml Oral.Susp) 30 ml PO Q6H PRN PRN Reason: Heartburn/Nausea Atorvastatin Calcium (Atorvastatin Calcium 10 Mg Tablet) 10 mg PO DAILY [facility] Last Admin: 07/24/24 08:59 Dose: 10 mg Benztropine Mesylate (Benztropine Mesylate 0.5 Mg Tablet) 0.5 mg PO BEDTIME [facility] Last Admin: 07/23/24 20:18 Dose: 0.5 mg Brexpiprazole (Brexpiprazole 1 Mg Tablet) 1 mg PO DAILY [facility] Last Admin: 07/24/24 08:59 Dose: 1 mg Carbidopa/Levodopa (Carbidopa/Levodopa 25/100 Tablet) 1 tab PO DAILY [facility] Last Admin: 07/24/24 08:59 Dose: 1 tab Docusate Sodium (Docusate Sodium 100 Mg Capsule) 100 mg PO BID [facility] Last Admin: 07/24/24 08:59 Dose: 100 mg Magnesium Hydroxide (Milk Of Magnesia 30 Ml Oral.Susp) 30 ml PO DAILY PRN PRN Reason: Constipation Melatonin (Melatonin 3 Mg Tablet) 6 mg PO BEDTIME [facility] Last Admin: 07/23/24 20:17 Dose: 6 mg Memantine (Memantine Hcl 5 Mg Tablet) 5 mg PO DAILY [facility] Last Admin: 07/24/24 08:59 Dose: 5 mg Metoprolol Tartrate (Metoprolol Tartrate 25 Mg Tablet) 25 mg PO BID [facility]; Protocol Last Admin: 07/24/24 08:59 Dose: 25 mg Risperidone (Risperidone 2 Mg Tablet) 2 mg PO BEDTIME [facility] Last Admin: 07/23/24 20:18 Dose: 2 mg Trazodone HCl (Trazodone Hcl 25 Mg Halftab) 75 mg PO BEDTIME [facility] Last Admin: 07/23/24 20:17 Dose: 75 mg Allergies Allergies Allergy/AdvReac Type Severity Reaction Status Date / Time No Known Allergies Allergy Verified 07/04/24 06:29 Assessment & Plan Assessment & Plan (1) Schizophrenia: Qualifiers: Schizophrenia type: undifferentiated schizophrenia Qualified Code(s): F 20.3 - Undifferentiated schizophrenia Status: Acute Code(s): F20.9 - Schizophrenia, unspecified (2) PTSD (post-traumatic stress disorder): Status: Acute Code(s): F43.10 - Post-traumatic stress disorder, unspecified Plan Ms. Harp is a 68 year-old woman with hx of schizophrenia who was self presented to [facility] [place] ED reporting difficulty sleeping. She apparently had stopped her medications and had been spending most time in her room. She also presented with paranoid ideas of police following her. While on M3, pt noted to have poor self care, mostly in bed. Her sleep has been fair. She had a UTI, completed course of Bactrim DS. 07/23/2024: Labs completed on 07/20 showed elevated ammonia at 63, normal LFTs. repeat ammonia today on 07/23 ammonia 78. Added lactulose 20mg po BID, will monitor ammonia. It is unclear the cause of elevated ammonia as she is not on medications known to cause this. hospitalist consult ordered. Continue on cross taper from risperidone due to EPS to rexulti. She was also started on namenda for negative symptoms. VS stable. 07/24 ammonia wnl today at 45. d/c lactulose. unclear caused. continue other medications. MOCA 16/30 (severe impairments in executive function/visuo spatial, recall, language fluency with intact attention, orientation, naming, abstraction). ACL 4.2 Reason for continued inpatient stay Substantial Risk for: inability to function Time Spent With Patient Time: Total time managing care of this patient today ____ minutes.
[2024-07-24 20:00] VITALS: BP 103/55; PULSE 69; RESP 16; TEMP 37.2; O2SAT 98
[2024-07-24] MEDS: Benztropine Mesylate 0.5 MG TABLET PO (20:39)
[2024-07-24] MEDS: Melatonin 3 MG TABLET 6 MG PO (20:39)
[2024-07-24] MEDS: traZODone HCL 25 MG HALFTAB 75 MG PO (20:40)
[2024-07-24] MEDS: risperiDONE 2 MG TABLET PO (20:40)
[2024-07-25 08:00] VITALS: BP 100/50; PULSE 67; RESP 16; TEMP 37; O2SAT 95
[2024-07-25] MEDS: Metoprolol Tartrate 25 MG TABLET PO ×2 (09:27→20:37)
[2024-07-25] MEDS: Carbidopa/Levodopa 25/100 TABLET 1 TAB PO (09:27)
[2024-07-25] MEDS: Brexpiprazole 1 MG TABLET PO (09:27)
[2024-07-25] MEDS: Docusate Sodium 100 MG CAPSULE PO ×2 (09:27→20:37)
[2024-07-25] MEDS: Memantine HCl 5 MG TABLET PO (09:27)
[2024-07-25] MEDS: Atorvastatin Calcium 10 MG TABLET PO (09:27)
--- NOTE | 2024-07-25 12:08 | HO.PSYCHPN ---
Subjective Subjective Date of Service: 07/25/24 Reason For Visit: Crisis Subjective Notes: Conditional Voluntary Healthcare Proxy: Yes Interim History: Pt slept through the night, this is 4th night in a row with good sleep. Pt was in her room. She seemed somewhat guarded asking for discharged. informed of family meeting today, but pt after long paused reports she does not want a meeting, when asked to elaborate, reports she will not be in the meeting. Appears internally preoccupied, suspicious. She denies SI/HI. Very limited insight into inability to care for herself. Labs completed on 07/20 showed elevated ammonia at 63, normal LFTs. 07/24 ammonia 45. Review of Systems Reports system reviewed and no additional complaints, except as documented Cardiovascular: Reports no additional cardiovascular complaints Psychiatric: Reports as per HPI and Reports abnormal sleep pattern Mental Status Exam Mental Status Exam Narrative: Pt is alert and oriented x3, not so much to situation; behavior is cooperative and calm; dressed in casual attire, disheveled; mood is described as okay; eye contact appropriate; Speech is normal rate, volume and not pressured; believes she saw police outside her window; no SI/HI/AH expressed. Appear internally preoccupied Memory/cog: MOCA (severe impairments in executive function/visuo spatial (0/5), recall (0/5), language fluency (0/1) with intact attention, orientation (except for date/day), naming, abstraction). ACL 4.2 Diagnostics Vital Signs (24Hr): Vital Signs - 24 hr 07/24/24 20:00 07/25/24 08:00 Temperature 98.9 F 98.6 F Pulse Rate 69 67 Respiratory Rate 16 16 Blood Pressure 103/55 L 100/50 L Pulse Oximetry 98 95 Oxygen Delivery Method Room Air Room Air BMI result Body Mass Index 19.2 Labs 07/24/24 12:04 07/20/24 14:37 Labs: Laboratory Results - last 48 hr 07/23/24 07/24/24 07/24/24 12:29 12:04 14:56 WBC 9.4 RBC 4.08 L Hgb 11.5 L Hct 36.7 L MCV 90.0 MCH 28.2 MCHC 31.3 RDW 14.1 Plt Count 343 D MPV 11.6 Immature Gran % (Auto) 1.2 H Neut % (Auto) 67.7 Lymph % (Auto) 20.1 [place] % (Auto) 9.1 Eos % (Auto) 1.6 Baso % (Auto) 0.3 Lymph # (Auto) 1.9 [place] # (Auto) 0.9 Eos # (Auto) 0.2 Baso # (Auto) 0.0 Abs Immat Gran (auto) 0.11 H Absolute Neuts (auto) 6.3 Absolute Nucleated RBC 0.000 Nucleated RBC % (auto) 0.0 Total Bilirubin 0.2 Direct Bilirubin < 0.2 AST 22 ALT < 6 Alkaline Phosphatase 64 Ammonia 78 H 45 Total Protein 5.9 L Albumin 3.3 L Imaging Radiology Impressions: ITS Impressions Hip X-Ray 07/11/24 13:00 IMPRESSION: 1. No acute bony abnormality of either hip joint. Electronically signed by: Felix Zavala MD 07/11/2024 01:41 PM EDT RP Lumbar Spine X-Ray 07/11/24 13:00 IMPRESSION: Multilevel thoracolumbar spondylosis with incomplete ankylosis L4-5 and L5-S1. Electronically signed by: Kamran Salinas MD 07/11/2024 01:38 PM EDT RP Medications Medications Current Medications Acetaminophen (Acetaminophen 325 Mg Tablet) 650 mg PO Q6H PRN PRN Reason: Headache/Pain, Scale 1-10 Last Admin: 07/19/24 10:24 Dose: 650 mg Al Hydroxide/Mg Hydroxide (Magnesium Hydrox/Alum Hydrox 30 Ml Oral.Susp) 30 ml PO Q6H PRN PRN Reason: Heartburn/Nausea Atorvastatin Calcium (Atorvastatin Calcium 10 Mg Tablet) 10 mg PO DAILY [facility] Last Admin: 07/25/24 09:27 Dose: 10 mg Benztropine Mesylate (Benztropine Mesylate 0.5 Mg Tablet) 0.5 mg PO BEDTIME [facility] Last Admin: 07/24/24 20:39 Dose: 0.5 mg Brexpiprazole (Brexpiprazole 1 Mg Tablet) 1 mg PO DAILY [facility] Last Admin: 07/25/24 09:27 Dose: 1 mg Carbidopa/Levodopa (Carbidopa/Levodopa 25/100 Tablet) 1 tab PO DAILY [facility] Last Admin: 07/25/24 09:27 Dose: 1 tab Docusate Sodium (Docusate Sodium 100 Mg Capsule) 100 mg PO BID [facility] Last Admin: 07/25/24 09:27 Dose: 100 mg Magnesium Hydroxide (Milk Of Magnesia 30 Ml Oral.Susp) 30 ml PO DAILY PRN PRN Reason: Constipation Melatonin (Melatonin 3 Mg Tablet) 6 mg PO BEDTIME [facility] Last Admin: 07/24/24 20:39 Dose: 6 mg Memantine (Memantine Hcl 5 Mg Tablet) 5 mg PO DAILY [facility] Last Admin: 07/25/24 09:27 Dose: 5 mg Metoprolol Tartrate (Metoprolol Tartrate 25 Mg Tablet) 25 mg PO BID [facility]; Protocol Last Admin: 07/25/24 09:27 Dose: 25 mg Risperidone (Risperidone 2 Mg Tablet) 2 mg PO BEDTIME [facility] Last Admin: 07/24/24 20:40 Dose: 2 mg Trazodone HCl (Trazodone Hcl 25 Mg Halftab) 75 mg PO BEDTIME [facility] Last Admin: 07/24/24 20:40 Dose: 75 mg Allergies Allergies Allergy/AdvReac Type Severity Reaction Status Date / Time No Known Allergies Allergy Verified 07/04/24 06:29 Assessment & Plan Assessment & Plan (1) Schizophrenia: Qualifiers: Schizophrenia type: undifferentiated schizophrenia Qualified Code(s): F20.3 - Undifferentiated schizophrenia Status: Acute Code(s): F20.9 - Schizophrenia, unspecified (2) PTSD (post-traumatic stress disorder): Status: Acute Code(s): F43.10 - Post-traumatic stress disorder, unspecified Plan Ms. Harp is a 68 year-old woman with hx of schizophrenia who was self presented to [facility] reporting difficulty sleeping. She apparently had stopped her medications and had been spending most time in her room. She also presented with paranoid ideas of police following her. While on M3, pt noted to have poor self care, mostly in bed. Her sleep has been fair. She had a UTI, completed course of Bactrim DS. 07/23/2024: Labs completed on 07/20 showed elevated ammonia at 63, normal LFTs. repeat ammonia today on 07/23 ammonia 78. Added lactulose 20mg po BID, will monitor ammonia. It is unclear the cause of elevated ammonia as she is not on medications known to cause this. hospitalist consult ordered. Continue on cross taper from risperidone due to EPS to rexulti. She was also started on namenda for negative symptoms. VS stable. 07/24 ammonia wnl today at 45. d/c lactulose. unclear caused. continue other medications. MOCA (severe impairments in executive function/visuo spatial, recall, language fluency with intact attention, orientation, naming, abstraction). ACL 4.2 07/25 continue tx, may increase rexulti 2mg po daily, decrease risperidone to 1mg po qhs. continue namenda. Reason for continued inpatient stay Substantial Risk for: inability to function Time Spent With Patient Time: Total time managing care of this patient today ____ minutes.
[2024-07-25 20:00] VITALS: BP 100/51; PULSE 70; RESP 18; TEMP 37; O2SAT 95
[2024-07-25] MEDS: Benztropine Mesylate 0.5 MG TABLET PO (20:36)
[2024-07-25] MEDS: Melatonin 3 MG TABLET 6 MG PO (20:37)
[2024-07-25] MEDS: risperiDONE 1 MG TABLET PO (20:38)
[2024-07-25] MEDS: traZODone HCL 25 MG HALFTAB 75 MG PO (20:38)
[2024-07-26 07:00] VITALS: BMI 19.5
[2024-07-26 08:20] VITALS: BP 106/65; PULSE 70; RESP 18; TEMP 36.1; O2SAT 98
[2024-07-26] MEDS: Metoprolol Tartrate 25 MG TABLET PO ×2 (08:21→20:51)
[2024-07-26] MEDS: Carbidopa/Levodopa 25/100 TABLET 1 TAB PO (08:22)
[2024-07-26] MEDS: Memantine HCl 5 MG TABLET PO (08:22)
[2024-07-26] MEDS: Atorvastatin Calcium 10 MG TABLET PO (08:22)
[2024-07-26] MEDS: Docusate Sodium 100 MG CAPSULE PO ×2 (08:22→20:52)
[2024-07-26] MEDS: Brexpiprazole 2 MG TABLET PO (08:23)
--- NOTE | 2024-07-26 08:38 | HO.PSYCHPN ---
Subjective Subjective Date of Service: 07/26/24 Reason For Visit: Crisis Subjective Notes: Conditional Voluntary Interim History: Pt slept through the night. She presents as guarded, no behavioral concerns. She reports she does not want to go out to groups, nor to common area. She is ambulating on her own. VS stable. Review of Systems Reports system reviewed and no additional complaints, except as documented Cardiovascular: Reports no additional cardiovascular complaints Psychiatric: Reports as per HPI and Reports abnormal sleep pattern Mental Status Exam Mental Status Exam Narrative: Pt is alert and oriented x3, not so much to situation; behavior is cooperative and calm; dressed in casual attire, disheveled; mood is described as okay; eye contact appropriate; Speech is normal rate, volume and not pressured; believes she saw police outside her window; no SI/HI/AH expressed. Appear internally preoccupied Memory/cog: MOCA (severe impairments in executive function/visuo spatial (0/5), recall (0/5), language fluency (0/1) with intact attention, orientation (except for date/day), naming, abstraction). ACL 4.2 Diagnostics Vital Signs (24Hr): Vital Signs - 24 hr 07/25/24 20:00 07/26/24 08:20 Temperature 98.6 F 96.9 F Pulse Rate 70 70 Respiratory Rate 18 18 Blood Pressure 100/51 L 106/65 Pulse Oximetry 95 98 Oxygen Delivery Method Room Air Room Air BMI result Body Mass Index 19.2 Labs 07/24/24 12:04 07/20/24 14:37 Labs: Laboratory Results - last 48 hr 07/24/24 07/24/24 12:04 14:56 WBC 9.4 RBC 4.08 L Hgb 11.5 L Hct 36.7 L MCV 90.0 MCH 28.2 MCHC 31.3 RDW 14.1 Plt Count 343 D MPV 11.6 Immature Gran % (Auto) 1.2 H Neut % (Auto) 67.7 Lymph % (Auto) 20.1 [place] % (Auto) 9.1 Eos % (Auto) 1.6 Baso % (Auto) 0.3 Lymph # (Auto) 1.9 [place] # (Auto) 0.9 Eos # (Auto) 0.2 Baso # (Auto) 0.0 Abs Immat Gran (auto) 0.11 H Absolute Neuts (auto) 6.3 Absolute Nucleated RBC 0.000 Nucleated RBC % (auto) 0.0 Ammonia 45 Imaging Radiology Impressions: ITS Impressions Hip X-Ray 07/11/24 13:00 IMPRESSION: 1. No acute bony abnormality of either hip joint. Electronically signed by: Felix Zavala MD 07/11/2024 01:41 PM EDT RP Lumbar Spine X-Ray 07/11/24 13:00 IMPRESSION: Multilevel thoracolumbar spondylosis with incomplete ankylosis L4-5 and L5-S1. Electronically signed by: Kamran Salinas MD 07/11/2024 01:38 PM EDT RP Medications Medications Current Medications Acetaminophen (Acetaminophen 325 Mg Tablet) 650 mg PO Q6H PRN PRN Reason: Headache/Pain, Scale 1-10 Last Admin: 07/19/24 10:24 Dose: 650 mg Al Hydroxide/Mg Hydroxide (Magnesium Hydrox/Alum Hydrox 30 Ml Oral.Susp) 30 ml PO Q6H PRN PRN Reason: Heartburn/Nausea Atorvastatin Calcium (Atorvastatin Calcium 10 Mg Tablet) 10 mg PO DAILY [facility] Last Admin: 07/26/24 08:22 Dose: 10 mg Benztropine Mesylate (Benztropine Mesylate 0.5 Mg Tablet) 0.5 mg PO BEDTIME [facility] Last Admin: 07/25/24 20:36 Dose: 0.5 mg Brexpiprazole (Brexpiprazole 2 Mg Tablet) 2 mg PO DAILY [facility] Last Admin: 07/26/24 08:23 Dose: 2 mg Carbidopa/Levodopa (Carbidopa/Levodopa 25/100 Tablet) 1 tab PO DAILY [facility] Last Admin: 07/26/24 08:22 Dose: 1 tab Docusate Sodium (Docusate Sodium 100 Mg Capsule) 100 mg PO BID [facility] Last Admin: 07/26/24 08:22 Dose: 100 mg Magnesium Hydroxide (Milk Of Magnesia 30 Ml Oral.Susp) 30 ml PO DAILY PRN PRN Reason: Constipation Melatonin (Melatonin 3 Mg Tablet) 6 mg PO BEDTIME [facility] Last Admin: 07/25/24 20:37 Dose: 6 mg Memantine (Memantine Hcl 5 Mg Tablet) 5 mg PO DAILY [facility] Last Admin: 07/26/24 08:22 Dose: 5 mg Metoprolol Tartrate (Metoprolol Tartrate 25 Mg Tablet) 25 mg PO BID [facility]; Protocol Last Admin: 07/26/24 08:21 Dose: 25 mg Risperidone (Risperidone 1 Mg Tablet) 1 mg PO BEDTIME [facility] Last Admin: 07/25/24 20:38 Dose: 1 mg Trazodone HCl (Trazodone Hcl 25 Mg Halftab) 75 mg PO BEDTIME [facility] Last Admin: 07/25/24 20:38 Dose: 75 mg Allergies Allergies Allergy/AdvReac Type Severity Reaction Status Date / Time No Known Allergies Allergy Verified 07/04/24 06:29 Assessment & Plan Assessment & Plan (1) Schizophrenia: Qualifiers: Schizophrenia type: undifferentiated schizophrenia Qualified Code(s): F20.3 - Undifferentiated schizophrenia Status: Acute Code(s): F20.9 - Schizophrenia, unspecified (2) PTSD (post-traumatic stress disorder): Status: Acute Code(s): F43.10 - Post-traumatic stress disorder, unspecified Plan Ms. Harp is a 68 year-old woman with hx of schizophrenia who was self presented to [facility] ED reporting difficulty sleeping. She apparently had stopped her medications and had been spending most time in her room. She also presented with paranoid ideas of police following her. While on M3, pt noted to have poor self care, mostly in bed. Her sleep has been fair. She had a UTI, completed course of Bactrim DS. 07/23/2024: Labs completed on 07/20 showed elevated ammonia at 63, normal LFTs. repeat ammonia today on 07/23 ammonia 78. Added lactulose 20mg po BID, will monitor ammonia. It is unclear the cause of elevated ammonia as she is not on medications known to cause this. hospitalist consult ordered. Continue on cross taper from risperidone due to EPS to rexulti. She was also started on namenda for negative symptoms. VS stable. 07/24 ammonia wnl today at 45. d/c lactulose. unclear caused. continue other medications. MOCA (severe impairments in executive function/visuo spatial, recall, language fluency with intact attention, orientation, naming, abstraction). ACL 4.2 07/25 continue tx, may increase rexulti 2mg po daily, decrease risperidone to 1mg po qhs. continue namenda. 07/26 continue tx. Reason for continued inpatient stay Substantial Risk for: inability to function Time Spent With Patient Time: Total time managing care of this patient today ____ minutes.
[2024-07-26 20:00] VITALS: BP 104/58; PULSE 69; RESP 18; TEMP 36.5; O2SAT 95
[2024-07-26] MEDS: traZODone HCL 25 MG HALFTAB 75 MG PO (20:50)
[2024-07-26 20:51] VITALS: BP 104/58; PULSE 69
[2024-07-26] MEDS: Melatonin 3 MG TABLET 6 MG PO (20:51)
[2024-07-26] MEDS: Benztropine Mesylate 0.5 MG TABLET PO (20:52)
[2024-07-26] MEDS: risperiDONE 1 MG TABLET PO (20:52)
[2024-07-27 08:39] VITALS: BP 120/61; PULSE 72; RESP 18; TEMP 37; O2SAT 97
[2024-07-27] MEDS: Carbidopa/Levodopa 25/100 TABLET 1 TAB PO (08:42)
[2024-07-27] MEDS: Brexpiprazole 2 MG TABLET PO (08:42)
[2024-07-27] MEDS: Docusate Sodium 100 MG CAPSULE PO ×2 (08:42→20:08)
[2024-07-27] MEDS: Memantine HCl 5 MG TABLET PO (08:42)
[2024-07-27] MEDS: Metoprolol Tartrate 25 MG TABLET PO ×2 (08:43→20:08)
[2024-07-27] MEDS: Atorvastatin Calcium 10 MG TABLET PO (08:43)
--- NOTE | 2024-07-27 15:23 | HO.PSYCHPN ---
Subjective Subjective Date of Service: 07/27/24 Reason For Visit: Crisis Subjective Notes: Conditional Voluntary Interim History: Pt slept through the night. She is mostly in bed, declines going to groups, somewhat guarded. No SI/HI. ambulating with walker. No behavioral concerns. Medication Compliance: Yes Review of Systems Reports system reviewed and no additional complaints, except as documented Cardiovascular: Reports no additional cardiovascular complaints Psychiatric: Reports as per HPI and Reports abnormal sleep pattern Mental Status Exam Mental Status Exam Narrative: Pt is alert and oriented x3, not so much to situation; behavior is cooperative and calm; dressed in casual attire, disheveled; mood is described as okay; eye contact appropriate; Speech is normal rate, volume and not pressured; believes she saw police outside her window; no SI/HI/AH expressed. Appear internally preoccupied Memory/cog: MOCA (severe impairments in executive function/visuo spatial (0/5), recall (0/5), language fluency (0/1) with intact attention, orientation (except for date/day), naming, abstraction). ACL 4.2 Diagnostics Vital Signs (24Hr): Vital Signs - 24 hr 07/26/24 20:00 07/26/24 20:51 07/27/24 08:39 Temperature 97.7 F 98.6 F Pulse Rate 69 69 72 Respiratory Rate 18 18 Blood Pressure 104/58 L 104/58 L 120/61 Pulse Oximetry 95 97 Oxygen Delivery Method Room Air Room Air BMI result Body Mass Index 19.5 Labs 07/24/24 12:04 07/20/24 14:37 Imaging Radiology Impressions: ITS Impressions Hip X-Ray 07/11/24 13:00 IMPRESSION: 1. No acute bony abnormality of either hip joint. Electronically signed by: Felix Zavala MD 07/11/2024 01:41 PM EDT RP Lumbar Spine X-Ray 07/11/24 13:00 IMPRESSION: Multilevel thoracolumbar spondylosis with incomplete ankylosis L4-5 and L5-S1. Electronically signed by: Kamran Salinas MD 07/11/2024 01:38 PM EDT RP Medications Medications Current Medications Acetaminophen (Acetaminophen 325 Mg Tablet) 650 mg PO Q6H PRN PRN Reason: Headache/Pain, Scale 1-10 Last Admin: 07/19/24 10:24 Dose: 650 mg Al Hydroxide/Mg Hydroxide (Magnesium Hydrox/Alum Hydrox 30 Ml Oral.Susp) 30 ml PO Q6H PRN PRN Reason: Heartburn/Nausea Atorvastatin Calcium (Atorvastatin Calcium 10 Mg Tablet) 10 mg PO DAILY [facility] Last Admin: 07/27/24 08:43 Dose: 10 mg Benztropine Mesylate (Benztropine Mesylate 0.5 Mg Tablet) 0.5 mg PO BEDTIME [facility] Last Admin: 07/26/24 20:52 Dose: 0.5 mg Brexpiprazole (Brexpiprazole 2 Mg Tablet) 2 mg PO DAILY [facility] Last Admin: 07/27/24 08:42 Dose: 2 mg Carbidopa/Levodopa (Carbidopa/Levodopa 25/100 Tablet) 1 tab PO DAILY [facility] Last Admin: 07/27/24 08:42 Dose: 1 tab Docusate Sodium (Docusate Sodium 100 Mg Capsule) 100 mg PO BID [facility] Last Admin: 07/27/24 08:42 Dose: 100 mg Magnesium Hydroxide (Milk Of Magnesia 30 Ml Oral.Susp) 30 ml PO DAILY PRN PRN Reason: Constipation Melatonin (Melatonin 3 Mg Tablet) 6 mg PO BEDTIME [facility] Last Admin: 07/26/24 20:51 Dose: 6 mg Memantine (Memantine Hcl 5 Mg Tablet) 5 mg PO DAILY [facility] Last Admin: 07/27/24 08:42 Dose: 5 mg Metoprolol Tartrate (Metoprolol Tartrate 25 Mg Tablet) 25 mg PO BID [facility]; Protocol Last Admin: 07/27/24 08:43 Dose: 25 mg Risperidone (Risperidone 1 Mg Tablet) 1 mg PO BEDTIME [facility] Last Admin: 07/26/24 20:52 Dose: 1 mg Trazodone HCl (Trazodone Hcl 25 Mg Halftab) 75 mg PO BEDTIME [facility] Last Admin: 07/26/24 20:50 Dose: 75 mg Allergies Allergies Allergy/AdvReac Type Severity Reaction Status Date / Time No Known Allergies Allergy Verified 07/04/24 06:29 Assessment & Plan Assessment & Plan (1) Schizophrenia: Qualifiers: Schizophrenia type: undifferentiated schizophrenia Qualified Code(s): F20.3 - Undifferentiated schizophrenia Status: Acute Code(s): F20.9 - Schizophrenia, unspecified (2) PTSD (post-traumatic stress disorder): Status: Acute Code(s): F43.10 - Post-traumatic stress disorder, unspecified Plan Ms. Harp is a 68 year-old woman with hx of schizophrenia who was self presented to [facility] ED reporting difficulty sleeping. She apparently had stopped her medications and had been spending most time in her room. She also presented with paranoid ideas of police following her. While on M3, pt noted to have poor self care, mostly in bed. Her sleep has been fair. She had a UTI, completed course of Bactrim DS. 07/23/2024: Labs completed on 07/20 showed elevated ammonia at 63, normal LFTs. repeat ammonia today on 07/23 ammonia 78. Added lactulose 20mg po BID, will monitor ammonia. It is unclear the cause of elevated ammonia as she is not on medications known to cause this. hospitalist consult ordered. Continue on cross taper from risperidone due to EPS to rexulti. She was also started on namenda for negative symptoms. VS stable. 07/24 ammonia wnl today at 45. d/c lactulose. unclear caused. continue other medications. MOCA (severe impairments in executive function/visuo spatial, recall, language fluency with intact attention, orientation, naming, abstraction). ACL 4.2 07/25 continue tx, may increase rexulti 2mg po daily, decrease risperidone to 1mg po qhs. continue namenda. 07/26 continue tx. 07/27 continue tx. Reason for continued inpatient stay Substantial Risk for: inability to function Time Spent With Patient Time: Total time managing care of this patient today ____ minutes.
[2024-07-27 19:35] VITALS: BP 117/58; PULSE 66; RESP 18; TEMP 36.4; O2SAT 96
[2024-07-27] MEDS: risperiDONE 1 MG TABLET PO (20:08)
[2024-07-27] MEDS: Melatonin 3 MG TABLET 6 MG PO (20:08)
[2024-07-27] MEDS: Benztropine Mesylate 0.5 MG TABLET PO (20:08)
[2024-07-27] MEDS: traZODone HCL 25 MG HALFTAB 75 MG PO (20:08)
--- NOTE | 2024-07-28 07:32 | P.PNPSI_ITS ---
Subjective Subjective Date of Service: 07/28/24 Reason For Visit: Crisis Subjective Notes: Conditional Voluntary Healthcare Proxy: No Guardianship: No Medical Problems Affecting Mental Status: No Interim History: 68 yo with ongoing rumination, on 5s due to walker, reports trouble sleeping reports new: , flat affect nursing reports slept all night and this is similar to her reports on admission Medication Compliance: Yes Side effects from medications: No Attending Groups: No Review of Systems Acute medical concerns: No Medical Review of Systems: unchanged Mental Status Exam Mental Status Exam Narrative: lying in bed passively - limited engagement Patient Appearance: Unkempt Patient Orientation: Person and Place Level of Consciousness: Awake Mood Description: Apathetic Affect Description: Blunted Patient Cognition Impaired: No Ability to Follow Directions: Fair Speech Pattern: Clear and Impoverished Thought Process: Intact Thought Content: positive for Poverty of Content Depressive Symptoms: Changes in Appetite, Hopelessness and Unhappiness Abnormal Motor Activity Signs and Symptoms: Psychomotor Retardation Judgement: Fair Diagnostics Vital Signs (24Hr): Vital Signs - 24 hr 07/27/24 08:39 07/27/24 19:35 Temperature 98.6 F 97.6 F Pulse Rate 72 66 Respiratory Rate 18 18 Blood Pressure 120/61 117/58 L Pulse Oximetry 97 96 Oxygen Delivery Method Room Air Room Air BMI result Body Mass Index 19.5 Labs 07/24/24 12:04 07/20/24 14:37 Imaging Radiology Impressions: ITS Impressions Hip X-Ray 07/11/24 13:00 IMPRESSION: 1. No acute bony abnormality of either hip joint. Electronically signed by: Felix Zavala MD 07/11/2024 01:41 PM EDT RP Lumbar Spine X-Ray 07/11/24 13:00 IMPRESSION: Multilevel thoracolumbar spondylosis with incomplete ankylosis L4-5 and L5-S1. Electronically signed by: Kamran Salinas MD 07/11/2024 01:38 PM EDT RP Medications Medications Current Medications Acetaminophen (Acetaminophen 325 Mg Tablet) 650 mg PO Q6H PRN PRN Reason: Headache/Pain, Scale 1-10 Last Admin: 07/19/24 10:24 Dose: 650 mg Al Hydroxide/Mg Hydroxide (Magnesium Hydrox/Alum Hydrox 30 Ml Oral.Susp) 30 ml PO Q6H PRN PRN Reason: Heartburn/Nausea Atorvastatin Calcium (Atorvastatin Calcium 10 Mg Tablet) 10 mg PO DAILY [facility] Last Admin: 07/27/24 08:43 Dose: 10 mg Benztropine Mesylate (Benztropine Mesylate 0.5 Mg Tablet) 0.5 mg PO BEDTIME [facility] Last Admin: 07/27/24 20:08 Dose: 0.5 mg Brexpiprazole (Brexpiprazole 2 Mg Tablet) 2 mg PO DAILY [facility] Last Admin: 07/27/24 08:42 Dose: 2 mg Carbidopa/Levodopa (Carbidopa/Levodopa 25/100 Tablet) 1 tab PO DAILY [facility] Last Admin: 07/27/24 08:42 Dose: 1 tab Docusate Sodium (Docusate Sodium 100 Mg Capsule) 100 mg PO BID [facility] Last Admin: 07/27/24 20:08 Dose: 100 mg Magnesium Hydroxide (Milk Of Magnesia 30 Ml Oral.Susp) 30 ml PO DAILY PRN PRN Reason: Constipation Melatonin (Melatonin 3 Mg Tablet) 6 mg PO BEDTIME [facility] Last Admin: 07/27/24 20:08 Dose: 6 mg Memantine (Memantine Hcl 5 Mg Tablet) 5 mg PO DAILY [facility] Last Admin: 07/27/24 08:42 Dose: 5 mg Metoprolol Tartrate (Metoprolol Tartrate 25 Mg Tablet) 25 mg PO BID [facility]; Protocol Last Admin: 07/27/24 20:08 Dose: 25 mg Risperidone (Risperidone 1 Mg Tablet) 1 mg PO BEDTIME [facility] Last Admin: 07/27/24 20:08 Dose: 1 mg Trazodone HCl (Trazodone Hcl 25 Mg Halftab) 75 mg PO BEDTIME [facility] Last Admin: 07/27/24 20:08 Dose: 75 mg Allergies Allergies Allergy/AdvReac Type Severity Reaction Status Date / Time No Known Allergies Allergy Verified 07/04/24 06:29 Assessment & Plan Assessment & Plan (1) Schizophrenia: Qualifiers: Schizophrenia type: undifferentiated schizophrenia Qualified Code(s): F 20.3 - Undifferentiated schizophrenia Status: Acute Code(s): F20.9 - Schizophrenia, unspecified (2) PTSD (post-traumatic stress disorder): Status: Acute Code(s): F43.10 - Post-traumatic stress disorder, unspecified Plan Ms. Harp is a 68 year-old woman with hx of schizophrenia who was self presented to [facility] ED reporting difficulty sleeping. She apparently had stopped her medications and had been spending most time in her room. She also presented with paranoid ideas of police following her. While on M3, pt noted to have poor self care, mostly in bed. Her sleep has been fair. She had a UTI, completed course of Bactrim DS. 07/23/2024: Labs completed on 07/20 showed elevated ammonia at 63, normal LFTs. repeat ammonia today on 07/23 ammonia 78. Added lactulose 20mg po BID, will monitor ammonia. It is unclear the cause of elevated ammonia as she is not on medications known to cause this. hospitalist consult ordered. Continue on cross taper from risperidone due to EPS to rexulti. She was also started on namenda for negative symptoms. VS stable. 07/24 ammonia wnl today at 45. d/c lactulose. unclear caused. continue other medications. MOCA (severe impairments in executive function/visuo spatial, recall, language fluency with intact attention, orientation, naming, abstraction). ACL 4.2 07/25 continue tx, may increase rexulti 2mg po daily, decrease risperidone to 1mg po qhs. continue namenda. 07/26 continue tx. 07/28/24 CTP seems quite limited interms of self care- and cog function Informed Consent: further education needed Reason for continued inpatient stay Substantial Risk for: inability to function and rapid decompensation Time Spent With Patient Time: Total time managing care of this patient today ____ minutes.
[2024-07-28] MEDS: Memantine HCl 5 MG TABLET PO (08:40)
[2024-07-28] MEDS: Atorvastatin Calcium 10 MG TABLET PO (08:40)
[2024-07-28] MEDS: Brexpiprazole 2 MG TABLET PO (08:40)
[2024-07-28] MEDS: Metoprolol Tartrate 25 MG TABLET PO ×2 (08:40→20:15)
[2024-07-28] MEDS: Carbidopa/Levodopa 25/100 TABLET 1 TAB PO (08:40)
[2024-07-28] MEDS: Docusate Sodium 100 MG CAPSULE PO ×2 (08:40→20:15)
[2024-07-28 08:42] VITALS: BP 128/59; PULSE 70; RESP 16; TEMP 36.7; O2SAT 97
[2024-07-28 20:00] VITALS: BP 108/66; PULSE 68; RESP 18; TEMP 36.8; O2SAT 97
[2024-07-28] MEDS: Melatonin 3 MG TABLET 6 MG PO (20:15)
[2024-07-28] MEDS: Benztropine Mesylate 0.5 MG TABLET PO (20:15)
[2024-07-28] MEDS: traZODone HCL 25 MG HALFTAB 75 MG PO (20:15)
[2024-07-28] MEDS: risperiDONE 1 MG TABLET PO (20:15)
--- NOTE | 2024-07-29 07:50 | P.PNPSI_ITS ---
Subjective Subjective Date of Service: 07/29/24 Reason For Visit: Crisis Subjective Notes: Conditional Voluntary Healthcare Proxy: No Guardianship: No Medical Problems Affecting Mental Status: No Interim History: 68 yo with chronic schizophrenia- doing ok - sitting up in tv room today-saying she guesses she is ok to go home that she will have people taking care of her- asked her if she was feeling better than yesterday when she seemed to be somewhat ruminative- She says it wasn't that bad Medication Compliance: Yes Side effects from medications: No Attending Groups: Intermittent Review of Systems Acute medical concerns: No Medical Review of Systems: unchanged Mental Status Exam Mental Status Exam Patient Appearance: Well Grooomed and Appropriate Patient Orientation: Person, Place and Situation Level of Consciousness: Awake Patient Behavior: Appropriate, Cooperative, Passive and Poor Eye Contact Mood Description: Apathetic Affect Description: Blunted Ability to Follow Directions: Fair Speech Pattern: Clear and Impoverished Hallucinations: None Delusions: Not Present Thought Process: Intact Thought Content: positive for [place] and positive for Poverty of Content Depressive Symptoms: Changes in Appetite and Significant Weight Loss Judgement: Fair Diagnostics Vital Signs (24Hr): Vital Signs - 24 hr 07/28/24 08:42 07/28/24 20:00 Temperature 98.1 F 98.2 F Pulse Rate 70 68 Respiratory Rate 16 18 Blood Pressure 128/59 L 108/66 Pulse Oximetry 97 97 Oxygen Delivery Method Room Air Room Air BMI result Body Mass Index 19.5 Labs 07/24/24 12:04 07/20/24 14:37 Imaging Radiology Impressions: ITS Impressions Hip X-Ray 07/11/24 13:00 IMPRESSION: 1. No acute bony abnormality of either hip joint. Electronically signed by: Felix Zavala MD 07/11/2024 01:41 PM EDT RP Lumbar Spine X-Ray 07/11/24 13:00 IMPRESSION: Multilevel thoracolumbar spondylosis with incomplete ankylosis L4-5 and L5-S1. Electronically signed by: Kamran Salinas MD 07/11/2024 01:38 PM EDT RP Medications Medications Current Medications Acetaminophen (Acetaminophen 325 Mg Tablet) 650 mg PO Q6H PRN PRN Reason: Headache/Pain, Scale 1-10 Last Admin: 07/19/24 10:24 Dose: 650 mg Al Hydroxide/Mg Hydroxide (Magnesium Hydrox/Alum Hydrox 30 Ml Oral.Susp) 30 ml PO Q6H PRN PRN Reason: Heartburn/Nausea Atorvastatin Calcium (Atorvastatin Calcium 10 Mg Tablet) 10 mg PO DAILY [facility] Last Admin: 07/28/24 08:40 Dose: 10 mg Benztropine Mesylate (Benztropine Mesylate 0.5 Mg Tablet) 0.5 mg PO BEDTIME [facility] Last Admin: 07/28/24 20:15 Dose: 0.5 mg Brexpiprazole (Brexpiprazole 2 Mg Tablet) 2 mg PO DAILY [facility] Last Admin: 07/28/24 08:40 Dose: 2 mg Carbidopa/Levodopa (Carbidopa/Levodopa 25/100 Tablet) 1 tab PO DAILY [facility] Last Admin: 07/28/24 08:40 Dose: 1 tab Docusate Sodium (Docusate Sodium 100 Mg Capsule) 100 mg PO BID [facility] Last Admin: 07/28/24 20:15 Dose: 100 mg Magnesium Hydroxide (Milk Of Magnesia 30 Ml Oral.Susp) 30 ml PO DAILY PRN PRN Reason: Constipation Melatonin (Melatonin 3 Mg Tablet) 6 mg PO BEDTIME [facility] Last Admin: 07/28/24 20:15 Dose: 6 mg Memantine (Memantine Hcl 5 Mg Tablet) 5 mg PO DAILY [facility] Last Admin: 07/28/24 08:40 Dose: 5 mg Metoprolol Tartrate (Metoprolol Tartrate 25 Mg Tablet) 25 mg PO BID [facility]; Protocol Last Admin: 07/28/24 20:15 Dose: 25 mg Risperidone (Risperidone 1 Mg Tablet) 1 mg PO BEDTIME [facility] Last Admin: 07/28/24 20:15 Dose: 1 mg Trazodone HCl (Trazodone Hcl 25 Mg Halftab) 75 mg PO BEDTIME [facility] Last Admin: 07/28/24 20:15 Dose: 75 mg Allergies Allergies Allergy/AdvReac Type Severity Reaction Status Date / Time No Known Allergies Allergy Verified 07/04/24 06:29 Assessment & Plan Assessment & Plan (1) Schizophrenia: Qualifiers: Schizophrenia type: undifferentiated schizophrenia Qualified Code(s): F 20.3 - Undifferentiated schizophrenia Status: Acute Code(s): F20.9 - Schizophrenia, unspecified (2) PTSD (post-traumatic stress disorder): Status: Acute Code(s): F43.10 - Post-traumatic stress disorder, unspecified Plan MsRush Loyd is a 68 year-old woman with hx of schizophrenia who was self presented to [facility] ED reporting difficulty sleeping. She apparently had stopped her medications and had been spending most time in her room. She also presented with paranoid ideas of police following her. While on M3, pt noted to have poor self care, mostly in bed. Her sleep has been fair. She had a UTI, completed course of Bactrim DS. 07/23/2024: Labs completed on 07/20 showed elevated ammonia at 63, normal LFTs. repeat ammonia today on 07/23 ammonia 78. Added lactulose 20mg po BID, will monitor ammonia. It is unclear the cause of elevated ammonia as she is not on medications known to cause this. hospitalist consult ordered. Continue on cross taper from risperidone due to EPS to rexulti. She was also started on namenda for negative symptoms. VS stable. 07/24 ammonia wnl today at 45. d/c lactulose. unclear caused. continue other medications. MOCA (severe impairments in executive function/visuo spatial, recall, language fluency with intact attention, orientation, naming, abstraction). ACL 4.2 07/25 continue tx, may increase rexulti 2mg po daily, decrease risperidone to 1mg po qhs. continue namenda. 07/26 continue tx. 07/28/24 CTP seems quite limited interms of self care- and cog function 07/29 apparently has supports in place to go home CTP Patient educated on: other (dc planning) Informed Consent: understands Reason for continued inpatient stay Substantial Risk for: inability to function and rapid decompensation Time Spent With Patient Time: Total time managing care of this patient today ____ minutes.
[2024-07-29 08:04] VITALS: BP 112/67; PULSE 70; RESP 16; TEMP 36.7; O2SAT 98
[2024-07-29] MEDS: Memantine HCl 5 MG TABLET PO (08:04)
[2024-07-29] MEDS: Docusate Sodium 100 MG CAPSULE PO ×2 (08:04→20:21)
[2024-07-29] MEDS: Brexpiprazole 2 MG TABLET PO (08:06)
[2024-07-29] MEDS: Carbidopa/Levodopa 25/100 TABLET 1 TAB PO (08:06)
[2024-07-29] MEDS: Atorvastatin Calcium 10 MG TABLET PO (08:06)
[2024-07-29] MEDS: Metoprolol Tartrate 25 MG TABLET PO ×2 (08:06→20:21)
[2024-07-29 20:00] VITALS: BP 102/60; PULSE 63; RESP 18; TEMP 36.6; O2SAT 99
[2024-07-29] MEDS: Benztropine Mesylate 0.5 MG TABLET PO (20:21)
[2024-07-29] MEDS: Acetaminophen 325 MG TABLET 650 MG PO (20:21)
[2024-07-29] MEDS: traZODone HCL 25 MG HALFTAB 75 MG PO (20:21)
[2024-07-29] MEDS: Melatonin 3 MG TABLET 6 MG PO (20:21)
[2024-07-29] MEDS: risperiDONE 1 MG TABLET PO (20:21)
[2024-07-30 09:13] VITALS: BP 111/55; PULSE 66; RESP 18; TEMP 36.7; O2SAT 99
[2024-07-30] MEDS: Memantine HCl 5 MG TABLET PO (09:15)
[2024-07-30] MEDS: Docusate Sodium 100 MG CAPSULE PO (09:15)
[2024-07-30] MEDS: Carbidopa/Levodopa 25/100 TABLET 1 TAB PO (09:16)
[2024-07-30] MEDS: Atorvastatin Calcium 10 MG TABLET PO (09:17)
[2024-07-30] MEDS: Brexpiprazole 2 MG TABLET PO (09:17)
[2024-07-30] MEDS: Metoprolol Tartrate 25 MG TABLET PO ×2 (09:17→21:59)
--- NOTE | 2024-07-30 09:47 | P.PNPSI_ITS ---
Subjective Subjective Date of Service: 07/30/24 Reason For Visit: Crisis Subjective Notes: Conditional Voluntary Interim History: Pt slept through the night. She is taking medications as prescribed. She did go to groups over the weekend. No SI/HI. No overt psychosis or delusions, poverty of thought noted. No behavioral concerns. Review of Systems Reports system reviewed and no additional complaints, except as documented Cardiovascular: Reports no additional cardiovascular complaints Psychiatric: Reports as per HPI and Reports abnormal sleep pattern Mental Status Exam Mental Status Exam Narrative: Pt is alert and oriented x3, not so much to situation; behavior is cooperative and calm; dressed in casual attire, disheveled; mood is described as okay; eye contact appropriate; Speech is normal rate, volume and not pressured; believes she saw police outside her window; no SI/HI/AH expressed. Appear internally preoccupied Memory/cog: MOCA (severe impairments in executive function/visuo spatial (0/5), recall (0/5), language fluency (0/1) with intact attention, orientation (except for date/day), naming, abstraction). ACL 4.2 Diagnostics Vital Signs (24Hr): Vital Signs - 24 hr 07/29/24 20:00 07/30/24 09:13 Temperature 97.8 F 98.1 F Pulse Rate 63 66 Respiratory Rate 18 18 Blood Pressure 102/60 111/55 L Pulse Oximetry 99 99 Oxygen Delivery Method Room Air Room Air BMI result Body Mass Index 19.5 Labs 07/24/24 12:04 07/20/24 14:37 Imaging Radiology Impressions: ITS Impressions Hip X-Ray 07/11/24 13:00 IMPRESSION: 1. No acute bony abnormality of either hip joint. Electronically signed by: Felix Zavala MD 07/11/2024 01:41 PM EDT RP Lumbar Spine X-Ray 07/11/24 13:00 IMPRESSION: Multilevel thoracolumbar spondylosis with incomplete ankylosis L4-5 and L5-S1. Electronically signed by: Kamran Salinas MD 07/11/2024 01:38 PM EDT RP Medications Medications Current Medications Acetaminophen (Acetaminophen 325 Mg Tablet) 650 mg PO Q6H PRN PRN Reason: Headache/Pain, Scale 1-10 Last Admin: 07/29/24 20:21 Dose: 650 mg Al Hydroxide/Mg Hydroxide (Magnesium Hydrox/Alum Hydrox 30 Ml Oral.Susp) 30 ml PO Q6H PRN PRN Reason: Heartburn/Nausea Atorvastatin Calcium (Atorvastatin Calcium 10 Mg Tablet) 10 mg PO DAILY [facility] Last Admin: 07/30/24 09:17 Dose: 10 mg Benztropine Mesylate (Benztropine Mesylate 0.5 Mg Tablet) 0.5 mg PO BEDTIME [facility] Last Admin: 07/29/24 20:21 Dose: 0.5 mg Brexpiprazole (Brexpiprazole 2 Mg Tablet) 2 mg PO DAILY [facility] Last Admin: 07/30/24 09:17 Dose: 2 mg Carbidopa/Levodopa (Carbidopa/Levodopa 25/100 Tablet) 1 tab PO DAILY [facility] Last Admin: 07/30/24 09:16 Dose: 1 tab Docusate Sodium (Docusate Sodium 100 Mg Capsule) 100 mg PO BID [facility] Last Admin: 07/30/24 09:15 Dose: 100 mg Magnesium Hydroxide (Milk Of Magnesia 30 Ml Oral.Susp) 30 ml PO DAILY PRN PRN Reason: Constipation Melatonin (Melatonin 3 Mg Tablet) 6 mg PO BEDTIME [facility] Last Admin: 07/29/24 20:21 Dose: 6 mg Memantine (Memantine Hcl 5 Mg Tablet) 5 mg PO DAILY [facility] Last Admin: 07/30/24 09:15 Dose: 5 mg Metoprolol Tartrate (Metoprolol Tartrate 25 Mg Tablet) 25 mg PO BID [facility]; Protocol Last Admin: 07/30/24 09:17 Dose: 25 mg Risperidone (Risperidone 1 Mg Tablet) 1 mg PO BEDTIME [facility] Last Admin: 07/29/24 20:21 Dose: 1 mg Trazodone HCl (Trazodone Hcl 25 Mg Halftab) 75 mg PO BEDTIME [facility] Last Admin: 07/29/24 20:21 Dose: 75 mg Allergies Allergies Allergy/AdvReac Type Severity Reaction Status Date / Time No Known Allergies Allergy Verified 07/04/24 06:29 Assessment & Plan Assessment & Plan (1) Schizophrenia: Qualifiers: Schizophrenia type: undifferentiated schizophrenia Qualified Code(s): F 20.3 - Undifferentiated schizophrenia Status: Acute Code(s): F20.9 - Schizophrenia, unspecified (2) PTSD (post-traumatic stress disorder): Status: Acute Code(s): F43.10 - Post-traumatic stress disorder, unspecified Plan Ms. Harp is a 68 year-old woman with hx of schizophrenia who was self presented to [facility] ED reporting difficulty sleeping. She apparently had stopped her medications and had been spending most time in her room. She also presented with paranoid ideas of police following her. While on M3, pt noted to have poor self care, mostly in bed. Her sleep has been fair. She had a UTI, completed course of Bactrim DS. 07/23/2024: Labs completed on 07/20 showed elevated ammonia at 63, normal LFTs. repeat ammonia today on 07/23 ammonia 78. Added lactulose 20mg po BID, will monitor ammonia. It is unclear the cause of elevated ammonia as she is not on medications known to cause this. hospitalist consult ordered. Continue on cross taper from risperidone due to EPS to rexulti. She was also started on namenda for negative symptoms. VS stable. 07/24 ammonia wnl today at 45. d/c lactulose. unclear caused. continue other medications. MOCA (severe impairments in executive function/visuo spatial, recall, language fluency with intact attention, orientation, naming, abstraction). ACL 4.2 07/25 continue tx, may increase rexulti 2mg po daily, decrease risperidone to 1mg po qhs. continue namenda. 07/26 continue tx. 07/27 continue tx. 07/30 continue tx. plan for d/c on 07/31 Reason for continued inpatient stay Substantial Risk for: inability to function Time Spent With Patient Time: Total time managing care of this patient today ____ minutes.
[2024-07-30] MEDS: clonazePAM 0.5 MG TABLET PO (12:15)
[2024-07-30] MEDS: Acetaminophen 325 MG TABLET 650 MG PO (15:21)
[2024-07-30 20:00] VITALS: BP 107/53; PULSE 62; RESP 18; TEMP 36.3; O2SAT 97
[2024-07-30] MEDS: Melatonin 3 MG TABLET 6 MG PO (20:34)
[2024-07-30] MEDS: Benztropine Mesylate 0.5 MG TABLET PO (20:34)
[2024-07-30] MEDS: traZODone HCL 25 MG HALFTAB 75 MG PO (20:35)
[2024-07-31 08:30] VITALS: BP 102/63; PULSE 65; RESP 16; TEMP 36.6; O2SAT 98
[2024-07-31] MEDS: Carbidopa/Levodopa 25/100 TABLET 1 TAB PO (08:59)
[2024-07-31] MEDS: Brexpiprazole 2 MG TABLET PO (08:59)
[2024-07-31] MEDS: Memantine HCl 5 MG TABLET PO (08:59)
[2024-07-31] MEDS: Atorvastatin Calcium 10 MG TABLET PO (09:00)
[2024-07-31] MEDS: Metoprolol Tartrate 25 MG TABLET PO (09:00)
--- NOTE | 2024-07-31 09:58 | PM.PSYDC ---
DS: Providers Provider Date of Service: 07/31/24 Date of admission: 07/05/24 11:01 Date of discharge: 07/31/24 Primary care physician: Luciana Winters MD Consults: 07/11/24 12:08 Consult to Hospitalist Routine Comment: Consulting Provider: [facility] Hospitalists Reason For Exam: fell in room; 2nd fall this admission 07/23/24 14:35 Consult to Hospitalist Routine Comment: Consulting Provider: [facility] Hospitalists Reason For Exam: hyperammonia unclear cause DS: Diagnosis Discharge Diagnosis (1) Schizophrenia: Status: Acute (2) PTSD (post-traumatic stress disorder): Status: Acute DS: Medications Discharge Medications Home Medications: Previous Rx's ?Medication ?Instructions ?Recorded brexpiprazole 2 mg tablet (Rexulti) 2 mg PO DAILY #30 tabs 07/30/24 alendronate 70 mg tablet 70 mg PO FR #4 tabs 07/31/24 benztropine 0.5 mg tablet 0.5 mg PO BEDTIME #30 tabs 07/31/24 carbidopa 25 mg-levodopa 100 mg 1 tab PO DAILY #30 tabs 07/31/24 tablet melatonin 3 mg tablet 6 mg (2 x 3 mg) PO BEDTIME #60 tabs 07/31/24 memantine 5 mg tablet 5 mg PO DAILY #30 tabs 07/31/24 metoprolol tartrate 25 mg tablet 25 mg PO BID #60 tabs 07/31/24 sennosides 8.6 mg-docusate sodium 1 tab PO BID PRN Constipation #60 07/31/24 50 mg tablet (Senna Plus) tabs simvastatin 20 mg tablet 20 mg PO BEDTIME #30 tabs 07/31/24 trazodone 100 mg tablet 100 mg PO BEDTIME #30 tabs 07/31/24 Mental Status Exam Mental Status Exam Narrative: Pt is alert and oriented x3, not so much to situation; behavior is cooperative and calm; dressed in casual attire, disheveled; mood is described as okay; eye contact appropriate; Speech is normal rate, volume and not pressured; believes she saw police outside her window; no SI/HI/AH expressed. Appear internally preoccupied Memory/cog: MOCA (severe impairments in executive function/visuo spatial (0/5), recall (0/5), language fluency (0/1) with intact attention, orientation (except for date/day), naming, abstraction). ACL 4.2 Data Data Completed and Pending Completed studies during hospitalization [Text1]: 07/24/24 07/24/24 12:04 14:56 WBC 9.4 RBC 4.08 L Hgb 11.5 L Hct 36.7 L MCV 90.0 MCH 28.2 MCHC 31.3 RDW 14.1 Plt Count 343 D MPV 11.6 Immature Gran % (Auto) 1.2 H Neut % (Auto) 67.7 Lymph % (Auto) 20.1 [place] % (Auto) 9.1 Eos % (Auto) 1.6 Baso % (Auto) 0.3 Lymph # (Auto) 1.9 [place] # (Auto) 0.9 Eos # (Auto) 0.2 Baso # (Auto) 0.0 Abs Immat Gran (auto) 0.11 H Absolute Neuts (auto) 6.3 Absolute Nucleated RBC 0.000 Nucleated RBC % (auto) 0.0 Ammonia 45 07/15/24 16:10 Urine clean catch - Clean Catch Midstream Urine Culture - Final No growth. 07/04/24 Unknown Urine clean catch - Clean Catch Midstream Urine Culture - Final Escherichia coli Imaging Diagnostic Imaging Impressions Hip X-Ray 07/11/24 13:00 IMPRESSION: 1. No acute bony abnormality of either hip joint. Electronically signed by: Felix Zavala MD 07/11/2024 01:41 PM EDT RP Lumbar Spine X-Ray 07/11/24 13:00 IMPRESSION: Multilevel thoracolumbar spondylosis with incomplete ankylosis L4-5 and L5-S1. Electronically signed by: Kamran Salinas MD 07/11/2024 01:38 PM EDT RP DS: Summary Hospital Course Hospital Course: Patient is a 68-year-old female with history of schizophrenia and PTSD who self presented to ER due to poor sleep secondary to medication noncompliance. Per crisis report, patient self presented reporting poor sleep and that something is wrong with her eyes. Patient reports she has been medication noncompliant. She reports missing her prescriber appointment in April 2024 and losing her prescriber. Patient's roommate reports he does not believe patient has been taking her medications for months. Patient appeared anxious, disheveled, some confusion. Patient denies SI/HI/VH/AH. She does not appear to be responding to internal stimuli. Roommate reports patient has been pacing and restless throughout the home and has not been sleeping. History of psychiatric admissions. Denies any substance use. Utox negative. During admission assessment, patient presents alert and oriented x3. calm and cooperative. Patient reports she has been unable to sleep for few days; patient stated, I can't sleep. I haven't been taking medications since April. My doctor doesn't know that I don't take them anymore . Appears thought blocking at times. Patient reports she would like help restarting her medications and being able to sleep. She reports having psychiatric providers through [facility] but states she no longer is connected. Denies SI/HI/VH/AH. Past Psychiatric History: History of inpatient psychiatric hospitalizations. Does not have outpatient psychiatric providers. hx of providers with [facility]. History of SIB via superficial cutting in 2022. Medical Evaluation Reviewed: Yes HOSPITAL COURSE On the unit, pt was admitted on a CV and placed on 5 minutes checks for safety. Pt presented with unsteady gait, needing walker due to risk for falls. She also presented with paranoid ideas thinking police was outside the door looking for her. She appeared internally preoccupied. She denied suicidal or homicidal ideation throughout hospital stay. Pt did not show any signs of aggression towards self or others. She was mostly in her room with minimal engagement with peers. Pt presents with mostly negative symptoms of schizophrenia including difficulty initiating activities (abulia), socially withdrawn and illogical train of thought (connecting unrelated situation or events). She had minimal to no insight into these impairments. 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 She had been on sinemet 25/100 BID, which was decrease to daily in effort to balance exacerbation of psychosis and movement disorder control. She was switched from risperidone total of 3mg/day as higher doses of this high potency antipsychotic will worsen movement disorder, to rexulti. She tolerated rexulti well, which was increased to 2mg po daily. She was also started on namenda for negative symptoms of schizophrenia. She was started on trazodone for sleep, which was titrated to 100mg po qhs. She was taken off remeron for sleep given that it was not effective. She was slightly more visible on the unit and walked with the walker. She seemed more agreeable to complete hygiene care. She had cognitive/memory assessments while on the unit. MOCA 16/30 (severe impairments in executive function/visuo spatial (0/5), recall (0/5), language fluency (0/1) with intact attention, orientation (except for date/day), naming, abstraction). ACL 4.2 showing moderate cognitive impairments. We had family meeting with Ms. Hapr's daughter and explained clinical assessments and medication trials. Pt agreed to have [facility] come and help with medication management. Medically, she was initially treated for UTI on Bactrim. No futher medical complications during this admission. Status at Discharge Cognitive/behavioral status at discharge: Pt with constricted affect. No SI/HI. No overt delusional content, but pt is suspicious. Suspect also residual psychosis but pt may not be forthcoming. No aggression towards self or others. Functional status at discharge: uses cane/walker Overall status at discharge: patient is progressing back to baseline Time Spent with Patient Time attestation: Total time managing care of this patient today ____ minutes. Discharge Plan Discharge Anticipated Discharge Date/Time: 07/31/24 09:51 Patient Disposition: Home, Self-Care Discharge Diagnosis: schizophrenia Referrals: Clinical and Support Options Ford Yanez therapist [Other] - 1 Week (A message was left with Ford asking him to call you to schedule your next therapy appointment ) [facility] [Other] - 08/01/24 (You will have [facility] caring for visiting nurses to provide daily medication management, and PT/OT services. ) [facility] Support [facility]-Loree Noguera NP [Other] - 08/08/24 1:00 pm (Appointment is in person at the office ) [facility] [Other] - 2 Weeks (You have been referred for state home care with [facility] and they will contact for home visit for assessment. ) Luciana Winters MD [Primary Care Provider] - 1 Week (Patient requested to go to her already scheduled appointment and did not want hospital follow up appointment. ) Discharge Medications: New Rexulti 2 mg Tablet 2 mg PO DAILY Qty: 30 0RF benztropine 0.5 mg Tablet 0.5 mg PO BEDTIME Qty: 30 0RF carbidopa-levodopa 25-100 mg Tablet 1 tab PO DAILY Qty: 30 0RF memantine 5 mg Tablet 5 mg PO DAILY Qty: 30 0RF metoprolol tartrate 25 mg Tablet 25 mg PO BID Qty: 60 0RF Protocol: Hold for SBP/HR < HOLD for SBP < : 90 HOLD for HR < : 60 trazodone 100 mg tablet 100 mg PO BEDTIME Qty: 30 0RF sennosides-docusate sodium [Senna Plus] 8.6-50 mg Tablet 1 tab PO BID PRN (Reason: Constipation) Qty: 60 0RF melatonin 3 mg Tablet 6 mg PO BEDTIME Qty: 60 0RF Continued alendronate 70 mg tablet 70 mg PO FR Qty: 4 0RF simvastatin 20 mg tablet 20 mg PO BEDTIME Qty: 30 0RF Discontinued metoprolol tartrate 25 mg tablet 25 mg PO BID fenofibrate 160 mg tablet 160 mg PO DAILY benztropine 0.5 mg tablet 0.5 mg PO BID carbidopa-levodopa 25-100 mg tablet 1 tab PO BID risperidone 1 mg tablet 1 mg PO DAILY mirtazapine 7.5 mg tablet 7.5 mg PO BEDTIME quetiapine 50 mg tablet 50 mg PO BEDTIME risperidone 2 mg tablet 2 mg PO BEDTIME Discharge Orders: Discharge Order (Routine); Ordered 07/31/24 Ordered By: Demi Morales Diet: Regular diet Activity on Discharge: Use cane or walker Stand Alone Forms: Patient Portal Discharge page Print Language: Belgian Care Plan Goals: 1. Maintain mood 2. No SI/HI 3. Less paranoid delusions 4. No aggression towards self or others Health Concerns: Follow up with PCP for routine care Plan of Treatment: 1. take medications as prescribed 2. Go to nearest ED or call 911 in event of emergency Assessment: Pt with constricted affect at baseline. No SI/HI. No overt delusional content. Sleeping and eating well. No aggression towards self or others.
== END 2024-07-31 11:20 | disposition home or self-care (01) | DRG 885 ==
LOC: HO.ED 12:27 → HO.PADLT16 07-05 11:11 → HO.PGERI 07-20 11:51 → HO.PADLT16 07-20 12:04 → HO.PGERI 07-20 15:37
PROVIDERS: Psychiatry & Neurology Psychiatry; Social Worker; Admitting Provider Registered Nurse; Emergency Provider Emergency Medicine; PCP Family Medicine; Visit Provider Psychiatry & Neurology Psychiatry
DX: F20.0 Paranoid schizophrenia (principal); N39.0 Urinary tract infection, site not specified; E72.20 Disorder of urea cycle metabolism, unspecified; F43.10 Post-traumatic stress disorder, unspecified; I10 Essential (primary) hypertension; E78.5 Hyperlipidemia, unspecified; G20.C Parkinsonism, unspecified; M54.59 Other low back pain; W19.XXXA Unspecified fall, initial encounter; Y92.231 Patient bathroom in hospital as the place of occurrence of the external cause; Z91.148 Patient's other noncompliance with medication regimen for other reason; Z79.899 Other long term (current) drug therapy
CPT/HCPCS: 36415; 70450; 72100; 73522; 80048; 80053; 80061; 80076; 80307; 81001; 82140; 82607; 82746; 83036; 83540; 84443; 85025; 87086; 87088; 87186; 93005; 97116; 97162; 99285; S9485

== ENCOUNTER → 2024-07-04 14:06 | Outpatient (BNV) | payer MEDICARE, MEDICAID, SELFPAY | PROVIDERS: Emergency Provider Emergency Medicine; PCP Family Medicine; Visit Provider Internal Medicine Cardiovascular Disease | DX: Z13.6 Encounter for screening for cardiovascular disorders (principal) | CPT/HCPCS: 93010 ==

== ENCOUNTER 2024-07-05 11:01 | Outpatient (BNV) | payer MEDICARE, MEDICAID, SELFPAY | END 2024-07-11 13:00 | PROVIDERS: Admitting Provider Registered Nurse; Emergency Provider Emergency Medicine; PCP Family Medicine; Responsible Provider Registered Nurse; Visit Provider Radiology Diagnostic Radiology | DX: M54.50 Low back pain, unspecified (principal); M47.896 Other spondylosis, lumbar region; W19.XXXA Unspecified fall, initial encounter | CPT/HCPCS: 72100; 73522 ==

== ENCOUNTER → 2024-07-05 11:01 | Outpatient (BNV) | payer MEDICARE, MEDICAID, SELFPAY | PROVIDERS: Admitting Provider Registered Nurse; Emergency Provider Emergency Medicine; PCP Family Medicine; Responsible Provider Registered Nurse; Visit Provider Psychiatry & Neurology Psychiatry | DX: F20.3 Undifferentiated schizophrenia (principal); F43.11 Post-traumatic stress disorder, acute | CPT/HCPCS: 90792; 99232 ==

== ENCOUNTER 2024-08-15 11:00 | Outpatient (REF) | payer MEDICARE, MEDICAID, SELFPAY ==
--- OUTSIDE RECORDS SUMMARY | 2024-08-15 12:24 | XMS_ITS | Encounter Summary ---
Author Organization [facility] Address [address] [place] [address] Care Team Providers Care Census Taker Name Role Phone Simon Katz MD Primary Care Provider [phone] Encounter Details Date Type Department Care Team (Late st Contact Info) Description 03/20/2024 Lab Requisition [facility] - Main Lab [address] [facility] [place] [address] Simon Katz MD [address] [facility] [address], [phone] Essential (primary) hypertension Social History Tobacco Use [...] hypertension documented in this encounter Care Teams Census Taker Relationship Specialty Start Date End Date Simon Katz MD [address] [facility] [address], [phone] PCP - General Family Medicine 02/03/24 documented as of this encounter
--- OUTSIDE RECORDS SUMMARY | 2024-08-15 12:25 | XMS_ITS | Encounter Summary ---
Author Organization [facility] Address [address] [place] [address] Care Team Providers Care Hem Marker Name Role Phone Simon Katz MD Primary Care Provider [phone] Encounter Details Date Type Department Care Team (Late st Contact Info) Description 02/03/2024 Lab Requisition [facility] - Main Lab [address] [place] [address] Simon Katz MD [address] [place] [address] [address] [place], [phone] Essential (primary) hypertension Social History Tobacco [...] LAB CHEMISTRY METHOD 02/06/2024 11:02 AM EST [facility] Potassium 3.9 3.5 - 5.5 mmol/L LAB CHEMISTRY METHOD 02/06/2024 11:02 AM EST [facility] Chloride 114(H) 96 - 110 mmol/L LAB CHEMISTRY METHOD 02/06/2024 11:02 AM [facility] CO2 26 21 - 32 mmol/L LAB CHEMISTRY METHOD 02/06/2024 11:02 AM [facility] Anion Gap 6 3 - 11 LAB CHEMISTRY METHOD 02/06/2024 11:02 AM [facility] Glucose 70 70 - 100 mg/dL LAB CHEMISTRY METHOD 02/06/2024 11:02 AM [facility] BUN 20 5 - 25 mg/dL LAB CHEMISTRY METHOD 02/06/2024 11:02 AM [facility] Creatinine 0.72 0.50 - 1.10 mg/dL LAB CHEMISTRY METHOD 02/06/2024 11:02 AM [facility] eGFR 91 >=60 mL/min/1. 73m2 LAB CHEMISTRY METHOD 02/06/2024 11:02 AM [facility] Comment:Calculation based on the??Chronic Kidney Disease Epidemiology Collaboration (CKD-EPI) equation refit??without adjustment for race. BUN/Creatinine Ratio 27.8 LAB CHEMISTRY METHOD 02/06/2024 11:02 AM [facility] Calcium 8.9 8.5 - 10.5 mg/dL LAB CHEMISTRY METHOD 02/06/2024 11:02 AM [facility] Blood Venous blood specimen / Unknown Venipuncture / Unknown 02/06/2024 5:47 AM EST 02/06/2024 9:44 AM EST us Simon Katz MD LAB BLOOD ORDERABLES Final Resul t [facility] [address] [place] [address], documented in this encounter Visit Diagnoses Diagnosis Essential (primary) hypertension Unspecified essential hypertension documented in this encounter Care Teams Hem Marker Relationship Specialty Start Date End Date Simon Katz MD [address] [place] [address], [phone] PCP - General Family Medicine 02/03/24 documented as of this encounter
--- OUTSIDE RECORDS SUMMARY | 2024-08-15 12:25 | XMS_ITS | Encounter Summary ---
Author Organization [facility] Address [address] [place] [address] Care Team Providers Care Metal Fabrication Supervisor Name Role Phone Simon Katz MD Primary Care Provider [phone] Encounter Details Date Type Department Care Team (Late st Contact Info) Description 02/29/2024 Lab Requisition [facility] - Main Lab [address] [place] [address] Simon Katz MD [address] [place] [address] [address] [place], [phone] Parkinsonism, unspecified (CMS/HCC V24, CMS/HCC V28) Social History Tobacco Use Types Packs/Day Years [...] LAB CHEMISTRY METHOD 02/29/2024 12:14 PM EST [facility] Potassium 4.3 3.5 - 5.5 mmol/L LAB CHEMISTRY METHOD 02/29/2024 12:14 PM EST [facility] Chloride 112(H) 96 - 110 mmol/L LAB CHEMISTRY METHOD 02/29/2024 12:14 PM [facility] CO2 25 21 - 32 mmol/L LAB CHEMISTRY METHOD 02/29/2024 12:14 PM [facility] Anion Gap 7 3 - 11 LAB CHEMISTRY METHOD 02/29/2024 12:14 PM [facility] Glucose 66(L) 70 - 100 mg/dL LAB CHEMISTRY METHOD 02/29/2024 12:14 PM [facility] BUN 23 5 - 25 mg/dL LAB CHEMISTRY METHOD 02/29/2024 12:14 PM [facility] Creatinine 0.74 0.50 - 1.10 mg/dL LAB CHEMISTRY METHOD 02/29/2024 12:14 PM [facility] eGFR 88 >=60 mL/min/1. 73m2 LAB CHEMISTRY METHOD 02/29/2024 12:14 PM [facility] Comment:Calculation based on the??Chronic Kidney Disease Epidemiology Collaboration (CKD-EPI) equation refit??without adjustment for race. BUN/Creatinine Ratio 31.1 LAB CHEMISTRY METHOD 02/29/2024 12:14 PM [facility] Calcium 8.9 8.5 - 10.5 mg/dL LAB CHEMISTRY METHOD 02/29/2024 12:14 PM [facility] AST (SGOT) 22 10 - 42 unit/L LAB CHEMISTRY METHOD 02/29/2024 12:14 PM [facility] ALT (SGPT) 24 10 - 60 unit/L LAB CHEMISTRY METHOD 02/29/2024 12:14 PM [facility] Alkaline Phosphatase 36(L) 42 - 121 unit/L LAB CHEMISTRY METHOD 02/29/2024 12:14 PM [facility] Total Protein 5.8(L) 6.0 - 8.0 g/dL LAB CHEMISTRY METHOD 02/29/2024 12:14 PM [facility] Albumin 3.2 3.2 - 5.0 g/dL LAB CHEMISTRY METHOD 02/29/2024 12:14 PM [facility] Total Bilirubin 0.4 0.0 - 1.4 mg/dL LAB CHEMISTRY METHOD 02/29/2024 12:14 PM [facility] Blood Venous blood specimen / Unknown Venipuncture / Unknown 02/29/2024 6:57 AM EST 02/29/2024 10:58 AM EST us Simon Katz MD LAB BLOOD ORDERABLES Final Resul t [facility] [address] [place] [address], * (ABNORMAL) Complete blood count (02/29/2024 6:57 AM EST) WBC 5.6 4.8 - 10.8 K/mcL LAB HEMETOLOGY METHOD 02/29/2024 11:46 AM [facility] RBC 3.70(L) 3.80 - 4.80 M/[facility] LAB HEMETOLOGY METHOD 02/29/2024 11:46 AM [facility] Hemoglobin 10.8(L) 11.5 - 16.0 g/dL LAB HEMETOLOGY METHOD 02/29/2024 11:46 AM [facility] Hematocrit 34.4(L) 35.0 - 47.0 % LAB HEMETOLOGY METHOD 02/29/2024 11:46 AM [facility] MCV 93.7 79.0 - 98.0 FL LAB HEMETOLOGY METHOD 02/29/2024 11:46 AM [facility] MCH 29.4 27.0 - 32.0 pcg LAB HEMETOLOGY METHOD 02/29/2024 11:46 AM [facility] MCHC 31.4(L) 32.0 - 37.0 g/dL LAB HEMETOLOGY METHOD 02/29/2024 11:46 AM [facility] RDW 13.4 11.0 - 15.0 % LAB HEMETOLOGY METHOD 02/29/2024 11:46 AM [facility] Platelets 203 130 - 400 K/mcL LAB HEMETOLOGY METHOD 02/29/2024 11:46 AM [facility] MPV 13.6(H) 7.0 - 11.0 FL LAB HEMETOLOGY METHOD 02/29/2024 11:46 AM [facility] NRBC 0.0 <1.0 % LAB HEMETOLOGY METHOD 02/29/2024 11:46 AM [facility] NRBC Absolute 0.00 <0.10 K/mcL LAB HEMETOLOGY METHOD 02/29/2024 11:46 AM [facility] Blood Venous blood specimen / Unknown Venipuncture / Unknown 02/29/2024 6:57 AM EST 02/29/2024 10:58 AM EST us Simon Katz MD LAB BLOOD ORDERABLES Final Resul t [facility] [address] [place] [address], documented in this encounter Visit Diagnoses Diagnosis Parkinsonism, unspecified (CMS/HCC V24, CMS/HCC V28) documented in this encounter Care Teams Metal Fabrication Supervisor Relationship Specialty Start Date End Date Simon Katz MD [address] [place] [address] [address] [place], [phone] PCP - General Family Medicine 02/03/24 documented as of this encounter
--- OUTSIDE RECORDS SUMMARY | 2024-08-15 12:25 | XMS_ITS | Clinical Summary ---
Author Organization [address] [facility] Address [address] [place] [address] Phone Care Team Providers Care Capsule Maker Name Role Phone Simon Katz MD Primary Care Provider [phone] Social History Tobacco Use Types Packs/Day Years [...] Vaccines (1 of 2) 11/09/2005 COVID-19 Vaccine ( - season) 2023 Cholesterol Screening (Lipid Panel) 02/03/2024 Colorectal Cancer Screening: Colonoscopy 02/03/2024 Depression Screening 02/03/2024 Falls Risk Assessment 02/03/2024 Hepatitis C Screening 02/03/2024 Medicare Annual Wellness Visit 02/03/2024 Osteoporosis Screening (Bone Density Screening) 02/03/2024 Social Influencers of Health Screening 02/03/2024 Influenza Vaccine (Season Ended) 2024 Hypertension/CHF/CAD Annual BMP Blood Test 03/14/2025 03/14/2024, [...] 03/14/2024 11:31 AM [facility] Potassium 3.7 3.5 - 5.5 mmol/L LAB CHEMISTRY METHOD 03/14/2024 11:31 AM [facility] Chloride 110 96 - [...] LAB CHEMISTRY METHOD 03/14/2024 11:31 AM EST [facility] Comment:Calculation based on the??Chronic Kidney Disease Epidemiology Collaboration (CKD-EPI) equation refit??without adjustment for race. BUN/Creatinine Ratio 23.7 LAB CHEMISTRY METHOD 03/14/2024 11:31 AM EST [facility] Calcium 9.1 8.5 - 10.5 mg/dL LAB CHEMISTRY METHOD 03/14/2024 11:31 AM EST [facility] Blood Venous blood specimen / Unknown Venipuncture / Unknown 03/14/2024 6:22 AM EST 03/14/2024 10:16 AM EST us Simon Katz MD LAB BLOOD ORDERABLES Final Resul t [facility]) [facility] [address] [place] [address], from Last 3 Months or Most Recently Relevant to Health Maintenance Insurance MEDICAID - [place] MEDICARE Care Teams Capsule Maker Relationship Specialty Start Date End Date Simon Katz MD [address] [place] [address], [phone] PCP - General Family Medicine 02/03/24
--- OUTSIDE RECORDS SUMMARY | 2024-08-15 12:25 | XMS_ITS | Encounter Summary ---
Author Organization [facility] Address [address] [place] [address] Care Team Providers Care Adolescent Medicine Specialist Name Role Phone Simon Katz MD Primary Care Provider [phone] Encounter Details Date Type Department Care Team (Late st Contact Info) Description 03/07/2024 Lab Requisition [facility] - Main Lab [address] [place] [address] Simon Katz MD [address] [facility] [address] [place], [phone] Essential (primary) hypertension; Poikiloderma vasculare atrophicans; [...] LAB CHEMISTRY METHOD 03/07/2024 12:26 PM EST [facility] Potassium 3.8 3.5 - 5.5 mmol/L LAB CHEMISTRY METHOD 03/07/2024 12:26 PM [facility] Chloride 109 96 - 110 mmol/L LAB CHEMISTRY METHOD 03/07/2024 12:26 PM [facility] CO2 26 21 - 32 mmol/L LAB CHEMISTRY METHOD 03/07/2024 12:26 PM [facility] Anion Gap 9 3 - 11 LAB CHEMISTRY METHOD 03/07/2024 12:26 PM [facility] Glucose 111(H) 70 - 100 mg/dL LAB CHEMISTRY METHOD 03/07/2024 12:26 PM [facility] BUN 16 5 - 25 mg/dL LAB CHEMISTRY METHOD 03/07/2024 12:26 PM [facility] Creatinine 0.72 0.50 - 1.10 mg/dL LAB CHEMISTRY METHOD 03/07/2024 12:26 PM [facility] eGFR 91 >=60 mL/min/1. 73m2 LAB CHEMISTRY METHOD 03/07/2024 12:26 PM [facility] Comment:Calculation based on the??Chronic Kidney Disease Epidemiology Collaboration (CKD-EPI) equation refit??without adjustment for race. BUN/Creatinine Ratio 22.2 LAB CHEMISTRY METHOD 03/07/2024 12:26 PM [facility] Calcium 9.2 8.5 - 10.5 mg/dL LAB CHEMISTRY METHOD 03/07/2024 12:26 PM [facility] Blood Venous blood specimen / Unknown Venipuncture / Unknown 03/07/2024 8:35 AM EST 03/07/2024 10:21 AM EST us Simon Katz MD LAB BLOOD ORDERABLES Final Resul t [facility] [address] [place] [address], * (ABNORMAL) Complete blood count (03/07/2024 8:35 AM EST) [facility] WBC 5.4 4.8 - 10.8 K/mcL LAB HEMETOLOGY METHOD 03/07/2024 12:32 PM [facility] RBC 3.70(L) 3.80 - 4.80 M/mcL LAB HEMETOLOGY METHOD 03/07/2024 12:32 PM [facility] Hemoglobin 10.7(L) 11.5 - 16.0 g/dL LAB HEMETOLOGY METHOD 03/07/2024 12:32 PM [facility] Hematocrit 33.9(L) 35.0 - 47.0 % LAB HEMETOLOGY METHOD 03/07/2024 12:32 PM [facility] MCV 92.4 79.0 - 98.0 FL LAB HEMETOLOGY METHOD 03/07/2024 12:32 PM [facility] MCH 29.2 27.0 - 32.0 pcg LAB HEMETOLOGY METHOD 03/07/2024 12:32 PM [facility] MCHC 31.6(L) 32.0 - 37.0 g/dL LAB HEMETOLOGY METHOD 03/07/2024 12:32 PM [facility] RDW 13.3 11.0 - 15.0 % LAB HEMETOLOGY METHOD 03/07/2024 12:32 PM [facility] Platelets 164 130 - 400 K/mcL LAB HEMETOLOGY METHOD 03/07/2024 12:32 PM [facility] MPV 13.2(H) 7.0 - 11.0 FL LAB HEMETOLOGY METHOD 03/07/2024 12:32 PM [facility] NRBC 0.0 <1.0 % LAB HEMETOLOGY METHOD 03/07/2024 12:32 PM [facility] NRBC Absolute 0.00 <0.10 K/mcL LAB HEMETOLOGY METHOD 03/07/2024 12:32 PM EST [facility] Blood Venous blood specimen / Unknown Venipuncture / Unknown 03/07/2024 8:35 AM EST 03/07/2024 10:21 AM EST us Simon Katz MD LAB BLOOD ORDERABLES Final Resul t [facility] [address] [place] [address], documented in this encounter Visit Diagnoses Diagnosis Essential (primary) hypertension Unspecified essential hypertension Poikiloderma vasculare atrophicans Encounter for examination for admission to [facility] documented in this encounter Care Teams Adolescent Medicine Specialist Relationship Specialty Start Date End Date Simon Katz MD [address] [place] [address] [address] [place], [phone] PCP - General Family Medicine 02/03/24 documented as of this encounter
--- OUTSIDE RECORDS SUMMARY | 2024-08-15 12:25 | XMS_ITS | Clinical Summary ---
Author Organization Unknown Care Team Providers Care Tattoo Artist Name Role Phone DEONTE GONZALEZ, MELISSA Unavailable Unavailable TESHA RN, ILIANA Unavailable Unavailable Payers Payer Name Policy Type Policy Number Effective Date Expira tion Date ON DEMAND MEDICARE - [place] BILLING - ABN [id number] [facility] [id number] Problems Condition Name Condition Details Condition Category Status Onset Date Resolution Date Last Treatment Date Treating Clinician Comments SCHIZOPHRENI A, UNSPECIFIED Active 07-27 00:00: 00 Allergies, Adverse Reactions, Alerts Allergy Name Allergy Type Status Severity Reaction(s) Onset Date Inactive Date Treating Clinician Comments NKA Propensity to adverse reactions Active 2024-07 19:32:5 9 Medications Ordered Medication Name Filled Medication Name Start Date Stop Date Current Medication? Ordering Clinician Indication Dosage Frequency Signature (SIG) Comments Components alendronate 70 mg tablet 08-01 00:00: 00 Yes [id number] 1 tablet WEEKLY 1 tablet WEEKLY (route: oral) Med Classific ation: Endocrine benztropine 0.5 mg tablet 08-01 00:00: 00 Yes [id number] 1 tablet BEDTIME 1 tablet BEDTIME (route: oral) Med Classific ation: Central Nervous System Agents carbidopa 25 mg-levodopa 100 mg tablet 08-01 00:00: 00 Yes [id number] 1 tablet DAILY 1 tablet DAILY (route: oral) Med Classific ation: Central Nervous System Agents melatonin 3 mg tablet 08-01 00:00: 00 Yes [id number] 2 tablet BEDTIME 2 tablet BEDTIME (route: oral) Med Classific ation: Central Nervous System Agents memantine 5 mg tablet 08-01 00:00: 00 Yes [id number] 1 tablet DAILY 1 tablet DAILY (route: oral) Med Classific ation: Cognitive Disorder Therapy metoprolol tartrate 25 mg tablet 08-01 00:00: 00 Yes [id number] 1 tablet 2 TIMES DAILY 1 tablet 2 TIMES DAILY (route: oral) Med Classific ation: Cardiovas cular Therapy Agents Rexulti 2 mg tablet 08-01 00:00: 00 Yes [id number] 1 tablet DAILY 1 tablet DAILY (route: oral) Med Classific ation: Central Nervous System Agents Senna Laxative 8.6 mg tablet 08-01 00:00: 00 Yes [id number] 1 tablet 2 TIMES DAILY 1 tablet 2 TIMES DAILY (route: oral) Med Classific ation: Gastroint estinal Therapy Agents simvastatin 20 mg tablet 08-01 00:00: 00 Yes [id number] 1 tablet DAILY 1 tablet DAILY (route: oral) Med Classific ation: Cardiovas cular Therapy Agents trazodone 100 mg tablet 08-01 00:00: 00 Yes [id number] 1 tablet BEDTIME 1 tablet BEDTIME (route: oral) Med Classific ation: Central Nervous System Agents Vital Signs Vital Name Observation Time Observation Value Commen ts Temperature 2024-08-15 10:50:00.000 98.1 [degF] Temperature 2024-08-14 08:52:00.000 98.6 [degF] Temperature 2024-08-13 11:03:00.000 98.6 [degF] Temperature 2024-08-13 10:55:00.000 97.8 [degF] Temperature 2024-08-12 10:25:00.000 97.6 [degF] Temperature 2024-08-11 10:44:00.000 97.6 [degF] Temperature 2024-08-10 18:27:00.000 98.6 [degF] Temperature 2024-08-10 10:48:00.000 97.9 [degF] Temperature 2024-08-09 09:28:00.000 98.6 [degF] Temperature 2024-08-08 20:55:00.000 98.6 [degF] Temperature 2024-08-08 11:22:00.000 97.9 [degF] Temperature 2024-08-06 11:11:00.000 98.6 [degF] Temperature 2024-08-03 10:28:00.000 98.6 [degF] Temperature 2024-08-02 12:54:00.000 98.6 [degF] Temperature 2024-08-01 19:29:00.000 98.6 [degF] BMI (%) 2024-08-01 19:06:34.000 19 kg/m2 Height 2024-08-01 19:04:49.000 64 [in_us] Pulse 2024-08-15 10:50:00.000 60 /min Pulse 2024-08-14 08:52:00.000 80 /min Pulse 2024-08-13 11:03:00.000 78 /min Pulse 2024-08-13 10:55:00.000 69 /min Pulse 2024-08-12 10:25:00.000 60 /min Pulse 2024-08-11 10:44:00.000 68 /min Pulse 2024-08-10 18:27:00.000 72 /min Pulse 2024-08-10 10:48:00.000 60 /min Pulse 2024-08-09 09:28:00.000 82 /min Pulse 2024-08-08 20:55:00.000 82 /min Pulse 2024-08-08 11:23:00.000 60 /min Pulse 2024-08-06 11:11:00.000 86 /min Pulse 2024-08-03 10:28:00.000 82 /min Pulse 2024-08-02 12:54:00.000 78 /min Pulse 2024-08-01 19:29:00.000 72 /min Respirations 2024-08-15 10:50:00.000 18 /min Respirations 2024-08-14 08:52:00.000 20 /min Respirations 2024-08-13 11:03:00.000 20 /min Respirations 2024-08-13 10:55:00.000 18 /min Respirations 2024-08-12 10:25:00.000 16 /min Respirations 2024-08-11 10:44:00.000 16 /min Respirations 2024-08-10 18:27:00.000 20 /min Respirations 2024-08-10 10:48:00.000 18 /min Respirations 2024-08-09 09:28:00.000 20 /min Respirations 2024-08-08 20:55:00.000 20 /min Respirations 2024-08-08 11:22:00.000 18 /min Respirations 2024-08-06 11:11:00.000 20 /min Respirations 2024-08-03 10:28:00.000 20 /min Respirations 2024-08-02 12:54:00.000 20 /min Respirations 2024-08-01 19:29:00.000 20 /min Weight (lbs) 2024-08-01 19:06:34.000 112 [lb_av] Systolic Blood Pressure 2024-08-15 10:50:00.000 113 mm [Hg] Systolic Blood Pressure 2024-08-14 08:52:00.000 105 mm [Hg] Systolic Blood Pressure 2024-08-13 11:03:00.000 108 mm [Hg] Systolic Blood Pressure 2024-08-13 10:55:00.000 129 mm [Hg] Systolic Blood Pressure 2024-08-12 10:25:00.000 110 mm [Hg] Systolic Blood Pressure 2024-08-11 10:44:00.000 138 mm [Hg] Systolic Blood Pressure 2024-08-10 18:27:00.000 132 mm [Hg] Systolic Blood Pressure 2024-08-10 10:48:00.000 111 mm [Hg] Systolic Blood Pressure 2024-08-09 09:28:00.000 102 mm [Hg] Systolic Blood Pressure 2024-08-08 20:55:00.000 132 mm [Hg] Systolic Blood Pressure 2024-08-08 11:23:00.000 140 mm [Hg] Systolic Blood Pressure 2024-08-06 11:11:00.000 142 mm [Hg] Systolic Blood Pressure 2024-08-03 10:28:00.000 172 mm [Hg] Systolic Blood Pressure 2024-08-02 12:54:00.000 142 mm [Hg] Systolic Blood Pressure 2024-08-01 19:29:00.000 122 mm [Hg] Diastolic Blood Pressure 2024-08-15 10:50:00.000 82 mm [Hg] Diastolic Blood Pressure 2024-08-14 08:52:00.000 72 mm [Hg] Diastolic Blood Pressure 2024-08-13 11:03:00.000 70 mm [Hg] Diastolic Blood Pressure 2024-08-13 10:55:00.000 76 mm [Hg] Diastolic Blood Pressure 2024-08-12 10:25:00.000 66 mm [Hg] Diastolic Blood Pressure 2024-08-11 10:44:00.000 70 mm [Hg] Diastolic Blood Pressure 2024-08-10 18:27:00.000 72 mm [Hg] Diastolic Blood Pressure 2024-08-10 10:48:00.000 75 mm [Hg] Diastolic Blood Pressure 2024-08-09 09:28:00.000 74 mm [Hg] Diastolic Blood Pressure 2024-08-08 20:55:00.000 82 mm [Hg] Diastolic Blood Pressure 2024-08-08 11:23:00.000 99 mm [Hg] Diastolic Blood Pressure 2024-08-06 11:11:00.000 82 mm [Hg] Diastolic Blood Pressure 2024-08-03 10:28:00.000 78 mm [Hg] Diastolic Blood Pressure 2024-08-02 12:54:00.000 72 mm [Hg] Diastolic Blood Pressure 2024-08-01 19:29:00.000 70 mm [Hg] Plan of Treatment Planned Activity Planned Date Details Comments Future Scheduled Test SKILLED NU RSE TO EVALUATE PATIENT, IDENTIFY PRIMARY AND CO-MORBID CONDITIONS CODED PER CODING GUIDELINES, AND DEVELOP PATIENT SPECIFIC PLAN OF CARE THAT INCLUDES PATIENT GOAL FOR HOME HEALTH. [code = SKILLED NURSE TO EVALUATE PATIENT, IDENTIFY PRIMARY AND CO-MORBID CONDITIONS CODED PER CODING GUIDELINES, AND DEVELOP PATIENT SPECIFIC PLAN OF CARE THAT INCLUDES PATIENT GOAL FOR HOME HEALTH.] Future Scheduled Test PATIENT MA Y HAVE ONE SET OF EMERGENCY MEDICATION NOT TO BE PRE-POURED ANY SOONER THAN 24 HOURS BEFORE SEVERE INCLEMENT WEATHER OR EMERGENT EVENT AND FOLLOWING SKILLED NURSE EVALUATION OF PATIENT SAFETY. [code = PATIENT MAY HAVE ONE SET OF EMERGENCY MEDICATION NOT TO BE PRE-POURED ANY SOONER THAN 24 HOURS BEFORE SEVERE INCLEMENT WEATHER OR EMERGENT EVENT AND FOLLOWING SKILLED NURSE EVALUATION OF PATIENT SAFETY.] Future Scheduled Test SKILLED NU RSE TO O/A OF PATIENTS MENTAL/BEHAVIORAL STATUS, ASSESS VITAL SIGNS EVERY VISIT ALLOW 2 PRNS FOR MEDICATION MANAGEMENT. [code = SKILLED NURSE TO O/A OF PATIENTS MENTAL/BEHAVIORAL STATUS, ASSESS VITAL SIGNS EVERY VISIT ALLOW 2 PRNS FOR MEDICATION MANAGEMENT.] Future Scheduled Test SKILLED NU RSE FOR O/A OF ALTERED THOUGHT PROCESS AND/OR DISRUPTION IN COGNITIVE OPERATIONS AND ACTIVITIES. [code = SKILLED NURSE FOR O/A OF ALTERED THOUGHT PROCESS AND/OR DISRUPTION IN COGNITIVE OPERATIONS AND ACTIVITIES.] Future Scheduled Test MEDICATION S WILL BE HELD AND STORED IN LOCKBOX [code = MEDICATIONS WILL BE HELD AND STORED IN LOCKBOX] Future Scheduled Test SKILLED NU RSE FOR O/A OF GENERAL HEALTH STATUS OF PAIN, CARDIAC, RESPIRATORY, GASTROINTESTINAL, GENITOURINARY, SKIN, NEUROLOGIC, ENDOCRINE SYSTEMS TO IDENTIFY CHANGES ASSOCIATED WITH EXACERBATION FOR EARLY INTERVENTION OF COMPLICATIONS WEEKLY. [code = SKILLED NURSE FOR O/A OF GENERAL HEALTH STATUS OF PAIN, CARDIAC, RESPIRATORY, GASTROINTESTINAL, GENITOURINARY, SKIN, NEUROLOGIC, ENDOCRINE SYSTEMS TO IDENTIFY CHANGES ASSOCIATED WITH EXACERBATION FOR EARLY INTERVENTION OF COMPLICATIONS WEEKLY.] Future Scheduled Test SKILLED NU RSE TO ADMINISTER MEDICATIONS DAILY AND PRE-POUR MEDICATIONS DAILY PER MEDICATION LIST. [code = SKILLED NURSE TO ADMINISTER MEDICATIONS DAILY AND PRE-POUR MEDICATIONS DAILY PER MEDICATION LIST.] Future Scheduled Test SKILLED NU RSE FOR O/A AND SKILLED TEACHING OF COPING SKILLS TO MANAGE ANXIETY AND MAINTAIN SAFETY. [code = SKILLED NURSE FOR O/A AND SKILLED TEACHING OF COPING SKILLS TO MANAGE ANXIETY AND MAINTAIN SAFETY.] Future Scheduled Test SKILLED NU RSE FOR O/A AND SKILLED TEACHING RELATED TO MANAGEMENT OF DEPRESSIVE SYMPTOMS AND/OR DEPRESSION. SN TO REPORT SIGNIFICANT CHANGE IN DEPRESSIVE SYMPTOMS TO CLINICAL PROVIDER FOR EARLY INTERVENTION. [code = SKILLED NURSE FOR O/A AND SKILLED TEACHING RELATED TO MANAGEMENT OF DEPRESSIVE SYMPTOMS AND/OR DEPRESSION. SN TO REPORT SIGNIFICANT CHANGE IN DEPRESSIVE SYMPTOMS TO CLINICAL PROVIDER FOR EARLY INTERVENTION.] Future Scheduled Test SKILLED NU RSE FOR O/A OF SELF-CARE DEFICITS AND TO PROVIDE TEACHING RELATED TO SAFE PROVISION OF ADLS. [code = SKILLED NURSE FOR O/A OF SELF-CARE DEFICITS AND TO PROVIDE TEACHING RELATED TO SAFE PROVISION OF ADLS.] Future Scheduled Test SKILLED NU RSE TO PERFORM HOME SAFETY AND FALL ASSESSMENT AND PROVIDE INSTRUCTION TO IMPLEMENT HOME SAFETY AND FALL PREVENTION STRATEGIES. [code = SKILLED NURSE TO PERFORM HOME SAFETY AND FALL ASSESSMENT AND PROVIDE INSTRUCTION TO IMPLEMENT HOME SAFETY AND FALL PREVENTION STRATEGIES.] Future Scheduled Test SKILLED NU RSE FOR OBSERVATION AND ASSESSMENT OF PATIENTS PAIN LEVEL AND EFFECTIVENESS OF PAIN MANAGEMENT REGIMEN. SKILLED NURSE TO INSTRUCT PATIENT/CAREGIVER REGARDING PHARMACOLOGIC AND NON-PHARMACOLOGIC PAIN CONTROL MEASURES. SKILLED NURSE TO REPORT TO PHYSICIAN IF PAIN IS UNCONTROLLED WITH CURRENT PAIN MANAGEMENT REGIMEN. [code = SKILLED NURSE FOR OBSERVATION AND ASSESSMENT OF PATIENTS PAIN LEVEL AND EFFECTIVENESS OF PAIN MANAGEMENT REGIMEN. SKILLED NURSE TO INSTRUCT PATIENT/CAREGIVER REGARDING PHARMACOLOGIC AND NON-PHARMACOLOGIC PAIN CONTROL MEASURES. SKILLED NURSE TO REPORT TO PHYSICIAN IF PAIN IS UNCONTROLLED WITH CURRENT PAIN MANAGEMENT REGIMEN.] Future Scheduled Test SKILLED NU RSE TO ASSESS PATIENT'S SKIN INTEGRITY AND INSTRUCT PATIENT/CAREGIVER ON MEASURES TO PREVENT PRESSURE ULCERS. [code = SKILLED NURSE TO ASSESS PATIENT'S SKIN INTEGRITY AND INSTRUCT PATIENT/CAREGIVER ON MEASURES TO PREVENT PRESSURE ULCERS.] Future Scheduled Test SKILLED NU RSE TO INSTRUCT PATIENT/CAREGIVER ON MANAGING THE EMOTIONAL JOURNEY OF AGING UTILIZING THE EMBRACE SPECIALTY PROGRAM. [code = SKILLED NURSE TO INSTRUCT PATIENT/CAREGIVER ON MANAGING THE EMOTIONAL JOURNEY OF AGING UTILIZING THE EMBRACE SPECIALTY PROGRAM.] Future Scheduled Test PHYSICAL T HERAPIST TO EVALUATE PATIENT FOR HX OF FALLS, UNSTEADY GAIT. POOR ADLS. ADL ADAPTATION FOR SAFETY AND HYGIENE. [code = PHYSICAL THERAPIST TO EVALUATE PATIENT FOR HX OF FALLS, UNSTEADY GAIT. POOR ADLS. ADL ADAPTATION FOR SAFETY AND HYGIENE.] Future Scheduled Test OCCUPATION AL THERAPIST TO EVALUATE PATIENT FOR HX OF FALLS, UNSTEADY GAIT. POOR ADLS. ADL ADAPTATION FOR SAFETY AND HYGIENE. [code = OCCUPATIONAL THERAPIST TO EVALUATE PATIENT FOR HX OF FALLS, UNSTEADY GAIT. POOR ADLS. ADL ADAPTATION FOR SAFETY AND HYGIENE.] Future Scheduled Test PATIENT GREWAL S A RISK OF HOSPITALIZATION AND ED USE. SKILLED NURSE TO ESTABLISH SUPPORT MEASURES TO MINIMIZE RISK OF HOSPITALIZATION AND ED USE, AND INSTRUCT PATIENT/CAREGIVER ON METHODS TO REDUCE AVOIDABLE HOSPITALIZATION AND ED USE. [code = PATIENT HAS A RISK OF HOSPITALIZATION AND ED USE. SKILLED NURSE TO ESTABLISH SUPPORT MEASURES TO MINIMIZE RISK OF HOSPITALIZATION AND ED USE, AND INSTRUCT PATIENT/CAREGIVER ON METHODS TO REDUCE AVOIDABLE HOSPITALIZATION AND ED USE.] Future Scheduled Test SKILLED NU RSE TO ASSESS PATIENTS PSYCHOSOCIAL STATUS TO IDENTIFY POTENTIAL ISSUES THAT MAY COMPLICATE THE PROVISION OF THE PLAN OF CARE INCLUDING THE PATIENTS ABILITY TO ACCESS COMMUNITY RESOURCES AND PSYCHOSOCIAL SUPPORT SERVICES. [code = SKILLED NURSE TO ASSESS PATIENTS PSYCHOSOCIAL STATUS TO IDENTIFY POTENTIAL ISSUES THAT MAY COMPLICATE THE PROVISION OF THE PLAN OF CARE INCLUDING THE PATIENTS ABILITY TO ACCESS COMMUNITY RESOURCES AND PSYCHOSOCIAL SUPPORT SERVICES.] Future Scheduled Test SKILLED NU RSE WILL MAINTAIN SITUATIONAL AWARENESS FOR SAFETY AND WILL NOTIFY CLINICAL WINE AND SPIRITS CLERK AND PHYSICIAN/PROVIDER WITH ANY CHANGE IN CONDITION. [code = SKILLED NURSE WILL MAINTAIN SITUATIONAL AWARENESS FOR SAFETY AND WILL NOTIFY CLINICAL WINE AND SPIRITS CLERK AND PHYSICIAN/PROVIDER WITH ANY CHANGE IN CONDITION.] Future Scheduled Test SKILLED NU RSE TO PROVIDE INSTRUCTION TO PATIENT/CAREGIVER RELATED TO DISCHARGE PLANNING. [code = SKILLED NURSE TO PROVIDE INSTRUCTION TO PATIENT/CAREGIVER RELATED TO DISCHARGE PLANNING. ] Future Scheduled Test MEDICATION S WILL BE HELD AND STORED IN MEDICATION SAFE. [code = MEDICATIONS WILL BE HELD AND STORED IN MEDICATION SAFE.] Goal Patient Goal - I WANT TO FEEL BETTER AND KNOW MY PILLS. Goal Provider Goal - A PLAN OF CARE WILL BE ESTABLISHED THAT MEETS PATIENT'S RETIREMENT NEEDS AND INCLUDES PATIENT GOAL FOR HOME HEALTH. Goal Provider Goal - MEDICATION WILL BE AVAILABLE DURING INCLEMENT WEATHER OR EMERGENT EVENT THROUGHOUT CERTIFICATION PERIOD. Goal Provider Goal - ALTERED MENTAL/BEHAVIORAL STATUS WILL BE IDENTIFIED PROMPTLY AND INTERVENTION INITIATED QUICKLY TO MINIMIZE ASSOCIATED RISKS THROUGHOUT CERTIFICATION PERIOD. Goal Provider Goal - PATIENT WILL BE ABLE TO PERFORM DAILY FUNCTIONS AND HAVE OPTIMAL IMPROVEMENT IN THOUGHT PROCESS THROUGHOUT CERTIFICATION PERIOD. Goal Provider Goal - MEDICATION WILL BE STORED IN LOCKBOX FOR SAFETY. Goal Provider Goal - CHANGE IN GENERAL HEALTH STATUS WILL BE IDENTIFIED AND REPORTED TO PHYSICIAN FOR PROMPT INTERVENTION TO MINIMIZE ASSOCIATED RISKS THROUGHOUT CERTIFICATION PERIOD. Goal Provider Goal - PATIENT WILL COMPLY WITH MEDICATION WHEN SKILLED NURSE ADMINISTERS AND PRE-POURS MEDICATION THROUGHOUT CERTIFICATION PERIOD. Goal Provider Goal - PATIENT WILL BE ABLE TO PERFORM DAILY FUNCTIONS AND HAVE OPTIMAL IMPROVEMENT IN LEVEL OF ANXIETY THROUGHOUT CERTIFICATION PERIOD. Goal Provider Goal - PATIENT WILL REMAIN SAFE WITHOUT DECOMPENSATION IN DEPRESSIVE CONDITION, WHILE MAINTAINING OPTIMAL LEVEL OF MENTAL HEALTH AND WELL BEING THROUGHOUT CERTIFICATION PERIOD. Goal Provider Goal - PATIENT/CAREGIVER WILL VERBALIZE/DEMONSTRATE UNDERSTANDING OF SAFE PROVISION OF ADLS BY THE END OF THE CERTIFICATION PERIOD. Goal Provider Goal - PATIENT/CAREGIVER WILL VERBALIZE/DEMONSTRATE EFFECTIVE HOME SAFETY AND FALL PREVENTION STRATEGIES THROUGHOUT CERTIFICATION PERIOD. Goal Provider Goal - PATIENT/CAREGIVER WILL DEMONSTRATE UNDERSTANDING OF PHARMACOLOGIC AND NONPHARMACOLOGIC PAIN CONTROL MEASURES AND PATIENT WILL HAVE IMPROVEMENT IN PAIN INTERFERING WITH ACTIVITY EVIDENCED BY PAIN CONTROLLED AT LEVEL THAT IS ACCEPTABLE TO THE PATIENT BY END OF CERTIFICATION PERIOD. Goal Provider Goal - PATIENT/CAREGIVER WILL VERBALIZE UNDERSTANDING OF PRESSURE ULCER PREVENTION BY END OF THE EPISODE. Goal Provider Goal - PATIENT WILL VERBALIZE UNDERSTANDING OF METHODS TO MANAGE THE EMOTIONAL JOURNEY OF AGING THROUGHOUT THE CERTIFICATION PERIOD A RESULT OF PARTICIPATION IN THE EMBRACE SPECIALTY PROGRAM. Goal Provider Goal - A PHYSICAL THERAPY EVALUATION TO BE COMPLETED WITH RECOMMENDATIONS AND/OR WRITTEN PLAN OF TREATMENT ESTABLISHED FOR PHYSICIANS SIGNATURE. Goal Provider Goal - OCCUPATIONAL THERAPY EVALUATION TO BE COMPLETED WITH RECOMMENDATIONS AND WRITTEN PLAN OF TREATMENT ESTABLISHED FOR THE PHYSICIANS SIGNATURE. Goal Provider Goal - PATIENT WILL HAVE SUPPORT MEASURES ESTABLISHED TO PREVENT HOSPITALIZATION AND ED USE AND PATIENT/CAREGIVER WILL VERBALIZE/DEMONSTRATE METHODS TO REDUCE AVOIDABLE HOSPITALIZATION AND ED USE BY END OF EPISODE. Goal Provider Goal - PSYCHOSOCIAL NEEDS WILL BE IDENTIFIED AND PLAN IMPLEMENTED TO MINIMIZE RISK THROUGHOUT CERTIFICATION PERIOD. Goal Provider Goal - PATIENT WILL REMAIN SAFE IN THE COMMUNITY AND WILL BE FREE OF DANGER TO SELF AND OTHERS THROUGHOUT THE CERTIFICATION PERIOD. Goal Provider Goal - PATIENT/CAREGIVER WILL VERBALIZE UNDERSTANDING OF DISCHARGE PLANNING INSTRUCTIONS BY DATE OF DISCHARGE. Goal Provider Goal - MEDICATIONS WILL BE STORED IN MEDICATION SAFE FOR SAFETY. Progress Notes Progress Notes <paragraph>[Visit Date: 2024 by DOMINICK COREY ([facility]) [facility] - PT]:</paragraph><paragraph>PATIENT RESPONDING GRADUALLY TO PHYSICAL THERAPY TRAINING DEMONSTRATING GRADUAL IMPROVEMENTS IN RANGE OF MOTION AND STRENGTH A RESULT OF THERAPEUTIC EXERCISE TRAINING DYNAMIC STANDING BALANCE REMAINS LIMITED IN SINGLE LIMB STANCE WITH EXERCISE WHILE AMBULATING WITHOUT ASSISTIVE DEVICE AND IMMEDIATELY UPON STANDING WITH REPETITIVE TRANSFERS SOME LOSS OF BALANCE NOTED WELL. PATIENT REMAINS RETICENT ABOUT USING WALKER WILL REQUIRE CONTINUED PHYSICAL THERAPY TO ADDRESS RANGE OF MOTION STRENGTH AND BALANCE</paragraph> <paragraph>[Visit Date: 2024 by ILIANA PARKINSON RN]:</paragraph><paragraph>SN VISIT (08/14/2024) PATIENT PRESENTS ALERT ORIENTED TO SELF, APPEARANCE. CLEAN DID CHANGE CLOTHRS.PATIENT MOOD PLEASANT THIS AM INTERACTED MORE WITH THIS PROVIDER. PATIENT WAS SEEN BY PHYSICAL THERAPIST YESTERDAY AND WILL BE TREATED SEVERAL TIMES PER WEEK.PATIENT MOOD FACIALLY DEPRESSED, INCREASED EYE CONTACT. SN SUICIDE ASSESSMENT CONTRACTS FOR SAFETY DENIED HAVING ANY SUICIDAL OR HOMICIDAL PATIENT COOPERATIVE WITH TAKING MEDICATION ADMINISTERED BY SN WITH USE OF LOCKED MEDICATION BOX, TO SECURE SAFETY, CONFUSED ABOUT MEDICATION. .</paragraph> <paragraph>[Visit Date: 2024 by ILIANA PARKINSON RN]:</paragraph><paragraph>SN VISIT (08/13/2024) PATIENT PRESENTS ALERT ORIENTED TO SELF, APPEARANCE DISHELVED NO NO BODY. PATIENT PRESENTS ALERT ORIENTED TO SELF. PATIENT POOR HISTORIAN, NEEDS REPEATED INSTRUCTIONS ON IDENTIFIED DIAGNOSIS DISEASE PROCESS PROCESS, TREATMENT AND MANAGEMENT. PATIENT UNABLE TO RECALL EVENTS OF PAST 24 HOURS. POOR HISTORIAN,PATIENT COOPERATIVE WITH TAKING MEDICATION ADMINISTERED BY WITH USE OF LOCKED MEDICATION BOX, TO SECURE SAFETY, CONFUSED ABOUT MEDICATION .</paragraph> <paragraph>[Visit Date: 2024 by DOMINICK COREY ([facility]) [facility] - PT]:</paragraph><paragraph>PATIENT RESPONDING GRADUALLY TO PHYSICAL THERAPY TRAINING DEMONSTRATING SLOW IMPROVEMENTS IN RANGE OF MOTION AND STRENGTH OF THE TRUNK AND EXTREMITIES A RESULT OF THERAPEUTIC EXERCISE. DYNAMIC STANDING BALANCE REMAINS LIMITED IN SINGLE LIMB STANCE WHILE PERFORMING STANDING EXERCISES WELL AMBULATING WITHOUT ASSISTIVE DEVICE. CONTINUES TO PRESENT WITH NARROW BASE OF SUPPORT DECREASED STEP LENGTH AND HEIGHT WELL UNSTABLE TURNS AND REMAINS AT RISK OF FALLS</paragraph> <paragraph>[Visit Date: 2024 by MARK KHAN RN]:</paragraph><paragraph>08-12-24 RETIREMENT VISIT TO ASSESS MENTAL HEALTH STATUS SAFETY MEDICATION COMPLIANCE A.M. MEDICATIONS ADMINISTERED WITH DIRECT OBSERVATION EATING MEDS PREFILLED ALL MEDICATIONS SECURED IN LOCKBOX FOR SAFETY NO WILLING CAREGIVER TO ASSIST ...</paragraph> <paragraph>[Visit Date: 2024 by MARK KHAN RN]:</paragraph><paragraph>08-11-24 RETIREMENT VISIT MADE TO ASSESS MENTAL HEALTH STATUS SAFETY MADE . TO ASSESS MENTAL HEALTH STATUS SAFETY MEDICATION COMPLIANCE PATIENT COMPLIANT WITH PREFILLED MEDICATIONS EVENING MEDS PREFILLED ALL MEDICATIONS SECURED IN LOCKBOX FOR SAFETY PATIENT CALM AND COOPERATIVE DISHEVELED IN APPEARANCE PATIENT STATES SHE SLEPT WELL ...</paragraph> <paragraph>[Visit Date: 2024 by ILIANA PARKINSON RN]:</paragraph><paragraph> VISIT (08/10/2024) PATIENT PRESENTS ALERT ORIENTED TO SELF, APPEARANCE DISHELVED CHANGED CLOTHES, DIDNOT RECALL EVENTS OF PAST 24 HOURS, POOR HISTORIAN,PATIENT COOPERATIVE WITH TAKING MEDICATION ADMINISTERED BY SN [facility] USE OF LOCKED MEDICATION BOX, TO SECURE SAFETY, CONFUSED ABOUT MEDICATION. PATIENT SAW PSYCHIATRIST NO MEDICATION CHANGES.</paragraph> <paragraph>[Visit Date: 2024 by DOMINICK COREY ([facility]) [facility] - PT]:</paragraph><paragraph>PATIENT WITH GOOD PERFORMANCE OF THERAPEUTIC EXERCISE REQUIRES ENCOURAGEMENT TO PARTICIPATE. CONTINUES TO BE WEAK WELL DECONDITIONED GATE REMAINS UNSTEADY WITHOUT USE OF ASSISTIVE DEVICE DEMONSTRATING NARROW BASE OF SUPPORT WELL DECREASED STEP LENGTH AND HEIGHT UNSTABLE TURNS AND DOES REMAIN AT RISK OF FALLING</paragraph> <paragraph>[Visit Date: 2024 by ILIANA PARKINSON RN]:</paragraph><paragraph>SN VISIT (08/09/2024) PATIENT PRESENTS ALERT ORIENTED TO SELF, APPEARANCE DISHELVED CHANGED CLOTHES, DIDNOT RECALL EVENTS OF PAST 24 HOURS, PATIENT AFFECT FLAT, DIFFICULTY ENGAGING, ANXIOUS BODY GESTURES. SN TEACHING MEDICATION REGIMEN AND NEED TO REPORT ANT ANTPSYCHOTIC MEDICATION SIDE EFFECTS, SUCH INVOLUNTARY BODY MOVEMENTS, NOT RELATED TO PARKISON SYMPTOMS. SN UNLOCKED MEDICATION BOX, DIRECTLY ADMINISTED SCHEDULED MEDICATIONS, PATIENT CONFUSED ABOUT MEDICATION REGIMEN, UNSAFE WITH INDEPENDENT MEDICATION MANAGEMENT, SN POURD MEDICATIONS FOR BEDTIME..</paragraph> Encounters Start Date/Time End Date/Time Encounter Type Admission Type Attending Clinicians Care Facility Care Department Encounter ID Discharge Date Discharge Status Discharge Condition Discharge Reason Percent Goals Met 2024-08-01 00:00:00 2024-09-29 00:00:00 Outpatient NEW ADMISSION ILIANA PARKINSON [facility] [id number] 2.5 [id number]
--- OUTSIDE RECORDS SUMMARY | 2024-08-15 12:25 | XMS_ITS | Continuity of Care Document ---
Author Organization [employer] [facility] Address [address] [place] [address] Phone Care Team Providers Care Curtain Feller Blindstitch Name Role Phone Unavailable Unavailable Unavailable Allergies, [...] 12 hours x 7 days - Active Klor-Con M20 mEq tablet,extended release take 1 tablet by oral route every day with food 20 MEQ - Active lisinopril 20 mg-hydrochlorothiazi de 12.5 mg tablet take 1 tablet by oral route every day 1.00 tablet - Active lansoprazole 30 mg capsule,delayed release take 1 capsule by oral route every day before a meal 30 MG - Active Co Q-10 300 mg capsule Take one capsule by oral route daily - Active Glucosamine 500 mg tablet - Active Calcium 600 600 mg (1,500 mg) tablet - Active Vitamin D3 5,000 unit tablet - Active red yeast rice 600 mg tablet - Active ProAir HFA 90 mcg/actuation aerosol inhaler inhale 2 puff by inhalation route every 4 - 6 hours as needed - Active Advance Directives Directive Yes / No Effective Date File Name No Information Encounters Encounter Description Practice Location Reason(s) For Visit Diagnoses Date Provider DNS:Net, [address], [place], [place], [id number], tel:[phone] [facility] No Information 8 No Information DNS:Net, [address], [place], [place], [id number], tel:[phone] [facility] hypertension (chief complaint)ast hma (chief complaint)TRAVIS D (chief complaint)col d sores (chief complaint) Essential (primary) hypertensionGERD w/o esophagitisUnspecifie d asthma, uncomplicatedHerpes simplex labialis 7 No Information DNS:Net, [address], [place], [place], [id number], tel:[phone] [facility] Establish care (chief complaint)Hyp ertension (chief complaint)TRAVIS D (chief complaint)ast hma (chief complaint) Essential (primary) hypertensionGERD w/o esophagitisUnspecifie d asthma, uncomplicated 7 No Information DNS:Net, [address], [place], [place], [id number], tel:[phone] [facility] Essential (primary) hypertensionUnspecifi ed asthma, uncomplicated 7 No Information DNS:Net, [address], [place], [place], [id number], tel:[phone] [facility] Cough (chief complaint)hyp ertension (chief complaint)TRAVIS D (chief complaint) Bronchopneumonia, unspecified organismGERD w/o esophagitis 7 Raad Alfaro. [facility] [address] [place], [place], [id number], [place]. tel:[phone] Family History Family Member Type Diagnosis Age At Onset No Information Payers Payer name Insurance type Covered libertarian ID Authoriza tibailey(s) [employer] O [id number] Social History Type Description Quantity Date Captured Comments Sex Female Smoking Status No Information Chief Complaint And Reason For Visit No Information Plan Of Treatment Date Type Action Status Goal Spirometry. Due on 17 due Goal [...] Td vaccine. Due on 17 due Goal Depression screening. Due on due [...] home and may be moving back to [place] however they are uncertain where. The pt's [...] hours for last 3 days. hypertension (comments) [facility] Has refills on HTN medications.PMHX- HTN, [...]
--- OUTSIDE RECORDS SUMMARY | 2024-08-15 12:25 | XMS_ITS | Encounter Summary ---
Author Organization [facility] Address [address] [place] [address] Care Team Providers Care Senior Editor Name Role Phone Simon Kazt MD Primary Care Provider [phone] Encounter Details Date Type Department Care Team (Late st Contact Info) Description 03/13/2024 Lab Requisition [facility] - Main Lab [address] [place] [address] Simon Katz MD [address] [facility] [address] [place], [address] Essential (primary) hypertension Social History Tobacco [...] LAB CHEMISTRY METHOD 03/14/2024 11:31 AM EST [facility] Potassium 3.7 3.5 - 5.5 mmol/L LAB CHEMISTRY METHOD 03/14/2024 11:31 AM EST [facility] Chloride 110 96 - 110 [...] METHOD 03/14/2024 11:31 AM [facility] Creatinine 0.76 0.50 - 1.10 mg/dL LAB CHEMISTRY METHOD 03/14/2024 11:31 AM [facility] eGFR 85 >=60 mL/min/1. 73m2 LAB CHEMISTRY METHOD 03/14/2024 11:31 AM [facility] Comment:Calculation based on the??Chronic [...] MD LAB BLOOD ORDERABLES Final Resul t [facility] [address] [place] [address], * (ABNORMAL) Complete blood count (03/14/2024 6:22 [...] MD LAB BLOOD ORDERABLES Final Resul t [facility] [address] [place] [address], documented in this encounter Visit Diagnoses Diagnosis Essential (primary) hypertension Unspecified essential hypertension documented in this encounter Care Teams Senior Editor Relationship Specialty Start Date End Date Simon Katz MD [address] [place] [address], [phone] PCP - General Family Medicine 02/03/24 documented as of this encounter
[2024-08-15 13:29] LABS: Estimated Average Glucose 91 mg/dL; Hemoglobin A1C 101.0693 umol/L; Hemoglobin A1c % 4.8 % (<6.0); Total Hemoglobin (HGBA1C) 3451.0341 umol/L
[2024-08-15 14:40] LABS: Alanine Aminotransferase 7 U/L (0-31); Alkaline Phosphatase 76 U/L (39-117); Anion Gap 12 (12-20); Aspartate Amino Transferase 22 U/L (5-31); Bilirubin Total 0.5 mg/dL (0.0-1.0); Blood Urea Nitrogen 15 mg/dL (9-16); Calcium 8.9 mg/dL (8.4-10.2); Carbon Dioxide 25 mmol/L (22-29); Chloride 111 mmol/L (96-108); Cholesterol 132 mg/dL (<200); Estimated Glomerular Filt Rate > 60; Glucose Random 93 mg/dL (60-115); HDL Cholesterol 45 mg/dL (>40); LDL Cholesterol Calculated 73 mg/dL (<100); Potassium 3.9 mmol/L (3.3-5.1); Sodium 144 mmol/L (135-145); Total Protein 6.8 g/dL (6.5-8.0); Triglycerides 73 mg/dL (<150)
[2024-08-15 14:57] LABS: Reflex LDLD? No; Vitamin D 25-OH Total 36.1 ng/mL (>30)
== END 2024-08-15 11:01 | disposition home or self-care (01) ==
LOC: HO.HHCL 11:00
PROVIDERS: Visit Provider Family Medicine
DX: Z13.1 Encounter for screening for diabetes mellitus (principal); E55.9 Vitamin D deficiency, unspecified; E78.5 Hyperlipidemia, unspecified; I10 Essential (primary) hypertension
CPT/HCPCS: 36415; 80053; 80061; 82306; 83036

== ENCOUNTER 2024-09-09 14:20 | Emergency (ER) | payer MEDICARE, MEDICAID, SELFPAY ==
[2024-09-09 14:35] VITALS: BP 139/51; PULSE 54; RESP 18; TEMP 37; O2SAT 96; BMI 32.4
--- NOTE | 2024-09-09 14:37 | ED_ITS ---
HPI - Extremity Injury (Upper) General Chief Complaint: Extremity Injury, Upper Stated Complaint: finger inj Time Seen by Provider: 09/09/24 14:39 Source: patient Mode of arrival: ambulatory Limitations: no limitations History of Present Illness ED Provider: Jackie Lares APRN HPI narrative: 68 yo female with history of schizophrenia, PTSD, hypertension, right hand dominant here with abrasion to right hand 3rd digit noted x several days. Patient reports she bites her nails and bit her nail to close to the nail bed. Now she has some pain at the site and some redness. No fevers, chills, swelling, numbness, tingling or diff moving the finger. Related Data Previous Rx's ?Medication ?Instructions ?Recorded brexpiprazole 2 mg tablet (Rexulti) 2 mg PO DAILY #30 tabs 07/30/24 alendronate 70 mg tablet 70 mg PO FR #4 tabs 07/31/24 benztropine 0.5 mg tablet 0.5 mg PO BEDTIME #30 tabs 07/31/24 carbidopa 25 mg-levodopa 100 mg 1 tab PO DAILY #30 tabs 07/31/24 tablet melatonin 3 mg tablet 6 mg (2 x 3 mg) PO BEDTIME #60 tabs 07/31/24 memantine 5 mg tablet 5 mg PO DAILY #30 tabs 07/31/24 metoprolol tartrate 25 mg tablet 25 mg PO BID #60 tabs 07/31/24 sennosides 8.6 mg-docusate sodium 1 tab PO BID PRN Constipation #60 07/31/24 50 mg tablet (Senna Plus) tabs simvastatin 20 mg tablet 20 mg PO BEDTIME #30 tabs 07/31/24 trazodone 100 mg tablet 100 mg PO BEDTIME #30 tabs 07/31/24 mupirocin 2 % topical ointment 1 appl topical BID #15 grams 09/09/24 Allergies Allergy/AdvReac Type Severity Reaction Status Date / Time No Known Allergies Allergy Verified 09/09/24 14:38 Review of Systems 2 Review of Systems: Yes all other systems are reviewed and are negative Constitutional: Constitutional: Reports no additional constitutional complaints, Denies body ache(s), Denies chills, Denies fever(s), Denies headache(s) and Denies weakness Eyes: Eyes: Reports no additional eye complaints and Denies change in vision ENT: Reports system reviewed and no additional complaints, except as documented, Denies dizziness, Denies headache(s), Denies nasal congestion, Denies nasal discharge and Denies neck pain Cardiovascular: Cardiovascular: Reports no additional cardiovascular complaints, Denies chest pain, Denies leg edema and Denies dyspnea Respiratory: Respiratory: Reports no additional respiratory complaints, Denies cough and Denies dyspnea Gastrointestinal: Gastrointestinal: Reports no additional gastrointestinal complaints, Denies abdominal pain, Denies diarrhea, Denies nausea and Denies vomiting Genitourinary: Genitourinary: Reports no additional female genitourinary complaints and Denies urinary incontinence Musculoskeletal: Musculoskeletal: Reports no additional musculoskeletal complaints, Denies back pain, Denies arthralgias, Denies joint swelling, Denies neck pain, Denies numbness and Denies tingling Integumentary/Breasts: Skin/Breast: Reports system reviewed and no additional complaints, except as docu, Denies swelling, Reports erythema and Denies rash Neurologic: Reports system reviewed and no additional complaints, except as documented, Denies Abnormal speech present, Denies dizziness, Denies headache(s), Denies numbness, Denies tingling and Denies weakness PMFSH Past Medical History Attestation statement: The following information was validated with the patient. Source: old records reviewed and nursing notes reviewed Medical History Porcelain gallbladder Schizoaffective disorder Anxiety HLD (hyperlipidemia) HTN (hypertension) Schizophrenia Social History Social History Household Members: Other Household Members Other:: Just a roommate Housing: Apartment Do you presently have visiting nurse or other home services: No Alcohol intake: former Comment: 5-min checks Patient Tobacco Use Status: Never used Tobacco e-Cigarette/Vaping Use: Never Used service: No Current 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 status: 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 Sexual orientation: Straight/Heterosexual Physical Exam 2 Vital Signs: Vital Signs: Last Vital Signs Temp 98.6 F 09/09/24 14:35 Pulse 54 09/09/24 14:35 Resp 18 09/09/24 14:35 BP 139/51 L 09/09/24 14:35 Pulse Ox 96 09/09/24 14:35 O2 Del Method Room Air 09/09/24 14:35 BMI result Body Mass Index 32.4 Const: General: cooperative, healthy appearing, comfortable and no acute distress Orientation/consciousness: patient oriented x3 Limitations: no limitations HEENT: Head: Yes normal to inspection Ears: hearing grossly normal bilaterally General nose exam: Normal external nose present Face and sinus: Yes normal facial exam Mouth: Normal oral and palatal mucosa present Throat: Yes posterior oropharynx normal Eyes: General: appearance normal, both eyes and all related structures P upils: Equal, round and reactive pupils present Neck: Neck: Yes normal visual inspection Chest: Chest palpation & inspection: normal inspection of the chest Resp: Effort & Inspection: normal respiratory effort Auscultation: clear to auscultation bilaterally Cardio: Rate: regular rate Rhythm: regular rhythm Peripheral pulses: P eripheral pulses 2+ throughout GI: Inspection: Yes normal to inspection Palpation (GI): Soft to palpation and nontender Auscultation: normal bowel sounds Back/Spine/Pelvis: Thoracic/Lumbar Spine: thoracic and lumbar spine normal to inspection Skin: General skin exam: no rashes or lesions noted Neuro: General: patient oriented x3, no focal motor deficits and normal sensation to monofilament Cranial nerves: Yes Equal, round and reactive pupils present Cognition (Neuro): normal cognition Speech: No Abnormal speech present Gait exam (Neuro): Normal gait present Motor exam (neuro): 5/5 motor strength present throughout Extrem: General: Yes normal to inspection Hand/finger images: 1. to the distal nailbed there is a small area of erythema. No swelling, drainage, FROM. Medical Decision Making Medical Decision Making MDM Narrative: 68 yo female with history of schizophrenia, PTSD, hypertension, right hand dominant here with abrasion to right hand 3rd digit noted x several days. Patient reports she bites her nails and bit her nail to close to the nail bed. Now she has some pain at the site and some redness. No fevers, chills, swelling, numbness, tingling or diff moving the finger. To the distal nailbed there is a small area of erythema. No swelling, drainage, FROM No obvious signs of cellulitis. Very small area of skin irritation. Wound care provided. Reviewed wound care for home. Differential Diagnosis Differential Diagnoses: The differential diagnosis associated with the presentation includes abrasion low suspicion for cellulites Admission/Observation Consideration of admission/observation: Escalation of care including admission/observation considered Prescription Management I considered prescription management with: Antibiotic Discharge Plan Discharge Clinical Impression: Abrasion of finger Patient Disposition: Home, Self-Care Instructions: Abrasion (ED) Prescriptions: New mupirocin 2 % ointment 1 appl topical BID Qty: 15 0RF No Action Rexulti 2 mg Tablet 2 mg PO DAILY Qty: 30 0RF benztropine 0.5 mg Tablet 0.5 mg PO BEDTIME Qty: 30 0RF carbidopa-levodopa 25-100 mg Tablet 1 tab PO DAILY Qty: 30 0RF memantine 5 mg Tablet 5 mg PO DAILY Qty: 30 0RF metoprolol tartrate 25 mg Tablet 25 mg PO BID Qty: 60 0RF Protocol: Hold for SBP/HR < HOLD for SBP < : 90 HOLD for HR < : 60 trazodone 100 mg tablet 100 mg PO BEDTIME Qty: 30 0RF sennosides-docusate sodium [Senna Plus] 8.6-50 mg Tablet 1 tab PO BID PRN (Reason: Constipation) Qty: 60 0RF melatonin 3 mg Tablet 6 mg PO BEDTIME Qty: 60 0RF alendronate 70 mg tablet 70 mg PO FR Qty: 4 0RF simvastatin 20 mg tablet 20 mg PO BEDTIME Qty: 30 0RF Referrals: Luciana Winters MD [Primary Care Provider] - 1 week Print Language: [place] Islander
[2024-09-09] MEDS: Bacitracin Oint 0.9 GM PACKET 1 APPL TOPICAL (14:41)
[2024-09-09 14:46] VITALS: BP 139/51; PULSE 54; RESP 18; TEMP 37; O2SAT 96
== END 2024-09-09 14:49 | disposition home or self-care (01) ==
LOC: HO.ED 14:44
PROVIDERS: Emergency Provider Emergency Medicine; PCP Family Medicine
DX: S60.412A Abrasion of right middle finger, initial encounter (principal); X58.XXXA Exposure to other specified factors, initial encounter; Y93.89 Activity, other specified; Y92.9 Unspecified place or not applicable; Y99.9 Unspecified external cause status; F98.8 Other specified behavioral and emotional disorders with onset usually occurring in childhood and adolescence
CPT/HCPCS: 99282; 99283

== ENCOUNTER 2024-09-16 17:16 | Emergency (ER) | payer MEDICARE, MEDICAID, SELFPAY ==
[2024-09-16 17:28] VITALS: BP 140/85; PULSE 59; RESP 18; TEMP 36.6; O2SAT 98; BMI 18.7
--- NOTE | 2024-09-16 17:37 | ED.GENADULT ---
HPI - General Adult General Chief complaint: Extremity Problem Stated complaint: rt finger swollen? Time Seen by Provider: 09/16/24 17:35 Source: patient Mode of arrival: ambulatory Limitations: no limitations History of Present Illness ED Provider: Steve Xie HPI narrative: 68 yold female with pmh of PTSD, UTI, HTN, and Schizoaffective disorder presents to the right 4th finger abrasoin without any trauma. Patient denies any pain, fever, chills, swelling, redness, fever, chills, numbness, or tingling Related Data Previous Rx's ?Medication ?Instructions ?Recorded brexpiprazole 2 mg tablet (Rexulti) 2 mg PO DAILY #30 tabs 07/30/24 alendronate 70 mg tablet 70 mg PO FR #4 tabs 07/31/24 benztropine 0.5 mg tablet 0.5 mg PO BEDTIME #30 tabs 07/31/24 carbidopa 25 mg-levodopa 100 mg 1 tab PO DAILY #30 tabs 07/31/24 tablet melatonin 3 mg tablet 6 mg (2 x 3 mg) PO BEDTIME #60 tabs 07/31/24 memantine 5 mg tablet 5 mg PO DAILY #30 tabs 07/31/24 metoprolol tartrate 25 mg tablet 25 mg PO BID #60 tabs 07/31/24 sennosides 8.6 mg-docusate sodium 1 tab PO BID PRN Constipation #60 07/31/24 50 mg tablet (Senna Plus) tabs simvastatin 20 mg tablet 20 mg PO BEDTIME #30 tabs 07/31/24 trazodone 100 mg tablet 100 mg PO BEDTIME #30 tabs 07/31/24 mupirocin 2 % topical ointment 1 appl topical BID #15 grams 09/09/24 Allergies Allergy/AdvReac Type Severity Reaction Status Date / Time No Known Allergies Allergy Verified 09/16/24 17:32 Review of Systems Review of Systems: right 4th finger abrassion Yes all other systems are reviewed and are negative [facility] Past Medical History Medical History Porcelain gallbladder Schizoaffective disorder Anxiety HLD (hyperlipidemia) HTN (hypertension) Schizophrenia Social History Social History Household Members: Other Household Members Other:: Just a roommate Housing: Apartment Do you presently have visiting nurse or other home services: No Alcohol intake: former Comment: 5-min checks Patient Tobacco Use Status: Never used Tobacco e-Cigarette/Vaping Use: Never Used Advance Directives: No Advance Directives Information Provided: No Do you have a plan to hurt others: No Plan service: No Current 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 status: 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 Sexual orientation: Straight/Heterosexual Physical Exam ED Vital Signs: Vital Signs - 24 hr 09/16/24 17:28 09/16/24 17:45 Temperature 97.9 F 97.9 F Pulse Rate 59 59 Respiratory Rate 18 18 Blood Pressure 140/85 H 140/85 H Pulse Oximetry 98 98 Oxygen Delivery Method Room Air Room Air BMI result Body Mass Index 18.7 Const General: cooperative, healthy appearing, comfortable, no acute distress, well developed, alert, awake and Physically active Orientation/consciousness: patient oriented x3 HENMT Head: Yes normal to inspection, Yes No palpable skull fracture present, Yes normocephalic and Yes atraumatic Eyes General: appearance normal, both eyes and all related structures Neck Neck: Yes normal visual inspection, Yes full ROM, Yes no lymphadenopathy, Yes no meningeal signs, Yes trachea midline, Yes supple, No anterior neck swelling and No tender Chest Chest palpation & inspection: normal inspection of the chest and normal palpation of entire chest wall Resp Effort & Inspection: normal respiratory effort and able to speak in complete sentences Auscultation: clear to auscultation bilaterally Cardio Jugular venous distension: no JVD Heart sounds: S1 normal heart sound present and S2 normal heart sound present GI Inspection: Yes normal to inspection Palpation (GI): Soft to palpation, not firm, nontender, no guarding and not rigid General: Yes no CVA tenderness Back/Spine/Pelvis Back: no CVA tenderness and No back tenderness Skin General skin exam: no rashes or lesions noted, elasticity normal and turgor normal Neuro General: patient oriented x3, gait normal, tone normal, moves all extremities, Normal light touch and pain sensation, no meningeal signs, no focal motor deficits, CN's II-XI intact bilaterally and normal sensation to monofilament Extrem Hand/finger images:  1. Small abrasion. Negative for active bleeding, erythema, swelling, deformity, tenderness, ecchymosis,pus discharge, foul odor, or crepitus. Capillary refills intact. Rest of extremity normal. Motor/neuro/vascular exam intact Psych Appearance: grossly normal, well kempt and not disheveled Course Course Course Narrative: RME: 60-year-old female presents to ED for right 4th digit abrasion without any trauma. patient denies any swelling, ecchymosis, deformitites, human bite, hotness, coldness, or obvious erythema. Physical exam positive for abrasions. Negative for any signs of cellulitis, paronychia, tenosynovitis,, arterial occlusion, necrotizing fasciitis, or other life-threatening etiology. Patient explained worrisome signs and informed to return to the ED immediately. Medical Decision Making Medical Decision Making MDM Narrative: 60-year-old female presents to ED for right 4th digit abrasion without any trauma. patient denies any swelling, ecchymosis, deformitites, human bite, hotness, coldness, or obvious erythema. Physical exam positive for abrasions. Negative for any signs of cellulitis, paronychia, tenosynovitis,, arterial occlusion, necrotizing fasciitis, osteomyelitis, or other life-threatening etiology. Patient explained worrisome signs and informed to return to the ED immediately. Differential Diagnosis Differential Diagnoses: The differential diagnosis associated with the presentation includes (parynochia, abrasions, cellulitits) Admission/Observation Consideration of admission/observation: Escalation of care including admission/observation considered Independent Historian Clinical information obtained from an independent historian. History obtained from or confirmed by: Parent (patient) Prescription Management I considered prescription management with: Pain Medication Discharge Plan Discharge Clinical Impression: Abrasion Patient Disposition: Home, Self-Care Instructions: Abrasion (ED) Additional Instructions: Presently no intervention needed for abrasion. Return to the ED immediately for any redness, swelling, bluish black discoloration, pus discharge, foul odor, fever chills, stiffness, red streaks, or any other concerning symptoms. Prescriptions: No Action Rexulti 2 mg Tablet 2 mg PO DAILY Qty: 30 0RF benztropine 0.5 mg Tablet 0.5 mg PO BEDTIME Qty: 30 0RF carbidopa-levodopa 25-100 mg Tablet 1 tab PO DAILY Qty: 30 0RF memantine 5 mg Tablet 5 mg PO DAILY Qty: 30 0RF metoprolol tartrate 25 mg Tablet 25 mg PO BID Qty: 60 0RF Protocol: Hold for SBP/HR < HOLD for SBP < : 90 HOLD for HR < : 60 trazodone 100 mg tablet 100 mg PO BEDTIME Qty: 30 0RF sennosides-docusate sodium [Senna Plus] 8.6-50 mg Tablet 1 tab PO BID PRN (Reason: Constipation) Qty: 60 0RF melatonin 3 mg Tablet 6 mg PO BEDTIME Qty: 60 0RF alendronate 70 mg tablet 70 mg PO FR Qty: 4 0RF simvastatin 20 mg tablet 20 mg PO BEDTIME Qty: 30 0RF mupirocin 2 % ointment 1 appl topical BID Qty: 15 0RF Referrals: Luciana Winters MD [Primary Care Provider, Internal Medicine] - 3 days Referral Note: Abrasion Clinical Impression: Abrasion Interventions: ED Discharge Assessment Last Done: 09/16/24 17:45 Discharge Date/Time: 09/16/24 17:49 Print Language: Serbian
[2024-09-16 17:45] VITALS: BP 140/85; PULSE 59; RESP 18; TEMP 36.6; O2SAT 98
== END 2024-09-16 17:49 | disposition home or self-care (01) ==
PROVIDERS: Emergency Provider Emergency Medicine Emergency Medical Services; PCP Family Medicine
DX: S60.416A Abrasion of right little finger, initial encounter (principal); X58.XXXA Exposure to other specified factors, initial encounter; Y93.9 Activity, unspecified; Y92.9 Unspecified place or not applicable; Y99.8 Other external cause status
CPT/HCPCS: 99282

== ENCOUNTER 2024-09-22 06:17 | Emergency (ER) | payer MEDICARE, MEDICAID, SELFPAY ==
--- NOTE | 2024-09-22 06:20 | ED.GENADULT ---
HPI - General Adult General Stated complaint: over biten nail Time Seen by Provider: 09/22/24 06:19 Source: patient and EMS Mode of arrival: EMS Limitations: no limitations History of Present Illness ED Provider: Dr. Yamilka Campos HPI narrative: Patient comes to the emergency room complaining of nail pain on the right hand middle finger. Patient states that she bit her nails and she is complaining of pain now. Denies any other injuries. Related Data Previous Rx's ?Medication ?Instructions ?Recorded brexpiprazole 2 mg tablet (Rexulti) 2 mg PO DAILY #30 tabs 07/30/24 alendronate 70 mg tablet 70 mg PO FR #4 tabs 07/31/24 benztropine 0.5 mg tablet 0.5 mg PO BEDTIME #30 tabs 07/31/24 carbidopa 25 mg-levodopa 100 mg 1 tab PO DAILY #30 tabs 07/31/24 tablet melatonin 3 mg tablet 6 mg (2 x 3 mg) PO BEDTIME #60 tabs 07/31/24 memantine 5 mg tablet 5 mg PO DAILY #30 tabs 07/31/24 metoprolol tartrate 25 mg tablet 25 mg PO BID #60 tabs 07/31/24 sennosides 8.6 mg-docusate sodium 1 tab PO BID PRN Constipation #60 07/31/24 50 mg tablet (Senna Plus) tabs simvastatin 20 mg tablet 20 mg PO BEDTIME #30 tabs 07/31/24 trazodone 100 mg tablet 100 mg PO BEDTIME #30 tabs 07/31/24 mupirocin 2 % topical ointment 1 appl topical BID #15 grams 09/09/24 Allergies Allergy/AdvReac Type Severity Reaction Status Date / Time No Known Allergies Allergy Verified 09/16/24 17:32 Review of Systems Review of Systems: Constitutional : No Weight loss, No Fever, No Chills, No Night Sweats, No Fatigue, No Malaise ENT/Mouth : No Hearing loss, No Ear Pain, No Nasal Congestion, No Sinus Pain, No Hoarseness, No sore throat, No Rhinorrhea, No Swallowing Difficulty Eyes: No Eye Pain, No Swelling, No Redness, No Foreign Body, No Discharge, No Vision Changes Cardiovascular : No Chest Pain, No SOB, No Dyspnea on Exertion, No Orthopnea, No Edema, No Palpitations Respiratory : No Cough, No Sputum, No Wheezing, No Smoke Exposure, No Dyspnea Gastrointestinal : No Nausea, No Vomiting, No Diarrhea, No Constipation, No abdominal Pain, No Hematochezia, No Melena Genitourinary : no irregular bleeding, No Dysuria, No Urinary Frequency, No Hematuria, No Urinary Incontinence, No Urgency, No Flank Pain, No Urinary Flow Changes, No Hesitancy Musculoskeletal : No joint pain, No Myalgias, No Joint Swelling Skin : Complaining of nail injury from biting her nails. Neuro : No Weakness, No Numbness, No Paresthesias, No Loss of Consciousness, No Dizziness, No Headache Psych : No Anxiety/Panic, No Depression, No SI/HI/AH/VH, No Social Issues, Heme/Lymph: No Bruising, No Bleeding,No Lymphadenopathy Endocrine : No Polyuria, No Polydipsia, No Temperature Intolerance PMFSH Past Medical History Medical History Porcelain gallbladder Schizoaffective disorder Anxiety HLD (hyperlipidemia) HTN (hypertension) Schizophrenia Social History Social History Household Members: Other Household Members Other:: Just a roommate Housing: Apartment Do you presently have visiting nurse or other home services: No Alcohol intake: former Comment: 5-min checks Patient Tobacco Use Status: Never used Tobacco e-Cigarette/Vaping Use: Never Used service: No Current 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 status: 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 Oriented X3. No acute distress. Eyes: Pupils equal, round and reactive to light. ENT: Pharynx normal. Neck: Normal inspection. Neck supple. No lymph nodes noted. No crepitus CVS: Normal heart rate and rhythm. Pulses normal. Normal S1 and S2 Respiratory: No respiratory distress. Breath sounds normal. No Wheezing. No rales Abdomen: Soft and nontender. No rigidity. No distention. Skin: Skin warm and dry. Normal skin color. Normal skin turgor. Patient's middle finger nail is short, not bleeding, no paronychia Extremities: No lower extremity edema. No Lacerations. No Rash Neuro: Oriented X 3. No motor deficit. No sensory deficit. Moving all extremities. No slurred speech. CN 2 through 12 grossly intact Psych: calm, cooperative, normal affect Medical Decision Making Medical Decision Making MDM Narrative: Patient has a very minimal cut on her finger nail and the lateral aspect of the 4 finger. Bacitracin and a Band-Aid was applied. Discharge Plan Discharge Clinical Impression: Nail complaint Patient Disposition: Home, Self-Care Instructions: Laceration (ED) Additional Instructions: Please follow-up with your primary care physician tomorrow. If you have any worsening or new symptoms, please return to the emergency room or call 911 Prescriptions: No Action Rexulti 2 mg Tablet 2 mg PO DAILY Qty: 30 0RF benztropine 0.5 mg Tablet 0.5 mg PO BEDTIME Qty: 30 0RF carbidopa-levodopa 25-100 mg Tablet 1 tab PO DAILY Qty: 30 0RF memantine 5 mg Tablet 5 mg PO DAILY Qty: 30 0RF metoprolol tartrate 25 mg Tablet 25 mg PO BID Qty: 60 0RF Protocol: Hold for SBP/HR < HOLD for SBP < : 90 HOLD for HR < : 60 trazodone 100 mg tablet 100 mg PO BEDTIME Qty: 30 0RF sennosides-docusate sodium [Senna Plus] 8.6-50 mg Tablet 1 tab PO BID PRN (Reason: Constipation) Qty: 60 0RF melatonin 3 mg Tablet 6 mg PO BEDTIME Qty: 60 0RF alendronate 70 mg tablet 70 mg PO FR Qty: 4 0RF simvastatin 20 mg tablet 20 mg PO BEDTIME Qty: 30 0RF mupirocin 2 % ointment 1 appl topical BID Qty: 15 0RF Print Language: Kyrgyz
[2024-09-22 06:21] VITALS: BP 120/86; PULSE 90; O2SAT 99; BMI 18.4
[2024-09-22 06:34] VITALS: BP 146/74; PULSE 60; RESP 16; TEMP 36.7; O2SAT 98
[2024-09-22] MEDS: Bacitracin Oint 0.9 GM PACKET 1 APPL TOPICAL (06:48)
[2024-09-22 06:50] VITALS: BP 146/74; PULSE 60; RESP 16; TEMP 36.7; O2SAT 98
== END 2024-09-22 06:52 | disposition home or self-care (01) ==
PROVIDERS: Emergency Provider Emergency Medicine
DX: M79.644 Pain in right finger(s) (principal); Z79.899 Other long term (current) drug therapy
CPT/HCPCS: 99283; 99284

== ENCOUNTER 2024-09-27 05:14 | Inpatient (IN) | payer MEDICARE, MEDICAID, SELFPAY ==
[2024-09-27] VITALS (9 sets, daily range): BP systolic 120–150; BP diastolic 58–92; PULSE 47–71; RESP 16–18; TEMP 36.1–37; O2SAT 96–98; BMI 18.5
[2024-09-27 05:54] LABS: MANUAL DIFF FLAG NO
[2024-09-27 05:59] LABS: Hematocrit 39.5 % (37.0-47.0); Hemoglobin 13.1 g/dl (12.0-16.0); Imm Gran Abs Auto 0.02 X10*3/uL (0.00-0.03); Imm Gran Pct Auto 0.3 % (0.0-0.4); Lymphocytes Absolute Auto 1.4 X10*3/uL (1.2-4.9); Mean Corpuscular HGB Conc 33.2 g/dl (31.0-35.0); Mean Corpuscular Hemoglobin 29.2 pg (27.0-33.0); Mean Corpuscular Volume 88.0 fL (80.0-98.0); NRBC Abs Auto 0.000 X10*3/uL (0.0-0.012); NRBC Pct Auto 0.0 /100WBC (0.0-0.2); Platelet Count 141 X10*3/uL (160-400); Red Blood Count 4.49 X10*6/uL (4.20-5.50); White Blood Count 6.4 X10*3/uL (4.8-10.8)
--- NOTE | 2024-09-27 05:59 | ED.PSYCH ---
HPI - Psych General Chief Complaint: Psychiatric Symptoms Stated Complaint: redness on her knee Time Seen by Provider: 09/27/24 05:26 Source: patient and EMS Mode of arrival: EMS Limitations: other (poor historian) History of Present Illness ED Provider: MALKA GLASER Narrative: 68 yo female with PMH of schizophrenia, UTI, PTSD, anxiety who has been here 4 times in the past 3 weeks for minor complaints - the patient has been calling EMS for minor numerous complaints. The patient is very frail and thin. She tells me she is eating and taking her medications. She lives with her grandson who told EMS he thinks there is something psychiatric going on. Patient denies SI/HI. MD complaint: feels depressed and anxiety Onset (ago): week(s) Duration: intermittent History of same: Yes Relieving factors: other Exacerbating factors: none Associated psychiatric symptoms: none Associated symptoms: other (c/o R knee looking red at home but now negative) Treatments prior to arrival: none Related Data Home Medications ?Medication ?Instructions ?Recorded ?Confirmed carbidopa 25 mg-levodopa 100 mg 1 tab PO BID@0900,1200 09/27/24 09/27/24 tablet Previous Rx's ?Medication ?Instructions ?Recorded brexpiprazole 2 mg tablet (Rexulti) 2 mg PO DAILY #30 tabs 07/30/24 alendronate 70 mg tablet 70 mg PO FR #4 tabs 07/31/24 benztropine 0.5 mg tablet 0.5 mg PO BEDTIME #30 tabs 07/31/24 melatonin 3 mg tablet 6 mg (2 x 3 mg) PO BEDTIME #60 tabs 07/31/24 memantine 5 mg tablet 5 mg PO DAILY #30 tabs 07/31/24 metoprolol tartrate 25 mg tablet 25 mg PO BID #60 tabs 07/31/24 sennosides 8.6 mg-docusate sodium 1 tab PO BID PRN Constipation #60 07/31/24 50 mg tablet (Senna Plus) tabs simvastatin 20 mg tablet 20 mg PO BEDTIME #30 tabs 07/31/24 trazodone 100 mg tablet 100 mg PO BEDTIME #30 tabs 07/31/24 mupirocin 2 % topical ointment 1 appl topical BID #15 grams 09/09/24 Allergies Allergy/AdvReac Type Severity Reaction Status Date / Time No Known Allergies Allergy Verified 09/27/24 05:26 Review of Systems Review of Systems: Constitutional : No Fever, No Chills, No Fatigue ENT/Mouth : No sore throat, No Rhinorrhea Eyes: No Eye Pain, No Swelling, No Redness Cardiovascular : No Chest Pain, No SOB, No Dyspnea on Exertion Respiratory : No Cough, No Sputum Gastrointestinal : No Nausea, No Vomiting, No Diarrhea, No abdominal Pain Genitourinary : No Dysuria, No Urinary Frequency, No Hematuria, Musculoskeletal : No joint pain, No Myalgias, No Joint Swelling Skin : No Skin Lesions, No rash Neuro : pos Weakness, No Numbness, No Dizziness,no Headache All other systems reviewed and are negative [facility] Past Medical History Attestation statement: The following information was validated with the patient. Source: old records reviewed Medical History Porcelain gallbladder Schizoaffective disorder Anxiety HLD (hyperlipidemia) HTN (hypertension) Schizophrenia Social History Social History Household Members: Friend(s) Household Members Other:: Roommate Housing: Apartment Do you presently have visiting nurse or other home services: Yes ([facility] [phone]) Alcohol intake: former Comment: 5-min checks Patient Tobacco Use Status: Former Tobacco user Smoked in Last 30 Days: No e-Cigarette/Vaping Use: Never Used Currently Displaying Signs/Symptoms of Drug Intoxication Withdrawal: No Advance Directives: No Advance Directives Information Provided: Yes Do you have thoughts of harming others: None Do you have a plan to hurt others: No Plan Recently lost weight without trying: Yes Nutrition Risks: Poor intake 0-25% >4 days Patient : No : No Poor oral hygiene: No service: No Current 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 Oriented X3. No acute distress. Frail thin and cachectic, nervous appearing, looking around ?responding to internal stimuli Eyes: Pupils equal, round and reactive to light. ENT: Pharynx normal. Neck: Normal inspection. Neck supple. CVS: Normal heart rate and rhythm. Pulses normal. Respiratory: No respiratory distress. Breath sounds normal. Abdomen: Soft and nontender. Skin: Skin warm and dry. Normal skin color. Extremities: No lower extremity edema. Neuro: Oriented X 3. No motor deficit. No sensory deficit. CN2-12 intact Course Course Course Narrative: Time: 08:19 Date: 09/27/24 Provider: TIM Lopez Patient in physician observation for psychiatric evaluation.? No acute events reported overnight. No current complaints. VS stable.? Patient is pending CARE team evaluation. Will continue to monitor. Reevaluation(s) Reevaluation #1: Time: 14:30 Date: 09/28/24 Provider: Loida Yun DO Physician observation ended at 1430. Patient to be admitted as inpatient to psychiatry. Medications Administered Generic Name Dose Route Start Last Admin Trade Name Freq PRN Reason Stop Dose Admin Atorvastatin Calcium 10 mg 09/27/24 21:00 09/30/24 21:39 Atorvastatin Calcium 10 Mg Tablet PO 10 mg BEDTIME SHAQ Administration Benztropine Mesylate 0.5 mg 09/27/24 21:00 09/30/24 21:39 Benztropine Mesylate 0.5 Mg Tablet PO 0.5 mg BEDTIME SHAQ Administration Brexpiprazole 2 mg 09/27/24 18:40 10/01/24 08:23 Brexpiprazole 2 Mg Tablet PO 2 mg DAILY SHAQ Administration Carbidopa/Levodopa 1 tab 09/27/24 18:40 10/01/24 08:23 Carbidopa/Levodopa 25/100 Tablet PO 1 tab BID@0900,1200 SHAQ Administration Melatonin 6 mg 09/27/24 21:00 09/30/24 21:39 Melatonin 3 Mg Tablet PO 6 mg BEDTIME SHAQ Administration Memantine 5 mg 09/27/24 18:35 10/01/24 08:22 Memantine Hcl 5 Mg Tablet PO 5 mg DAILY SHAQ Administration Metoprolol Tartrate 25 mg 09/27/24 21:00 10/01/24 08:23 Metoprolol Tartrate 25 Mg Tablet PO 25 mg BID SHAQ Administration Protocol Mupirocin 1 appl 09/27/24 21:00 10/01/24 08:24 Mupirocin 2 % Oint 22 Gm Tube TOPICAL Not Given BID [facility] Protocol Trazodone HCl 100 mg 09/27/24 21:00 09/30/24 21:39 Trazodone Hcl 100 Mg Tablet PO 100 mg BEDTIME SHAQ Administration Trazodone HCl 50 mg 09/28/24 12:34 09/28/24 20:42 Trazodone Hcl 50 Mg Tablet PO 50 mg BEDTIME PRN Administration Insomnia Medical Decision Making Medical Decision Making MDM Narrative: 68 yo female with PMH of schizophrenia, UTI, PTSD, anxiety here with FTT, repeat numerous calls to 911 recently for minor issue then declines transport she appears disheveled though she is oriented x 3 she stares off at times then snaps back to the conversation. She is very anxious and appears at times to be responding to internal stimuli during the conversation. I have no concerns for her R knee there is no redness or any other abnormality. I am concerned she is decompensated. I will obtain labs and refer to CARE team. 07:50: I was informed by the patient's nurses that occasionally the patient's heart rate dropped to the 40s. However, patient is asymptomatic. Patient is awake, alert, eating breakfast Orthostatic vitals are negative, patient asymptomatic. Patient was walked around the emergency room, heart rate appropriately increases to 60. Patient returned to her bed with no complaints, feeling well. Back to eating breakfast Differential Diagnosis Differential Diagnoses: The differential diagnosis associated with the presentation includes schizophrenia, decompensation, possible UTI Admission/Observation Consideration of admission/observation: Escalation of care including admission/observation considered physician observation started at 624am pending CARE team signed out to oncoming provider to follow up UA Consult Healthcare Provider Management of the patient was discussed with: Behavioral Health Provider Lab Data [facility] Lab Attestation statement: I reviewed the patient's lab results. 09/27/24 05:41 09/29/24 07:23 Labs: Lab Results 09/27/24 09/27/24 Range/Units 05:41 10:38 WBC 6.4 (4.8-10.8) X10*3/uL RBC 4.49 (4.20-5.50) X10*6/uL Hgb 13.1 (12.0-16.0) g/dl Hct 39.5 (37.0-47.0) % MCV 88.0 (80.0-98.0) fL MCH 29.2 (27.0-33.0) pg MCHC 33.2 (31.0-35.0) g/dl RDW 12.7 (11.0-16.0) % Plt Count 141 L D (160-400) X10*3/uL MPV 13.7 H (9.4-12.3) fL Immature Gran % (Auto) 0.3 (0.0-0.4) % Neut % (Auto) 64.0 (45-73) % Lymph % (Auto) 22.3 (20-40) % [place] % (Auto) 10.4 (2-11) % Eos % (Auto) 2.5 (0-4) % Baso % (Auto) 0.5 (0-2) % Lymph # (Auto) 1.4 (1.2-4.9) X10*3/uL [place] # (Auto) 0.7 (0.1-1.2) X10*3/uL Eos # (Auto) 0.2 (0.0-0.4) X10*3/uL Baso # (Auto) 0.0 (0.0-0.2) X10*3/uL Abs Immat Gran (auto) 0.02 (0.00-0.03) X10*3/uL Absolute Neuts (auto) 4.1 (2.0-8.3) x10*3/uL Absolute Nucleated RBC 0.000 (0.0-0.012) X10*3/uL Nucleated RBC % (auto) 0.0 (0.0-0.2) /100WBC Sodium 141 (135-145) mmol/L Potassium 3.7 (3.3-5.1) mmol/L Chloride 109 H (96-108) mmol/L Carbon Dioxide 25 (22-29) mmol/L Anion Gap 11 L (12-20) BUN 13 (9-16) mg/dL Creatinine 0.73 (0.5-1.4) mg/dL Estim Creat Clear Calc 57.0 Estimated GFR > 60 Random Glucose 111 (60-115) mg/dL Calcium 9.2 (8.4-10.2) mg/dL Magnesium 1.9 (1.6-2.6) mg/dL Total Bilirubin 0.5 (0.0-1.0) mg/dL Direct Bilirubin 0.2 (0.0-0.5) mg/dL AST 19 (5-31) U/L ALT 9 (0-31) U/L Alkaline Phosphatase 66 (39-117) U/L Total Protein 6.4 L (6.5-8.0) g/dL Albumin 3.9 (3.5-5.0) g/dL TSH 0.95 (0.32-4.0) uIU/mL Urine Color Yellow Urine Appearance Clear Urine pH 6.0 (5.0-9.0) Ur Specific Gilson 1.015 (1.005-1.025) Urine Protein Negative (Neg-Trace) mg/dL Urine Glucose (UA) Negative (Negative) mg/dL Urine Ketones Negative (Negative) mg/dL Urine Blood Negative (Negative) Urine Nitrite Positive H (Negative) Ur Leukocyte Esterase Large (3+) H (Negative) Urine RBC 0-2 (0-2) /HPF Urine WBC 6-10 H (0-5) /HPF Ur Squamous Epith Cells 0-2 (0-2) /HPF Urine Bacteria 4+ (None Seen) Hyaline Casts 0-2 (0-2) /LPF Urine Opiates Screen Not Detected (Not Detect) Ur Buprenorphine Scrn Not Detected (Not Detect) ng/mL Ur Oxycodone Screen Not Detected (Not Detect) ng/mL Urine Methadone Screen Not Detected (Not Detect) ng/mL Urine Fentanyl Screen Not Detected (Not Detect) Ur Barbiturates Screen Not Detected (Not Detect) Ur Phencyclidine Scrn Not Detected (Not Detect) Ur Amphetamines Screen Not Detected (Not Detect) U Benzodiazepines Scrn Not Detected (Not Detect) Urine Cocaine Screen Not Detected (Not Detect) U Marijuana (THC) Screen Not Detected (Not Detect) Independent Historian Clinical information obtained from an independent historian. History obtained from or confirmed by: EMS External Record Review External record reviewed: Inpatient record and Outpatient record Social Determinants Patient?s care significantly limited by Social Determinants of Health including: Problems related to primary support group Discharge Plan Discharge Clinical Impression: Schizoaffective disorder Qualifiers: Schizoaffective disorder type: unspecified Qualified Code(s): F25.9 - Schizoaffective disorder, unspecified Patient Disposition: Admitted As Inpatient Discharge Date/Time: 09/28/24 14:30
[2024-09-27 06:17] LABS: Alanine Aminotransferase 9 U/L (0-31); Albumin Level 3.9 g/dL (3.5-5.0); Alkaline Phosphatase 66 U/L (39-117); Anion Gap 11 (12-20); Aspartate Amino Transferase 19 U/L (5-31); Blood Urea Nitrogen 13 mg/dL (9-16); Calcium 9.2 mg/dL (8.4-10.2); Carbon Dioxide 25 mmol/L (22-29); Chloride 109 mmol/L (96-108); Creatinine Clr Calc Pharmacy 57.0; Estimated Glomerular Filt Rate > 60; Magnesium 1.9 mg/dL (1.6-2.6); Potassium 3.7 mmol/L (3.3-5.1); Sodium 141 mmol/L (135-145); Total Protein 6.4 g/dL (6.5-8.0)
--- OUTSIDE RECORDS SUMMARY | 2024-09-27 06:41 | XMS_ITS | Encounter Summary ---
Author Organization [facility] Address [address] [place] [address] Care Team Providers Care French Folding Machine Operator Name Role Phone Simon Katz MD Primary Care Provider [phone] Encounter Details Date Type Department Care Team (Late st Contact Info) Description 03/07/2024 Lab Requisition [facility] - Main Lab [address] [place] [address] Simon Katz MD [address] [facility] [address] [place], [phone] Essential (primary) hypertension; Poikiloderma vasculare atrophicans; [...] LAB CHEMISTRY METHOD 03/07/2024 12:26 PM EST [facility] Potassium 3.8 3.5 - 5.5 mmol/L LAB CHEMISTRY METHOD 03/07/2024 12:26 PM [facility] Chloride 109 96 - 110 mmol/L LAB CHEMISTRY METHOD 03/07/2024 12:26 PM [facility] CO2 26 21 - 32 mmol/L LAB CHEMISTRY METHOD 03/07/2024 12:26 PM [facility] Anion Gap 9 3 - 11 LAB CHEMISTRY METHOD 03/07/2024 12:26 PM [facility] Glucose 111(H) 70 - 100 mg/dL LAB CHEMISTRY METHOD 03/07/2024 12:26 PM [facility] BUN 16 5 - 25 mg/dL LAB CHEMISTRY METHOD 03/07/2024 12:26 PM [facility] Creatinine 0.72 0.50 - 1.10 mg/dL LAB CHEMISTRY METHOD 03/07/2024 12:26 PM [facility] eGFR 91 >=60 mL/min/1. 73m2 LAB CHEMISTRY METHOD 03/07/2024 12:26 PM [facility] Comment:Calculation based on the Chronic Kidney Disease Epidemiology Collaboration (CKD-EPI) equation refit without adjustment for race. BUN/Creatinine Ratio 22.2 LAB CHEMISTRY METHOD 03/07/2024 12:26 PM [facility] Calcium 9.2 8.5 - 10.5 mg/dL LAB CHEMISTRY METHOD 03/07/2024 12:26 PM [facility] Blood Venous blood specimen / Unknown Venipuncture / Unknown 03/07/2024 8:35 AM EST 03/07/2024 10:21 AM EST us Simon Katz MD LAB BLOOD ORDERABLES Final Resul t [facility] [address] [place] [address], * (ABNORMAL) Complete blood count (03/07/2024 8:35 AM EST) [facility] WBC 5.4 4.8 - 10.8 K/mcL LAB HEMETOLOGY METHOD 03/07/2024 12:32 PM [facility] RBC 3.70(L) 3.80 - 4.80 M/mcL LAB HEMETOLOGY METHOD 03/07/2024 12:32 PM [facility] Hemoglobin 10.7(L) 11.5 - 16.0 g/dL LAB HEMETOLOGY METHOD 03/07/2024 12:32 PM [facility] Hematocrit 33.9(L) 35.0 - 47.0 % LAB HEMETOLOGY METHOD 03/07/2024 12:32 PM [facility] MCV 92.4 79.0 - 98.0 FL LAB HEMETOLOGY METHOD 03/07/2024 12:32 PM [facility] MCH 29.2 27.0 - 32.0 pcg LAB HEMETOLOGY METHOD 03/07/2024 12:32 PM [facility] MCHC 31.6(L) 32.0 - 37.0 g/dL LAB HEMETOLOGY METHOD 03/07/2024 12:32 PM [facility] RDW 13.3 11.0 - 15.0 % LAB HEMETOLOGY METHOD 03/07/2024 12:32 PM [facility] Platelets 164 130 - 400 K/mcL LAB HEMETOLOGY METHOD 03/07/2024 12:32 PM [facility] MPV 13.2(H) 7.0 - 11.0 FL LAB HEMETOLOGY METHOD 03/07/2024 12:32 PM [facility] NRBC 0.0 <1.0 % LAB HEMETOLOGY METHOD 03/07/2024 12:32 PM [facility] NRBC Absolute 0.00 <0.10 K/mcL LAB HEMETOLOGY METHOD 03/07/2024 12:32 PM EST [facility] Blood Venous blood specimen / Unknown Venipuncture / Unknown 03/07/2024 8:35 AM EST 03/07/2024 10:21 AM EST us Simon Katz MD LAB BLOOD ORDERABLES Final Resul t [facility] [address] [place] [address], documented in this encounter Visit Diagnoses Diagnosis Essential (primary) hypertension Unspecified essential hypertension Poikiloderma vasculare atrophicans Encounter for examination for [facility] documented in this encounter Care Teams French Folding Machine Operator Relationship Specialty Start Date End Date Simon Katz MD [address] [place] [address], [phone] PCP - General Family Medicine 02/03/24 documented as of this encounter
--- NOTE | 2024-09-27 06:44 | PC.NURSE ---
upon arrival of pt she denies SI HI.
[2024-09-27 10:48] LABS: Appearance Urine Clear; Glucose Urine UA Negative (Negative); PH 6.0 (5.0-9.0); Specific Gravity - Urine 1.015 (1.005-1.025); UMIC TRIGGER UACC YES
[2024-09-27 10:59] LABS: Cannabinoid Screen Urine Not Detected (Not Detect)
--- NOTE | 2024-09-27 10:59 | PC.NURSE ---
Pt provided meal tray. spoke to pt's VNA JUDE Benavidez ([phone]) over the phone. per Reema pt has been acting very strangely at home, not taking her night meds consistently, wandering in the street, responding to internal stimuli.
[2024-09-27 11:05] LABS: UACC Culture Trigger YES
--- NOTE | 2024-09-27 11:20 | PC.NURSE ---
cub reporter placed elopement band on patient at this time
--- NOTE | 2024-09-27 13:47 | PC.NURSE ---
Pharmacy contacted by RN, need assistance completing her med rec. pt unable to articulate medications or where she gets them from.
--- NOTE | 2024-09-27 16:40 | PHA.MEDREC ---
Addendum entered by Yenifer Lockett RPh 09/27/24 18:09: MED REC REVIEWED BY [facility] Original Note: Pharmacy Consult ? Medication Reconciliation Pharmacy has completed the medication reconciliation. Tried calling [facility] services and pt daughter and had no luck getting in touch. I utilized claims and Dc packet from 07/31 to confirm the med rec; Fenofibrate DC'd 07/31. Will update med rec if VNA services call us or if pt daughter can help us.
[2024-09-28] VITALS (10 sets, daily range): BP systolic 103–151; BP diastolic 64–76; PULSE 40–98; RESP 13–18; TEMP 36.3–36.6; O2SAT 96–98; BMI 18.2
--- NOTE | 2024-09-28 06:00 | PC.NURSE ---
Pt moved to a hospital bed for comfort. Bed alarm in place.
--- NOTE | 2024-09-28 06:49 | PC.NURSE ---
Pt is awake and alert. No apparent distress noted. Pt is bradycardic with HR 40's and asymptomatic. Dr Campos made aware. Verbal orders received for orthostatic vitals and if negative pt can go for a walk to see if the heart rate rises. Monitoring is ongoing.
[2024-09-28 14:17] LABS: Appearance Urine Clear; Glucose Urine UA Negative (Negative); PH 8.0 (5.0-9.0); Specific Gravity - Urine 1.010 (1.005-1.025); UMIC TRIGGER UACC YES
[2024-09-28 14:22] LABS: UACC Culture Trigger YES
--- NOTE | 2024-09-28 15:47 | PC.ADMIT ---
Pt transferred to [facility] via ambulance c/o red knees . Pt is A&O x [address] and time. Pt is confused about why she presented to [facility]. I didn't know I came here in an ambulance! Pt has VNA services who identified pt has not been med compliant and responding to internal stimuli. Pt transferred from [facility] via wheelchair. Safety checks performed upon arrival on unit. Pt is cooperative. Perseverating about a pending court hearing out of state. Pt is unable to complete assessment admission questions. Pt given unit safety rules and contraband list. Pt refused to notify any family members or her medical psychiatric team. Pt encouraged to give time to consider options to notify her medical and psychiatric team as well as family or community members about her status. Pt denies SI, HI, AVH at this time. 4-5/10 in depression and anxiety scales.
--- OUTSIDE RECORDS SUMMARY | 2024-09-28 20:00 | XMS_ITS | Clinical Summary ---
Author Organization Unknown Care Team Providers Care Drivers' Cash Clerk Name Role Phone DEONTE GONZALEZ, MELISSA Unavailable Unavailable TESHA RN, ILIANA Unavailable Unavailable Payers Payer Name Policy Type Policy Number Effective Date Expira tion Date ON DEMAND MEDICARE - [place] - [place] [id number] [facility] [id number] Problems Condition Name Condition Details Condition Category [...] 70 mg tablet 08-01 00:00: 00 Yes [id number] 1 tablet WEEKLY 1 tablet WEEKLY (route: oral) Med Classific ation: Endocrine benztropine 0.5 mg tablet 08-01 00:00: 00 Yes [id number] 1 tablet BEDTIME 1 tablet BEDTIME (route: oral) Med Classific ation: Central Nervous System Agents carbidopa 25 mg-levodopa 100 mg tablet 08-01 00:00: 00 Yes [id number] 1 tablet DAILY 1 tablet DAILY (route: oral) Med Classific ation: Central Nervous System Agents melatonin 3 mg tablet 08-01 00:00: 00 Yes [id number] 2 tablet BEDTIME 2 tablet BEDTIME (route: oral) Med Classific ation: Central Nervous System Agents memantine 5 mg tablet 08-01 00:00: 00 Yes [id number] 1 tablet DAILY 1 tablet DAILY (route: oral) Med Classific ation: Cognitive Disorder Therapy metoprolol tartrate 25 mg tablet 08-01 00:00: 00 Yes [id number] 1 tablet 2 TIMES DAILY 1 tablet 2 TIMES DAILY (route: oral) Med Classific ation: Cardiovas cular Therapy Agents Rexulti 2 mg tablet 08-01 00:00: 00 Yes [id number] 1 tablet DAILY 1 tablet DAILY (route: oral) Med Classific ation: Central Nervous System Agents Senna Laxative 8.6 mg tablet 08-01 00:00: 00 Yes [id number] 1 tablet 2 TIMES DAILY 1 tablet 2 TIMES DAILY (route: oral) Med Classific ation: Gastroint estinal Therapy Agents simvastatin 20 mg tablet 08-01 00:00: 00 Yes [id number] 1 tablet DAILY 1 tablet DAILY (route: oral) Med Classific ation: Cardiovas cular Therapy Agents trazodone 100 mg tablet 08-01 00:00: 00 Yes [id number] 1 tablet BEDTIME 1 tablet BEDTIME (route: oral) Med Classific ation: Central Nervous System Agents Vital Signs Vital Name Observation Time Observation Value Commen ts Temperature 2024-09-25 21:25:00.000 98.6 [degF] Temperature 2024-09-24 11:00:00.000 98.6 [degF] Temperature 2024-09-21 11:02:00.000 98.6 [degF] Temperature 2024-09-20 10:45:00.000 98.6 [degF] Temperature 2024-09-19 10:28:00.000 98.6 [degF] Temperature 2024-09-18 20:56:00.000 98.6 [degF] Temperature 2024-09-17 10:47:00.000 98.6 [degF] Temperature 2024-09-14 10:34:00.000 98.6 [degF] Temperature 2024-09-13 09:33:00.000 98.6 [degF] Temperature 2024-09-12 17:33:00.000 98.6 [degF] Temperature 2024-09-11 10:47:00.000 98.6 [degF] Temperature 2024-09-10 10:03:00.000 98.6 [degF] Temperature 2024-09-07 23:44:00.000 98.6 [degF] Temperature 2024-09-06 09:03:00.000 98.6 [degF] Temperature 2024-09-04 10:32:00.000 98.6 [degF] Temperature 2024-09-03 10:32:00.000 98.6 [degF] Temperature 2024-09-02 10:54:00.000 97.3 [degF] Temperature 2024-09-01 10:41:00.000 97.6 [degF] Temperature 2024-08-31 17:13:00.000 98.6 [degF] Temperature 2024-08-30 09:21:00.000 98.6 [degF] Temperature 2024-08-29 10:59:00.000 98.6 [degF] Temperature 2024-08-29 10:35:00.000 97.8 [degF] Temperature 2024-08-28 19:21:00.000 98.6 [degF] Temperature 2024-08-27 19:54:00.000 98.6 [degF] Temperature 2024-08-27 10:48:00.000 97.9 [degF] Temperature 2024-08-25 10:43:00.000 97.6 [degF] Temperature 2024-08-24 10:41:00.000 98.6 [degF] Temperature 2024-08-23 09:21:00.000 98.6 [degF] Temperature 2024-08-22 10:55:00.000 98.1 [degF] Temperature 2024-08-22 10:28:00.000 98.6 [degF] Temperature 2024-08-21 08:47:00.000 98.6 [degF] Temperature 2024-08-20 10:35:00.000 97.6 [degF] Temperature 2024-08-19 11:00:00.000 97.6 [degF] Temperature 2024-08-18 10:36:00.000 97.6 [degF] Temperature 2024-08-17 10:26:00.000 98.6 [degF] Temperature 2024-08-16 09:55:00.000 98.6 [degF] Temperature 2024-08-15 10:50:00.000 98.1 [degF] Temperature 2024-08-15 09:06:00.000 98.6 [degF] Temperature 2024-08-14 08:52:00.000 98.6 [degF] Temperature [...] kg/m2 Height 2024-08-01 19:04:49.000 64 [in_us] Pulse 2024-09-25 21:25:00.000 82 /min Pulse 2024-09-24 11:00:00.000 82 /min Pulse 2024-09-21 11:02:00.000 70 /min Pulse 2024-09-20 10:45:00.000 82 /min Pulse 2024-09-19 10:28:00.000 68 /min Pulse 2024-09-18 20:56:00.000 82 /min Pulse 2024-09-17 10:47:00.000 72 /min Pulse 2024-09-14 10:34:00.000 78 /min Pulse 2024-09-13 09:33:00.000 82 /min Pulse 2024-09-12 17:33:00.000 86 /min Pulse 2024-09-11 10:47:00.000 82 /min Pulse 2024-09-10 10:03:00.000 72 /min Pulse 2024-09-07 23:44:00.000 78 /min Pulse 2024-09-06 09:03:00.000 84 /min Pulse 2024-09-04 10:32:00.000 82 /min Pulse 2024-09-03 10:32:00.000 82 /min Pulse 2024-09-02 10:55:00.000 60 /min Pulse 2024-09-01 10:42:00.000 60 /min Pulse 2024-08-31 17:13:00.000 88 /min Pulse 2024-08-30 09:21:00.000 82 /min Pulse 2024-08-29 10:59:00.000 78 /min Pulse 2024-08-29 10:35:00.000 60 /min Pulse 2024-08-28 19:21:00.000 82 /min Pulse 2024-08-27 19:54:00.000 82 /min Pulse 2024-08-27 10:48:00.000 60 /min Pulse 2024-08-25 10:43:00.000 60 /min Pulse 2024-08-24 10:41:00.000 82 /min Pulse 2024-08-23 09:21:00.000 78 /min Pulse 2024-08-22 10:55:00.000 75 /min Pulse 2024-08-22 10:28:00.000 82 /min Pulse 2024-08-21 08:47:00.000 82 /min Pulse 2024-08-20 10:35:00.000 84 /min Pulse 2024-08-19 11:00:00.000 69 /min Pulse 2024-08-18 10:36:00.000 64 /min Pulse 2024-08-17 10:26:00.000 82 /min Pulse 2024-08-16 09:55:00.000 82 /min Pulse 2024-08-15 10:50:00.000 60 /min Pulse 2024-08-15 09:06:00.000 70 /min Pulse 2024-08-14 08:52:00.000 80 /min Pulse [...] 78 /min Pulse 2024-08-01 19:29:00.000 72 /min O2 Saturation (%) 2024-09-02 10:55:00.000 96 % O2 Saturation (%) 2024-09-01 10:42:00.000 96 % O2 Saturation (%) 2024-08-20 10:36:00.000 95 % Respirations 2024-09-25 21:25:00.000 20 /min Respirations 2024-09-24 11:00:00.000 20 /min Respirations 2024-09-21 11:02:00.000 20 /min Respirations 2024-09-20 10:45:00.000 20 /min Respirations 2024-09-19 10:28:00.000 20 /min Respirations 2024-09-18 20:56:00.000 20 /min Respirations 2024-09-17 10:47:00.000 20 /min Respirations 2024-09-14 10:34:00.000 20 /min Respirations 2024-09-13 09:33:00.000 20 /min Respirations 2024-09-12 17:33:00.000 20 /min Respirations 2024-09-11 10:47:00.000 20 /min Respirations 2024-09-10 10:03:00.000 20 /min Respirations 2024-09-07 23:44:00.000 20 /min Respirations 2024-09-06 09:03:00.000 20 /min Respirations 2024-09-04 10:32:00.000 20 /min Respirations 2024-09-03 10:32:00.000 20 /min Respirations 2024-09-02 10:54:00.000 16 /min Respirations 2024-09-01 10:41:00.000 16 /min Respirations 2024-08-31 17:13:00.000 20 /min Respirations 2024-08-30 09:21:00.000 20 /min Respirations 2024-08-29 10:59:00.000 20 /min Respirations 2024-08-29 10:35:00.000 18 /min Respirations 2024-08-28 19:21:00.000 20 /min Respirations 2024-08-27 19:54:00.000 20 /min Respirations 2024-08-27 10:48:00.000 18 /min Respirations 2024-08-25 10:43:00.000 16 /min Respirations 2024-08-24 10:41:00.000 20 /min Respirations 2024-08-23 09:21:00.000 20 /min Respirations 2024-08-22 10:55:00.000 18 /min Respirations 2024-08-22 10:28:00.000 20 /min Respirations 2024-08-21 08:47:00.000 20 /min Respirations 2024-08-20 10:35:00.000 16 /min Respirations 2024-08-19 11:00:00.000 16 /min Respirations 2024-08-18 10:36:00.000 16 /min Respirations 2024-08-17 10:26:00.000 20 /min Respirations 2024-08-16 09:55:00.000 20 /min Respirations 2024-08-15 10:50:00.000 18 /min Respirations 2024-08-15 09:06:00.000 20 /min Respirations 2024-08-14 08:52:00.000 20 /min Respirations [...] 2024-08-01 19:06:34.000 112 [lb_av] Systolic Blood Pressure 2024-09-25 21:25:00.000 138 mm [Hg] Systolic Blood Pressure 2024-09-24 11:00:00.000 112 mm [Hg] Systolic Blood Pressure 2024-09-21 11:02:00.000 140 mm [Hg] Systolic Blood Pressure 2024-09-20 10:45:00.000 143 mm [Hg] Systolic Blood Pressure 2024-09-19 10:28:00.000 118 mm [Hg] Systolic Blood Pressure 2024-09-18 20:56:00.000 130 mm [Hg] Systolic Blood Pressure 2024-09-17 10:47:00.000 109 mm [Hg] Systolic Blood Pressure 2024-09-14 10:34:00.000 107 mm [Hg] Systolic Blood Pressure 2024-09-13 09:33:00.000 132 mm [Hg] Systolic Blood Pressure 2024-09-12 17:33:00.000 138 mm [Hg] Systolic Blood Pressure 2024-09-11 10:47:00.000 109 mm [Hg] Systolic Blood Pressure 2024-09-10 10:03:00.000 138 mm [Hg] Systolic Blood Pressure 2024-09-07 23:44:00.000 132 mm [Hg] Systolic Blood Pressure 2024-09-06 09:03:00.000 102 mm [Hg] Systolic Blood Pressure 2024-09-04 10:32:00.000 142 mm [Hg] Systolic Blood Pressure 2024-09-03 10:32:00.000 128 mm [Hg] Systolic Blood Pressure 2024-09-02 10:54:00.000 122 mm [Hg] Systolic Blood Pressure 2024-09-01 10:41:00.000 98 mm[ Hg] Systolic Blood Pressure 2024-08-31 17:13:00.000 142 mm [Hg] Systolic Blood Pressure 2024-08-30 09:21:00.000 108 mm [Hg] Systolic Blood Pressure 2024-08-29 10:59:00.000 128 mm [Hg] Systolic Blood Pressure 2024-08-29 10:35:00.000 108 mm [Hg] Systolic Blood Pressure 2024-08-28 19:22:00.000 128 mm [Hg] Systolic Blood Pressure 2024-08-27 19:54:00.000 132 mm [Hg] Systolic Blood Pressure 2024-08-27 10:48:00.000 112 mm [Hg] Systolic Blood Pressure 2024-08-25 10:43:00.000 112 mm [Hg] Systolic Blood Pressure 2024-08-24 10:41:00.000 132 mm [Hg] Systolic Blood Pressure 2024-08-23 09:21:00.000 103 mm [Hg] Systolic Blood Pressure 2024-08-22 10:55:00.000 142 mm [Hg] Systolic Blood Pressure 2024-08-22 10:28:00.000 142 mm [Hg] Systolic Blood Pressure 2024-08-21 08:47:00.000 128 mm [Hg] Systolic Blood Pressure 2024-08-20 10:35:00.000 122 mm [Hg] Systolic Blood Pressure 2024-08-19 11:00:00.000 122 mm [Hg] Systolic Blood Pressure 2024-08-18 10:36:00.000 128 mm [Hg] Systolic Blood Pressure 2024-08-17 10:26:00.000 137 mm [Hg] Systolic Blood Pressure 2024-08-16 09:55:00.000 121 mm [Hg] Plan of Treatment Planned Activity [...] AWARENESS FOR SAFETY AND WILL NOTIFY CLINICAL IMPROVEMENT COORDINATOR AND PHYSICIAN/PROVIDER WITH ANY CHANGE IN CONDITION. [code = SKILLED NURSE WILL MAINTAIN SITUATIONAL AWARENESS FOR SAFETY AND WILL NOTIFY CLINICAL IMPROVEMENT COORDINATOR AND PHYSICIAN/PROVIDER WITH ANY CHANGE IN CONDITION.] Future Scheduled Test SKILLED NU RSE TO PROVIDE INSTRUCTION TO PATIENT/CAREGIVER RELATED TO DISCHARGE PLANNING. [code = SKILLED NURSE TO PROVIDE INSTRUCTION TO PATIENT/CAREGIVER RELATED TO DISCHARGE PLANNING. ] Future Scheduled Test MEDICATION S WILL BE HELD AND STORED IN MEDICATION SAFE. [code = MEDICATIONS WILL BE HELD AND STORED IN MEDICATION SAFE.] Goal 2024-09-25 Patient Goal - I WANT TO FEEL BETTER AND KNOW MY PILLS. Goal Patient Goal - I WANT TO FEEL BETTER AND KNOW MY PILLS. Goal Provider Goal - A PLAN OF CARE WILL BE ESTABLISHED THAT MEETS PATIENT'S [facility] NEEDS AND INCLUDES PATIENT GOAL FOR HOME [...] Notes Progress Notes <paragraph>[Visit Date: 2024 by ILIANA PARKINSON RN]:</paragraph><paragraph>SN RECERTIFICATION VISIT (09/25/2024) THIS IS A 68 YEAR OLD FEMALE, WITH PRIMARY DIAGNOSIS SCHIZOPHRENIA SEEN TODAY FOR RECERTIFICATION. PMH INCLUDES REPORTED HTN, PARKISON DISEASE, CONSTIPATION, INSOMNIA, TREATED WITH CURRENT MEDICATION REGIMEN, ALTERATION IN GAIT, USES WALKER TO AMBULATE. PATIENT REFERRED TO [facility] AFTER PSYCHIATRIC HOSPITALIZATION AND PCP CARE, THAT REQUESTED SN MEDICATION MANAGEMENT, SN TEACHING ON IDENTIFIED DIAGNOSIS DISEASE PROCESS TREATMENT AND MANAGEMENT AND COORDINATION OF CARE WITH OUTPATIENT PROVIDERS.PATIENT PRESENTS ALERT ORIENTED TO SELF, UNABLE TO RECALL EVENTS OF PAST 24 HOURS. FLAT AFFECT FACIALLY DEPRESSED, ANXIOUS TENSE EXPRESSIONS, DISTRACTED, GUARDED AND PARANOID. SN SUICIDE ASSESSMENT CONTRACTS FOR SAFETY DENIED HAVING ANY SUICIDAL OR HOMICIDAL PLANS DURING VISIT. PATIENT EASILY REDIRECTED, WHEN TRYING TO [place] MEDICATION OR CONFUSED, WILL HOLD PILLS IN A TIGHT FIST. PATIENT PARKISON SYMPTOMS WORSEN, AM MEDICATION ADMINISTERED VIA LOCKED MEDICATION BOX, BEDTIME MEDICATION PREPOURED, R/O IF FORGETTING TO TAKE HS MEDICATION., NOTED DECLINE IN PHYSICAL MENTAL STATUS,. PATIENT IS HOMEBOUND TASKING EFFORT TO LEAVE HOME NEEDS WALKER AND IS COGNITIVELY IMPAIRED , HISTORY OF WANDERING, FOUND IN [place], DIDNOT RECALL HER ADDRESS.PATIENT RESIDES WITH SIGNIFICANT OTHER WHO PROVIDES EMOTIONAL SUPPORT AND SECURES PATIENT SAFETY.PATIENT HAS SELF CARE DEFICITS, RESIST ANALYTICS INTERN, PLAN IS TO CONTINUS TO ENCOURAGE PATIENT TO CONSIDER NEEDED HELP. PATIENT WEARING SAME CLOTHES,SEVERAL DAYS, DISHELVED APPEARANCE, OILY UNCOMBED HAIR. SN TEACHING OF NEED TO GET A DOOR ALARM, TO SECURE SAFETY, PREVENTION WANDERING BEHAVIORS. PATIENT REQUIRES SN VISIT DAILY FOR MEDICATION MANAGEMENT, MEDICATION PREPOUR, VIA USE OF LOCKED MEDICATION BOX, CONFUSED ABOUT MEDICATION REGIMEN, SN TEACHING OF IDENTIFIED DIAGNOSIS, DISEASE PROCESS AND ANY KNOWLEDGE DEFICITS. SN ASSESSMENT OF MENTAL PHYSICAL HEALTH, REPOTING ANY ABNORMAL SYMPTOMS TO MD.SN ASSESSMENT OF SAFETY WITH ADLS/IADLS. SN SUICIDE ASSESSMENT, INCLUDING MENTAL STATUS .SN CALLED PCP FOR MEDICATION RECONCILLIATION AND PATIENTS POC.</paragraph> <paragraph>[Visit Date: 2024 by ILIANA PARKINSON RN]:</paragraph><paragraph>SN VISIT ON 09/24/2024) PATIENT IS HOMEBOUND. PATIENT PRESENTS ALERT ORIENTED TO SELF, NURSING ARRIVAL WAS SITTING OUT IN HALLWAY, RESISTED COMING INTO APARTMENT TO TAKE MEDICATIONS. PATIENT NOTABLY TENSED, FACIALLY DEPRESSED, ANXIOUS, IRRITABLE, PARANOID, SN PLACED PILLS ON PATIENT HANDS, STARED AT PILLS WOULD NOT TAKE PILLS. SN REASSURED PATIENT, ASSISSTANCE IN TAKING PILLS, BY USE OF OF A SPOON, DID SWALLOW PILLS. SN ASSESSED FOR SUICIDAL HOMICIDAL IDEATIONS, DENIEDK CONTRACTS FOR SAFETY, DENIED AUDITORY OR VISUAL HALLUCINATIONS. SN CALLED PATIENT PCP REPORTED PATIENT DECLINING PHYSICAL MENTAL STATUS, INCREASED PARKINSON SYMPTOMS. CAREGIVER REPORTED PROMPTS PATIENT TO TAKE PRE-POURED MEDICATION. PATIENT HAS HISTORY OF WANDERING,AND NOT RECALLING HER ADDRESS. SN DISCUSSED OPTIONS FOR DOOR ALARM, PATIENT STATED TYLER NOT USE ANY ALARMS. SN CALLED PCP PENDING RETURN CALL. SN INSTRUCTED CAREGIVER IF PATIENT HAS COGNITIVE DIFFERENCES FROM BASELINE., ESPECIALLY INCREASED WANDERING. SN CASE CONFERENCE WITH NURSING SERVICE DIRECTOR, AND A REFERRAL FOR PROGRAMMER OPERATOR NUMERICAL CONTROL,.</paragraph> Encounters Start Date/Time End Date/Time Encounter Type Admission Type Attending [facility] Care Department Encounter ID Discharge Date Discharge Status Discharge Condition Discharge Reason Percent Goals Met 2024-08-01 00:00:00 2024-09-29 00:00:00 Outpatient NEW ADMISSION ILIANA PARKINSON [facility] [id number] 17. 50
--- NOTE | 2024-09-29 07:31 | P.HPPS_ITS ---
HPI Date of Service: 09/29/24 Chief Complaint: Psychosis HPI Subjective Notes: Davis Warning and Conditional Voluntary Narrative: As per DEVON allison 09/28/23: 68 year old female who presented to [facility] via EMS due to concerns about her knee being red, Pt has been here 4 times in the past 3 weeks for minor complaints - Pt has been calling EMS for minor numerous complaints. Pt 's VNA stated Pt has been acting strange, non-compliant with medications, responding to internal stimuli and wandering in the street over the past 2-3 weeks. Pt presented to the ER after calling 911 because her knee was red, Pt's roommate reported Pt has been calling 911 for minor medical concerns over the past couple weeks and stating she was going to get her fingers and leg amputated. Pt appears to be responding to internal stimuli and thought blocking throughout assessment, insight and impulse control appear poor and impaired. Pt reported she has been losing weight, not sleeping a lot and spending a lot of time pacing the house. Pt appears fixated on thinking that her finger or knee will need to be amputated due to her medical concerns and has been found wandering the streets at times. Pt was [facility]OC at [facility] in June 2024, Pt 's roommate reported noticing changes the past 2-3 weeks in Pt'a behaviors, temperament and sleep. Pt's mood appears to be dysregulated Discharge Summary 07/31/24: MSE at discharge: Pt is alert and oriented x3, not so much to situation; behavior is cooperative and calm; dressed in casual attire, disheveled; mood is described as okay; eye contact appropriate; Speech is normal rate, volume and not pressured; believes she saw police outside her window; no SI/HI/AH expressed. Appear internally preoccupied pt was admitted on a CV and placed on 5 minutes checks for safety. Pt presented with unsteady gait, needing walker due to risk for falls. She also presented with paranoid ideas thinking police was outside the door looking for her. She appeared internally preoccupied. She denied suicidal or homicidal ideation throughout hospital stay. Pt did not show any signs of aggression towards self or others. She was mostly in her room with minimal engagement with peers. Pt presents with mostly negative symptoms of schizophrenia including difficulty initiating activities (abulia), socially withdrawn and illogical train of thought (connecting unrelated situation or events). She had minimal to no insight into these impairments. 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 She had been on sinemet 25/100 BID, which was decrease to daily in effort to balance exacerbation of psychosis and movement disorder control. She was switched from risperidone total of 3mg/day as higher doses of this high potency antipsychotic will worsen movement disorder, to rexulti. She tolerated rexulti well, which was increased to 2mg po daily. She was also started on namenda for negative symptoms of schizophrenia. She was started on trazodone for sleep, which was titrated to 100mg po qhs. She was taken off remeron for sleep given that it was not effective. She was slightly more visible on the unit and walked with the walker. She seemed more agreeable to complete hygiene care. She had cognitive/memory assessments while on the unit. MOCA 16/30 (severe impairments in executive function/visuo spatial (0/5), recall (0/5), language fluency (0/1) with intact attention, orientation (except for date/day), naming, abstraction). ACL 4.2 showing moderate cognitive impairments. We had family meeting with Ms. Harp's daughter and explained clinical assessments and medication trials. Pt agreed to have VNA come and help with medication management. Today: Patient very guarded with freelance copywriter. Stated she was not doing well but did not want to go into what was happening. Did not want to discuss pre-admission circumstances. Reports he will not take any medications, but is aware the freelance copywriter will order medications so client has the option should she change her mind. Slept okay yesterday. Ate breakfast. Does have an intention tremor, but same not noticeable at rest. Pt perseverating on admission and how long she will be here- can I be discharged in 2 weeks? (in context of discussion on how long and freelance copywriter asking how long past admissions typically were). Educated patient on three-day notice process and davis warning given. Past Psychiatric History: Schizoaffective disorder. Multiple past inpatient psychiatric hospitalizations. Last [facility] [place] 07/31/24: Does not have outpatient psychiatric providers. hx of providers with [employer]. History of SIB via superficial cutting in 2022. Medical Evaluation Reviewed: Yes [facility] Medical History Porcelain gallbladder Schizoaffective disorder Anxiety HLD (hyperlipidemia) HTN (hypertension) Schizophrenia Family History: One of her 2 daughters committed suicide 7 years ago after her father's Social History: lives with a roommate. graduated high school. . 2 daughters, 1 living. Trauma History: yes Diagnostics Vital Signs (24Hr): Vital Signs - 24 hr 09/28/24 09:24 09/28/24 14:10 09/28/24 15:08 Temperature 97.6 F 97.9 F 97.9 F Pulse Rate 60 72 63 Respiratory Rate 18 16 18 Blood Pressure 113/74 112/64 103/71 Pulse Oximetry 97 96 98 Oxygen Delivery Method Room Air Room Air Room Air 09/28/24 19:58 09/28/24 20:00 Temperature 97.5 F 97.5 F Pulse Rate 98 98 Respiratory Rate 15 18 Blood Pressure 137/76 137/76 Pulse Oximetry 97 97 Oxygen Delivery Method Room Air BMI result Body Mass Index 18.2 Labs 09/27/24 05:41 09/29/24 07:23 Labs: Laboratory Results - last 48 hr 09/27/24 09/28/24 10:38 14:06 Urine Color Yellow Yellow Urine Appearance Clear Clear Urine pH 6.0 8.0 Ur Specific [place] 1.015 1.010 Urine Protein Negative Negative Urine Glucose (UA) Negative Negative Urine Ketones Negative Negative Urine Blood Negative Negative Urine Nitrite Positive H Positive H Ur Leukocyte Esterase Large (3+) H Trace H Urine RBC 0-2 0-2 Urine WBC 6-10 H 0-5 Ur Squamous Epith Cells 0-2 0-2 Urine Bacteria 4+ 4+ Hyaline Casts 0-2 0-2 Urine Opiates Screen Not Detected Ur Buprenorphine Scrn Not Detected Ur Oxycodone Screen Not Detected Urine Methadone Screen Not Detected Urine Fentanyl Screen Not Detected Ur Barbiturates Screen Not Detected Ur Phencyclidine Scrn Not Detected Ur Amphetamines Screen Not Detected U Benzodiazepines Scrn Not Detected Urine Cocaine Screen Not Detected U Marijuana (THC) Screen Not Detected Meds/Allergies Meds Home Medications ?Medication ?Instructions ?Recorded ?Confirmed ?Type carbidopa 25 mg-levodopa 100 mg 1 tab PO BID@0900,1200 09/27/24 09/27/24 History tablet Allergies Allergies Allergy/AdvReac Type Severity Reaction Status Date / Time No Known Allergies Allergy Verified 09/27/24 05:26 Assessment & Plan Assessment & Plan (1) Schizoaffective disorder: Status: Acute Qualifiers: Schizoaffective disorder type: unspecified Qualified Code(s): F25.9 - Schizoaffective disorder, unspecified Code(s): F25.9 - Schizoaffective disorder, unspecified Plan Readmission in the context of medication non adherence. Off medications significant delusions, disorganized behavior, noticeable concern from Roommate and visiting nurse services. patient does present as guarded and paranoid. Perseverative on discharge. Reports he will not take medications however will order same so patient has the option should they change of mind. Educated on 3 day notice and Davis Warning should they choose to perceive same, otherwise admitted on voluntary status. Patient educated on: medication risk/benefits Informed Consent: further education needed Reason for continued inpatient stay Substantial Risk for: inability to function Statement Statement: I have reviewed the history and physical and performed a pertinent examination on my patient. No changes have occurred unless specified. If the History and Physical was not performed prior to admission, the Hospitalist's service will be consulted for completing the admission physical. Time Spent With Patient Time: Total time managing care of this patient today ____ minutes.
[2024-09-29 07:54] LABS: Alanine Aminotransferase 13 U/L (0-31); Albumin Level 4.0 g/dL (3.5-5.0); Alkaline Phosphatase 68 U/L (39-117); Anion Gap 11 (12-20); Aspartate Amino Transferase 16 U/L (5-31); Blood Urea Nitrogen 17 mg/dL (9-16); Calcium 9.2 mg/dL (8.4-10.2); Carbon Dioxide 23 mmol/L (22-29); Chloride 112 mmol/L (96-108); Cholesterol 127 mg/dL (<200); Creatinine Clr Calc Pharmacy 59.2; Estimated Glomerular Filt Rate > 60; HDL Cholesterol 41 mg/dL (>40); Potassium 4.5 mmol/L (3.3-5.1); Sodium 141 mmol/L (135-145); Total Protein 6.8 g/dL (6.5-8.0); Triglycerides 99 mg/dL (<150)
[2024-09-29 08:13] LABS: Hemoglobin A1C 106.2811 umol/L; Total Hemoglobin (HGBA1C) 3643.3557 umol/L
[2024-09-29 08:57] VITALS: PULSE 84; RESP 16; TEMP 36.8; O2SAT 97
--- NOTE | 2024-09-29 09:55 | PC.NURSE ---
TW made 2 attempts to administer pt's 9am scheduled medication and pt refused despite education.
--- NOTE | 2024-09-29 14:58 | PC.NURSE ---
approached pt two more times with 9am an 12pm scheduled medications and pt continues to refuse despite education
[2024-09-29 20:00] VITALS: BP 136/83; PULSE 121; TEMP 36.7; O2SAT 98
[2024-09-30 07:49] VITALS: BP 139/69; PULSE 107; RESP 16; TEMP 36.6; O2SAT 97
--- NOTE | 2024-09-30 11:07 | P.PNPSI_ITS ---
Subjective Subjective Date of Service: 09/30/24 Reason For Visit: Psychosis Subjective Notes: Conditional Voluntary Interim History: Overall no management issues. Declined meds last PM. Accepted same today. Guarded in room. Minimal engagement with business writer. Remains eager for DC. Medication Compliance: Intermittent Side effects from medications: No Attending Groups: No Review of Systems Acute medical concerns: No Review of Systems Review of Systems unremarkable Mental Status Exam Mental Status Exam Patient Appearance: Disheveled Patient Orientation: Person, Place, Time and Situation Level of Consciousness: Appropriate Patient Behavior: Guarded Mood Description: Suspicious and Withdrawn Affect Description: Suspicious and Withdrawn Patient Cognition Impaired: No Ability to Follow Directions: Fair Speech Pattern: Perseverating Memory Description: Intact Hallucinations: None (denied but does appear internally preoccupied) Delusions: Paranoid Ideation Thought Process: Rumination Thought Content: positive for Perseveration Judgement: Poor Diagnostics Vital Signs (24Hr): Vital Signs - 24 hr 09/29/24 20:00 09/30/24 07:49 Temperature 98.1 F 97.8 F Pulse Rate 121 H 107 H Respiratory Rate 16 Blood Pressure 136/83 139/69 Pulse Oximetry 98 97 Oxygen Delivery Method Room Air Room Air BMI result Body Mass Index 18.2 Labs 09/27/24 05:41 09/29/24 07:23 Labs: Laboratory Results - last 48 hr 09/28/24 09/29/24 14:06 07:23 Sodium 141 Potassium 4.5 D Chloride 112 H Carbon Dioxide 23 Anion Gap 11 L BUN 17 H Creatinine 0.69 Estim Creat Clear Calc 59.2 Estimated GFR > 60 Random Glucose 89 Estimat Average Glucose 91 Hemoglobin A1c % 4.8 Calcium 9.2 Total Bilirubin 0.6 AST 16 ALT 13 Alkaline Phosphatase 68 Total Protein 6.8 Albumin 4.0 Triglycerides 99 Cholesterol 127 LDL Cholesterol, Calc 67 HDL Cholesterol 41 Urine Color Yellow Urine Appearance Clear Urine pH 8.0 Ur Specific [place] 1.010 Urine Protein Negative Urine Glucose (UA) Negative Urine Ketones Negative Urine Blood Negative Urine Nitrite Positive H Ur Leukocyte Esterase Trace H Urine RBC 0-2 Urine WBC 0-5 Ur Squamous Epith Cells 0-2 Urine Bacteria 4+ Hyaline Casts 0-2 Medications Medications Current Medications Acetaminophen (Acetaminophen 325 Mg Tablet) 650 mg PO Q6H PRN PRN Reason: Headache/Pain, Scale 1-10 Al Hydroxide/Mg Hydroxide (Magnesium Hydrox/Alum Hydrox 30 Ml Oral.Susp) 30 ml PO Q6H PRN PRN Reason: Heartburn/Nausea Atorvastatin Calcium (Atorvastatin Calcium 10 Mg Tablet) 10 mg PO BEDTIME [facility] Last Admin: 09/29/24 23:17 Dose: Not Given Benztropine Mesylate (Benztropine Mesylate 0.5 Mg Tablet) 0.5 mg PO BEDTIME [facility] Last Admin: 09/29/24 23:17 Dose: Not Given Brexpiprazole (Brexpiprazole 2 Mg Tablet) 2 mg PO DAILY [facility] Last Admin: 09/30/24 08:28 Dose: 2 mg Carbidopa/Levodopa (Carbidopa/Levodopa 25/100 Tablet) 1 tab PO BID@0900,1200 [facility] Last Admin: 09/30/24 08:28 Dose: 1 tab Hydroxyzine HCl (Hydroxyzine Hcl 25 Mg Tablet) 25 mg PO Q6H PRN PRN Reason: mild anxiety Magnesium Hydroxide (Milk Of Magnesia 30 Ml Oral.Susp) 30 ml PO DAILY PRN PRN Reason: Constipation Melatonin (Melatonin 3 Mg Tablet) 6 mg PO BEDTIME [facility] Last Admin: 09/29/24 23:17 Dose: Not Given Memantine (Memantine Hcl 5 Mg Tablet) 5 mg PO DAILY [facility] Last Admin: 09/30/24 08:28 Dose: 5 mg Metoprolol Tartrate (Metoprolol Tartrate 25 Mg Tablet) 25 mg PO BID [facility]; Protocol Last Admin: 09/30/24 08:28 Dose: 25 mg Mupirocin (Mupirocin 2 % Oint 22 Gm Tube) 1 appl TOPICAL BID [facility]; Protocol Last Admin: 09/30/24 08:27 Dose: Not Given Senna/Docusate Sodium (Sennosides/Docusate Sodium Tablet) 1 tab PO BID PRN PRN Reason: Constipation Trazodone HCl (Trazodone Hcl 100 Mg Tablet) 100 mg PO BEDTIME [facility] Last Admin: 09/29/24 23:18 Dose: Not Given Trazodone HCl (Trazodone Hcl 50 Mg Tablet) 50 mg PO BEDTIME PRN PRN Reason: Insomnia Last Admin: 09/28/24 20:42 Dose: 50 mg Allergies Allergies Allergy/AdvReac Type Severity Reaction Status Date / Time No Known Allergies Allergy Verified 09/27/24 05:26 Assessment & Plan Assessment & Plan (1) Schizoaffective disorder: Qualifiers: Schizoaffective disorder type: unspecified Qualified Code(s): F25.9 - Schizoaffective disorder, unspecified Status: Acute Code(s): F25.9 - Schizoaffective disorder, unspecified Plan Readmission in the context of medication non adherence. Off medications significant delusions, disorganized behavior, noticeable concern from Roommate and visiting nurse services. patient does present as guarded and paranoid. Perseverative on discharge. Reports he will not take medications however will order same so patient has the option should they change of mind. Educated on 3 day notice and Aguilera Warning should they choose to perceive same, otherwise admitted on voluntary status. 09/30: encourage med adherence Reason for continued inpatient stay Substantial Risk for: inability to function Time Spent With Patient Time: Total time managing care of this patient today ____ minutes.
[2024-09-30 20:00] VITALS: BP 117/57; PULSE 53; RESP 18; TEMP 36.7; O2SAT 97
[2024-09-30 21:42] VITALS: BP 115/57; PULSE 53
[2024-10-01 07:53] VITALS: BP 143/63; PULSE 110; RESP 18; TEMP 36.7; O2SAT 97
--- NOTE | 2024-10-01 10:10 | HO.PSYCHPN ---
Subjective Subjective Date of Service: 10/01/24 Reason For Visit: Psychosis Interim History: met with patient; discussed with team; reviewed chart Patient denies AVH. Slow moving with speech latency ; says she is all right. Not really able to explain why she ended up coming to the hospital uti; discussed with hospitalist who will start antibiotic Mental Status Exam Mental Status Exam Narrative: Pt is alert and oriented; behavior is cooperative, calm; slow moving; patient is not in distress; dressed in casual attire, disheveled, uses walker; mood is described as all right and affect anxious to vacant; eye contact appropriate; Speech with latency; slow and soft; psychomotor retardation present; thought process is goal directed; Thought content is vacuous or not disclosed; no paranoid ideations expressed; denies any SI/HI. Denies AVH but does seem internally preoccupied. Patients insight and judgment impaired Diagnostics Vital Signs (24Hr): Vital Signs - 24 hr 09/30/24 20:00 09/30/24 21:42 10/01/24 07:53 Temperature 98.1 F 98.0 F Pulse Rate 53 53 110 H Respiratory Rate 18 18 Blood Pressure 117/57 L 115/57 L 143/63 H Pulse Oximetry 97 97 Oxygen Delivery Method Room Air Room Air BMI result Body Mass Index 18.2 Labs 09/27/24 05:41 09/29/24 07:23 Medications Medications Current Medications Acetaminophen (Acetaminophen 325 Mg Tablet) 650 mg PO Q6H PRN PRN Reason: Headache/Pain, Scale 1-10 Al Hydroxide/Mg Hydroxide (Magnesium Hydrox/Alum Hydrox 30 Ml Oral.Susp) 30 ml PO Q6H PRN PRN Reason: Heartburn/Nausea Atorvastatin Calcium (Atorvastatin Calcium 10 Mg Tablet) 10 mg PO BEDTIME [facility] Last Admin: 09/30/24 21:39 Dose: 10 mg Benztropine Mesylate (Benztropine Mesylate 0.5 Mg Tablet) 0.5 mg PO BEDTIME [facility] Last Admin: 09/30/24 21:39 Dose: 0.5 mg Brexpiprazole (Brexpiprazole 2 Mg Tablet) 2 mg PO DAILY [facility] Last Admin: 10/01/24 08:23 Dose: 2 mg Carbidopa/Levodopa (Carbidopa/Levodopa 25/100 Tablet) 1 tab PO BID@0900,1200 [facility] Last Admin: 07/07/25 08:23 Dose: 1 tab Hydroxyzine HCl (Hydroxyzine Hcl 25 Mg Tablet) 25 mg PO Q6H PRN PRN Reason: mild anxiety Magnesium Hydroxide (Milk Of Magnesia 30 Ml Oral.Susp) 30 ml PO DAILY PRN PRN Reason: Constipation Melatonin (Melatonin 3 Mg Tablet) 6 mg PO BEDTIME [facility] Last Admin: 09/30/24 21:39 Dose: 6 mg Memantine (Memantine Hcl 5 Mg Tablet) 5 mg PO DAILY [facility] Last Admin: 10/01/24 08:22 Dose: 5 mg Metoprolol Tartrate (Metoprolol Tartrate 25 Mg Tablet) 25 mg PO BID [facility]; Protocol Last Admin: 10/01/24 08:23 Dose: 25 mg Mupirocin (Mupirocin 2 % Oint 22 Gm Tube) 1 appl TOPICAL BID [facility]; Protocol Last Admin: 10/01/24 08:24 Dose: Not Given Senna/Docusate Sodium (Sennosides/Docusate Sodium Tablet) 1 tab PO BID PRN PRN Reason: Constipation Trazodone HCl (Trazodone Hcl 100 Mg Tablet) 100 mg PO BEDTIME [facility] Last Admin: 09/30/24 21:39 Dose: 100 mg Trazodone HCl (Trazodone Hcl 50 Mg Tablet) 50 mg PO BEDTIME PRN PRN Reason: Insomnia Last Admin: 09/28/24 20:42 Dose: 50 mg Allergies Allergies Allergy/AdvReac Type Severity Reaction Status Date / Time No Known Allergies Allergy Verified 09/27/24 05:26 Assessment & Plan Assessment & Plan (1) Schizoaffective disorder: Qualifiers: Schizoaffective disorder type: unspecified Qualified Code(s): F25.9 - Schizoaffective disorder, unspecified Status: Acute Code(s): F25.9 - Schizoaffective disorder, unspecified (2) PTSD (post-traumatic stress disorder): Status: Acute Code(s): F43.10 - Post-traumatic stress disorder, unspecified (3) UTI (urinary tract infection): Status: Acute Code(s): N39.0 - Urinary tract infection, site not specified Plan Readmission in the context of medication non adherence. Off medications significant delusions, disorganized behavior, noticeable concern from Roommate and visiting nurse services. patient does present as guarded and paranoid. Perseverative on discharge. Reports he will not take medications however will order same so patient has the option should they change of mind. Educated on 3 day notice and Aguil[place] Warning should they choose to perceive same, otherwise admitted on voluntary status. 09/30: encourage med adherence 10/01 Patient denies AVH. Slow moving with speech latency ; says she is all right. Not really able to explain why she ended up coming to the hospital -uti; discussed with hospitalist who will start antibiotic Plan: Continue home medication regimen restarted this hospitalization Hospitalist PA to start antibiotic for UTI Patient educated on: diagnosis and medication risk/benefits Informed Consent: understands, does not understand and further education needed Reason for continued inpatient stay Substantial Risk for: inability to function and rapid decompensation Time Spent With Patient Time: Total time managing care of this patient today ____ minutes.
[2024-10-01 20:00] VITALS: BP 119/69; PULSE 60; RESP 16; TEMP 36.8; O2SAT 96
[2024-10-01 20:34] VITALS: BP 119/69; PULSE 60
[2024-10-02 08:13] VITALS: BP 157/72; PULSE 47; TEMP 36.8; O2SAT 97
[2024-10-02 08:50] VITALS: BP 157/72; PULSE 72
[2024-10-02 20:00] VITALS: BP 117/68; PULSE 69; TEMP 36.4; O2SAT 97
[2024-10-02 20:57] VITALS: BP 117/68; PULSE 69
--- NOTE | 2024-10-02 21:33 | HO.PSYCHPN ---
Subjective Subjective Date of Service: 10/02/24 Reason For Visit: Psychosis Interim History: met with patient; discussed with team still with speech latency but less today... denies AVH; says i'm alright. She thinks maybe she's getting back to her regular self...Tried to discuss whether she stopped taking medications in the community prior to this admission, but she's not sure. Diagnostics Vital Signs (24Hr): Vital Signs - 24 hr 10/02/24 08:13 10/02/24 08:50 10/02/24 20:00 Temperature 98.2 F 97.6 F Pulse Rate 47 L 72 69 Blood Pressure 157/72 H 157/72 H 117/68 Pulse Oximetry 97 97 Oxygen Delivery Method Room Air Room Air 10/02/24 20:57 Temperature Pulse Rate 69 Blood Pressure 117/68 Pulse Oximetry Oxygen Delivery Method BMI result Body Mass Index 18.2 Labs 09/27/24 05:41 09/29/24 07:23 Medications Medications Current Medications Acetaminophen (Acetaminophen 325 Mg Tablet) 650 mg PO Q6H PRN PRN Reason: Headache/Pain, Scale 1-10 Al Hydroxide/Mg Hydroxide (Magnesium Hydrox/Alum Hydrox 30 Ml Oral.Susp) 30 ml PO Q6H PRN PRN Reason: Heartburn/Nausea Atorvastatin Calcium (Atorvastatin Calcium 10 Mg Tablet) 10 mg PO BEDTIME [facility] Last Admin: 10/02/24 20:46 Dose: 10 mg Benztropine Mesylate (Benztropine Mesylate 0.5 Mg Tablet) 0.5 mg PO BEDTIME [facility] Last Admin: 10/02/24 20:46 Dose: 0.5 mg Brexpiprazole (Brexpiprazole 2 Mg Tablet) 2 mg PO DAILY [facility] Last Admin: 10/02/24 08:09 Dose: 2 mg Carbidopa/Levodopa (Carbidopa/Levodopa 25/100 Tablet) 1 tab PO BID@0900,1200 [facility] Last Admin: 10/02/24 12:18 Dose: 1 tab Hydroxyzine HCl (Hydroxyzine Hcl 25 Mg Tablet) 25 mg PO Q6H PRN PRN Reason: mild anxiety Magnesium Hydroxide (Milk Of Magnesia 30 Ml Oral.Susp) 30 ml PO DAILY PRN PRN Reason: Constipation Melatonin (Melatonin 3 Mg Tablet) 6 mg PO BEDTIME [facility] Last Admin: 10/02/24 20:47 Dose: 6 mg Memantine (Memantine Hcl 5 Mg Tablet) 5 mg PO DAILY [facility] Last Admin: 10/02/24 08:09 Dose: 5 mg Metoprolol Tartrate (Metoprolol Tartrate 25 Mg Tablet) 25 mg PO BID [facility]; Protocol Last Admin: 10/02/24 20:57 Dose: 25 mg Mupirocin (Mupirocin 2 % Oint 22 Gm Tube) 1 appl TOPICAL BID [facility]; Protocol Last Admin: 10/02/24 20:50 Dose: Not Given Nitrofurantoin Macrocrystals (Nitrofurantoin Monohyd/M-Cryst 100 Mg Capsule) 100 mg PO BID [facility] Last Admin: 10/02/24 20:46 Dose: 100 mg Senna/Docusate Sodium (Sennosides/Docusate Sodium Tablet) 1 tab PO BID PRN PRN Reason: Constipation Trazodone HCl (Trazodone Hcl 100 Mg Tablet) 100 mg PO BEDTIME [facility] Last Admin: 10/02/24 20:46 Dose: 100 mg Trazodone HCl (Trazodone Hcl 50 Mg Tablet) 50 mg PO BEDTIME PRN PRN Reason: Insomnia Last Admin: 09/28/24 20:42 Dose: 50 mg Allergies Allergies Allergy/AdvReac Type Severity Reaction Status Date / Time No Known Allergies Allergy Verified 09/27/24 05:26 Assessment & Plan Assessment & Plan (1) Schizoaffective disorder: Qualifiers: Schizoaffective disorder type: unspecified Qualified Code(s): F25.9 - Schizoaffective disorder, unspecified Status: Acute Code(s): F25.9 - Schizoaffective disorder, unspecified (2) PTSD (post-traumatic stress disorder): Status: Acute Code(s): F43.10 - Post-traumatic stress disorder, unspecified (3) UTI (urinary tract infection): Status: Acute Code(s): N39.0 - Urinary tract infection, site not specified Plan Readmission in the context of medication non adherence. Off medications significant delusions, disorganized behavior, noticeable concern from Roommate and visiting nurse services. patient does present as guarded and paranoid. Perseverative on discharge. Reports he will not take medications however will order same so patient has the option should they change of mind. Educated on 3 day notice and Aguilera Warning should they choose to perceive same, otherwise admitted on voluntary status. 09/30: encourage med adherence 10/01 Patient denies AVH. Slow moving with speech latency ; says she is all right. Not really able to explain why she ended up coming to the hospital -uti; discussed with hospitalist who will start antibiotic -considered Ativan for what seems like catatonic symptoms however staff who knows her says she is typically slow; will hold off for now 10/02 still with speech latency but less today... denies AVH; says i'm alright. She thinks maybe she's getting back to her regular self...Tried to discuss whether she stopped taking medications in the community prior to this admission, but she's not sure. -talking a little more freely today; other staff concur, so will hold off w/ ativan trial for now -consider increasing Rexulti though not wanting to worsen Parkinsonism Plan: Continue home medication regimen restarted this hospitalization antibiotic for UTI -gather collateral Patient educated on: diagnosis and medication risk/benefits Reason for continued inpatient stay Substantial Risk for: inability to function, rapid decompensation and med/psych decompensation Time Spent With Patient Time: Total time managing care of this patient today ____ minutes.
[2024-10-03 08:00] VITALS: BP 116/61; PULSE 52; TEMP 36; O2SAT 96
--- NOTE | 2024-10-03 11:35 | HO.PSYCHPN ---
Subjective Subjective Date of Service: 10/03/24 Reason For Visit: Psychosis Interim History: met with patient; discussed with team pt refused all her meds today. Patient with significant and increased speech latency and thought blocking; patient with odd, rocking movements and purposeless movements. On inquiry, regarding med refusal she says she did not take them because um...i don't think it helps... Pattern Weaver attempted numerous times to discuss this with her further, freelance writer education including concern for untreated UTI however patient unable to offer any other explanation other than to say no that she will not take them. Pattern Weaver also discussed taking Ativan which she refused Collateral from patient's daughter and VNA: -Patient stopped taking medications for several weeks prior to this hospitalization and was wandering in the community. Patient herself called the police but then said never mind however the police sent an ambulance for her which resulted in this a mission -Patient has history of trauma; slowed movements and speech at baseline Mental Status Exam Mental Status Exam Narrative: Pt is alert and oriented; behavior is with increased odd, purposeless movements, rocking; not cooperative with treatment remains slept moving; patient is not in distress; dressed in casual attire, disheveled, uses walker; mood is described as all right and affect anxious to vacant; eye contact appropriate; Speech with increased and significant latency; slow and soft; psychomotor retardation and intermittent agitation both present; thought process can be goal directed but is also disorganized unable to answer questions or express self; Thought content is vacuous or not disclosed; no paranoid ideations, SI/HI expressed. Denies AVH but is internally preoccupied. Patients insight and judgment impaired Diagnostics Vital Signs (24Hr): Vital Signs - 24 hr 10/02/24 20:00 10/02/24 20:57 Temperature 97.6 F Pulse Rate 69 69 Blood Pressure 117/68 117/68 Pulse Oximetry 97 Oxygen Delivery Method Room Air BMI result Body Mass Index 18.2 Labs 09/27/24 05:41 09/29/24 07:23 Medications Medications Current Medications Acetaminophen (Acetaminophen 325 Mg Tablet) 650 mg PO Q6H PRN PRN Reason: Headache/Pain, Scale 1-10 Al Hydroxide/Mg Hydroxide (Magnesium Hydrox/Alum Hydrox 30 Ml Oral.Susp) 30 ml PO Q6H PRN PRN Reason: Heartburn/Nausea Atorvastatin Calcium (Atorvastatin Calcium 10 Mg Tablet) 10 mg PO BEDTIME [facility] Last Admin: 10/02/24 20:46 Dose: 10 mg Benztropine Mesylate (Benztropine Mesylate 0.5 Mg Tablet) 0.5 mg PO BEDTIME [facility] Last Admin: 10/02/24 20:46 Dose: 0.5 mg Brexpiprazole (Brexpiprazole 2 Mg Tablet) 2 mg PO DAILY [facility] Last Admin: 10/03/24 10:06 Dose: Not Given Carbidopa/Levodopa (Carbidopa/Levodopa 25/100 Tablet) 1 tab PO BID@0900,1200 [facility] Last Admin: 10/03/24 10:06 Dose: Not Given Hydroxyzine HCl (Hydroxyzine Hcl 25 Mg Tablet) 25 mg PO Q6H PRN PRN Reason: mild anxiety Lorazepam (Lorazepam 0.5 Mg Tablet) 0.5 mg PO TID [facility] Magnesium Hydroxide (Milk Of Magnesia 30 Ml Oral.Susp) 30 ml PO DAILY PRN PRN Reason: Constipation Melatonin (Melatonin 3 Mg Tablet) 6 mg PO BEDTIME [facility] Last Admin: 10/02/24 20:47 Dose: 6 mg Memantine (Memantine Hcl 5 Mg Tablet) 5 mg PO DAILY [facility] Last Admin: 10/03/24 10:06 Dose: Not Given Metoprolol Tartrate (Metoprolol Tartrate 25 Mg Tablet) 25 mg PO BID [facility]; Protocol Last Admin: 10/03/24 10:06 Dose: Not Given Mupirocin (Mupirocin 2 % Oint 22 Gm Tube) 1 appl TOPICAL BID [facility]; Protocol Last Admin: 10/03/24 10:06 Dose: Not Given Nitrofurantoin Macrocrystals (Nitrofurantoin Monohyd/M-Cryst 100 Mg Capsule) 100 mg PO BID [facility] Last Admin: 10/03/24 10:06 Dose: Not Given Senna/Docusate Sodium (Sennosides/Docusate Sodium Tablet) 1 tab PO BID PRN PRN Reason: Constipation Trazodone HCl (Trazodone Hcl 100 Mg Tablet) 100 mg PO BEDTIME [facility] Last Admin: 10/02/24 20:46 Dose: 100 mg Trazodone HCl (Trazodone Hcl 50 Mg Tablet) 50 mg PO BEDTIME PRN PRN Reason: Insomnia Last Admin: 09/28/24 20:42 Dose: 50 mg Allergies Allergies Allergy/AdvReac Type Severity Reaction Status Date / Time No Known Allergies Allergy Verified 09/27/24 05:26 Assessment & Plan Assessment & Plan (1) Schizoaffective disorder: Qualifiers: Schizoaffective disorder type: unspecified Qualified Code(s): F25.9 - Schizoaffective disorder, unspecified Status: Acute Code(s): F25.9 - Schizoaffective disorder, unspecified (2) PTSD (post-traumatic stress disorder): Status: Acute Code(s): F43.10 - Post-traumatic stress disorder, unspecified (3) UTI (urinary tract infection): Status: Acute Code(s): N39.0 - Urinary tract infection, site not specified (4) Catatonia: Status: Acute Code(s): F06.1 - Catatonic disorder due to known physiological condition Plan Readmission in the context of medication non adherence. Off medications significant delusions, disorganized behavior, noticeable concern from Roommate and visiting nurse services. patient does present as guarded and paranoid. Perseverative on discharge. Reports he will not take medications however will order same so patient has the option should they change of mind. Educated on 3 day notice and Aguilera Warning should they choose to perceive same, otherwise admitted on voluntary status. 09/30: encourage med adherence 10/01 Patient denies AVH. Slow moving with speech latency ; says she is all right. Not really able to explain why she ended up coming to the hospital -uti; discussed with hospitalist who will start antibiotic -considered Ativan for what seems like catatonic symptoms however staff who knows her says she is typically slow; will hold off for now 10/02 still with speech latency but less today... denies AVH; says i'm alright. She thinks maybe she's getting back to her regular self...Tried to discuss whether she stopped taking medications in the community prior to this admission, but she's not sure. -talking a little more freely today; other staff concur, so will hold off w/ ativan trial for now -consider increasing Rexulti though not wanting to worsen Parkinsonism (though risk is lower) -OT did [place] and patient improved since previous assessment 10/03 pt refused all her meds today. Patient with significant and increased speech latency and thought blocking; patient with odd, rocking movements and purposeless movements. On inquiry, regarding med refusal she says she did not take them because um...i don't think it helps... Patient continued refused despite freelance writer's numerous attempts to discuss; patient does not appreciate info regarding UTI and risks of not taking antibiotic; -patient does not have capacity Collateral from patient's daughter and VNA: -Patient stopped taking medications for several weeks prior to this hospitalization and was wandering in the community. Patient herself called the police but then said never mind however the police sent an ambulance for her which resulted in this a mission -Patient has history of trauma; slowed movements and speech at baseline Formulation/clinical reasoning: Patient's confusion has worsened; not sure if it is due to psychosis or UTI (or possible burgeoning catatonic symptoms). At this point patient is now refusing medications. Patient has psychotic illness only minimally to moderately treated with Rexulti 2 mg; will consider increasing however patient is developing catatonic-like symptoms and so there is some concern that at the moment, increasing Rexulti could exacerbate catatonia; starting Ativan 1 mg t.i.d.. Patient also has UTI which could certainly be contributing to confusion. Patient has Parkinson's and uses a walker; While Ativan could potentially unbalance patient, currently she has remained steady, able to use her walker effectively and this point potential benefit of Ativan outweighs risk. Once there is a bed, Will move to transfer patient to Geriatric unit where she can be better attended. -patient does not have capacity; if patient has a healthcare proxy freelance writer would invoke healthcare proxy at this time Plan: CV HCP? Starting Ativan 1 mg t.i.d. for catatonic symptoms Started Macrobid 100 mg b.i.d. for UTI Restarted Benztropine 0.5 q.h.s. Restarted Rexulti 2 mg daily restarted followin: Sinemet 25/100 b.i.d. Memantine 5 mg daily Metoprolol 25 mg b.i.d. mupirocin b.i.d. Atorvastatin 10 mg q.h.s. Trazodone 100 mg q.h.s. Patient educated on: diagnosis, medication risk/benefits and medical condition Informed Consent: does not understand Reason for continued inpatient stay Substantial Risk for: inability to function Time Spent With Patient Time: Total time managing care of this patient today ____ minutes.
--- NOTE | 2024-10-03 19:40 | PC.NURSE ---
late entry: pt refused all meds today. aware.
[2024-10-03 19:42] VITALS: BP 151/89; PULSE 96; TEMP 36.7; O2SAT 98
--- NOTE | 2024-10-03 20:24 | PC.NURSE ---
Patient refused medications, stating I don't want 'em. Attempted to persuade patient to accept antibiotic, she again refused. This production underwriter will attempt again.
--- NOTE | 2024-10-03 21:25 | PC.NURSE ---
Patient was again approached with scheduled medications, and again refused all medications.
--- NOTE | 2024-10-04 09:46 | HO.PSYCHPN ---
Subjective Subjective Date of Service: 10/04/24 Reason For Visit: Psychosis Interim History: met with patient; discussed with team pt continues to refuse all medications; in meeting with pt she cannot seem to explain why. Pt continues to have odd movements and remains with significant speech latency and thought blocking and is increasingly tremulous. Mental Status Exam Mental Status Exam Narrative: Pt is alert and oriented; behavior is with increased odd, purposeless movements, rocking; not cooperative with treatment remains slept moving; patient is not in distress; dressed in casual attire, disheveled, uses walker; mood is described as all right and affect anxious to vacant; eye contact appropriate; Speech with increased and significant latency; slow and soft; psychomotor retardation and intermittent agitation both present; thought process can be goal directed but is also disorganized unable to answer questions or express self; Thought content is vacuous or not disclosed; no paranoid ideations, SI/HI expressed. Denies AVH but is internally preoccupied. Patients insight and judgment impaired Diagnostics Vital Signs (24Hr): Vital Signs - 24 hr 10/03/24 19:42 Temperature 98.0 F Pulse Rate 96 Blood Pressure 151/89 H Pulse Oximetry 98 Oxygen Delivery Method Room Air BMI result Body Mass Index 18.2 Labs 09/27/24 05:41 09/29/24 07:23 Medications Medications Current Medications Acetaminophen (Acetaminophen 325 Mg Tablet) 650 mg PO Q6H PRN PRN Reason: Headache/Pain, Scale 1-10 Al Hydroxide/Mg Hydroxide (Magnesium Hydrox/Alum Hydrox 30 Ml Oral.Susp) 30 ml PO Q6H PRN PRN Reason: Heartburn/Nausea Atorvastatin Calcium (Atorvastatin Calcium 10 Mg Tablet) 10 mg PO BEDTIME [facility] Last Admin: 10/03/24 21:28 Dose: Not Given Benztropine Mesylate (Benztropine Mesylate 0.5 Mg Tablet) 0.5 mg PO BEDTIME [facility] Last Admin: 10/03/24 21:28 Dose: Not Given Brexpiprazole (Brexpiprazole 2 Mg Tablet) 2 mg PO DAILY [facility] Last Admin: 10/03/24 10:06 Dose: Not Given Carbidopa/Levodopa (Carbidopa/Levodopa 25/100 Tablet) 1 tab PO BID@0900,1200 [facility] Last Admin: 10/03/24 13:24 Dose: Not Given Hydroxyzine HCl (Hydroxyzine Hcl 25 Mg Tablet) 25 mg PO Q6H PRN PRN Reason: mild anxiety Lorazepam (Lorazepam 1 Mg Tablet) 1 mg PO TID [facility] Last Admin: 10/03/24 21:28 Dose: Not Given Magnesium Hydroxide (Milk Of Magnesia 30 Ml Oral.Susp) 30 ml PO DAILY PRN PRN Reason: Constipation Melatonin (Melatonin 3 Mg Tablet) 6 mg PO BEDTIME [facility] Last Admin: 10/03/24 21:28 Dose: Not Given Memantine (Memantine Hcl 5 Mg Tablet) 5 mg PO DAILY [facility] Last Admin: 10/03/24 10:06 Dose: Not Given Metoprolol Tartrate (Metoprolol Tartrate 25 Mg Tablet) 25 mg PO BID [facility]; Protocol Last Admin: 10/03/24 21:28 Dose: Not Given Mupirocin (Mupirocin 2 % Oint 22 Gm Tube) 1 appl TOPICAL BID [facility]; Protocol Last Admin: 10/03/24 21:29 Dose: Not Given Nitrofurantoin Macrocrystals (Nitrofurantoin Monohyd/M-Cryst 100 Mg Capsule) 100 mg PO BID [facility] Last Admin: 10/03/24 21:29 Dose: Not Given Senna/Docusate Sodium (Sennosides/Docusate Sodium Tablet) 1 tab PO BID PRN PRN Reason: Constipation Trazodone HCl (Trazodone Hcl 100 Mg Tablet) 100 mg PO BEDTIME [facility] Last Admin: 10/03/24 21:29 Dose: Not Given Trazodone HCl (Trazodone Hcl 50 Mg Tablet) 50 mg PO BEDTIME PRN PRN Reason: Insomnia Last Admin: 09/28/24 20:42 Dose: 50 mg Allergies Allergies Allergy/AdvReac Type Severity Reaction Status Date / Time No Known Allergies Allergy Verified 09/27/24 05:26 Assessment & Plan Assessment & Plan (1) Schizoaffective disorder: Qualifiers: Schizoaffective disorder type: unspecified Qualified Code(s): F25.9 - Schizoaffective disorder, unspecified Status: Acute Code(s): F25.9 - Schizoaffective disorder, unspecified (2) PTSD (post-traumatic stress disorder): Status: Acute Code(s): F43.10 - Post-traumatic stress disorder, unspecified (3) UTI (urinary tract infection): Status: Acute Code(s): N39.0 - Urinary tract infection, site not specified (4) Catatonia: Status: Acute Code(s): F06.1 - Catatonic disorder due to known physiological condition Plan Readmission in the context of medication non adherence. Off medications significant delusions, disorganized behavior, noticeable concern from Roommate and visiting nurse services. patient does present as guarded and paranoid. Perseverative on discharge. Reports he will not take medications however will order same so patient has the option should they change of mind. Educated on 3 day notice and Aguil[place] Warning should they choose to perceive same, otherwise admitted on voluntary status. 09/30: encourage med adherence 10/01 Patient denies AVH. Slow moving with speech latency ; says she is all right. Not really able to explain why she ended up coming to the hospital -uti; discussed with hospitalist who will start antibiotic -considered Ativan for what seems like catatonic symptoms however staff who knows her says she is typically slow; will hold off for now 10/02 still with speech latency but less today... denies AVH; says i'm alright. She thinks maybe she's getting back to her regular self...Tried to discuss whether she stopped taking medications in the community prior to this admission, but she's not sure. -talking a little more freely today; other staff concur, so will hold off w/ ativan trial for now -consider increasing Rexulti though not wanting to worsen Parkinsonism (though risk is lower) -OT did [place] and patient improved since previous assessment 10/03 pt refused all her meds today. Patient with significant and increased speech latency and thought blocking; patient with odd, rocking movements and purposeless movements. On inquiry, regarding med refusal she says she did not take them because um...i don't think it helps... Patient continued refused despite policy writer sales's numerous attempts to discuss; patient does not appreciate info regarding UTI and risks of not taking antibiotic; -patient does not have capacity Collateral from patient's daughter and VNA: -Patient stopped taking medications for several weeks prior to this hospitalization and was wandering in the community. Patient herself called the police but then said never mind however the police sent an ambulance for her which resulted in this a mission -Patient has history of trauma; slowed movements and speech at baseline 10/04 pt continues to refuse all medications; in meeting with pt she cannot seem to explain why. Pt continues to have odd movements and remains with significant speech latency and thought blocking and is increasingly tremulous. -pt is disorganized in speech and behavior and with odd movements in addition to Parkinsons; team agrees that she will do much better on the Geriatric unit whose milue is much less kinetic. Formulation/clinical reasoning: Patient's confusion has worsened; not sure if it is due to psychosis or UTI (or possible burgeoning catatonic symptoms). At this point patient is now refusing medications. Patient has psychotic illness only minimally to moderately treated with Rexulti 2 mg; will consider increasing however patient is developing catatonic-like symptoms and so there is some concern that at the moment, increasing Rexulti could exacerbate catatonia; starting Ativan 1 mg t.i.d.. Patient also has UTI which could certainly be contributing to confusion. Patient has Parkinson's and uses a walker; While Ativan could potentially unbalance patient, currently she has remained steady, able to use her walker effectively and this point potential benefit of Ativan outweighs risk. Will move to transfer patient to Geriatric unit where she can be better attended. -patient does not have capacity; if patient has a healthcare proxy policy writer sales would invoke healthcare proxy at this time Plan: CV HCP? Starting Ativan 1 mg t.i.d. for catatonic symptoms Started Macrobid 100 mg b.i.d. for UTI Restarted Benztropine 0.5 q.h.s. Restarted Rexulti 2 mg daily restarted followin: Sinemet 25/100 b.i.d. Memantine 5 mg daily Metoprolol 25 mg b.i.d. mupirocin b.i.d. Atorvastatin 10 mg q.h.s. Trazodone 100 mg q.h.s. Patient educated on: diagnosis and medication risk/benefits Informed Consent: does not understand Reason for continued inpatient stay Substantial Risk for: inability to function Time Spent With Patient Time: Total time managing care of this patient today ____ minutes.
--- NOTE | 2024-10-04 15:20 | PC.NURSE ---
Patient arrived from at 3PM accompanied by Laney ROQUE. Alert, oriented to self, place, day of the week, month and the year. VS as follow; T 98.0, P 87, BP 135/77, O2sat 96% on RA. Patient denies pain. Offered snack and fluids. Oriented to the unit. Will continue to monitor.
[2024-10-04 19:56] VITALS: BP 121/85; PULSE 86; TEMP 2.7; TEMP 36.9; O2SAT 98
[2024-10-04 20:27] VITALS: BP 121/85; PULSE 86
[2024-10-05 08:22] VITALS: BP 114/55; PULSE 69; RESP 16; TEMP 36.7; O2SAT 98
--- NOTE | 2024-10-05 10:43 | P.CONHOSP_ITS ---
History of Present Illness Data of Consult Service Date: 10/05/24 Primary Care Provider: Unknown Physician HPI Reason for consult: Medical management 68-year-old female with a past medical history of schizophrenia, hypertension/hyperlipidemia, UTI, PTSD and anxiety, who has been in the ED 4 times recently for minor complaints. She has called EMS to transport her. She has not been taking her medications which led up to this hospitalization. She is admitted to [facility] for further care and treatment. On exam she denies any shortness of breath, dizziness, lightheadedness or any other concerning symptoms. She continues on antibiotic therapy for UTI. She denies any dysuria. Review of Systems 2 Review of Systems: Denies any shortness of breath, chest pain, dizziness, lightheadedness, abdominal pain or discomfort, nausea vomiting or diarrhea PMFSH Medical History Porcelain gallbladder Schizoaffective disorder Anxiety HLD (hyperlipidemia) HTN (hypertension) Schizophrenia Social History Household Members: Friend(s) Household Members Other:: Roommate Housing: Apartment Do you presently have visiting nurse or other home services: Yes ([facility] [phone]) Alcohol intake: former Comment: 5-min checks Patient Tobacco Use Status: Former Tobacco user Smoked in Last 30 Days: No e-Cigarette/Vaping Use: Never Used Currently Displaying Signs/Symptoms of Drug Intoxication Withdrawal: No Advance Directives: No Advance Directives Information Provided: Yes Do you have thoughts of harming others: None Do you have a plan to hurt others: No Plan Recently lost weight without trying: Yes Nutrition Risks: Poor intake 0-25% >4 days Patient : No : No Poor oral hygiene: No service: No Current 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 status: 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 Sexual orientation: Straight/Heterosexual Meds Allergies Allergy/AdvReac Type Severity Reaction Status Date / Time No Known Allergies Allergy Verified 09/27/24 05:26 Active Medications: Current Medications Acetaminophen (Acetaminophen 325 Mg Tablet) 650 mg PO Q6H PRN PRN Reason: Headache/Pain, Scale 1-10 Al Hydroxide/Mg Hydroxide (Magnesium Hydrox/Alum Hydrox 30 Ml Oral.Susp) 30 ml PO Q6H PRN PRN Reason: Heartburn/Nausea Atorvastatin Calcium (Atorvastatin Calcium 10 Mg Tablet) 10 mg PO BEDTIME [facility] Last Admin: 10/04/24 20:27 Dose: 10 mg Benztropine Mesylate (Benztropine Mesylate 0.5 Mg Tablet) 0.5 mg PO BEDTIME [facility] Last Admin: 10/04/24 20:27 Dose: 0.5 mg Brexpiprazole (Brexpiprazole 2 Mg Tablet) 2 mg PO DAILY [facility] Last Admin: 10/05/24 09:09 Dose: 2 mg Carbidopa/Levodopa (Carbidopa/Levodopa 25/100 Tablet) 1 tab PO BID@0900,1200 [facility] Last Admin: 10/05/24 09:09 Dose: 1 tab Hydroxyzine HCl (Hydroxyzine Hcl 25 Mg Tablet) 25 mg PO Q6H PRN PRN Reason: mild anxiety Lorazepam (Lorazepam 1 Mg Tablet) 1 mg PO TID [facility] Last Admin: 10/05/24 09:08 Dose: 1 mg Magnesium Hydroxide (Milk Of Magnesia 30 Ml Oral.Susp) 30 ml PO DAILY PRN PRN Reason: Constipation Melatonin (Melatonin 3 Mg Tablet) 6 mg PO BEDTIME [facility] Last Admin: 10/04/24 20:28 Dose: 6 mg Memantine (Memantine Hcl 5 Mg Tablet) 5 mg PO DAILY [facility] Last Admin: 10/05/24 09:08 Dose: 5 mg Metoprolol Tartrate (Metoprolol Tartrate 25 Mg Tablet) 25 mg PO BID [facility]; Protocol Last Admin: 10/05/24 09:09 Dose: 25 mg Mupirocin (Mupirocin 2 % Oint 22 Gm Tube) 1 appl TOPICAL BID [facility]; Protocol Last Admin: 10/05/24 09:11 Dose: 1 appl Nitrofurantoin Macrocrystals (Nitrofurantoin Monohyd/M-Cryst 100 Mg Capsule) 100 mg PO BID [facility] Last Admin: 10/05/24 09:08 Dose: 100 mg Senna/Docusate Sodium (Sennosides/Docusate Sodium Tablet) 1 tab PO BID PRN PRN Reason: Constipation Trazodone HCl (Trazodone Hcl 100 Mg Tablet) 100 mg PO BEDTIME [facility] Last Admin: 10/04/24 20:27 Dose: 100 mg Trazodone HCl (Trazodone Hcl 50 Mg Tablet) 50 mg PO BEDTIME PRN PRN Reason: Insomnia Last Admin: 09/28/24 20:42 Dose: 50 mg Home Medications ?Medication ?Instructions ?Recorded ?Confirmed ?Last Taken ?Type carbidopa 25 mg-levodopa 100 mg 1 tab PO BID@0900,1200 09/27/24 09/27/24 Unknown History tablet Physical Exam 2 Vital Signs and Narrative: Vital Signs: Last Vital Signs Temp 98.1 F 10/05/24 08:22 Pulse 69 10/05/24 08:22 Resp 16 10/05/24 08:22 BP 114/55 L 10/05/24 08:22 Pulse Ox 98 10/05/24 08:22 O2 Del Method Room Air 10/05/24 08:22 BMI result Body Mass Index 18.2 CONST: Alert and oriented, in NAD. Frail HEENT: Normocephalic, atraumatic, MMM, Eyes clear, Neck supple RESP: Lungs clear, RRR even and regular HEART:,RRR, S1, S2. No edema GI:Abdomen Soft NT, ND. + BS times four :Deferred SKIN: Warm dry and intact, no visible lesions or rashes NEURO:CN II-XII Intact bilaterally, Sensation intact. Speech clear PSYCH: Normal affect Results Labs 09/27/24 05:41 09/29/24 07:23 Assessment and Plan (1) UTI (urinary tract infection): Status: Acute Plan Schizoaffective disorder/Catatonia/Anxiety Treatment per psychiatric team Hypertension/hyperlipidemia Continue metoprolol and atorvastatin as ordered Blood pressure stable UTI Complete course of Macrobid Thank you for allowing me to participate in the care of this patient. We will continue to follow up as needed. Please reconsult of any acute concerns or issues arise
[2024-10-05 14:01] LABS: Alanine Aminotransferase < 6 U/L (0-31); Albumin Level 3.6 g/dL (3.5-5.0); Alkaline Phosphatase 57 U/L (39-117); Anion Gap 12 (12-20); Aspartate Amino Transferase 37 U/L (5-31); Blood Urea Nitrogen 29 mg/dL (9-16); Calcium 8.8 mg/dL (8.4-10.2); Carbon Dioxide 25 mmol/L (22-29); Chloride 108 mmol/L (96-108); Creatinine Clr Calc Pharmacy 49.2; Estimated Glomerular Filt Rate > 60; Potassium 4.2 mmol/L (3.3-5.1); Sodium 141 mmol/L (135-145); Total Protein 5.9 g/dL (6.5-8.0)
--- NOTE | 2024-10-05 17:21 | HO.PSYCHPN ---
Subjective Subjective Date of Service: 10/05/24 Reason For Visit: Psychosis Subjective Notes: Conditional Voluntary Interim History: Pt with some difficulty enunciating, somewhat difficult to follow. She asks about UTI and whether she is still taking antibiotic. Pt informed that she is still on antibiotic. She reports she had stopped it, which she had declined taking medications but today she has taken them all. She denies SI/HI. She denies hearing voices but she is not always forthcoming. She has been mostly in her room. She later reported to that her urine was brown. will check renal function. She denied to this assembly instructions writer any burning sensation or painful urination. Review of Systems Review of Systems Denies any shortness of breath, chest pain, dizziness, lightheadedness, abdominal pain or discomfort, nausea vomiting or diarrhea Mental Status Exam Mental Status Exam Narrative: Appearance: wearing hospital gown, poor hygiene, in NAD behavior: cooperative Psychomotor: no overt retardation nor agitation Speech: difficult to understand, mumbling and with some difficulty enanciating words, spontaneous TP: focused on UTI TC: worried about UTI Mood: ok Affect: constricted Si: denies HI: denies VH/AH: may be internally preoccupied despite her denial Delusions: no overt delusional content but worried about uti Insight/judgment: very poor x 2 Memory/cog: alert, oriented to hospital, not situation. Diagnostics Vital Signs (24Hr): Vital Signs - 24 hr 10/04/24 19:56 10/04/24 20:27 10/05/24 08:22 Temperature 36.9 F L 98.1 F Pulse Rate 86 86 69 Respiratory Rate 16 Blood Pressure 121/85 121/85 114/55 L Pulse Oximetry 98 98 Oxygen Delivery Method Room Air Room Air BMI result Body Mass Index 18.2 Labs 09/27/24 05:41 10/05/24 13:37 Labs: Laboratory Results - last 48 hr 10/05/24 13:37 Sodium 141 Potassium 4.2 Chloride 108 Carbon Dioxide 25 Anion Gap 12 BUN 29 H Creatinine 0.83 Estim Creat Clear Calc 49.2 Estimated GFR > 60 Random Glucose 77 Calcium 8.8 Total Bilirubin 0.5 AST 37 H ALT < 6 Alkaline Phosphatase 57 Total Protein 5.9 L Albumin 3.6 Medications Medications Current Medications Acetaminophen (Acetaminophen 325 Mg Tablet) 650 mg PO Q6H PRN PRN Reason: Headache/Pain, Scale 1-10 Al Hydroxide/Mg Hydroxide (Magnesium Hydrox/Alum Hydrox 30 Ml Oral.Susp) 30 ml PO Q6H PRN PRN Reason: Heartburn/Nausea Atorvastatin Calcium (Atorvastatin Calcium 10 Mg Tablet) 10 mg PO BEDTIME REPLACED BY [facility] Last Admin: 10/04/24 20:27 Dose: 10 mg Benztropine Mesylate (Benztropine Mesylate 0.5 Mg Tablet) 0.5 mg PO BEDTIME REPLACED BY [facility] Last Admin: 10/04/24 20:27 Dose: 0.5 mg Brexpiprazole (Brexpiprazole 2 Mg Tablet) 2 mg PO DAILY REPLACED BY [facility] Last Admin: 10/05/24 09:09 Dose: 2 mg Carbidopa/Levodopa (Carbidopa/Levodopa 25/100 Tablet) 1 tab PO BID@0900,1200 REPLACED BY [facility] Last Admin: 10/05/24 12:04 Dose: 1 tab Hydroxyzine HCl (Hydroxyzine Hcl 25 Mg Tablet) 25 mg PO Q6H PRN PRN Reason: mild anxiety Lorazepam (Lorazepam 1 Mg Tablet) 1 mg PO TID REPLACED BY [facility] Last Admin: 10/05/24 14:45 Dose: 1 mg Magnesium Hydroxide (Milk Of Magnesia 30 Ml Oral.Susp) 30 ml PO DAILY PRN PRN Reason: Constipation Melatonin (Melatonin 3 Mg Tablet) 6 mg PO BEDTIME REPLACED BY [facility] Last Admin: 10/04/24 20:28 Dose: 6 mg Memantine (Memantine Hcl 5 Mg Tablet) 5 mg PO DAILY REPLACED BY [facility] Last Admin: 10/05/24 09:08 Dose: 5 mg Metoprolol Tartrate (Metoprolol Tartrate 25 Mg Tablet) 25 mg PO BID REPLACED BY [facility]; Protocol Last Admin: 10/05/24 09:09 Dose: 25 mg Mupirocin (Mupirocin 2 % Oint 22 Gm Tube) 1 appl TOPICAL BID REPLACED BY [facility]; Protocol Last Admin: 10/05/24 09:11 Dose: 1 appl Nitrofurantoin Macrocrystals (Nitrofurantoin Monohyd/M-Cryst 100 Mg Capsule) 100 mg PO BID REPLACED BY [facility] Last Admin: 10/05/24 09:08 Dose: 100 mg Senna/Docusate Sodium (Sennosides/Docusate Sodium Tablet) 1 tab PO BID PRN PRN Reason: Constipation Trazodone HCl (Trazodone Hcl 100 Mg Tablet) 100 mg PO BEDTIME REPLACED BY [facility] Last Admin: 10/04/24 20:27 Dose: 100 mg Trazodone HCl (Trazodone Hcl 50 Mg Tablet) 50 mg PO BEDTIME PRN PRN Reason: Insomnia Last Admin: 09/28/24 20:42 Dose: 50 mg Allergies Allergies Allergy/AdvReac Type Severity Reaction Status Date / Time No Known Allergies Allergy Verified 09/27/24 05:26 Assessment & Plan Assessment & Plan (1) Schizophrenia: Status: Acute Code(s): F20.9 - Schizophrenia, unspecified (2) UTI (urinary tract infection): Status: Acute Code(s): N39.0 - Urinary tract infection, site not specified (3) Schizoaffective disorder: Qualifiers: Schizoaffective disorder type: unspecified Qualified Code(s): F25.9 - Schizoaffective disorder, unspecified Status: Acute Code(s): F25.9 - Schizoaffective disorder, unspecified (4) PTSD (post-traumatic stress disorder): Status: Acute Code(s): F43.10 - Post-traumatic stress disorder, unspecified (5) Catatonia: Status: Acute Code(s): F06.1 - Catatonic disorder due to known physiological condition Plan Readmission in the context of medication non adherence. Off medications significant delusions, disorganized behavior, noticeable concern from Roommate and visiting nurse services. patient does present as guarded and paranoid. Perseverative on discharge. Reports he will not take medications however will order same so patient has the option should they change of mind. Educated on 3 day notice and [place] Warning should they choose to perceive same, otherwise admitted on voluntary status. 09/30: encourage med adherence 10/01 Patient denies AVH. Slow moving with speech latency ; says she is all right. Not really able to explain why she ended up coming to the hospital -uti; discussed with hospitalist who will start antibiotic -considered Ativan for what seems like catatonic symptoms however staff who knows her says she is typically slow; will hold off for now 10/02 still with speech latency but less today... denies AVH; says i'm alright. She thinks maybe she's getting back to her regular self...Tried to discuss whether she stopped taking medications in the community prior to this admission, but she's not sure. -talking a little more freely today; other staff concur, so will hold off w/ ativan trial for now -consider increasing Rexulti though not wanting to worsen Parkinsonism (though risk is lower) -OT did [place] and patient improved since previous assessment 10/03 pt refused all her meds today. Patient with significant and increased speech latency and thought blocking; patient with odd, rocking movements and purposeless movements. On inquiry, regarding med refusal she says she did not take them because um...i don't think it helps... Patient continued refused despite assembly instructions writer's numerous attempts to discuss; patient does not appreciate info regarding UTI and risks of not taking antibiotic; -patient does not have capacity Collateral from patient's daughter and VNA: -Patient stopped taking medications for several weeks prior to this hospitalization and was wandering in the community. Patient herself called the police but then said never mind however the police sent an ambulance for her which resulted in this a mission -Patient has history of trauma; slowed movements and speech at baseline 10/04 pt continues to refuse all medications; in meeting with pt she cannot seem to explain why. Pt continues to have odd movements and remains with significant speech latency and thought blocking and is increasingly tremulous. -pt is disorganized in speech and behavior and with odd movements in addition to Parkinsons; team agrees that she will do much better on the Geriatric unit whose milue is much less kinetic. 10/05 pt concern about UTI, did take medications today. order CMP as pt reported brown urine. BUN increased 29, with slight increase in Cr 0.83 (from 0.69). renal function stable, may be somewhat dehydrated. continue current tx. Formulation/clinical reasoning: Patient's confusion has worsened; not sure if it is due to psychosis or UTI (or possible burgeoning catatonic symptoms). At this point patient is now refusing medications. Patient has psychotic illness only minimally to moderately treated with Rexulti 2 mg; will consider increasing however patient is developing catatonic-like symptoms and so there is some concern that at the moment, increasing Rexulti could exacerbate catatonia; starting Ativan 1 mg t.i.d.. Patient also has UTI which could certainly be contributing to confusion. Patient has Parkinson's and uses a walker; While Ativan could potentially unbalance patient, currently she has remained steady, able to use her walker effectively and this point potential benefit of Ativan outweighs risk. Will move to transfer patient to Geriatric unit where she can be better attended. -patient does not have capacity; if patient has a healthcare proxy assembly instructions writer would invoke healthcare proxy at this time Plan: CV HCP? Starting Ativan 1 mg t.i.d. for catatonic symptoms Started Macrobid 100 mg b.i.d. for UTI Restarted Benztropine 0.5 q.h.s. Restarted Rexulti 2 mg daily restarted followin: Sinemet 25/100 b.i.d. Memantine 5 mg daily Metoprolol 25 mg b.i.d. mupirocin b.i.d. Atorvastatin 10 mg q.h.s. Trazodone 100 mg q.h.s. Patient educated on: diagnosis and medication risk/benefits Informed Consent: does not understand Reason for continued inpatient stay Substantial Risk for: inability to function Time Spent With Patient Time: Total time managing care of this patient today ____ minutes.
[2024-10-05 21:43] VITALS: BP 101/53; PULSE 69; RESP 17; TEMP 36.6; O2SAT 96
[2024-10-05 21:45] VITALS: BP 101/53; PULSE 69
[2024-10-06 08:00] VITALS: BP 113/55; PULSE 60; RESP 16; TEMP 36.4; O2SAT 98
[2024-10-06 08:17] VITALS: BP 113/55; PULSE 60
--- NOTE | 2024-10-06 15:39 | P.PNPSI_ITS ---
Subjective Subjective Date of Service: 10/06/24 Reason For Visit: Psychosis Interim History: Met with patient; discussed with team Patient doing much better on the geriatric unit, taking her medications, eating. Patient asked about her UTI and said that some of her urine was brown in the morning but then it had become clear. Asked tag writer about antibiotic and accepted answer for continued treatment. No expressions of paranoid ideations Mental Status Exam Mental Status Exam Narrative: Appearance: wearing hospital gown, poor hygiene, in NAD behavior: cooperative Psychomotor: no overt retardation nor agitation Speech: Spontaneous, improved and more clearly enunciating words TP: Goal oriented TC: worried about UTI Mood: ok Affect: constricted Si: denies HI: denies VH/AH: may be internally preoccupied despite her denial Delusions: no overt delusional content but worried about uti Insight/judgment: very poor x 2 Memory/cog: alert, oriented to hospital, not situation. Diagnostics Vital Signs (24Hr): Vital Signs - 24 hr 10/05/24 21:43 10/05/24 21:45 10/06/24 08:00 Temperature 97.9 F 97.5 F Pulse Rate 69 69 60 Respiratory Rate 17 16 Blood Pressure 101/53 L 101/53 L 113/55 L Pulse Oximetry 96 98 Oxygen Delivery Method Room Air Room Air 10/06/24 08:17 Temperature Pulse Rate 60 Respiratory Rate Blood Pressure 113/55 L Pulse Oximetry Oxygen Delivery Method BMI result Body Mass Index 18.2 Labs 09/27/24 05:41 10/05/24 13:37 Labs: Laboratory Results - last 48 hr 10/05/24 13:37 Sodium 141 Potassium 4.2 Chloride 108 Carbon Dioxide 25 Anion Gap 12 BUN 29 H Creatinine 0.83 Estim Creat Clear Calc 49.2 Estimated GFR > 60 Random Glucose 77 Calcium 8.8 Total Bilirubin 0.5 AST 37 H ALT < 6 Alkaline Phosphatase 57 Total Protein 5.9 L Albumin 3.6 Medications Medications Current Medications Acetaminophen (Acetaminophen 325 Mg Tablet) 650 mg PO Q6H PRN PRN Reason: Headache/Pain, Scale 1-10 Al Hydroxide/Mg Hydroxide (Magnesium Hydrox/Alum Hydrox 30 Ml Oral.Susp) 30 ml PO Q6H PRN PRN Reason: Heartburn/Nausea Atorvastatin Calcium (Atorvastatin Calcium 10 Mg Tablet) 10 mg PO BEDTIME [facility] Last Admin: 10/05/24 21:45 Dose: 10 mg Benztropine Mesylate (Benztropine Mesylate 0.5 Mg Tablet) 0.5 mg PO BEDTIME [facility] Last Admin: 10/05/24 21:44 Dose: 0.5 mg Brexpiprazole (Brexpiprazole 2 Mg Tablet) 2 mg PO DAILY [facility] Last Admin: 10/06/24 08:18 Dose: 2 mg Carbidopa/Levodopa (Carbidopa/Levodopa 25/100 Tablet) 1 tab PO BID@0900,1200 [facility] Last Admin: 10/06/24 12:09 Dose: 1 tab Hydroxyzine HCl (Hydroxyzine Hcl 25 Mg Tablet) 25 mg PO Q6H PRN PRN Reason: mild anxiety Lorazepam (Lorazepam 1 Mg Tablet) 1 mg PO TID [facility] Last Admin: 10/06/24 14:45 Dose: 1 mg Magnesium Hydroxide (Milk Of Magnesia 30 Ml Oral.Susp) 30 ml PO DAILY PRN PRN Reason: Constipation Melatonin (Melatonin 3 Mg Tablet) 6 mg PO BEDTIME [facility] Last Admin: 10/05/24 21:44 Dose: 6 mg Memantine (Memantine Hcl 5 Mg Tablet) 5 mg PO DAILY [facility] Last Admin: 10/06/24 08:17 Dose: 5 mg Metoprolol Tartrate (Metoprolol Tartrate 25 Mg Tablet) 25 mg PO BID [facility]; Protocol Last Admin: 10/06/24 08:17 Dose: 25 mg Mupirocin (Mupirocin 2 % Oint 22 Gm Tube) 1 appl TOPICAL BID [facility]; Protocol Last Admin: 10/06/24 08:18 Dose: 1 appl Nitrofurantoin Macrocrystals (Nitrofurantoin Monohyd/M-Cryst 100 Mg Capsule) 100 mg PO BID [facility] Last Admin: 10/06/24 08:17 Dose: 100 mg Senna/Docusate Sodium (Sennosides/Docusate Sodium Tablet) 1 tab PO BID PRN PRN Reason: Constipation Trazodone HCl (Trazodone Hcl 100 Mg Tablet) 100 mg PO BEDTIME [facility] Last Admin: 10/05/24 21:44 Dose: 100 mg Trazodone HCl (Trazodone Hcl 50 Mg Tablet) 50 mg PO BEDTIME PRN PRN Reason: Insomnia Last Admin: 09/28/24 20:42 Dose: 50 mg Allergies Allergies Allergy/AdvReac Type Severity Reaction Status Date / Time No Known Allergies Allergy Verified 09/27/24 05:26 Assessment & Plan Assessment & Plan (1) Schizophrenia: Status: Acute Code(s): F20.9 - Schizophrenia, unspecified (2) UTI (urinary tract infection): Status: Acute Code(s): N39.0 - Urinary tract infection, site not specified (3) Schizoaffective disorder: Qualifiers: Schizoaffective disorder type: unspecified Qualified Code(s): F25.9 - Schizoaffective disorder, unspecified Status: Acute Code(s): F25.9 - Schizoaffective disorder, unspecified (4) PTSD (post-traumatic stress disorder): Status: Acute Code(s): F43.10 - Post-traumatic stress disorder, unspecified (5) Catatonia: Status: Acute Code(s): F06.1 - Catatonic disorder due to known physiological condition Plan Readmission in the context of medication non adherence. Off medications significant delusions, disorganized behavior, noticeable concern from Roommate and visiting nurse services. patient does present as guarded and paranoid. Perseverative on discharge. Reports he will not take medications however will order same so patient has the option should they change of mind. Educated on 3 day notice and [place] Warning should they choose to perceive same, otherwise admitted on voluntary status. 09/30: encourage med adherence 10/01 Patient denies AVH. Slow moving with speech latency ; says she is all right. Not really able to explain why she ended up coming to the hospital -uti; discussed with hospitalist who will start antibiotic -considered Ativan for what seems like catatonic symptoms however staff who knows her says she is typically slow; will hold off for now 10/02 still with speech latency but less today... denies AVH; says i'm alright. She thinks maybe she's getting back to her regular self...Tried to discuss whether she stopped taking medications in the community prior to this admission, but she's not sure. -talking a little more freely today; other staff concur, so will hold off w/ ativan trial for now -consider increasing Rexulti though not wanting to worsen Parkinsonism (though risk is lower) -OT did [place] and patient improved since previous assessment 10/03 pt refused all her meds today. Patient with significant and increased speech latency and thought blocking; patient with odd, rocking movements and purposeless movements. On inquiry, regarding med refusal she says she did not take them because um...i don't think it helps... Patient continued refused despite tag writer's numerous attempts to discuss; patient does not appreciate info regarding UTI and risks of not taking antibiotic; -patient does not have capacity Collateral from patient's daughter and VNA: -Patient stopped taking medications for several weeks prior to this hospitalization and was wandering in the community. Patient herself called the police but then said never mind however the police sent an ambulance for her which resulted in this a mission -Patient has history of trauma; slowed movements and speech at baseline 10/04 pt continues to refuse all medications; in meeting with pt she cannot seem to explain why. Pt continues to have odd movements and remains with significant speech latency and thought blocking and is increasingly tremulous. -pt is disorganized in speech and behavior and with odd movements in addition to Parkinsons; team agrees that she will do much better on the Geriatric unit whose milue is much less kinetic. 10/05 pt concern about UTI, did take medications today. order CMP as pt reported brown urine. BUN increased 29, with slight increase in Cr 0.83 (from 0.69). renal function stable, may be somewhat dehydrated. continue current tx. Formulation/clinical reasoning: Patient's confusion has worsened; not sure if it is due to psychosis or UTI (or possible burgeoning catatonic symptoms). At this point patient is now refusing medications. Patient has psychotic illness only minimally to moderately treated with Rexulti 2 mg; will consider increasing however patient is developing catatonic-like symptoms and so there is some concern that at the moment, increasing Rexulti could exacerbate catatonia; starting Ativan 1 mg t.i.d.. Patient also has UTI which could certainly be contributing to confusion. Patient has Parkinson's and uses a walker; While Ativan could potentially unbalance patient, currently she has remained steady, able to use her walker effectively and this point potential benefit of Ativan outweighs risk. Will move to transfer patient to Geriatric unit where she can be better attended. -patient does not have capacity; if patient has a healthcare proxy tag writer would invoke healthcare proxy at this time 10/06 Patient doing much better on the geriatric unit, taking her medications, eating. Patient asked about her UTI and said that some of her urine was brown in the morning but then it had become clear. Asked tag writer about antibiotic and accepted answer for continued treatment. No expressions of paranoid ideations -continue current medication regimen including Ativan as patient has improved -will review antibiotic Plan: CV HCP? Starting Ativan 1 mg t.i.d. for catatonic symptoms Started Macrobid 100 mg b.i.d. for UTI Restarted Benztropine 0.5 q.h.s. Restarted Rexulti 2 mg daily restarted followin: Sinemet 25/100 b.i.d. Memantine 5 mg daily Metoprolol 25 mg b.i.d. mupirocin b.i.d. Atorvastatin 10 mg q.h.s. Trazodone 100 mg q.h.s. Patient educated on: diagnosis and medical condition Informed Consent: understands, does not understand and further education needed Reason for continued inpatient stay Substantial Risk for: rapid decompensation Time Spent With Patient Time: Total time managing care of this patient today ____ minutes.
[2024-10-06 19:29] VITALS: BP 114/56; PULSE 62; RESP 16; TEMP 36.9; O2SAT 95
[2024-10-06 20:03] VITALS: BP 114/56; PULSE 62
[2024-10-07 08:00] VITALS: BP 124/66; PULSE 68; RESP 16; TEMP 36.8; O2SAT 98
[2024-10-07 08:11] VITALS: BP 124/66; PULSE 68
--- NOTE | 2024-10-07 19:57 | HO.PSYCHPN ---
Subjective Subjective Date of Service: 10/07/24 Reason For Visit: Psychosis Interim History: Met with patient; discussed with team Continues to be improved, speaking spontaneously; ask the ended about UTI says that her urine is clear and wanted to understand about antibiotic which sports book writer explained. Mental Status Exam Mental Status Exam Narrative: Appearance: wearing hospital gown, poor hygiene, in NAD behavior: cooperative Psychomotor: no overt retardation nor agitation Speech: Spontaneous, improved and more clearly enunciating words TP: Goal oriented TC: worried about UTI Mood: ok Affect: constricted Si: denies HI: denies VH/AH: may be internally preoccupied despite her denial Delusions: no overt delusional content but worried about uti Insight/judgment: very poor x 2 Memory/cog: alert, oriented to hospital, not situation. Diagnostics Vital Signs (24Hr): Vital Signs - 24 hr 10/06/24 20:03 10/07/24 08:00 10/07/24 08:11 Temperature 98.2 F Pulse Rate 62 68 68 Respiratory Rate 16 Blood Pressure 114/56 L 124/66 124/66 Pulse Oximetry 98 Oxygen Delivery Method Room Air BMI result Body Mass Index 18.2 Labs 09/27/24 05:41 10/05/24 13:37 Medications Medications Current Medications Acetaminophen (Acetaminophen 325 Mg Tablet) 650 mg PO Q6H PRN PRN Reason: Headache/Pain, Scale 1-10 Al Hydroxide/Mg Hydroxide (Magnesium Hydrox/Alum Hydrox 30 Ml Oral.Susp) 30 ml PO Q6H PRN PRN Reason: Heartburn/Nausea Atorvastatin Calcium (Atorvastatin Calcium 10 Mg Tablet) 10 mg PO BEDTIME [facility] Last Admin: 10/06/24 20:04 Dose: 10 mg Benztropine Mesylate (Benztropine Mesylate 0.5 Mg Tablet) 0.5 mg PO BEDTIME [facility] Last Admin: 10/06/24 20:04 Dose: 0.5 mg Brexpiprazole (Brexpiprazole 2 Mg Tablet) 2 mg PO DAILY [facility] Last Admin: 10/07/24 08:12 Dose: 2 mg Carbidopa/Levodopa (Carbidopa/Levodopa 25/100 Tablet) 1 tab PO BID@0900,1200 [facility] Last Admin: 10/07/24 12:33 Dose: 1 tab Hydroxyzine HCl (Hydroxyzine Hcl 25 Mg Tablet) 25 mg PO Q6H PRN PRN Reason: mild anxiety Lorazepam (Lorazepam 1 Mg Tablet) 1 mg PO TID [facility] Last Admin: 10/07/24 14:28 Dose: 1 mg Magnesium Hydroxide (Milk Of Magnesia 30 Ml Oral.Susp) 30 ml PO DAILY PRN PRN Reason: Constipation Melatonin (Melatonin 3 Mg Tablet) 6 mg PO BEDTIME [facility] Last Admin: 10/06/24 20:04 Dose: 6 mg Memantine (Memantine Hcl 5 Mg Tablet) 5 mg PO DAILY [facility] Last Admin: 10/07/24 08:12 Dose: 5 mg Metoprolol Tartrate (Metoprolol Tartrate 25 Mg Tablet) 25 mg PO BID [facility]; Protocol Last Admin: 10/07/24 08:11 Dose: 25 mg Mupirocin (Mupirocin 2 % Oint 22 Gm Tube) 1 appl TOPICAL BID [facility]; Protocol Last Admin: 10/07/24 08:14 Dose: 1 appl Nitrofurantoin Macrocrystals (Nitrofurantoin Monohyd/M-Cryst 100 Mg Capsule) 100 mg PO BID [facility] Last Admin: 10/07/24 08:11 Dose: 100 mg Senna/Docusate Sodium (Sennosides/Docusate Sodium Tablet) 1 tab PO BID PRN PRN Reason: Constipation Trazodone HCl (Trazodone Hcl 100 Mg Tablet) 100 mg PO BEDTIME [facility] Last Admin: 10/06/24 20:04 Dose: 100 mg Trazodone HCl (Trazodone Hcl 50 Mg Tablet) 50 mg PO BEDTIME PRN PRN Reason: Insomnia Last Admin: 09/28/24 20:42 Dose: 50 mg Allergies Allergies Allergy/AdvReac Type Severity Reaction Status Date / Time No Known Allergies Allergy Verified 09/27/24 05:26 Assessment & Plan Assessment & Plan (1) Schizoaffective disorder: Qualifiers: Schizoaffective disorder type: unspecified Qualified Code(s): F25.9 - Schizoaffective disorder, unspecified Status: Acute Code(s): F25.9 - Schizoaffective disorder, unspecified (2) UTI (urinary tract infection): Status: Acute Code(s): N39.0 - Urinary tract infection, site not specified (3) PTSD (post-traumatic stress disorder): Status: Acute Code(s): F43.10 - Post-traumatic stress disorder, unspecified (4) Catatonia: Status: Acute Code(s): F06.1 - Catatonic disorder due to known physiological condition Plan Readmission in the context of medication non adherence. Off medications significant delusions, disorganized behavior, noticeable concern from Roommate and visiting nurse services. patient does present as guarded and paranoid. Perseverative on discharge. Reports he will not take medications however will order same so patient has the option should they change of mind. Educated on 3 day notice and Agu[place] Warning should they choose to perceive same, otherwise admitted on voluntary status. 09/30: encourage med adherence 10/01 Patient denies AVH. Slow moving with speech latency ; says she is all right. Not really able to explain why she ended up coming to the hospital -uti; discussed with hospitalist who will start antibiotic -considered Ativan for what seems like catatonic symptoms however staff who knows her says she is typically slow; will hold off for now 10/02 still with speech latency but less today... denies AVH; says i'm alright. She thinks maybe she's getting back to her regular self...Tried to discuss whether she stopped taking medications in the community prior to this admission, but she's not sure. -talking a little more freely today; other staff concur, so will hold off w/ ativan trial for now -consider increasing Rexulti though not wanting to worsen Parkinsonism (though risk is lower) -OT did [place] and patient improved since previous assessment 10/03 pt refused all her meds today. Patient with significant and increased speech latency and thought blocking; patient with odd, rocking movements and purposeless movements. On inquiry, regarding med refusal she says she did not take them because um...i don't think it helps... Patient continued refused despite sports book writer's numerous attempts to discuss; patient does not appreciate info regarding UTI and risks of not taking antibiotic; -patient does not have capacity Collateral from patient's daughter and VNA: -Patient stopped taking medications for several weeks prior to this hospitalization and was wandering in the community. Patient herself called the police but then said never mind however the police sent an ambulance for her which resulted in this a mission -Patient has history of trauma; slowed movements and speech at baseline 10/04 pt continues to refuse all medications; in meeting with pt she cannot seem to explain why. Pt continues to have odd movements and remains with significant speech latency and thought blocking and is increasingly tremulous. -pt is disorganized in speech and behavior and with odd movements in addition to Parkinsons; team agrees that she will do much better on the Geriatric unit whose milue is much less kinetic. 10/05 pt concern about UTI, did take medications today. order CMP as pt reported brown urine. BUN increased 29, with slight increase in Cr 0.83 (from 0.69). renal function stable, may be somewhat dehydrated. continue current tx. Formulation/clinical reasoning: Patient's confusion has worsened; not sure if it is due to psychosis or UTI (or possible burgeoning catatonic symptoms). At this point patient is now refusing medications. Patient has psychotic illness only minimally to moderately treated with Rexulti 2 mg; will consider increasing however patient is developing catatonic-like symptoms and so there is some concern that at the moment, increasing Rexulti could exacerbate catatonia; starting Ativan 1 mg t.i.d.. Patient also has UTI which could certainly be contributing to confusion. Patient has Parkinson's and uses a walker; While Ativan could potentially unbalance patient, currently she has remained steady, able to use her walker effectively and this point potential benefit of Ativan outweighs risk. Will move to transfer patient to Geriatric unit where she can be better attended. -patient does not have capacity; if patient has a healthcare proxy sports book writer would invoke healthcare proxy at this time 10/06 Patient doing much better on the geriatric unit, taking her medications, eating. Patient asked about her UTI and said that some of her urine was brown in the morning but then it had become clear. Asked sports book writer about antibiotic and accepted answer for continued treatment. No expressions of paranoid ideations -continue current medication regimen including Ativan as patient has improved -will review antibiotic 10/07 continue current treatment plan Reviewed microbiology and Macrobid is sensitive; will extend for few days Plan: CV HCP? Continue Ativan 1 mg t.i.d. to ensure catatonic symptoms fully resolved Continue Macrobid 100 mg b.i.d. for UTI; will extend for few more days since patient missed a few days early on Restarted Benztropine 0.5 q.h.s. Restarted Rexulti 2 mg daily restarted followin: Sinemet 25/100 b.i.d. Memantine 5 mg daily Metoprolol 25 mg b.i.d. mupirocin b.i.d. Atorvastatin 10 mg q.h.s. Trazodone 100 mg q.h.s. Patient educated on: diagnosis and medical condition Informed Consent: understands, does not understand and further education needed Reason for continued inpatient stay Substantial Risk for: rapid decompensation Time Spent With Patient Time: Total time managing care of this patient today ____ minutes.
[2024-10-07 20:27] VITALS: BP 97/54; PULSE 67; RESP 16; TEMP 37.1; O2SAT 96
[2024-10-08 08:00] VITALS: BP 122/64; PULSE 82; RESP 16; TEMP 36.7; O2SAT 98
[2024-10-08 08:33] VITALS: BP 122/64; PULSE 82
--- NOTE | 2024-10-08 10:47 | HO.PSYCHPN ---
Subjective Subjective Date of Service: 10/08/24 Reason For Visit: Psychosis Subjective Notes: Conditional Voluntary Interim History: Pt slept through the night. She continues to report concern in terms of color of urine. No burning when urinating nor pelvic pain. renal function is stable. on macrobid. she denies any other concerns. Review of Systems Review of Systems Denies any shortness of breath, chest pain, dizziness, lightheadedness, abdominal pain or discomfort, nausea vomiting or diarrhea Mental Status Exam Mental Status Exam Narrative: Appearance: wearing hospital gown, poor hygiene, in NAD behavior: cooperative Psychomotor: no overt retardation nor agitation Speech: Spontaneous, improved and more clearly enunciating words TP: Goal oriented TC: worried about UTI Mood: ok Affect: constricted Si: denies HI: denies VH/AH: may be internally preoccupied despite her denial Delusions: no overt delusional content but worried about uti Insight/judgment: very poor x 2 Memory/cog: alert, oriented to hospital, not situation. Diagnostics Vital Signs (24Hr): Vital Signs - 24 hr 10/07/24 20:27 10/08/24 08:00 10/08/24 08:33 Temperature 98.8 F 98.1 F Pulse Rate 67 82 82 Respiratory Rate 16 16 Blood Pressure 97/54 L 122/64 122/64 Pulse Oximetry 96 98 Oxygen Delivery Method Room Air Room Air BMI result Body Mass Index 18.2 Labs 09/27/24 05:41 10/05/24 13:37 Medications Medications Current Medications Acetaminophen (Acetaminophen 325 Mg Tablet) 650 mg PO Q6H PRN PRN Reason: Headache/Pain, Scale 1-10 Al Hydroxide/Mg Hydroxide (Magnesium Hydrox/Alum Hydrox 30 Ml Oral.Susp) 30 ml PO Q6H PRN PRN Reason: Heartburn/Nausea Atorvastatin Calcium (Atorvastatin Calcium 10 Mg Tablet) 10 mg PO BEDTIME [facility] Last Admin: 10/07/24 20:29 Dose: 10 mg Benztropine Mesylate (Benztropine Mesylate 0.5 Mg Tablet) 0.5 mg PO BEDTIME [facility] Last Admin: 10/07/24 20:30 Dose: 0.5 mg Brexpiprazole (Brexpiprazole 2 Mg Tablet) 2 mg PO DAILY [facility] Last Admin: 10/08/24 08:35 Dose: 2 mg Carbidopa/Levodopa (Carbidopa/Levodopa 25/100 Tablet) 1 tab PO BID@0900,1200 [facility] Last Admin: 10/08/24 08:32 Dose: 1 tab Hydroxyzine HCl (Hydroxyzine Hcl 25 Mg Tablet) 25 mg PO Q6H PRN PRN Reason: mild anxiety Lorazepam (Lorazepam 1 Mg Tablet) 1 mg PO TID [facility] Last Admin: 10/08/24 08:35 Dose: 1 mg Magnesium Hydroxide (Milk Of Magnesia 30 Ml Oral.Susp) 30 ml PO DAILY PRN PRN Reason: Constipation Melatonin (Melatonin 3 Mg Tablet) 6 mg PO BEDTIME [facility] Last Admin: 10/07/24 20:30 Dose: 6 mg Memantine (Memantine Hcl 5 Mg Tablet) 5 mg PO DAILY [facility] Last Admin: 10/08/24 08:35 Dose: 5 mg Metoprolol Tartrate (Metoprolol Tartrate 25 Mg Tablet) 25 mg PO BID [facility]; Protocol Last Admin: 10/08/24 08:33 Dose: 25 mg Mupirocin (Mupirocin 2 % Oint 22 Gm Tube) 1 appl TOPICAL BID [facility]; Protocol Last Admin: 10/08/24 08:37 Dose: 1 appl Nitrofurantoin Macrocrystals (Nitrofurantoin Monohyd/M-Cryst 100 Mg Capsule) 100 mg PO BID [facility] Stop: 10/11/24 23:59 Last Admin: 10/08/24 08:34 Dose: 100 mg Senna/Docusate Sodium (Sennosides/Docusate Sodium Tablet) 1 tab PO BID PRN PRN Reason: Constipation Trazodone HCl (Trazodone Hcl 100 Mg Tablet) 100 mg PO BEDTIME [facility] Last Admin: 10/07/24 20:30 Dose: 100 mg Trazodone HCl (Trazodone Hcl 50 Mg Tablet) 50 mg PO BEDTIME PRN PRN Reason: Insomnia Last Admin: 09/28/24 20:42 Dose: 50 mg Allergies Allergies Allergy/AdvReac Type Severity Reaction Status Date / Time No Known Allergies Allergy Verified 09/27/24 05:26 Assessment & Plan Assessment & Plan (1) Schizoaffective disorder: Qualifiers: Schizoaffective disorder type: unspecified Qualified Code(s): F25.9 - Schizoaffective disorder, unspecified Status: Acute Code(s): F25.9 - Schizoaffective disorder, unspecified (2) UTI (urinary tract infection): Status: Acute Code(s): N39.0 - Urinary tract infection, site not specified (3) PTSD (post-traumatic stress disorder): Status: Acute Code(s): F43.10 - Post-traumatic stress disorder, unspecified (4) Catatonia: Status: Acute Code(s): F06.1 - Catatonic disorder due to known physiological condition Plan Readmission in the context of medication non adherence. Off medications significant delusions, disorganized behavior, noticeable concern from Roommate and visiting nurse services. patient does present as guarded and paranoid. Perseverative on discharge. Reports he will not take medications however will order same so patient has the option should they change of mind. Educated on 3 day notice and [place] Warning should they choose to perceive same, otherwise admitted on voluntary status. 09/30: encourage med adherence 10/01 Patient denies AVH. Slow moving with speech latency ; says she is all right. Not really able to explain why she ended up coming to the hospital -uti; discussed with hospitalist who will start antibiotic -considered Ativan for what seems like catatonic symptoms however staff who knows her says she is typically slow; will hold off for now 10/02 still with speech latency but less today... denies AVH; says i'm alright. She thinks maybe she's getting back to her regular self...Tried to discuss whether she stopped taking medications in the community prior to this admission, but she's not sure. -talking a little more freely today; other staff concur, so will hold off w/ ativan trial for now -consider increasing Rexulti though not wanting to worsen Parkinsonism (though risk is lower) -OT did [place] and patient improved since previous assessment 10/03 pt refused all her meds today. Patient with significant and increased speech latency and thought blocking; patient with odd, rocking movements and purposeless movements. On inquiry, regarding med refusal she says she did not take them because um...i don't think it helps... Patient continued refused despite chief underwriter's numerous attempts to discuss; patient does not appreciate info regarding UTI and risks of not taking antibiotic; -patient does not have capacity Collateral from patient's daughter and VNA: -Patient stopped taking medications for several weeks prior to this hospitalization and was wandering in the community. Patient herself called the police but then said never mind however the police sent an ambulance for her which resulted in this a mission -Patient has history of trauma; slowed movements and speech at baseline 10/04 pt continues to refuse all medications; in meeting with pt she cannot seem to explain why. Pt continues to have odd movements and remains with significant speech latency and thought blocking and is increasingly tremulous. -pt is disorganized in speech and behavior and with odd movements in addition to Parkinsons; team agrees that she will do much better on the Geriatric unit whose milue is much less kinetic. 10/05 pt concern about UTI, did take medications today. order CMP as pt reported brown urine. BUN increased 29, with slight increase in Cr 0.83 (from 0.69). renal function stable, may be somewhat dehydrated. continue current tx. Formulation/clinical reasoning: Patient's confusion has worsened; not sure if it is due to psychosis or UTI (or possible burgeoning catatonic symptoms). At this point patient is now refusing medications. Patient has psychotic illness only minimally to moderately treated with Rexulti 2 mg; will consider increasing however patient is developing catatonic-like symptoms and so there is some concern that at the moment, increasing Rexulti could exacerbate catatonia; starting Ativan 1 mg t.i.d.. Patient also has UTI which could certainly be contributing to confusion. Patient has Parkinson's and uses a walker; While Ativan could potentially unbalance patient, currently she has remained steady, able to use her walker effectively and this point potential benefit of Ativan outweighs risk. Will move to transfer patient to Geriatric unit where she can be better attended. -patient does not have capacity; if patient has a healthcare proxy chief underwriter would invoke healthcare proxy at this time 10/06 Patient doing much better on the geriatric unit, taking her medications, eating. Patient asked about her UTI and said that some of her urine was brown in the morning but then it had become clear. Asked chief underwriter about antibiotic and accepted answer for continued treatment. No expressions of paranoid ideations -continue current medication regimen including Ativan as patient has improved -will review antibiotic 10/07 continue current treatment plan Reviewed microbiology and Macrobid is sensitive; will extend for few days 10/08 continue tx. Plan: CV HCP? Continue Ativan 1 mg t.i.d. to ensure catatonic symptoms fully resolved Continue Macrobid 100 mg b.i.d. for UTI; will extend for few more days since patient missed a few days early on Restarted Benztropine 0.5 q.h.s. Restarted Rexulti 2 mg daily restarted followin: Sinemet 25/100 b.i.d. Memantine 5 mg daily Metoprolol 25 mg b.i.d. mupirocin b.i.d. Atorvastatin 10 mg q.h.s. Trazodone 100 mg q.h.s. Reason for continued inpatient stay Substantial Risk for: inability to function Time Spent With Patient Time: Total time managing care of this patient today ____ minutes.
[2024-10-08 15:29] VITALS: BMI 18.2
--- NOTE | 2024-10-08 15:35 | MHC.CLN ---
NUTRITION DIET=REGULAR. QUALIFIES UNDERWEIGHT WITH BMI=18.2. REVIEW OF WEIGHT HX SHOWS WEIGHT STABLE X 3 MONTHS. INTAKE AT MOST MEALS 100%. NO ADDITIONAL NUTRITION INTERVENTIONS AT THIS TIME. RD TO MONITOR WEEKLY.
[2024-10-08 20:00] VITALS: BP 121/68; PULSE 66; RESP 16; TEMP 36.8; O2SAT 95
[2024-10-08 20:11] VITALS: BP 121/68; PULSE 66
[2024-10-09 08:20] VITALS: BP 130/64; PULSE 73; RESP 18; TEMP 36.8; O2SAT 95
[2024-10-09 16:23] LABS: Appearance Urine Clear; Glucose Urine UA Negative (Negative); PH 7.5 (5.0-9.0); Specific Gravity - Urine 1.010 (1.005-1.025); UMIC TRIGGER UACC YES
--- NOTE | 2024-10-09 16:31 | HO.PSYCHPN ---
Subjective Subjective Date of Service: 10/09/24 Reason For Visit: Psychosis Subjective Notes: Conditional Voluntary Interim History: Pt slept through the night. Pt reports brown urine, collected urine, which is clear. She is more visible. No overt psychosis or delusional content. She is taking medications as prescribed. she denies SI/HI. Review of Systems Review of Systems Denies any shortness of breath, chest pain, dizziness, lightheadedness, abdominal pain or discomfort, nausea vomiting or diarrhea Mental Status Exam Mental Status Exam Narrative: Appearance: wearing hospital gown, poor hygiene, in NAD behavior: cooperative Psychomotor: no overt retardation nor agitation Speech: Spontaneous, improved and more clearly enunciating words TP: Goal oriented TC: worried about UTI Mood: ok Affect: constricted Si: denies HI: denies VH/AH: may be internally preoccupied despite her denial Delusions: no overt delusional content but worried about uti Insight/judgment: very poor x 2 Memory/cog: alert, oriented to hospital, not situation. Diagnostics Vital Signs (24Hr): Vital Signs - 24 hr 10/08/24 20:00 10/08/24 20:11 10/09/24 08:20 Temperature 98.2 F 98.2 F Pulse Rate 66 66 73 Respiratory Rate 16 18 Blood Pressure 121/68 121/68 130/64 Pulse Oximetry 95 95 Oxygen Delivery Method Room Air Room Air BMI result Body Mass Index 18.2 Labs 09/27/24 05:41 10/05/24 13:37 Labs: Laboratory Results - last 48 hr 10/09/24 16:05 Urine Color Yellow Urine Appearance Clear Urine pH 7.5 Ur Specific [place] 1.010 Urine Protein Negative Urine Glucose (UA) Negative Urine Ketones Negative Urine Blood Negative Urine Nitrite Negative Ur Leukocyte Esterase Moderate (2+) H Medications Medications Current Medications Acetaminophen (Acetaminophen 325 Mg Tablet) 650 mg PO Q6H PRN PRN Reason: Headache/Pain, Scale 1-10 Al Hydroxide/Mg Hydroxide (Magnesium Hydrox/Alum Hydrox 30 Ml Oral.Susp) 30 ml PO Q6H PRN PRN Reason: Heartburn/Nausea Atorvastatin Calcium (Atorvastatin Calcium 10 Mg Tablet) 10 mg PO BEDTIME [facility] Last Admin: 10/08/24 20:11 Dose: 10 mg Benztropine Mesylate (Benztropine Mesylate 0.5 Mg Tablet) 0.5 mg PO BEDTIME [facility] Last Admin: 10/08/24 20:11 Dose: 0.5 mg Brexpiprazole (Brexpiprazole 2 Mg Tablet) 2 mg PO DAILY [facility] Last Admin: 10/09/24 08:41 Dose: 2 mg Carbidopa/Levodopa (Carbidopa/Levodopa 25/100 Tablet) 1 tab PO BID@0900,1200 [facility] Last Admin: 10/09/24 11:24 Dose: 1 tab Hydroxyzine HCl (Hydroxyzine Hcl 25 Mg Tablet) 25 mg PO Q6H PRN PRN Reason: mild anxiety Lorazepam (Lorazepam 1 Mg Tablet) 1 mg PO TID [facility] Last Admin: 10/09/24 14:15 Dose: 1 mg Magnesium Hydroxide (Milk Of Magnesia 30 Ml Oral.Susp) 30 ml PO DAILY PRN PRN Reason: Constipation Melatonin (Melatonin 3 Mg Tablet) 6 mg PO BEDTIME [facility] Last Admin: 10/08/24 20:10 Dose: 6 mg Memantine (Memantine Hcl 5 Mg Tablet) 5 mg PO DAILY [facility] Last Admin: 10/09/24 08:40 Dose: 5 mg Metoprolol Tartrate (Metoprolol Tartrate 25 Mg Tablet) 25 mg PO BID [facility]; Protocol Last Admin: 10/09/24 08:42 Dose: 25 mg Mupirocin (Mupirocin 2 % Oint 22 Gm Tube) 1 appl TOPICAL BID [facility]; Protocol Last Admin: 10/09/24 08:40 Dose: 1 appl Nitrofurantoin Macrocrystals (Nitrofurantoin Monohyd/M-Cryst 100 Mg Capsule) 100 mg PO BID [facility] Stop: 10/11/24 23:59 Last Admin: 10/09/24 08:41 Dose: 100 mg Senna/Docusate Sodium (Sennosides/Docusate Sodium Tablet) 1 tab PO BID PRN PRN Reason: Constipation Trazodone HCl (Trazodone Hcl 100 Mg Tablet) 100 mg PO BEDTIME [facility] Last Admin: 10/08/24 20:11 Dose: 100 mg Trazodone HCl (Trazodone Hcl 50 Mg Tablet) 50 mg PO BEDTIME PRN PRN Reason: Insomnia Last Admin: 09/28/24 20:42 Dose: 50 mg Allergies Allergies Allergy/AdvReac Type Severity Reaction Status Date / Time No Known Allergies Allergy Verified 09/27/24 05:26 Assessment & Plan Assessment & Plan (1) Schizoaffective disorder: Qualifiers: Schizoaffective disorder type: unspecified Qualified Code(s): F25.9 - Schizoaffective disorder, unspecified Status: Acute Code(s): F25.9 - Schizoaffective disorder, unspecified (2) UTI (urinary tract infection): Status: Acute Code(s): N39.0 - Urinary tract infection, site not specified (3) PTSD (post-traumatic stress disorder): Status: Acute Code(s): F43.10 - Post-traumatic stress disorder, unspecified (4) Catatonia: Status: Acute Code(s): F06.1 - Catatonic disorder due to known physiological condition Plan Readmission in the context of medication non adherence. Off medications significant delusions, disorganized behavior, noticeable concern from Roommate and visiting nurse services. patient does present as guarded and paranoid. Perseverative on discharge. Reports he will not take medications however will order same so patient has the option should they change of mind. Educated on 3 day notice and Agu[place] Warning should they choose to perceive same, otherwise admitted on voluntary status. 09/30: encourage med adherence 10/01 Patient denies AVH. Slow moving with speech latency ; says she is all right. Not really able to explain why she ended up coming to the hospital -uti; discussed with hospitalist who will start antibiotic -considered Ativan for what seems like catatonic symptoms however staff who knows her says she is typically slow; will hold off for now 10/02 still with speech latency but less today... denies AVH; says i'm alright. She thinks maybe she's getting back to her regular self...Tried to discuss whether she stopped taking medications in the community prior to this admission, but she's not sure. -talking a little more freely today; other staff concur, so will hold off w/ ativan trial for now -consider increasing Rexulti though not wanting to worsen Parkinsonism (though risk is lower) -OT did [place] and patient improved since previous assessment 10/03 pt refused all her meds today. Patient with significant and increased speech latency and thought blocking; patient with odd, rocking movements and purposeless movements. On inquiry, regarding med refusal she says she did not take them because um...i don't think it helps... Patient continued refused despite editorial writer's numerous attempts to discuss; patient does not appreciate info regarding UTI and risks of not taking antibiotic; -patient does not have capacity Collateral from patient's daughter and VNA: -Patient stopped taking medications for several weeks prior to this hospitalization and was wandering in the community. Patient herself called the police but then said never mind however the police sent an ambulance for her which resulted in this a mission -Patient has history of trauma; slowed movements and speech at baseline 10/04 pt continues to refuse all medications; in meeting with pt she cannot seem to explain why. Pt continues to have odd movements and remains with significant speech latency and thought blocking and is increasingly tremulous. -pt is disorganized in speech and behavior and with odd movements in addition to Parkinsons; team agrees that she will do much better on the Geriatric unit whose milue is much less kinetic. 10/05 pt concern about UTI, did take medications today. order CMP as pt reported brown urine. BUN increased 29, with slight increase in Cr 0.83 (from 0.69). renal function stable, may be somewhat dehydrated. continue current tx. Formulation/clinical reasoning: Patient's confusion has worsened; not sure if it is due to psychosis or UTI (or possible burgeoning catatonic symptoms). At this point patient is now refusing medications. Patient has psychotic illness only minimally to moderately treated with Rexulti 2 mg; will consider increasing however patient is developing catatonic-like symptoms and so there is some concern that at the moment, increasing Rexulti could exacerbate catatonia; starting Ativan 1 mg t.i.d.. Patient also has UTI which could certainly be contributing to confusion. Patient has Parkinson's and uses a walker; While Ativan could potentially unbalance patient, currently she has remained steady, able to use her walker effectively and this point potential benefit of Ativan outweighs risk. Will move to transfer patient to Geriatric unit where she can be better attended. -patient does not have capacity; if patient has a healthcare proxy editorial writer would invoke healthcare proxy at this time 10/06 Patient doing much better on the geriatric unit, taking her medications, eating. Patient asked about her UTI and said that some of her urine was brown in the morning but then it had become clear. Asked editorial writer about antibiotic and accepted answer for continued treatment. No expressions of paranoid ideations -continue current medication regimen including Ativan as patient has improved -will review antibiotic 10/07 continue current treatment plan Reviewed microbiology and Macrobid is sensitive; will extend for few days 10/08 continue tx. 10/09 continue tx. pt reported brown urine, but collection of urine is clean and clear. Plan: CV HCP? Continue Ativan 1 mg t.i.d. to ensure catatonic symptoms fully resolved Continue Macrobid 100 mg b.i.d. for UTI; will extend for few more days since patient missed a few days early on Restarted Benztropine 0.5 q.h.s. Restarted Rexulti 2 mg daily restarted followin: Sinemet 25/100 b.i.d. Memantine 5 mg daily Metoprolol 25 mg b.i.d. mupirocin b.i.d. Atorvastatin 10 mg q.h.s. Trazodone 100 mg q.h.s. Reason for continued inpatient stay Substantial Risk for: inability to function Time Spent With Patient Time: Total time managing care of this patient today ____ minutes.
[2024-10-09 16:35] LABS: Other Crystals Urine Present; UACC Culture Trigger YES
[2024-10-09 19:45] VITALS: BP 118/57; PULSE 72
[2024-10-09 20:00] VITALS: BP 118/57; PULSE 72; RESP 17; TEMP 36.6; O2SAT 97
[2024-10-10 08:46] VITALS: BP 103/57; PULSE 64; RESP 14; TEMP 36.8; O2SAT 98
--- NOTE | 2024-10-10 16:25 | HO.PSYCHPN ---
Subjective Subjective Date of Service: 10/10/24 Reason For Visit: Psychosis Subjective Notes: Conditional Voluntary Interim History: Pt slept through the night. Pt more visible on the unit and attended one group. Less preoccupied with color of urine. Denies any physical concerns. significant poverty of thought. speech is more spontaneous but content and ability to reason are very limited. Review of Systems Review of Systems Denies any shortness of breath, chest pain, dizziness, lightheadedness, abdominal pain or discomfort, nausea vomiting or diarrhea Mental Status Exam Mental Status Exam Narrative: Appearance: wearing hospital gown, poor hygiene, in NAD behavior: cooperative Psychomotor: no overt retardation nor agitation Speech: Spontaneous, improved and more clearly enunciating words TP: Goal oriented TC: worried about UTI Mood: ok Affect: constricted Si: denies HI: denies VH/AH: may be internally preoccupied despite her denial Delusions: no overt delusional content but worried about uti Insight/judgment: very poor x 2 Memory/cog: alert, oriented to hospital, not situation. Diagnostics Vital Signs (24Hr): Vital Signs - 24 hr 10/09/24 19:45 10/09/24 20:00 10/10/24 08:46 Temperature 97.8 F 98.2 F Pulse Rate 72 72 64 Respiratory Rate 17 14 Blood Pressure 118/57 L 118/57 L 103/57 L Pulse Oximetry 97 98 Oxygen Delivery Method Room Air Room Air BMI result Body Mass Index 18.2 Labs 09/27/24 05:41 10/05/24 13:37 Labs: Laboratory Results - last 48 hr 10/09/24 16:05 Urine Color Yellow Urine Appearance Clear Urine pH 7.5 Ur Specific [place] 1.010 Urine Protein Negative Urine Glucose (UA) Negative Urine Ketones Negative Urine Blood Negative Urine Nitrite Negative Ur Leukocyte Esterase Moderate (2+) H Urine RBC 0-2 Urine WBC 0-5 Ur Squamous Epith Cells 0-2 Other Crystals Present Urine Bacteria None Seen Hyaline Casts 0-2 Medications Medications Current Medications Acetaminophen (Acetaminophen 325 Mg Tablet) 650 mg PO Q6H PRN PRN Reason: Headache/Pain, Scale 1-10 Al Hydroxide/Mg Hydroxide (Magnesium Hydrox/Alum Hydrox 30 Ml Oral.Susp) 30 ml PO Q6H PRN PRN Reason: Heartburn/Nausea Atorvastatin Calcium (Atorvastatin Calcium 10 Mg Tablet) 10 mg PO BEDTIME [facility] Last Admin: 10/09/24 19:45 Dose: 10 mg Benztropine Mesylate (Benztropine Mesylate 0.5 Mg Tablet) 0.5 mg PO BEDTIME [facility] Last Admin: 10/09/24 19:46 Dose: 0.5 mg Brexpiprazole (Brexpiprazole 2 Mg Tablet) 2 mg PO DAILY [facility] Last Admin: 10/10/24 08:53 Dose: 2 mg Carbidopa/Levodopa (Carbidopa/Levodopa 25/100 Tablet) 1 tab PO BID@0900,1200 [facility] Last Admin: 10/10/24 11:26 Dose: 1 tab Hydroxyzine HCl (Hydroxyzine Hcl 25 Mg Tablet) 25 mg PO Q6H PRN PRN Reason: mild anxiety Lorazepam (Lorazepam 1 Mg Tablet) 1 mg PO TID [facility] Last Admin: 10/10/24 14:32 Dose: 1 mg Magnesium Hydroxide (Milk Of Magnesia 30 Ml Oral.Susp) 30 ml PO DAILY PRN PRN Reason: Constipation Melatonin (Melatonin 3 Mg Tablet) 6 mg PO BEDTIME [facility] Last Admin: 10/09/24 21:25 Dose: Not Given Memantine (Memantine Hcl 5 Mg Tablet) 5 mg PO DAILY [facility] Last Admin: 10/10/24 08:52 Dose: 5 mg Metoprolol Tartrate (Metoprolol Tartrate 25 Mg Tablet) 25 mg PO BID [facility]; Protocol Last Admin: 10/10/24 08:52 Dose: 25 mg Nitrofurantoin Macrocrystals (Nitrofurantoin Monohyd/M-Cryst 100 Mg Capsule) 100 mg PO BID [facility] Stop: 10/11/24 23:59 Last Admin: 10/10/24 08:53 Dose: 100 mg Senna/Docusate Sodium (Sennosides/Docusate Sodium Tablet) 1 tab PO BID PRN PRN Reason: Constipation Trazodone HCl (Trazodone Hcl 100 Mg Tablet) 100 mg PO BEDTIME [facility] Last Admin: 10/09/24 19:47 Dose: 100 mg Trazodone HCl (Trazodone Hcl 50 Mg Tablet) 50 mg PO BEDTIME PRN PRN Reason: Insomnia Last Admin: 09/28/24 20:42 Dose: 50 mg Allergies Allergies Allergy/AdvReac Type Severity Reaction Status Date / Time No Known Allergies Allergy Verified 09/27/24 05:26 Assessment & Plan Assessment & Plan (1) Schizoaffective disorder: Qualifiers: Schizoaffective disorder type: unspecified Qualified Code(s): F25.9 - Schizoaffective disorder, unspecified Status: Acute Code(s): F25.9 - Schizoaffective disorder, unspecified (2) UTI (urinary tract infection): Status: Acute Code(s): N39.0 - Urinary tract infection, site not specified (3) PTSD (post-traumatic stress disorder): Status: Acute Code(s): F43.10 - Post-traumatic stress disorder, unspecified (4) Catatonia: Status: Acute Code(s): F06.1 - Catatonic disorder due to known physiological condition Plan Readmission in the context of medication non adherence. Off medications significant delusions, disorganized behavior, noticeable concern from Roommate and visiting nurse services. patient does present as guarded and paranoid. Perseverative on discharge. Reports he will not take medications however will order same so patient has the option should they change of mind. Educated on 3 day notice and Aguil[place] Warning should they choose to perceive same, otherwise admitted on voluntary status. 09/30: encourage med adherence 10/01 Patient denies AVH. Slow moving with speech latency ; says she is all right. Not really able to explain why she ended up coming to the hospital -uti; discussed with hospitalist who will start antibiotic -considered Ativan for what seems like catatonic symptoms however staff who knows her says she is typically slow; will hold off for now 10/02 still with speech latency but less today... denies AVH; says i'm alright. She thinks maybe she's getting back to her regular self...Tried to discuss whether she stopped taking medications in the community prior to this admission, but she's not sure. -talking a little more freely today; other staff concur, so will hold off w/ ativan trial for now -consider increasing Rexulti though not wanting to worsen Parkinsonism (though risk is lower) -OT did [place] and patient improved since previous assessment 10/03 pt refused all her meds today. Patient with significant and increased speech latency and thought blocking; patient with odd, rocking movements and purposeless movements. On inquiry, regarding med refusal she says she did not take them because um...i don't think it helps... Patient continued refused despite designer/writer's numerous attempts to discuss; patient does not appreciate info regarding UTI and risks of not taking antibiotic; -patient does not have capacity Collateral from patient's daughter and VNA: -Patient stopped taking medications for several weeks prior to this hospitalization and was wandering in the community. Patient herself called the police but then said never mind however the police sent an ambulance for her which resulted in this a mission -Patient has history of trauma; slowed movements and speech at baseline 10/04 pt continues to refuse all medications; in meeting with pt she cannot seem to explain why. Pt continues to have odd movements and remains with significant speech latency and thought blocking and is increasingly tremulous. -pt is disorganized in speech and behavior and with odd movements in addition to Parkinsons; team agrees that she will do much better on the Geriatric unit whose milue is much less kinetic. 10/05 pt concern about UTI, did take medications today. order CMP as pt reported brown urine. BUN increased 29, with slight increase in Cr 0.83 (from 0.69). renal function stable, may be somewhat dehydrated. continue current tx. -patient does not have capacity; if patient has a healthcare proxy designer/writer would invoke healthcare proxy at this time 10/06 Patient doing much better on the geriatric unit, taking her medications, eating. Patient asked about her UTI and said that some of her urine was brown in the morning but then it had become clear. Asked designer/writer about antibiotic and accepted answer for continued treatment. No expressions of paranoid ideations -continue current medication regimen including Ativan as patient has improved -will review antibiotic 10/07 continue current treatment plan Reviewed microbiology and Macrobid is sensitive; will extend for few days 10/08 continue tx. 10/09 continue tx. pt reported brown urine, but collection of urine is clean and clear. 10/10 more visible, no overt psychosis or delusional content. Plan: CV HCP? Continue Ativan 1 mg t.i.d. to ensure catatonic symptoms fully resolved Continue Macrobid 100 mg b.i.d. for UTI; will extend for few more days since patient missed a few days early on Restarted Benztropine 0.5 q.h.s. Restarted Rexulti 2 mg daily restarted followin: Sinemet 25/100 b.i.d. Memantine 5 mg daily Metoprolol 25 mg b.i.d. mupirocin b.i.d. Atorvastatin 10 mg q.h.s. Trazodone 100 mg q.h.s. Reason for continued inpatient stay Substantial Risk for: inability to function Time Spent With Patient Time: Total time managing care of this patient today ____ minutes.
[2024-10-10 20:00] VITALS: BP 110/62; PULSE 67; RESP 16; TEMP 37.1; O2SAT 96
[2024-10-10 20:23] VITALS: BP 110/62; PULSE 67
[2024-10-11 08:41] VITALS: BP 102/58; PULSE 65; RESP 15; TEMP 36.7; O2SAT 96
--- NOTE | 2024-10-11 15:28 | P.PNPSI_ITS ---
Subjective Subjective Date of Service: 10/11/24 Reason For Visit: Psychosis Subjective Notes: Conditional Voluntary Interim History: Pt slept through the night. Pt continues to present as more visible on the unit and attended one group. Less preoccupied with color of urine. Denies any physical concerns. significant poverty of thought. speech is more spontaneous but content and ability to reason are very limited. No overt psychosis or delusions. However, some concerns in terms of her ability to care for herself. Review of Systems Review of Systems Denies any shortness of breath, chest pain, dizziness, lightheadedness, abdominal pain or discomfort, nausea vomiting or diarrhea Mental Status Exam Mental Status Exam Narrative: Appearance: wearing hospital gown, poor hygiene, in NAD behavior: cooperative Psychomotor: no overt retardation nor agitation Speech: Spontaneous, improved and more clearly enunciating words TP: Goal oriented TC: worried about UTI Mood: ok Affect: constricted Si: denies HI: denies VH/AH: may be internally preoccupied despite her denial Delusions: no overt delusional content but worried about uti Insight/judgment: very poor x 2 Memory/cog: alert, oriented to hospital, not situation. Diagnostics Vital Signs (24Hr): Vital Signs - 24 hr 10/10/24 20:00 10/10/24 20:23 10/11/24 08:41 Temperature 98.8 F 98.1 F Pulse Rate 67 67 65 Respiratory Rate 16 15 Blood Pressure 110/62 110/62 102/58 L Pulse Oximetry 96 96 Oxygen Delivery Method Room Air Room Air BMI result Body Mass Index 18.2 Labs 09/27/24 05:41 10/05/24 13:37 Labs: Laboratory Results - last 48 hr 10/09/24 16:05 Urine Color Yellow Urine Appearance Clear Urine pH 7.5 Ur Specific [place] 1.010 Urine Protein Negative Urine Glucose (UA) Negative Urine Ketones Negative Urine Blood Negative Urine Nitrite Negative Ur Leukocyte Esterase Moderate (2+) H Urine RBC 0-2 Urine WBC 0-5 Ur Squamous Epith Cells 0-2 Other Crystals Present Urine Bacteria None Seen Hyaline Casts 0-2 Medications Medications Current Medications Acetaminophen (Acetaminophen 325 Mg Tablet) 650 mg PO Q6H PRN PRN Reason: Headache/Pain, Scale 1-10 Al Hydroxide/Mg Hydroxide (Magnesium Hydrox/Alum Hydrox 30 Ml Oral.Susp) 30 ml PO Q6H PRN PRN Reason: Heartburn/Nausea Atorvastatin Calcium (Atorvastatin Calcium 10 Mg Tablet) 10 mg PO BEDTIME [facility] Last Admin: 10/10/24 20:24 Dose: 10 mg Benztropine Mesylate (Benztropine Mesylate 0.5 Mg Tablet) 0.5 mg PO BEDTIME [facility] Last Admin: 10/10/24 20:24 Dose: 0.5 mg Brexpiprazole (Brexpiprazole 2 Mg Tablet) 2 mg PO DAILY [facility] Last Admin: 10/11/24 08:42 Dose: 2 mg Carbidopa/Levodopa (Carbidopa/Levodopa 25/100 Tablet) 1 tab PO BID@0900,1200 [facility] Last Admin: 10/11/24 12:08 Dose: 1 tab Hydroxyzine HCl (Hydroxyzine Hcl 25 Mg Tablet) 25 mg PO Q6H PRN PRN Reason: mild anxiety Lorazepam (Lorazepam 1 Mg Tablet) 1 mg PO TID [facility] Last Admin: 10/11/24 14:32 Dose: 1 mg Magnesium Hydroxide (Milk Of Magnesia 30 Ml Oral.Susp) 30 ml PO DAILY PRN PRN Reason: Constipation Melatonin (Melatonin 3 Mg Tablet) 6 mg PO BEDTIME [facility] Last Admin: 10/10/24 20:24 Dose: 6 mg Memantine (Memantine Hcl 5 Mg Tablet) 5 mg PO DAILY [facility] Last Admin: 10/11/24 08:43 Dose: 5 mg Metoprolol Tartrate (Metoprolol Tartrate 25 Mg Tablet) 25 mg PO BID [facility]; Protocol Last Admin: 10/11/24 08:43 Dose: Not Given Senna/Docusate Sodium (Sennosides/Docusate Sodium Tablet) 1 tab PO BID PRN PRN Reason: Constipation Trazodone HCl (Trazodone Hcl 100 Mg Tablet) 100 mg PO BEDTIME [facility] Last Admin: 10/10/24 20:24 Dose: 100 mg Trazodone HCl (Trazodone Hcl 50 Mg Tablet) 50 mg PO BEDTIME PRN PRN Reason: Insomnia Last Admin: 09/28/24 20:42 Dose: 50 mg Allergies Allergies Allergy/AdvReac Type Severity Reaction Status Date / Time No Known Allergies Allergy Verified 09/27/24 05:26 Assessment & Plan Assessment & Plan (1) Schizoaffective disorder: Qualifiers: Schizoaffective disorder type: unspecified Qualified Code(s): F25.9 - Schizoaffective disorder, unspecified Status: Acute Code(s): F25.9 - Schizoaffective disorder, unspecified (2) UTI (urinary tract infection): Status: Acute Code(s): N39.0 - Urinary tract infection, site not specified (3) PTSD (post-traumatic stress disorder): Status: Acute Code(s): F43.10 - Post-traumatic stress disorder, unspecified (4) Catatonia: Status: Acute Code(s): F06.1 - Catatonic disorder due to known physiological condition Plan Readmission in the context of medication non adherence. Off medications significant delusions, disorganized behavior, noticeable concern from Roommate and visiting nurse services. patient does present as guarded and paranoid. Perseverative on discharge. Reports he will not take medications however will order same so patient has the option should they change of mind. Educated on 3 day notice and Agu[place] Warning should they choose to perceive same, otherwise admitted on voluntary status. 09/30: encourage med adherence 10/01 Patient denies AVH. Slow moving with speech latency ; says she is all right. Not really able to explain why she ended up coming to the hospital -uti; discussed with hospitalist who will start antibiotic -considered Ativan for what seems like catatonic symptoms however staff who knows her says she is typically slow; will hold off for now 10/02 still with speech latency but less today... denies AVH; says i'm alright. She thinks maybe she's getting back to her regular self...Tried to discuss whether she stopped taking medications in the community prior to this admission, but she's not sure. -talking a little more freely today; other staff concur, so will hold off w/ ativan trial for now -consider increasing Rexulti though not wanting to worsen Parkinsonism (though risk is lower) -OT did [place] and patient improved since previous assessment 10/03 pt refused all her meds today. Patient with significant and increased speech latency and thought blocking; patient with odd, rocking movements and purposeless movements. On inquiry, regarding med refusal she says she did not take them because um...i don't think it helps... Patient continued refused despite personal lines underwriter's numerous attempts to discuss; patient does not appreciate info regarding UTI and risks of not taking antibiotic; -patient does not have capacity Collateral from patient's daughter and VNA: -Patient stopped taking medications for several weeks prior to this hospitalization and was wandering in the community. Patient herself called the police but then said never mind however the police sent an ambulance for her which resulted in this a mission -Patient has history of trauma; slowed movements and speech at baseline 10/04 pt continues to refuse all medications; in meeting with pt she cannot seem to explain why. Pt continues to have odd movements and remains with significant speech latency and thought blocking and is increasingly tremulous. -pt is disorganized in speech and behavior and with odd movements in addition to Parkinsons; team agrees that she will do much better on the Geriatric unit whose milue is much less kinetic. 10/05 pt concern about UTI, did take medications today. order CMP as pt reported brown urine. BUN increased 29, with slight increase in Cr 0.83 (from 0.69). renal function stable, may be somewhat dehydrated. continue current tx. -patient does not have capacity; if patient has a healthcare proxy personal lines underwriter would invoke healthcare proxy at this time 10/06 Patient doing much better on the geriatric unit, taking her medications, eating. Patient asked about her UTI and said that some of her urine was brown in the morning but then it had become clear. Asked personal lines underwriter about antibiotic and accepted answer for continued treatment. No expressions of paranoid ideations -continue current medication regimen including Ativan as patient has improved -will review antibiotic 10/07 continue current treatment plan Reviewed microbiology and Macrobid is sensitive; will extend for few days 10/08 continue tx. 10/09 continue tx. pt reported brown urine, but collection of urine is clean and clear. 10/10 more visible, no overt psychosis or delusional content. 10/11 continue tx. may decrease ativan 0.5mg po TID, monitor return of catatonia Plan: CV HCP? Continue Ativan 1 mg t.i.d. to ensure catatonic symptoms fully resolved Continue Macrobid 100 mg b.i.d. for UTI; will extend for few more days since patient missed a few days early on Restarted Benztropine 0.5 q.h.s. Restarted Rexulti 2 mg daily restarted followin: Sinemet 25/100 b.i.d. Memantine 5 mg daily Metoprolol 25 mg b.i.d. mupirocin b.i.d. Atorvastatin 10 mg q.h.s. Trazodone 100 mg q.h.s. Reason for continued inpatient stay Substantial Risk for: inability to function Time Spent With Patient Time: Total time managing care of this patient today ____ minutes.
[2024-10-11 20:00] VITALS: BP 100/52; PULSE 80; RESP 17; TEMP 37.1; O2SAT 95
[2024-10-11 20:05] VITALS: BP 100/52; PULSE 80
[2024-10-12 08:59] VITALS: BP 106/64; PULSE 62; RESP 16; TEMP 36.5; O2SAT 98
--- NOTE | 2024-10-12 14:20 | HO.PSYCHPN ---
Subjective Subjective Date of Service: 10/12/24 Reason For Visit: Psychosis Subjective Notes: Conditional Voluntary Interim History: Pt slept through the night. Pt continues to present as more visible on the unit. She did take a shower. Denies any physical concerns. significant poverty of thought. speech is more spontaneous but content and ability to reason are very limited. No overt psychosis or delusions. However, some concerns in terms of her ability to care for herself. Review of Systems Review of Systems Denies any shortness of breath, chest pain, dizziness, lightheadedness, abdominal pain or discomfort, nausea vomiting or diarrhea Mental Status Exam Mental Status Exam Narrative: Appearance: wearing hospital gown, poor hygiene, in NAD behavior: cooperative Psychomotor: no overt retardation nor agitation Speech: Spontaneous, improved and more clearly enunciating words TP: Goal oriented TC: worried about UTI Mood: ok Affect: constricted Si: denies HI: denies VH/AH: may be internally preoccupied despite her denial Delusions: no overt delusional content but worried about uti Insight/judgment: very poor x 2 Memory/cog: alert, oriented to hospital, not situation. Diagnostics Vital Signs (24Hr): Vital Signs - 24 hr 10/11/24 20:00 10/11/24 20:05 10/12/24 08:59 Temperature 98.8 F 97.7 F Pulse Rate 80 80 62 Respiratory Rate 17 16 Blood Pressure 100/52 L 100/52 L 106/64 Pulse Oximetry 95 98 Oxygen Delivery Method Room Air Room Air BMI result Body Mass Index 18.2 Labs 09/27/24 05:41 10/05/24 13:37 Medications Medications Current Medications Acetaminophen (Acetaminophen 325 Mg Tablet) 650 mg PO Q6H PRN PRN Reason: Headache/Pain, Scale 1-10 Al Hydroxide/Mg Hydroxide (Magnesium Hydrox/Alum Hydrox 30 Ml Oral.Susp) 30 ml PO Q6H PRN PRN Reason: Heartburn/Nausea Atorvastatin Calcium (Atorvastatin Calcium 10 Mg Tablet) 10 mg PO BEDTIME [facility] Last Admin: 10/11/24 20:05 Dose: 10 mg Benztropine Mesylate (Benztropine Mesylate 0.5 Mg Tablet) 0.5 mg PO BEDTIME [facility] Last Admin: 10/11/24 20:05 Dose: 0.5 mg Brexpiprazole (Brexpiprazole 2 Mg Tablet) 2 mg PO DAILY [facility] Last Admin: 10/12/24 09:01 Dose: 2 mg Carbidopa/Levodopa (Carbidopa/Levodopa 25/100 Tablet) 1 tab PO BID@0900,1200 [facility] Last Admin: 10/12/24 13:31 Dose: 1 tab Hydroxyzine HCl (Hydroxyzine Hcl 25 Mg Tablet) 25 mg PO Q6H PRN PRN Reason: mild anxiety Lorazepam (Lorazepam 0.5 Mg Tablet) 0.5 mg PO TID [facility] Magnesium Hydroxide (Milk Of Magnesia 30 Ml Oral.Susp) 30 ml PO DAILY PRN PRN Reason: Constipation Melatonin (Melatonin 3 Mg Tablet) 6 mg PO BEDTIME [facility] Last Admin: 10/11/24 20:05 Dose: 6 mg Memantine (Memantine Hcl 5 Mg Tablet) 5 mg PO DAILY [facility] Last Admin: 10/12/24 09:01 Dose: 5 mg Metoprolol Tartrate (Metoprolol Tartrate 25 Mg Tablet) 25 mg PO BID [facility]; Protocol Last Admin: 10/12/24 09:00 Dose: 25 mg Senna/Docusate Sodium (Sennosides/Docusate Sodium Tablet) 1 tab PO BID PRN PRN Reason: Constipation Trazodone HCl (Trazodone Hcl 100 Mg Tablet) 100 mg PO BEDTIME [facility] Last Admin: 10/11/24 20:06 Dose: 100 mg Trazodone HCl (Trazodone Hcl 50 Mg Tablet) 50 mg PO BEDTIME PRN PRN Reason: Insomnia Last Admin: 09/28/24 20:42 Dose: 50 mg Allergies Allergies Allergy/AdvReac Type Severity Reaction Status Date / Time No Known Allergies Allergy Verified 09/27/24 05:26 Assessment & Plan Assessment & Plan (1) Schizoaffective disorder: Qualifiers: Schizoaffective disorder type: unspecified Qualified Code(s): F25.9 - Schizoaffective disorder, unspecified Status: Acute Code(s): F25.9 - Schizoaffective disorder, unspecified (2) UTI (urinary tract infection): Status: Acute Code(s): N39.0 - Urinary tract infection, site not specified (3) PTSD (post-traumatic stress disorder): Status: Acute Code(s): F43.10 - Post-traumatic stress disorder, unspecified (4) Catatonia: Status: Acute Code(s): F06.1 - Catatonic disorder due to known physiological condition Plan Readmission in the context of medication non adherence. Off medications significant delusions, disorganized behavior, noticeable concern from Roommate and visiting nurse services. patient does present as guarded and paranoid. Perseverative on discharge. Reports he will not take medications however will order same so patient has the option should they change of mind. Educated on 3 day notice and [place] Warning should they choose to perceive same, otherwise admitted on voluntary status. 09/30: encourage med adherence 10/01 Patient denies AVH. Slow moving with speech latency ; says she is all right. Not really able to explain why she ended up coming to the hospital -uti; discussed with hospitalist who will start antibiotic -considered Ativan for what seems like catatonic symptoms however staff who knows her says she is typically slow; will hold off for now 10/02 still with speech latency but less today... denies AVH; says i'm alright. She thinks maybe she's getting back to her regular self...Tried to discuss whether she stopped taking medications in the community prior to this admission, but she's not sure. -talking a little more freely today; other staff concur, so will hold off w/ ativan trial for now -consider increasing Rexulti though not wanting to worsen Parkinsonism (though risk is lower) -OT did [place] and patient improved since previous assessment 10/03 pt refused all her meds today. Patient with significant and increased speech latency and thought blocking; patient with odd, rocking movements and purposeless movements. On inquiry, regarding med refusal she says she did not take them because um...i don't think it helps... Patient continued refused despite typewriter assembly and parts inspector's numerous attempts to discuss; patient does not appreciate info regarding UTI and risks of not taking antibiotic; -patient does not have capacity Collateral from patient's daughter and VNA: -Patient stopped taking medications for several weeks prior to this hospitalization and was wandering in the community. Patient herself called the police but then said never mind however the police sent an ambulance for her which resulted in this a mission -Patient has history of trauma; slowed movements and speech at baseline 10/04 pt continues to refuse all medications; in meeting with pt she cannot seem to explain why. Pt continues to have odd movements and remains with significant speech latency and thought blocking and is increasingly tremulous. -pt is disorganized in speech and behavior and with odd movements in addition to Parkinsons; team agrees that she will do much better on the Geriatric unit whose milue is much less kinetic. 10/05 pt concern about UTI, did take medications today. order CMP as pt reported brown urine. BUN increased 29, with slight increase in Cr 0.83 (from 0.69). renal function stable, may be somewhat dehydrated. continue current tx. -patient does not have capacity; if patient has a healthcare proxy typewriter assembly and parts inspector would invoke healthcare proxy at this time 10/06 Patient doing much better on the geriatric unit, taking her medications, eating. Patient asked about her UTI and said that some of her urine was brown in the morning but then it had become clear. Asked typewriter assembly and parts inspector about antibiotic and accepted answer for continued treatment. No expressions of paranoid ideations -continue current medication regimen including Ativan as patient has improved -will review antibiotic 10/07 continue current treatment plan Reviewed microbiology and Macrobid is sensitive; will extend for few days 10/08 continue tx. 10/09 continue tx. pt reported brown urine, but collection of urine is clean and clear. 10/10 more visible, no overt psychosis or delusional content. 10/11 continue tx. may decrease ativan 0.5mg po TID, monitor return of catatonia 10/12 continue tx. Plan: CV HCP? Continue Ativan 1 mg t.i.d. to ensure catatonic symptoms fully resolved Continue Macrobid 100 mg b.i.d. for UTI; will extend for few more days since patient missed a few days early on Restarted Benztropine 0.5 q.h.s. Restarted Rexulti 2 mg daily restarted followin: Sinemet 25/100 b.i.d. Memantine 5 mg daily Metoprolol 25 mg b.i.d. mupirocin b.i.d. Atorvastatin 10 mg q.h.s. Trazodone 100 mg q.h.s. Reason for continued inpatient stay Substantial Risk for: inability to function Time Spent With Patient Time: Total time managing care of this patient today ____ minutes.
[2024-10-12 19:38] VITALS: BP 109/56; PULSE 75; RESP 15; TEMP 36.9; O2SAT 95
[2024-10-12 19:41] VITALS: BP 109/56; PULSE 75
[2024-10-13 08:00] VITALS: BP 111/53; PULSE 60; RESP 16; TEMP 36.9; O2SAT 96
--- NOTE | 2024-10-13 09:40 | HO.PSYCHPN ---
Subjective Subjective Date of Service: 10/13/24 Reason For Visit: Psychosis Interim History: Pt seen, discussed with her team. Team reports some improvement. Pt is dressed, taking all meds including Macrobid and is more involved in the milieu. Denies sx of concern today, preparing to have her lunch which she is looking forward to she reports. Medication Compliance: Yes Side effects from medications: No Attending Groups: Intermittent Review of Systems Acute medical concerns: No Review of Systems Review of Systems Denies Yes Unobtainable due to mental status Mental Status Exam Mental Status Exam Patient Appearance: Fatigued and Appropriate Patient Orientation: Person and Place Level of Consciousness: Alert Patient Behavior: Cooperative Mood Description: Withdrawn Affect Description: Withdrawn Ability to Follow Directions: Good Speech Pattern: Impoverished Memory Description: Episodic Impaired Hallucinations: None ( no ) Delusions: Present Thought Process: Rumination Thought Content: positive for Perseveration and positive for Tangential Judgement: Fair Diagnostics Vital Signs (24Hr): Vital Signs - 24 hr 10/12/24 19:38 10/12/24 19:41 10/13/24 08:00 Temperature 98.4 F 98.4 F Pulse Rate 75 75 60 Respiratory Rate 15 16 Blood Pressure 109/56 L 109/56 L 111/53 L Pulse Oximetry 95 96 Oxygen Delivery Method Room Air Room Air BMI result Body Mass Index 18.2 Labs 09/27/24 05:41 10/05/24 13:37 Medications Medications Current Medications Acetaminophen (Acetaminophen 325 Mg Tablet) 650 mg PO Q6H PRN PRN Reason: Headache/Pain, Scale 1-10 Al Hydroxide/Mg Hydroxide (Magnesium Hydrox/Alum Hydrox 30 Ml Oral.Susp) 30 ml PO Q6H PRN PRN Reason: Heartburn/Nausea Atorvastatin Calcium (Atorvastatin Calcium 10 Mg Tablet) 10 mg PO BEDTIME [facility] Last Admin: 10/12/24 19:41 Dose: 10 mg Benztropine Mesylate (Benztropine Mesylate 0.5 Mg Tablet) 0.5 mg PO BEDTIME [facility] Last Admin: 10/12/24 19:40 Dose: 0.5 mg Brexpiprazole (Brexpiprazole 2 Mg Tablet) 2 mg PO DAILY [facility] Last Admin: 10/13/24 08:40 Dose: 2 mg Carbidopa/Levodopa (Carbidopa/Levodopa 25/100 Tablet) 1 tab PO BID@0900,1200 [facility] Last Admin: 10/13/24 08:39 Dose: 1 tab Hydroxyzine HCl (Hydroxyzine Hcl 25 Mg Tablet) 25 mg PO Q6H PRN PRN Reason: mild anxiety Lorazepam (Lorazepam 0.5 Mg Tablet) 0.5 mg PO TID [facility] Last Admin: 10/13/24 08:39 Dose: 0.5 mg Magnesium Hydroxide (Milk Of Magnesia 30 Ml Oral.Susp) 30 ml PO DAILY PRN PRN Reason: Constipation Melatonin (Melatonin 3 Mg Tablet) 6 mg PO BEDTIME [facility] Last Admin: 10/12/24 19:41 Dose: 6 mg Memantine (Memantine Hcl 5 Mg Tablet) 5 mg PO DAILY [facility] Last Admin: 10/13/24 08:39 Dose: 5 mg Metoprolol Tartrate (Metoprolol Tartrate 25 Mg Tablet) 25 mg PO BID [facility]; Protocol Last Admin: 10/13/24 08:40 Dose: 25 mg Senna/Docusate Sodium (Sennosides/Docusate Sodium Tablet) 1 tab PO BID PRN PRN Reason: Constipation Trazodone HCl (Trazodone Hcl 100 Mg Tablet) 100 mg PO BEDTIME [facility] Last Admin: 10/12/24 19:41 Dose: 100 mg Trazodone HCl (Trazodone Hcl 50 Mg Tablet) 50 mg PO BEDTIME PRN PRN Reason: Insomnia Last Admin: 09/28/24 20:42 Dose: 50 mg Allergies Allergies Allergy/AdvReac Type Severity Reaction Status Date / Time No Known Allergies Allergy Verified 09/27/24 05:26 Assessment & Plan Assessment & Plan (1) Schizoaffective disorder: Qualifiers: Schizoaffective disorder type: unspecified Qualified Code(s): F25.9 - Schizoaffective disorder, unspecified Status: Acute Code(s): F25.9 - Schizoaffective disorder, unspecified (2) UTI (urinary tract infection): Status: Acute Code(s): N39.0 - Urinary tract infection, site not specified (3) PTSD (post-traumatic stress disorder): Status: Acute Code(s): F43.10 - Post-traumatic stress disorder, unspecified (4) Catatonia: Status: Acute Code(s): F06.1 - Catatonic disorder due to known physiological condition Plan Readmission in the context of medication non adherence. Off medications significant delusions, disorganized behavior, noticeable concern from Roommate and visiting nurse services. patient does present as guarded and paranoid. Perseverative on discharge. Reports he will not take medications however will order same so patient has the option should they change of mind. Educated on 3 day notice and Agu[place] Warning should they choose to perceive same, otherwise admitted on voluntary status. 09/30: encourage med adherence 10/01 Patient denies AVH. Slow moving with speech latency ; says she is all right. Not really able to explain why she ended up coming to the hospital -uti; discussed with hospitalist who will start antibiotic -considered Ativan for what seems like catatonic symptoms however staff who knows her says she is typically slow; will hold off for now 10/02 still with speech latency but less today... denies AVH; says i'm alright. She thinks maybe she's getting back to her regular self...Tried to discuss whether she stopped taking medications in the community prior to this admission, but she's not sure. -talking a little more freely today; other staff concur, so will hold off w/ ativan trial for now -consider increasing Rexulti though not wanting to worsen Parkinsonism (though risk is lower) -OT did [place] and patient improved since previous assessment 10/03 pt refused all her meds today. Patient with significant and increased speech latency and thought blocking; patient with odd, rocking movements and purposeless movements. On inquiry, regarding med refusal she says she did not take them because um...i don't think it helps... Patient continued refused despite technical publications writer's numerous attempts to discuss; patient does not appreciate info regarding UTI and risks of not taking antibiotic; -patient does not have capacity Collateral from patient's daughter and VNA: -Patient stopped taking medications for several weeks prior to this hospitalization and was wandering in the community. Patient herself called the police but then said never mind however the police sent an ambulance for her which resulted in this a mission -Patient has history of trauma; slowed movements and speech at baseline 10/04 pt continues to refuse all medications; in meeting with pt she cannot seem to explain why. Pt continues to have odd movements and remains with significant speech latency and thought blocking and is increasingly tremulous. -pt is disorganized in speech and behavior and with odd movements in addition to Parkinsons; team agrees that she will do much better on the Geriatric unit whose milue is much less kinetic. 10/05 pt concern about UTI, did take medications today. order CMP as pt reported brown urine. BUN increased 29, with slight increase in Cr 0.83 (from 0.69). renal function stable, may be somewhat dehydrated. continue current tx. -patient does not have capacity; if patient has a healthcare proxy technical publications writer would invoke healthcare proxy at this time 10/06 Patient doing much better on the geriatric unit, taking her medications, eating. Patient asked about her UTI and said that some of her urine was brown in the morning but then it had become clear. Asked technical publications writer about antibiotic and accepted answer for continued treatment. No expressions of paranoid ideations -continue current medication regimen including Ativan as patient has improved -will review antibiotic 10/07 continue current treatment plan Reviewed microbiology and Macrobid is sensitive; will extend for few days 10/08 continue tx. 10/09 continue tx. pt reported brown urine, but collection of urine is clean and clear. 10/10 more visible, no overt psychosis or delusional content. 10/11 continue tx. may decrease ativan 0.5mg po TID, monitor return of catatonia 10/12 continue tx. 10/13 continue tx. No evidence of sx of catatonia observed today. Plan: CV HCP? Continue Ativan 1 mg t.i.d. to ensure catatonic symptoms fully resolved Continue Macrobid 100 mg b.i.d. for UTI; will extend for few more days since patient missed a few days early on Restarted Benztropine 0.5 q.h.s. Restarted Rexulti 2 mg daily restarted followin: Sinemet 25/100 b.i.d. Memantine 5 mg daily Metoprolol 25 mg b.i.d. mupirocin b.i.d. Atorvastatin 10 mg q.h.s. Trazodone 100 mg q.h.s. Reason for continued inpatient stay Substantial Risk for: rapid decompensation Time Spent With Patient Time: Total time managing care of this patient today ____ minutes.
[2024-10-13 19:57] VITALS: BP 104/56; PULSE 61; RESP 16; TEMP 36.7; O2SAT 96
[2024-10-13 19:59] VITALS: BP 104/56; PULSE 61
[2024-10-14 08:37] VITALS: BP 114/58; PULSE 61; RESP 14; TEMP 36.6; O2SAT 98
--- NOTE | 2024-10-14 13:31 | HO.PSYCHPN ---
Subjective Subjective Date of Service: 10/14/24 Reason For Visit: Psychosis Interim History: Pt seen in the milieu, discussed with her team who report she is calmer, pleasant, less withdrawn, with more attention to ADL's, having showered and currently eating lunch. Pt smiles when approached, offers a greeting and states she is having a good day. Medication Compliance: Yes Side effects from medications: No Attending Groups: Yes Review of Systems Acute medical concerns: No Review of Systems Review of Systems good Mental Status Exam Mental Status Exam Patient Appearance: Appropriate Patient Orientation: Person, Place and Situation Level of Consciousness: Alert Patient Behavior: Cooperative Mood Description: Calm Affect Description: Calm Patient Cognition Impaired: No Ability to Follow Directions: Good Speech Pattern: Impoverished Memory Description: Episodic Impaired Hallucinations: None ( no ) Delusions: Present Thought Process: Rumination Thought Content: positive for Perseveration and positive for Tangential Judgement: Fair Diagnostics Vital Signs (24Hr): Vital Signs - 24 hr 10/13/24 19:57 10/13/24 19:59 10/14/24 08:37 Temperature 98.1 F 97.8 F Pulse Rate 61 61 61 Respiratory Rate 16 14 Blood Pressure 104/56 L 104/56 L 114/58 L Pulse Oximetry 96 98 Oxygen Delivery Method Room Air Room Air BMI result Body Mass Index 18.2 Labs 09/27/24 05:41 10/05/24 13:37 Medications Medications Current Medications Acetaminophen (Acetaminophen 325 Mg Tablet) 650 mg PO Q6H PRN PRN Reason: Headache/Pain, Scale 1-10 Al Hydroxide/Mg Hydroxide (Magnesium Hydrox/Alum Hydrox 30 Ml Oral.Susp) 30 ml PO Q6H PRN PRN Reason: Heartburn/Nausea Atorvastatin Calcium (Atorvastatin Calcium 10 Mg Tablet) 10 mg PO BEDTIME [facility] Last Admin: 10/13/24 19:59 Dose: 10 mg Benztropine Mesylate (Benztropine Mesylate 0.5 Mg Tablet) 0.5 mg PO BEDTIME [facility] Last Admin: 10/13/24 19:59 Dose: 0.5 mg Brexpiprazole (Brexpiprazole 2 Mg Tablet) 2 mg PO DAILY [facility] Last Admin: 10/14/24 08:40 Dose: 2 mg Carbidopa/Levodopa (Carbidopa/Levodopa 25/100 Tablet) 1 tab PO BID@0900,1200 [facility] Last Admin: 10/14/24 11:27 Dose: 1 tab Hydroxyzine HCl (Hydroxyzine Hcl 25 Mg Tablet) 25 mg PO Q6H PRN PRN Reason: mild anxiety Lorazepam (Lorazepam 0.5 Mg Tablet) 0.5 mg PO TID [facility] Last Admin: 10/14/24 08:40 Dose: 0.5 mg Magnesium Hydroxide (Milk Of Magnesia 30 Ml Oral.Susp) 30 ml PO DAILY PRN PRN Reason: Constipation Melatonin (Melatonin 3 Mg Tablet) 6 mg PO BEDTIME [facility] Last Admin: 10/13/24 19:58 Dose: 6 mg Memantine (Memantine Hcl 5 Mg Tablet) 5 mg PO DAILY [facility] Last Admin: 10/14/24 08:40 Dose: 5 mg Metoprolol Tartrate (Metoprolol Tartrate 25 Mg Tablet) 25 mg PO BID [facility]; Protocol Last Admin: 10/14/24 08:40 Dose: 25 mg Senna/Docusate Sodium (Sennosides/Docusate Sodium Tablet) 1 tab PO BID PRN PRN Reason: Constipation Trazodone HCl (Trazodone Hcl 100 Mg Tablet) 100 mg PO BEDTIME [facility] Last Admin: 10/13/24 19:59 Dose: 100 mg Trazodone HCl (Trazodone Hcl 50 Mg Tablet) 50 mg PO BEDTIME PRN PRN Reason: Insomnia Last Admin: 09/28/24 20:42 Dose: 50 mg Allergies Allergies Allergy/AdvReac Type Severity Reaction Status Date / Time No Known Allergies Allergy Verified 09/27/24 05:26 Assessment & Plan Assessment & Plan (1) Schizoaffective disorder: Qualifiers: Schizoaffective disorder type: unspecified Qualified Code(s): F25.9 - Schizoaffective disorder, unspecified Status: Acute Code(s): F25.9 - Schizoaffective disorder, unspecified (2) UTI (urinary tract infection): Status: Acute Code(s): N39.0 - Urinary tract infection, site not specified (3) PTSD (post-traumatic stress disorder): Status: Acute Code(s): F43.10 - Post-traumatic stress disorder, unspecified (4) Catatonia: Status: Acute Code(s): F06.1 - Catatonic disorder due to known physiological condition Plan Readmission in the context of medication non adherence. Off medications significant delusions, disorganized behavior, noticeable concern from Roommate and visiting nurse services. patient does present as guarded and paranoid. Perseverative on discharge. Reports he will not take medications however will order same so patient has the option should they change of mind. Educated on 3 day notice and [place] Warning should they choose to perceive same, otherwise admitted on voluntary status. 09/30: encourage med adherence 10/01 Patient denies AVH. Slow moving with speech latency ; says she is all right. Not really able to explain why she ended up coming to the hospital -uti; discussed with hospitalist who will start antibiotic -considered Ativan for what seems like catatonic symptoms however staff who knows her says she is typically slow; will hold off for now 10/02 still with speech latency but less today... denies AVH; says i'm alright. She thinks maybe she's getting back to her regular self...Tried to discuss whether she stopped taking medications in the community prior to this admission, but she's not sure. -talking a little more freely today; other staff concur, so will hold off w/ ativan trial for now -consider increasing Rexulti though not wanting to worsen Parkinsonism (though risk is lower) -OT did [place] and patient improved since previous assessment 10/03 pt refused all her meds today. Patient with significant and increased speech latency and thought blocking; patient with odd, rocking movements and purposeless movements. On inquiry, regarding med refusal she says she did not take them because um...i don't think it helps... Patient continued refused despite blurb writer's numerous attempts to discuss; patient does not appreciate info regarding UTI and risks of not taking antibiotic; -patient does not have capacity Collateral from patient's daughter and VNA: -Patient stopped taking medications for several weeks prior to this hospitalization and was wandering in the community. Patient herself called the police but then said never mind however the police sent an ambulance for her which resulted in this a mission -Patient has history of trauma; slowed movements and speech at baseline 10/04 pt continues to refuse all medications; in meeting with pt she cannot seem to explain why. Pt continues to have odd movements and remains with significant speech latency and thought blocking and is increasingly tremulous. -pt is disorganized in speech and behavior and with odd movements in addition to Parkinsons; team agrees that she will do much better on the Geriatric unit whose milue is much less kinetic. 10/05 pt concern about UTI, did take medications today. order CMP as pt reported brown urine. BUN increased 29, with slight increase in Cr 0.83 (from 0.69). renal function stable, may be somewhat dehydrated. continue current tx. -patient does not have capacity; if patient has a healthcare proxy blurb writer would invoke healthcare proxy at this time 10/06 Patient doing much better on the geriatric unit, taking her medications, eating. Patient asked about her UTI and said that some of her urine was brown in the morning but then it had become clear. Asked blurb writer about antibiotic and accepted answer for continued treatment. No expressions of paranoid ideations -continue current medication regimen including Ativan as patient has improved -will review antibiotic 10/07 continue current treatment plan Reviewed microbiology and Macrobid is sensitive; will extend for few days 10/08 continue tx. 10/09 continue tx. pt reported brown urine, but collection of urine is clean and clear. 10/10 more visible, no overt psychosis or delusional content. 10/11 continue tx. may decrease ativan 0.5mg po TID, monitor return of catatonia 10/12 continue tx. 10/14 no sx of catatonia evidenced today. Continue tx Plan: CV HCP? Continue Ativan 1 mg t.i.d. to ensure catatonic symptoms fully resolved Continue Macrobid 100 mg b.i.d. for UTI; will extend for few more days since patient missed a few days early on Restarted Benztropine 0.5 q.h.s. Restarted Rexulti 2 mg daily restarted followin: Sinemet 25/100 b.i.d. Memantine 5 mg daily Metoprolol 25 mg b.i.d. mupirocin b.i.d. Atorvastatin 10 mg q.h.s. Trazodone 100 mg q.h.s. Reason for continued inpatient stay Substantial Risk for: rapid decompensation Time Spent With Patient Time: Total time managing care of this patient today ____ minutes.
[2024-10-14 20:28] VITALS: BP 100/51; PULSE 63; RESP 16; TEMP 37.1; O2SAT 95
[2024-10-14 21:09] VITALS: BP 100/51; PULSE 63
[2024-10-15 08:32] VITALS: BP 122/60; PULSE 66; RESP 18; TEMP 36.3; O2SAT 100
--- NOTE | 2024-10-15 08:52 | HO.PSYCHPN ---
Subjective Subjective Date of Service: 10/15/24 Reason For Visit: Psychosis Subjective Notes: Conditional Voluntary Interim History: Pt sleeping through the night. She presents with brighter affect. She has been more visible on the unit. No overt psychosis or delusions. She asks about when she will be going home. She is tolerating current medications. No SI/HI. She is taking medications as prescribed. Review of Systems Review of Systems good Yes Unobtainable due to mental status Mental Status Exam Mental Status Exam Narrative: Appearance: wearing hospital gown, poor hygiene, in NAD behavior: cooperative Psychomotor: no overt retardation nor agitation Speech: Spontaneous, improved and more clearly enunciating words TP: Goal oriented TC: doing well, wondering about d/c Mood: ok Affect: constricted Si: denies HI: denies VH/AH:no overt Delusions: no overt delusional Insight/judgment: very poor x 2 Memory/cog: alert, oriented x 3. Diagnostics Vital Signs (24Hr): Vital Signs - 24 hr 10/14/24 20:28 10/14/24 21:09 10/15/24 08:32 Temperature 98.8 F 97.4 F Pulse Rate 63 63 66 Respiratory Rate 16 18 Blood Pressure 100/51 L 100/51 L 122/60 Pulse Oximetry 95 100 Oxygen Delivery Method Room Air Room Air BMI result Body Mass Index 18.2 Labs 09/27/24 05:41 10/05/24 13:37 Medications Medications Current Medications Acetaminophen (Acetaminophen 325 Mg Tablet) 650 mg PO Q6H PRN PRN Reason: Headache/Pain, Scale 1-10 Al Hydroxide/Mg Hydroxide (Magnesium Hydrox/Alum Hydrox 30 Ml Oral.Susp) 30 ml PO Q6H PRN PRN Reason: Heartburn/Nausea Atorvastatin Calcium (Atorvastatin Calcium 10 Mg Tablet) 10 mg PO BEDTIME SHAQ Last Admin: 10/14/24 21:09 Dose: 10 mg Benztropine Mesylate (Benztropine Mesylate 0.5 Mg Tablet) 0.5 mg PO BEDTIME SHAQ Last Admin: 10/14/24 21:09 Dose: 0.5 mg Brexpiprazole (Brexpiprazole 2 Mg Tablet) 2 mg PO DAILY SHAQ Last Admin: 10/15/24 08:33 Dose: 2 mg Carbidopa/Levodopa (Carbidopa/Levodopa 25/100 Tablet) 1 tab PO BID@0900,1200 SHAQ Last Admin: 10/15/24 08:34 Dose: 1 tab Hydroxyzine HCl (Hydroxyzine Hcl 25 Mg Tablet) 25 mg PO Q6H PRN PRN Reason: mild anxiety Lorazepam (Lorazepam 0.5 Mg Tablet) 0.5 mg PO TID [facility] Last Admin: 10/15/24 08:33 Dose: 0.5 mg Magnesium Hydroxide (Milk Of Magnesia 30 Ml Oral.Susp) 30 ml PO DAILY PRN PRN Reason: Constipation Melatonin (Melatonin 3 Mg Tablet) 6 mg PO BEDTIME [facility] Last Admin: 10/14/24 21:09 Dose: 6 mg Memantine (Memantine Hcl 5 Mg Tablet) 5 mg PO DAILY [facility] Last Admin: 10/15/24 08:34 Dose: 5 mg Metoprolol Tartrate (Metoprolol Tartrate 25 Mg Tablet) 25 mg PO BID [facility]; Protocol Last Admin: 10/15/24 08:33 Dose: 25 mg Senna/Docusate Sodium (Sennosides/Docusate Sodium Tablet) 1 tab PO BID PRN PRN Reason: Constipation Trazodone HCl (Trazodone Hcl 100 Mg Tablet) 100 mg PO BEDTIME [facility] Last Admin: 10/14/24 21:09 Dose: 100 mg Trazodone HCl (Trazodone Hcl 50 Mg Tablet) 50 mg PO BEDTIME PRN PRN Reason: Insomnia Last Admin: 09/28/24 20:42 Dose: 50 mg Allergies Allergies Allergy/AdvReac Type Severity Reaction Status Date / Time No Known Allergies Allergy Verified 09/27/24 05:26 Assessment & Plan Assessment & Plan (1) Schizoaffective disorder: Qualifiers: Schizoaffective disorder type: unspecified Qualified Code(s): F25.9 - Schizoaffective disorder, unspecified Status: Acute Code(s): F25.9 - Schizoaffective disorder, unspecified (2) UTI (urinary tract infection): Status: Acute Code(s): N39.0 - Urinary tract infection, site not specified Assessment and Plan: resolved. (3) PTSD (post-traumatic stress disorder): Status: Acute Code(s): F43.10 - Post-traumatic stress disorder, unspecified (4) Catatonia: Status: Acute Code(s): F06.1 - Catatonic disorder due to known physiological condition Assessment and Plan: resolved. Plan Readmission in the context of medication non adherence. Off medications significant delusions, disorganized behavior, noticeable concern from Roommate and visiting nurse services. patient does present as guarded and paranoid. Perseverative on discharge. Reports he will not take medications however will order same so patient has the option should they change of mind. Educated on 3 day notice and Aguilera Warning should they choose to perceive same, otherwise admitted on voluntary status. 09/30: encourage med adherence 10/01 Patient denies AVH. Slow moving with speech latency ; says she is all right. Not really able to explain why she ended up coming to the hospital -uti; discussed with hospitalist who will start antibiotic -considered Ativan for what seems like catatonic symptoms however staff who knows her says she is typically slow; will hold off for now 10/02 still with speech latency but less today... denies AVH; says i'm alright. She thinks maybe she's getting back to her regular self...Tried to discuss whether she stopped taking medications in the community prior to this admission, but she's not sure. -talking a little more freely today; other staff concur, so will hold off w/ ativan trial for now -consider increasing Rexulti though not wanting to worsen Parkinsonism (though risk is lower) -OT did [place] and patient improved since previous assessment 10/03 pt refused all her meds today. Patient with significant and increased speech latency and thought blocking; patient with odd, rocking movements and purposeless movements. On inquiry, regarding med refusal she says she did not take them because um...i don't think it helps... Patient continued refused despite assembly instructions writer's numerous attempts to discuss; patient does not appreciate info regarding UTI and risks of not taking antibiotic; -patient does not have capacity Collateral from patient's daughter and VNA: -Patient stopped taking medications for several weeks prior to this hospitalization and was wandering in the community. Patient herself called the police but then said never mind however the police sent an ambulance for her which resulted in this a mission -Patient has history of trauma; slowed movements and speech at baseline 10/04 pt continues to refuse all medications; in meeting with pt she cannot seem to explain why. Pt continues to have odd movements and remains with significant speech latency and thought blocking and is increasingly tremulous. -pt is disorganized in speech and behavior and with odd movements in addition to Parkinsons; team agrees that she will do much better on the Geriatric unit whose milue is much less kinetic. 10/05 pt concern about UTI, did take medications today. order CMP as pt reported brown urine. BUN increased 29, with slight increase in Cr 0.83 (from 0.69). renal function stable, may be somewhat dehydrated. continue current tx. -patient does not have capacity; if patient has a healthcare proxy assembly instructions writer would invoke healthcare proxy at this time 10/06 Patient doing much better on the geriatric unit, taking her medications, eating. Patient asked about her UTI and said that some of her urine was brown in the morning but then it had become clear. Asked assembly instructions writer about antibiotic and accepted answer for continued treatment. No expressions of paranoid ideations -continue current medication regimen including Ativan as patient has improved -will review antibiotic 10/07 continue current treatment plan Reviewed microbiology and Macrobid is sensitive; will extend for few days 10/08 continue tx. 10/09 continue tx. pt reported brown urine, but collection of urine is clean and clear. 10/10 more visible, no overt psychosis or delusional content. 10/11 continue tx. may decrease ativan 0.5mg po TID, monitor return of catatonia 10/12 continue tx. 10/14 no sx of catatonia evidenced today. Continue tx 10/15 continue tx. Reason for continued inpatient stay Substantial Risk for: inability to function Time Spent With Patient Time: Total time managing care of this patient today ____ minutes.
--- NOTE | 2024-10-15 12:30 | MHC.CLN ---
F/U DIET=REGULAR. CONTINUES WITH INTAKE AT MOST MEALS 100%. NO ADDITIONAL NUTRITION INTERVENTIONS AT THIS TIME. RD TO MONITOR WEEKLY.
[2024-10-15 20:03] VITALS: BP 113/57; PULSE 82; RESP 16; TEMP 36.6; O2SAT 97
[2024-10-15 20:12] VITALS: BP 113/57; PULSE 82
[2024-10-16 07:52] VITALS: BP 120/62; PULSE 66; RESP 16; TEMP 36.7; O2SAT 95
--- NOTE | 2024-10-16 18:18 | HO.PSYCHPN ---
Subjective Subjective Date of Service: 10/16/24 Reason For Visit: Psychosis Subjective Notes: Conditional Voluntary Interim History: Pt sleeping through the night. She has been more visible on the unit. taking medications as prescribed. No SI/HI. No overt psychosis or delusions. we discussed d/c soon, which she reports she is not sure about it. when asked in what way, she states I don't know, I'll let you know. Medication Compliance: Yes Review of Systems Review of Systems good Yes Unobtainable due to mental status Mental Status Exam Mental Status Exam Narrative: Appearance: wearing hospital gown, poor hygiene, in NAD behavior: cooperative Psychomotor: no overt retardation nor agitation Speech: Spontaneous, improved and more clearly enunciating words TP: Goal oriented TC: doing well, wondering about d/c Mood: ok Affect: constricted Si: denies HI: denies VH/AH:no overt Delusions: no overt delusional Insight/judgment: very poor x 2 Memory/cog: alert, oriented x 3. Diagnostics Vital Signs (24Hr): Vital Signs - 24 hr 10/15/24 20:03 10/15/24 20:12 10/16/24 07:52 Temperature 97.8 F 98.1 F Pulse Rate 82 82 66 Respiratory Rate 16 16 Blood Pressure 113/57 L 113/57 L 120/62 Pulse Oximetry 97 95 Oxygen Delivery Method Room Air Room Air BMI result Body Mass Index 18.2 Labs 09/27/24 05:41 10/05/24 13:37 Medications Medications Current Medications Acetaminophen (Acetaminophen 325 Mg Tablet) 650 mg PO Q6H PRN PRN Reason: Headache/Pain, Scale 1-10 Al Hydroxide/Mg Hydroxide (Magnesium Hydrox/Alum Hydrox 30 Ml Oral.Susp) 30 ml PO Q6H PRN PRN Reason: Heartburn/Nausea Atorvastatin Calcium (Atorvastatin Calcium 10 Mg Tablet) 10 mg PO BEDTIME SHAQ Last Admin: 10/15/24 20:13 Dose: 10 mg Benztropine Mesylate (Benztropine Mesylate 0.5 Mg Tablet) 0.5 mg PO BEDTIME SHAQ Last Admin: 10/15/24 20:12 Dose: 0.5 mg Brexpiprazole (Brexpiprazole 2 Mg Tablet) 2 mg PO DAILY SHAQ Last Admin: 10/16/24 08:08 Dose: 2 mg Carbidopa/Levodopa (Carbidopa/Levodopa 25/100 Tablet) 1 tab PO BID@0900,1200 [facility] Last Admin: 10/16/24 11:44 Dose: 1 tab Hydroxyzine HCl (Hydroxyzine Hcl 25 Mg Tablet) 25 mg PO Q6H PRN PRN Reason: mild anxiety Lorazepam (Lorazepam 0.5 Mg Tablet) 0.5 mg PO TID [facility] Last Admin: 10/16/24 14:54 Dose: 0.5 mg Magnesium Hydroxide (Milk Of Magnesia 30 Ml Oral.Susp) 30 ml PO DAILY PRN PRN Reason: Constipation Melatonin (Melatonin 3 Mg Tablet) 6 mg PO BEDTIME [facility] Last Admin: 10/15/24 20:12 Dose: 6 mg Memantine (Memantine Hcl 5 Mg Tablet) 5 mg PO DAILY [facility] Last Admin: 10/16/24 08:08 Dose: 5 mg Metoprolol Tartrate (Metoprolol Tartrate 25 Mg Tablet) 25 mg PO BID [facility]; Protocol Last Admin: 10/16/24 08:08 Dose: 25 mg Senna/Docusate Sodium (Sennosides/Docusate Sodium Tablet) 1 tab PO BID PRN PRN Reason: Constipation Trazodone HCl (Trazodone Hcl 100 Mg Tablet) 100 mg PO BEDTIME [facility] Last Admin: 10/15/24 20:13 Dose: 100 mg Trazodone HCl (Trazodone Hcl 50 Mg Tablet) 50 mg PO BEDTIME PRN PRN Reason: Insomnia Last Admin: 09/28/24 20:42 Dose: 50 mg Allergies Allergies Allergy/AdvReac Type Severity Reaction Status Date / Time No Known Allergies Allergy Verified 09/27/24 05:26 Assessment & Plan Assessment & Plan (1) Schizoaffective disorder: Qualifiers: Schizoaffective disorder type: unspecified Qualified Code(s): F25.9 - Schizoaffective disorder, unspecified Status: Acute Code(s): F25.9 - Schizoaffective disorder, unspecified (2) UTI (urinary tract infection): Status: Acute Code(s): N39.0 - Urinary tract infection, site not specified Assessment and Plan: resolved. (3) PTSD (post-traumatic stress disorder): Status: Acute Code(s): F43.10 - Post-traumatic stress disorder, unspecified (4) Catatonia: Status: Acute Code(s): F06.1 - Catatonic disorder due to known physiological condition Assessment and Plan: resolved. Plan Readmission in the context of medication non adherence. Off medications significant delusions, disorganized behavior, noticeable concern from Roommate and visiting nurse services. patient does present as guarded and paranoid. Perseverative on discharge. Reports he will not take medications however will order same so patient has the option should they change of mind. Educated on 3 day notice and [place] Warning should they choose to perceive same, otherwise admitted on voluntary status. 09/30: encourage med adherence 10/01 Patient denies AVH. Slow moving with speech latency ; says she is all right. Not really able to explain why she ended up coming to the hospital -uti; discussed with hospitalist who will start antibiotic -considered Ativan for what seems like catatonic symptoms however staff who knows her says she is typically slow; will hold off for now 10/02 still with speech latency but less today... denies AVH; says i'm alright. She thinks maybe she's getting back to her regular self...Tried to discuss whether she stopped taking medications in the community prior to this admission, but she's not sure. -talking a little more freely today; other staff concur, so will hold off w/ ativan trial for now -consider increasing Rexulti though not wanting to worsen Parkinsonism (though risk is lower) -OT did [place] and patient improved since previous assessment 10/03 pt refused all her meds today. Patient with significant and increased speech latency and thought blocking; patient with odd, rocking movements and purposeless movements. On inquiry, regarding med refusal she says she did not take them because um...i don't think it helps... Patient continued refused despite proposal lead writer's numerous attempts to discuss; patient does not appreciate info regarding UTI and risks of not taking antibiotic; -patient does not have capacity Collateral from patient's daughter and VNA: -Patient stopped taking medications for several weeks prior to this hospitalization and was wandering in the community. Patient herself called the police but then said never mind however the police sent an ambulance for her which resulted in this a mission -Patient has history of trauma; slowed movements and speech at baseline 10/04 pt continues to refuse all medications; in meeting with pt she cannot seem to explain why. Pt continues to have odd movements and remains with significant speech latency and thought blocking and is increasingly tremulous. -pt is disorganized in speech and behavior and with odd movements in addition to Parkinsons; team agrees that she will do much better on the Geriatric unit whose milue is much less kinetic. 10/05 pt concern about UTI, did take medications today. order CMP as pt reported brown urine. BUN increased 29, with slight increase in Cr 0.83 (from 0.69). renal function stable, may be somewhat dehydrated. continue current tx. -patient does not have capacity; if patient has a healthcare proxy proposal lead writer would invoke healthcare proxy at this time 10/06 Patient doing much better on the geriatric unit, taking her medications, eating. Patient asked about her UTI and said that some of her urine was brown in the morning but then it had become clear. Asked proposal lead writer about antibiotic and accepted answer for continued treatment. No expressions of paranoid ideations -continue current medication regimen including Ativan as patient has improved -will review antibiotic 10/07 continue current treatment plan Reviewed microbiology and Macrobid is sensitive; will extend for few days 10/08 continue tx. 10/09 continue tx. pt reported brown urine, but collection of urine is clean and clear. 10/10 more visible, no overt psychosis or delusional content. 10/11 continue tx. may decrease ativan 0.5mg po TID, monitor return of catatonia 10/12 continue tx. 10/14 no sx of catatonia evidenced today. Continue tx 10/15 continue tx. 10/16 continue tx. Reason for continued inpatient stay Substantial Risk for: inability to function Time Spent With Patient Time: Total time managing care of this patient today ____ minutes.
[2024-10-16 20:43] VITALS: BP 106/58; PULSE 69; RESP 18; TEMP 36.9; O2SAT 96
[2024-10-16 20:56] VITALS: BP 106/58; PULSE 69
[2024-10-17 08:00] VITALS: BP 128/66; PULSE 67; RESP 18; TEMP 37; O2SAT 98
--- NOTE | 2024-10-17 14:42 | P.PNPSI_ITS ---
Subjective Subjective Date of Service: 10/17/24 Reason For Visit: Psychosis Subjective Notes: Conditional Voluntary Interim History: Pt slept through the night. She has been visible, poverty of content. reports feeling better but not able to articulate in what way. She reports she is here because she missed one dose of her medications. She denies SI/HI. No overt psychosis or delusional content. taking medications. Medication Compliance: Yes Mental Status Exam Mental Status Exam Narrative: Appearance: wearing hospital gown, poor hygiene, in NAD behavior: cooperative Psychomotor: no overt retardation nor agitation Speech: Spontaneous, improved and more clearly enunciating words TP: Goal oriented TC: doing well, wondering about d/c Mood: ok Affect: constricted Si: denies HI: denies VH/AH:no overt Delusions: no overt delusional Insight/judgment: very poor x 2 Memory/cog: alert, oriented x 3. Diagnostics Vital Signs (24Hr): Vital Signs - 24 hr 10/16/24 20:43 10/16/24 20:56 10/17/24 08:00 Temperature 98.4 F 98.6 F Pulse Rate 69 69 67 Respiratory Rate 18 18 Blood Pressure 106/58 L 106/58 L 128/66 Pulse Oximetry 96 98 Oxygen Delivery Method Room Air Room Air BMI result Body Mass Index 18.2 Labs 09/27/24 05:41 10/05/24 13:37 Medications Medications Current Medications Acetaminophen (Acetaminophen 325 Mg Tablet) 650 mg PO Q6H PRN PRN Reason: Headache/Pain, Scale 1-10 Al Hydroxide/Mg Hydroxide (Magnesium Hydrox/Alum Hydrox 30 Ml Oral.Susp) 30 ml PO Q6H PRN PRN Reason: Heartburn/Nausea Atorvastatin Calcium (Atorvastatin Calcium 10 Mg Tablet) 10 mg PO BEDTIME [facility] Last Admin: 10/16/24 20:57 Dose: 10 mg Benztropine Mesylate (Benztropine Mesylate 0.5 Mg Tablet) 0.5 mg PO BEDTIME [facility] Last Admin: 10/16/24 20:57 Dose: 0.5 mg Brexpiprazole (Brexpiprazole 2 Mg Tablet) 2 mg PO DAILY [facility] Last Admin: 10/17/24 08:47 Dose: 2 mg Carbidopa/Levodopa (Carbidopa/Levodopa 25/100 Tablet) 1 tab PO BID@0900,1200 [facility] Last Admin: 10/17/24 11:29 Dose: 1 tab Hydroxyzine HCl (Hydroxyzine Hcl 25 Mg Tablet) 25 mg PO Q6H PRN PRN Reason: mild anxiety Lorazepam (Lorazepam 0.5 Mg Tablet) 0.5 mg PO TID [facility] Last Admin: 10/17/24 08:47 Dose: 0.5 mg Magnesium Hydroxide (Milk Of Magnesia 30 Ml Oral.Susp) 30 ml PO DAILY PRN PRN Reason: Constipation Melatonin (Melatonin 3 Mg Tablet) 6 mg PO BEDTIME [facility] Last Admin: 10/16/24 20:57 Dose: 6 mg Memantine (Memantine Hcl 5 Mg Tablet) 5 mg PO DAILY [facility] Last Admin: 10/17/24 08:48 Dose: 5 mg Metoprolol Tartrate (Metoprolol Tartrate 25 Mg Tablet) 25 mg PO BID [facility]; Protocol Last Admin: 10/17/24 08:47 Dose: 25 mg Senna/Docusate Sodium (Sennosides/Docusate Sodium Tablet) 1 tab PO BID PRN PRN Reason: Constipation Trazodone HCl (Trazodone Hcl 100 Mg Tablet) 100 mg PO BEDTIME [facility] Last Admin: 10/16/24 20:57 Dose: 100 mg Trazodone HCl (Trazodone Hcl 50 Mg Tablet) 50 mg PO BEDTIME PRN PRN Reason: Insomnia Last Admin: 09/28/24 20:42 Dose: 50 mg Allergies Allergies Allergy/AdvReac Type Severity Reaction Status Date / Time No Known Allergies Allergy Verified 09/27/24 05:26 Assessment & Plan Assessment & Plan (1) Schizoaffective disorder: Qualifiers: Schizoaffective disorder type: unspecified Qualified Code(s): F25.9 - Schizoaffective disorder, unspecified Status: Acute Code(s): F25.9 - Schizoaffective disorder, unspecified (2) UTI (urinary tract infection): Status: Acute Code(s): N39.0 - Urinary tract infection, site not specified Assessment and Plan: resolved. (3) PTSD (post-traumatic stress disorder): Status: Acute Code(s): F43.10 - Post-traumatic stress disorder, unspecified (4) Catatonia: Status: Acute Code(s): F06.1 - Catatonic disorder due to known physiological condition Assessment and Plan: resolved. Plan Readmission in the context of medication non adherence. Off medications significant delusions, disorganized behavior, noticeable concern from Roommate and visiting nurse services. patient does present as guarded and paranoid. Perseverative on discharge. Reports he will not take medications however will order same so patient has the option should they change of mind. Educated on 3 day notice and Aguilera Warning should they choose to perceive same, otherwise admitted on voluntary status. 09/30: encourage med adherence 10/01 Patient denies AVH. Slow moving with speech latency ; says she is all right. Not really able to explain why she ended up coming to the hospital -uti; discussed with hospitalist who will start antibiotic -considered Ativan for what seems like catatonic symptoms however staff who knows her says she is typically slow; will hold off for now 10/02 still with speech latency but less today... denies AVH; says i'm alright. She thinks maybe she's getting back to her regular self...Tried to discuss whether she stopped taking medications in the community prior to this admission, but she's not sure. -talking a little more freely today; other staff concur, so will hold off w/ ativan trial for now -consider increasing Rexulti though not wanting to worsen Parkinsonism (though risk is lower) -OT did [place] and patient improved since previous assessment 10/03 pt refused all her meds today. Patient with significant and increased speech latency and thought blocking; patient with odd, rocking movements and purposeless movements. On inquiry, regarding med refusal she says she did not take them because um...i don't think it helps... Patient continued refused despite technical document writer's numerous attempts to discuss; patient does not appreciate info regarding UTI and risks of not taking antibiotic; -patient does not have capacity Collateral from patient's daughter and VNA: -Patient stopped taking medications for several weeks prior to this hospitalization and was wandering in the community. Patient herself called the police but then said never mind however the police sent an ambulance for her which resulted in this a mission -Patient has history of trauma; slowed movements and speech at baseline 10/04 pt continues to refuse all medications; in meeting with pt she cannot seem to explain why. Pt continues to have odd movements and remains with significant speech latency and thought blocking and is increasingly tremulous. -pt is disorganized in speech and behavior and with odd movements in addition to Parkinsons; team agrees that she will do much better on the Geriatric unit whose milue is much less kinetic. 10/05 pt concern about UTI, did take medications today. order CMP as pt reported brown urine. BUN increased 29, with slight increase in Cr 0.83 (from 0.69). renal function stable, may be somewhat dehydrated. continue current tx. -patient does not have capacity; if patient has a healthcare proxy technical document writer would invoke healthcare proxy at this time 10/06 Patient doing much better on the geriatric unit, taking her medications, eating. Patient asked about her UTI and said that some of her urine was brown in the morning but then it had become clear. Asked technical document writer about antibiotic and accepted answer for continued treatment. No expressions of paranoid ideations -continue current medication regimen including Ativan as patient has improved -will review antibiotic 10/07 continue current treatment plan Reviewed microbiology and Macrobid is sensitive; will extend for few days 10/08 continue tx. 10/09 continue tx. pt reported brown urine, but collection of urine is clean and clear. 10/10 more visible, no overt psychosis or delusional content. 10/11 continue tx. may decrease ativan 0.5mg po TID, monitor return of catatonia 10/12 continue tx. 10/14 no sx of catatonia evidenced today. Continue tx 10/15 continue tx. 10/16 continue tx. 10/17 continue tx. plan for dc end of this week or next. Reason for continued inpatient stay Substantial Risk for: inability to function Time Spent With Patient Time: Total time managing care of this patient today ____ minutes.
[2024-10-17 20:00] VITALS: BP 102/53; PULSE 69; RESP 18; TEMP 36.8; O2SAT 96
--- NOTE | 2024-10-17 22:08 | PC.NURSE ---
PtS BP 102/53, HELD Metoprolol 25 mg.
[2024-10-18 08:30] VITALS: BMI 18.8
[2024-10-18 08:42] VITALS: BP 101/57; PULSE 69; RESP 14; TEMP 36.9; O2SAT 94
--- NOTE | 2024-10-18 19:15 | P.PNPSI_ITS ---
Subjective Subjective Date of Service: 10/18/24 Reason For Visit: Psychosis Interim History: Pt slept through the night. She has been visible, poverty of content. reports feeling better but not able to articulate in what way. She reports she is here because she missed one dose of her medications. She denies SI/HI. No overt psychosis or delusional content. taking medications. Review of Systems Review of Systems good Yes Unobtainable due to mental status Mental Status Exam Mental Status Exam Narrative: Appearance: wearing hospital gown, poor hygiene, in NAD behavior: cooperative Psychomotor: no overt retardation nor agitation Speech: Spontaneous, improved and more clearly enunciating words TP: Goal oriented TC: doing well, wondering about d/c Mood: ok Affect: constricted Si: denies HI: denies VH/AH:no overt Delusions: no overt delusional Insight/judgment: very poor x 2 Memory/cog: alert, oriented x 3. Diagnostics Vital Signs (24Hr): Vital Signs - 24 hr 10/17/24 20:00 10/18/24 08:42 Temperature 98.2 F 98.4 F Pulse Rate 69 69 Respiratory Rate 18 14 Blood Pressure 102/53 L 101/57 L Pulse Oximetry 96 94 Oxygen Delivery Method Room Air Room Air BMI result Body Mass Index 18.8 Labs 09/27/24 05:41 10/05/24 13:37 Medications Medications Current Medications Acetaminophen (Acetaminophen 325 Mg Tablet) 650 mg PO Q6H PRN PRN Reason: Headache/Pain, Scale 1-10 Al Hydroxide/Mg Hydroxide (Magnesium Hydrox/Alum Hydrox 30 Ml Oral.Susp) 30 ml PO Q6H PRN PRN Reason: Heartburn/Nausea Atorvastatin Calcium (Atorvastatin Calcium 10 Mg Tablet) 10 mg PO BEDTIME [facility] Last Admin: 10/17/24 20:22 Dose: 10 mg Benztropine Mesylate (Benztropine Mesylate 0.5 Mg Tablet) 0.5 mg PO BEDTIME [facility] Last Admin: 10/17/24 20:22 Dose: 0.5 mg Brexpiprazole (Brexpiprazole 2 Mg Tablet) 2 mg PO DAILY [facility] Last Admin: 10/18/24 08:44 Dose: 2 mg Carbidopa/Levodopa (Carbidopa/Levodopa 25/100 Tablet) 1 tab PO BID@0900,1200 [facility] Last Admin: 07/24/25 13:50 Dose: 1 tab Hydroxyzine HCl (Hydroxyzine Hcl 25 Mg Tablet) 25 mg PO Q6H PRN PRN Reason: mild anxiety Lorazepam (Lorazepam 0.5 Mg Tablet) 0.5 mg PO TID [facility] Last Admin: 10/18/24 13:50 Dose: 0.5 mg Magnesium Hydroxide (Milk Of Magnesia 30 Ml Oral.Susp) 30 ml PO DAILY PRN PRN Reason: Constipation Melatonin (Melatonin 3 Mg Tablet) 6 mg PO BEDTIME [facility] Last Admin: 10/17/24 20:23 Dose: 6 mg Memantine (Memantine Hcl 5 Mg Tablet) 5 mg PO DAILY [facility] Last Admin: 10/18/24 08:44 Dose: 5 mg Metoprolol Tartrate (Metoprolol Tartrate 25 Mg Tablet) 25 mg PO BID [facility]; Protocol Last Admin: 10/18/24 08:44 Dose: 25 mg Senna/Docusate Sodium (Sennosides/Docusate Sodium Tablet) 1 tab PO BID PRN PRN Reason: Constipation Trazodone HCl (Trazodone Hcl 100 Mg Tablet) 100 mg PO BEDTIME [facility] Last Admin: 10/17/24 20:22 Dose: 100 mg Trazodone HCl (Trazodone Hcl 50 Mg Tablet) 50 mg PO BEDTIME PRN PRN Reason: Insomnia Last Admin: 09/28/24 20:42 Dose: 50 mg Allergies Allergies Allergy/AdvReac Type Severity Reaction Status Date / Time No Known Allergies Allergy Verified 09/27/24 05:26 Assessment & Plan Assessment & Plan (1) Schizoaffective disorder: Qualifiers: Schizoaffective disorder type: unspecified Qualified Code(s): F25.9 - Schizoaffective disorder, unspecified Status: Acute Code(s): F25.9 - Schizoaffective disorder, unspecified (2) UTI (urinary tract infection): Status: Acute Code(s): N39.0 - Urinary tract infection, site not specified Assessment and Plan: resolved. (3) PTSD (post-traumatic stress disorder): Status: Acute Code(s): F43.10 - Post-traumatic stress disorder, unspecified (4) Catatonia: Status: Acute Code(s): F06.1 - Catatonic disorder due to known physiological condition Assessment and Plan: resolved. Plan Readmission in the context of medication non adherence. Off medications significant delusions, disorganized behavior, noticeable concern from Roommate and visiting nurse services. patient does present as guarded and paranoid. Perseverative on discharge. Reports he will not take medications however will order same so patient has the option should they change of mind. Educated on 3 day notice and [place] Warning should they choose to perceive same, otherwise admitted on voluntary status. 09/30: encourage med adherence 10/01 Patient denies AVH. Slow moving with speech latency ; says she is all right. Not really able to explain why she ended up coming to the hospital -uti; discussed with hospitalist who will start antibiotic -considered Ativan for what seems like catatonic symptoms however staff who knows her says she is typically slow; will hold off for now 10/02 still with speech latency but less today... denies AVH; says i'm alright. She thinks maybe she's getting back to her regular self...Tried to discuss whether she stopped taking medications in the community prior to this admission, but she's not sure. -talking a little more freely today; other staff concur, so will hold off w/ ativan trial for now -consider increasing Rexulti though not wanting to worsen Parkinsonism (though risk is lower) -OT did [place] and patient improved since previous assessment 10/03 pt refused all her meds today. Patient with significant and increased speech latency and thought blocking; patient with odd, rocking movements and purposeless movements. On inquiry, regarding med refusal she says she did not take them because um...i don't think it helps... Patient continued refused despite typewriter operator automatic's numerous attempts to discuss; patient does not appreciate info regarding UTI and risks of not taking antibiotic; -patient does not have capacity Collateral from patient's daughter and VNA: -Patient stopped taking medications for several weeks prior to this hospitalization and was wandering in the community. Patient herself called the police but then said never mind however the police sent an ambulance for her which resulted in this a mission -Patient has history of trauma; slowed movements and speech at baseline 10/04 pt continues to refuse all medications; in meeting with pt she cannot seem to explain why. Pt continues to have odd movements and remains with significant speech latency and thought blocking and is increasingly tremulous. -pt is disorganized in speech and behavior and with odd movements in addition to Parkinsons; team agrees that she will do much better on the Geriatric unit whose milue is much less kinetic. 10/05 pt concern about UTI, did take medications today. order CMP as pt reported brown urine. BUN increased 29, with slight increase in Cr 0.83 (from 0.69). renal function stable, may be somewhat dehydrated. continue current tx. -patient does not have capacity; if patient has a healthcare proxy typewriter operator automatic would invoke healthcare proxy at this time 10/06 Patient doing much better on the geriatric unit, taking her medications, eating. Patient asked about her UTI and said that some of her urine was brown in the morning but then it had become clear. Asked typewriter operator automatic about antibiotic and accepted answer for continued treatment. No expressions of paranoid ideations -continue current medication regimen including Ativan as patient has improved -will review antibiotic 10/07 continue current treatment plan Reviewed microbiology and Macrobid is sensitive; will extend for few days 10/08 continue tx. 10/09 continue tx. pt reported brown urine, but collection of urine is clean and clear. 10/10 more visible, no overt psychosis or delusional content. 10/11 continue tx. may decrease ativan 0.5mg po TID, monitor return of catatonia 10/12 continue tx. 10/14 no sx of catatonia evidenced today. Continue tx 10/15 continue tx. 10/16 continue tx. 10/17 continue tx. plan for dc end of this week or next. 10/18 continue tx. Reason for continued inpatient stay Substantial Risk for: inability to function Time Spent With Patient Time: Total time managing care of this patient today ____ minutes.
[2024-10-18 20:35] VITALS: BP 103/58; PULSE 68; RESP 16; TEMP 36.8; O2SAT 96
[2024-10-18 20:36] VITALS: BP 103/58; PULSE 68
[2024-10-19 08:23] VITALS: BP 97/52; PULSE 60; RESP 16; TEMP 37; O2SAT 96
[2024-10-19 08:34] VITALS: BP 122/79; PULSE 68
--- NOTE | 2024-10-19 15:50 | P.PNPSI_ITS ---
Subjective Subjective Date of Service: 10/19/24 Reason For Visit: Psychosis Subjective Notes: Conditional Voluntary Interim History: Pt slept through the night.No changes. She has been visible, poverty of content. reports feeling better but not able to articulate in what way. She reports she is here because she missed one dose of her medications. She denies SI/HI. No overt psychosis or delusional content. taking medications. Review of Systems Review of Systems good Yes Unobtainable due to mental status Mental Status Exam Mental Status Exam Narrative: Appearance: wearing hospital gown, poor hygiene, in NAD behavior: cooperative Psychomotor: no overt retardation nor agitation Speech: Spontaneous, improved and more clearly enunciating words TP: Goal oriented TC: doing well, wondering about d/c Mood: ok Affect: constricted Si: denies HI: denies VH/AH:no overt Delusions: no overt delusional Insight/judgment: very poor x 2 Memory/cog: alert, oriented x 3. Diagnostics Vital Signs (24Hr): Vital Signs - 24 hr 10/18/24 20:35 10/18/24 20:36 10/19/24 08:23 Temperature 98.2 F 98.6 F Pulse Rate 68 68 60 Respiratory Rate 16 16 Blood Pressure 103/58 L 103/58 L 97/52 L Pulse Oximetry 96 96 Oxygen Delivery Method Room Air Room Air 10/19/24 08:34 Temperature Pulse Rate 68 Respiratory Rate Blood Pressure 122/79 Pulse Oximetry Oxygen Delivery Method BMI result Body Mass Index 18.8 Labs 09/27/24 05:41 10/05/24 13:37 Medications Medications Current Medications Acetaminophen (Acetaminophen 325 Mg Tablet) 650 mg PO Q6H PRN PRN Reason: Headache/Pain, Scale 1-10 Al Hydroxide/Mg Hydroxide (Magnesium Hydrox/Alum Hydrox 30 Ml Oral.Susp) 30 ml PO Q6H PRN PRN Reason: Heartburn/Nausea Atorvastatin Calcium (Atorvastatin Calcium 10 Mg Tablet) 10 mg PO BEDTIME [facility] Last Admin: 10/18/24 20:37 Dose: 10 mg Benztropine Mesylate (Benztropine Mesylate 0.5 Mg Tablet) 0.5 mg PO BEDTIME [facility] Last Admin: 10/18/24 20:37 Dose: 0.5 mg Brexpiprazole (Brexpiprazole 2 Mg Tablet) 2 mg PO DAILY [facility] Last Admin: 10/19/24 08:25 Dose: 2 mg Carbidopa/Levodopa (Carbidopa/Levodopa 25/100 Tablet) 1 tab PO BID@0900,1200 [facility] Last Admin: 10/19/24 11:28 Dose: 1 tab Hydroxyzine HCl (Hydroxyzine Hcl 25 Mg Tablet) 25 mg PO Q6H PRN PRN Reason: mild anxiety Lorazepam (Lorazepam 0.5 Mg Tablet) 0.5 mg PO TID [facility] Last Admin: 10/19/24 14:36 Dose: 0.5 mg Magnesium Hydroxide (Milk Of Magnesia 30 Ml Oral.Susp) 30 ml PO DAILY PRN PRN Reason: Constipation Melatonin (Melatonin 3 Mg Tablet) 6 mg PO BEDTIME [facility] Last Admin: 10/18/24 20:37 Dose: 6 mg Memantine (Memantine Hcl 5 Mg Tablet) 5 mg PO DAILY [facility] Last Admin: 10/19/24 08:25 Dose: 5 mg Metoprolol Tartrate (Metoprolol Tartrate 25 Mg Tablet) 25 mg PO BID [facility]; Protocol Last Admin: 10/19/24 08:34 Dose: 25 mg Senna/Docusate Sodium (Sennosides/Docusate Sodium Tablet) 1 tab PO BID PRN PRN Reason: Constipation Trazodone HCl (Trazodone Hcl 100 Mg Tablet) 100 mg PO BEDTIME [facility] Last Admin: 10/18/24 20:37 Dose: 100 mg Trazodone HCl (Trazodone Hcl 50 Mg Tablet) 50 mg PO BEDTIME PRN PRN Reason: Insomnia Last Admin: 09/28/24 20:42 Dose: 50 mg Allergies Allergies Allergy/AdvReac Type Severity Reaction Status Date / Time No Known Allergies Allergy Verified 09/27/24 05:26 Assessment & Plan Assessment & Plan (1) Schizoaffective disorder: Qualifiers: Schizoaffective disorder type: unspecified Qualified Code(s): F25.9 - Schizoaffective disorder, unspecified Status: Acute Code(s): F25.9 - Schizoaffective disorder, unspecified (2) UTI (urinary tract infection): Status: Acute Code(s): N39.0 - Urinary tract infection, site not specified Assessment and Plan: resolved. (3) PTSD (post-traumatic stress disorder): Status: Acute Code(s): F43.10 - Post-traumatic stress disorder, unspecified (4) Catatonia: Status: Acute Code(s): F06.1 - Catatonic disorder due to known physiological condition Assessment and Plan: resolved. Plan Readmission in the context of medication non adherence. Off medications significant delusions, disorganized behavior, noticeable concern from Roommate and visiting nurse services. patient does present as guarded and paranoid. Perseverative on discharge. Reports he will not take medications however will order same so patient has the option should they change of mind. Educated on 3 day notice and Aguilera Warning should they choose to perceive same, otherwise admitted on voluntary status. 09/30: encourage med adherence 10/01 Patient denies AVH. Slow moving with speech latency ; says she is all right. Not really able to explain why she ended up coming to the hospital -uti; discussed with hospitalist who will start antibiotic -considered Ativan for what seems like catatonic symptoms however staff who knows her says she is typically slow; will hold off for now 10/02 still with speech latency but less today... denies AVH; says i'm alright. She thinks maybe she's getting back to her regular self...Tried to discuss whether she stopped taking medications in the community prior to this admission, but she's not sure. -talking a little more freely today; other staff concur, so will hold off w/ ativan trial for now -consider increasing Rexulti though not wanting to worsen Parkinsonism (though risk is lower) -OT did [place] and patient improved since previous assessment 10/03 pt refused all her meds today. Patient with significant and increased speech latency and thought blocking; patient with odd, rocking movements and purposeless movements. On inquiry, regarding med refusal she says she did not take them because um...i don't think it helps... Patient continued refused despite communications writer's numerous attempts to discuss; patient does not appreciate info regarding UTI and risks of not taking antibiotic; -patient does not have capacity Collateral from patient's daughter and VNA: -Patient stopped taking medications for several weeks prior to this hospitalization and was wandering in the community. Patient herself called the police but then said never mind however the police sent an ambulance for her which resulted in this a mission -Patient has history of trauma; slowed movements and speech at baseline 10/04 pt continues to refuse all medications; in meeting with pt she cannot seem to explain why. Pt continues to have odd movements and remains with significant speech latency and thought blocking and is increasingly tremulous. -pt is disorganized in speech and behavior and with odd movements in addition to Parkinsons; team agrees that she will do much better on the Geriatric unit whose milue is much less kinetic. 10/05 pt concern about UTI, did take medications today. order CMP as pt reported brown urine. BUN increased 29, with slight increase in Cr 0.83 (from 0.69). renal function stable, may be somewhat dehydrated. continue current tx. -patient does not have capacity; if patient has a healthcare proxy communications writer would invoke healthcare proxy at this time 10/06 Patient doing much better on the geriatric unit, taking her medications, eating. Patient asked about her UTI and said that some of her urine was brown in the morning but then it had become clear. Asked communications writer about antibiotic and accepted answer for continued treatment. No expressions of paranoid ideations -continue current medication regimen including Ativan as patient has improved -will review antibiotic 10/07 continue current treatment plan Reviewed microbiology and Macrobid is sensitive; will extend for few days 10/08 continue tx. 10/09 continue tx. pt reported brown urine, but collection of urine is clean and clear. 10/10 more visible, no overt psychosis or delusional content. 10/11 continue tx. may decrease ativan 0.5mg po TID, monitor return of catatonia 10/12 continue tx. 10/14 no sx of catatonia evidenced today. Continue tx 10/15 continue tx. 10/16 continue tx. 10/17 continue tx. plan for dc end of this week or next. 10/19 plan to dc 10/22 Reason for continued inpatient stay Substantial Risk for: inability to function Time Spent With Patient Time: Total time managing care of this patient today ____ minutes.
[2024-10-19 19:37] VITALS: BP 99/55; PULSE 85; RESP 16; TEMP 37.1; O2SAT 95
[2024-10-19 19:38] VITALS: BP 99/55; PULSE 85
[2024-10-20 08:15] VITALS: BP 130/83; PULSE 71; RESP 16; TEMP 36.3; O2SAT 96
--- NOTE | 2024-10-20 16:46 | P.PNPSI_ITS ---
Subjective Subjective Date of Service: 10/20/24 Reason For Visit: Psychosis Interim History: Patient reports she is feeling alright today. She says she participates in crafts on the unit. Denies SI/HI. No overt psychosis reported. Pt slept through the night. No changes. Visible for meals. Feels improved but doesn't elaborate. Adherent to medications. Review of Systems Review of Systems good Yes Unobtainable due to mental status Mental Status Exam Mental Status Exam Narrative: Appearance: wearing hospital gown, poor hygiene, in NAD behavior: cooperative Psychomotor: no overt retardation nor agitation Speech: Spontaneous, improved and more clearly enunciating words TP: Goal oriented TC: doing well, wondering about d/c Mood: ok Affect: constricted Si: denies HI: denies VH/AH:no overt Delusions: no overt delusional Insight/judgment: very poor x 2 Memory/cog: alert, oriented x 3. Patient Appearance: Appropriate Patient Orientation: Person, Place and Situation Level of Consciousness: Alert Patient Behavior: Cooperative Mood Description: Calm Affect Description: Calm Patient Cognition Impaired: No Ability to Follow Directions: Good Speech Pattern: Impoverished Memory Description: Episodic Impaired Diagnostics Vital Signs (24Hr): Vital Signs - 24 hr 10/19/24 19:37 10/19/24 19:38 10/20/24 08:15 Temperature 98.8 F 97.3 F Pulse Rate 85 85 71 Respiratory Rate 16 16 Blood Pressure 99/55 L 99/55 L 130/83 Pulse Oximetry 95 96 Oxygen Delivery Method Room Air Room Air BMI result Body Mass Index 18.8 Labs 09/27/24 05:41 10/05/24 13:37 Medications Medications Current Medications Acetaminophen (Acetaminophen 325 Mg Tablet) 650 mg PO Q6H PRN PRN Reason: Headache/Pain, Scale 1-10 Al Hydroxide/Mg Hydroxide (Magnesium Hydrox/Alum Hydrox 30 Ml Oral.Susp) 30 ml PO Q6H PRN PRN Reason: Heartburn/Nausea Atorvastatin Calcium (Atorvastatin Calcium 10 Mg Tablet) 10 mg PO BEDTIME [facility] Last Admin: 10/19/24 19:39 Dose: 10 mg Benztropine Mesylate (Benztropine Mesylate 0.5 Mg Tablet) 0.5 mg PO BEDTIME [facility] Last Admin: 10/19/24 19:39 Dose: 0.5 mg Brexpiprazole (Brexpiprazole 2 Mg Tablet) 2 mg PO DAILY [facility] Last Admin: 10/20/24 08:21 Dose: 2 mg Carbidopa/Levodopa (Carbidopa/Levodopa 25/100 Tablet) 1 tab PO BID@0900,1200 [facility] Last Admin: 10/20/24 12:35 Dose: 1 tab Hydroxyzine HCl (Hydroxyzine Hcl 25 Mg Tablet) 25 mg PO Q6H PRN PRN Reason: mild anxiety Lorazepam (Lorazepam 0.5 Mg Tablet) 0.5 mg PO TID [facility] Last Admin: 10/20/24 16:39 Dose: 0.5 mg Magnesium Hydroxide (Milk Of Magnesia 30 Ml Oral.Susp) 30 ml PO DAILY PRN PRN Reason: Constipation Melatonin (Melatonin 3 Mg Tablet) 6 mg PO BEDTIME [facility] Last Admin: 10/19/24 19:39 Dose: 6 mg Memantine (Memantine Hcl 5 Mg Tablet) 5 mg PO DAILY [facility] Last Admin: 10/20/24 08:21 Dose: 5 mg Metoprolol Tartrate (Metoprolol Tartrate 25 Mg Tablet) 25 mg PO BID [facility]; Protocol Last Admin: 10/20/24 08:21 Dose: 25 mg Senna/Docusate Sodium (Sennosides/Docusate Sodium Tablet) 1 tab PO BID PRN PRN Reason: Constipation Trazodone HCl (Trazodone Hcl 100 Mg Tablet) 100 mg PO BEDTIME [facility] Last Admin: 10/19/24 19:39 Dose: 100 mg Trazodone HCl (Trazodone Hcl 50 Mg Tablet) 50 mg PO BEDTIME PRN PRN Reason: Insomnia Last Admin: 09/28/24 20:42 Dose: 50 mg Allergies Allergies Allergy/AdvReac Type Severity Reaction Status Date / Time No Known Allergies Allergy Verified 09/27/24 05:26 Assessment & Plan Assessment & Plan (1) Schizoaffective disorder: Qualifiers: Schizoaffective disorder type: unspecified Qualified Code(s): F25.9 - Schizoaffective disorder, unspecified Status: Acute Code(s): F25.9 - Schizoaffective disorder, unspecified (2) UTI (urinary tract infection): Status: Acute Code(s): N39.0 - Urinary tract infection, site not specified Assessment and Plan: resolved. (3) PTSD (post-traumatic stress disorder): Status: Acute Code(s): F43.10 - Post-traumatic stress disorder, unspecified (4) Catatonia: Status: Acute Code(s): F06.1 - Catatonic disorder due to known physiological condition Assessment and Plan: resolved. Plan Readmission in the context of medication non adherence. Off medications significant delusions, disorganized behavior, noticeable concern from Roommate and visiting nurse services. patient does present as guarded and paranoid. Perseverative on discharge. Reports he will not take medications however will order same so patient has the option should they change of mind. Educated on 3 day notice and Aguil[place] Warning should they choose to perceive same, otherwise admitted on voluntary status. 09/30: encourage med adherence 10/01 Patient denies AVH. Slow moving with speech latency ; says she is all right. Not really able to explain why she ended up coming to the hospital -uti; discussed with hospitalist who will start antibiotic -considered Ativan for what seems like catatonic symptoms however staff who knows her says she is typically slow; will hold off for now 10/02 still with speech latency but less today... denies AVH; says i'm alright. She thinks maybe she's getting back to her regular self...Tried to discuss whether she stopped taking medications in the community prior to this admission, but she's not sure. -talking a little more freely today; other staff concur, so will hold off w/ ativan trial for now -consider increasing Rexulti though not wanting to worsen Parkinsonism (though risk is lower) -OT did [place] and patient improved since previous assessment 10/03 pt refused all her meds today. Patient with significant and increased speech latency and thought blocking; patient with odd, rocking movements and purposeless movements. On inquiry, regarding med refusal she says she did not take them because um...i don't think it helps... Patient continued refused despite advertising copywriter's numerous attempts to discuss; patient does not appreciate info regarding UTI and risks of not taking antibiotic; -patient does not have capacity Collateral from patient's daughter and VNA: -Patient stopped taking medications for several weeks prior to this hospitalization and was wandering in the community. Patient herself called the police but then said never mind however the police sent an ambulance for her which resulted in this a mission -Patient has history of trauma; slowed movements and speech at baseline 10/04 pt continues to refuse all medications; in meeting with pt she cannot seem to explain why. Pt continues to have odd movements and remains with significant speech latency and thought blocking and is increasingly tremulous. -pt is disorganized in speech and behavior and with odd movements in addition to Parkinsons; team agrees that she will do much better on the Geriatric unit whose milue is much less kinetic. 10/05 pt concern about UTI, did take medications today. order CMP as pt reported brown urine. BUN increased 29, with slight increase in Cr 0.83 (from 0.69). renal function stable, may be somewhat dehydrated. continue current tx. -patient does not have capacity; if patient has a healthcare proxy advertising copywriter would invoke healthcare proxy at this time 10/06 Patient doing much better on the geriatric unit, taking her medications, eating. Patient asked about her UTI and said that some of her urine was brown in the morning but then it had become clear. Asked advertising copywriter about antibiotic and accepted answer for continued treatment. No expressions of paranoid ideations -continue current medication regimen including Ativan as patient has improved -will review antibiotic 10/07 continue current treatment plan Reviewed microbiology and Macrobid is sensitive; will extend for few days 10/08 continue tx. 10/09 continue tx. pt reported brown urine, but collection of urine is clean and clear. 10/10 more visible, no overt psychosis or delusional content. 10/11 continue tx. may decrease ativan 0.5mg po TID, monitor return of catatonia 10/12 continue tx. 10/14 no sx of catatonia evidenced today. Continue tx 10/15 continue tx. 10/16 continue tx. 10/17 continue tx. plan for dc end of this week or next. 10/19 plan to dc 10/22 10/20: Continue current management and treatment plan. Reason for continued inpatient stay Substantial Risk for: inability to function and rapid decompensation Time Spent With Patient Time: Total time managing care of this patient today ____ minutes.
[2024-10-20 20:11] VITALS: BP 115/60; PULSE 85; RESP 18; TEMP 36.5; O2SAT 95
[2024-10-20 20:13] VITALS: BP 115/60; PULSE 85
[2024-10-21 08:27] VITALS: BP 114/56; PULSE 66; RESP 16; TEMP 36.8; O2SAT 96
--- NOTE | 2024-10-21 16:14 | P.PNPSI_ITS ---
Subjective Subjective Date of Service: 10/21/24 Reason For Visit: Psychosis Interim History: Patient denies any complaints. Remains with flat affect. Latency. Isolates in room. Eats in common area then goes to her room. Hasn't showered. Sleep is good. Denies SI/HI. No overt psychosis reported. Pt slept through the night. Feels improved but doesn't elaborate. Adherent to medications. Review of Systems Review of Systems good Yes Unobtainable due to mental status Mental Status Exam Mental Status Exam Narrative: Appearance: wearing hospital gown, poor hygiene, in NAD behavior: cooperative Psychomotor: no overt retardation nor agitation Speech: Spontaneous, improved and more clearly enunciating words TP: Goal oriented TC: doing well, wondering about d/c Mood: ok Affect: constricted Si: denies HI: denies VH/AH:no overt Delusions: no overt delusional Insight/judgment: very poor x 2 Memory/cog: alert, oriented x 3. Patient Appearance: Appropriate Patient Orientation: Person, Place and Situation Level of Consciousness: Alert Patient Behavior: Cooperative Mood Description: Calm Affect Description: Calm Patient Cognition Impaired: No Ability to Follow Directions: Good Speech Pattern: Impoverished Memory Description: Episodic Impaired Diagnostics Vital Signs (24Hr): Vital Signs - 24 hr 10/20/24 20:11 10/20/24 20:13 10/21/24 08:27 Temperature 97.7 F 98.2 F Pulse Rate 85 85 66 Respiratory Rate 18 16 Blood Pressure 115/60 115/60 114/56 L Pulse Oximetry 95 96 Oxygen Delivery Method Room Air Room Air BMI result Body Mass Index 18.8 Labs 09/27/24 05:41 10/05/24 13:37 Medications Medications Current Medications Acetaminophen (Acetaminophen 325 Mg Tablet) 650 mg PO Q6H PRN PRN Reason: Headache/Pain, Scale 1-10 Al Hydroxide/Mg Hydroxide (Magnesium Hydrox/Alum Hydrox 30 Ml Oral.Susp) 30 ml PO Q6H PRN PRN Reason: Heartburn/Nausea Atorvastatin Calcium (Atorvastatin Calcium 10 Mg Tablet) 10 mg PO BEDTIME [facility] Last Admin: 10/20/24 20:13 Dose: 10 mg Benztropine Mesylate (Benztropine Mesylate 0.5 Mg Tablet) 0.5 mg PO BEDTIME [facility] Last Admin: 10/20/24 20:13 Dose: 0.5 mg Brexpiprazole (Brexpiprazole 2 Mg Tablet) 2 mg PO DAILY [facility] Last Admin: 10/21/24 08:37 Dose: 2 mg Carbidopa/Levodopa (Carbidopa/Levodopa 25/100 Tablet) 1 tab PO BID@0900,1200 [facility] Last Admin: 10/21/24 12:27 Dose: 1 tab Hydroxyzine HCl (Hydroxyzine Hcl 25 Mg Tablet) 25 mg PO Q6H PRN PRN Reason: mild anxiety Lorazepam (Lorazepam 0.5 Mg Tablet) 0.5 mg PO TID [facility] Last Admin: 10/21/24 15:23 Dose: 0.5 mg Magnesium Hydroxide (Milk Of Magnesia 30 Ml Oral.Susp) 30 ml PO DAILY PRN PRN Reason: Constipation Melatonin (Melatonin 3 Mg Tablet) 6 mg PO BEDTIME [facility] Last Admin: 10/20/24 20:13 Dose: 6 mg Memantine (Memantine Hcl 5 Mg Tablet) 5 mg PO DAILY [facility] Last Admin: 10/21/24 08:37 Dose: 5 mg Metoprolol Tartrate (Metoprolol Tartrate 25 Mg Tablet) 25 mg PO BID [facility]; Protocol Last Admin: 10/21/24 08:37 Dose: 25 mg Senna/Docusate Sodium (Sennosides/Docusate Sodium Tablet) 1 tab PO BID PRN PRN Reason: Constipation Trazodone HCl (Trazodone Hcl 100 Mg Tablet) 100 mg PO BEDTIME [facility] Last Admin: 10/20/24 20:13 Dose: 100 mg Trazodone HCl (Trazodone Hcl 50 Mg Tablet) 50 mg PO BEDTIME PRN PRN Reason: Insomnia Last Admin: 09/28/24 20:42 Dose: 50 mg Allergies Allergies Allergy/AdvReac Type Severity Reaction Status Date / Time No Known Allergies Allergy Verified 09/27/24 05:26 Assessment & Plan Assessment & Plan (1) Schizoaffective disorder: Qualifiers: Schizoaffective disorder type: unspecified Qualified Code(s): F25.9 - Schizoaffective disorder, unspecified Status: Acute Code(s): F25.9 - Schizoaffective disorder, unspecified (2) UTI (urinary tract infection): Status: Acute Code(s): N39.0 - Urinary tract infection, site not specified Assessment and Plan: resolved. (3) PTSD (post-traumatic stress disorder): Status: Acute Code(s): F43.10 - Post-traumatic stress disorder, unspecified (4) Catatonia: Status: Acute Code(s): F06.1 - Catatonic disorder due to known physiological condition Assessment and Plan: resolved. Plan Readmission in the context of medication non adherence. Off medications significant delusions, disorganized behavior, noticeable concern from Roommate and visiting nurse services. patient does present as guarded and paranoid. Perseverative on discharge. Reports he will not take medications however will order same so patient has the option should they change of mind. Educated on 3 day notice and Aguilera Warning should they choose to perceive same, otherwise admitted on voluntary status. 09/30: encourage med adherence 10/01 Patient denies AVH. Slow moving with speech latency ; says she is all right. Not really able to explain why she ended up coming to the hospital -uti; discussed with hospitalist who will start antibiotic -considered Ativan for what seems like catatonic symptoms however staff who knows her says she is typically slow; will hold off for now 10/02 still with speech latency but less today... denies AVH; says i'm alright. She thinks maybe she's getting back to her regular self...Tried to discuss whether she stopped taking medications in the community prior to this admission, but she's not sure. -talking a little more freely today; other staff concur, so will hold off w/ ativan trial for now -consider increasing Rexulti though not wanting to worsen Parkinsonism (though risk is lower) -OT did [place] and patient improved since previous assessment 10/03 pt refused all her meds today. Patient with significant and increased speech latency and thought blocking; patient with odd, rocking movements and purposeless movements. On inquiry, regarding med refusal she says she did not take them because um...i don't think it helps... Patient continued refused despite communications writer's numerous attempts to discuss; patient does not appreciate info regarding UTI and risks of not taking antibiotic; -patient does not have capacity Collateral from patient's daughter and VNA: -Patient stopped taking medications for several weeks prior to this hospitalization and was wandering in the community. Patient herself called the police but then said never mind however the police sent an ambulance for her which resulted in this a mission -Patient has history of trauma; slowed movements and speech at baseline 10/04 pt continues to refuse all medications; in meeting with pt she cannot seem to explain why. Pt continues to have odd movements and remains with significant speech latency and thought blocking and is increasingly tremulous. -pt is disorganized in speech and behavior and with odd movements in addition to Parkinsons; team agrees that she will do much better on the Geriatric unit whose milue is much less kinetic. 10/05 pt concern about UTI, did take medications today. order CMP as pt reported brown urine. BUN increased 29, with slight increase in Cr 0.83 (from 0.69). renal function stable, may be somewhat dehydrated. continue current tx. -patient does not have capacity; if patient has a healthcare proxy communications writer would invoke healthcare proxy at this time 10/06 Patient doing much better on the geriatric unit, taking her medications, eating. Patient asked about her UTI and said that some of her urine was brown in the morning but then it had become clear. Asked communications writer about antibiotic and accepted answer for continued treatment. No expressions of paranoid ideations -continue current medication regimen including Ativan as patient has improved -will review antibiotic 10/07 continue current treatment plan Reviewed microbiology and Macrobid is sensitive; will extend for few days 10/08 continue tx. 10/09 continue tx. pt reported brown urine, but collection of urine is clean and clear. 10/10 more visible, no overt psychosis or delusional content. 10/11 continue tx. may decrease ativan 0.5mg po TID, monitor return of catatonia 10/12 continue tx. 10/14 no sx of catatonia evidenced today. Continue tx 10/15 continue tx. 10/16 continue tx. 10/17 continue tx. plan for dc end of this week or next. 10/19 plan to dc 10/22 10/20: Continue current management and treatment plan. 10/21: continue current management and treatment plan. Reason for continued inpatient stay Substantial Risk for: inability to function and rapid decompensation Time Spent With Patient Time: Total time managing care of this patient today ____ minutes.
[2024-10-21 20:00] VITALS: BP 137/59; PULSE 60; RESP 17; TEMP 36.9; O2SAT 98
[2024-10-21 20:37] VITALS: BP 137/59; PULSE 63
[2024-10-22 08:00] VITALS: PULSE 77; RESP 16; TEMP 36.2; O2SAT 98
--- NOTE | 2024-10-22 08:35 | HO.PSYCHPN ---
Subjective Subjective Reason For Visit: Psychosis Diagnostics Vital Signs (24Hr): Vital Signs - 24 hr 10/21/24 20:00 10/21/24 20:37 Temperature 98.4 F Pulse Rate 60 63 Respiratory Rate 17 Blood Pressure 137/59 L 137/59 L Pulse Oximetry 98 Oxygen Delivery Method Room Air BMI result Body Mass Index 18.8 Labs 09/27/24 05:41 10/05/24 13:37 Medications Medications Current Medications Acetaminophen (Acetaminophen 325 Mg Tablet) 650 mg PO Q6H PRN PRN Reason: Headache/Pain, Scale 1-10 Al Hydroxide/Mg Hydroxide (Magnesium Hydrox/Alum Hydrox 30 Ml Oral.Susp) 30 ml PO Q6H PRN PRN Reason: Heartburn/Nausea Atorvastatin Calcium (Atorvastatin Calcium 10 Mg Tablet) 10 mg PO BEDTIME REPLACED BY [facility] Last Admin: 10/21/24 20:36 Dose: 10 mg Benztropine Mesylate (Benztropine Mesylate 0.5 Mg Tablet) 0.5 mg PO BEDTIME REPLACED BY [facility] Last Admin: 10/21/24 20:36 Dose: 0.5 mg Brexpiprazole (Brexpiprazole 2 Mg Tablet) 2 mg PO DAILY [facility]PLACED BY [facility] Last Admin: 10/21/24 08:37 Dose: 2 mg Carbidopa/Levodopa (Carbidopa/Levodopa 25/100 Tablet) 1 tab PO BID@0900,1200 REPLACED [facility] Last Admin: 10/21/24 12:27 Dose: 1 tab Hydroxyzine HCl (Hydroxyzine Hcl 25 Mg Tablet) 25 mg PO Q6H PRN PRN Reason: mild anxiety Lorazepam (Lorazepam 0.5 Mg Tablet) 0.5 mg PO TID REPLACED BY [facility] Last Admin: 10/21/24 20:37 Dose: 0.5 mg Magnesium Hydroxide (Milk Of Magnesia 30 Ml Oral.Susp) 30 ml PO DAILY PRN PRN Reason: Constipation Melatonin (Melatonin 3 Mg Tablet) 6 mg PO BEDTIME REPLACED BY [facility] Last Admin: 10/21/24 20:37 Dose: 6 mg Memantine (Memantine Hcl 5 Mg Tablet) 5 mg PO DAILY REPLACED BY [facility] Last Admin: 10/21/24 08:37 Dose: 5 mg Metoprolol Tartrate (Metoprolol Tartrate 25 Mg Tablet) 25 mg PO BID REPLACED BY [facility]; Protocol Last Admin: 10/21/24 20:37 Dose: 25 mg Senna/Docusate Sodium (Sennosides/Docusate Sodium Tablet) 1 tab PO BID PRN PRN Reason: Constipation Trazodone HCl (Trazodone Hcl 100 Mg Tablet) 100 mg PO BEDTIME [facility] Last Admin: 10/21/24 20:37 Dose: 100 mg Trazodone HCl (Trazodone Hcl 50 Mg Tablet) 50 mg PO BEDTIME PRN PRN Reason: Insomnia Last Admin: 09/28/24 20:42 Dose: 50 mg Allergies Allergies Allergy/AdvReac Type Severity Reaction Status Date / Time No Known Allergies Allergy Verified 09/27/24 05:26 Assessment & Plan Assessment & Plan (1) Schizoaffective disorder: Qualifiers: Schizoaffective disorder type: unspecified Qualified Code(s): F25.9 - Schizoaffective disorder, unspecified Status: Acute Code(s): F25.9 - Schizoaffective disorder, unspecified (2) UTI (urinary tract infection): Status: Acute Code(s): N39.0 - Urinary tract infection, site not specified Assessment and Plan: resolved. (3) PTSD (post-traumatic stress disorder): Status: Acute Code(s): F43.10 - Post-traumatic stress disorder, unspecified (4) Catatonia: Status: Acute Code(s): F06.1 - Catatonic disorder due to known physiological condition Assessment and Plan: resolved. Plan Readmission in the context of medication non adherence. Off medications significant delusions, disorganized behavior, noticeable concern from Roommate and visiting nurse services. patient does present as guarded and paranoid. Perseverative on discharge. Reports he will not take medications however will order same so patient has the option should they change of mind. Educated on 3 day notice and Aguilera Warning should they choose to perceive same, otherwise admitted on voluntary status. 09/30: encourage med adherence 10/01 Patient denies AVH. Slow moving with speech latency ; says she is all right. Not really able to explain why she ended up coming to the hospital -uti; discussed with hospitalist who will start antibiotic -considered Ativan for what seems like catatonic symptoms however staff who knows her says she is typically slow; will hold off for now 10/02 still with speech latency but less today... denies AVH; says i'm alright. She thinks maybe she's getting back to her regular self...Tried to discuss whether she stopped taking medications in the community prior to this admission, but she's not sure. -talking a little more freely today; other staff concur, so will hold off w/ ativan trial for now -consider increasing Rexulti though not wanting to worsen Parkinsonism (though risk is lower) -OT did [place] and patient improved since previous assessment 10/03 pt refused all her meds today. Patient with significant and increased speech latency and thought blocking; patient with odd, rocking movements and purposeless movements. On inquiry, regarding med refusal she says she did not take them because um...i don't think it helps... Patient continued refused despite racebook writer's numerous attempts to discuss; patient does not appreciate info regarding UTI and risks of not taking antibiotic; -patient does not have capacity Collateral from patient's daughter and VNA: -Patient stopped taking medications for several weeks prior to this hospitalization and was wandering in the community. Patient herself called the police but then said never mind however the police sent an ambulance for her which resulted in this a mission -Patient has history of trauma; slowed movements and speech at baseline 10/04 pt continues to refuse all medications; in meeting with pt she cannot seem to explain why. Pt continues to have odd movements and remains with significant speech latency and thought blocking and is increasingly tremulous. -pt is disorganized in speech and behavior and with odd movements in addition to Parkinsons; team agrees that she will do much better on the Geriatric unit whose milue is much less kinetic. 10/05 pt concern about UTI, did take medications today. order CMP as pt reported brown urine. BUN increased 29, with slight increase in Cr 0.83 (from 0.69). renal function stable, may be somewhat dehydrated. continue current tx. -patient does not have capacity; if patient has a healthcare proxy racebook writer would invoke healthcare proxy at this time 10/06 Patient doing much better on the geriatric unit, taking her medications, eating. Patient asked about her UTI and said that some of her urine was brown in the morning but then it had become clear. Asked racebook writer about antibiotic and accepted answer for continued treatment. No expressions of paranoid ideations -continue current medication regimen including Ativan as patient has improved -will review antibiotic 10/07 continue current treatment plan Reviewed microbiology and Macrobid is sensitive; will extend for few days 10/08 continue tx. 10/09 continue tx. pt reported brown urine, but collection of urine is clean and clear. 10/10 more visible, no overt psychosis or delusional content. 10/11 continue tx. may decrease ativan 0.5mg po TID, monitor return of catatonia 10/12 continue tx. 10/14 no sx of catatonia evidenced today. Continue tx 10/15 continue tx. 10/16 continue tx. 10/17 continue tx. plan for dc end of this week or next. 10/19 plan to dc 10/22 10/20: Continue current management and treatment plan. 10/21: continue current management and treatment plan. Time Spent With Patient Time: Total time managing care of this patient today ____ minutes.
[2024-10-22 09:36] VITALS: BP 97/53; PULSE 71
--- NOTE | 2024-10-22 09:49 | PM.PSYDC ---
DS: Providers Provider Date of Service: 10/22/24 Date of admission: 09/28/24 13:47 Date of discharge: 10/22/24 Primary care physician: Unknown Physician Consults: 10/05/24 10:54 Consult to Hospitalist Routine Comment: Consulting Provider: [facility] [place] Hospitalists Reason For Exam: medical assessment Discharging clinician: Demi Morales DS: Diagnosis Discharge Diagnosis (1) Schizoaffective disorder: Status: Acute (2) UTI (urinary tract infection): Status: Acute (3) PTSD (post-traumatic stress disorder): Status: Acute (4) Catatonia: Status: Acute DS: Medications Discharge Medications Home Medications: Home Medications ?Medication ?Instructions ?Recorded ?Confirmed carbidopa 25 mg-levodopa 100 mg 1 tab PO BID@0900,1200 09/27/24 09/27/24 tablet Previous Rx's ?Medication ?Instructions ?Recorded brexpiprazole 2 mg tablet (Rexulti) 2 mg PO DAILY #30 tabs 07/30/24 alendronate 70 mg tablet 70 mg PO FR #4 tabs 07/31/24 benztropine 0.5 mg tablet 0.5 mg PO BEDTIME #30 tabs 07/31/24 melatonin 3 mg tablet 6 mg (2 x 3 mg) PO BEDTIME #60 tabs 07/31/24 memantine 5 mg tablet 5 mg PO DAILY #30 tabs 07/31/24 metoprolol tartrate 25 mg tablet 25 mg PO BID #60 tabs 07/31/24 sennosides 8.6 mg-docusate sodium 1 tab PO BID PRN Constipation #60 07/31/24 50 mg tablet (Senna Plus) tabs simvastatin 20 mg tablet 20 mg PO BEDTIME #30 tabs 07/31/24 trazodone 100 mg tablet 100 mg PO BEDTIME #30 tabs 07/31/24 mupirocin 2 % topical ointment 1 appl topical BID #15 grams 09/09/24 Mental Status Exam Mental Status Exam Narrative: Appearance: wearing hospital gown, poor hygiene, in NAD behavior: cooperative Psychomotor: no overt retardation nor agitation Speech: Spontaneous, improved and more clearly enunciating words TP: Goal oriented TC: doing well, wondering about d/c Mood: ok Affect: constricted Si: denies HI: denies VH/AH:no overt Delusions: no overt delusional Insight/judgment: very poor x 2 Memory/cog: alert, oriented x 3. Data Data Completed and Pending Completed studies during hospitalization [Text1]: 10/09/24 Unknown Urine clean catch - Clean Catch Midstream Urine Culture - Final No growth. 09/28/24 Unknown Urine clean catch - Clean Catch Midstream Urine Culture - Final Escherichia coli 09/27/24 Unknown Urine clean catch - Clean Catch Midstream Urine Culture - Final DS: Summary Hospital Course Hospital Course: Ms. Harp is a 68 year-old woman with hx of schizophrenia. She had been coming to the ED after calling 911 reporting all sorts of medical concerns that when assessed in the ED did not seem congruent with her reports. VNA had reported pt had declined medications for 2 weeks and was leaving the house. She was not getting lost but appeared increasingly more paranoid and suspicious. On the unit, pt presented with s/s of catatonia, guarded and paranoid and refusing all medications. She was started on ativan 1mg po TID and was continued on rexulti. She gradually presented as more talkative, less staring, and getting out of her room. She eventually resume all her medications. She did have a UTI and was treated with bactrim. She did for some time had somatic delusions and reported her urine was brown however, further urine analysis showed clear urine and she declined any pelvic pain and burning when urinating. She reported she had stopped all medications at home because she thought they were making her get sick. She denied SI/HI. No overt psychosis or delusions at time of discharge. In terms of medications, pt was continued on ativan, lowered to 0.5mg po TID. She was also continued on rexulti 2mg po daily. She had namenda which had been started last admission for negative symptoms of schizophrenia. She was more visible on the unit, social with select peers. Her thought content is with poverty of thought and at baseline but has limited insight into her illness and need for ongoing treatment. She was sleeping and eating well. Discussed with daughter that eventually, pt may need to be placed as she needs more supports with coordinating appointments, cooking meals/ transportation. She does have VNA now helping with medication management. Status at Discharge Cognitive/behavioral status at discharge: Pt with constricted but stable affect. No SI/HI. No overt psychosis/delusions. Sleeping and eating well. No aggression towards self or others. Functional status at discharge: uses cane/walker Overall status at discharge: patient is back to baseline Time Spent with Patient Time attestation: Total time managing care of this patient today __45__ minutes. Time spent: Greater than 30 minutes Discharge Plan Discharge Anticipated Discharge Date/Time: 10/22/24 09:49 Patient Disposition: Home, Self-Care Discharge Diagnosis: schizophrenia Referrals: Leena Ernst Visiting RN [Other] - 1 Week Referral Note: Fax - [phone] Visiting RN to restart at D/C Ford Yanez ([employer]) [Other] - 10/23/24 3:30 pm Referral Note: You will see Ford on 10/23 at 3:30pm. If you need to reschedule or cancel the appointment please call the number listed Loree Noguera RN [Physician, Internal Medicine] - 10/24/24 11:30 am Referral Note: You will see Loree on 10/24 at 11:30 AM. If you need to cancel or reschedule the appointment please call the number listed. Luciana Winters MD [Physician, Internal Medicine] - 11/05/24 9:00 am Referral Note: You will see on 11/05 at 9:00 AM. They have been informed of your urine issues and discussions of having monthly UTI checks have been discussed. Please bring this up to the doctor as well. If you need to reschedule or cancel the appointment please call the number listed. Discharge Medications: New benztropine 0.5 mg Tablet 0.5 mg PO BEDTIME Qty: 30 0RF sennosides-docusate sodium [Senna Plus] 8.6-50 mg Tablet 1 tab PO BID PRN (Reason: Constipation) Qty: 60 0RF melatonin 3 mg Tablet 6 mg PO BEDTIME Qty: 60 0RF lorazepam 0.5 mg Tablet 0.5 mg PO TID Qty: 90 0RF trazodone 100 mg Tablet 100 mg PO BEDTIME Qty: 30 0RF carbidopa-levodopa 25-100 mg Tablet 1 tab PO BID@0900,1200 Qty: 60 0RF memantine 5 mg Tablet 5 mg PO DAILY Qty: 30 0RF Rexulti 2 mg Tablet 2 mg PO DAILY Qty: 30 0RF Continued metoprolol tartrate 25 mg Tablet 25 mg PO BID Qty: 60 0RF Protocol: Hold for SBP/HR < HOLD for SBP < : 90 HOLD for HR < : 60 alendronate 70 mg tablet 70 mg PO FR Qty: 4 0RF simvastatin 20 mg tablet 20 mg PO BEDTIME Qty: 30 0RF Discontinued Rexulti 2 mg Tablet 2 mg PO DAILY Qty: 30 0RF benztropine 0.5 mg Tablet 0.5 mg PO BEDTIME Qty: 30 0RF memantine 5 mg Tablet 5 mg PO DAILY Qty: 30 0RF trazodone 100 mg tablet 100 mg PO BEDTIME Qty: 30 0RF sennosides-docusate sodium [Senna Plus] 8.6-50 mg Tablet 1 tab PO BID PRN (Reason: Constipation) Qty: 60 0RF melatonin 3 mg Tablet 6 mg PO BEDTIME Qty: 60 0RF mupirocin 2 % ointment 1 appl topical BID Qty: 15 0RF carbidopa-levodopa 25-100 mg tablet 1 tab PO BID@0900,1200 Discharge Orders: Discharge Order (Routine); Ordered 10/22/24 Ordered By: Demi Morales Diet: Regular diet Activity on Discharge: Use cane or walker Stand Alone Forms: Patient Portal Discharge page Print Language: Turkmen Care Plan Goals: maintain mood no si/hi no overt psychosis or delusion Health Concerns: follow up with PCP for routine care. Plan of Treatment: 1. Take medications as prescribed 2. Go to nearest ED or call 911 in event of emergency Assessment: Pt with slightly brighter, although constricted at baseline. NO SI/HI. sleeping and eating well. No aggression towards self or others.
== END 2024-10-22 13:55 | disposition home or self-care (01) | DRG 885 ==
LOC: HO.ED 09-28 12:48 → HO.PM5 09-28 13:48 → HO.PGERI 10-04 14:58
PROVIDERS: Emergency Medicine Emergency Medical Services; Admitting Provider Psychiatry & Neurology Psychiatry; Emergency Provider Emergency Medicine; Visit Provider Social Worker
DX: F20.9 Schizophrenia, unspecified (principal); B96.20 Unspecified Escherichia coli [E. coli] as the cause of diseases classified elsewhere; F43.10 Post-traumatic stress disorder, unspecified; F06.1 Catatonic disorder due to known physiological condition; I10 Essential (primary) hypertension; E78.5 Hyperlipidemia, unspecified; F41.9 Anxiety disorder, unspecified; Z79.899 Other long term (current) drug therapy
CPT/HCPCS: 36415; 80048; 80053; 80061; 80076; 80307; 81001; 83036; 83735; 84443; 85025; 87086; 87088; 87186; 99285; S9485

== ENCOUNTER → 2024-09-28 13:47 | Outpatient (BNV) | payer MEDICARE, MEDICAID, SELFPAY | PROVIDERS: Admitting Provider Psychiatry & Neurology Psychiatry; Emergency Provider Emergency Medicine; Visit Provider Nurse Practitioner Family | DX: N39.0 Urinary tract infection, site not specified (principal) | CPT/HCPCS: 99221 ==

== ENCOUNTER → 2024-09-28 13:47 | Outpatient (BNV) | payer MEDICARE, MEDICAID, SELFPAY | PROVIDERS: Admitting Provider Psychiatry & Neurology Psychiatry; Emergency Provider Emergency Medicine; Visit Provider Psychiatry & Neurology Psychiatry | DX: F25.9 Schizoaffective disorder, unspecified (principal); F43.11 Post-traumatic stress disorder, acute; F06.1 Catatonic disorder due to known physiological condition; N39.0 Urinary tract infection, site not specified; F20.9 Schizophrenia, unspecified | CPT/HCPCS: 90792; 99231; 99232 ==

== ENCOUNTER 2024-11-01 14:39 | Outpatient (REF) | payer MEDICARE, MEDICAID, SELFPAY ==
--- OUTSIDE RECORDS SUMMARY | 2017-04-08 10:05 | XMS_ITS | Continuity of Care Document ---
Author Organization [place] [employer] [facility] Address [address] [place] [address] Phone Care Team Providers Care Economist Research Assistant Name Role Phone Unavailable Unavailable Unavailable Allergies, [...] Location Reason(s) For Visit Diagnoses Date Provider [employer] [facility], [address], [place], [place], [id number], tel:[phone] [facility] No Information 8 No Information [facility], [address], [place], [place], [id number], tel:[phone] [facility] hypertension (chief complaint)ast hma (chief complaint)TRAVIS D (chief complaint)col d sores (chief complaint) Essential (primary) hypertensionGERD w/o esophagitisUnspecifie d asthma, uncomplicatedHerpes simplex labialis 7 No Information [facility], [address], [place], [place], [id number], tel:[phone] [facility] Establish care (chief complaint)Hyp ertension (chief complaint)TRAVIS D (chief complaint)ast hma (chief complaint) Essential (primary) hypertensionGERD w/o esophagitisUnspecifie d asthma, uncomplicated 7 No Information [facility], [address], [place], [place], [id number], tel:[phone] [facility] Essential (primary) hypertensionUnspecifi ed asthma, uncomplicated 7 No Information [facility], [address], [place], [place], [id number], tel:[phone] [facility] Cough (chief complaint)hyp ertension (chief complaint)TRAVIS D (chief complaint) Bronchopneumonia, unspecified organismGERD w/o esophagitis 7 Raad Alfaro. [facility] [address] [place], [place], [id number], [place]. tel:[phone] Family History Family Member Type Diagnosis Age At Onset No Information Payers Payer name Insurance type Covered democrat ID Authoriza tibailey(s) [employer] O [id number] Social History Type Description Quantity Date Captured Comments Sex Female Smoking Status No Information Chief Complaint And Reason For Visit No Information Plan Of Treatment Date Type Action Status Goal Pneumo (2 yrs or older) (PPV 23). Due on due Goal Spirometry. Due on 17 due Goal FOBT. Due on due Goal Zoster vaccine. Due on due Goal Depression screening. Due on due Goal Td vaccine. Due on 17 due Goal H&P. Due on due Goal Influenza vaccine. Due on due Goal Lipid Panel. Due on due Goal Tdap. Due on due Goal Colonoscopy. Due on due Goal Glucose. Due on due Goal ECG. Due on due Goal Diabetes screening. Due on due Goal Spirometry. Due on [...] home and may be moving back to [place] however they are uncertain where. The pt's mother recently broke her hip so the pt has been going back and forth to [place] for that to. Cold sores are occurring [...] worse. Last EGD 3 years ago in [place]. Hypertension It is currently stable. Risk factors [...] hours for last 3 days. hypertension (comments) [facility] Has refills on HTN medications.PMHX- HTN, [...]
--- OUTSIDE RECORDS SUMMARY | 2024-11-01 14:42 | XMS_ITS | Encounter Summary ---
Author Organization [facility] Address [address] [place] [address] Care Team Providers Care Health And Physical Education Professor Name Role Phone Simon Katz MD Primary Care Provider [phone] Encounter Details Date Type Department Care Team (Late st Contact Info) Description 03/07/2024 Lab Requisition [facility] - Main Lab [address] [place] [address] Simon Katz MD 38 [facility] [address] [place], [phone] Essential (primary) hypertension; Poikiloderma vasculare atrophicans; [...] LAB CHEMISTRY METHOD 03/07/2024 12:26 PM EST [facility] Potassium 3.8 3.5 - 5.5 mmol/L LAB CHEMISTRY METHOD 03/07/2024 12:26 PM [facility] Chloride 109 96 - 110 mmol/L LAB CHEMISTRY METHOD 03/07/2024 12:26 PM [facility] CO2 26 21 - 32 mmol/L LAB CHEMISTRY METHOD 03/07/2024 12:26 PM [facility] Anion Gap 9 3 - 11 LAB CHEMISTRY METHOD 03/07/2024 12:26 PM [facility] Glucose 111(H) 70 - 100 mg/dL LAB CHEMISTRY METHOD 03/07/2024 12:26 PM [facility] BUN 16 5 - 25 mg/dL LAB CHEMISTRY METHOD 03/07/2024 12:26 PM [facility] Creatinine 0.72 0.50 - 1.10 mg/dL LAB CHEMISTRY METHOD 03/07/2024 12:26 PM [facility] eGFR 91 >=60 mL/min/1. 73m2 LAB CHEMISTRY METHOD 03/07/2024 12:26 PM [facility] Comment:Calculation based on the Chronic Kidney Disease Epidemiology Collaboration (CKD-EPI) equation refit without adjustment for race. BUN/Creatinine Ratio 22.2 LAB CHEMISTRY METHOD 03/07/2024 12:26 PM [facility] Calcium 9.2 8.5 - 10.5 mg/dL LAB CHEMISTRY METHOD 03/07/2024 12:26 PM [facility] Blood Venous blood specimen / Unknown Venipuncture / Unknown 03/07/2024 8:35 AM EST 03/07/2024 10:21 AM EST us Simon Katz MD LAB BLOOD ORDERABLES Final Resul t [facility] [address] [place] [address], * (ABNORMAL) Complete blood count (03/07/2024 8:35 AM EST) [facility] WBC 5.4 4.8 - 10.8 K/mcL LAB HEMETOLOGY METHOD 03/07/2024 12:32 PM [facility] RBC 3.70(L) 3.80 - 4.80 M/mcL LAB HEMETOLOGY METHOD 03/07/2024 12:32 PM [facility] Hemoglobin 10.7(L) 11.5 - 16.0 g/dL LAB HEMETOLOGY METHOD 03/07/2024 12:32 PM [facility] Hematocrit 33.9(L) 35.0 - 47.0 % LAB HEMETOLOGY METHOD 03/07/2024 12:32 PM [facility] MCV 92.4 79.0 - 98.0 FL LAB HEMETOLOGY METHOD 03/07/2024 12:32 PM [facility] MCH 29.2 27.0 - 32.0 pcg LAB HEMETOLOGY METHOD 03/07/2024 12:32 PM [facility] MCHC 31.6(L) 32.0 - 37.0 g/dL LAB HEMETOLOGY METHOD 03/07/2024 12:32 PM [facility] RDW 13.3 11.0 - 15.0 % LAB HEMETOLOGY METHOD 03/07/2024 12:32 PM [facility] Platelets 164 130 - 400 K/mcL LAB HEMETOLOGY METHOD 03/07/2024 12:32 PM [facility] MPV 13.2(H) 7.0 - 11.0 FL LAB HEMETOLOGY METHOD 03/07/2024 12:32 PM [facility] NRBC 0.0 <1.0 % LAB HEMETOLOGY METHOD 03/07/2024 12:32 PM [facility] NRBC Absolute 0.00 <0.10 K/mcL LAB HEMETOLOGY METHOD 03/07/2024 12:32 PM EST [facility] Blood Venous blood specimen / Unknown Venipuncture / Unknown 03/07/2024 8:35 AM EST 03/07/2024 10:21 AM EST us Simon Katz MD LAB BLOOD ORDERABLES Final Resul t [facility] [address] [place] [address], documented in this encounter Visit Diagnoses Diagnosis Essential (primary) hypertension Unspecified essential hypertension Poikiloderma vasculare atrophicans Encounter for examination for admission to [facility] institution documented in this encounter Care Teams Health And Physical Education Professor Relationship Specialty Start Date End Date Simon Katz MD [address] [place] [address], [phone] PCP - General Family Medicine 02/03/24 documented as of this encounter
--- OUTSIDE RECORDS SUMMARY | 2024-11-01 14:42 | XMS_ITS | Encounter Summary ---
Author Organization [employer] Address [address] [place] [address] [address] [place] [address] Care Team Providers Care Chief Enterprise Architect Name Role Phone Luciana Winters MD Primary Care Provider [phone] Reason for Referral * Consultation (Urgent) - Denied Specialty Diagnoses / Procedures Referred By Contjose t Referred To Contact Diagnoses Basal cell carcinoma (BCC) of skin of other part of face Underweight Undifferentiated schizophrenia (CMS/HCC) Luciana Winters MD [address] [place] [phone] Phone: tel: fax: [address] [address] Phone: tel: fax: Referral ID Status Reason Start Date Expiration Date V isits Requested Visits Authorized [id number] Denied Specialty Services Required 09/21/2024 09/21/2025 1 0 Encounter Details Date Type Department Care Team (Late st Contact Info) Description 09/21/2024 Orders Only [facility] [address] [place] [address] [phone] Luciana Winters MD [address] [place] [address] [phone] Basal cell carcinoma (BCC) of skin of other part of face (Primary Dx); Underweight; Undifferentiated schizophrenia (CMS/HCC) Social History Tobacco Use [...] Care Team (Late st Contact Info) Description 11/05/2024 9:00 AM EDT Office Visit [facility] [address] [place] [phone] Luciana Winters MD [address] [place] [phone] 11/19/2024 1:45 PM EDT Office Visit [facility] [address] [place] [phone] Luciana Winters MD [address] [place] [address] Scheduled Referrals Name Type Priority Associated Diagnoses Orde r Schedule Referral to Care Management Outpatient Referral Urgent Basal cell carcinoma (BCC) of skin of other part of face Underweight Undifferentiated schizophrenia (CMS/HCC) Expected: 09/21/2024 (Approximate), Expires: 09/21/2025 documented as of this encounter Visit Diagnoses Diagnosis Basal cell carcinoma (BCC) of skin of other part of face- Primary Underweight Undifferentiated schizophrenia (CMS/HCC) documented in this encounter Additional Health Concerns Assessment Noted Time PHQ-9 Depression Total Score: 3 12/20/19 24 1:29 PM EDT documented as of this encounter Care Teams Chief Enterprise Architect Relationship Specialty Start Date End Date Luciana Winters MD [address] [place] [address] PCP - General Family Medicine 03/28/18 Leena 08/01/24 documented as of this encounter
[2024-11-01 16:14] LABS: Imm Gran Abs Auto 0.03 X10*3/uL (0.00-0.03); Imm Gran Pct Auto 0.4 % (0.0-0.4); MANUAL DIFF FLAG SCAN; NRBC Abs Auto 0.000 X10*3/uL (0.0-0.012); NRBC Pct Auto 0.0 /100WBC (0.0-0.2); Red Blood Count 5.05 X10*6/uL (4.20-5.50); SCAN SMEAR FLAG 1
[2024-11-01 16:16] LABS: Hematocrit 45.4 % (37.0-47.0); Hemoglobin 14.5 g/dl (12.0-16.0); Lymphocytes Absolute Auto 2.1 X10*3/uL (1.2-4.9); Mean Corpuscular HGB Conc 31.9 g/dl (31.0-35.0); Mean Corpuscular Hemoglobin 28.7 pg (27.0-33.0); Mean Corpuscular Volume 89.9 fL (80.0-98.0); Platelet Count 184 X10*3/uL (160-400); White Blood Count 7.7 X10*3/uL (4.8-10.8)
[2024-11-01 16:33] LABS: PLT ABN DIST 1
[2024-11-01 16:40] LABS: Appearance Urine Cloudy; Glucose Urine UA Negative (Negative); PH 5.5 (5.0-9.0); Specific Gravity - Urine 1.020 (1.005-1.025); UMIC TRIGGER UACC YES
[2024-11-01 17:05] LABS: UACC Culture Trigger YES
== END 2024-11-01 14:40 | disposition home or self-care (01) ==
LOC: HO.HHCL 14:39
PROVIDERS: PCP Family Medicine; Visit Provider Registered Nurse Psychiatric/Mental Health
DX: Z13.29 Encounter for screening for other suspected endocrine disorder (principal); Z11.2 Encounter for screening for other bacterial diseases; R41.0 Disorientation, unspecified
CPT/HCPCS: 36415; 81001; 84443; 85025; 87086; 87088; 87186

== ENCOUNTER 2024-11-19 16:10 | Emergency (ER) | payer MEDICARE, MEDICAID, SELFPAY ==
--- OUTSIDE RECORDS SUMMARY | 2017-04-08 10:05 | XMS_ITS | Continuity of Care Document ---
Author Organization [place] [facility] Address [address] [place] [address] Phone Care Team Providers Care Assembly Cleaner Name Role Phone Unavailable Unavailable Unavailable Allergies, Adverse Reactions, Alerts Substance Reaction Status Criticality DIPHENHYDRAMINE HCL Itching(moderate) Active No Information soap Itching(mild) Active No Information povidone-iodine Itching(mild) Active No Informat ion Medications Medication Instructions Dosage Effective Dates (start - stop) Status Comments Co Q-10 300 mg capsule Take one capsule by oral route daily - Active lansoprazole 30 mg capsule,delayed release take 1 capsule by oral route every day before a meal 30 MG - Active lisinopril 20 mg-hydrochlorothiazi de 12.5 mg tablet take 1 tablet by oral route every day 1.00 tablet - Active Klor-Con M20 mEq tablet,extended release take 1 tablet by oral route every day with food 20 MEQ - Active valacyclovir 1 gram tablet take 1 tablet by oral route every 12 hours x 7 days - Active valacyclovir 1 gram tablet take 2 tablet by oral route every 12 hours x 1 day at onset of symptoms - Active ranitidine 150 mg tablet take 1 tablet by oral route once daily in the evening - Active red yeast rice 600 mg tablet - Active Vitamin D3 5,000 unit tablet - Active Calcium 600 600 mg (1,500 mg) tablet - Active Glucosamine 500 mg tablet - Active ProAir HFA 90 mcg/actuation aerosol inhaler inhale 2 puff by inhalation route every 4 - 6 hours as needed - Active Advance Directives Directive Yes / No Effective Date File Name No Information Encounters Encounter Description Practice Location Reason(s) For Visit Diagnoses Date Provider [facility], [address], [place], [place], [id number], tel:[phone] [facility] No Information 8 No Information [facility], [address], [place], [place], [id number], tel:[phone] [facility] hypertension (chief complaint)ast hma (chief complaint)TRAVIS D (chief complaint)col d sores (chief complaint) Essential (primary) hypertensionGERD w/o esophagitisUnspecifie d asthma, uncomplicatedHerpes simplex labialis 7 No Information [facility], [address], [place], [place], [id number], tel:[phone] [facility] Establish care (chief complaint)Hyp ertension (chief complaint)TRAVIS D (chief complaint)ast hma (chief complaint) Essential (primary) hypertensionGERD w/o esophagitisUnspecifie d asthma, uncomplicated 7 No Information [facility], [address], [place], [place], [id number], tel:[phone] [facility] Essential (primary) hypertensionUnspecifi ed asthma, uncomplicated 7 No Information [facility], [address], [place], [place], [id number], tel:[phone] [facility] Cough (chief complaint)hyp ertension (chief complaint)TRAVIS D (chief complaint) Bronchopneumonia, unspecified organismGERD w/o esophagitis 7 Raad Alfaro. [facility] [address] [place], [place], [id number], [place]. tel:[phone] Family History Family Member Type Diagnosis Age At Onset No Information Payers Payer name Insurance type Covered republican ID Authoriza tibailey(s) [employer] O [id number] Social History Type Description Quantity Date Captured Comments Sex Female Smoking Status No Information Chief Complaint And Reason For Visit No Information Plan Of Treatment Date Type Action Status Goal Colonoscopy. Due on due Goal Lipid Panel. Due on due Goal Influenza vaccine. Due on due Goal FOBT. Due on due Goal Pneumo (2 yrs or older) (PPV 23). Due on due Goal Tdap. Due on due Goal Glucose. Due on due Goal Diabetes screening. Due on due Goal H&P. Due on due Goal ECG. Due on due Goal Zoster vaccine. Due on due Goal Depression screening. Due on due Goal Td vaccine. Due on 17 due Goal Spirometry. Due on 17 due Goal Glucose. Due on due Goal ECG. Due on due Goal Spirometry. Due on 17 due Goal Diabetes screening. Due on due Goal Pneumo (2 yrs or older) (PPV 23). Due on due Goal Spirometry. Due on 17 due Goal Pneumo (2 yrs or older) (PPV 23). Due on due Goal Diabetes screening. Due on due Goal Glucose. Due on due Goal ECG. Due on due History Of Present Illness Encounter Date Complaint History Of Prese nt Illness hypertension It is currently stable. Risk factors include age over age 60 and obesity. Pertinent negatives include chest pain, dyspnea, fatigue, headache, irregular heartbeat/palpitations and visual disturbances. Additional information: Currently on lisinopril-HCTZ 20-12.5mg daily. Tolerating medication. Pt does not check at home. asthma Onset: 36 years ago. The initial visit date was 05/05/2016. Context: allergic. Aggravating factors include environmental allergens and respiratory infection. Symptom relief is noted with beta-agonist inhaler. Pertinent negatives include awakening with cough, awakening with dyspnea, awakening with wheeze, dyspnea at rest, dyspnea with intense exercise, irregular heartbeat/palpitations and tremor after inhaler use. Additional information: Currently using the albuterol HFA minimal. Last used a few weeks ago. cold sores The pt has been under increased stress in the past few months. They recently sold their home and may be moving back to [place] however they are uncertain where. The pt's mother recently broke her hip so the pt has been going back and forth to [place] for that to. Cold sores are occurring a few times per month. Minimal relief with OTC Abreva. GERD The severity of the problem is moderate. The problem has not changed. The symptoms are recurring. The location is epigastric. The quality of the pain is burning. Pertinent negatives include dyspnea. Additional information: Currently on lansoprazole 30mg daily. Tolerating medication. Symptoms are not controlled. Pt has been on Nexium BID in the past with improvement but did not like taking the medication twice per day. GERD Onset: 3 Years. The severity of the problem is moderate. The problem has not changed. The symptoms are recurring. The location is epigastric. The quality of the pain is burning. Aggravating factors include eating. Symptoms are relieved by proton pump inhibitors. Associated symptoms include heartburn and nausea. Pertinent negatives include blood in stool, diarrhea, dyspnea and vomiting. Additional information: Currently on omeprazole 40mg BID. Symptoms controlled. Pt has a hiatal hernia. If pt misses a dose of medication symptoms are worse. Last EGD 3 years ago in [place]. Hypertension It is currently stable. Risk factors include age over age 60 and obesity. The hypertension is exacerbated by nothing. Pertinent negatives include chest pain, dyspnea, fatigue, headache, irregular heartbeat/palpitations and visual disturbances. Additional information: Currently on lisinopril-HCTZ 20-12.5mg daily. Tolerating medication. Establish care The pt is here t o est care. Last seen by PCP about 9 months ago. The pt reports a history of HTN, GERD, hiatal hernia and asthmaDenies tobacco or excess alcohol use. Last pap smear: total hysterectomy in 1999 for endometriosisLast mammogram: 09/2015Last colonoscopy: no previous studyLast EGD: 2013Dental exam: twice per yearEye doctor: annually, wears glassesDiet: fairExercise: minimalTetanus: < 10 yearsFlu shot: no asthma Onset: 36 years ago. The initial visit date was 05/05/2016. The symptoms have stabilized. The asthma is classified as mild intermittent. Context: allergic. Aggravating factors include change in weather, environmental allergens, pollen and respiratory infection. Symptom relief is noted with beta-agonist inhaler. Pertinent negatives include awakening with cough, awakening with dyspnea, awakening with wheeze, dyspnea with intense exercise, dyspnea with moderate exercise, irregular heartbeat/palpitations and tremor after inhaler use. Additional information: Currently on albuterol HFA. Pt reports use is minimal. Pt used it more frequently due to URI. hypertension Risk factors inc lude age over age 60 and obesity. Associated symptoms include fatigue. Pertinent negatives include chest pain, dyspnea, epistaxis, headache, transient weakness, tremor and visual disturbances. Cough (comments) URI started 1 m onth ago. Worsening cough. Hx asthma. Has been using ALbuterol q 4 hours for last 3 days. hypertension (comments) [facility] Has refills on HTN medications.PMHX- HTN, GERD, asthmaPSHx- CAT w/ BSO, 2 back fusion surgeries. GERD Symptoms are rel ieved by proton pump inhibitors. Associated symptoms include heartburn. Pertinent negatives include blood in stool, change in appetite, constipation, dyspnea, fever and weight loss. Cough Onset: 1 month a go. The patient describes the cough as hacking and non-productive. It occurs persistently. The problem has not changed. Symptoms are aggravated by exertion, laughing and lying down. Associated symptoms include cough, fatigue, heartburn, nasal congestion, pleuritic pain, post-nasal drainage, rhinitis, rhinorrhea, sinus pressure, sore throat and wheezing. Pertinent negatives include chills, dyspnea, dyspnea on exertion, epistaxis, fever, hemoptysis, hoarseness, night sweats and weight loss. GERD (comments) Has been treated for acid reflux for years. Was diagnosed with HH and referred to GI who opted not to proeed to surgery. He put her on Omeprazole 40 mg BID. She had previously tried Nexium and Protonix which did not help. She has severe resurgence of symptoosm if she misses doses.Her father from esophageal CA.New insurance requires a prior authorization. Instructions Date Instruction Additional Infor emeterio Discussed GERD and a ggravating factors.Answered questions.Omeprazole 40 mg BIDAdvised to avoid NSAIDs, caffeine, alcohol. spicy foods, tomato, peppermint and chocolate. Advised to avoid eating within 3 hours of bedtime. May use Tums or other antacid prn.Advised pt to RTC if symptoms worsen or do not resolve. Related to GERD w/o esophagitis Azithromycin.Advised to complete entire course of antibiotic.Encouraged to take probiotic daily.Prednisone Taper.Cautioned about possible SEs including irritability, increased appetite, and blood sugar elevation. Advised to avoid NSAID class of medications until Prednisone completed. May take Tylenol.Encouraged to use humidifier in bedroom, steamy showers.Advised adequate fluid intake.May take Mucinex DM or Robitussion DM.Tessalon Perles for night time cough.Albuterol for prn use.Advised pt to RTC if symptoms worsen or do not resolve. Related to Bronchopneumonia, unspecified organism Assessments Type Assessment Date No Information
[2024-11-19 16:11] VITALS: BP 95/69; PULSE 81; RESP 16; TEMP 36.7; O2SAT 97; BMI 18.9
--- NOTE | 2024-11-19 16:12 | ED_ITS ---
HPI - General Adult General Chief complaint: Wound/Laceration Stated complaint: right thumb hang nail Time Seen by Provider: 11/19/24 16:16 Source: patient and other (patient's roommate) Mode of arrival: ambulatory Limitations: no limitations History of Present Illness ED Provider: Ghislaine Vargas PA-C HPI narrative: Patient is a 69 year old assigned female at with a history of schiz ophrenia, HTN, and angiolipoma presenting to the emergency department today with a possible right thumb hang nail. Patient's roommate states that the patient picks at the sides of her fingers fairly often and now she has been picking at her right thumb so she would like to be evaluated for it. Patient denies any other complaints or symptoms at this time. Related Data Previous Rx's ?Medication ?Instructions ?Recorded alendronate 70 mg tablet 70 mg PO FR #4 tabs 07/31/24 brexpiprazole 2 mg tablet (Rexulti) 2 mg PO DAILY #30 tabs 10/22/24 carbidopa 25 mg-levodopa 100 mg 1 tab PO DAILY@0800,12 00 #60 tabs 10/22/24 tablet (Sinemet) lorazepam 0.5 mg tablet 0.5 mg PO TID #90 tabs 10/22 lorazepam 0.5 mg tablet (Ativan) 0.5 mg PO TID #90 tab s 10/22/24 melatonin 3 mg tablet 6 mg (2 x 3 mg) PO BEDTIME # 60 tabs 10/22/24 memantine 5 mg tablet 5 mg PO DAILY #30 tabs 10/22 metoprolol tartrate 25 mg tablet 25 mg PO BID #60 tabs 10/22/24 sennosides 8.6 mg-docusate sodium 1 tab PO BID PRN Con stipation #60 10/22/24 50 mg tablet (Senna Plus) tabs simvastatin 20 mg tablet 20 mg PO BEDTIME #30 tabs simvastatin 20 mg tablet 20 mg PO BEDTIME #30 tabs trazodone 100 mg tablet 100 mg PO BEDTIME #30 tabs 0 10/22/24 Allergies Allergy/AdvReac Type Severity Reaction Status Date / Time No Known Allergies Allergy Verified 11/19/24 16:17 Review of Systems Constitutional: Constitutional: Reports as per HPI Eyes: Eyes: Reports as per HPI ENT: Reports as per HPI Cardiovascular: Cardiovascular: Reports as per HPI Respiratory: Respiratory: Reports as per HPI Gastrointestinal: Gastrointestinal: Reports as per HPI Genitourinary: Genitourinary: Reports as per HPI Musculoskeletal: Musculoskeletal: Reports as per HPI Integumentary/Breasts: Comments: right thumb abrasion Psychiatric: Psychiatric: Reports as per HPI Endocrine: Endocrine: Reports as per HPI Hematologic/Lymphatic: Hematologic/Lymphatic: Reports as per HPI Allergic/Immunologic: Allergic/Immunologic: Reports as per HPI [facility] Past Medical History Attestation statement: The following information was validated with the patient. Source: old records reviewed and nursing notes reviewed Medical History Parkinson's disease without dyskinesia, with fluctuations Porcelain gallbladder Anxiety HLD (hyperlipidemia) HTN (hypertension) Schizophrenia Social History Social History Household Members: Friend(s) Household Members Other:: Roommate Housing: Apartment Do you presently have visiting nurse or other home services: Yes ([facility] [phone]) Alcohol intake: former Comment: 5-min checks Patient Tobacco Use Status: Former Tobacco user e-Cigarette/Vaping Use: Never Used Advance Directives: No Advance Directives Information Provided: Yes Do you have a plan to hurt others: No Plan service: No Current 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 status: 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 Sexual orientation: Straight/Heterosexual Physical Exam ED Vital Signs: Vital Signs - 24 hr 11/19/24 16:11 11/19/24 16:31 Temperature 98.1 F 98.1 F Pulse Rate 81 81 Respiratory Rate 16 16 Blood Pressure 95/69 95/69 Pulse Oximetry 97 97 Oxygen Delivery Method Room Air Room Air BMI result Body Mass Index 18.9 Const General: cooperative, no acute distress, alert and awake Nutritional Appearance: well nourished Orientation/consciousness: patient oriented x3 HENMT Head: Yes normal to inspection and Yes atraumatic Ears: hearing grossly normal bilaterally and external ears normal General nose exam: Normal external nose present, no nasal discharge noted and no epistaxis Face and sinus: Yes normal facial exam, No abrasion and No laceration Mouth: Normal oral and palatal mucosa present, no drooling and no muffled voice Eyes General: appearance normal, both eyes and all related structures Periorbital: periorbital findings normal Eyelids: Yes eyelids normal Conjunctivae: conjunctivae normal Pupils: Equal, round and reactive pupils present EOM: EOMs intact bilaterally Neck Neck: Yes normal visual inspection and Yes full ROM Resp Effort & Inspection: normal respiratory effort and able to speak in complete sentences Neuro General: patient oriented x3, moves all extremities and CN's II-XI intact bilaterally Cranial nerves: Yes Equal, round and reactive pupils present Cognition (Neuro): normal cognition Extrem Other: small abrasion to the ulnar side of the right thumb around the nail - no gaping areas, no active bleeding General: Yes full ROM and Yes capillary refill normal Psych Appearance: grossly normal Mental Status: mental status grossly normal Affect: normal affect Attitude: cooperative Thought process: Normal thought process present Thought content: Normal thought content present Insight: Good insight present (Psych) Medical Decision Making Medical Decision Making MDM Narrative: Patient is a 69 year old assigned female at with a history of schizophrenia, HTN, and angiolipoma presenting to the emergency department today with a possible right thumb hang nail. Patient's physical exam showed an abrased area of the right thumb with no evidence of gaping, active bleeding, or nail involvement. I explained my physical exam findings to the patient and the patient's roommate. I answered all questions asked by the patient and the patient's roommate. I explained to the patient that she must stop picking at her nails / finger skin as it will eventually become infected. I stressed the importance of the patient taking her medication as directed (either prescribed or as the over the counter packaging recommends). I stressed the importance of the patient following up with her primary care provider. I stressed the importa nce of the patient returning to the emergency department immediately if her symptoms were to worsen or if she were to develop any dizziness, shortness of breath, difficulty breathing, chest pain, blurry vision, loss of vision, nausea, vomiting, abdominal pain, fever, chills, back pain, or any other complaints. Patient verbalized agreement and understanding with this treatment plan and discharge. Differential Diagnosis Differential Diagnoses: The differential diagnosis associated with the presentation includes Skin abrasion Hang nail Paronychia Admission/Observation Consideration of admission/observation: Escalation of care including admission/observation considered Patient would have been admitted to the hospital had her clinical presentation warranted hospital admission. Independent Historian Clinical information obtained from an independent historian. History obtained from or confirmed by: Other (patient's roommate provided additional history and confirmed the history provided by the patient. ) Tests considered The following testing was considered but not selected: I considered obtaining an x-ray of the right hand / thumb however, the patient's current clinical presentation and mechanism of injury did not warrant this. Discharge Plan Discharge Clinical Impression: Abrasion of right thumb Patient Disposition: Home, Self-Care Instructions: Abrasion (ED) Additional Instructions: Your thumb is not infected and there is NOTHING to remove. PLEASE stop picking at the effective area. IF you are prescribed home medications and/or you are taking over the counter medications at home - it is very important you continue to do so as prescribed / directed unless told otherwise. Follow up with a primary care provider. Return to the emergency department immediately if your symptoms worsen or if you develop any numbness, tingling, dizziness, shortness of breath, difficulty breathing, chest pain, blurry vision, loss of vision, nausea, vomiting, abdominal pain, fever, chills, back pain, or any other complaints. If you do not have a primary care provider - call any of the below numbers to establish and follow up with a primary care provider. [facility] Primary Care ([place]) [phone] [place] [address], [address] [facility] Primary Care ([address] [place]) [phone] [place] [address], [address] [facility], [address] [facility] Primary Care ([address] [place]) [phone] [place] [address], [address] [facility], [address] [facility] Primary Care ([place]) [phone] [place] [address] 2 [facility], [address] [facility] Family Medicine [phone] [address] [facility], [address] Please see the information below about our Patient Portal. If you are not yet enrolled in the [facility] Patient Portal, you will receive an enrollment email invitation following your visit to any [facility] setting. You may also self-enroll in the Patient Portal by visiting our website: [email or web address] The following information is required to access the Patient Portal: - Your [facility] Medical Record Number - Your personal home email address (must match what is in your electronic medical record, Registration staff can assist with this) - Name - Date of Capabilities of the Patient Portal: - Message some providers - View upcoming appointments - Access your health summary, medical history, and visit history - View current conditions and allergies - View procedure and lab results - View your medications, including guidelines, side effects, and precautions - Complete pre-appointment questionnaires requested by your provider - Ready summary reports of your office visits and procedures To access the Patient Portal Mobile [employer], follow these directions: - Search [employer] in the [employer] Store or [employer] Store - Download the [employer] - Search for [facility] - Enter your login/password Prescriptions: No Action alendronate 70 mg tablet 70 mg PO FR Qty: 4 0RF sennosides-docusate sodium [Senna Plus] 8.6-50 mg Tablet 1 tab PO BID PRN (Reason: Constipation) Qty: 60 0RF melatonin 3 mg Tablet 6 mg PO BEDTIME Qty: 60 0RF lorazepam 0.5 mg Tablet 0.5 mg PO TID Qty: 90 0RF simvastatin 20 mg tablet 20 mg PO BEDTIME Qty: 30 0RF metoprolol tartrate 25 mg Tablet 25 mg PO BID Qty: 60 0RF Protocol: Hold for SBP/HR < HOLD for SBP < : 90 HOLD for HR < : 60 carbidopa-levodopa [Sinemet] 25-100 mg tablet 1 tab PO DAILY@0800,1200 Qty: 60 0RF Rx Instructions: administer 30-60 minutes before bedtime lorazepam [Ativan] 0.5 mg tablet 0.5 mg PO TID Qty: 90 0RF Rexulti 2 mg tablet 2 mg PO DAILY Qty: 30 0RF simvastatin 20 mg tablet 20 mg PO BEDTIME Qty: 30 0RF memantine 5 mg tablet 5 mg PO DAILY Qty: 30 0RF trazodone 100 mg tablet 100 mg PO BEDTIME Qty: 30 0RF Interventions: ED Discharge Assessment Last Done: 11/19/24 16:31 Discharge Date/Time: 11/19/24 16:32 Print Language: Japanese
[2024-11-19 16:31] VITALS: BP 95/69; PULSE 81; RESP 16; TEMP 36.7; O2SAT 97
--- OUTSIDE RECORDS SUMMARY | 2024-11-19 18:07 | XMS_ITS | Encounter Summary ---
Author Organization [facility] Address [address] [place] [address] Care Team Providers Care Slime Plant Operator Name Role Phone Simon Katz MD Primary Care Provider [phone] Encounter Details Date Type Department Care Team (Late st Contact Info) Description 02/03/2024 Lab Requisition [facility] - Main Lab [address] [place] [address] Simon Katz MD [address] [place] [address] [address] [place], [address] Essential (primary) hypertension Social History Tobacco [...] LAB CHEMISTRY METHOD 02/06/2024 11:02 AM EST [facility] Potassium 3.9 3.5 - 5.5 mmol/L LAB CHEMISTRY METHOD 02/06/2024 11:02 AM EST [facility] Chloride 114(H) 96 - 110 mmol/L LAB CHEMISTRY METHOD 02/06/2024 11:02 AM [facility] CO2 26 21 - 32 mmol/L LAB CHEMISTRY METHOD 02/06/2024 11:02 AM [facility] Anion Gap 6 3 - 11 LAB CHEMISTRY METHOD 02/06/2024 11:02 AM [facility] Glucose 70 70 - 100 mg/dL LAB CHEMISTRY METHOD 02/06/2024 11:02 AM [facility] BUN 20 5 - 25 mg/dL LAB CHEMISTRY METHOD 02/06/2024 11:02 AM [facility] Creatinine 0.72 0.50 - 1.10 mg/dL LAB CHEMISTRY METHOD 02/06/2024 11:02 AM [facility] eGFR 91 >=60 mL/min/1. 73m2 LAB CHEMISTRY METHOD 02/06/2024 11:02 AM [facility] Comment:Calculation based on the Chronic Kidney Disease Epidemiology Collaboration (CKD-EPI) equation refit without adjustment for race. BUN/Creatinine Ratio 27.8 LAB CHEMISTRY METHOD 02/06/2024 11:02 AM [facility] Calcium 8.9 8.5 - 10.5 mg/dL LAB CHEMISTRY METHOD 02/06/2024 11:02 AM [facility] Blood Venous blood specimen / Unknown Venipuncture / Unknown 02/06/2024 5:47 AM EST 02/06/2024 9:44 AM EST us Simon Katz MD LAB BLOOD ORDERABLES Final Resul t [facility] [address] [place] [address], documented in this encounter Visit Diagnoses Diagnosis Essential (primary) hypertension Unspecified essential hypertension documented in this encounter Care Teams Slime Plant Operator Relationship Specialty Start Date End Date Simon Katz MD 38 [facility] [address] [place], [phone] PCP - General Family Medicine 02/03/24 documented as of this encounter
--- OUTSIDE RECORDS SUMMARY | 2024-11-19 18:07 | XMS_ITS | Encounter Summary ---
Author Organization [employer] Address [address] [place] [address] [address] [place] [address] Care Team Providers Care Electric Vehicle Electrician Name Role Phone Luciana Winters MD Primary Care Provider [phone] Reason for Visit * Reason Onset Date Comments Nurse Triage 05/27/2023 Encounter Details Date Type Department Care Team ([facility] st Contact Info) Description 05/27/2023 Telephone [facility] [address] [place], [place] [phone] Luciana Winters MD [address] [place], [place] [phone] Nurse Triage Social History Tobacco Use Types [...] Care Team (Late st Contact Info) Description 12/18/2024 1:30 PM EDT Office Visit [facility] [address] [place] [address] Luciana Winters MD [address] [place] [address] documented as of this encounter Visit Diagnoses Not on filedocumented in this encounter Additional Health Concerns Assessment Noted Time PHQ-9 Depression Total Score: 0 09/21/19 11:48 AM EDT documented as of this encounter Care Teams Electric Vehicle Electrician Relationship Specialty Start Date End Date Luciana Winters MD [address] [place] [address] PCP - General Family Medicine 03/28/18 [place] 03/20/24 08/06/24 Leena 08/01/24 documented as of this encounter
--- OUTSIDE RECORDS SUMMARY | 2024-11-19 18:07 | XMS_ITS | Encounter Summary ---
Author Organization [facility] Address [address] [place] [address] Care Team Providers Care Pharmacy Technician Trainee Name Role Phone Simon Katz MD Primary Care Provider [phone] Encounter Details Date Type Department Care Team (Late st Contact Info) Description 03/07/[address] [facility] - Main Lab [address] [place] [address] Simon Katz MD 38 [facility] [address] [place], [address] Essential (primary) hypertension; Poikiloderma vasculare atrophicans; [...] LAB CHEMISTRY METHOD 03/07/2024 12:26 PM EST [facility] Potassium 3.8 3.5 - 5.5 mmol/L LAB CHEMISTRY METHOD 03/07/2024 12:26 PM [facility] Chloride 109 96 - 110 mmol/L LAB CHEMISTRY METHOD 03/07/2024 12:26 PM [facility] CO2 26 21 - 32 mmol/L LAB CHEMISTRY METHOD 03/07/2024 12:26 PM [facility] Anion Gap 9 3 - 11 LAB CHEMISTRY METHOD 03/07/2024 12:26 PM [facility] Glucose 111(H) 70 - 100 mg/dL LAB CHEMISTRY METHOD 03/07/2024 12:26 PM [facility] BUN 16 5 - 25 mg/dL LAB CHEMISTRY METHOD 03/07/2024 12:26 PM [facility] Creatinine 0.72 0.50 - 1.10 mg/dL LAB CHEMISTRY METHOD 03/07/2024 12:26 PM [facility] eGFR 91 >=60 mL/min/1. 73m2 LAB CHEMISTRY METHOD 03/07/2024 12:26 PM [facility] Comment:Calculation based on the Chronic Kidney Disease Epidemiology Collaboration (CKD-EPI) equation refit without adjustment for race. BUN/Creatinine Ratio 22.2 LAB CHEMISTRY METHOD 03/07/2024 12:26 PM [facility] Calcium 9.2 8.5 - 10.5 mg/dL LAB CHEMISTRY METHOD 03/07/2024 12:26 PM [facility] Blood Venous blood specimen / Unknown Venipuncture / Unknown 03/07/2024 8:35 AM EST 03/07/2024 10:21 AM EST us Simon Katz MD LAB BLOOD ORDERABLES Final Resul t [facility] [address] [place] [address], * (ABNORMAL) Complete blood count (03/07/2024 8:35 AM EST) [facility] WBC 5.4 4.8 - 10.8 K/mcL LAB HEMETOLOGY METHOD 03/07/2024 12:32 PM [facility] RBC 3.70(L) 3.80 - 4.80 M/mcL LAB HEMETOLOGY METHOD 03/07/2024 12:32 PM [facility] Hemoglobin 10.7(L) 11.5 - 16.0 g/dL LAB HEMETOLOGY METHOD 03/07/2024 12:32 PM [facility] Hematocrit 33.9(L) 35.0 - 47.0 % LAB HEMETOLOGY METHOD 03/07/2024 12:32 PM [facility] MCV 92.4 79.0 - 98.0 FL LAB HEMETOLOGY METHOD 03/07/2024 12:32 PM [facility] MCH 29.2 27.0 - 32.0 pcg LAB HEMETOLOGY METHOD 03/07/2024 12:32 PM [facility] MCHC 31.6(L) 32.0 - 37.0 g/dL LAB HEMETOLOGY METHOD 03/07/2024 12:32 PM [facility] RDW 13.3 11.0 - 15.0 % LAB HEMETOLOGY METHOD 03/07/2024 12:32 PM [facility] Platelets 164 130 - 400 K/mcL LAB HEMETOLOGY METHOD 03/07/2024 12:32 PM [facility] MPV 13.2(H) 7.0 - 11.0 FL LAB HEMETOLOGY METHOD 03/07/2024 12:32 PM [facility] NRBC 0.0 <1.0 % LAB HEMETOLOGY METHOD 03/07/2024 12:32 PM [facility] NRBC Absolute 0.00 <0.10 K/mcL LAB HEMETOLOGY METHOD 03/07/2024 12:32 PM EST [facility] Blood Venous blood specimen / Unknown Venipuncture / Unknown 03/07/2024 8:35 AM EST 03/07/2024 10:21 AM EST us Simon Katz MD LAB BLOOD ORDERABLES Final Resul t [facility] [address] [place] [address], documented in this encounter Visit Diagnoses Diagnosis Essential (primary) hypertension Unspecified essential hypertension Poikiloderma vasculare atrophicans Encounter for examination for admission to [facility] institution documented in this encounter Care Teams Pharmacy Technician Trainee Relationship Specialty Start Date End Date Simon Katz MD [address] [place] [address], [phone] PCP - General Family Medicine 02/03/24 documented as of this encounter
--- OUTSIDE RECORDS SUMMARY | 2024-11-19 18:07 | XMS_ITS | Encounter Summary ---
Author Organization [facility] Address [address] [place] [address] Care Team Providers Care Short Range Air Defense Artillery Name Role Phone Simon Katz MD Primary Care Provider Encounter Details Date Type Department Care Team (Late st Contact Info) Description 02/29/2024 Lab Requisition [facility] - Main Lab [address] [place] [address] Simon Katz MD [address] [place] [address] [address] [place], [phone] Parkinsonism, unspecified (CMS/HCC V24, CMS/HCC V28) [...] LAB CHEMISTRY METHOD 02/29/2024 12:14 PM EST [facility] Potassium 4.3 3.5 - 5.5 mmol/L LAB CHEMISTRY METHOD 02/29/2024 12:14 PM EST [facility] Chloride 112(H) 96 - 110 mmol/L LAB CHEMISTRY METHOD 02/29/2024 12:14 PM [facility] CO2 25 21 - 32 mmol/L LAB CHEMISTRY METHOD 02/29/2024 12:14 PM [facility] Anion Gap 7 3 - 11 LAB CHEMISTRY METHOD 02/29/2024 12:14 PM [facility] Glucose 66(L) 70 - 100 mg/dL LAB CHEMISTRY METHOD 02/29/2024 12:14 PM [facility] BUN 23 5 - 25 mg/dL LAB CHEMISTRY METHOD 02/29/2024 12:14 PM [facility] Creatinine 0.74 0.50 - 1.10 mg/dL LAB CHEMISTRY METHOD 02/29/2024 12:14 PM [facility] eGFR 88 >=60 mL/min/1. 73m2 LAB CHEMISTRY METHOD 02/29/2024 12:14 PM [facility] Comment:Calculation based on the Chronic Kidney Disease Epidemiology Collaboration (CKD-EPI) equation refit without adjustment for race. BUN/Creatinine Ratio 31.1 LAB CHEMISTRY METHOD 02/29/2024 12:14 PM [facility] Calcium 8.9 8.5 - 10.5 mg/dL LAB CHEMISTRY METHOD 02/29/2024 12:14 PM [facility] AST (SGOT) 22 10 - 42 unit/L LAB CHEMISTRY METHOD 02/29/2024 12:14 PM [facility] ALT (SGPT) 24 10 - 60 unit/L LAB CHEMISTRY METHOD 02/29/2024 12:14 PM [facility] Alkaline Phosphatase 36(L) 42 - 121 unit/L LAB CHEMISTRY METHOD 02/29/2024 12:14 PM [facility] Total Protein 5.8(L) 6.0 - 8.0 g/dL LAB CHEMISTRY METHOD 02/29/2024 12:14 PM [facility] Albumin 3.2 3.2 - 5.0 g/dL LAB CHEMISTRY METHOD 02/29/2024 12:14 PM [facility] Total Bilirubin 0.4 0.0 - 1.4 mg/dL LAB CHEMISTRY METHOD 02/29/2024 12:14 PM [facility] Blood Venous blood specimen / Unknown Venipuncture / Unknown 02/29/2024 6:57 AM EST 02/29/2024 10:58 AM EST us Simon Katz MD LAB BLOOD ORDERABLES Final Resul t [facility] [address] [place] [address], [place] [phone] * (ABNORMAL) Complete blood count (02/29/2024 6:57 AM EST) WBC 5.6 4.8 - 10.8 K/mcL LAB HEMETOLOGY METHOD 02/29/2024 11:46 AM [facility] RBC 3.70(L) 3.80 - 4.80 M/[facility] LAB HEMETOLOGY METHOD 02/29/2024 11:46 AM [facility] Hemoglobin 10.8(L) 11.5 - 16.0 g/dL LAB HEMETOLOGY METHOD 02/29/2024 11:46 AM [facility] Hematocrit 34.4(L) 35.0 - 47.0 % LAB HEMETOLOGY METHOD 02/29/2024 11:46 AM [facility] MCV 93.7 79.0 - 98.0 FL LAB HEMETOLOGY METHOD 02/29/2024 11:46 AM [facility] MCH 29.4 27.0 - 32.0 pcg LAB HEMETOLOGY METHOD 02/29/2024 11:46 AM [facility] MCHC 31.4(L) 32.0 - 37.0 g/dL LAB HEMETOLOGY METHOD 02/29/2024 11:46 AM EST [facility] RDW 13.4 11.0 - 15.0 % LAB HEMETOLOGY METHOD 02/29/2024 11:46 AM [facility] Platelets 203 130 - 400 K/mcL LAB HEMETOLOGY METHOD 02/29/2024 11:46 AM [facility] MPV 13.6(H) 7.0 - 11.0 FL LAB HEMETOLOGY METHOD 02/29/2024 11:46 AM EST [facility] NRBC 0.0 <1.0 % LAB HEMETOLOGY METHOD 02/29/2024 11:46 AM [facility] NRBC Absolute 0.00 <0.10 K/mcL LAB HEMETOLOGY METHOD 02/29/2024 11:46 AM [facility] Blood Venous blood specimen / Unknown Venipuncture / Unknown 02/29/2024 6:57 AM EST 02/29/2024 10:58 AM EST us Simon Katz MD LAB BLOOD ORDERABLES Final Resul t [facility] [address] [place] [address], documented in this encounter Visit Diagnoses Diagnosis Parkinsonism, unspecified (CMS/HCC V24, CMS/HCC V28) documented in this encounter Care Teams Short Range Air Defense Art[employer] Relationship Specialty Start Date End Date Simon Katz MD [address] [place] [address] [address] [place], [phone] PCP - General Family Medicine 02/03/24 documented as of this encounter
--- OUTSIDE RECORDS SUMMARY | 2024-11-19 18:07 | XMS_ITS | Encounter Summary ---
Author Organization [employer] Address [address] [place] [address] Care Team Providers Care Road Cleaner Name Role Phone Luciana Winters MD Primary Care Provider Reason for Referral * Consultation (Urgent) - Denied Specialty Diagnoses / Procedures Referred By Contjose t Referred To Contact Diagnoses Basal cell carcinoma (BCC) of skin of other part of face Underweight Undifferentiated schizophrenia (CMS/HCC) Luciana Winters MD [address] [place] [address] Phone: tel: fax: [address] [address] Phone: tel: fax: Referral ID Status Reason Start Date Expiration Date V isits Requested Visits Authorized [id number] Denied Specialty Services Required 09/21/2024 09/21/2025 1 0 Encounter Details Date Type Department Care Team (Late st Contact Info) Description 09/21/2024 Orders Only [facility] MEDICINE [address] [place] [address] [phone] Luciana Winters MD [address] [place] [address] [phone] Basal cell carcinoma (BCC) of skin of [...] Description 12/18/2024 1:30 PM EDT Office Visit [facility] MEDICINE [address] [place], [place] [phone] Luciana Winters MD [address] [place] [address] Scheduled Referrals Name Type Priority Associated Diagnoses [...] documented as of this encounter Care Teams Road Cleaner Relationship Specialty Start Date End Date Luciana Winters MD [address] [place] [address] PCP - General Family Medicine 03/28/18 Leena 08/01/24 documented as of this encounter
--- OUTSIDE RECORDS SUMMARY | 2024-11-19 18:08 | XMS_ITS | Clinical Summary ---
Author Organization [facility] Address [address] [place] [address] Phone Care Team Providers Care Bullet Assembly Press Operator Name Role Phone Simon Katz MD Primary Care Provider [phone] Social History Tobacco Use Types Packs/Day Years [...] Panel) 02/03/2024 Colorectal Cancer Screening: Colonoscopy 02/03/2024 Falls Risk Assessment 02/03/2024 Hepatitis C Screening 02/03/2024 Medicare Annual Wellness Visit 02/03/2024 Osteoporosis Screening (Bone Density Screening) 02/03/2024 Social Influencers of Health Screening 02/03/2024 Depression Screening 03/28/2024 Influenza Vaccine (#1) 2024 Hypertension/CHF/CAD Annual BMP Blood Test 03/14/2025 [...] mmol/L LAB CHEMISTRY METHOD 03/14/2024 11:31 AM [facility] Potassium 3.7 3.5 - 5.5 mmol/L LAB CHEMISTRY METHOD 03/14/2024 11:31 AM [facility] Chloride 110 96 - 110 mmol/L LAB CHEMISTRY METHOD 03/14/2024 11:31 AM [facility] CO2 25 21 - 32 mmol/L LAB CHEMISTRY METHOD 03/14/2024 11:31 AM [facility] Anion Gap 7 3 - 11 LAB CHEMISTRY METHOD 03/14/2024 11:31 AM [facility] Glucose 92 70 - 100 mg/dL LAB CHEMISTRY METHOD 03/14/2024 11:31 AM [facility] BUN 18 5 - 25 mg/dL LAB CHEMISTRY METHOD 03/14/2024 11:31 AM [facility] Creatinine 0.76 0.50 - 1.10 mg/dL LAB CHEMISTRY METHOD 03/14/2024 11:31 AM [facility] eGFR 85 >=60 mL/min/1. 73m2 LAB CHEMISTRY METHOD 03/14/2024 11:31 AM EST [facility] LAB Comment:Calculation based on the Chronic Kidney Disease Epidemiology Collaboration (CKD-EPI) equation refit without adjustment for race. BUN/Creatinine Ratio 23.7 LAB CHEMISTRY METHOD 03/14/2024 11:31 AM EST [facility] Calcium 9.1 8.5 - 10.5 mg/dL LAB CHEMISTRY METHOD 03/14/2024 11:31 AM EST [facility] Blood Venous blood specimen / Unknown Venipuncture / Unknown 03/14/2024 6:22 AM EST 03/14/2024 10:16 AM EST us Simon Katz MD LAB BLOOD ORDERABLES Final Resul t [facility] [address] [place] [address], from Last 3 Months or Most Recently Relevant to Health Maintenance Insurance MEDICAID - [place] MEDICARE Care Teams Bullet Assembly Press Operator Relationship Specialty Start Date End Date Simon Katz MD [address], [phone] PCP - General Family Medicine 02/03/24
--- OUTSIDE RECORDS SUMMARY | 2024-11-19 18:08 | XMS_ITS | Encounter Summary ---
Author Organization [employer] Address [address] [place] [address] [address] [place] [address] Care Team Providers Care Contact Worker Lithography Name Role Phone Luciana Winters MD Primary Care Provider [phone] Encounter Details Date Type Department Care Team (Latest Contact Info) Description 05/04/[address] [facility] CONVERSIONS Dental, Provider, DDS Social History Tobacco [...] Description 12/18/2024 1:30 PM EDT Office Visit [facility] MEDICINE [address] [place] [address] Luciana Winters MD [address] [place] [phone] documented as of this encounter Visit Diagnoses Not on filedocumented in this encounter Care Teams Contact Worker Lithography Relationship Specialty Start Date End Date Luciana Winters MD [address] [place] [phone] PCP - General Family Medicine 03/28/18 [facility] 03/20/24 08/06/24 Leena 08/01/24 documented as of this encounter
--- OUTSIDE RECORDS SUMMARY | 2024-11-19 18:08 | XMS_ITS | Encounter Summary ---
Author Organization [facility] Address [address] [place] [address] Care Team Providers Care Tawer Name Role Phone Simon Katz MD Primary Care Provider [phone] Encounter Details Date Type Department Care Team (Late st Contact Info) Description 03/13/2024 Lab Requisition [facility] - Main Lab [address] [place] [address] Simon Katz MD [address] [facility] [address] [place], [address] Essential (primary) hypertension Social History Tobacco [...] LAB CHEMISTRY METHOD 03/14/2024 11:31 AM EST [facility] Potassium 3.7 3.5 - 5.5 mmol/L LAB CHEMISTRY METHOD 03/14/2024 11:31 AM EST [facility] Chloride 110 96 - [...] [facility] Comment:Calculation based on the [...] t [facility] [address] [place] [address], * (ABNORMAL) Complete blood count (03/14/2024 6:22 AM EST) WBC 6.3 4.8 - 10.8 K/mcL LAB HEMETOLOGY METHOD 03/14/2024 11:04 AM EST [facility] RBC 3.80 3.80 - [...] MD LAB BLOOD ORDERABLES Final Resul t [facility] [address] [place] [address], documented in this encounter Visit Diagnoses Diagnosis Essential (primary) hypertension Unspecified essential hypertension documented in this encounter Care Teams Tawer Relationship Specialty Start Date End Date Simon aKtz MD [address] [place] [address] [address] [place], [phone] PCP - General Family Medicine 02/03/24 documented as of this encounter
--- OUTSIDE RECORDS SUMMARY | 2024-11-19 18:08 | XMS_ITS | Encounter Summary ---
Author Organization [employer] Address [address] [place] [address] [address] [place] [address] Care Team Providers Care Senior Java Architect Name Role Phone Luciana Winters MD Primary Care Provider [phone] Reason for Visit * Reason Onset Date Comments Referral 09/03/2022 Encounter Details Date Type Department Care Team ([facility] st Contact Info) Description 09/03/2022 Telephone [facility] MEDICINE [address] [place] [address] Luciana Winters MD [address] [place] [address] Referral Social History Tobacco Use Types Packs/Day [...] of shaking andshuffling. Please contact Loree at [phone] Ext [phone] documented in this encounter Plan of Treatment Upcoming Encounters Date Type Department Care Team (Late st Contact Info) Description 12/18/2024 1:30 PM EDT Office Visit [facility] MEDICINE [address] [place] [address] Luciana Winters MD [address] [place] [address] documented as of this encounter Visit Diagnoses Not on filedocumented in this encounter Care Teams Senior Java Architect Relationship Specialty Start Date End Date Luciana Winters MD [address] [place] [address] PCP - General Family Medicine 03/28/18 Jannette 03/20/24 08/06/24 Leena 08/01/24 documented as of this encounter
--- OUTSIDE RECORDS SUMMARY | 2024-11-19 18:08 | XMS_ITS | Encounter Summary ---
Author Organization [facility] Address [address] [place] [address] Care Team Providers Care Applications Analyst Name Role Phone Simon Katz MD Primary Care Provider [phone] Encounter Details Date Type Department Care Team (Late st Contact Info) Description 03/20/2024 Lab Requisition [facility] - Main Lab [address] [facility] [place] [address] Simon Katz MD [address] [place] [address] [address] [place], [phone] Essential (primary) hypertension Social History Tobacco Use [...] hypertension documented in this encounter Care Teams Applications Analyst Relationship Specialty Start Date End Date Simon Katz MD 38 [facility] [address] [place], [phone] PCP - General Family Medicine 02/03/24 documented as of this encounter
--- OUTSIDE RECORDS SUMMARY | 2024-11-19 18:09 | XMS_ITS | Encounter Summary ---
Author Organization [employer] Address [address] [place] [address] [address] [place] [address] Care Team Providers Care Contaminated Land Consultant Name Role Phone Luciana Winters MD Primary Care Provider [phone] Reason for Visit * Reason Onset Date Comments Hospital Follow-up 10/18/2024 Encounter Details Date Type Department Care Team ([facility] st Contact Info) Description 10/18/2024 Telephone [facility] MEDICINE [address] [place], [place] [phone] Luciana Winters MD [address] [place], [place] [phone] Hospital Follow-up Social History Tobacco Use Types Packs/Day Years [...] encounter Miscellaneous Notes * Telephone Encounter - Annamarie Anthony - 10/18/2024 10:49 AM EDT Tc from pt requesting a HDF appt. [facility] Date of admission: 09/28 Discharge date: 10/22 Diagnosed: psychosis *Send message to [place] Clinical Care Coordinators Margarito at [facility] called to set up HDF if need to call before Tuesday contact [phone] documented in this encounter Plan of Treatment Upcoming Encounters Date Type Department Care Team (Late st Contact Info) Description 12/18/2024 1:30 PM EDT Office Visit [facility] MEDICINE [address] [place] [address] Luciana Winters MD [address] [place] [address] documented as of this encounter Visit Diagnoses Not on filedocumented in this encounter Additional Health Concerns Assessment Noted Time PHQ-9 Depression Total Score: 3 12/20/19 24 1:29 PM EDT documented as of this encounter Care Teams Contaminated Land Consultant Relationship Specialty Start Date End Date Luciana Winters MD [address] [place] [address] PCP - General Family Medicine 03/28/18 Leena 08/01/24 documented as of this encounter
--- OUTSIDE RECORDS SUMMARY | 2024-11-19 18:09 | XMS_ITS | Encounter Summary ---
Author Organization [employer] Address [address] [place] [address] 7 [place] [address] Care Team Providers Care Wire Puller Name Role Phone Luciana Winters MD Primary Care Provider [phone] Encounter Details Date Type Department Care Team (Late st Contact Info) Description 06/17/[address] [facility] MEDICINE [address] [place] [address] [phone] Luciana Winters MD [address] [place] [address] [phone] Essential hypertension (Primary Dx); Stage 2 chronic [...] 12/18/2024 1:30 PM EDT Office Visit [facility] MEDICINE [address] [place] [address] [phone] Luciana Winters MD [address] [place] [address] [phone] Scheduled Orders Name Type Priority Associated Diagnoses [...] (CMS/HCC) documented in this encounter Care Teams Wire Puller Relationship Specialty Start Date End Date Luciana Winters MD [address] [place] [phone] PCP - General Family Medicine 03/28/18 Jannette 03/20/24 08/06/24 Leena 08/01/24 documented as of this encounter
--- OUTSIDE RECORDS SUMMARY | 2024-11-19 18:09 | XMS_ITS | Encounter Summary ---
Author Organization [employer] Address [address] [place] [address] 7t [place] [address] Care Team Providers Care Leaf Coverer Name Role Phone Luciana Winters MD Primary Care Provider [phone] Reason for Visit * Reason Onset Date Comments Hospital Follow-up 10/26/2024 Encounter Details Date Type Department Care Team ([facility] st Contact Info) Description 10/26/2024 Telephone [facility] MEDICINE [address] [place], [place] [phone] Luciana Winters MD [address] [place], [place] [phone] Hospital Follow-up Social History Tobacco Use Types [...] encounter Miscellaneous Notes * Telephone Encounter - Bianca Hardy - 10/26/2024 10:56 AM EDT Tc from pt requesting a HDF appt. Hospital: [facility] Date of admission: 10/02 Discharge date: 10/22 Diagnosed: Schizoaffective disorder *Send message to [place] Clinical Care Coordinators documented in this encounter Plan of Treatment Upcoming Encounters Date Type Department Care Team (Late st Contact Info) Description 12/18/2024 1:30 PM EDT Office Visit [facility] MEDICINE [address] [place] [address] Luciana Winters MD [address] [place] [address] documented as of this encounter Visit Diagnoses Not on filedocumented in this encounter Additional Health Concerns Assessment Noted Time PHQ-9 Depression Total Score: 3 12/20/19 1:29 PM EDT documented as of this encounter Care Teams Leaf Coverer Relationship Specialty Start Date End Date Luciana Winters MD [address] [place] [address] PCP - General Family Medicine 03/28/18 Leena 08/01/24 documented as of this encounter
--- OUTSIDE RECORDS SUMMARY | 2024-11-19 18:09 | XMS_ITS | Clinical Summary ---
Author Organization [employer] Address [address] [place] [address] Care Team Providers Care Engineer Of System Development Name Role Phone Luciana Winters MD Primary Care Provider [phone] Allergies No known active allergies Medications * This document contains information received from the source organization and may not represent a complete record from that organization. carbidopa-lev odopa (Sinemet) 25-100 MG tablet TAKE 1 TABLET BY MOUTH IN THE MORNING AND AT NOON 11/24/19 23 Active ammonium lactate (Amlactin) 12 % cream Apply topically if needed for dry skin. 385 g 1 12/20/19 24 025 Active simvastatin (Zocor) 20 MG tablet Take 1 tablet (20 mg) by mouth in the evening. 90 tablet 3 04/03/19 25 Active cholecalcifer ol (Vitamin D3) 25 MCG (1000 UT) tablet Take 1 tablet (25 mcg) by mouth in the morning. 90 tablet 3 04/03/19 25 Active benztropine (Cogentin) 0.5 MG tablet Take 1 tablet by mouth Once per day. 08/01/19 25 Active Rexulti 2 MG tablet Take 1 tablet by mouth Once per day. 07/31/19 25 Active memantine (Namenda) 5 MG tablet Take 1 tablet by mouth Once per day. 08/01/19 25 Active metoprolol tartrate (Lopressor) 25 MG tablet Take 1 tablet by mouth 2 times daily. 06/29/19 25 Active traZODone (Desyrel) 100 MG tablet Take 1 tablet by mouth at bedtime. 08/01/19 25 Active melatonin 3 MG tablet Take 2 tablets by mouth at bedtime. 10/23/19 25 Active LORazepam (Ativan) 0.5 MG tablet Take 1 tablet by mouth 3 times daily. 10/23/19 25 Active alendronate (Fosamax) 70 MG tablet TAKE 1 TABLET WEEKLY DIRECTED. SEE PACKAGE FOR ADDITIONAL INSTRUCTIONS 12 tablet 11/02/19 25 Active alendronate (Fosamax) 70 MG tablet TAKE 1 TABLET WEEKLY DIRECTED. SEE PACKAGE FOR ADDITIONAL INSTRUCTIONS 12 tablet 1 04/03/19 25 025 Discontinued Melatonin 3 MG capsule Take 2 capsules by mouth at bedtime. 025 Discontinued(M ed list cleanup (will not trigger notification to Pharmacy)) nitrofurantoi n, macrocrystal- monohydrate, (Macrobid) 100 MG capsule Take 1 capsule (100 mg) by mouth 2 times daily for 5 days. 10 capsule 11/04/19 25 025 Active Problems Problem Noted Date Diagnosed Date Recurrent UTI 11/03/2024 Assessment & Plan (11/05/2024 12:35 PM EDT): - 3 episodes of UTI, confirmed by urine culture since June 2024, most recent urine culture on 11/01/2024 - Organism: pansensitive E. Coli. - Received TMP/SMX in June and September 2024 - Start Tx with nitrofurantoin - Discussed about further evaluation with renal / bladder US and urology referral; patient would like to consider after jury duty is cancelled Constipation 11/03/2024 Assessment & Plan (11/03/2024 7:27 AM EDT): - continue senna-docusate PTSD (post-traumatic stress disorder) 11/03/2024 Cognitive impairment 08/25/2024 Assessment & Plan (11/03/2024 7:25 AM EDT): - June 2024: Memory/cog: MOCA 16/30 (severe impairments in executive function/visuo spatial (0/5), recall (0/5), language fluency (0/1) with intact attention, orientation (except for date/day), naming, abstraction). ACL 4.2 - Continue memantine Assessment & Plan (08/25/2024 4:03 PM EDT): - June 2024: Memory/cog: MOCA (severe impairments in executive function/visuo spatial (0/5), recall (0/5), language fluency (0/1) with intact attention, orientation (except for date/day), naming, abstraction). ACL 4.2 - Continue memantine Unsteady gait 08/25/2024 Overview (08/25/2024): - patient fell twice when she was in the hospital - will write script for rollator since she was using it during the hospital stay. 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 Assessment & Plan (2024 6:57 AM EDT): - incidental finding on CT scan in 2023 - asymptomatic currently - patient may not have a capacity to give informed consent at this time - patient would like to discuss after her jury duty is cancelled Assessment & Plan (08/25/2024 3:52 PM EDT): - incidental finding on CT scan - asymptomatic currently - patient may not have a capacity to give informed consent at this time - will discuss in near future Assessment & Plan (04/09/2024 5:47 AM EST): - incidental finding on CT scan - asymptomatic currently - patient may not have a capacity to give informed consent at this time - will discuss in near future Lung nodules 04/09/2024 Assessment & Plan (2024 6:44 AM EDT): - CT in Dec 2023: multiple solid pulmonary nodules, many with tree-in-bud/peribronchial cluster distribution most suggestive of infectious/inflammatory etiology, though malignancy not excluded. - CT in 05/15/24 showed a new right upper lobe nodule Assessment & Plan (08/25/2024 3:59 PM EDT): - CT in Dec 2023: multiple solid pulmonary nodules, many with tree-in-bud/peribronchial cluster distribution most suggestive of infectious/inflammatory etiology, though malignancy not excluded. - CT in 05/15/24 showed a new right upper lobe nodule; check the status of CT- scan Assessment & Plan (05/21/2024 1:18 PM EST): - CT in Dec 2023: multiple solid pulmonary nodules, many with tree-in-bud/peribronchial cluster distribution most suggestive of infectious/inflammatory etiology, though malignancy not excluded. - CT in 05/15/24 showed a new right upper lobe nodule; will repeat in 3-6 months. Assessment & Plan (04/09/2024 5:49 AM EST): - CT in Dec 2023: multiple solid pulmonary nodules, many with tree-in-bud/peribronchial cluster distribution most suggestive of infectious/inflammatory etiology, though malignancy not excluded. - will follow up with CT scan Protein calorie malnutrition 12/30/2023 Assessment & Plan (11/05/2024 12:32 PM EDT): - prescribed nutritional supplement - continue vitamin supplementation, periodic lab, and frequent meal and increase calorie-dense food intake Assessment & Plan (08/25/2024 3:50 PM EDT): - prescribed nutritional supplement; will check its status - continue vitamin supplementation, periodic lab, and frequent meal and increase calorie-dense food intake Assessment & Plan (05/21/2024 1:09 PM EST): - prescribed nutritional supplement; will check its status - continue vitamin supplementation, periodic lab, and frequent meal and increase calorie-dense food intake Assessment & Plan (04/09/2024 5:50 AM EST): - prescribed nutritional supplement; will check its status - continue vitamin supplementation, periodic lab, and frequent meal and increase calorie-dense food intake Assessment & Plan (12/30/2023 5:08 AM EDT): - will prescribe nutritional supplement - continue vitamin supplementation, periodic lab, and frequent meal and increase calorie-dense food intake Weight loss 07/25/2023 Assessment & Plan (11/05/2024 12:32 PM EDT): -Plateau since July 2024 -Continue nutritional supplements. Assessment & Plan (08/25/2024 3:50 PM EDT): -Discussed about nutritional supplements. -Patient was initially hesitant about script for Boost or Ensure. Patient is now accepting prescription. Assessment & Plan (12/30/2023 5:04 AM EDT): -Discussed about nutritional supplements. -Patient was initially hesitant about script for Boost or Ensure. Patient is now accepting prescription. Assessment & Plan (07/25/2023 11:07 AM EDT): -Discussed about nutritional supplements. -Patient will call after trying nutritional supplements of her favorite flavor. Basal cell carcinoma (BCC) of skin of face 09/22 Assessment & Plan (11/09/2024 1:41 AM EDT): - Followed by Dr. Soriano, last seen in Dec 2022 - s/p excision of the forehead lesion by Dr. Wright in 2021 - continue sun protection -Pt states she is not interested in going to see chemical process operator at this time. Assessment & Plan (08/21/2024 8:50 AM EDT): - Followed by Dr. Soriano, last seen in Dec 2022 - s/p excision of the forehead lesion by Dr. Wright in 2021 - continue sun protection -Pt states she is not interested in going to see chemical process operator at this time. Assessment & Plan (05/21/2024 1:17 PM EST): - Followed by Dr. Soriano, last seen in Dec 2022 - s/p excision of the forehead lesion by Dr. Wright in 2021 - continue sun protection -Pt states she is not interested in going to see chemical process operator at this time. Assessment & Plan (04/09/2024 5:52 AM EST): [...] sun protection Osteoporosis 09/22/2022 Assessment & Plan (11/09/2024 1:41 AM EDT): -DEXA scan in Mar 2021 with lowest T score on -3.4. pt start alendronate 70 mg weekly since Mar 2021. -continue weight bearing exercises -DEXA on 10/26/23 T-score -0.9 - continue adequate vitamin D and calcium intake Assessment & Plan (08/21/2024 8:50 AM EDT): -DEXA scan in Mar 2021 with lowest T score on -3.4. pt start alendronate 70 mg weekly since Mar 2021. -continue weight bearing exercises -DEXA on 10/26/23 T-score -0.9 - continue adequate vitamin D and calcium intake Assessment & Plan (05/21/2024 1:09 PM EST): -DEXA scan in Mar 2021 with lowest T score on -3.4. pt start alendronate 70 mg weekly since Mar 2021. -continue weight bearing exercises -DEXA on 10/26/23 T-score -0.9 - continue adequate vitamin D and calcium intake Assessment & Plan (04/09/2024 5:47 AM EST): [...] bearing exercises Tremor 09/22/2022 Assessment & Plan (11/03/2024 7:26 AM EDT): - EPS / TD / Parkinsonism - continue Benztropine - continue carbidopa-levodopa - evaluated by neurologist, Dr. Patterson in Oct 2022 Dx Parkinsonism. Rx carbidopa-levodopa. - consider MRI, although pt will probably refuse - check whether she has a follow up with neurologist Assessment & Plan (08/25/2024 3:58 PM EDT): - EPS / TD / Parkinsonism - continue Benztropine - continue carbidopa-levodopa - evaluated by neurologistDr. Patterson in Oct 2022 Dx Parkinsonism. Rx carbidopa-levodopa. - consider MRI, although pt will probably refuse - check whether she has a follow up with neurologist Assessment & Plan (05/21/2024 1:09 PM EST): - EPS / TD - continue Benztropine - evaluated by neurologist, Dr. Patterson in Oct 2022 Dx Parkinsonism. Rx carbidopa-levodopa. - consider MRI, although pt will probably refuse - continue carbidopa-levodopa - check whether she has a follow up with neurologist Assessment & Plan (04/09/2024 5:53 AM EST): [...] TD - continue Benztropine - called pt's S provider and left a message to call back so that we can discuss treatment plan - consider MRI Essential hypertension 01/30/2015 Assessment & Plan (11/05/2024 12:22 PM EDT): -Goal BP < 130/80 per ACC/AHA guideline (Treatment threshold >= 140/90 ) -Continue working on lifestyle modifications -Recommended self-monitoring BP. -On metoprolol tartrate 25 mg bid. Advised to hold metoprolol if SBP is less than 100 or HR < 55 -Treatment Hx: Previously elevated BP, white-coat HTN, BP seems to have improved with recent weight loss. Previously on amlodipine, which was switched during last hospitalization. Metoprolol was discontinued during recent hospitalization. Assessment & Plan (08/25/2024 3:53 PM EDT): -Goal BP < 150/90 per JNC-8 and < 130/80 per ACC/AHA guideline (Treatment threshold >= 140/90 ) -Continue working on lifestyle modifications -Recommended self-monitoring BP. -On metoprolol tartrate 25 mg bid. Advised to hold metoprolol if SBP is less than 100 -Treatment Hx: Previously elevated BP, white-coat HTN, BP seems to have improved with recent weight loss. Previously on amlodipine, which was switched during last hospitalization. Metoprolol was discontinued during recent hospitalization. Assessment & Plan (05/21/2024 1:20 PM EST): -Goal BP < 150/90 per JNC-8 and < 130/80 per ACC/AHA guideline (Treatment threshold >= 140/90 ) -Continue working on lifestyle modifications -Recommended self-monitoring BP. -On metoprolol succinate 25 mg bid. Advised to hold metoprolol if SBP is less than 110 -Treatment Hx: Previously elevated BP, white-coat HTN, BP seems to have improved with recent weight loss. Previously on amlodipine, which was switched during last hospitalization. Metoprolol was discontinued during recent hospitalization. Assessment & Plan (04/09/2024 5:35 AM EST): [...] adenoma of colon 01/30/2015 Assessment & Plan (08/25/2024 3:51 PM EDT): - GI Dr. Boswell, last seen in Oct 2023 - 2006 tubular adenoma - 2012 tubular adenoma and hyperplastic polyp - 10/21/17 hyperplastic polyp - Pt declines a referral to GI for another colonoscopy Assessment & Plan (12/30/2023 5:01 AM EDT): [...] wait until her license issue is solved Transaminitis 11/05/2014 Assessment & Plan (05/29/2024 10:22 AM EST): - elevated AST/ALT when she was hospitalized after missing and found to be hypothermic in Dec 2023 - Most recent imaging: Limited US in Dec 2023 showed Multiple stones and sludge identified in the gallbladder. Evaluated by GI. - FIB4 index 7.74 - Will consider evaluating with US; patient is hesitant Dyslipidemia 12/03/2011 Assessment & Plan (11/09/2024 1:40 AM EDT): -Most recent fasting lipid profile: 08/15/24 Total cholesterol 132; TG 73; HDL 45; LDL 73 -Current medications: simvastatin 20 mg daily; consider switching to atorvastatin - Treatment history: Previously on fenofibrate, which was discontinued - Emphasized the importance of lifestyle modification. Assessment & Plan (08/25/2024 3:50 PM EDT): -Most recent fasting lipid profile: 08/15/24 Total cholesterol 132; TG 73; HDL 45; LDL 73 -Current medications: simvastatin 20 mg daily; consider switching to atorvastatin - Treatment history: Previously on fenofibrate, which was discontinued - Emphasized the importance of lifestyle modification. Assessment & Plan (05/21/2024 1:09 PM EST): -Most recent fasting lipid profile: 09/06/23 Total cholesterol 135; TG 50; HDL 47; LDL 78 -Current medications: simvastatin 20 mg daily - Treatment history: Previously on fenofibrate, which was discontinued - Emphasized the importance of lifestyle modification. Assessment & Plan (04/09/2024 5:52 AM EST): [...] modification. Undifferentiated schizophrenia 12/03/2011 Assessment & Plan (11/03/2024 7:29 AM EDT): -Differential Dx Schizoaffective disorder -Hx 2nd daughter committed a suicide in 1999 -Hospitalization for attempted self-harm in Nov 2022 and February 2023 in [facility] psych unit -Recent hospitalization at [facility] psych 09/28-10/22/2024. Schizophrenia. Catatonia. PTSD. Acute UTI. -Hospitalization frequency: every 1-2 mo. -S providers: [facility] at [address] [place] [address] -Seeing counselor monthly and psych prescriber every 2-3 mo -Current medications: brexpiprazole 2 mg daily; trazodone 100 mg qhs; benztropine 0.5 mg qhs; melatonin 6 mg qhs -Treatment history: Until recent hospitalization in June 2024, patient was taking: Risperidone 1 mg in the morning, 2 mg in the evening; benztropine 0.5 mg twice daily; quetiapine 50 mg at bedtime; Previously tried medications: Perphenazine 8 mg daily; Benztropine, Quetiapine -Contacted patient's behavioral health service provider, Loree. She will reach out to patient's roommate. Assessment & Plan (08/25/2024 3:57 PM EDT): -Differential Dx Schizoaffective disorder -Hx 2nd daughter committed a suicide in 1999 -Hospitalization for attempted self-harm in Nov 2022 and February 2023 in [facility] psych unit -Recent hospitalization at [facility] psych 07/04/24-07/31/24. Psychosis. PTSD. Acute UTI. -S providers: [facility] at [address] [place] [address] -Seeing counselor monthly and psych prescriber every 2-3 mo -Current medications: brexpiprazole 2 mg daily; trazodone 100 mg qhs; benztropine 0.5 mg qhs; melatonin 6 mg qhs -Treatment history: Until recent hospitalization in June 2024, patient was taking: Risperidone 1 mg in the morning, 2 mg in the evening; benztropine 0.5 mg twice daily; quetiapine 50 mg at bedtime; Previously tried medications: Perphenazine 8 mg daily; Benztropine, Quetiapine -Contacted patient's behavioral health service provider, Loree. She will reach out to patient's roommate. Assessment & Plan (05/21/2024 1:10 PM EST): -Differential Dx Schizoaffective disorder -Hx 2nd daughter committed a suicide in 1999 -Hospitalization for attempted self-harm in Nov 2022 and February 2023 in [facility] psych unit -S providers: [facility] at [address] [place] [address] -Seeing counselor monthly and psych prescriber every 2-3 mo -Most recent medications prescribed by [facility] provide: Risperidone 1 mg in the morning, 2 mg in the evening; benztropine 0.5 mg twice daily; quetiapine 50 mg at bedtime; -Previously tried medications: Perphenazine 8 mg daily; Benztropine, Quetiapine -Contacted patient's behavioral health service provider, Loree. She will reach out to patient's roommate. Assessment & Plan (04/09/2024 5:51 AM EST): -Differential Dx Schizoaffective disorder -Hx 2nd daughter committed a suicide in 1999 -Hospitalization for attempted self-harm in Nov 2022 and February 2023 in [facility] psych unit -[facility] providers: [facility] at [address] [place] [address]. [place], [place] -Seeing counselor monthly and psych prescriber every 2-3 mo -Most recent medications prescribed by [facility] provide: Risperidone 1 mg in the morning, [...] in Nov 2022 and February 2023 in [facility] psych unit -[facility] providers: [facility] at [address] [place] [address]. [place], [place] -Seeing counselor monthly and psych prescriber every 2-3 mo -Current medication: Risperidone 1 mg in the morning, 2 mg in the evening; benztropine 0.5 mg twice daily; quetiapine 50 mg at bedtime; -Previous medications: Perphenazine 8 mg daily; Benztropine, Quetiapine -Continue current medication and recommendations by [facility] providers. Assessment & Plan (09/13/2023 8:48 AM EDT): -Differential Dx Schizoaffective disorder -Hx 2nd daughter committed a suicide in 1999 -Hospitalization for attempted self-harm in Nov 2022 and February 2023 in [facility] psych unit -[facility] providers: [facility] at [address] [place] [address] -Seeing counselor monthly and psych prescriber every 2-3 mo -Current medication: Risperidone 1 mg in the morning, 2 mg in the evening; benztropine 0.5 mg twice daily; quetiapine 50 mg at bedtime; -Previous medications: Perphenazine 8 mg daily; Benztropine, Quetiapine -Continue current medication and recommendations by [facility] providers. Assessment & Plan (07/25/2023 9:17 PM EDT): -Differential Dx Schizoaffective disorder -Hx 2nd daughter committed a suicide in 1999 -Hospitalization for attempted self-harm in Nov 2022 and February 2023 in [facility] psych unit -[facility] providers: [facility] at [address] [place] [address] -Seeing counselor monthly and psych prescriber every 2-3 mo -Current medication: Risperidone 1 mg in the morning, 2 mg in the evening; benztropine 0.5 mg twice daily; quetiapine 50 mg at bedtime; -Previous medications: Perphenazine 8 mg daily; Benztropine, Quetiapine -Continue current medication and recommendations by [facility] providers. Assessment & Plan (03/12/2023 5:57 PM EST): -Differential Dx Schizoaffective disorder -Hx 2nd daughter committed a suicide in 1999 -Hospitalization recently for attempted self-harm in Nov 2022 in [facility] psych unit -[facility] providers: [facility] at [address] [place] [address] -Seeing counselor monthly and psych prescriber every 2-3 mo -Current medication: Risperidone 1 mg in the morning, 2 mg in the evening; benztropine 0.5 mg twice daily; quetiapine 50 mg at bedtime; -Previous medications: Perphenazine 8 mg daily; Benztropine, Quetiapine -Continue current medication and recommendations by [facility] providers. Assessment & Plan (11/01/2022 3:45 PM EDT): -Hx 2nd daughter committed a suicide in 1999 -[facility] providers: [facility] at [address] [place] [address] -Seeing counselor monthly and psych prescriber every 2-3 mo -Current medication: Quetiapine; benztropine for EPS -Previous medication: Perphenazine 8 mg daily for many years, changed in 2022 -Continue current medication and recommendations by [facility] providers. Assessment & Plan (09/22/2022 6:35 AM EDT): -Hx 2nd daughter committed a suicide in 1999 -[facility] providers: [facility] at [address] [place] [address] -Seeing counselor monthly and psych prescriber every 2-3 mo -Current medication: Perphenazine 8 mg daily; Benztropine, Quetiapine -Continue current medication and recommendations by [facility] providers. Vitamin D deficiency 12/03/2011 Assessment & Plan (08/25/2024 3:50 PM EDT): - continue vitamin D Assessment & Plan (12/20/2023 2:27 PM EDT): - continue vitamin D Assessment & Plan (07/25/2023 11:04 AM EDT): - continue vitamin D Assessment & Plan (03/12/2023 5:52 PM EST): - continue vitamin D Assessment & Plan (11/01/2022 3:43 PM EDT): - continue vitamin D Stage 3a chronic kidney disease 10/13/2011 Assessment & Plan (11/05/2024 12:34 PM EDT): - usually CKD II- IIIa - previously followed by scraper operator annually - no longer seeing scraper operator - continue periodic lab - avoid nephrotoxins - keep adequate nutritional and fluid intake Assessment & Plan (08/25/2024 3:52 PM EDT): - usually CKD II- IIIa - previously followed by scraper operator annually - no longer seeing scraper operator - continue periodic lab - avoid nephrotoxins Assessment & Plan (05/21/2024 1:08 PM EST): - usually CKD II- IIIa - previously followed by scraper operator annually - no longer seeing scraper operator - 08/18/22 BUN 20, Scr 1.08, eGFR 57, K 3.9, Bicarb 26 -12/31/22 eGFR > 60 - continue periodic lab - avoid nephrotoxins Assessment & Plan (12/20/2023 2:27 PM EDT): - usually CKD II- IIIa - previously followed by scraper operator annually - no longer seeing scraper operator - 08/18/22 BUN 20, Scr 1.08, eGFR 57, K 3.9, Bicarb 26 -12/31/22 eGFR > 60 - continue periodic lab - avoid nephrotoxins Assessment & Plan (09/13/2023 8:46 AM EDT): - usually CKD II- IIIa - previously followed by scraper operator annually - no longer seeing scraper operator - 08/18/22 BUN 20, Scr 1.08, eGFR 57, K 3.9, Bicarb 26 -12/31/22 eGFR > 60 - continue periodic lab - avoid nephrotoxins Assessment & Plan (07/25/2023 9:14 PM EDT): - usually CKD II- IIIa - previously followed by scraper operator annually - no longer seeing scraper operator - 08/18/22 BUN 20, Scr 1.08, eGFR 57, K 3.9, Bicarb 26 -12/31/22 eGFR > 60 - continue periodic lab - avoid nephrotoxins Assessment & Plan (03/12/2023 6:13 PM EST): - usually CKD II- IIIa - previously followed by scraper operator annually - no longer seeing scraper operator - 08/18/22 BUN 20, Scr 1.08, eGFR 57, K 3.9, Bicarb 26 -12/31/22 eGFR > 60 - continue periodic lab - avoid nephrotoxins Assessment & Plan (11/01/2022 3:42 PM EDT): - usually CKD II- IIIa - previously followed by scraper operator annually - no longer seeing scraper operator - 08/18/22 BUN 20, Scr 1.08, eGFR 57, K 3.9, Bicarb 26 - continue periodic lab - avoid nephrotoxins Assessment & Plan (09/22/2022 6:14 AM EDT): - usually CKD II- IIIa - previously followed by scraper operator annually - no longer seeing scraper operator - check lab today Polyp of colon 02/24/2007 Resolved Problems Problem Noted Date Diagnosed Date Resolved Date Tachycardia 09/13/2023 2024 Assessment & Plan (09/13/2023 10:19 AM EDT): -HR 120 09/13/2023 -pt did not want to have any testing done -discussed referring for Holter monitor incase pt changes her mind Encounters Date Type Department Care Team Description 11/05/2024 9:00 AM EDT Office Visit [address] [address] Luciana Winters MD Recurrent UTI (Primary Dx); Undifferentiated schizophrenia (CMS/HCC); Cognitive impairment; Tremor; Age-related osteoporosis without current pathological fracture; Essential hypertension; Dyslipidemia; Constipation, unspecified constipation type; PTSD (post-traumatic stress disorder); Basal cell carcinoma (BCC) of skin of other part of face; Weight loss; Moderate protein-calorie malnutrition (CMS/HCC); Porcelain gallbladder; Stage 3a chronic kidney disease (CMS/HCC); Lung nodules 11/05/2024 Travel 11/02/[address] [address] Luciana Winters MD chart prep 11/01/2024 Orders Only GENERIC EXTERNAL DATA DEPARTMENT Provider, Generic External Data 10/31/[address] [address] Luciana Winters MD 10/26/2024 Patient Outreach [facility] [address] [place], [place] [phone] Luciana Winters MD Transition Of Care (Tcm) (HDF scheduled. ) 10/26/[address] [address] Luciana Winters MD Hospital Follow-up 10/18/2024 Patient Outreach [facility] [address] [place] [address] [phone] Luciana Winters MD Transition Of Care (Tcm) (HDF- scheduled with Kalpana from [facility] and [facility] screening needs to be complete it in office) ) 10/18/[address] [address] Luciana Winters MD Hospital Follow-up 09/27/[address] [address] Luciana Winters MD chart prep 09/24/[address] [address] Luciana Winters MD Call Back Request; Medication Question 09/21/2024 Orders Only [address] [address] Luciana Wintesr MD Basal cell carcinoma (BCC) of skin of other part of face (Primary Dx); Underweight; Undifferentiated schizophrenia (CMS/HCC) 09/18/[address] [address] Luciana Winters MD ER Follow-up 09/06/[address] [address] Luciana Winters MD Durable Medical Equipment (DME: Boost) 08/27/[address] [address] Luciana Winters MD DME Rollator 08/27/[address] [address] Maribeth Marte RN 08/21/2024 9:30 AM EDT Office Visit [address] [address] Luciana Winters MD Stage 3a chronic kidney disease (CMS/HCC) (Primary Dx); Essential hypertension; Dyslipidemia; Age-related osteoporosis without current pathological fracture; Basal cell carcinoma (BCC) of skin of other part of face; Undifferentiated schizophrenia (CMS/HCC); Lung nodules; Tremor; Dietary counseling; Exercise counseling; Underweight; Weight loss; Moderate protein-calorie malnutrition (CMS/HCC); Vitamin D deficiency; Tubular adenoma of colon; Porcelain gallbladder; Cognitive impairment; Failure to thrive (child); Unsteady gait 08/21/2024 Travel from Last 3 Months Immunizations Immunization Administration Dates Next Due Hep B, adult [...] Access Q2 Not on file 12/20/2023 Comments No Sex and Gender Information Value Date Recorded Sex Assigned at Female 01/25/2022 10:19 AM EDT Legal Sex Female 10:19 AM EDT Gender Identity Female 01/25/2022 10:19 AM EDT Sexual Orientation Straight 01/25/2022 10 :19 AM EDT Last Filed Vital Signs Vital Sign Reading Time Taken Comments Blood Pressure 104/60 11/05/2024 9:08 AM EDT Pulse 62 11/05/2024 9:08 AM EDT Temperature 36.1 C (96.9 F) 11/05/2024 9:08 AM EDT Respiratory Rate 18 11/05/2024 9:08 AM EDT Oxygen Saturation 98% 11/05/2024 9:08 AM EDT Inhaled Oxygen Concentration - - Weight 48.3 kg (106 lb 6.4 oz) 11/05/2024 9:08 A M EDT Height 167.6 cm (5' 6 ) 11/05/2024 9:08 AM EDT Body Mass Index 17.17 11/05/2024 9:08 AM EDT Plan of Treatment Upcoming Encounters Date Type Department Care Team (Late st Contact Info) Description 12/18/2024 1:30 PM EDT Office Visit [facility] [address] [place], [place] [phone] Luciana Winters MD [address] [place] [address] Health Maintenance Due Date Last Done Comments CT Colonography 1955 Dental Oral Exam 1955 Dental Prophylaxis 1955 Dental X-Ray: Bitewings 1955 Dental X-Ray: Full Mouth 1955 FIT DNA/Cologuard 1955 FIT 1955 FOBT 1955 Sigmoidoscopy 1955 Derm Melanoma Skin Check 05/12/1956 Colonoscopy 10/21/2022 10/21/2017 Colorectal Cancer Screening 10/21/2022 COVID-19 Vaccine ( season) 2023 08/13/2021, 03/31/2021, 06/24/2020, Additional history exists Influenza Vaccine (#1) 2024 , 02/28/2023, 03/30/2022, Additional history exists Depression Screening 12/19/2024 12/20/2023, 12/20/19 SDOH Screening 12/19/2024 12/20/2023 Mammogram 02/21/2025 02/21/2023, 01/27, 03/31/2021, Additional history exists Alcohol/Substance Use Screening 04/03/2025 04/03/2024 Tobacco Screening 11/05/2025 11/05/2024 Lipid Panel 08/15/2029 08/15/2024, 08/26, 10/26/2022, Additional history exists RSV Patients and Patients Aged 60 years or older (1 - 1-dose 75+ series) 11/09/2030 DTaP/Tdap/Td Vaccines (3 - Td or Tdap) 02/28/2033 02/28/2023, 03/24/2011, 04/01/2006 Hepatitis B Vaccines Completed 11/29/2006, 07/15/2006, 06/10/2006 Zoster Vaccines Completed 03/09/2019, 12/26, 11/19/2015 Hepatitis C Screening Completed 08/18/2022 Pneumococcal Vaccine: 50+ Years Completed 02/28/2023 HIB Vaccines Aged Out No longer eligi [...] Procedure Name Priority Date/Time Associated Diagnosis Comments CULTURE, URINE, ROUTINE Routine 11/01/2024 12:00 AM EDT LIPID PANEL WITH REFLEX TO DIRECT LDL Routine 08/15/2024 11:02 AM EDT Dyslipidemia BI MAMMOGRAM SCREENING TOMOSYNTHESIS BILATERAL Routine 02/21/2023 12:51 PM EST HEPATITIS C AB W/REFL TO HCV RNA, QN, PCR Routine 08/18/2022 8:36 AM EDT Unintentional weight loss HM COLONOSCOPY Routine 10/21/2017 from Last 3 Months or Most Recently Relevant to Health Maintenance Results * Culture, Urine, Routine (11/01/2024 12:00 AM EDT) Urine Urine specimen obtained by clean catch procedure / Unknown 11/01/2024 11/01/2024 Comment:[facility] - 11/03/2024 8:07 AM EDT Escherichia coli Quant > 100,000 cfu/mL Escherichia coli: Ampicillin <=2(S) Escherichia coli: Cefazolin (Urine) <=1(S) Escherichia coli: Cefepime <=0.12(S) Escherichia coli: Ceftriaxone <=0.25(S) Escherichia coli: Ciprofloxacin <=0.06(S) Escherichia coli: Gentamicin <=1(S) Escherichia coli: Nitrofurantoin <=16(S) Escherichia coli: Trimethoprim/Sulfamethoxazole <=20(S) Specimen Source: Urine clean catch us Generic External Data Provider LAB MICROBIOLOGY - GENERAL ORDERABLES Final Result Performing Organization Address City/[facility] de Phone Number [facility] [address] [place] [address] [phone] * Lipid Panel with Reflex to Direct LDL (08/15/2024 11:02 AM EDT) Triglycerides 73 <150 mg/dL [facility] Comment:Desirable Triglyceri de: less than 150 mg/dLBorderline High Triglyceride 150-199 mg/dLHigh Triglyceride: 200-499 mg/dLVery High Triglyceride: greater than or equal to 5OO mg/dL Cholesterol 132 <200 mg/dL [facility] Comment:Desirable Cholestero l: less than 200 mg/dLBorderline High Cholesterol: 200-239 mg/dLHigh Cholesterol: greater than 239 mg/dL LDL Cholesterol Calculated 73 <100 mg/dL [facility] Comment:Desirable LDL: less than 100 mg/dLNear Optimal/Above Optimal LDL: 110- 129 mg/dLBorderline High LDL: 130-159 mg/dLHigh LDL: 160-189 mg/dLVery High LDL: greater than or equal to 190 mg/dL HDL Cholesterol 45 >40 mg/dL [facility] Comment:Desirable HDL: great er than 40 mg/dL Note: This HDL assay may give artificially low results in patients with liver disease. Blood 08/15/2024 11:0 2 AM EDT 08/15/2024 1:06 PM EDT Luciana Winters MD LAB BLOOD ORDERABLES Final Resul t Performing Organization Address City/[facility]/ZIP Co de Phone Number [facility] [address] [place] [address] [phone] * BI Mammogram Screening Tomosynthesis Bilateral (02/21/2023 12:51 PM EST) Anatomical Region Laterality Modality Breast Bilateral Mammography 02/21/2023 12:5 1 PM EST Narrative 03/04/2023 2:27 PM EST [facility] [address] [place] [id number] Mammography Report Signed Patient: Melia Harp MR#: [id number] : 1955 Acct:[id number] Age/Sex: 67 / F ADM Date: 02/21/23 Loc: [facility] Attending Dr: Luciana Winters MD Ordering Physician: Luciana Winters MD Results: 1Negative Date of Service: 02/21/23 Follow Up: 1 Year From Orig ina Mammogram Procedure(s): MM tomosynthesis screening BI Accession Number(s): [id number] cc: Luciana Winters MD EXAMINATION: MM SCREENING [...] in OV> 03/04/23 1423 DD/ 1251 TD/TT: Nutrition Coordinator: Procedure Note Donotuseinterpreter, Image - 03/04/2023 [facility] [address] [place] [address] Mammography Report Signed Patient: Melia Harp MMR#: [id number] : 1955cct:[id number] Age/Sex: 67 / FADM Date: 02/21/23 Loc: [facility] Attending Dr: Luciana Winters MD Ordering Physician: Luciana Winters MDResults: 1Negative Date of Service: 02/21/23Follow Up: 1 Year From [facility] ina Mammogram Procedure(s): MM tomosynthesis screening BI Accession Number(s): [id number] cc: Luciana Winters MD EXAMINATION: MM SCREENING [...] in OV> 03/04/23 1423 DD/ 1251 TD/TT: Nutrition Coordinator: Luciana Winters MD IM BI PROCEDURES Final Result * Hepatitis C Antibody with Reflex to HCV, RNA, Quantitative, Real-Time PCR (08/18/2022 8:36 AM EDT) Hepatitis C Antibody NON-REACT CEASAR NON-REACT CEASAR Sneaky Gamest Index 0.02 <1.00 IDx Comment: HCV antibody was non-reactive. There is no laboratory evidence of HCV infection. In most cases, no further action is required. However, if recent HCV exposure is suspected, a test for HCV RNA (test code 03235) is suggested. For additional information please refer to http://education.[employer]/faq/NGV89v5 (This link is being provided for informational/ educational purposes only.) Blood Venous blood specimen / Unknown 08/18/2022 8:36 AM EDT 08/18/2022 8:38 AM EDT Narrative [facility] - 08/19/2022 4:44 PM EDT FASTING:YES FASTING: YES [facility] GEOPHYSICAL MANAGER LAB BLOOD ORDERABLES Final Re sult [facility] [address], [place] [address] [facility] [address] [place] [address] * Colonoscopy (10/21/2017) Colonoscopy Normal Normal Historical Provider MD HEALTH MAINTENANCE Final Result from Last 3 Months or Most Recently Relevant to Health Maintenance [place] [id number] Care Teams Engineer Of System Development Relationship Specialty Start Date End Date Luciana Winters MD [address] [place] [address] PCP - General Family Medicine 03/28/18 Leena 08/01/24
--- OUTSIDE RECORDS SUMMARY | 2024-11-19 18:09 | XMS_ITS | Encounter Summary ---
Author Organization [employer] Address [address] [place] [address] [place] [address] Care Team Providers Care Supervisor Covering And Lining Name Role Phone Luciana Winters MD Primary Care Provider [phone] Reason for Visit * Reason Comments Med Refill Encounter Details Date Type Department Care Team (Late st Contact Info) Description 06/03/2022 Refill [facility] [address] [place], [place] [phone] Randee Sweeney MD [address] [place] [address] [phone] Hypertension, unspecified type; Hypertriglyceridemia Social History Tobacco [...] Description 12/18/2024 1:30 PM EDT Office Visit [facility] [address] [place], [place] [phone] Luciana Winters MD [address] [place], [place] [phone] documented as of this encounter Visit Diagnoses Diagnosis Hypertension, unspecified type Hypertriglyceridemia Pure hyperglyceridemia documented in this encounter Care Teams Supervisor Covering And Lining Relationship Specialty Start Date End Date Luciana Winters MD [address] [place] [address] PCP - General Family Medicine 03/28/18 Jannette 03/20/24 08/06/24 Leena 08/01/24 documented as of this encounter
--- OUTSIDE RECORDS SUMMARY | 2024-11-19 18:09 | XMS_ITS | Encounter Summary ---
Author Organization [employer] Address [address] [place] [address] [address] [place] [address] Care Team Providers Care Data Coordinator Name Role Phone Luciana Winters MD Primary Care Provider [phone] Reason for Visit * Reason Onset Date Comments Medication Question 03/20/2024 Encounter Details Date Type Department Care Team ([facility] Contact Info) Description 03/20/2024 Telephone [facility] [address] [place], [place] [phone] Luciana Winters MD [address] [place] [address] Medication Question Social History Tobacco Use Types [...] [facility] the [facility] Mir[facility] 7.5 mg as [...] 7.5 mg.) If any questions contact Nora: [phone] documented in this encounter Plan of Treatment Upcoming Encounters Date Type Department Care Team ([facility] st Contact Info) Description 12/18/2024 1:30 PM EDT Office Visit [facility] [address] [place] [address] Luciana Winters MD [address] [place] [address] documented as of this encounter Visit Diagnoses Not on filedocumented in this encounter Additional Health Concerns Assessment Noted Time PHQ-9 Depression Total Score: 3 12/20/19 24 1:29 PM EDT documented as of this encounter Care Teams Data Coordinator Relationship Specialty Start Date End Date Luciana Winters MD [address] [place] [address] PCP - General Family Medicine 03/28/18 YeniWarren 03/20/24 08/06/24 Leena 08/01/24 documented as of this encounter
--- OUTSIDE RECORDS SUMMARY | 2024-11-19 18:09 | XMS_ITS | Encounter Summary ---
Author Organization [employer] Address [address] [facility] 7[address] [place] [address] Care Team Providers Care Furniture Fabricator Name Role Phone Luciana Winters MD Primary Care Provider [phone] Encounter Details Date Type Department Care Team ([facility] st Contact Info) Description 03/22/2024 Orders Only [facility] [address] [place] [address] Luciana Winters MD [address] [place] [address] Social History Tobacco Use Types Packs/Day Years [...] Description 12/18/2024 1:30 PM EDT Office Visit [facility] [address] [place] [address] Luciana Winters MD [address] [place] [address] documented as of this encounter Visit Diagnoses Not on filedocumented in this encounter Additional Health Concerns Assessment Noted Time PHQ-9 Depression Total Score: 3 12/20/19 24 1:29 PM EDT documented as of this encounter Care Teams Furniture Fabricator Relationship Specialty Start Date End Date Luciana Winters MD [address] [place] [address] PCP - General Family Medicine 03/28/18 [facility] 03/20/24 08/06/24 Leena 08/01/24 documented as of this encounter
--- OUTSIDE RECORDS SUMMARY | 2024-12-19 20:00 | XMS_ITS | Clinical Summary ---
Author Organization Unknown Care Team Providers Care Theatrical Scenic Designer Name Role Phone DEONTE GONZALEZ, MELISSA Unavailable Unavailable TESHA RN, ILIANA Unavailable Unavailable Payers Payer Name Policy Type Policy Number Effective Date Expira tion Date ON DEMAND MEDICARE - [facility] BILLING - ABN [id number] [place] - ABN [id number] Problems Condition Name Condition Details Condition Category Status Onset Date Resolution Date Last Treatment Date Treating Clinician Comments SCHIZOAFFECT CEASAR DISORDER, UNSPECIFIED Active 7-04 00:00: 00 PARANOID SCHIZOPHRENI A Active 8-04 00:00: 00 ANXIETY DISORDER, UNSPECIFIED Active 8-04 00:00: 00 OTHER DRUG INDUCED SECONDARY PARKINSONISM Active 8-04 00:00: 00 ESSENTIAL (PRIMARY) HYPERTENSION Active 8-04 00:00: 00 HYPERLIPIDEM IA, UNSPECIFIED Active 8-04 00:00: 00 PERSONAL HISTORY OF SUICIDAL BEHAVIOR Active 8-04 00:00: 00 OTHER AMNESIA Active 8-04 00:00: 00 ABNORMAL WEIGHT LOSS Active 8-04 00:00: 00 Allergies, Adverse Reactions, Alerts Allergy Name Allergy Type Status Severity Reaction(s) Onset Date Inactive Date Treating Clinician Comments NKA Propensity to adverse reactions Active 2024-09 04:11:5 6 Medications Ordered Medication Name Filled Medication Name Start Date Stop Date Current Medication? Ordering Clinician Indication Dosage Frequency Signature (SIG) Comments Components alendronate 70 mg tablet 08-01 00:00: 00 10-21 23:59 :00 No [id number] 1 tablet WEEKLY 1 tablet WEEKLY (route: oral) Med Classific ation: Endocrine benztropine 0.5 mg tablet 08-01 00:00: 00 10-21 23:59 :00 No [id number] 1 tablet BEDTIME 1 tablet BEDTIME (route: oral) Med Classific ation: Central Nervous System Agents carbidopa 25 mg-levodopa 100 mg tablet 08-01 00:00: 00 10-21 23:59 :00 No [id number] 1 tablet DAILY 1 tablet DAILY (route: oral) Med Classific ation: Central Nervous System Agents melatonin 3 mg tablet 08-01 00:00: 00 10-21 23:59 :00 No [id number] 2 tablet BEDTIME 2 tablet BEDTIME (route: oral) Med Classific ation: Central Nervous System Agents memantine 5 mg tablet 08-01 00:00: 00 10-21 23:59 :00 No [id number] 1 tablet DAILY 1 tablet DAILY (route: oral) Med Classific ation: Cognitive Disorder Therapy metoprolol tartrate 25 mg tablet 08-01 00:00: 00 10-21 23:59 :00 No [id number] 1 tablet 2 TIMES DAILY 1 tablet 2 TIMES DAILY (route: oral) Med Classific ation: Cardiovas cular Therapy Agents Rexulti 2 mg tablet 08-01 00:00: 00 10-21 23:59 :00 No [id number] 1 tablet DAILY 1 tablet DAILY (route: oral) Med Classific ation: Central Nervous System Agents Senna Laxative 8.6 mg tablet 08-01 00:00: 00 10-21 23:59 :00 No [id number] 1 tablet 2 TIMES DAILY 1 tablet 2 TIMES DAILY (route: oral) Med Classific ation: Gastroint estinal Therapy Agents simvastatin 20 mg tablet 08-01 00:00: 00 10-21 23:59 :00 No [id number] 1 tablet DAILY 1 tablet DAILY (route: oral) Med Classific ation: Cardiovas cular Therapy Agents trazodone 100 mg tablet 08-01 00:00: 00 10-21 23:59 :00 No [id number] 1 tablet BEDTIME 1 tablet BEDTIME (route: oral) Med Classific ation: Central Nervous System Agents alendronate 70 mg tablet 10-22 00:00: 00 Yes [id number] 1 tablet WEEKLY 1 tablet WEEKLY (route: oral) Med Classific ation: Endocrine benztropine 0.5 mg tablet 10-22 00:00: 00 Yes [id number] 1 tablet BEDTIME 1 tablet BEDTIME (route: oral) Med Classific ation: Central Nervous System Agents carbidopa 25 mg-levodopa 100 mg-entacapo ne 200 mg tablet 10-22 00:00: 00 Yes [id number] 1 tablet 2 TIMES DAILY 1 tablet 2 TIMES DAILY (route: oral) Med Classific ation: Central Nervous System Agents lorazepam 0.5 mg tablet 10-22 00:00: 00 11-05 23:59 :00 No [id number] 1 tablet 3 TIMES DAILY 1 tablet 3 TIMES DAILY (route: oral) Med Classific ation: Central Nervous System Agents melatonin 3 mg tablet 10-22 00:00: 00 Yes [id number] 2 tablet BEDTIME 2 tablet BEDTIME (route: oral) Med Classific ation: Central Nervous System Agents memantine 5 mg tablet 10-22 00:00: 00 Yes [id number] 1 tablet DAILY 1 tablet DAILY (route: oral) Med Classific ation: Cognitive Disorder Therapy metoprolol tartrate 25 mg tablet 10-22 00:00: 00 Yes [id number] 1 tablet 2 TIMES DAILY 1 tablet 2 TIMES DAILY (route: oral) Med Classific ation: Cardiovas cular Therapy Agents mupirocin 2 % topical ointment 10-22 00:00: 00 Yes [id number] Per instruc tions 2 TIMES DAILY Per instructio ns 2 TIMES DAILY (route: topical) Med Classific ation: Dermatolo gical Rexulti 2 mg tablet 10-22 00:00: 00 Yes [id number] 1 tablet DAILY 1 tablet DAILY (route: oral) Med Classific ation: Central Nervous System Agents Senna Plus 8.6 mg-50 mg tablet 10-22 00:00: 00 Yes [id number] constipatio n 1 tablet NEEDED 1 tablet NEEDED (route: oral) Med Classific ation: Gastroint estinal Therapy Agents simvastatin 20 mg tablet 10-22 00:00: 00 Yes [id number] 1 tablet BEDTIME 1 tablet BEDTIME (route: oral) Med Classific ation: Cardiovas cular Therapy Agents trazodone 100 mg tablet 10-22 00:00: 00 Yes [id number] 1 tablet BEDTIME 1 tablet BEDTIME (route: oral) Med Classific ation: Central Nervous System Agents lorazepam 0.5 mg tablet 11-05 00:00: 00 11-12 23:59 :00 No [id number] 1 tablet 2 TIMES DAILY 1 tablet 2 TIMES DAILY (route: oral) Med Classific ation: Central Nervous System Agents lorazepam 0.5 mg tablet 11-13 00:00: 00 Yes [id number] 1 tablet EVERY PM 1 tablet EVERY PM (route: oral) Med Classific ation: Central Nervous System Agents nitrofurant oin monohydrate /macrocryst als 100 mg capsule 11-05 00:00: 00 11-10 23:59 :00 No [id number] 1 capsule 2 TIMES DAILY 1 capsule 2 TIMES DAILY (route: oral) Med Classific ation: Genitouri nary Therapy Rexulti 0.25 mg tablet 11-05 00:00: 00 Yes [id number] 1 tablet DAILY 1 tablet DAILY (route: oral) Med Classific ation: Central Nervous System Agents Immunizations Ordered Immunization Name Filled Immunization Name Date Status Comments Refusal Reason SHINGLES, TIV (INACTIVATED) 2024-10-21 00:00:00 Vital Signs Vital Name Observation Time Observation Value Commen ts Temperature 2024-11-17 10:14:00.000 97.8 [degF] Temperature 2024-11-16 19:46:00.000 98.6 [degF] Temperature 2024-11-15 11:01:00.000 98.6 [degF] Temperature 2024-11-14 13:58:00.000 98.6 [degF] Temperature 2024-11-13 11:18:00.000 98.6 [degF] Temperature 2024-11-12 07:29:00.000 98.6 [degF] Temperature 2024-11-11 10:38:00.000 97.8 [degF] Temperature 2024 10:59:00.000 97.3 [degF] Temperature 2024-11-09 10:30:00.000 97.3 [degF] Temperature 2024-11-08 10:57:00.000 97.8 [degF] Temperature 2024-11-07 10:44:00.000 97.8 [degF] Temperature 2024-11-06 10:48:00.000 97.3 [degF] Temperature 2024-11-05 10:59:00.000 97.5 [degF] Temperature 2024-11-04 11:14:00.000 97.6 [degF] Temperature 2024-11-03 10:48:00.000 97.8 [degF] Temperature 2024-11-02 18:31:00.000 98.6 [degF] Temperature 2024-11-01 19:43:00.000 98.6 [degF] Temperature 2024-10-31 19:50:00.000 98.6 [degF] Temperature 2024-10-30 21:06:00.000 98.6 [degF] Temperature 2024-10-29 15:15:00.000 98.6 [degF] Temperature 2024-10-28 11:03:00.000 97.8 [degF] Temperature 2024-10-27 10:47:00.000 97.6 [degF] Temperature 2024-10-26 17:50:00.000 98.6 [degF] Temperature 2024-10-25 21:11:00.000 98.6 [degF] Temperature 2024-10-24 16:00:00.000 98.6 [degF] Temperature 2024-10-23 11:48:00.000 98.6 [degF] Temperature 2024-10-22 04:09:00.000 98.6 [degF] BMI (%) 2024-10-23 00:10:02.000 18 kg/m2 Height 2024-10-23 00:09:45.000 64 [in_us] Pulse 2024-11-17 10:14:00.000 74 /min Pulse 2024-11-16 19:46:00.000 82 /min Pulse 2024-11-15 11:01:00.000 68 /min Pulse 2024-11-14 13:58:00.000 82 /min Pulse 2024-11-13 11:18:00.000 82 /min Pulse 2024-11-12 07:29:00.000 82 /min Pulse 2024-11-11 10:38:00.000 64 /min Pulse 2024 10:59:00.000 64 /min Pulse 2024-11-09 10:30:00.000 88 /min Pulse 2024-11-08 10:57:00.000 62 /min Pulse 2024-11-07 10:45:00.000 83 /min Pulse 2024-11-06 10:48:00.000 72 /min Pulse 2024-11-05 10:59:00.000 88 /min Pulse 2024-11-04 11:14:00.000 64 /min Pulse 2024-11-03 10:48:00.000 98 /min Pulse 2024-11-02 18:31:00.000 72 /min Pulse 2024-11-01 19:43:00.000 82 /min Pulse 2024-10-31 19:50:00.000 82 /min Pulse 2024-10-30 21:06:00.000 82 /min Pulse 2024-10-29 15:15:00.000 82 /min Pulse 2024-10-27 10:47:00.000 70 /min Pulse 2024-10-26 17:50:00.000 72 /min Pulse 2024-10-25 21:11:00.000 82 /min Pulse 2024-10-24 16:00:00.000 82 /min Pulse 2024-10-23 11:48:00.000 81 /min Pulse 2024-10-22 04:09:00.000 82 /min O2 Saturation (%) 2024-11-09 10:30:00.000 96 % O2 Saturation (%) 2024-11-08 10:58:00.000 96 % O2 Saturation (%) 2024-11-07 10:44:00.000 98 % O2 Saturation (%) 2024-11-05 11:00:00.000 96 % O2 Saturation (%) 2024-11-03 10:49:00.000 98 % Respirations 2024-11-17 10:14:00.000 16 /min Respirations 2024-11-16 19:46:00.000 20 /min Respirations 2024-11-15 11:01:00.000 20 /min Respirations 2024-11-14 13:58:00.000 20 /min Respirations 2024-11-13 11:18:00.000 20 /min Respirations 2024-11-13 09:31:00.000 20 /min Respirations 2024-11-11 10:38:00.000 16 /min Respirations 2024 10:59:00.000 16 /min Respirations 2024-11-09 10:30:00.000 16 /min Respirations 2024-11-08 10:57:00.000 16 /min Respirations 2024-11-07 10:44:00.000 16 /min Respirations 2024-11-06 10:48:00.000 16 /min Respirations 2024-11-05 10:59:00.000 16 /min Respirations 2024-11-04 11:14:00.000 16 /min Respirations 2024-11-03 10:48:00.000 16 /min Respirations 2024-11-02 18:31:00.000 20 /min Respirations 2024-11-01 19:43:00.000 20 /min Respirations 2024-10-31 19:50:00.000 20 /min Respirations 2024-10-30 21:06:00.000 20 /min Respirations 2024-10-29 15:15:00.000 20 /min Respirations 2024-10-28 11:03:00.000 16 /min Respirations 2024-10-27 10:47:00.000 16 /min Respirations 2024-10-26 17:50:00.000 20 /min Respirations 2024-10-25 21:11:00.000 20 /min Respirations 2024-10-24 16:00:00.000 20 /min Respirations 2024-10-23 11:48:00.000 20 /min Respirations 2024-10-22 04:09:00.000 20 /min Weight (lbs) 2024-10-23 00:10:02.000 109 [lb_av] Systolic Blood Pressure 2024-11-17 10:14:00.000 120 mm [Hg] Systolic Blood Pressure 2024-11-16 19:46:00.000 142 mm [Hg] Systolic Blood Pressure 2024-11-15 11:01:00.000 142 mm [Hg] Systolic Blood Pressure 2024-11-14 13:58:00.000 138 mm [Hg] Systolic Blood Pressure 2024-11-13 11:18:00.000 142 mm [Hg] Systolic Blood Pressure 2024-11-12 07:29:00.000 128 mm [Hg] Systolic Blood Pressure 2024-11-11 10:38:00.000 110 mm [Hg] Systolic Blood Pressure 2024 10:59:00.000 110 mm [Hg] Systolic Blood Pressure 2024-11-09 10:30:00.000 118 mm [Hg] Systolic Blood Pressure 2024-11-08 10:57:00.000 108 mm [Hg] Systolic Blood Pressure 2024-11-07 10:44:00.000 100 mm [Hg] Systolic Blood Pressure 2024-11-06 10:48:00.000 97 mm[ Hg] Systolic Blood Pressure 2024-11-05 10:59:00.000 117 mm [Hg] Systolic Blood Pressure 2024-11-04 11:14:00.000 100 mm [Hg] Systolic Blood Pressure 2024-11-03 10:48:00.000 112 mm [Hg] Systolic Blood Pressure 2024-11-02 18:31:00.000 128 mm [Hg] Systolic Blood Pressure 2024-11-01 19:43:00.000 142 mm [Hg] Systolic Blood Pressure 2024-10-31 19:50:00.000 142 mm [Hg] Systolic Blood Pressure 2024-10-30 21:06:00.000 142 mm [Hg] Systolic Blood Pressure 2024-10-29 15:15:00.000 132 mm [Hg] Systolic Blood Pressure 2024-10-28 11:03:00.000 112 mm [Hg] Systolic Blood Pressure 2024-10-27 10:47:00.000 110 mm [Hg] Systolic Blood Pressure 2024-10-26 17:50:00.000 140 mm [Hg] Systolic Blood Pressure 2024-10-25 21:11:00.000 118 mm [Hg] Systolic Blood Pressure 2024-10-24 16:00:00.000 132 mm [Hg] Systolic Blood Pressure 2024-10-23 11:48:00.000 132 mm [Hg] Systolic Blood Pressure 2024-10-22 04:09:00.000 118 mm [Hg] Diastolic Blood Pressure 2024-11-17 10:14:00.000 70 mm [Hg] Diastolic Blood Pressure 2024-11-16 19:46:00.000 82 mm [Hg] Diastolic Blood Pressure 2024-11-15 11:01:00.000 78 mm [Hg] Diastolic Blood Pressure 2024-11-14 13:58:00.000 82 mm [Hg] Diastolic Blood Pressure 2024-11-13 11:18:00.000 88 mm [Hg] Diastolic Blood Pressure 2024-11-12 07:29:00.000 72 mm [Hg] Diastolic Blood Pressure 2024-11-11 10:38:00.000 67 mm [Hg] Diastolic Blood Pressure 2024 10:59:00.000 60 mm [Hg] Diastolic Blood Pressure 2024-11-09 10:30:00.000 60 mm [Hg] Diastolic Blood Pressure 2024-11-08 10:57:00.000 60 mm [Hg] Diastolic Blood Pressure 2024-11-07 10:44:00.000 60 mm [Hg] Diastolic Blood Pressure 2024-11-06 10:48:00.000 75 mm [Hg] Diastolic Blood Pressure 2024-11-05 10:59:00.000 60 mm [Hg] Diastolic Blood Pressure 2024-11-04 11:14:00.000 60 mm [Hg] Diastolic Blood Pressure 2024-11-03 10:48:00.000 60 mm [Hg] Diastolic Blood Pressure 2024-11-02 18:31:00.000 78 mm [Hg] Diastolic Blood Pressure 2024-11-01 19:43:00.000 82 mm [Hg] Diastolic Blood Pressure 2024-10-31 19:50:00.000 72 mm [Hg] Diastolic Blood Pressure 2024-10-30 21:06:00.000 78 mm [Hg] Diastolic Blood Pressure 2024-10-29 15:15:00.000 70 mm [Hg] Diastolic Blood Pressure 2024-10-28 11:03:00.000 60 mm [Hg] Diastolic Blood Pressure 2024-10-27 10:47:00.000 60 mm [Hg] Diastolic Blood Pressure 2024-10-26 17:50:00.000 80 mm [Hg] Diastolic Blood Pressure 2024-10-25 21:11:00.000 72 mm [Hg] Diastolic Blood Pressure 2024-10-24 16:00:00.000 78 mm [Hg] Diastolic Blood Pressure 2024-10-23 11:48:00.000 78 mm [Hg] Diastolic Blood Pressure 2024-10-22 04:09:00.000 72 mm [Hg] Plan of Treatment Planned Activity [...] GOAL FOR HOME HEALTH.] Future Scheduled Test SKILLED NU RSE FOR MEDICATION ADMINISTRATION PER MEDICATION LIST TO BE PERFORMED DAILY [code = SKILLED NURSE FOR MEDICATION ADMINISTRATION PER MEDICATION LIST TO BE PERFORMED DAILY ] Future Scheduled Test PATIENT MA Y HAVE [...] OF PATIENTS MENTAL/BEHAVIORAL STATUS, ASSESS VITAL SIGNS WEEKLY. ALLOW 2 PRNS FOR MEDICATION MANAGEMENT. [code = SKILLED NURSE TO O/A OF PATIENTS MENTAL/BEHAVIORAL STATUS, ASSESS VITAL SIGNS WEEKLY. ALLOW 2 PRNS FOR MEDICATION MANAGEMENT.] Future Scheduled Test SKILLED NU RSE FOR O/A OF ALTERED THOUGHT PROCESS AND/OR DISRUPTION IN COGNITIVE OPERATIONS AND ACTIVITIES [code = SKILLED NURSE FOR O/A OF ALTERED THOUGHT PROCESS AND/OR DISRUPTION IN COGNITIVE OPERATIONS AND ACTIVITIES ] Future Scheduled Test MEDICATION S WILL [...] WEEKLY.] Future Scheduled Test SKILLED NU RSE FOR [...] AND FALL PREVENTION STRATEGIES.] Future Scheduled Test PATIENT GREWAL S A [...] AWARENESS FOR SAFETY AND WILL NOTIFY CLINICAL BURR MILL OPERATOR AND PHYSICIAN/PROVIDER WITH ANY CHANGE IN CONDITION. [code = SKILLED NURSE WILL MAINTAIN SITUATIONAL AWARENESS FOR SAFETY AND WILL NOTIFY CLINICAL BURR MILL OPERATOR AND PHYSICIAN/PROVIDER WITH ANY CHANGE IN CONDITION.] Goal Patient Goal - I WANT TO GET BETTER Goal Provider Goal - A PLAN OF CARE WILL BE ESTABLISHED THAT MEETS PATIENT'S HALFWAY NEEDS AND INCLUDES PATIENT GOAL FOR HOME HEALTH. Goal Provider Goal - PATIENT WILL COMPLY WITH MEDICATION WHEN NURSE ADMINISTERS THROUGHOUT CERTIFICATION PERIOD. Goal Provider Goal - [...] PERIOD. Goal Provider Goal - PATIENT WILL HAVE [...] SELF AND OTHERS THROUGHOUT THE CERTIFICATION PERIOD. Progress Notes Progress Notes <paragraph>[Visit Date: 2024 by MARK KHAN RN]:</paragraph><paragraph>11/17/24 HALFWAY VISIT MADE TO ASSESS MENTAL HEALTH STATUS SAFETY MEDICATION COMPLIANCE. A.M. MEDICATION ADMINISTERED WITH DIRECT OBSERVATION PERIOD BEDTIME MEDS PREFILLED. PATIENT HAS COMPLETED BUT TAPER FROM [employer]. PATIENT CALM AND COOPERATIVE PATIENT HAS NOT BEEN PICKING AT HER CUTICLES MUCH NO SIGNS OF INFECTION ...</paragraph> Encounters Start Date/Time End Date/Time Encounter Type Admission Type Attending [facility] Care Department Encounter ID Discharge Date Discharge Status Discharge Condition Discharge Reason Percent Goals Met 2024-10-22 00:00:00 2024-12-20 00:00:00 Outpatient ILIANA [facility] [id number]
== END 2024-11-19 16:32 | disposition home or self-care (01) ==
LOC: HO.ED 16:25
PROVIDERS: Emergency Provider Emergency Medicine; PCP Family Medicine
DX: S60.311A Abrasion of right thumb, initial encounter (principal); X58.XXXA Exposure to other specified factors, initial encounter; Y93.9 Activity, unspecified; Y92.9 Unspecified place or not applicable; Y99.8 Other external cause status
CPT/HCPCS: 99282

== ENCOUNTER 2024-11-24 10:03 | Emergency (ER) | payer MEDICARE, MEDICAID, SELFPAY ==
--- OUTSIDE RECORDS SUMMARY | 2017-04-08 10:05 | XMS_ITS | Continuity of Care Document ---
Author Organization [place] [employer] [facility] Address [address] [place] [address] Phone Care Team Providers Care Partition Setter Name Role Phone Unavailable Unavailable Unavailable Allergies, Adverse Reactions, Alerts Substance Reaction Status Criticality DIPHENHYDRAMINE HCL Itching(moderate) Active No Information soap Itching(mild) Active No Information povidone-iodine Itching(mild) Active No Informat ion Medications Medication Instructions Dosage Effective Dates (start - stop) Status Comments ranitidine 150 mg tablet take 1 tablet by oral route once daily in the evening - Active valacyclovir 1 gram tablet take 2 tablet by oral route every 12 hours x 1 day at onset of symptoms - Active valacyclovir 1 gram tablet take 1 tablet by oral route every 12 hours x 7 days - Active lansoprazole 30 mg capsule,delayed release take 1 capsule by oral route every day before a meal 30 MG - Active Co Q-10 300 mg capsule Take one capsule by oral route daily - Active Klor-Con M20 mEq tablet,extended release take 1 tablet by oral route every day with food 20 MEQ - Active lisinopril 20 mg-hydrochlorothiazi de 12.5 mg tablet take 1 tablet by oral route every day 1.00 tablet - Active red yeast rice 600 mg [...] Location Reason(s) For Visit Diagnoses Date Provider [facility], [address], [place], [place], [id number], tel:[phone] [facility] No Information 8 No Information [facility], [address], [place], [place], [id number], tel:[phone] [facility] hypertension (chief complaint)ast hma (chief complaint)TRAVIS D (chief complaint)col d sores (chief complaint) Essential (primary) hypertensionGERD w/o esophagitisUnspecifie d asthma, uncomplicatedHerpes simplex labialis 7 No Information [facility], [address], [place], [place], [id number], tel:[phone] [facility] Establish care (chief complaint)Hyp ertension (chief complaint)TRAVIS D (chief complaint)ast hma (chief complaint) Essential (primary) hypertensionGERD w/o esophagitisUnspecifie d asthma, uncomplicated 7 No Information [facility], [address], [place], [place], [id number], tel:[phone] [facility] Essential (primary) hypertensionUnspecifi ed asthma, uncomplicated 7 No Information [facility], [address], [place], [place], [id number], tel:[phone] [facility] Cough (chief complaint)hyp ertension (chief complaint)TRAVIS D (chief complaint) Bronchopneumonia, unspecified organismGERD w/o esophagitis 7 Raad Alfaro. [facility] [address] [place], [place], [id number], [place]. tel:[phone] Family History Family Member Type Diagnosis Age At Onset No Information Payers Payer name Insurance type Covered libertarian ID Authoriza tibailey(s) [employer] O [id number] Social History Type Description Quantity Date Captured Comments Sex Female Smoking Status No Information Chief Complaint And Reason For Visit No Information Plan Of Treatment Date Type Action Status Goal Diabetes screening. Due on due Goal ECG. Due on due Goal Glucose. Due on due Goal Colonoscopy. Due on due Goal Tdap. Due on due Goal Lipid Panel. Due on due Goal Influenza vaccine. Due on due Goal H&P. Due on due Goal Td vaccine. Due on due Goal Depression screening. Due on due Goal Zoster vaccine. Due on due Goal FOBT. Due on due Goal Spirometry. Due on 17 due Goal Pneumo (2 yrs or older) (PPV 23). Due on due Goal Pneumo (2 yrs or older) (PPV 23). Due on due Goal Diabetes screening. Due on due Goal Glucose. Due on due Goal ECG. Due on due Goal Spirometry. Due on 17 due Goal Pneumo (2 yrs or older) (PPV 23). Due on due Goal Spirometry. Due on due Goal ECG. Due on due Goal Glucose. Due on due Goal Diabetes screening. Due on due History Of Present Illness Encounter Date Complaint History Of Prese nt Illness GERD The severity of the problem is [...] like taking the medication twice per day. cold sores The pt has been under increased stress in the past few months. They recently sold their home and may be moving back to [place] however they are uncertain where. The pt's mother recently broke her hip so the pt has been going back and forth to [place] for that to. Cold sores are occurring a few times per month. Minimal relief with OTC Abreva. asthma Onset: 36 years ago. The initial [...] minimal. Last used a few weeks ago. hypertension It is currently stable. Risk factors [...] used it more frequently due to URI. Establish care The pt is here t [...] fairExercise: minimalTetanus: < 10 yearsFlu shot: no Hypertension It is currently stable. Risk factors include age over age 60 and obesity. The hypertension is exacerbated by nothing. Pertinent negatives include chest pain, dyspnea, fatigue, headache, irregular heartbeat/palpitations and visual disturbances. Additional information: Currently on lisinopril-HCTZ 20-12.5mg daily. Tolerating medication. GERD Onset: 3 Years. The severity of [...] worse. Last EGD 3 years ago in [place]. GERD (comments) Has been treated for acid reflux for years. Was diagnosed with HH and referred to GI who opted not to proeed to surgery. He put her on Omeprazole 40 mg BID. She had previously tried Nexium and Protonix which did not help. She has severe resurgence of symptoosm if she misses doses.Her father from esophageal CA.New insurance requires a prior authorization. Cough Onset: 1 month a go. The [...] hoarseness, night sweats and weight loss. GERD Symptoms are rel ieved by proton pump inhibitors. Associated symptoms include heartburn. Pertinent negatives include blood in stool, change in appetite, constipation, dyspnea, fever and weight loss. hypertension (comments) [employer] prior [facility] app[facility]. Has refills on HTN medications.PMHX- HTN, GERD, asthmaPSHx- CAT w/ BSO, 2 back fusion surgeries. Cough (comments) URI started 1 m onth ago. Worsening cough. Hx asthma. Has been using ALbuterol q 4 hours for last 3 days. hypertension Risk factors inc lude age over age 60 and obesity. Associated symptoms include fatigue. Pertinent negatives include chest pain, dyspnea, epistaxis, headache, transient weakness, tremor and visual disturbances. Instructions Date Instruction Additional Infor emeterio Discussed [...]
[2024-11-24 10:15] VITALS: BP 118/78; PULSE 111; RESP 16; TEMP 36.4; O2SAT 96; BMI 20.8
--- NOTE | 2024-11-24 10:34 | PC.NURSE ---
Medical History Parkinson's disease without dyskinesia, with fluctuations Porcelain gallbladder Anxiety HLD (hyperlipidemia) HTN (hypertension) Schizophrenia
--- NOTE | 2024-11-24 10:35 | PC.NURSE ---
Patient is a 69 year old assigned female at with a history of schizophrenia, HTN, and angiolipoma presenting to the emergency department today with a possible left thumb hang nail. Patient's roommate states that the patient picks at the sides of her fingers fairly often and now she has been picking at her left thumb so she would like to be evaluated for it. Patient alert and cooperative. Respirations even and non-labored. Abdomen soft, non-tender with positive bowel sounds. Patient appears to be picking at her left thumbnail. Recently seen for same complaint.
--- OUTSIDE RECORDS SUMMARY | 2024-11-24 10:44 | XMS_ITS | Encounter Summary ---
Author Organization [facility] Address [address] [place] [address] Care Team Providers Care Candle Molder Name Role Phone Simon Katz MD Primary Care Provider [phone] Encounter Details Date Type Department Care Team (Late st Contact Info) Description 02/29/2024 Lab Requisition [facility] - Main Lab [address] [place] [address] Simon Katz MD [address] [place] [address] [address] [place], [phone] Parkinsonism, unspecified (CMS/HCC V24, CMS/HCC V28) [...] LAB CHEMISTRY METHOD 02/29/2024 12:14 PM EST [facility] Potassium 4.3 3.5 - 5.5 mmol/L LAB CHEMISTRY METHOD 02/29/2024 12:14 PM EST [facility] Chloride 112(H) 96 - 110 mmol/L LAB CHEMISTRY METHOD 02/29/2024 12:14 PM [facility] CO2 25 21 - 32 mmol/L LAB CHEMISTRY METHOD 02/29/2024 12:14 PM [facility] Anion Gap 7 3 - 11 LAB CHEMISTRY METHOD 02/29/2024 12:14 PM [facility] Glucose 66(L) 70 - 100 mg/dL LAB CHEMISTRY METHOD 02/29/2024 12:14 PM [facility] BUN 23 5 - 25 mg/dL LAB CHEMISTRY METHOD 02/29/2024 12:14 PM [facility] Creatinine 0.74 0.50 - 1.10 mg/dL LAB CHEMISTRY METHOD 02/29/2024 12:14 PM [facility] eGFR 88 >=60 mL/min/1. 73m2 LAB CHEMISTRY METHOD 02/29/2024 12:14 PM [facility] Comment:Calculation based on the Chronic Kidney Disease Epidemiology Collaboration (CKD-EPI) equation refit without adjustment for race. BUN/Creatinine Ratio 31.1 LAB CHEMISTRY METHOD 02/29/2024 12:14 PM [facility] Calcium 8.9 8.5 - 10.5 mg/dL LAB CHEMISTRY METHOD 02/29/2024 12:14 PM [facility] AST (SGOT) 22 10 - 42 unit/L LAB CHEMISTRY METHOD 02/29/2024 12:14 PM [facility] ALT (SGPT) 24 10 - 60 unit/L LAB CHEMISTRY METHOD 02/29/2024 12:14 PM [facility] Alkaline Phosphatase 36(L) 42 - 121 unit/L LAB CHEMISTRY METHOD 02/29/2024 12:14 PM [facility] Total Protein 5.8(L) 6.0 - 8.0 g/dL LAB CHEMISTRY METHOD 02/29/2024 12:14 PM [facility] Albumin 3.2 3.2 - 5.0 g/dL LAB CHEMISTRY METHOD 02/29/2024 12:14 PM [facility] Total Bilirubin 0.4 0.0 - 1.4 mg/dL LAB CHEMISTRY METHOD 02/29/2024 12:14 PM [facility] Blood Venous blood specimen / Unknown Venipuncture / Unknown 02/29/2024 6:57 AM EST 02/29/2024 10:58 AM EST us Simon Katz MD LAB BLOOD ORDERABLES Final Resul t [facility] [address] [place] [address], [place] [phone] * (ABNORMAL) Complete blood count (02/29/2024 6:57 AM EST) WBC 5.6 4.8 - 10.8 K/mcL LAB HEMETOLOGY METHOD 02/29/2024 11:46 AM [facility] RBC 3.70(L) 3.80 - 4.80 [facility] LAB HEMETOLOGY METHOD 02/29/2024 11:46 AM [facility] Hemoglobin 10.8(L) 11.5 - 16.0 g/dL LAB HEMETOLOGY METHOD 02/29/2024 11:46 AM [facility] Hematocrit 34.4(L) 35.0 - 47.0 % LAB HEMETOLOGY METHOD 02/29/2024 11:46 AM [facility] MCV 93.7 79.0 - 98.0 FL LAB HEMETOLOGY METHOD 02/29/2024 11:46 AM [facility] MCH 29.4 27.0 - 32.0 pcg LAB HEMETOLOGY METHOD 02/29/2024 11:46 AM [facility] MCHC 31.4(L) 32.0 - 37.0 g/dL LAB HEMETOLOGY METHOD 02/29/2024 11:46 AM EST [facility] RDW 13.4 11.0 - 15.0 % LAB HEMETOLOGY METHOD 02/29/2024 11:46 AM [facility] Platelets 203 130 - 400 K/mcL LAB HEMETOLOGY METHOD 02/29/2024 11:46 AM [facility] MPV 13.6(H) 7.0 - 11.0 FL LAB HEMETOLOGY METHOD 02/29/2024 11:46 AM EST [facility] NRBC 0.0 <1.0 % LAB HEMETOLOGY METHOD 02/29/2024 11:46 AM [facility] NRBC Absolute 0.00 <0.10 K/mcL LAB HEMETOLOGY METHOD 02/29/2024 11:46 AM [facility] Blood Venous blood specimen / Unknown Venipuncture / Unknown 02/29/2024 6:57 AM EST 02/29/2024 10:58 AM EST us Simon Katz MD LAB BLOOD ORDERABLES Final Resul t [facility] [address] [place] [address], documented in this encounter Visit Diagnoses Diagnosis Parkinsonism, unspecified (CMS/HCC V24, CMS/HCC V28) documented in this encounter Care Teams Candle Molder Relationship Specialty Start Date End Date Simon Katz MD [address] [place] [address] [address] [place], [phone] PCP - General Family Medicine 02/03/24 documented as of this encounter
--- OUTSIDE RECORDS SUMMARY | 2024-11-24 10:44 | XMS_ITS | Encounter Summary ---
Author Organization [email or web address] Address [address] [place] [address] 7[address] [place] [address] Care Team Providers Care Nuclear Criticality Safety Engineer Name Role Phone Luciana Winters MD Primary Care Provider [phone] Reason for Visit * Reason Onset Date Comments Hospital Follow-up 10/18/2024 Encounter Details Date Type Department Care Team ([facility] st Contact Info) Description 10/18/2024 Telephone [facility] [address] [place], [place] [phone] Luciana Winters MD [address] [place], [place] [phone] Hospital Follow-up Social History Tobacco Use Types [...] from pt requesting a HDF appt. Hospital: [facility] Date of admission: 09/28 Discharge date: 10/22 Diagnosed: psychosis *Send message to [place] Clinical Care Coordinators Margarito [facility] [place] to set up [place]F if need to call before Tuesday contact [phone] documented in this encounter Plan of Treatment Upcoming Encounters Date Type Department Care Team (Late st Contact Info) Description 12/18/2024 1:30 PM EDT Office Visit [facility] [address] [place] [address] Luciana Winters MD [address] [place] [address] documented as of this encounter Visit Diagnoses Not on filedocumented in this encounter Additional Health Concerns Assessment Noted Time PHQ-9 Depression Total Score: 3 12/20/19 24 1:29 PM EDT documented as of this encounter Care Teams Nuclear Criticality Safety Engineer Relationship Specialty Start Date End Date Luciana Winters MD [address] [place] [address] PCP - General Family Medicine 03/28/18 Leena 08/01/24 documented as of this encounter
--- OUTSIDE RECORDS SUMMARY | 2024-11-24 10:44 | XMS_ITS | Encounter Summary ---
Author Organization [facility] Address [address] [place] [address] Care Team Providers Care Space Scheduler Name Role Phone Simon Katz MD Primary Care Provider [phone] Encounter Details Date Type Department Care Team (Late st Contact Info) Description 03/20/2024 Lab Requisition [facility] - Main Lab [address] [facility] [place] [address] Simon Katz MD [address] [place] [address] [address] [place], [phone] Essential (primary) hypertension Social History Tobacco Use [...] hypertension documented in this encounter Care Teams Space Scheduler Relationship Specialty Start Date End Date Simon aKtz MD [address] [facility] [address] [place], [phone] PCP - General Family Medicine 02/03/24 documented as of this encounter
--- OUTSIDE RECORDS SUMMARY | 2024-11-24 10:44 | XMS_ITS | Encounter Summary ---
Author Organization [employer] Address [address] [place] [address] Care Team Providers Care Small Appliance Assembly Supervisor Name Role Phone Luciana Winters MD Primary Care Provider [phone] Reason for Referral * Consultation (Urgent) - Denied Specialty Diagnoses / Procedures Referred By Contjose t Referred To Contact Diagnoses Basal cell carcinoma (BCC) of skin of other part of face Underweight Undifferentiated schizophrenia (CMS/HCC) Luciana Winters MD [address] [place] [address] Phone: tel: fax: [address] [address] Phone: tel: fax: Referral ID Status Reason Start Date Expiration Date V isits Requested Visits Authorized [id number] Denied Specialty Services Required 09/21/2024 09/21/2025 1 0 Encounter Details Date Type Department Care Team (Late st Contact Info) Description 09/21/2024 Orders Only [facility] [address] [place] [address] [phone] Luciana Winters MD [address] [place] [phone] Basal cell carcinoma (BCC) of skin of [...] Description 12/18/2024 1:30 PM EDT Office Visit [facility] [address] [place], [place] [phone] Luciana Winters MD [address] [place] [address] Scheduled Referrals Name Type Priority Associated Diagnoses [...] documented as of this encounter Care Teams Small Appliance Assembly Supervisor Relationship Specialty Start Date End Date Luciana Winters MD [address] [place] [address] PCP - General Family Medicine 03/28/18 Leena 08/01/24 documented as of this encounter
--- OUTSIDE RECORDS SUMMARY | 2024-11-24 10:44 | XMS_ITS | Clinical Summary ---
Author Organization [address] Address [address] [place] [address] Phone Care Team Providers Care Senior Back End Java Developer Name Role Phone Simon Katz MD Primary Care Provider [phone] Social History Tobacco Use Types Packs/Day Years [...] of 2) 11/09/2005 COVID-19 Vaccine (1 - season) 2023 Cholesterol Screening (Lipid Panel) [...] mmol/L LAB CHEMISTRY METHOD 03/14/2024 11:31 AM [facility] Potassium 3.7 3.5 - 5.5 mmol/L LAB CHEMISTRY METHOD 03/14/2024 11:31 AM [facility] Chloride 110 96 - 110 mmol/L LAB CHEMISTRY METHOD 03/14/2024 11:31 AM [facility] CO2 25 21 - 32 mmol/L LAB CHEMISTRY METHOD 03/14/2024 11:31 AM [facility] Anion Gap 7 3 - 11 LAB CHEMISTRY METHOD 03/14/2024 11:31 AM [facility] Glucose 92 70 - 100 mg/dL LAB CHEMISTRY METHOD 03/14/2024 11:31 AM [facility] BUN 18 5 - 25 mg/dL LAB CHEMISTRY METHOD 03/14/2024 11:31 AM [facility] Creatinine 0.76 0.50 - 1.10 mg/dL LAB CHEMISTRY METHOD 03/14/2024 11:31 AM [facility] eGFR 85 >=60 mL/min/1. 73m2 LAB CHEMISTRY METHOD 03/14/2024 11:31 AM EST [facility] Comment:Calculation based on the Chronic Kidney Disease Epidemiology Collaboration (CKD-EPI) equation refit without adjustment for race. BUN/Creatinine Ratio 23.7 LAB CHEMISTRY METHOD 03/14/2024 11:31 AM EST [facility] Calcium 9.1 8.5 - 10.5 mg/dL LAB CHEMISTRY METHOD 03/14/2024 11:31 AM EST [facility] Blood Venous blood specimen / Unknown Venipuncture / Unknown 03/14/2024 6:22 AM EST 03/14/2024 10:16 AM EST us Simon Katz MD LAB BLOOD ORDERABLES Final Resul t [facility] [address] [place] [address], from Last 3 Months or Most Recently Relevant to Health Maintenance Insurance MEDICAID - [place] MEDICARE Care Teams Senior Back End Java Developer Relationship Specialty Start Date End Date Simon Katz MD [address], [phone] PCP - General Family Medicine 02/03/24
--- OUTSIDE RECORDS SUMMARY | 2024-11-24 10:44 | XMS_ITS | Encounter Summary ---
Author Organization [employer] Address [address] [place] [address] [address] [place] [address] Care Team Providers Care Lamp Shades Supervisor Name Role Phone Luciana Winters MD Primary Care Provider [phone] Encounter Details Date Type Department Care Team (Latest Contact Info) Description 05/04/2021 Abstract [facility] CONVERSIONS Dental, Provider, DDS Social History [...] Description 12/18/2024 1:30 PM EDT Office Visit [facility] MEDICINE [address] [place] [phone] Luciana Winters MD [address] [place] [phone] documented as of this encounter Visit Diagnoses Not on filedocumented in this encounter Care Teams Lamp Shades Supervisor Relationship Specialty Start Date End Date Luciana Winters MD [address] [place] [phone] PCP - General Family Medicine 03/28/18 [facility] 03/20/24 08/06/24 Leena 08/01/24 documented as of this encounter
--- OUTSIDE RECORDS SUMMARY | 2024-11-24 10:44 | XMS_ITS | Encounter Summary ---
Author Organization [employer] Address [address] [place] [address] [address] [place] [address] Care Team Providers Care Pricing Actuary Name Role Phone Luciana Winters MD Primary Care Provider [phone] Reason for Visit * Reason Onset Date Comments Hospital Follow-up 10/26/2024 Encounter Details Date Type Department Care Team ([facility] st Contact Info) Description 10/26/2024 Telephone [facility] MEDICINE [address] [place], [place] [phone] Luciana Winters MD [address] [place], [place] [phone] Hospital Follow-up Social History Tobacco Use Types [...] from pt requesting a HDF appt. Hospital: [facility] Date of admission: 10/02 Discharge date: 10/22 Diagnosed: Schizoaffective disorder *Send message to [place] Clinical Care Coordinators documented in this encounter Plan of Treatment Upcoming Encounters Date Type Department Care Team (Late st Contact Info) Description 12/18/2024 1:30 PM EDT Office Visit [facility] MEDICINE [address] [place] [address] Luciana Winters MD [address] [place] [address] documented as of this encounter Visit Diagnoses Not on filedocumented in this encounter Additional Health Concerns Assessment Noted Time PHQ-9 Depression Total Score: 3 12/20/19 1:29 PM EDT documented as of this encounter Care Teams Pricing Actuary Relationship Specialty Start Date End Date Luciana Winters MD [address] [place] [address] PCP - General Family Medicine 03/28/18 Leena 08/01/24 documented as of this encounter
--- OUTSIDE RECORDS SUMMARY | 2024-11-24 10:44 | XMS_ITS | Encounter Summary ---
Author Organization [facility] Address [address] [place] [address] Care Team Providers Care Senior Stock Plan Administrator Name Role Phone Simon Katz MD Primary Care Provider [phone] Encounter Details Date Type Department Care Team (Late st Contact Info) Description 02/03/[address] [facility] - Main Lab [address] [place] [address] Simon Katz MD [address] [place] [address] [address], [address] Essential (primary) hypertension Social History Tobacco [...] LAB CHEMISTRY METHOD 02/06/2024 11:02 AM EST [facility] Potassium 3.9 3.5 - 5.5 mmol/L LAB CHEMISTRY METHOD 02/06/2024 11:02 AM EST [facility] Chloride 114(H) 96 - 110 mmol/L LAB CHEMISTRY METHOD 02/06/2024 11:02 AM EST [facility] CO2 26 21 - 32 mmol/L LAB CHEMISTRY METHOD 02/06/2024 11:02 AM [facility] Anion Gap 6 3 - 11 LAB CHEMISTRY METHOD 02/06/2024 11:02 AM [facility] Glucose 70 70 - 100 mg/dL LAB CHEMISTRY METHOD 02/06/2024 11:02 AM [facility] BUN 20 5 - 25 mg/dL LAB CHEMISTRY METHOD 02/06/2024 11:02 AM [facility] Creatinine 0.72 0.50 - 1.10 mg/dL LAB CHEMISTRY METHOD 02/06/2024 11:02 AM [facility] eGFR 91 >=60 mL/min/1. 73m2 LAB CHEMISTRY METHOD 02/06/2024 11:02 AM [facility] Comment:Calculation based on the Chronic Kidney Disease Epidemiology Collaboration (CKD-EPI) equation refit without adjustment for race. BUN/Creatinine Ratio 27.8 LAB CHEMISTRY METHOD 02/06/2024 11:02 AM [facility] Calcium 8.9 8.5 - 10.5 mg/dL LAB CHEMISTRY METHOD 02/06/2024 11:02 AM [facility] Blood Venous blood specimen / Unknown Venipuncture / Unknown 02/06/2024 5:47 AM EST 02/06/2024 9:44 AM EST us Simon Katz MD LAB BLOOD ORDERABLES Final Resul t [facility] [address] [place] [address], documented in this encounter Visit Diagnoses Diagnosis Essential (primary) hypertension Unspecified essential hypertension documented in this encounter Care Teams Senior Stock Plan Administrator Relationship Specialty Start Date End Date Simon Katz MD 38 [facility] [address], [phone] PCP - General Family Medicine 02/03/24 documented as of this encounter
--- OUTSIDE RECORDS SUMMARY | 2024-11-24 10:44 | XMS_ITS | Encounter Summary ---
Author Organization [facility] Address [address] [place] [address] Care Team Providers Care Professional Fee Coder Name Role Phone Simon Katz MD Primary Care Provider [phone] Encounter Details Date Type Department Care Team (Late st Contact Info) Description 03/07/2024 Lab Requisition [facility] - Main Lab [address] [place] [address] Simon Katz MD 38 [facility] [address] [place], [phone] Essential (primary) hypertension; Poikiloderma vasculare atrophicans; [...] LAB CHEMISTRY METHOD 03/07/2024 12:26 PM EST [facility] Potassium 3.8 3.5 - 5.5 mmol/L LAB CHEMISTRY METHOD 03/07/2024 12:26 PM [facility] Chloride 109 96 - 110 mmol/L LAB CHEMISTRY METHOD 03/07/2024 12:26 PM [facility] CO2 26 21 - 32 mmol/L LAB CHEMISTRY METHOD 03/07/2024 12:26 PM [facility] Anion Gap 9 3 - 11 LAB CHEMISTRY METHOD 03/07/2024 12:26 PM [facility] Glucose 111(H) 70 - 100 mg/dL LAB CHEMISTRY METHOD 03/07/2024 12:26 PM [facility] BUN 16 5 - 25 mg/dL LAB CHEMISTRY METHOD 03/07/2024 12:26 PM [facility] Creatinine 0.72 0.50 - 1.10 mg/dL LAB CHEMISTRY METHOD 03/07/2024 12:26 PM [facility] eGFR 91 >=60 mL/min/1. 73m2 LAB CHEMISTRY METHOD 03/07/2024 12:26 PM [facility] Comment:Calculation based on the Chronic Kidney Disease Epidemiology Collaboration (CKD-EPI) equation refit without adjustment for race. BUN/Creatinine Ratio 22.2 LAB CHEMISTRY METHOD 03/07/2024 12:26 PM [facility] Calcium 9.2 8.5 - 10.5 mg/dL LAB CHEMISTRY METHOD 03/07/2024 12:26 PM [facility] Blood Venous blood specimen / Unknown Venipuncture / Unknown 03/07/2024 8:35 AM EST 03/07/2024 10:21 AM EST us Simon Katz MD LAB BLOOD ORDERABLES Final Resul t [facility] [address] [place] [address], * (ABNORMAL) Complete blood count (03/07/2024 8:35 AM EST) [facility] WBC 5.4 4.8 - 10.8 K/mcL LAB HEMETOLOGY METHOD 03/07/2024 12:32 PM [facility] RBC 3.70(L) 3.80 - 4.80 M/mcL LAB HEMETOLOGY METHOD 03/07/2024 12:32 PM [facility] Hemoglobin 10.7(L) 11.5 - 16.0 g/dL LAB HEMETOLOGY METHOD 03/07/2024 12:32 PM [facility] Hematocrit 33.9(L) 35.0 - 47.0 % LAB HEMETOLOGY METHOD 03/07/2024 12:32 PM [facility] MCV 92.4 79.0 - 98.0 FL LAB HEMETOLOGY METHOD 03/07/2024 12:32 PM [facility] MCH 29.2 27.0 - 32.0 pcg LAB HEMETOLOGY METHOD 03/07/2024 12:32 PM [facility] MCHC 31.6(L) 32.0 - 37.0 g/dL LAB HEMETOLOGY METHOD 03/07/2024 12:32 PM [facility] RDW 13.3 11.0 - 15.0 % LAB HEMETOLOGY METHOD 03/07/2024 12:32 PM [facility] Platelets 164 130 - 400 K/mcL LAB HEMETOLOGY METHOD 03/07/2024 12:32 PM [facility] MPV 13.2(H) 7.0 - 11.0 FL LAB HEMETOLOGY METHOD 03/07/2024 12:32 PM [facility] NRBC 0.0 <1.0 % LAB HEMETOLOGY METHOD 03/07/2024 12:32 PM [facility] NRBC Absolute 0.00 <0.10 K/mcL LAB HEMETOLOGY METHOD 03/07/2024 12:32 PM EST [facility] Blood Venous blood specimen / Unknown Venipuncture / Unknown 03/07/2024 8:35 AM EST 03/07/2024 10:21 AM EST us Simon Katz MD LAB BLOOD ORDERABLES Final Resul t [facility] [address] [place] [address], documented in this encounter Visit Diagnoses Diagnosis Essential (primary) hypertension Unspecified essential hypertension Poikiloderma vasculare atrophicans Encounter for examination for admission to [facility] documented in this encounter Care Teams Professional Fee Coder Relationship Specialty Start Date End Date Simon Katz MD [address] [place] [address], [phone] PCP - General Family Medicine 02/03/24 documented as of this encounter
--- OUTSIDE RECORDS SUMMARY | 2024-11-24 10:44 | XMS_ITS | Encounter Summary ---
Author Organization [employer] Address [address] [place] [address] 7 [place] [address] Care Team Providers Care Skate Boarder Name Role Phone Luciana Winters MD Primary Care Provider [phone] Reason for Visit * Reason Onset Date Comments Referral 09/03/2022 Encounter Details Date Type Department Care Team ([facility] st Contact Info) Description 09/03/2022 Telephone [facility] MEDICINE [address] [place] [phone] Luciana Winters MD [address] [place] [address] Referral Social History Tobacco Use Types Packs/Day [...] of shaking andshuffling. Please contact Loree at [phone] Ext [phone] documented in this encounter Plan of Treatment Upcoming Encounters Date Type Department Care Team (Late st Contact Info) Description 12/18/2024 1:30 PM EDT Office Visit [facility] MEDICINE [address] [place] [phone] Luciana Winters MD [address] [place] [phone] documented as of this encounter Visit Diagnoses Not on filedocumented in this encounter Care Teams Skate Boarder Relationship Specialty Start Date End Date Luciana Winters MD [address] [place] [phone] PCP - General Family Medicine 03/28/18 Jannette 03/20/24 08/06/24 Leena 08/01/24 documented as of this encounter
--- OUTSIDE RECORDS SUMMARY | 2024-11-24 10:44 | XMS_ITS | Encounter Summary ---
Author Organization [employer] Address [address] [place] [address] 7 [place] [address] Care Team Providers Care Fitness And Wellness Instructor Name Role Phone Luciana Winters MD Primary Care Provider [phone] Encounter Details Date Type Department Care Team (Late st Contact Info) Description 06/17/2022 Orders Only [facility] MEDICINE [address] [place] [address] [phone] Luciana Winters MD [address] [place] [address] [phone] Essential hypertension (Primary Dx); Stage 2 chronic kidney disease; Dyslipidemia; Undifferentiated schizophrenia (CMS/[facility]) Social History Tobacco Use Types Packs/Day Years [...] Description 12/18/2024 1:30 PM EDT Office Visit [facility] MEDICINE [address] [place] [address] [phone] Luciana Winters MD [address] [place] [address] [phone] Scheduled Orders Name Type Priority Associated Diagnoses [...] (CMS/HCC) documented in this encounter Care Teams Fitness And Wellness Instructor Relationship Specialty Start Date End Date Luciana Winters MD [address] [place] [phone] PCP - General Family Medicine 03/28/18 Jannette 03/20/24 08/06/24 Leena 08/01/24 documented as of this encounter
--- OUTSIDE RECORDS SUMMARY | 2024-11-24 10:44 | XMS_ITS | Clinical Summary ---
Author Organization [employer] Address [address] [facility] 7t [place] [address] Care Team Providers Care Slag Production Worker Name Role Phone Luciana Winters MD Primary Care Provider [phone] Allergies No known active allergies Medications * [...] is not interested in going to see building custodial supervisor at this time. Assessment & Plan (08/21/2024 8:50 AM EDT): - Followed by Dr. Soriano, last seen in Dec 2022 - s/p excision of the forehead lesion by Dr. Wright in 2021 - continue sun protection -Pt states she is not interested in going to see building custodial supervisor at this time. Assessment & Plan (05/21/2024 1:17 PM EST): - Followed by Dr. Soriano, last seen in Dec 2022 - s/p excision of the forehead lesion by Dr. Wright in 2021 - continue sun protection -Pt states she is not interested in going to see building custodial supervisor at this time. Assessment & Plan (04/09/2024 [...] in Nov 2022 and February 2023 in [facility] psych unit -Recent hospitalization at [facility] psych 09/28-10/22/2024. Schizophrenia. Catatonia. PTSD. Acute UTI. -Hospitalization frequency: every 1-2 mo. -S providers: [facility] at [address] [place] [address] -Seeing counselor monthly and psych prescriber every [...] in Nov 2022 and February 2023 in [facility] psych unit -Recent hospitalization at [facility] psych 07/04/24-07/31/24. Psychosis. PTSD. Acute UTI. -S providers: [facility] at [address] [place] [address] -Seeing counselor monthly and psych prescriber every [...] in Nov 2022 and February 2023 in [facility] psych unit -S providers: [facility] at [address] [place] [address] -Seeing counselor monthly and psych prescriber every 2-3 mo -Most recent medications prescribed by [facility] provide: Risperidone 1 mg in the morning, [...] in Nov 2022 and February 2023 in [facility] psych unit -[facility] providers: [facility] at [address] [place] [address]. [place], [place] -Seeing counselor monthly and psych prescriber every 2-3 mo -Most recent medications prescribed by [facility] provide: Risperidone 1 mg in the [...] in Nov 2022 and February 2023 in [facility] psych unit -[facility] providers: [facility] at [address] [place] [address]. [place], [place] -Seeing counselor monthly and psych prescriber every 2-3 mo -Current medication: Risperidone 1 mg in the morning, 2 mg in the evening; benztropine 0.5 mg twice daily; quetiapine 50 mg at bedtime; -Previous medications: Perphenazine 8 mg daily; Benztropine, Quetiapine -Continue current medication and recommendations by [facility] providers. Assessment & Plan (09/13/2023 8:48 AM EDT): -Differential Dx Schizoaffective disorder -Hx 2nd daughter committed a suicide in 1999 -Hospitalization for attempted self-harm in Nov 2022 and February 2023 in [facility] psych unit -[facility] providers: [facility] at [address] [place] [address] -Seeing counselor monthly and psych prescriber every 2-3 mo -Current medication: Risperidone 1 mg in the morning, 2 mg in the evening; benztropine 0.5 mg twice daily; quetiapine 50 mg at bedtime; -Previous medications: Perphenazine 8 mg daily; Benztropine, Quetiapine -Continue current medication and recommendations by [facility] providers. Assessment & Plan (07/25/2023 9:17 PM EDT): -Differential Dx Schizoaffective disorder -Hx 2nd daughter committed a suicide in 1999 -Hospitalization for attempted self-harm in Nov 2022 and February 2023 in [facility] psych unit -[facility] providers: [facility] at [address] [place] [address] -Seeing counselor monthly and psych prescriber every 2-3 mo -Current medication: Risperidone 1 mg in the morning, 2 mg in the evening; benztropine 0.5 mg twice daily; quetiapine 50 mg at bedtime; -Previous medications: Perphenazine 8 mg daily; Benztropine, Quetiapine -Continue current medication and recommendations by [facility] providers. Assessment & Plan (03/12/2023 5:57 PM EST): -Differential Dx Schizoaffective disorder -Hx 2nd daughter committed a suicide in 1999 -Hospitalization recently for attempted self-harm in Nov 2022 in [facility] psych unit -[facility] providers: [facility] at [address] [place] [address] -Seeing counselor monthly and psych prescriber every 2-3 mo -Current medication: Risperidone 1 mg in the morning, 2 mg in the evening; benztropine 0.5 mg twice daily; quetiapine 50 mg at bedtime; -Previous medications: Perphenazine 8 mg daily; Benztropine, Quetiapine -Continue current medication and recommendations by [facility] providers. Assessment & Plan (11/01/2022 3:45 PM EDT): -Hx 2nd daughter committed a suicide in 1999 -[facility] providers: [facility] at [address] [place] [address] -Seeing counselor monthly and psych prescriber every 2-3 mo -Current medication: Quetiapine; benztropine for EPS -Previous medication: Perphenazine 8 mg daily for many years, changed in 2022 -Continue current medication and recommendations by [facility] providers. Assessment & Plan (09/22/2022 6:35 AM EDT): -Hx 2nd daughter committed a suicide in 1999 -[facility] providers: [facility] at [address] [place] [address] -Seeing counselor monthly and psych prescriber every 2-3 mo -Current medication: Perphenazine 8 mg daily; Benztropine, Quetiapine -Continue current medication and recommendations by [facility] providers. Vitamin D deficiency 12/03/2011 Assessment [...] CKD II- IIIa - previously followed by latent print examiner annually - no longer seeing latent print examiner - continue periodic lab - avoid nephrotoxins - keep adequate nutritional and fluid intake Assessment & Plan (08/25/2024 3:52 PM EDT): - usually CKD II- IIIa - previously followed by latent print examiner annually - no longer seeing latent print examiner - continue periodic lab - avoid nephrotoxins Assessment & Plan (05/21/2024 1:08 PM EST): - usually CKD II- IIIa - previously followed by latent print examiner annually - no longer seeing latent print examiner - 08/18/22 BUN 20, Scr 1.08, eGFR 57, K 3.9, Bicarb 26 -12/31/22 eGFR > 60 - continue periodic lab - avoid nephrotoxins Assessment & Plan (12/20/2023 2:27 PM EDT): - usually CKD II- IIIa - previously followed by latent print examiner annually - no longer seeing latent print examiner - 08/18/22 BUN 20, Scr 1.08, eGFR 57, K 3.9, Bicarb 26 -12/31/22 eGFR > 60 - continue periodic lab - avoid nephrotoxins Assessment & Plan (09/13/2023 8:46 AM EDT): - usually CKD II- IIIa - previously followed by latent print examiner annually - no longer seeing latent print examiner - 08/18/22 BUN 20, Scr 1.08, eGFR 57, K 3.9, Bicarb 26 -12/31/22 eGFR > 60 - continue periodic lab - avoid nephrotoxins Assessment & Plan (07/25/2023 9:14 PM EDT): - usually CKD II- IIIa - previously followed by latent print examiner annually - no longer seeing latent print examiner - 08/18/22 BUN 20, Scr 1.08, eGFR 57, K 3.9, Bicarb 26 -12/31/22 eGFR > 60 - continue periodic lab - avoid nephrotoxins Assessment & Plan (03/12/2023 6:13 PM EST): - usually CKD II- IIIa - previously followed by latent print examiner annually - no longer seeing latent print examiner - 08/18/22 BUN 20, Scr 1.08, eGFR 57, K 3.9, Bicarb 26 -12/31/22 eGFR > 60 - continue periodic lab - avoid nephrotoxins Assessment & Plan (11/01/2022 3:42 PM EDT): - usually CKD II- IIIa - previously followed by latent print examiner annually - no longer seeing latent print examiner - 08/18/22 BUN 20, Scr 1.08, eGFR 57, K 3.9, Bicarb 26 - continue periodic lab - avoid nephrotoxins Assessment & Plan (09/22/2022 6:14 AM EDT): - usually CKD II- IIIa - previously followed by latent print examiner annually - no longer seeing latent print examiner - check lab today Polyp of colon 02/24/2007 Resolved Problems Problem Noted Date Diagnosed Date Resolved Date Tachycardia 09/13/2023 2024 Assessment & Plan (09/13/2023 10:19 AM EDT): -HR 120 09/13/2023 -pt did not want to have any testing done -discussed referring for Holter monitor incase pt changes her mind Encounters Date Type Department Care Team Description 11/22/[address] [address] Luciana Winters MD ER Follow-up 11/05/2024 9:00 AM EDT Office Visit [address] [address] Luciana Winters MD Recurrent UTI (Primary Dx); Undifferentiated schizophrenia (CMS/HCC); Cognitive impairment; Tremor; Age-related osteoporosis without current pathological fracture; Essential hypertension; Dyslipidemia; Constipation, unspecified constipation type; PTSD (post-traumatic stress disorder); Basal cell carcinoma (BCC) of skin of other part of face; Weight loss; Moderate protein-calorie malnutrition (CMS/HCC); Porcelain gallbladder; Stage 3a chronic kidney disease (CMS/HCC); Lung nodules 11/05/2024 Travel 11/02/[address] [address] Luciana Winters MD chart prep 11/01/2024 Orders Only GENERIC EXTERNAL DATA DEPARTMENT Provider, Generic External Data 10/31/[address] [phone] Luciana Winters MD 10/26/2024 Patient Outreach [facility] [address] [place], [place] [phone] Luciana Winters MD Transition Of Care (Tcm) (HDF scheduled. ) 10/26/[address] [phone] Luciana Winters MD Hospital Follow-up 10/18/2024 Patient Outreach [address] [address] Luciana Winters MD Transition Of Care (Tcm) (HDF- scheduled with Kalpana from [facility] and [facility] screening needs to be complete it in office) ) 10/18/[address] [address] Luciana Winters MD Hospital Follow-up 09/27/[address] [address] Luciana Winters MD chart prep 09/24/[address] [address] Luciana Winters MD Call Back Request; Medication Question 09/21/2024 Orders Only [address] [address] Luciana Winters MD Basal cell carcinoma (BCC) of skin of other part of face (Primary Dx); Underweight; Undifferentiated schizophrenia (CMS/HCC) 09/18/[address] [address] Luciana Winters MD ER Follow-up 09/06/[address] [address] Luciana Winters MD Durable Medical Equipment (DME: [employer]) 08/27/[address] [address] Luciana Winters MD DME Rollator 08/27/[address] [address] Maribeth Marte RN from Last 3 Months Immunizations Immunization Administration [...] Description 12/18/2024 1:30 PM EDT Office Visit [facility] [address] [place] [address] Luciana Winters MD [address] [place] [address] Health Maintenance Due Date Last Done Comments [...] clean catch procedure / Unknown 11/01/2024 11/01/2024 Comment:UACC Narrative [facility] - 11/03/2024 8:07 AM EDT Escherichia coli Quant > 100,000 cfu/mL Escherichia coli: Ampicillin <=2(S) Escherichia coli: Cefazolin (Urine) <=1(S) Escherichia coli: Cefepime <=0.12(S) Escherichia coli: Ceftriaxone <=0.25(S) Escherichia coli: Ciprofloxacin <=0.06(S) Escherichia coli: Gentamicin <=1(S) Escherichia coli: Nitrofurantoin <=16(S) Escherichia coli: Trimethoprim/Sulfamethoxazole <=20(S) Specimen Source: Urine clean catch us Generic External Data Provider LAB MICROBIOLOGY - GENERAL ORDERABLES Final Result [facility] [address] [place] [address] [phone] * Lipid Panel with Reflex to Direct LDL (08/15/2024 11:02 AM EDT) Triglycerides 73 <150 mg/dL [facility] Comment:Desirable Triglyceri de: less than 150 mg/dLBorderline High Triglyceride 150-199 mg/dLHigh Triglyceride: 200-499 mg/dLVery High Triglyceride: greater than or equal to 5OO mg/dL Cholesterol 132 <200 mg/dL [facility] Comment:Desirable Cholestero l: less than 200 mg/dLBorderline High Cholesterol: 200-239 mg/dLHigh Cholesterol: greater than 239 mg/dL LDL Cholesterol Calculated 73 <100 mg/dL [facility] Comment:Desirable LDL: less than 100 mg/dLNear Optimal/Above Optimal LDL: 110- 129 mg/dLBorderline High LDL: 130-159 mg/dLHigh LDL: 160-189 mg/dLVery High LDL: greater than or equal to 190 mg/dL HDL Cholesterol 45 >40 mg/dL [facility] Comment:Desirable HDL: great er than 40 mg/dL Note: This HDL assay may give artificially low results in patients with liver disease. Blood 08/15/2024 11:0 2 AM EDT 08/15/2024 1:06 PM EDT Luciana Winters MD LAB BLOOD ORDERABLES Final Resul t [facility] [address] [place] [address] [phone] * BI Mammogram Screening Tomosynthesis Bilateral (02/21/2023 12:51 PM EST) Anatomical Region Laterality Modality Breast Bilateral Mammography 02/21/2023 12:5 1 PM EST Narrative 03/04/2023 2:27 PM EST [facility] [address] [place] [address] Mammography Report Signed Patient: Melia Harp MR#: [id number] : 1955 Acct:[id number] Age/Sex: 67 / F ADM Date: 02/21/23 Loc: [facility] Attending Dr: Luciana Winters MD Ordering Physician: Luciana Winters MD Results: 1Negative Date of Service: 02/21/23 Follow Up: 1 Year From Orig inal Mammogram Procedure(s): MM tomosynthesis screening BI Accession Number(s): [id number] cc: Luciana Winters MD EXAMINATION: MM SCREENING [...] in OV> 03/04/23 1423 DD/ 1251 TD/TT: Internal Medicine Nurse Practitioner: Procedure Note Donotuseinterpreter, Image - 03/04/2023 [facility] [address] [place] [address] Mammography Report Signed Patient: Melia Harp MMR#: [id number] : 6Acct:[id number] Age/Sex: 67 / FADM Date: 02/21/23 Loc: [facility] Attending Dr: Luciana Winters MD Ordering Physician: Luciana Winters MDResults: 1Negative Date of Service: 02/21/23Follow Up: 1 Year From Orig inal Mammogram Procedure(s): MM tomosynthesis screening BI Accession Number(s): [id number] cc: Luciana Winters MD EXAMINATION: MM SCREENING [...] in OV> 03/04/23 1423 DD/ 1251 TD/TT: Internal Medicine Nurse Practitioner: Luciana Winters MD IM BI PROCEDURES Final Result * Hepatitis C Antibody with Reflex to HCV, RNA, Quantitative, Real-Time PCR (08/18/2022 8:36 AM EDT) Hepatitis C Antibody NON-REACT CEASAR NON-REACT CEASAR [facility] Index 0.02 <1.00 [facility] Comment: HCV antibody was non-reactive. There is no laboratory evidence of HCV infection. In most cases, no further action is required. However, if recent HCV exposure is suspected, a test for HCV RNA (test code 64942) is suggested. For additional information please refer to http://education.Hotalot/faq/UWK61d9 (This link is being provided for informational/ educational purposes only.) Blood Venous blood specimen / Unknown 08/18/2022 8:36 AM EDT 08/18/2022 8:38 AM EDT Narrative [facility] [[email or web address] - 08/19/2022 4:44 PM EDT FASTING:YES FASTING: YES [facility] LAB BLOOD ORDERABLES Final Re sult [facility] [address], [place] [address] [employer]Forms [facility] [address] [place] [address] * Colonoscopy (10/21/2017) Colonoscopy Normal Normal us Historical Provider MD HEALTH MAINTENANCE Final Result from Last 3 Months or Most Recently Relevant to Health Maintenance Insurance MEDIC[place] [id number] [address] [place] [id number] Care Teams Slag Production Worker Relationship Specialty Start Date End Date Luciana Winters MD [address] [place] [address] PCP - General Family Medicine 03/28/18 Leena 08/01/24
--- OUTSIDE RECORDS SUMMARY | 2024-11-24 10:44 | XMS_ITS | Encounter Summary ---
Author Organization [employer] Address [address] [place] [address] 7 [place] [address] Care Team Providers Care Grinder Set Up Operator Gear Tool Name Role Phone Luciana Winters MD Primary Care Provider [phone] Reason for Visit * Reason Onset Date Comments Nurse Triage 05/27/2023 Encounter Details Date Type Department Care Team ([facility] st Contact Info) Description 05/27/2023 Telephone [facility] [address] [place], [place] [phone] Luciana Winters MD [address] [place], [place] [phone] Nurse Triage Social History Tobacco Use Types [...] Description 12/18/2024 1:30 PM EDT Office Visit [facility] [address] [place] [address] Luciana Winters MD [address] [place] [address] documented as of this encounter Visit Diagnoses Not on filedocumented in this encounter Additional Health Concerns Assessment Noted Time PHQ-9 Depression Total Score: 0 09/21/19 11:48 AM EDT documented as of this encounter Care Teams Grinder Set Up Operator Gear Tool Relationship Specialty Start Date End Date Luciana Winters MD [address] [place] [address] PCP - General Family Medicine 03/28/18 [place] 03/20/24 08/06/24 Leena 08/01/24 documented as of this encounter
--- OUTSIDE RECORDS SUMMARY | 2024-11-24 10:44 | XMS_ITS | Encounter Summary ---
Author Organization [facility] Address [address] [place] [address] Care Team Providers Care Rn Admit Name Role Phone Simon Katz MD Primary Care Provider [phone] Encounter Details Date Type Department Care Team (Late st Contact Info) Description 03/13/2024 Lab Requisition [facility] - Main Lab [address] [place] [address] Simon Katz MD [address] [facility] [address] [place], [phone] Essential (primary) hypertension Social History Tobacco [...] mmol/L LAB CHEMISTRY METHOD 03/14/2024 11:31 AM [facility] CO2 25 21 - 32 mmol/L LAB CHEMISTRY METHOD 03/14/2024 11:31 AM [facility] Anion Gap 7 3 - 11 LAB CHEMISTRY METHOD 03/14/2024 11:31 AM [facility] Glucose 92 70 - 100 mg/dL LAB CHEMISTRY METHOD 03/14/2024 11:31 AM [facility] BUN 18 5 - 25 mg/dL LAB CHEMISTRY METHOD 03/14/2024 11:31 AM [facility] Creatinine 0.76 0.50 - 1.10 mg/dL LAB CHEMISTRY METHOD 03/14/2024 11:31 AM [facility] eGFR 85 >=60 mL/min/1. 73m2 LAB CHEMISTRY METHOD 03/14/2024 11:31 AM [facility] Comment:Calculation based on the Chronic Kidney Disease Epidemiology Collaboration (CKD-EPI) equation refit without adjustment for race. BUN/Creatinine Ratio 23.7 LAB CHEMISTRY METHOD 03/14/2024 11:31 AM [facility] Calcium 9.1 8.5 - 10.5 mg/dL LAB CHEMISTRY METHOD 03/14/2024 11:31 AM [facility] Blood Venous blood specimen / Unknown Venipuncture / Unknown 03/14/2024 6:22 AM EST 03/14/2024 10:16 AM EST us Simon Katz MD LAB BLOOD ORDERABLES Final Resul t [facility] [address] [place] [address], * (ABNORMAL) Complete blood count (03/14/2024 6:22 AM EST) WBC 6.3 4.8 - 10.8 K/mcL LAB HEMETOLOGY METHOD 03/14/2024 11:04 AM EST [facility] RBC 3.80 3.80 - 4.80 M/mcL LAB HEMETOLOGY METHOD 03/14/2024 11:04 AM [facility] Hemoglobin 11.1(L) 11.5 - 16.0 g/dL LAB HEMETOLOGY METHOD 03/14/2024 11:04 AM [facility] Hematocrit 35.5 35.0 - 47.0 % LAB HEMETOLOGY METHOD 03/14/2024 11:04 AM [facility] MCV 93.2 79.0 - 98.0 FL LAB HEMETOLOGY METHOD 03/14/2024 11:04 AM [facility] MCH 29.1 27.0 - 32.0 pcg LAB HEMETOLOGY METHOD 03/14/2024 11:04 AM [facility] MCHC 31.3(L) 32.0 - 37.0 g/dL LAB HEMETOLOGY METHOD 03/14/2024 11:04 AM [facility] RDW 13.3 11.0 - 15.0 % LAB HEMETOLOGY METHOD 03/14/2024 11:04 AM [facility] Platelets 249 130 - 400 K/mcL LAB HEMETOLOGY METHOD 03/14/2024 11:04 AM [facility] MPV 12.7(H) 7.0 - 11.0 FL LAB HEMETOLOGY METHOD 03/14/2024 11:04 AM [facility] NRBC 0.0 <1.0 % LAB HEMETOLOGY METHOD 03/14/2024 11:04 AM [facility] NRBC Absolute 0.00 <0.10 K/mcL LAB HEMETOLOGY METHOD 03/14/2024 11:04 AM [facility] Blood Venous blood specimen / Unknown Venipuncture / Unknown 03/14/2024 6:22 AM EST 03/14/2024 10:14 AM EST us Simon Katz MD LAB BLOOD ORDERABLES Final Resul t [facility] [address] [place] [address], documented in this encounter Visit Diagnoses Diagnosis Essential (primary) hypertension Unspecified essential hypertension documented in this encounter Care Teams Rn Admit Relationship Specialty Start Date End Date Simon Katz MD [address] [place] [address] [address] [place], [address] PCP - General Family Medicine 02/03/24 documented as of this encounter
--- OUTSIDE RECORDS SUMMARY | 2024-11-24 10:45 | XMS_ITS | Encounter Summary ---
Author Organization [employer] Address [address] [facility] 7t [place] [address] Care Team Providers Care Inside Outside Sales Representative Name Role Phone Luciana Winters MD Primary Care Provider [phone] Reason for Visit * Reason Onset Date Comments Medication Question 03/20/2024 Encounter Details Date Type Department Care Team ([facility] Contact Info) Description 03/20/2024 Telephone [facility] MED[facility] [address] [place], [place] [phone] Luciana Winters MD [address] [place] [address] Medication Question Social History Tobacco Use Types [...] [facility] the [facility] 7.5 mg as [...] 7.5 mg.) If any questions contact Nora: [phone] documented in this encounter Plan of Treatment Upcoming Encounters Date Type Department Care Team ([facility] st Contact Info) Description 12/18/2024 1:30 PM EDT Office Visit [facility] [address] [place] [address] Luciana Winters MD [address] [place] [address] documented as of this encounter Visit Diagnoses Not on filedocumented in this encounter Additional Health Concerns Assessment Noted Time PHQ-9 Depression Total Score: 3 12/20/19 24 1:29 PM EDT documented as of this encounter Care Teams Inside Outside Sales Representative Relationship Specialty Start Date End Date Luciana Winters MD [address] [place] [address] PCP - General Family Medicine 03/28/18 [place] 03/20/24 08/06/24 Leena 08/01/24 documented as of this encounter
--- OUTSIDE RECORDS SUMMARY | 2024-11-24 10:45 | XMS_ITS | Encounter Summary ---
Author Organization [employer] Address [address] [place] [address] [address] [place] [address] Care Team Providers Care Rafter Cutting Machine Operator Name Role Phone Luciana Winters MD Primary Care Provider [phone] Reason for Visit * Reason Comments Med Refill Encounter Details Date Type Department Care Team (Late st Contact Info) Description 06/03/2022 Refill [facility] [address] [place], [place] [phone] Randee Sweeney MD [address] [place] [phone] Hypertension, unspecified type; Hypertriglyceridemia Social History Tobacco [...] Description 12/18/2024 1:30 PM EDT Office Visit [facility] [address] [place], [place] [phone] Luciana Winters MD [address] [place], [place] [phone] documented as of this encounter Visit Diagnoses Diagnosis Hypertension, unspecified type Hypertriglyceridemia Pure hyperglyceridemia documented in this encounter Care Teams Rafter Cutting Machine Operator Relationship Specialty Start Date End Date Luciana Winters MD [address] [place] [address] PCP - General Family Medicine 03/28/18 [place] 03/20/24 08/06/24 Leena 08/01/24 documented as of this encounter
--- OUTSIDE RECORDS SUMMARY | 2024-11-24 10:45 | XMS_ITS | Encounter Summary ---
Author Organization [employer] Address [address] [facility] 7t [place] [address] Care Team Providers Care Roll Examiner Name Role Phone Luciana Winters MD Primary Care Provider [phone] Encounter Details Date Type Department Care Team ([facility] st Contact Info) Description 03/22/2024 Orders Only [facility] [address] [place] [address] Luciana Winters MD [address] [place] [address] Social History Tobacco Use Types Packs/Day Years [...] Description 12/18/2024 1:30 PM EDT Office Visit [facility] [address] [place] [phone] Luciana Winters MD [address] [place] [address] documented as of this encounter Visit Diagnoses Not on filedocumented in this encounter Additional Health Concerns Assessment Noted Time PHQ-9 Depression Total Score: 3 12/20/19 24 1:29 PM EDT documented as of this encounter Care Teams Roll Examiner Relationship Specialty Start Date End Date Luciana Winters MD [address] [place] [id number] PCP - General Family Medicine 03/28/18 [facility] 03/20/24 08/06/24 Leena 08/01/24 documented as of this encounter
--- OUTSIDE RECORDS SUMMARY | 2024-11-24 10:45 | XMS_ITS | Encounter Summary ---
Author Organization [employer] Address [address] [place] [address] 7 [place] [address] Care Team Providers Care Hematology Technologist Name Role Phone Luciana Winters MD Primary Care Provider [phone] Reason for Visit * Reason Onset Date Comments ER Follow-up 11/22/2024 Encounter Details Date Type Department Care Team ([facility] st Contact Info) Description 11/22/2024 Telephone [facility] [address] [place], [place] [phone] Luciana Winters MD [address] [place], [place] [phone] ER Follow-up Social History Tobacco Use Types Packs/Day [...] encounter Miscellaneous Notes * Telephone Encounter - Loree Tovar RN - 11/22/2024 1:52 PM EDT Telephone call to pt who reports thumb nail better. No meds prescribed at ED. Denies redness, swelling, pus, fever, chills. Reviewed WIC hours and reasons to seek medical attention. Pt verbalized understanding, no questions. * Telephone Encounter - Loree Tovar RN - 11/22/2024 1:52 PM EDT ----- Message from Nurse Allison Lynch sent at 11/20/2024 11:22 AM EDT ----- Regarding: [facility] FOLLOW UP Transition of Care Note Melia Harp is going through a recent transition of care. Emergency Room Visit Date: 11/19/2024 Facility: [facility] Diagnosis: right thumb hang nail Disposition: Discharged home Discharge summary in the chart: Yes Please contact for a telehealth RN visit * Telephone Encounter - Loree Tovar RN - 11/22/2024 1:48 PM EDT ----- Message from Nurse Allison Lynch sent at 11/20/2024 11:22 AM EDT ----- Regarding: [facility] FOLLOW [facility] Transition of Care Note Melia Harp is going through a recent transition of care. Emergency Room Visit Date: 11/19/2024 Facility: [facility] Diagnosis: right thumb hang nail Disposition: Discharged home Discharge summary in the chart: Yes Please contact for a telehealth RN visit documented in this encounter Plan of Treatment Upcoming Encounters Date Type Department Care Team (Late st Contact Info) Description 12/18/2024 1:30 PM EDT Office Visit [facility] [address] [place] [address] Luciana Winters MD [address] [place] [address] documented as of this encounter Visit Diagnoses Not on filedocumented in this encounter Additional Health Concerns Assessment Noted Time PHQ-9 Depression Total Score: 3 12/20/19 24 1:29 PM EDT documented as of this encounter Care Teams Hematology Technologist Relationship Specialty Start Date End Date Luciana Winters MD [address] [place] [id number] PCP - General Family Medicine 03/28/18 Leena 08/01/24 documented as of this encounter
--- NOTE | 2024-11-24 12:34 | ED.WOUNDLAC ---
HPI - Wound/Laceration General Chief Complaint: Wound/Laceration Stated Complaint: finger infection Time Seen by Provider: 11/24/24 10:58 Source: patient (friend) Mode of arrival: ambulatory Limitations: no limitations History of Present Illness ED Provider: HPI narrative: Melia Harp with a history of schizophrenia, presenting with concerns of left thumb pain, she bites and pills the skin of her finger, has been seen for this in the past. Related Data Previous Rx's ?Medication ?Instructions ?Recorded alendronate 70 mg tablet 70 mg PO FR #4 tabs 07/31/24 brexpiprazole 2 mg tablet (Rexulti) 2 mg PO DAILY #30 tabs 10/22/24 carbidopa 25 mg-levodopa 100 mg 1 tab PO DAILY@0800,1200 #60 tabs 10/22/24 tablet (Sinemet) lorazepam 0.5 mg tablet 0.5 mg PO TID #90 tabs 10/22/24 lorazepam 0.5 mg tablet (Ativan) 0.5 mg PO TID #90 tabs 10/22/24 melatonin 3 mg tablet 6 mg (2 x 3 mg) PO BEDTIME #60 tabs 10/22/24 memantine 5 mg tablet 5 mg PO DAILY #30 tabs 10/22/24 metoprolol tartrate 25 mg tablet 25 mg PO BID #60 tabs 10/22/24 sennosides 8.6 mg-docusate sodium 1 tab PO BID PRN Constipation #60 10/22/24 50 mg tablet (Senna Plus) tabs simvastatin 20 mg tablet 20 mg PO BEDTIME #30 tabs 10/22/24 simvastatin 20 mg tablet 20 mg PO BEDTIME #30 tabs 10/22/24 trazodone 100 mg tablet 100 mg PO BEDTIME #30 tabs 10/22/24 Allergies Allergy/AdvReac Type Severity Reaction Status Date / Time No Known Allergies Allergy Verified 11/24/24 10:16 Review of Systems Constitutional: Constitutional: Reports as per HPI [facility] Past Medical History Medical History Parkinson's disease without dyskinesia, with fluctuations Porcelain gallbladder Anxiety HLD (hyperlipidemia) HTN (hypertension) Schizophrenia Social History Social History Household Members: Friend(s) Household Members Other:: Roommate Housing: Apartment Do you presently have visiting nurse or other home services: Yes (Reema [phone]) Alcohol intake: former Comment: 5-min checks Patient Tobacco Use Status: Former Tobacco user Smoked in Last 30 Days: No e-Cigarette/Vaping Use: Never Used Use of substances other than those prescribed or required for medical reasons: No Advance Directives: Yes Advance Directives on File: Yes Advance Directives Date on File: 10/10/24 service: No Current 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 status: 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 Sexual orientation: Straight/Heterosexual Physical Exam Vital Signs: Vital Signs: Last Vital Signs Temp 97.6 F 11/24/24 10:15 Pulse 111 H 11/24/24 10:15 Resp 16 11/24/24 10:15 BP 118/78 11/24/24 10:15 Pulse Ox 96 11/24/24 10:15 O2 Del Method Room Air 11/24/24 10:15 BMI result Body Mass Index 20.8 Medical Decision Making Medical Decision Making MDM Narrative: Local irritation from biting on the nail in the patient with schizophrenia, no need for imaging or blood work Differential Diagnosis Differential Diagnoses: The differential diagnosis associated with the presentation includes (Nail loss, nail bed injury, cellulitis, felon, paronychia) Independent Historian Clinical information obtained from an independent historian. History obtained from or confirmed by: Friend Tests considered The following testing was considered but not selected: X-ray, blood work Prescription Management I considered prescription management with: Pain Medication and Antibiotic Discharge Plan Discharge Clinical Impression: Avulsion of skin Patient Disposition: Home, Self-Care Additional Instructions: Nail looks well, skin looks well no need for antibiotics, do not pick at it Prescriptions: No Action alendronate 70 mg tablet 70 mg PO FR Qty: 4 0RF sennosides-docusate sodium [Senna Plus] 8.6-50 mg Tablet 1 tab PO BID PRN (Reason: Constipation) Qty: 60 0RF melatonin 3 mg Tablet 6 mg PO BEDTIME Qty: 60 0RF lorazepam 0.5 mg Tablet 0.5 mg PO TID Qty: 90 0RF simvastatin 20 mg tablet 20 mg PO BEDTIME Qty: 30 0RF metoprolol tartrate 25 mg Tablet 25 mg PO BID Qty: 60 0RF Protocol: Hold for SBP/HR < HOLD for SBP < : 90 HOLD for HR < : 60 carbidopa-levodopa [Sinemet] 25-100 mg tablet 1 tab PO DAILY@0800,1200 Qty: 60 0RF Rx Instructions: administer 30-60 minutes before bedtime lorazepam [Ativan] 0.5 mg tablet 0.5 mg PO TID Qty: 90 0RF Rexulti 2 mg tablet 2 mg PO DAILY Qty: 30 0RF simvastatin 20 mg tablet 20 mg PO BEDTIME Qty: 30 0RF memantine 5 mg tablet 5 mg PO DAILY Qty: 30 0RF trazodone 100 mg tablet 100 mg PO BEDTIME Qty: 30 0RF Print Language: Maltese
[2024-11-24 13:14] VITALS: BP 118/78; PULSE 111; RESP 16; TEMP 36.4; O2SAT 96
== END 2024-11-24 13:15 | disposition home or self-care (01) ==
PROVIDERS: Emergency Provider Emergency Medicine; PCP Family Medicine
DX: S61.012A Laceration without foreign body of left thumb without damage to nail, initial encounter (principal); M79.642 Pain in left hand; W26.9XXA Contact with unspecified sharp object(s), initial encounter; Y93.9 Activity, unspecified; Y92.9 Unspecified place or not applicable; Y99.8 Other external cause status; Z87.891 Personal history of nicotine dependence
CPT/HCPCS: 99283; 99284

== ENCOUNTER 2024-12-03 09:42 | Outpatient (AMB) | payer MEDICARE, MEDICAID, SELFPAY ==
--- NOTE | 2024-12-03 09:56 | A.OFFVIS_ITS ---
Vital Signs 12/03/24 10:02 Height 5 ft 4 in Weight 108 lb BMI 18.5 BP 117/77 Blood Pressure Location Lt brachial Position Sitting Pulse 84 Intake Visit Reasons: gallstones Intake Note: Patient referred by pcp Dr. Winters to follow gallstones. Patient c/o: chronically getting UTI s and being hospitalized. Imaging: Abdomen pelvis US~ 01-10-2024 Fabrication Manager Required: No Accompanied by: daughter Kiana Allergies No Known Allergies Allergy (Verified 12/03/24 09:59) HPI HPI gallstones: Details: 69-year-old female with multiple medical problems including schizophrenia, hypertension, posttraumatic disorder, referred for gallstones I had actually seen her last December, when she was admitted because of rhabdomyolysis and hypothermia. She was found by the road side at that time after being report missing from home. She was also noted to have gallstones seen incidentally on a CAT scan at that time. This appeared to have been asymptomatic then. She has had recurrent UTIs the past year. She gets confused when she has UTIs and usually gets admitted to the behavioral health unit. In view of this recurrent UTI, she was referred to me for re-evaluation with regards to her abdomen. She denies any abdominal pain She lives in an apartment with a partner. However, she is not really functional with her care. According to her daughter Kiana who was with her during the visit, she needs a lot of help with daily activities but is resistant about getting help. Her daughter is trying to find a way to have somebody take care of her at home. [facility] Medical History Recurrent UTI Parkinson's disease without dyskinesia, with fluctuations Porcelain gallbladder Anxiety HLD (hyperlipidemia) HTN (hypertension) Schizophrenia Surgical History History of amputation of left great toe Social History Household Members: Friend(s) Household Members Other:: Roommate Housing: Apartment Do you presently have visiting nurse or other home services: Yes (Vera [phone]) Alcohol intake: former Comment: 5-min checks Patient Tobacco Use Status: Former Tobacco user e-Cigarette/Vaping Use: Never Used Advance Directives Date on File: 10/10/24 service: No Current 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 status: 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 Sexual orientation: Straight/Heterosexual Review of Systems Const Denies chills and Denies fever(s) Card Denies chest pain, Denies dyspnea and Denies dyspnea on exertion Resp Denies cough, Denies dyspnea and Denies dyspnea on exertion GI Denies hematochezia and Denies change in bowel habits Details: Recurrent UTI Denies hematuria Musc Denies back pain and Denies limited range of motion Neuro Denies focal weakness and Denies convulsions Psych Details: Has known schizophrenia Reports anxiety Physical Exam Const Other: Flat affect, very poor historian, does not offer much verbally General: comfortable and no acute distress Orientation/consciousness: patient oriented x3 Neck Neck: Yes no lymphadenopathy Resp Auscultation: clear to auscultation bilaterally Cardio Rhythm: regular rhythm GI Palpation (GI): Soft to palpation, nontender and no guarding Neuro General: patient oriented x3 Assessment & Plan Assessment & Plan (1) Recurrent UTI: Code(s): N39.0 - Urinary tract infection, site not specified Category: Medical Plan: She also has known gallstones and she was referred to the office because of her recurrent UTIs. Her primary care physician apparently was uncertain if there was any intra-abdominal problem that may be causing her to have recurrent UTIs I am going to order for a CAT scan of the abdomen and pelvis with IV contrast. I will see her again in the office thereafter She denies any abdominal pain otherwise. Her daughter Kiana was with her during the entire visit and was comfortable with the plan. Orders: Orders CT abdomen pelvis w IV con Today N39.0 - Urinary tract infection, site not specified Coding Level of Care Code Est Pt Level 3 (43157) Diagnoses Recurrent UTI N39.0
[2024-12-03 10:02] VITALS: BP 117/77; PULSE 84; BMI 18.5
--- OUTSIDE RECORDS SUMMARY | 2024-12-03 11:05 | XMS_ITS | Encounter Summary ---
Author Organization [employer] Address [address] [place] [address] Care Team Providers Care Felt Cementer Name Role Phone Luciana Winters MD Primary Care Provider [phone] Reason for Referral * Consultation (Urgent) - Denied Specialty Diagnoses / Procedures Referred By Contjose t Referred To Contact Diagnoses Basal cell carcinoma (BCC) of skin of other part of face Underweight Undifferentiated schizophrenia (CMS/HCC) Luciana Winters MD [address] [place] [address] Phone: tel: fax: [address] [address] Phone: tel: fax: Referral ID Status Reason Start Date Expiration Date V isits Requested Visits Authorized [id number] Denied Specialty Services Required 09/21/2024 09/21/2025 1 0 Encounter Details Date Type Department Care Team (Late st Contact Info) Description 09/21/2024 Orders Only [facility] MEDICINE [address] [place] [phone] Luciana Winters MD [address] [place] [address] [phone] Basal cell carcinoma (BCC) of skin of [...] Description 12/18/2024 1:30 PM EDT Office Visit [facility] [address] [place], [place] [phone] Luciana Winters MD [address] [place] [address] Scheduled Referrals Name Type Priority Associated Diagnoses [...] documented as of this encounter Care Teams Felt Cementer Relationship Specialty Start Date End Date Luciana Winters MD [address] [place] [address] PCP - General Family Medicine 03/28/18 Leena 08/01/24 documented as of this encounter
--- OUTSIDE RECORDS SUMMARY | 2024-12-03 11:05 | XMS_ITS | Encounter Summary ---
Author Organization [employer] [facility] Address [address] [place] [address] Care Team Providers Care Carton Inspector Name Role Phone Simon Katz MD Primary Care Provider [phone] Encounter Details Date Type Department Care Team (Late st Contact Info) Description 03/20/2024 Lab Requisition [facility] - Main Lab [address] [facility] [place] [address] Simon Katz MD [address] [place] [address] [address] [place], [phone] Essential (primary) hypertension Social History Tobacco Use [...] hypertension documented in this encounter Care Teams Carton Inspector Relationship Specialty Start Date End Date Simon Katz MD [address] [facility] [address] [place], [phone] PCP - General Family Medicine 02/03/24 documented as of this encounter
--- OUTSIDE RECORDS SUMMARY | 2024-12-03 11:05 | XMS_ITS | Encounter Summary ---
Author Organization [employer] Address [address] [place] [address] 7 [place] [address] Care Team Providers Care Metal Grader Name Role Phone Luciana Winters MD Primary Care Provider [phone] Reason for Visit * Reason Onset Date Comments Nurse Triage 05/27/2023 Encounter Details Date Type Department Care Team ([facility] st Contact Info) Description 05/27/2023 Telephone [facility] MEDICINE [address] [place], [place] [phone] Luciana Winters MD [address] [place], [place] [phone] Nurse Triage Social History Tobacco Use Types [...] Description 12/18/2024 1:30 PM EDT Office Visit [facility] MEDICINE [address] [place] [address] Luciana Winters MD [address] [place] [address] documented as of this encounter Visit Diagnoses Not on filedocumented in this encounter Additional Health Concerns Assessment Noted Time PHQ-9 Depression Total Score: 0 09/21/19 11:48 AM EDT documented as of this encounter Care Teams Metal Grader Relationship Specialty Start Date End Date Luciana Winters MD [address] [place] [address] PCP - General Family Medicine 03/28/18 [place] 03/20/24 08/06/24 Leena 08/01/24 documented as of this encounter
--- OUTSIDE RECORDS SUMMARY | 2024-12-03 11:05 | XMS_ITS | Encounter Summary ---
Author Organization [facility] Address [address] [place] [address] Care Team Providers Care Tin Can Laborer Name Role Phone Simon Katz MD Primary Care Provider [phone] Encounter Details Date Type Department Care Team (Late st Contact Info) Description 03/13/2024 Lab Requisition [facility] - Main Lab [address] [place] [address] Simon Katz MD 38 [facility] [address] [place], [phone] Essential (primary) hypertension Social History Tobacco [...] LAB CHEMISTRY METHOD 03/14/2024 11:31 AM EST [facility] Potassium 3.7 3.5 - 5.5 mmol/L LAB CHEMISTRY METHOD 03/14/2024 11:31 AM EST [facility] Chloride 110 96 - 110 mmol/L LAB CHEMISTRY METHOD 03/14/2024 11:31 AM [facility] CO2 25 21 - 32 mmol/L LAB CHEMISTRY METHOD 03/14/2024 11:31 AM [facility] Anion Gap 7 3 - 11 LAB CHEMISTRY METHOD 03/14/2024 11:31 AM [facility] Glucose 92 70 - 100 mg/dL LAB CHEMISTRY METHOD 03/14/2024 11:31 AM [facility] BUN 18 5 - 25 mg/dL LAB CHEMISTRY METHOD 03/14/2024 11:31 AM [facility] Creatinine 0.76 0.50 - 1.10 mg/dL LAB CHEMISTRY METHOD 03/14/2024 11:31 AM [facility] LAB eGFR 85 >=60 mL/min/1. 73m2 LAB CHEMISTRY METHOD 03/14/2024 11:31 AM [facility] Comment:Calculation based on the Chronic Kidney Disease Epidemiology Collaboration (CKD-EPI) equation refit without adjustment for race. BUN/Creatinine Ratio 23.7 LAB CHEMISTRY METHOD 03/14/2024 11:31 AM [facility] Calcium 9.1 8.5 - 10.5 mg/dL LAB CHEMISTRY METHOD 03/14/2024 11:31 AM [facility] Blood Venous blood specimen / Unknown Venipuncture / Unknown 03/14/2024 6:22 AM EST 03/14/2024 10:16 AM EST us Simon Katz MD LAB BLOOD ORDERABLES Final Resul t [facility] [address] [place] [address], * (ABNORMAL) Complete blood count (03/14/2024 6:22 AM EST) WBC 6.3 4.8 - 10.8 K/mcL LAB HEMETOLOGY METHOD 03/14/2024 11:04 AM EST [facility] RBC 3.80 3.80 - 4.80 M/mcL LAB HEMETOLOGY METHOD 03/14/2024 11:04 AM [facility] Hemoglobin 11.1(L) 11.5 - 16.0 g/dL LAB HEMETOLOGY METHOD 03/14/2024 11:04 AM [facility] Hematocrit 35.5 35.0 - 47.0 % LAB HEMETOLOGY METHOD 03/14/2024 11:04 AM [facility] MCV 93.2 79.0 - 98.0 FL LAB HEMETOLOGY METHOD 03/14/2024 11:04 AM [facility] MCH 29.1 27.0 - 32.0 pcg LAB HEMETOLOGY METHOD 03/14/2024 11:04 AM [facility] MCHC 31.3(L) 32.0 - 37.0 g/dL LAB HEMETOLOGY METHOD 03/14/2024 11:04 AM [facility] RDW 13.3 11.0 - 15.0 % LAB HEMETOLOGY METHOD 03/14/2024 11:04 AM [facility] Platelets 249 130 - 400 K/mcL LAB HEMETOLOGY METHOD 03/14/2024 11:04 AM [facility] MPV 12.7(H) 7.0 - 11.0 FL LAB HEMETOLOGY METHOD 03/14/2024 11:04 AM [facility] NRBC 0.0 <1.0 % LAB HEMETOLOGY METHOD 03/14/2024 11:04 AM [facility] NRBC Absolute 0.00 <0.10 K/mcL LAB HEMETOLOGY METHOD 03/14/2024 11:04 AM [facility] Blood Venous blood specimen / Unknown Venipuncture / Unknown 03/14/2024 6:22 AM EST 03/14/2024 10:14 AM EST us Simon Katz MD LAB BLOOD ORDERABLES Final Resul t [facility] [address] [place] [address], documented in this encounter Visit Diagnoses Diagnosis Essential (primary) hypertension Unspecified essential hypertension documented in this encounter Care Teams Tin Can Laborer Relationship Specialty Start Date End Date Simon Katz MD [address] [address] [address] [place], [phone] PCP - General Family Medicine 02/03/24 documented as of this encounter
--- OUTSIDE RECORDS SUMMARY | 2024-12-03 11:05 | XMS_ITS | Clinical Summary ---
Author Organization [address] Address [address] [place] [address] Phone Care Team Providers Care Filler Shredder Name Role Phone Simon Katz MD Primary Care Provider [phone] Social History Tobacco Use Types Packs/Day Years [...] 11/09/2005 Zoster Vaccines (1 of 2) 11/09/2005 Cholesterol Screening (Lipid Panel) 02/03/2024 Colorectal Cancer Screening: Colonoscopy 02/03/2024 Falls Risk Assessment 02/03/2024 Hepatitis C Screening 02/03/2024 Medicare Annual Wellness Visit 02/03/2024 Osteoporosis Screening (Bone Density Screening) 02/03/2024 Social Influencers of Health Screening 02/03/2024 Depression Screening 03/28/2024 COVID-19 Vaccine ( season) 2024 Influenza Vaccine (#1) 2024 Hypertension/CHF/CAD Annual BMP [...] mmol/L LAB CHEMISTRY METHOD 03/14/2024 11:31 AM [facility] Potassium 3.7 3.5 - 5.5 mmol/L LAB CHEMISTRY METHOD 03/14/2024 11:31 AM [facility] Chloride 110 96 - 110 mmol/L LAB CHEMISTRY METHOD 03/14/2024 11:31 AM [facility] CO2 25 21 - 32 mmol/L LAB CHEMISTRY METHOD 03/14/2024 11:31 AM [facility] Anion Gap 7 3 - 11 LAB CHEMISTRY METHOD 03/14/2024 11:31 AM [facility] Glucose 92 70 - 100 mg/dL LAB CHEMISTRY METHOD 03/14/2024 11:31 AM [facility] BUN 18 5 - 25 mg/dL LAB CHEMISTRY METHOD 03/14/2024 11:31 AM [facility] Creatinine 0.76 0.50 - 1.10 mg/dL LAB CHEMISTRY METHOD 03/14/2024 11:31 AM [facility] eGFR 85 >=60 mL/min/1. 73m2 LAB CHEMISTRY METHOD 03/14/2024 11:31 AM EST [facility] Comment:Calculation based on the Chronic Kidney Disease Epidemiology Collaboration (CKD-EPI) equation refit without adjustment for race. BUN/Creatinine Ratio 23.7 LAB CHEMISTRY METHOD 03/14/2024 11:31 AM EST [facility] Calcium 9.1 8.5 - 10.5 mg/dL LAB CHEMISTRY METHOD 03/14/2024 11:31 AM EST [facility] Blood Venous blood specimen / Unknown Venipuncture / Unknown 03/14/2024 6:22 AM EST 03/14/2024 10:16 AM EST us Simon Katz MD LAB BLOOD ORDERABLES Final Resul t [facility] [address] [place] [address], from Last 3 Months or Most Recently Relevant to Health Maintenance Insurance MEDICAID - [place] MEDICARE Care Teams Filler Shredder Relationship Specialty Start Date End Date Simon Katz MD [address], [phone] PCP - General Family Medicine 02/03/24
--- OUTSIDE RECORDS SUMMARY | 2024-12-03 11:05 | XMS_ITS | Encounter Summary ---
Author Organization [facility] Address [address] [place] [address] Care Team Providers Care Flasher Adjuster Name Role Phone Simon Katz MD Primary Care Provider [phone] Encounter Details Date Type Department Care Team (Late st Contact Info) Description 03/07/2024 Lab Requisition [facility] - Main Lab [address] [place] [address] Simon Katz MD [address] [facility] [address] [place], [phone] Essential (primary) hypertension; Poikiloderma vasculare atrophicans; [...] LAB CHEMISTRY METHOD 03/07/2024 12:[address] [facility] Potassium 3.8 3.5 - 5.5 mmol/L [...] PM [facility] Comment:Calculation based on the [...] Final Resul t [facility] [address] [place] [address], * (ABNORMAL) Complete blood count (03/07/2024 8:35 AM EST) [facility] WBC 5.4 4.8 - 10.8 K/mcL LAB [...] LAB HEMETOLOGY METHOD 03/07/2024 12:[address] [facility] Blood Venous blood specimen / Unknown Venipuncture / Unknown 03/07/2024 8:35 AM EST 03/07/2024 10:21 AM EST us Simon Katz MD LAB BLOOD ORDERABLES Final Resul t [facility] [address] [place] [address], documented in this encounter Visit Diagnoses Diagnosis Essential (primary) hypertension Unspecified essential hypertension Poikiloderma vasculare atrophicans Encounter for examination for admission to [facility] institution documented in this encounter Care Teams Flasher Adjuster Relationship Specialty Start Date End Date Simon Katz MD [address] [place] [address], [phone] PCP - General Family Medicine 02/03/24 documented as of this encounter
--- OUTSIDE RECORDS SUMMARY | 2024-12-03 11:05 | XMS_ITS | Encounter Summary ---
Author Organization [facility] Address [address] [place] [address] Care Team Providers Care Precision Aircraft Structure Assembler Name Role Phone Simon Katz MD Primary Care Provider [phone] Encounter Details Date Type Department Care Team (Late st Contact Info) Description 02/03/2024 Lab Requisition [facility] - Main Lab [address] [place] [address] Simon Katz MD [address] [place] [address] [address] [place], [address] Essential (primary) hypertension Social History Tobacco [...] LAB CHEMISTRY METHOD 02/06/2024 11:02 AM EST [facility] Potassium 3.9 3.5 - 5.5 mmol/L LAB CHEMISTRY METHOD 02/06/2024 11:02 AM EST [facility] Chloride 114(H) 96 - 110 mmol/L LAB CHEMISTRY METHOD 02/06/2024 11:02 AM EST [facility] CO2 26 21 [...] AM [facility] Comment:Calculation based on the Chronic [...] MD LAB BLOOD ORDERABLES Final Resul t [facility] [address] [place] [address], documented in this encounter Visit Diagnoses Diagnosis Essential (primary) hypertension Unspecified essential hypertension documented in this encounter Care Teams [employer] Aircraft Structure Assembler Relationship Specialty Start Date End Date Simon Katz MD 38 [facility] [address] [place], [phone] PCP - General Family Medicine 02/03/24 documented as of this encounter
--- OUTSIDE RECORDS SUMMARY | 2024-12-03 11:05 | XMS_ITS | Encounter Summary ---
Author Organization [employer] Address [address] [place] [address] [address] [place] [address] Care Team Providers Care Compressor Operator Adjuster Name Role Phone Luciana Winters MD Primary Care Provider [phone] Reason for Visit * Reason Onset Date Comments Referral 09/03/2022 Encounter Details Date Type Department Care Team ([facility] st Contact Info) Description 09/03/2022 Telephone [facility] [address] [place] [address] Luciana Winters MD [address] [place] [address] Referral Social History Tobacco Use Types Packs/Day [...] of shaking andshuffling. Please contact Loree at [phone] Ext [phone] documented in this encounter Plan of Treatment Upcoming Encounters Date Type Department Care Team (Late st Contact Info) Description 12/18/2024 1:30 PM EDT Office Visit [facility] [address] [place] [address] Luciana Winters MD [address] [place] [address] documented as of this encounter Visit Diagnoses Not on filedocumented in this encounter Care Teams Compressor Operator Adjuster Relationship Specialty Start Date End Date Luciana Winters MD [address] [place] [address] PCP - General Family Medicine 03/28/18 Jannette 03/20/24 08/06/24 Leena 08/01/24 documented as of this encounter
--- OUTSIDE RECORDS SUMMARY | 2024-12-03 11:05 | XMS_ITS | Encounter Summary ---
Author Organization [facility] Address [address] [place] [address] Care Team Providers Care Supervisor Sulfuric Acid Plant Name Role Phone Simon Katz MD Primary Care Provider [phone] Encounter Details Date Type Department Care Team (Late st Contact Info) Description 02/29/[address] [facility] - Main Lab [address] [place] [address] Simon Katz MD [address] [place] [address] [address] [place], [phone] Parkinsonism, unspecified (CMS/HCC V24, CMS/HCC V28) [...] mmol/L LAB CHEMISTRY METHOD 02/29/2024 12:14 PM [facility] CO2 25 21 - 32 mmol/L LAB CHEMISTRY METHOD 02/29/2024 12:14 PM [facility] Anion Gap 7 3 - 11 LAB CHEMISTRY METHOD 02/29/2024 12:14 PM [facility] Glucose 66(L) 70 - 100 mg/dL LAB CHEMISTRY METHOD 02/29/2024 12:14 PM [facility] BUN 23 5 - 25 mg/dL LAB CHEMISTRY METHOD 02/29/2024 12:14 PM [facility] Creatinine 0.74 0.50 - 1.10 mg/dL LAB CHEMISTRY METHOD 02/29/2024 12:14 PM [facility] eGFR 88 >=60 mL/min/1. 73m2 LAB CHEMISTRY METHOD 02/29/2024 12:14 PM [facility] Comment:Calculation based on the Chronic Kidney Disease Epidemiology Collaboration (CKD-EPI) equation refit without adjustment for race. BUN/Creatinine Ratio 31.1 LAB CHEMISTRY METHOD 02/29/2024 12:14 PM [facility] Calcium 8.9 8.5 - 10.5 mg/dL LAB CHEMISTRY METHOD 02/29/2024 12:14 PM [facility] AST (SGOT) 22 10 - 42 unit/L LAB CHEMISTRY METHOD 02/29/2024 12:14 PM [facility] ALT (SGPT) 24 10 - 60 unit/L LAB CHEMISTRY METHOD 02/29/2024 12:14 PM [facility] Alkaline Phosphatase 36(L) 42 - 121 unit/L LAB CHEMISTRY METHOD 02/29/2024 12:14 PM [facility] Total Protein 5.8(L) 6.0 - 8.0 g/dL LAB CHEMISTRY METHOD 02/29/2024 12:14 PM [facility] Albumin 3.2 3.2 - 5.0 g/dL LAB CHEMISTRY METHOD 02/29/2024 12:14 PM [facility] Total Bilirubin 0.4 0.0 - 1.4 mg/dL LAB CHEMISTRY METHOD 02/29/2024 12:14 PM [facility] Blood Venous blood specimen / Unknown Venipuncture / Unknown 02/29/2024 6:57 AM EST 02/29/2024 10:58 AM EST us Simon Katz MD LAB BLOOD ORDERABLES Final Resul t [facility] [address] [place] [address], [place] [phone] * (ABNORMAL) Complete blood count (02/29/2024 6:57 AM EST) WBC 5.6 4.8 - 10.8 K/mcL LAB HEMETOLOGY METHOD 02/29/2024 11:46 AM [facility] RBC 3.70(L) 3.80 - 4.80 M/[facility] LAB HEMETOLOGY METHOD 02/29/2024 11:46 AM [facility] Hemoglobin 10.8(L) 11.5 - 16.0 g/dL LAB HEMETOLOGY METHOD 02/29/2024 11:46 AM [facility] Hematocrit 34.4(L) 35.0 - 47.0 % LAB HEMETOLOGY METHOD 02/29/2024 11:46 AM [facility] MCV 93.7 79.0 - 98.0 FL LAB HEMETOLOGY METHOD 02/29/2024 11:46 AM [facility] MCH 29.4 27.0 - 32.0 pcg LAB HEMETOLOGY METHOD 02/29/2024 11:46 AM [facility] MCHC 31.4(L) 32.0 - 37.0 g/dL LAB HEMETOLOGY METHOD 02/29/2024 11:46 AM EST [facility] RDW 13.4 11.0 - 15.0 % LAB HEMETOLOGY METHOD 02/29/2024 11:46 AM [facility] Platelets 203 130 - 400 K/mcL LAB HEMETOLOGY METHOD 02/29/2024 11:46 AM [facility] MPV 13.6(H) 7.0 - 11.0 FL LAB HEMETOLOGY METHOD 02/29/2024 11:46 AM EST [facility] NRBC 0.0 <1.0 % LAB HEMETOLOGY METHOD 02/29/2024 11:46 AM [facility] NRBC Absolute 0.00 <0.10 K/mcL LAB HEMETOLOGY METHOD 02/29/2024 11:46 AM [facility] Blood Venous blood specimen / Unknown Venipuncture / Unknown 02/29/2024 6:57 AM EST 02/29/2024 10:58 AM EST us Simon Katz MD LAB BLOOD ORDERABLES Final Resul t [facility] [address] [place] [address], documented in this encounter Visit Diagnoses Diagnosis Parkinsonism, unspecified (CMS/HCC V24, CMS/HCC V28) documented in this encounter Care Teams Supervisor Sulfuric Acid Plant Relationship Specialty Start Date End Date Simon Katz MD [address] [place] [address] [address] [place], [phone] PCP - General Family Medicine 02/03/24 documented as of this encounter
--- OUTSIDE RECORDS SUMMARY | 2024-12-03 11:06 | XMS_ITS | Encounter Summary ---
Author Organization [employer] Address [address] [facility] [address] [place] [address] Care Team Providers Care Loom Fixer Supervisor Name Role Phone Luciana Winters MD Primary Care Provider [phone] Encounter Details Date Type Department Care Team ([facility] st Contact Info) Description 03/22/2024 Orders Only [facility] [address] [place] [address] Luciana Winters MD [address] [place] [address] Social History Tobacco Use Types Packs/Day Years [...] Description 12/18/2024 1:30 PM EDT Office Visit [facility] [address] [place] [address] Luciana Winters MD [address] [place] [address] documented as of this encounter Visit Diagnoses Not on filedocumented in this encounter Additional Health Concerns Assessment Noted Time PHQ-9 Depression Total Score: 3 12/20/19 24 1:29 PM EDT documented as of this encounter Care Teams Loom Fixer Supervisor Relationship Specialty Start Date End Date Luciana Winters MD [address] [place] [address] PCP - General Family Medicine 03/28/18 [facility] 03/20/24 08/06/24 Leena 08/01/24 documented as of this encounter
--- OUTSIDE RECORDS SUMMARY | 2024-12-03 11:06 | XMS_ITS | Clinical Summary ---
Author Organization [employer] Address [address] [facility] 7t [place] [address] Care Team Providers Care Scouts Name Role Phone Luciana Winters MD Primary Care Provider [phone] Allergies No known active allergies Medications * This document contains information received from the source organization and may not represent a complete record from that organization. carbidopa-levo dopa (Sinemet) 25-100 MG tablet TAKE 1 TABLET BY MOUTH IN THE MORNING AND AT NOON 3 Active ammonium lactate (Amlactin) 12 % cream Apply topically if needed for dry skin. 385 g 1 4 12/20/19 25 Active simvastatin (Zocor) 20 MG tablet Take 1 tablet (20 mg) by mouth in the evening. 90 tablet 3 5 Active cholecalcifero l (Vitamin D3) 25 MCG (1000 UT) tablet Take 1 tablet (25 mcg) by mouth in the morning. 90 tablet 3 5 Active benztropine (Cogentin) 0.5 MG tablet Take 1 tablet by mouth Once per day. 5 Active Rexulti 2 MG tablet Take 1 tablet by mouth Once per day. 5 Active memantine (Namenda) 5 MG tablet Take 1 tablet by mouth Once per day. 5 Active metoprolol tartrate (Lopressor) 25 MG tablet Take 1 tablet by mouth 2 times daily. 5 Active traZODone (Desyrel) 100 MG tablet Take 1 tablet by mouth at bedtime. 5 Active melatonin 3 MG tablet Take 2 tablets by mouth at bedtime. 5 Active LORazepam (Ativan) 0.5 MG tablet Take 1 tablet by mouth 3 times daily. 5 Active alendronate (Fosamax) 70 MG tablet TAKE 1 TABLET WEEKLY DIRECTED. SEE PACKAGE FOR ADDITIONAL INSTRUCTIONS 12 tablet 5 Active nitrofurantoin , macrocrystal-m onohydrate, (Macrobid) 100 MG capsule Take 1 capsule (100 mg) by mouth 2 times daily for 5 days. 10 capsule 5 11/09/19 Active Problems Problem Noted Date Diagnosed Date [...] PM EDT): - June 2024: Memory/cog: MOCA 16/30 [...] is not interested in going to see project geologist at this time. Assessment & Plan (08/21/2024 8:50 AM EDT): - Followed by Dr. Soriano, last seen in Dec 2022 - s/p excision of the forehead lesion by Dr. Wright in 2021 - continue sun protection -Pt states she is not interested in going to see project geologist at this time. Assessment & Plan (05/21/2024 1:17 PM EST): - Followed by Dr. Soriano, last seen in Dec 2022 - s/p excision of the forehead lesion by Dr. Wright in 2021 - continue sun protection -Pt states she is not interested in going to see project geologist at this time. Assessment & Plan (04/09/2024 [...] TD - continue Benztropine - evaluated by neurologistDr. Patterson in Oct [...] in 2017 - 2006 tubular adenoma - 2012 tubular [...] in Nov 2022 and February 2023 in [facility] [place] -Recent hospitalization at [facility] psych 09/28-10/22/2024. Schizophrenia. Catatonia. PTSD. Acute UTI. -Hospitalization frequency: every 1-2 mo. -[facility] providers: Clinical Support Option at [address] [place] [address] -Seeing counselor monthly and psych prescriber every [...] in Nov 2022 and February 2023 in [facility] [place] -Recent hospitalization at [facility] psych 07/04/24-07/31/24. Psychosis. PTSD. Acute UTI. -S providers: Clinical Support Option at [address] [place] [address] -Seeing counselor monthly and psych prescriber every [...] in Nov 2022 and February 2023 in [facility] [place] -[facility] providers: Clinical Support Option at [address] [place] [address] -Seeing counselor monthly and psych prescriber every 2-3 mo -Most recent medications prescribed by [employer] provide: Risperidone 1 mg in the morning, [...] in Nov 2022 and February 2023 in [facility] [place] -[facility] providers: Clinical Support Option at [address] [place] [address] -Seeing counselor monthly and psych prescriber every 2-3 mo -Most recent medications prescribed by [employer] provide: Risperidone 1 mg in the morning, [...] in Nov 2022 and February 2023 in [facility] [place] -[facility] providers: Clinical Support Option at [address] [place] [address] -Seeing counselor monthly and psych prescriber every 2-3 mo -Current medication: Risperidone 1 mg in the morning, 2 mg in the evening; benztropine 0.5 mg twice daily; quetiapine 50 mg at bedtime; -Previous medications: Perphenazine 8 mg daily; Benztropine, Quetiapine -Continue current medication and recommendations by [facility] providers. Assessment & Plan (09/13/2023 8:48 AM EDT): -Differential Dx Schizoaffective disorder -Hx 2nd daughter committed a suicide in 1999 -Hospitalization for attempted self-harm in Nov 2022 and February 2023 in [facility] [place] -[facility] providers: Clinical Support Option at [address] [place] [address] -Seeing counselor monthly and psych prescriber every 2-3 mo -Current medication: Risperidone 1 mg in the morning, 2 mg in the evening; benztropine 0.5 mg twice daily; quetiapine 50 mg at bedtime; -Previous medications: Perphenazine 8 mg daily; Benztropine, Quetiapine -Continue current medication and recommendations by [facility] providers. Assessment & Plan (07/25/2023 9:17 PM EDT): -Differential Dx Schizoaffective disorder -Hx 2nd daughter committed a suicide in 1999 -Hospitalization for attempted self-harm in Nov 2022 and February 2023 in [facility] [place] -[facility] providers: Clinical Support Option at [address] [place] [address] -Seeing counselor monthly and psych prescriber every 2-3 mo -Current medication: Risperidone 1 mg in the morning, 2 mg in the evening; benztropine 0.5 mg twice daily; quetiapine 50 mg at bedtime; -Previous medications: Perphenazine 8 mg daily; Benztropine, Quetiapine -Continue current medication and recommendations by [facility] providers. Assessment & Plan (03/12/2023 5:57 PM EST): -Differential Dx Schizoaffective disorder -Hx 2nd daughter committed a suicide in 1999 -Hospitalization recently for attempted self-harm in Nov 2022 in [facility] [place] -[facility] providers: Clinical Support Option at [address] [place] [address] -Seeing counselor monthly and psych prescriber every 2-3 mo -Current medication: Risperidone 1 mg in the morning, 2 mg in the evening; benztropine 0.5 mg twice daily; quetiapine 50 mg at bedtime; -Previous medications: Perphenazine 8 mg daily; Benztropine, Quetiapine -Continue current medication and recommendations by [facility] providers. Assessment & Plan (11/01/2022 3:45 PM EDT): -Hx 2nd daughter committed a suicide in 1999 -[facility] providers: Clinical Support Option at [address] [place] [address] -Seeing counselor monthly and psych prescriber every 2-3 mo -Current medication: Quetiapine; benztropine for EPS -Previous medication: Perphenazine 8 mg daily for many years, changed in 2022 -Continue current medication and recommendations by [facility] providers. Assessment & Plan (09/22/2022 6:35 AM EDT): -Hx 2nd daughter committed a suicide in 1999 -[facility] providers: Clinical Support Option at [address] [place] [address]. [place], [place] -Seeing counselor monthly and psych prescriber every 2-3 mo -Current medication: Perphenazine 8 mg daily; Benztropine, Quetiapine -Continue current medication and recommendations by [facility] providers. Vitamin D deficiency 12/03/2011 [...] CKD II- IIIa - previously followed by ophthalmic medical technician annually - no longer seeing ophthalmic medical technician - continue periodic lab - avoid nephrotoxins - keep adequate nutritional and fluid intake Assessment & Plan (08/25/2024 3:52 PM EDT): - usually CKD II- IIIa - previously followed by ophthalmic medical technician annually - no longer seeing ophthalmic medical technician - continue periodic lab - avoid nephrotoxins Assessment & Plan (05/21/2024 1:08 PM EST): - usually CKD II- IIIa - previously followed by ophthalmic medical technician annually - no longer seeing ophthalmic medical technician - 08/18/22 BUN 20, Scr 1.08, eGFR 57, K 3.9, Bicarb 26 -12/31/22 eGFR > 60 - continue periodic lab - avoid nephrotoxins Assessment & Plan (12/20/2023 2:27 PM EDT): - usually CKD II- IIIa - previously followed by ophthalmic medical technician annually - no longer seeing ophthalmic medical technician - 08/18/22 BUN 20, Scr 1.08, eGFR 57, K 3.9, Bicarb 26 -12/31/22 eGFR > 60 - continue periodic lab - avoid nephrotoxins Assessment & Plan (09/13/2023 8:46 AM EDT): - usually CKD II- IIIa - previously followed by ophthalmic medical technician annually - no longer seeing ophthalmic medical technician - 08/18/22 BUN 20, Scr 1.08, eGFR 57, K 3.9, Bicarb 26 -12/31/22 eGFR > 60 - continue periodic lab - avoid nephrotoxins Assessment & Plan (07/25/2023 9:14 PM EDT): - usually CKD II- IIIa - previously followed by ophthalmic medical technician annually - no longer seeing ophthalmic medical technician - 08/18/22 BUN 20, Scr 1.08, eGFR 57, K 3.9, Bicarb 26 -12/31/22 eGFR > 60 - continue periodic lab - avoid nephrotoxins Assessment & Plan (03/12/2023 6:13 PM EST): - usually CKD II- IIIa - previously followed by ophthalmic medical technician annually - no longer seeing ophthalmic medical technician - 08/18/22 BUN 20, Scr 1.08, eGFR 57, K 3.9, Bicarb 26 -12/31/22 eGFR > 60 - continue periodic lab - avoid nephrotoxins Assessment & Plan (11/01/2022 3:42 PM EDT): - usually CKD II- IIIa - previously followed by ophthalmic medical technician annually - no longer seeing ophthalmic medical technician - 08/18/22 BUN 20, Scr 1.08, eGFR 57, K 3.9, Bicarb 26 - continue periodic lab - avoid nephrotoxins Assessment & Plan (09/22/2022 6:14 AM EDT): - usually CKD II- IIIa - previously followed by ophthalmic medical technician annually - no longer seeing ophthalmic medical technician - check lab today Polyp of colon 02/24/2007 Resolved Problems Problem Noted Date Diagnosed Date Resolved Date Tachycardia 09/13/2023 2024 Assessment & Plan (09/13/2023 10:19 AM EDT): -HR 120 09/13/2023 -pt did not want to have any testing done -discussed referring for Holter monitor incase pt changes her mind Encounters Date Type Department Care Team Description 11/22/[address] [address] Luciana Winters MD ER Follow-up 11/05/2024 9:00 AM EDT Office Visit [address] [address] Luciana Winters MD Recurrent UTI (Primary Dx); Undifferentiated schizophrenia (CMS/HCC); Cognitive impairment; Tremor; Age-related osteoporosis without current pathological fracture; Essential hypertension; Dyslipidemia; Constipation, unspecified constipation type; PTSD (post-traumatic stress disorder); Basal cell carcinoma (BCC) of skin of other part of face; Weight loss; Moderate protein-calorie malnutrition (CMS/HCC); Porcelain gallbladder; Stage 3a chronic kidney disease (CMS/HCC); Lung nodules 11/05/2024 Travel 11/02/[address] [address] Luciana Winters MD chart prep 11/01/2024 Orders Only GENERIC EXTERNAL DATA DEPARTMENT Provider, Generic External Data 10/31/[address] [address] Luciana Winters MD 10/26/2024 Patient Outreach [facility] [address] [place] [address] Luciana Winters MD Transition Of Care (Tcm) (HDF scheduled. ) 10/26/[address] [address] Luciana Winters MD Hospital Follow-up 10/18/2024 Patient Outreach [address] [address] Luciana Winters MD Transition Of Care (Tcm) (HDF- scheduled with Kalpana [facility] screening needs to be complete it in office) ) 10/18/[address] [address] Luciana Winters MD Hospital Follow-up 09/27/[address] [address] Luciana Winters MD chart prep 09/24/[address] [phone] Luciana Winters MD Call Back Request; Medication Question 09/21/2024 Orders Only [address] [phone] Luciana Winters MD Basal cell carcinoma (BCC) of skin of other part of face (Primary Dx); Underweight; Undifferentiated schizophrenia (CMS/HCC) 09/18/[address] [phone] Luciana Winters MD ER Follow-up 09/06/[address] [phone] Luciana Winters MD Durable Medical Equipment (DME: [employer]) from Last 3 Months Immunizations Immunization Administration [...] is your housing situation today? I have vietsandhya ramos 12/20/[address] you [...] 12/18/2024 1:[address] [facility] [address] [place], [place] [phone] Luciana Winters MD [address] [place], [place] [phone] Health Maintenance Due Date Last Done Comments CT Colonography 1955 Dental Oral Exam 1955 Dental Prophylaxis 1955 Dental X-Ray: Bitewings 1955 Dental X-Ray: Full Mouth 1955 FIT DNA/Cologuard 1955 FIT 1955 FOBT 1955 Sigmoidoscopy 1955 Derm Melanoma Skin Check 05/12/1956 Colonoscopy 10/21/2022 10/21/2017 Colorectal Cancer Screening 10/21/2022 COVID-19 Vaccine ( season) 2024 08/13/2021, 03/31/2021, 06/24/2020, Additional history exists Influenza [...] procedure / Unknown 11/01/2024 11/01/2024 Comment:UACC Narrative [facility] - 11/03/2024 8:07 AM EDT Escherichia coli Quant > 100,000 cfu/mL Escherichia coli: Ampicillin <=2(S) Escherichia coli: Cefazolin (Urine) <=1(S) Escherichia coli: Cefepime <=0.12(S) Escherichia coli: Ceftriaxone <=0.25(S) Escherichia coli: Ciprofloxacin <=0.06(S) Escherichia coli: Gentamicin <=1(S) Escherichia coli: Nitrofurantoin <=16(S) Escherichia coli: Trimethoprim/Sulfamethoxazole <=20(S) Specimen Source: Urine clean catch Generic External Data Provider LAB MICROBIOLOGY - GENERAL ORDERABLES Final Result [facility] [address] [place] [phone] * Lipid Panel with Reflex to Direct LDL (08/15/2024 11:02 AM EDT) Triglycerides 73 <150 mg/dL [facility] Comment:Desirable Triglyceri de: less than 150 mg/dLBorderline High Triglyceride 150-199 mg/dLHigh Triglyceride: 200-499 mg/dLVery High Triglyceride: greater than or equal to 5OO mg/dL Cholesterol 132 <200 mg/dL [facility] Comment:Desirable Cholestero l: less than 200 mg/dLBorderline High Cholesterol: 200-239 mg/dLHigh Cholesterol: greater than 239 mg/dL LDL Cholesterol Calculated 73 <100 mg/dL [facility] Comment:Desirable LDL: less than 100 mg/dLNear Optimal/Above Optimal LDL: 110- 129 mg/dLBorderline High LDL: 130-159 mg/dLHigh LDL: 160-189 mg/dLVery High LDL: greater than or equal to 190 mg/dL HDL Cholesterol 45 >40 mg/dL [facility] Comment:Desirable HDL: great er than 40 mg/dL Note: This HDL assay may give artificially low results in patients with liver disease. Blood 08/15/2024 11:0 2 AM EDT 08/15/2024 1:06 PM EDT Luciana Winters MD LAB BLOOD ORDERABLES Final Resul t [facility] [address] [place] [phone] [phone] * BI Mammogram Screening Tomosynthesis Bilateral (02/21/2023 12:51 PM EST) Anatomical Region Laterality Modality Breast Bilateral Mammography 02/21/2023 12:5 1 PM EST Narrative 03/04/2023 2:27 PM EST [address] [place] [address] Mammography Report Signed Patient: Melia Harp MR#: [id number] : 1955 Acct:[id number] Age/Sex: 67 / F ADM Date: 02/21/23 Loc: MAMMSteve Attending Dr: Luciana Winters MD Ordering Physician: Luciana Winters MD Results: 1Negative Date of Service: 02/21/23 Follow Up: 1 Year From [facility] Mammogram Procedure(s): MM tomosynthesis screening BI Accession Number(s): [id number] cc: Luciana Winters MD EXAMINATION: MM SCREENING [...] in OV> 03/04/23 1423 DD/ 1251 TD/TT: Professional Bondsman: Procedure Note Donotuseinterpreter, Image - 03/04/20[facility] [address] [place], [place] [address] Mammography Report Signed Patient: Melia Harp MMR#: [id number] : 6Acct:[id number] Age/Sex: 67 / FADM Date: 02/21/23 Loc: [facility] Attending Dr: Luciana Winters MD Ordering Physician: Luciana Winters MDResults: 1Negative Date of Service: 02/21/23Follow Up: 1 Year From Orig inal Mammogram Procedure(s): MM tomosynthesis screening BI Accession Number(s): [id number] cc: Luciana Winters MD EXAMINATION: MM SCREENING [...] in OV> 03/04/23 1423 DD/ 1251 TD/TT: Professional Bondsman: Luciana Winters MD IMG BI PROCEDURES Final Result * Hepatitis C Antibody with Reflex to HCV, RNA, Quantitative, Real-Time PCR (08/18/2022 8:36 AM EDT) Hepatitis C Antibody NON-REACT CEASAR NON-REACT CEASAR [facility] Index 0.02 <1.00 [facility] Comment: HCV antibody was non-reactive. There is no laboratory evidence of HCV infection. In most cases, no further action is required. However, if recent HCV exposure is suspected, a test for HCV RNA (test code 31711) is suggested. For additional information please refer to http://education.[employer]/faq/JND95u9 (This link is being provided for informational/ educational purposes only.) Blood Venous blood specimen / Unknown 08/18/2022 8:36 AM EDT 08/18/2022 8:38 AM EDT Narrative [facility] - 08/19/2022 4:44 PM EDT FASTING:YES FASTING: YES [facility] LIME KILN WORKER HELPER LAB BLOOD ORDERABLES Final Re sult [facility] [address], [place] [address] [employer] [facility] [address] [place] [address] * Hm Colonoscopy (10/21/2017) Colonoscopy Normal Normal Historical Provider HEALTH MAINTENANCE Final Result from Last 3 Months or Most Recently Relevant to Health Maintenance Insurance [facility] STANDARD MEDICARE * Guarantor: Melia Harp Account Type Relation to Patient Date of Phone Billing Address Personal/Family Self [address] Care Teams Scouts Relationship Specialty Start Date End Date Luciana Winters MD [address] [place] [phone] PCP - General Family Medicine 03/28/18 Leena 08/01/24
--- OUTSIDE RECORDS SUMMARY | 2024-12-03 11:06 | XMS_ITS | Encounter Summary ---
Author Organization [employer] Address [address] [place] [address] 7 [place] [address] Care Team Providers Care Printing Shop Supervisor Name Role Phone Luciana Winters MD Primary Care Provider [phone] Encounter Details Date Type Department Care Team (Late st Contact Info) Description 06/17/2022 Orders Only [facility] [address] [place] [address] [phone] Luciana Winters MD [address] [place] [address] [phone] Essential hypertension (Primary Dx); Stage 2 chronic kidney disease; Dyslipidemia; Undifferentiated schizophrenia (CMS/[facility]) Social History Tobacco Use Types Packs/Day Years [...] Description 12/18/2024 1:30 PM EDT Office Visit [facility] [address] [place] [address] [phone] Luciana Winters MD [address] [place] [address] [phone] Scheduled Orders Name Type Priority Associated Diagnoses [...] (CMS/HCC) documented in this encounter Care Teams Printing Shop Supervisor Relationship Specialty Start Date End Date Luciana Winters MD [address] [place] [phone] PCP - General Family Medicine 03/28/18 Jannette 03/20/24 08/06/24 Leena 08/01/24 documented as of this encounter
--- OUTSIDE RECORDS SUMMARY | 2024-12-03 11:06 | XMS_ITS | Encounter Summary ---
Author Organization [employer] Address [address] [facility] 7t [place] [address] Care Team Providers Care Heat Treat Operator Name Role Phone Luciana Winters MD Primary Care Provider [phone] Reason for Visit * Reason Onset Date Comments Medication Question 03/20/2024 Encounter Details Date Type Department Care Team ([facility] Contact Info) Description 03/20/2024 Telephone [facility] [address] [place], [place] [phone] Luciana Winters MD [address] [place] [address] Medication Question Social History Tobacco Use Types [...] [facility] the [facility] Mirtazapine 7.5 mg as [...] 7.5 mg.) If any questions contact Nora: [phone] documented in this encounter Plan of Treatment Upcoming Encounters Date Type Department Care Team ([facility] st Contact Info) Description 12/18/2024 1:30 PM EDT Office Visit [facility] [address] [place] [address] Luciana Winters MD [address] [place] [address] documented as of this encounter Visit Diagnoses Not on filedocumented in this encounter Additional Health Concerns Assessment Noted Time PHQ-9 Depression Total Score: 3 12/20/19 24 1:29 PM EDT documented as of this encounter Care Teams Heat Treat Operator Relationship Specialty Start Date End Date Luciana Winters MD [address] [place] [address] PCP - General Family Medicine 03/28/18 [place] 03/20/24 08/06/24 Leena 08/01/24 documented as of this encounter
--- OUTSIDE RECORDS SUMMARY | 2024-12-03 11:06 | XMS_ITS | Encounter Summary ---
Author Organization [employer] Address [address] [place] [address] 7t [place] [address] Care Team Providers Care Adjuster Leader Name Role Phone Luciana Winters MD Primary Care Provider [phone] Reason for Visit * Reason Onset Date Comments Hospital Follow-up 10/18/2024 Encounter Details Date Type Department Care Team ([facility] st Contact Info) Description 10/18/2024 Telephone [facility] [address] [place], [place] [phone] Luciana Winters MD [address] [place], [place] [phone] Hospital Follow-up Social History Tobacco Use Types [...] from pt requesting a HDF appt. Hospital: [facility] Date of admission: 09/28 Discharge date: 10/22 Diagnosed: psychosis *Send message to [place] Clinical Care Coordinators Margarito at [facility] called to set up HDF if need to call before Tuesday contact [phone] documented in this encounter Plan of Treatment Upcoming Encounters Date Type Department Care Team (Late st Contact Info) Description 12/18/2024 1:30 PM EDT Office Visit [facility] [address] [place] [phone] Luciana Winters MD [address] [place] [address] documented as of this encounter Visit Diagnoses Not on filedocumented in this encounter Additional Health Concerns Assessment Noted Time PHQ-9 Depression Total Score: 3 12/20/19 24 1:29 PM EDT documented as of this encounter Care Teams Adjuster Leader Relationship Specialty Start Date End Date Luciana Winters MD [address] [place] [address] PCP - General Family Medicine 03/28/18 Leena 08/01/24 documented as of this encounter
--- OUTSIDE RECORDS SUMMARY | 2024-12-03 11:06 | XMS_ITS | Encounter Summary ---
Author Organization [employer] Address [address] [place] [address] 7 [place] [address] Care Team Providers Care Ct Scan Tech Name Role Phone Luciana Winters MD Primary Care Provider [phone] Encounter Details Date Type Department Care Team (Latest Contact Info) Description 05/04/2021 Abstract [facility] CONVERSIONS Dental, Provider, DDS Social History [...] Description 12/18/2024 1:30 PM EDT Office Visit [facility] [address] [place] [phone] Luciana Winters MD [address] [place] [phone] documented as of this encounter Visit Diagnoses Not on filedocumented in this encounter Care Teams Ct Scan Tech Relationship Specialty Start Date End Date Luciana Winters MD [address] [place] [phone] PCP - General Family Medicine 03/28/18 [facility] 03/20/24 08/06/24 Leena 08/01/24 documented as of this encounter
--- OUTSIDE RECORDS SUMMARY | 2024-12-03 11:06 | XMS_ITS | Encounter Summary ---
Author Organization [employer] Address [address] [place] [address] [address] [place] [address] Care Team Providers Care Director Digital Communications Name Role Phone Luciana Winters MD Primary Care Provider [phone] Reason for Visit * Reason Comments Med Refill Encounter Details Date Type Department Care Team (Late st Contact Info) Description 06/03/2022 Refill [facility] [address] [place], [place] [phone] Randee Sweeney MD [address] [place] [address] [phone] Hypertension, unspecified type; Hypertriglyceridemia Social History Tobacco [...] Description 12/18/2024 1:30 PM EDT Office Visit [facility] [address] [place], [place] [phone] Luciana Winters MD [address] [place], [place] [phone] documented as of this encounter Visit Diagnoses Diagnosis Hypertension, unspecified type Hypertriglyceridemia Pure hyperglyceridemia documented in this encounter Care Teams Director Digital Communications Relationship Specialty Start Date End Date Luciana Winters MD [address] [place] [id number] PCP - General Family Medicine 03/28/18 Jannette 03/20/24 08/06/24 Leena 08/01/24 documented as of this encounter
--- OUTSIDE RECORDS SUMMARY | 2024-12-03 11:06 | XMS_ITS | Encounter Summary ---
Author Organization [employer] Address [address] [place] [address] [address] [place] [address] Care Team Providers Care Service Center Representative Name Role Phone Luciana Winters MD Primary Care Provider [phone] Reason for Visit * Reason Onset Date Comments Hospital Follow-up 10/26/2024 Encounter Details Date Type Department Care Team ([facility] st Contact Info) Description 10/26/2024 Telephone [facility] [address] [place], [place] [phone] Luciana Winters MD [address] [place], [place] [phone] Hospital Follow-up Social History Tobacco Use Types [...] from pt requesting a HDF appt. Hospital: [facility] Date of admission: 10/02 Discharge date: 10/22 Diagnosed: Schizoaffective disorder *Send message to [facility] Care Coordinators documented in this encounter Plan of Treatment Upcoming Encounters Date Type Department Care Team (Late st Contact Info) Description 12/18/2024 1:30 PM EDT Office Visit [facility] [address] [place] [address] Luciana Winters MD [address] [place] [address] documented as of this encounter Visit Diagnoses Not on filedocumented in this encounter Additional Health Concerns Assessment Noted Time PHQ-9 Depression Total Score: 3 12/20/19 1:29 PM EDT documented as of this encounter Care Teams Service Center Representative Relationship Specialty Start Date End Date Luciana Winters MD [address] [place] [address] PCP - General Family Medicine 03/28/18 Leena 08/01/24 documented as of this encounter
== END 2024-12-03 10:12 | disposition home or self-care (01) ==
LOC: HO.HGS 09:42
PROVIDERS: PCP Family Medicine; Visit Provider Surgery
DX: N39.0 Urinary tract infection, site not specified (principal)
CPT/HCPCS: 99213

== ENCOUNTER → 2024-12-03 09:42 | Outpatient (BNVA) | payer MEDICARE, MEDICAID, SELFPAY | PROVIDERS: PCP Family Medicine; Visit Provider Surgery | DX: N39.0 Urinary tract infection, site not specified (principal) | CPT/HCPCS: 99212 ==

== ENCOUNTER 2025-01-09 13:32 | Outpatient (REF) | payer MEDICARE, MEDICAID, SELFPAY ==
--- NOTE | ~2025-01-09 | CT_ITS ---
CLINICAL HISTORY: N39.0 - Urinary tract infection, site not specified --- Additional Notes or Special Instructions: Call daughter Kiana for scheduling CT abdomen and pelvis with contrast Comparison: CT/SR - CT CHEST WO IV CON - 05/11/24 14:19 EST US/SR - US ABDOMEN LIMITED - 01/10/24 08:13 EDT Findings: Pulmonary nodules measure up to 5 mm in the right middle lobe, previously measuring 7 mm. Mild amount of secretions in the airways. Cholelithiasis. Peripheral calcification of the gallbladder. No gallbladder wall thickening or pericholecystic fluid. Mild wall thickening of the bladder. No bladder stone. No hydronephrosis or nephrolithiasis. Bilateral extrarenal pelvises. No focal decreased enhancement of the kidneys. The other solid organs are unremarkable. No bowel dilation. There is wall thickening of the colon with mucosal hyperenhancement. A normal appendix is identified. Colonic diverticulosis. The rectum is distended with stool, measuring 7.3 cm in transverse dimension. No aneurysm. Severe calcified atherosclerotic disease. No lymphadenopathy. No ascites. New moderate height loss of T11 with sclerosis and a fracture line. 5 mm retropulsion of fracture fragments. No involvement of the posterior elements. Impression: Wall thickening of the bladder likely indicate cystitis. No urinary tract stone or obstruction. No CT evidence of pyelonephritis. Colitis, infectious/inflammatory. Distention of the rectum with stool could be secondary to fecal impaction. New moderate height loss of T11. 5 mm retropulsion of fracture fragments. Sclerosis of the vertebra could be secondary to healing. A pathologic fracture may also be considered. This document has been electronically signed by: Kimberly Garrido MD on 01/10/2025 17:29:15
[2025-01-09] MEDS: iohexoL 350 MG/ML 100 ML INFUS..BTL IV (15:05)
[2025-01-09 15:37] LABS: Creatinine POC 0.8 mg/dL (0.5-1.4); GFR POC 60
== END 2025-01-09 13:33 | disposition home or self-care (01) ==
LOC: HO.CT 13:32
PROVIDERS: PCP Family Medicine; Visit Provider Surgery
DX: N39.0 Urinary tract infection, site not specified (principal)
CPT/HCPCS: 74177; 82565; Q9967

== ENCOUNTER → 2025-01-09 13:34 | Outpatient (BNV) | payer MEDICARE, MEDICAID, SELFPAY | PROVIDERS: PCP Family Medicine; Visit Provider Radiology Diagnostic Radiology | DX: N39.0 Urinary tract infection, site not specified (principal) | CPT/HCPCS: 74177 ==

== ENCOUNTER 2025-01-28 11:22 | Emergency (ER) | payer MEDICARE, MEDICAID, SELFPAY ==
--- NOTE | ~2025-01-28 | XR_ITS ---
EXAMINATION: XR CHEST CLINICAL INFORMATION: failure to thrive COMPARISON: January 09, 2024 x-ray [address] CT from May 11, 2024 TECHNIQUE: Frontal view of the chest was obtained. FINDINGS: Lungs are hyperexpanded with attenuation of pulmonary vessels in the upper lung zones. Biapical pleural nodular calcifications are noted. There is no pneumothorax. Lungs are clear. Heart size is within normal limits. Sclerotic lesion projecting over the mid to lateral scapula is consistent with a pedunculated exostosis visible on prior CT. XR/XR chest 1V IMPRESSION: Stable chronic nodular calcifications in the bilateral lung apices suggests chronic granulomatous disease. Lung hyperexpansion with attenuated upper lung pulmonary vascularity is consistent with mild changes of emphysema. Electronically signed by: Terry Solis MD 01/28/2025 12:30 PM [facility]
[2025-01-28 11:45] VITALS: BP 110/63; BP 144/98; PULSE 66; PULSE 80; RESP 16; TEMP 36.9; O2SAT 100; BMI 18.0
--- NOTE | 2025-01-28 11:50 | ED_ITS ---
HPI - Fall General Chief Complaint: Failure to Thrive Stated Complaint: fall, knee pain Time Seen by Provider: 01/28/25 11:42 Source: patient, EMS and old records reviewed Limitations: no limitations History of Present Illness ED Provider: DR. Evans HPI Narrative: 69-year-old xfemale with PMHx of schizophrenia, HTN, HLD, UTI, PTSD, anxiety presented by EMS for evaluation of failure to thrive and fall, patient is unable to care for herself at home patient lives home under care of ZOOLOGY TECHNICAL OFFICER who is currently hospitalized for the past 2 days and patient can not care for herself while her ZOOLOGY TECHNICAL OFFICER is in the hospital, patient also get VNA service who call the ambulance to take the patient to the hospital for further evaluation. Patient report that she has been able to feed herself cereal at home but not fully able to care for herself. While patient is transported patient scratch her right knee and restrepo in the wall with no fall,l or injury to the right knee, patient is still able to ambulate. Patient otherwise has no CP, no SOB, no abdominal pain. Related Data Previous Rx's ?Medication ?Instructions ?Recorded alendronate 70 mg tablet 70 mg PO FR #4 tabs 07/31/24 brexpiprazole 2 mg tablet (Rexulti) 2 mg PO DAILY #30 tabs 10/22/24 carbidopa 25 mg-levodopa 100 mg 1 tab PO DAILY@0800,12 00 #60 tabs 10/22/24 tablet (Sinemet) melatonin 3 mg tablet 6 mg (2 x 3 mg) PO BEDTIME # 60 tabs 10/22/24 memantine 5 mg tablet 5 mg PO DAILY #30 tabs 10/22 metoprolol tartrate 25 mg tablet 25 mg PO BID #60 tabs 10/22/24 sennosides 8.6 mg-docusate sodium 1 tab PO BID PRN Con stipation #60 10/22/24 50 mg tablet (Senna Plus) tabs simvastatin 20 mg tablet 20 mg PO BEDTIME #30 tabs simvastatin 20 mg tablet 20 mg PO BEDTIME #30 tabs trazodone 100 mg tablet 100 mg PO BEDTIME #30 tabs 0 10/22/24 Allergies Allergy/AdvReac Type Severity Reaction Status Date / Time No Known Allergies Allergy Verified 01/28/25 11:49 Review of Systems 2 Review of Systems: all other systems are reviewed and are negative Constitutional: Reports as per HPI and Reports no additional constitutional complaints Eyes: Reports as per HPI and Reports no additional eye complaints Reports system reviewed and no additional complaints, except as documented Cardiovascular: Reports as per HPI and Reports no additional cardiovascular complaints Respiratory: Reports as per HPI and Reports no additional respiratory complaints Gastrointestinal: Reports as per HPI and Reports no additional gastrointestinal complaints Genitourinary: Reports no additional female genitourinary complaints Musculoskeletal: Reports no additional musculoskeletal complaints Skin/Breast: Reports system reviewed and no additional complaints, except as docu Psychiatric: Reports no additional psychiatric complaints Endocrine: Reports no additional endocrine complaints Hematologic/Lymphatic: Reports no additional hematologic/lymphatic complaints Allergic/Immunologic: Reports no additional allergic/immunologic complaints Reports system reviewed and no additional complaints, except as documented and Reports Abnormal speech present [facility] Past Medical History Medical History History of amputation of left great toe Recurrent UTI Parkinson's disease without dyskinesia, with fluctuations Porcelain gallbladder Anxiety HLD (hyperlipidemia) HTN (hypertension) Schizophrenia Social History Social History Household Members: Friend(s) Household Members Other:: Roommate Housing: Apartment Do you presently have visiting nurse or other home services: Yes ([facility] [phone]) Alcohol intake: former Comment: 5-min checks Patient Tobacco Use Status: Former Tobacco user e-Cigarette/Vaping Use: Never Used Advance Directives: Yes Advance Directives on File: Yes Advance Directives Date on File: 10/10/24 service: No Current 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 status: 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 Blood pressure elevated. Heart rate normal. Respiratory rate normal. Temperature normal. Oxygen saturation normal. Appearance: Alert. Oriented X3. No acute distress. Head: Normal external exam. Normocephalic. Atraumatic. No Michelle signs noted. No raccoon eyes noted Eyes: PERRLA. EOMI. Conjunctiva and sclera normal. Eyelids normal. ENT: TM's Normal. Pharynx normal. Uvula midline. Moist mucous membranes. No trismus noted. No drooling noted. No muffled voice noted. Neck: Normal inspection. Neck supple. FROM. No adenopathy. Thyroid Normal. No meningeal signs. No neck mass noted. CVS: Normal heart rate and rhythm. Heart sound normal. No murmurs noted. Pulses normal throughout. Respiratory: No respiratory distress. Painless inspiration. Breath sounds normal. No wheezes/rales/rhonchi noted. Chest nontender. No accessory muscle usage noted or decreased air movement noted. Abdomen: Soft and nontender. Bowel sounds normal in all 4 quadrants. No distention noted. No organomegaly noted. No visible injury noted. Back: No CVA tenderness. Full range of motion noted. Skin: Skin warm and dry. Normal skin color. Normal skin turgor. No rashes/lesions/lacerations noted. Extremities: right lower extremity: Superficial abrasion on the restrepo with no active bleeding, no deformity, no step-off, mild tenderness over the abrasion, neurovascularly intact. Neuro: Oriented X 3. Cranial nerve exam: II-XII are grossly intact No motor deficit. No sensory deficit. Reflexes normal. Course Reevaluation(s) Reevaluation #1: Will continue with physician observation, awaiting for case management input for possible placement who arrange for ZOOLOGY TECHNICAL OFFICER. Time: 13:00 Medical Decision Making Differential Diagnosis Differential Diagnoses: The differential diagnosis associated with the presentation includes ( failure to thrive, medical clearance, electrolyte derangement, UTI, severe anemia.) Admission/Observation Consideration of admission/observation: Escalation of care including admission/observation considered Lab Data 01/28/25 13:23 01/28/25 13:23 Labs: Lab Results 01/28/25 01/28/25 Range/Units 12:39 13:23 WBC 6.0 (4.8-10.8) X10*3/uL RBC 5.06 (4.20-5.50) X10*6/uL Hgb 14.8 (12.0-16.0) g/dl Hct 46.1 (37.0-47.0) % MCV 91.1 (80.0-98.0) fL MCH 29.2 (27.0-33.0) pg MCHC 32.1 (31.0-35.0) g/dl RDW 12.8 (11.0-16.0) % Plt Count TNP MPV TNP Immature Gran % (Auto) 0.7 H (0.0-0.4) % Neut % (Auto) 58.9 (45-73) % Lymph % (Auto) 30.9 (20-40) % [place] % (Auto) 8.3 (2-11) % Eos % (Auto) 0.5 (0-4) % Baso % (Auto) 0.7 (0-2) % Lymph # (Auto) 1.9 (1.2-4.9) X10*3/uL [place] # (Auto) 0.5 (0.1-1.2) X10*3/uL Eos # (Auto) 0.0 (0.0-0.4) X10*3/uL Baso # (Auto) 0.0 (0.0-0.2) X10*3/uL Abs Immat Gran (auto) 0.04 H (0.00-0.03) X10*3/uL Absolute Neuts (auto) 3.5 (2.0-8.3) x10*3/uL Absolute Nucleated RBC 0.000 (0.0-0.012) X10*3/uL Nucleated RBC % (auto) 0.0 (0.0-0.2) /100WBC Smear Tech's Comments VERIFIED Sodium 140 (135-145) mmol/L Potassium 4.3 (3.3-5.1) mmol/L Chloride 106 (96-108) mmol/L Carbon Dioxide 21 L (22-29) mmol/L Anion Gap 17 (12-20) BUN 19 H (9-16) mg/dL Creatinine 0.72 (0.5-1.4) mg/dL Estim Creat Clear Calc 55.4 Estimated GFR > 60 Random Glucose 65 (60-115) mg/dL Calcium 9.5 D (8.4-10.2) mg/dL Total Bilirubin 1.4 H (0.0-1.0) mg/dL Direct Bilirubin 0.5 (0.0-0.5) mg/dL AST 47 H (5-31) U/L ALT 12 (0-31) U/L Alkaline Phosphatase 86 (39-117) U/L Troponin I High Sens 7.1 D (<3.5-17.0) ng/L Total Protein 7.7 (6.5-8.0) g/dL Albumin 4.6 (3.5-5.0) g/dL Lipase 26 (8-78) U/L Influenza Type A (PCR) NEGATIVE (Negative) Influenza Type B (PCR) NEGATIVE (Negative) RSV RNA Qual (PCR) NEGATIVE (Negative) SARS-CoV-2 RNA (RT-PCR) NEGATIVE (Negative) Discharge Plan Discharge Clinical Impression: Adult failure to thrive, Multiple falls Prescriptions: No Action alendronate 70 mg tablet 70 mg PO FR Qty: 4 0RF sennosides-docusate sodium [Senna Plus] 8.6-50 mg Tablet 1 tab PO BID PRN (Reason: Constipation) Qty: 60 0RF melatonin 3 mg Tablet 6 mg PO BEDTIME Qty: 60 0RF simvastatin 20 mg tablet 20 mg PO BEDTIME Qty: 30 0RF metoprolol tartrate 25 mg Tablet 25 mg PO BID Qty: 60 0RF Protocol: Hold for SBP/HR < HOLD for SBP < : 90 HOLD for HR < : 60 carbidopa-levodopa [Sinemet] 25-100 mg tablet 1 tab PO DAILY@0800,1200 Qty: 60 0RF Rx Instructions: administer 30-60 minutes before bedtime Rexulti 2 mg tablet 2 mg PO DAILY Qty: 30 0RF simvastatin 20 mg tablet 20 mg PO BEDTIME Qty: 30 0RF memantine 5 mg tablet 5 mg PO DAILY Qty: 30 0RF trazodone 100 mg tablet 100 mg PO BEDTIME Qty: 30 0RF Print Language: Iraqi
--- NOTE | 2025-01-28 11:56 | ECG_ITS ---
Test Reason : FAILURE TO THRIVE Blood Pressure : */* mmHG Vent. Rate : 55 BPM Atrial Rate : 55 BPM P-R Int : 116 ms QRS Dur : 78 ms QT Int : 426 ms P-R-T Axes : 81 67 55 degrees QTcB Int : 407 ms Sinus bradycardia Otherwise normal ECG When compared with ECG of 04-Jul-2024 14:06, No significant change was found Referred By: Reece Evans Electronically Signed By: Daljit Gomez
[2025-01-28 13:24] LABS: Resp Syncy Virus RNA Qual PCR NEGATIVE (Negative); SARS COV2 PCR INHOUSE NEGATIVE (Negative)
[2025-01-28 13:40] LABS: Hematocrit 46.1 % (37.0-47.0); Hemoglobin 14.8 g/dl (12.0-16.0); Imm Gran Abs Auto 0.04 X10*3/uL (0.00-0.03); Imm Gran Pct Auto 0.7 % (0.0-0.4); Lymphocytes Absolute Auto 1.9 X10*3/uL (1.2-4.9); MANUAL DIFF FLAG SCAN; Mean Corpuscular HGB Conc 32.1 g/dl (31.0-35.0); Mean Corpuscular Hemoglobin 29.2 pg (27.0-33.0); Mean Corpuscular Volume 91.1 fL (80.0-98.0); NRBC Abs Auto 0.000 X10*3/uL (0.0-0.012); NRBC Pct Auto 0.0 /100WBC (0.0-0.2); PLT CLUMP 1; Red Blood Count 5.06 X10*6/uL (4.20-5.50); SCAN SMEAR FLAG 1
[2025-01-28 13:42] LABS: White Blood Count 6.0 X10*3/uL (4.8-10.8)
[2025-01-28 13:44] LABS: Alanine Aminotransferase 12 U/L (0-31); Albumin Level 4.6 g/dL (3.5-5.0); Alkaline Phosphatase 86 U/L (39-117); Anion Gap 17 (12-20); Aspartate Amino Transferase 47 U/L (5-31); Blood Urea Nitrogen 19 mg/dL (9-16); Calcium 9.5 mg/dL (8.4-10.2); Carbon Dioxide 21 mmol/L (22-29); Chloride 106 mmol/L (96-108); Creatinine Clr Calc Pharmacy 55.4; Estimated Glomerular Filt Rate > 60; Lipase 26 U/L (8-78); Potassium 4.3 mmol/L (3.3-5.1); Sodium 140 mmol/L (135-145); Total Protein 7.7 g/dL (6.5-8.0)
[2025-01-28 13:50] LABS: Troponin-I High Sensitivity 7.1 ng/L (<3.5-17.0)
[2025-01-28 14:00] VITALS: BP 115/70; PULSE 64; RESP 16; TEMP 36.8; O2SAT 100
--- OUTSIDE RECORDS SUMMARY | 2025-01-28 15:10 | XMS_ITS | Encounter Summary ---
Author Organization [facility] Address [address] [place] [address] Care Team Providers Care Strategic Marketing Specialist Name Role Phone Simon Katz MD Primary Care Provider [phone] Encounter Details Date Type Department Care Team (Late st Contact Info) Description 03/07/2024 Lab Requisition [facility] - Main Lab [address] [place] [address] Simon Katz MD [address] [facility] [address] [place], [phone] Essential (primary) hypertension; Poikiloderma vasculare atrophicans; [...] LAB CHEMISTRY METHOD 03/07/2024 12:26 PM EST [facility] Potassium 3.8 3.5 - 5.5 [...] Resul t [facility] [address] [place] [address], * (ABNORMAL) Complete blood count (03/07/2024 8:35 AM EST) [facility] WBC 5.4 4.8 - 10.8 K/mcL [...] LAB HEMETOLOGY METHOD 03/07/2024 12:32 PM EST [facility] Blood Venous blood specimen / Unknown Venipuncture / Unknown 03/07/2024 8:35 AM EST 03/07/2024 10:21 AM EST us Simon Katz MD LAB BLOOD ORDERABLES Final Resul t [facility] [address] [place] [address], documented in this encounter Visit Diagnoses Diagnosis Essential (primary) hypertension Unspecified essential hypertension Poikiloderma vasculare atrophicans Encounter for examination for admission to [facility] institution documented in this encounter Care Teams Strategic Marketing Specialist Relationship Specialty Start Date End Date Simon Katz MD [address] [place] [address], [phone] PCP - General Family Medicine 02/03/24 documented as of this encounter
--- OUTSIDE RECORDS SUMMARY | 2025-01-28 15:10 | XMS_ITS | Encounter Summary ---
Author Organization [employer] Address [address] [place] [address] Care Team Providers Care Pharmacy Benefit Manager Name Role Phone Luciana Winters MD Primary Care Provider Reason for Referral * Consultation (Urgent) - Denied Specialty Diagnoses / Procedures Referred By Chandu perla Referred To Contact Diagnoses Basal cell carcinoma (BCC) of skin of other part of face Underweight Undifferentiated schizophrenia (CMS/HCC) (HCC) Luciana Winters MD [address] [place] [address] Phone: tel: fax: [address] [address] Phone: tel: fax: Referral ID Status Reason Start Date Expiration Date V isits Requested Visits Authorized [id number] Denied Specialty Services Required 09/21/2024 09/21/2025 1 0 Encounter Details Date Type Department Care Team (Late st Contact Info) Description 09/21/2024 Orders Only [facility] [address] [place] [phone] [phone] Luciana Winters MD [address] [place] [address] [phone] Basal cell carcinoma (BCC) of skin of [...] Care Team (Late st Contact Info) Description 02/18/2025 3:00 PM EST Office Visit [facility] [address] [place] [address] Luciana Winters MD [address] [place] [address] Scheduled Referrals Name Type Priority Associated Diagnoses Orde r Schedule Referral to Care Management Outpatient Referral Urgent Basal cell carcinoma (BCC) of skin of other part of face Underweight Undifferentiated schizophrenia (CMS/HCC) Expected: 09/21/2024 (Approximate), Expires: 09/21/2025 documented as of this encounter Visit Diagnoses Diagnosis Basal cell carcinoma (BCC) of skin of other part of face- Primary Underweight Undifferentiated schizophrenia (CMS/HCC) (HCC) documented in this encounter Additional Health Concerns Assessment Noted Time PHQ-9 Depression Total Score: 3 12/20/19 24 1:29 PM EDT documented as of this encounter Care Teams Pharmacy Benefit Manager Relationship Specialty Start Date End Date Luciana Winters MD [address] [place] [address] PCP - General Family Medicine 03/28/18 Leena 08/01/24 documented as of this encounter
--- OUTSIDE RECORDS SUMMARY | 2025-01-28 15:10 | XMS_ITS | Encounter Summary ---
Author Organization [facility] Address [address] [place] [address] Care Team Providers Care Tax Record Clerk Name Role Phone Simon Katz MD Primary Care Provider [phone] Encounter Details Date Type Department Care Team (Late st Contact Info) Description 02/29/2024 Lab Requisition [facility] - Main Lab [address] [place] [address] Simon Katz MD [address] [place] [address] [address] [place], [phone] Parkinsonism, unspecified (CMS/HCC V24, CMS/HCC V28) [...] LAB CHEMISTRY METHOD 02/29/2024 12:14 PM EST [facility] Potassium 4.3 3.5 - 5.5 mmol/L LAB CHEMISTRY METHOD 02/29/2024 12:14 PM EST [facility] Chloride 112(H) 96 - 110 mmol/L LAB CHEMISTRY METHOD 02/29/2024 12:14 PM [facility] CO2 25 21 - 32 mmol/L LAB CHEMISTRY METHOD 02/29/2024 12:14 PM [facility] Anion Gap 7 3 - 11 LAB CHEMISTRY METHOD 02/29/2024 12:14 PM [facility] Glucose 66(L) 70 - 100 mg/dL LAB CHEMISTRY METHOD 02/29/2024 12:14 PM [facility] BUN 23 5 - 25 mg/dL LAB CHEMISTRY METHOD 02/29/2024 12:14 PM [facility] Creatinine 0.74 0.50 - 1.10 mg/dL LAB CHEMISTRY METHOD 02/29/2024 12:14 PM [facility] eGFR 88 >=60 mL/min/1. 73m2 LAB CHEMISTRY METHOD 02/29/2024 12:14 PM [facility] Comment:Calculation based on the Chronic Kidney Disease Epidemiology Collaboration (CKD-EPI) equation refit without adjustment for race. BUN/Creatinine Ratio 31.1 LAB CHEMISTRY METHOD 02/29/2024 12:14 PM [facility] Calcium 8.9 8.5 - 10.5 mg/dL LAB CHEMISTRY METHOD 02/29/2024 12:14 PM [facility] AST (SGOT) 22 10 - 42 unit/L LAB CHEMISTRY METHOD 02/29/2024 12:14 PM [facility] ALT (SGPT) 24 10 - 60 unit/L LAB CHEMISTRY METHOD 02/29/2024 12:14 PM [facility] Alkaline Phosphatase 36(L) 42 - 121 unit/L LAB CHEMISTRY METHOD 02/29/2024 12:14 PM [facility] Total Protein 5.8(L) 6.0 - 8.0 g/dL LAB CHEMISTRY METHOD 02/29/2024 12:14 PM [facility] Albumin 3.2 3.2 - 5.0 g/dL LAB CHEMISTRY METHOD 02/29/2024 12:14 PM [facility] Total Bilirubin 0.4 0.0 - 1.4 mg/dL LAB CHEMISTRY METHOD 02/29/2024 12:14 PM [facility] Blood Venous blood specimen / Unknown Venipuncture / Unknown 02/29/2024 6:57 AM EST 02/29/2024 10:58 AM EST us Simon Katz MD LAB BLOOD ORDERABLES Final Resul t [facility] [address] [place] [address], [place] [phone] * (ABNORMAL) Complete blood count (02/29/2024 6:57 AM EST) WBC 5.6 4.8 - 10.8 K/mcL LAB HEMETOLOGY METHOD 02/29/2024 11:46 AM [facility] RBC 3.70(L) 3.80 - 4.80 M/[facility] LAB HEMETOLOGY METHOD 02/29/2024 11:46 AM [facility] Hemoglobin 10.8(L) 11.5 - 16.0 g/dL LAB HEMETOLOGY METHOD 02/29/2024 11:46 AM [facility] Hematocrit 34.4(L) 35.0 - 47.0 % LAB HEMETOLOGY METHOD 02/29/2024 11:46 AM [facility] MCV 93.7 79.0 - 98.0 FL LAB HEMETOLOGY METHOD 02/29/2024 11:46 AM [facility] MCH 29.4 27.0 - 32.0 pcg LAB HEMETOLOGY METHOD 02/29/2024 11:46 AM [facility] MCHC 31.4(L) 32.0 - 37.0 g/dL LAB HEMETOLOGY METHOD 02/29/2024 11:46 AM EST [facility] RDW 13.4 11.0 - 15.0 % LAB HEMETOLOGY METHOD 02/29/2024 11:46 AM [facility] Platelets 203 130 - 400 K/mcL LAB HEMETOLOGY METHOD 02/29/2024 11:46 AM [facility] MPV 13.6(H) 7.0 - 11.0 FL LAB HEMETOLOGY METHOD 02/29/2024 11:46 AM EST [facility] NRBC 0.0 <1.0 % LAB HEMETOLOGY METHOD 02/29/2024 11:46 AM [facility] NRBC Absolute 0.00 <0.10 K/mcL LAB HEMETOLOGY METHOD 02/29/2024 11:46 AM [facility] Blood Venous blood specimen / Unknown Venipuncture / Unknown 02/29/2024 6:57 AM EST 02/29/2024 10:58 AM EST us Simon Katz MD LAB BLOOD ORDERABLES Final Resul t [facility] [address] [place] [address], documented in this encounter Visit Diagnoses Diagnosis Parkinsonism, unspecified (CMS/HCC V24, CMS/HCC V28) documented in this encounter Care Teams Tax Record Clerk Relationship Specialty Start Date End Date Simon Katz MD [address] [place] [address] [address] [place], [phone] PCP - General Family Medicine 02/03/24 documented as of this encounter
--- OUTSIDE RECORDS SUMMARY | 2025-01-28 15:10 | XMS_ITS | Encounter Summary ---
Author Organization [facility] Address [address] [place] [address] Care Team Providers Care Field Health Officer Name Role Phone Simon Katz MD Primary Care Provider Encounter Details Date Type Department Care Team (Late st Contact Info) Description 03/20/2024 Lab Requisition [facility] - Main Lab [address] [facility] [place] [address] Simon Katz MD [address] [place] [address] [address] [place], [phone] Essential (primary) hypertension Social History Tobacco Use [...] hypertension documented in this encounter Care Teams Field Health Officer Relationship Specialty Start Date End Date Simon Katz MD [address] [facility] [address] [place], [phone] PCP - General Family Medicine 02/03/24 documented as of this encounter
--- OUTSIDE RECORDS SUMMARY | 2025-01-28 15:10 | XMS_ITS | Encounter Summary ---
Author Organization [employer] Address [address] [place] [address] [address] [place] [address] Care Team Providers Care Conche Loader And Unloader Name Role Phone Luciana Winters MD Primary Care Provider [phone] Reason for Visit * Reason Onset Date Comments Referral 09/03/2022 Encounter Details Date Type Department Care Team ([facility] st Contact Info) Description 09/03/2022 Telephone [facility]INE [address] [place] [phone] Luciana Winters MD [address] [place] [address] Referral Social History Tobacco Use Types Packs/Day [...] of shaking andshuffling. Please contact Loree at [phone] Ext [phone] documented in this encounter Plan of Treatment Upcoming Encounters Date Type Department Care Team (Late st Contact Info) Description 02/18/2025 3:00 PM EST Office Visit [facility] [address] [place] [address] Luciana Winters MD [address] [place] [phone] documented as of this encounter Visit Diagnoses Not on filedocumented in this encounter Care Teams Conche Loader And Unloader Relationship Specialty Start Date End Date Luciana Winters MD [address] [place] [phone] PCP - General Family Medicine 03/28/18 Jannette 03/20/24 08/06/24 Leena 08/01/24 documented as of this encounter
--- OUTSIDE RECORDS SUMMARY | 2025-01-28 15:10 | XMS_ITS | Encounter Summary ---
Author Organization [facility] Address [address] [place] [address] Care Team Providers Care Process Tech Name Role Phone Simon Katz MD Primary Care Provider [phone] Encounter Details Date Type Department Care Team (Late st Contact Info) Description 02/03/2024 Lab Requisition [facility] - Main Lab [address] [place] [address] Simon Katz MD [address] [place] [address] [address] [place], [phone] Essential (primary) hypertension Social History Tobacco [...] LAB CHEMISTRY METHOD 02/06/2024 11:02 AM EST [facility] Potassium 3.9 3.5 - 5.5 mmol/L LAB CHEMISTRY METHOD 02/06/2024 11:02 AM EST [facility] Chloride 114(H) 96 - 110 mmol/L LAB CHEMISTRY METHOD 02/06/2024 11:02 AM EST [facility] CO2 26 21 - 32 mmol/L LAB CHEMISTRY METHOD 02/06/2024 11:02 AM [facility] Anion Gap 6 3 - 11 LAB CHEMISTRY METHOD 02/06/2024 11:02 AM [facility] Glucose 70 70 - 100 mg/dL LAB CHEMISTRY METHOD 02/06/2024 11:02 AM [facility] BUN 20 5 - 25 mg/dL LAB CHEMISTRY METHOD 02/06/2024 11:02 AM [facility] Creatinine 0.72 0.50 - 1.10 mg/dL LAB CHEMISTRY METHOD 02/06/2024 11:02 AM [facility] eGFR 91 >=60 mL/min/1. 73m2 LAB CHEMISTRY METHOD 02/06/2024 11:02 AM [facility] Comment:Calculation based on the Chronic Kidney Disease Epidemiology Collaboration (CKD-EPI) equation refit without adjustment for race. BUN/Creatinine Ratio 27.8 LAB CHEMISTRY METHOD 02/06/2024 11:02 AM [facility] Calcium 8.9 8.5 - 10.5 mg/dL LAB CHEMISTRY METHOD 02/06/2024 11:02 AM [facility] Blood Venous blood specimen / Unknown Venipuncture / Unknown 02/06/2024 5:47 AM EST 02/06/2024 9:44 AM EST us Simon Katz MD LAB BLOOD ORDERABLES Final Resul t [facility] [address] [place] [address], documented in this encounter Visit Diagnoses Diagnosis Essential (primary) hypertension Unspecified essential hypertension documented in this encounter Care Teams Process Tech Relationship Specialty Start Date End Date Simon Katz MD [address] [facility] [address] [place], [phone] PCP - General Family Medicine 02/03/24 documented as of this encounter
--- OUTSIDE RECORDS SUMMARY | 2025-01-28 15:10 | XMS_ITS | Encounter Summary ---
Author Organization [employer] Address [address] [place] [address] [address] [place] [address] Care Team Providers Care Dead Mail Checker Name Role Phone Luciana Winters MD Primary Care Provider [phone] Encounter Details Date Type Department Care Team (Late st Contact Info) Description 01/28/2025 Orders Only GENERIC EXTERNAL DATA DEPARTMENT Provider, Generic External Data Social History Tobacco Use Types Packs/Day Years [...] Description 02/18/2025 3:00 PM EST Office Visit [facility] [address] [place], [place] [phone] Luciana Winters MD [address] [place] [address] documented as of this encounter Procedures Procedure Name Priority Date/Time Associated Diagnosis Comments SLIDE REVIEW Routine 01/28/2025 1:23 PM EST HIGH SENSITIVITY TROPONIN I Routine 01/28/2025 1:23 PM EST CBC WITH AUTO DIFFERENTIAL Routine 01/28/2025 1:23 PM EST LIPASE Routine 01/28/2025 1:23 PM EST HEPATIC FUNCTION PANEL Routine 01/28/2025 1:23 PM EST BASIC METABOLIC PANEL Routine 01/28/2025 1:23 PM EST SARS COV2/INFLUENZA A/B AND RSV RNA QL NAAT Routine 01/28/2025 12:39 PM EST documented in this encounter Results * Slide Review (01/28/2025 1:23 PM EST) Slide Review VERIFIED [facility] 01/28/2025 1:23 PM EST 01/28/2025 1:27 PM EST Generic External Data Provider LAB BLOOD ORDERAB LES Final Result Performing Organization Address [facility] Phone Number [facility] [address] [place] [phone] * High Sensitivity Troponin I (01/28/2025 1:23 PM EST) Pathologist [facility] TROPONIN I HIGH SENSITIVITY 7.1 <3.5 - 17.0 ng/L [facility] Comment:The Levy high sens itivity Troponin-I results should beused in conjunction with other diagnostic information suchas ECG, clinical observations and information, and patientsymptoms to aid in the diagnosis of AR. 01/28/2025 1:23 PM EST 01/28/2025 1:27 PM EST Generic External Data Provider LAB BLOOD ORDERAB LES Final Result Performing Organization Address [facility] [address] [place] [phone] * Lipase (01/28/2025 1:23 PM EST) [facility] Lipase 26 8 - 78 U/L [facility] 01/28/2025 1:23 PM EST 01/28/2025 1:27 PM EST Generic External Data Provider LAB BLOOD ORDERAB LES Final Result Performing Organization Address [facility] Phone Number [facility] [address] [place] [phone] * (ABNORMAL) Basic Metabolic Panel (01/28/2025 1:23 PM EST) [facility] Sodium 140 135 - 145 mmol/L [facility] Potassium 4.3 3.3 - 5.1 mmol/L [facility] Comment:Slight Hemolysis.Int erpret result with caution. Chloride 106 96 - 108 mmol/L [facility] Carbon Dioxide 21(L) 22 - 29 mmol/L [facility] Anion Gap 17 12 - 20 [facility] Urea Nitrogen (BUN) 19(H) 9 - 16 mg/dL [facility] Creatinine, Serum 0.72 0.5 - 1.4 mg/dL [facility] Creatinine Clr Calc Pharmacy 55.4 [facility] Comment:Provided height and weight: 162.56 cm,47.627 kg.eGFR (calculated from the MDRD study equation) and eCrCl(calculated from the Cockcroft-Gault equation) are based ondifferent parameters and may not yield comparable results.If eCrCl result is absurd, please check patient'sheight/weight. Estimated Glomerular Filt Rate >60 [facility] Comment:Chronic Kidney Disea se: Estimated GFR < 60 mL/min/1.81v1Flcotz Kidney Disease: Estimated GFR < 15 mL/min/1.73m2 Glucose 65 60 - 115 mg/dL [facility] Calcium 9.5 8.4 - 10.2 mg/dL [facility] 01/28/2025 1:23 PM EST 01/28/2025 1:27 PM EST us Generic External Data Provider LAB BLOOD ORDERAB LES Final Result [facility] [address] [place] [phone] * (ABNORMAL) Hepatic Function Panel (01/28/2025 1:23 PM EST) Bilirubin, Total 1.4(H) 0.0 - 1.0 mg/dL [facility] Bilirubin, Direct 0.5 0.0 - 0.5 mg/dL [facility] Aspartate Amino Transferase 47(H) 5 - 31 U/L [facility] Comment:Slight Hemolysis.Int erpret result with caution. Alanine Aminotransferase 12 0 - 31 U/L [facility] Total Protein 7.7 6.5 - 8.0 g/dL [facility] Albumin Level 4.6 3.5 - 5.0 g/dL [facility] Alkaline Phosphatase 86 39 - 117 U/L [facility] 01/28/2025 1:23 PM EST 01/28/2025 1:27 PM EST us Generic External Data Provider LAB BLOOD ORDERAB LES Final Result [facility] [address] [place] [phone] * (ABNORMAL) CBC auto differential (01/28/2025 1:23 PM EST) White Blood Count 6.0 4.8 - 10.8 X10*3/uL [facility] Red Blood Count 5.06 4.20 - 5.50 X10*6/uL [facility] Hemoglobin 14.8 12.0 - 16.0 g/dl [facility] Hematocrit 46.1 37.0 - 47.0 % [facility] Mean Corpuscular Volume 91.1 80.0 - 98.0 fL [facility] Mean Corpuscular Hemoglobin 29.2 27.0 - 33.0 pg [facility] Mean Corpuscular HGB Conc 32.1 31.0 - 35.0 g/dl [facility] Red Cell Distribution Width 12.8 11.0 - 16.0 % [facility] Platelet Count TNP 160 - 400 X10*3/uL [facility] Comment:Unable to obtain an accurate platelet count.Platelet clumps and fibrin strands noted on smear. Mean Platelet Volume TNP 9.4 - 12.3 fL [facility] Neutrophils Percent Auto 58.9 45 - 73 % [facility] Imm Gran Pct Auto 0.7(H) 0.0 - 0.4 % [facility] Lymphocytes Percent Auto 30.9 20 - 40 % [facility] Monocytes Percent Auto 8.3 2 - 11 % [facility] Eosinophils Percent Auto 0.5 0 - 4 % [facility] Basophils Percent Auto 0.7 0 - 2 % [facility] NRBC Pct Auto 0.0 0.0 - 0.2 /100WBC [facility] Neutrophils Absolute Auto 3.5 2.0 - 8.3 x10*3/uL [facility] Imm Gran Abs Auto 0.04(H) 0.00 - 0.03 X10*3/uL [facility] Lymphocytes Absolute Auto 1.9 1.2 - 4.9 X10*3/uL [facility] Monocytes Absolute Auto 0.5 0.1 - 1.2 X10*3/uL [facility] Eosinophils Absolute Auto 0.0 0.0 - 0.4 X10*3/uL [facility] Basophils Absolute Auto 0.0 0.0 - 0.2 X10*3/uL [facility] NRBC Abs Auto 0.000 0.0 - 0.012 X10*3/uL [facility] 01/28/2025 1:23 PM EST 01/28/2025 1:27 PM EST us Generic External Data Provider LAB BLOOD ORDERAB LES Edited Result - Final [facility] [address] [place] [phone] * SARS-CoV-2 RNA, Influenza A/B, and RSV RNA, Ql NAAT (01/28/2025 12:39 PM EST) Influenza A PCR NEGATIVE Negative [facility] Influenza B PCR NEGATIVE Negative [facility] Resp Syncy Virus RNA Qual PCR NEGATIVE Negative [facility] SARS COV2 PCR NEGATIVE Negative [facility] Comment:All test results mus t be correlated with clinical findings.Negative results do not preclude SARS-CoV2, influenza Avirus, influenza B virus and/or RSV infectionand should not be used as the sole basis for treatment orother patient management decisions. Negative results must becombined with clinical observations, patient history, andepidemiological information.This test has not been evaluated for monitoring treatment ofinfection.This test has been authorized by the FDA under an EmergencyUse Authorization (EUA) for use by authorized laboratories.Testing performed on the Cepheid GeneXpert utilizingreal-time RT-PCR.All SARS CoV2 and positive influenza A/B results arereported to [facility]. 01/28/2025 12:3 9 PM EST 01/28/2025 12:45 PM EST us Generic External Data Provider LAB MICROBIOLOGY - GENERAL ORDERABLES Final Result Performing Organization Address City/State/[facility] Co de Phone Number [facility] [address] [place] [phone] documented in this encounter Visit Diagnoses Not on filedocumented in this encounter Additional Health Concerns Assessment Noted Time PHQ-9 Depression Total Score: 3 12/20/19 24 1:29 PM EDT documented as of this encounter Care Teams Dead Mail Checker Relationship Specialty Start Date End Date Luciana Winters MD [address] [place] [phone] PCP - General Family Medicine 03/28/18 Leena 08/01/24 documented as of this encounter
--- OUTSIDE RECORDS SUMMARY | 2025-01-28 15:10 | XMS_ITS | Encounter Summary ---
Author Organization [employer] Address [address] [place] [address] 7 [place] [address] Care Team Providers Care Size Painter Name Role Phone Luciana Winters MD Primary Care Provider [phone] Reason for Visit * Reason Onset Date Comments Nurse Triage 05/27/2023 Encounter Details Date Type Department Care Team ([facility] st Contact Info) Description 05/27/2023 Telephone [facility] [address] [place], [place] [phone] Luciana Winters MD [address] [place], [place] [phone] Nurse Triage Social History Tobacco Use Types [...] Description 02/18/2025 3:00 PM EST Office Visit [facility] [address] [place] [phone] Luciana Winters MD [address] [place] [address] documented as of this encounter Visit Diagnoses Not on filedocumented in this encounter Additional Health Concerns Assessment Noted Time PHQ-9 Depression Total Score: 0 09/21/19 23 11:48 AM EDT documented as of this encounter Care Teams Size Painter Relationship Specialty Start Date End Date Luciana Winters MD [address] [place] [address] PCP - General Family Medicine 03/28/18 [place] 03/20/24 08/06/24 Leena 08/01/24 documented as of this encounter
--- OUTSIDE RECORDS SUMMARY | 2025-01-28 15:11 | XMS_ITS | Encounter Summary ---
Author Organization [employer] Address [address] [place] [address] 7 [place] [address] Care Team Providers Care Highway Design Engineer Name Role Phone Luciana Winters MD Primary Care Provider [phone] Encounter Details Date Type Department Care Team (Late st Contact Info) Description 06/17/2022 Orders Only [facility] [address] [place] [address] [phone] Luciana Winters MD [address] [place] [address] [phone] Essential hypertension (Primary Dx); Stage 2 chronic [...] Description 02/18/2025 3:00 PM EST Office Visit [facility] [address] [place] [address] [phone] Luciana Winters MD [address] [place] [address] [phone] Scheduled Orders Name Type Priority Associated Diagnoses [...] Other and unspecified hyperlipidemia Undifferentiated schizophrenia (CMS/HCC) (HCC) documented in this encounter Care Teams Highway Design Engineer Relationship Specialty Start Date End Date Luciana Winters MD [address] [place] [phone] PCP - General Family Medicine 03/28/18 Jannette 03/20/24 08/06/24 Leena 08/01/24 documented as of this encounter
--- OUTSIDE RECORDS SUMMARY | 2025-01-28 15:11 | XMS_ITS | Encounter Summary ---
Author Organization [employer] Address [address] [place] [address] [address] [place] [address] Care Team Providers Care Undercar Specialist Name Role Phone Luciana Winters MD Primary Care Provider [phone] Encounter Details Date Type Department Care Team (Latest Contact Info) Description 05/04/2021 Abstract [facility] Dental, Provider, DDS Social History [...] Description 02/18/2025 3:00 PM EST Office Visit [facility] [address] [place] [phone] Luciana Winters MD [address] [place] [phone] documented as of this encounter Visit Diagnoses Not on filedocumented in this encounter Care Teams Undercar Specialist Relationship Specialty Start Date End Date Luciana Winters MD [address] [place] [phone] PCP - General Family Medicine [facility] 03/[facility]24 08/06/24 Leena 08/01/24 documented as of this encounter
--- OUTSIDE RECORDS SUMMARY | 2025-01-28 15:11 | XMS_ITS | Clinical Summary ---
Author Organization [employer] Address [address] [facility] [address] [place] [address] Care Team Providers Care Critical Care Transport Nurse Name Role Phone Luciana Winters MD Primary Care Provider [phone] Allergies No known active allergies Medications * This document contains information received from the source organization and may not represent a complete record from that organization. carbidopa-levod opa (Sinemet) 25-100 MG tablet TAKE 1 TABLET BY MOUTH IN THE MORNING AND AT NOON 3 Active simvastatin (Zocor) 20 MG tablet Take [...] SEE PACKAGE FOR ADDITIONAL INSTRUCTIONS 12 tablet Active Active Problems Problem Noted Date Diagnosed Date Recurrent UTI 11/03/2024 Assessment & Plan (12/20/2024 9:54 PM EDT): - 3 episodes of UTI, confirmed by urine culture since June 2024, most recent urine culture on 11/01/2024 - Organism: pansensitive E. Coli. - Received TMP/SMX in June and September 2024 - Start Tx with nitrofurantoin - Discussed about further evaluation with renal / bladder US and urology referral; patient would like to consider after jury duty is cancelled Assessment & Plan (11/05/2024 12:35 PM EDT): [...] is cancelled Constipation 11/03/2024 Assessment & Plan (12/20/2024 9:53 PM EDT): - continue senna-docusate Assessment & Plan (11/03/2024 7:27 AM EDT): [...] stay. 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 Herrera in Nov 2024 and is now scheduled for CT scan Assessment & Plan (2024 6:57 AM EDT): [...] future Lung nodules 04/09/2024 Assessment & Plan (12/28/2024 5:10 PM EDT): - CT in Dec 2023: multiple solid pulmonary nodules, many with tree-in-bud/peribronchial cluster distribution most suggestive of infectious/inflammatory etiology, though malignancy not excluded. - CT in 05/15/24 showed a new right upper lobe nodule; will check the status of follow up CT Assessment & Plan (2024 6:44 AM EDT): [...] Protein calorie malnutrition 12/30/2023 Assessment & Plan (12/20/2024 9:53 PM EDT): - prescribed nutritional supplement - continue vitamin supplementation, periodic lab, and frequent meal and increase calorie-dense food intake Assessment & Plan (11/05/2024 12:32 PM EDT): [...] intake Weight loss 07/25/2023 Assessment & Plan (12/28/2024 5:05 PM EDT): -4 lb weight loss since Oct 2024 -Continue nutritional supplements. Assessment & Plan (11/05/2024 12:32 PM EDT): [...] skin of face 09/22 Assessment & Plan (12/28/2024 5:09 PM EDT): - Followed by Dr. Soriano, last seen in Dec 2022 - s/p excision of the forehead lesion by Dr. Wright in 2021 - continue sun protection - Pt has been hesitant to follow up with crystal growing technician. Her daughter states we can refer patient back to Dr. Soriano Assessment & Plan (11/09/2024 1:41 AM EDT): - Followed by Dr. Soriano, last seen in Dec 2022 - s/p excision of the forehead lesion by Dr. Wright in 2021 - continue sun protection -Pt states she is not interested in going to see crystal growing technician at this time. Assessment & Plan (08/21/2024 8:50 AM EDT): - Followed by Dr. Soriano, last seen in Dec 2022 - s/p excision of the forehead lesion by Dr. Wright in 2021 - continue sun protection -Pt states she is not interested in going to see crystal growing technician at this time. Assessment & Plan (05/21/2024 1:17 PM EST): - Followed by Dr. Soriano, last seen in Dec 2022 - s/p excision of the forehead lesion by Dr. Wright in 2021 - continue sun protection -Pt states she is not interested in going to see crystal growing technician at this time. Assessment & Plan (04/09/2024 [...] sun protection Osteoporosis 09/22/2022 Assessment & Plan (12/20/2024 9:52 PM EDT): -DEXA scan in Mar 2021 with lowest T score on -3.4. pt start alendronate 70 mg weekly since Mar 2021. -continue weight bearing exercises -DEXA on 10/26/23 T-score -0.9 - continue adequate vitamin D and calcium intake Assessment & Plan (11/09/2024 1:41 AM EDT): [...] MRI Essential hypertension 01/30/2015 Assessment & Plan (12/28/2024 5:04 PM EDT): -Goal BP < 130/80 per ACC/AHA guideline (Treatment threshold >= 140/90 ) -Continue working on lifestyle modifications -Recommended self-monitoring BP. -Continue metoprolol tartrate 25 mg bid. Advised to hold metoprolol if SBP is less than 100 or HR < 55 -Treatment Hx: Previously elevated BP, white-coat HTN, BP seems to have improved with recent weight loss. Previously on amlodipine, which was switched during last hospitalization. Metoprolol was discontinued during recent hospitalization, then restarted. Assessment & Plan (11/05/2024 12:22 PM EDT): [...] adenoma of colon 01/30/2015 Assessment & Plan (12/28/2024 5:08 PM EDT): - GI Dr. Boswell, last seen in Oct 2023 - 2006 tubular adenoma - 2013 tubular adenoma and hyperplastic polyp - 7/27/18 hyperplastic polyp - Pt declines a referral to GI for another colonoscopy Assessment & Plan (08/25/2024 3:51 PM EDT): [...] is solved Transaminitis 11/05/2014 Assessment & Plan (12/28/2024 5:06 PM EDT): - elevated AST/ALT when she was hospitalized after missing and found to be hypothermic in Dec 2023 - Most recent imaging: Limited US in Dec 2023 showed Multiple stones and sludge identified in the gallbladder. Evaluated by GI. - FIB4 index 7.74 - Scheduled for CT scan by Dr. Herrera Assessment & Plan (05/29/2024 10:22 AM EST): - elevated AST/ALT when she was hospitalized after missing and found to be hypothermic in Dec 2023 - Most recent imaging: Limited US in Dec 2023 showed Multiple stones and sludge identified in the gallbladder. Evaluated by GI. - FIB4 index 7.74 - Will consider evaluating with US; patient is hesitant Dyslipidemia 12/03/2011 Assessment & Plan (12/20/2024 9:49 PM EDT): -Most recent fasting lipid profile: 08/15/24 Total cholesterol 132; TG 73; HDL 45; LDL 73 -Current medications: simvastatin 20 mg daily; consider switching to atorvastatin - Treatment history: Previously on fenofibrate, which was discontinued - Emphasized the importance of lifestyle modification. Assessment & Plan (11/09/2024 1:40 AM EDT): [...] the importance of lifestyle modification. Undifferentiated schizophrenia ([facility]) 012 Assessment & Plan (12/20/2024 9:55 PM EDT): -Differential Dx Schizoaffective disorder -Hx 2nd daughter committed a suicide in 1999 -Hospitalization for attempted self-harm in Nov 2022 and February 2023 in [facility] [place] -Recent hospitalization at [facility] psych 09/28-10/22/2024. Schizophrenia. Catatonia. PTSD. Acute UTI. -Hospitalization frequency: every 1-2 mo. -[facility] providers: [facility] at [address] [place] [address] -Seeing counselor monthly and psych prescriber every [...] out to patient's roommate. Assessment & Plan (11/03/2024 7:29 AM EDT): -Differential Dx Schizoaffective disorder -Hx 2nd daughter committed a suicide in 1999 -Hospitalization for attempted self-harm in Nov 2022 and February 2023 in [facility] [place] -Recent hospitalization at [facility] psych 09/28-10/22/2024. Schizophrenia. Catatonia. PTSD. Acute UTI. -Hospitalization frequency: every 1-2 mo. -S providers: [facility] at [address] [place] [address] -Seeing counselor monthly and psych prescriber every [...] in Nov 2022 and February 2023 in [facility] [place] -Recent hospitalization at [facility] psych 07/04/24-07/31/24. Psychosis. PTSD. Acute UTI. -S providers: [facility] at [address] [place] [address] -Seeing counselor monthly and psych prescriber every [...] in Nov 2022 and February 2023 in [facility] [place] [facility] providers: [facility] at [address] [place] [address] -Seeing counselor monthly and psych prescriber every 2-3 mo -Most recent medications prescribed by [employer] provide: Risperidone 1 mg in the morning, [...] in Nov 2022 and February 2023 in [facility] psych unit -[facility] providers: [facility] at [address] [place] [address]. [place], [place] -Seeing counselor monthly and psych prescriber every 2-3 mo -Most recent medications prescribed by [employer] provide: Risperidone 1 mg in the morning, [...] in Nov 2022 and February 2023 in [facility] [place] [facility] providers: [facility] at [address] [place] [address] -Seeing counselor monthly and psych prescriber every 2-3 mo -Current medication: Risperidone 1 mg in the morning, 2 mg in the evening; benztropine 0.5 mg twice daily; quetiapine 50 mg at bedtime; -Previous medications: Perphenazine 8 mg daily; Benztropine, Quetiapine -Continue current medication and recommendations by [facility] providers. Assessment & Plan (09/13/2023 8:48 AM EDT): -Differential Dx Schizoaffective disorder -Hx 2nd daughter committed a suicide in 1999 -Hospitalization for attempted self-harm in Nov 2022 and February 2023 in [facility] [place] -[facility] providers: [facility] at [address] [place] [address] -Seeing counselor monthly and psych prescriber every 2-3 mo -Current medication: Risperidone 1 mg in the morning, 2 mg in the evening; benztropine 0.5 mg twice daily; quetiapine 50 mg at bedtime; -Previous medications: Perphenazine 8 mg daily; Benztropine, Quetiapine -Continue current medication and recommendations by [facility] providers. Assessment & Plan (07/25/2023 9:17 PM EDT): -Differential Dx Schizoaffective disorder -Hx 2nd daughter committed a suicide in 1999 -Hospitalization for attempted self-harm in Nov 2022 and February 2023 in [facility] -[facility] providers: [facility] at [address] [place] [address] -Seeing counselor monthly and psych prescriber every 2-3 mo -Current medication: Risperidone 1 mg in the morning, 2 mg in the evening; benztropine 0.5 mg twice daily; quetiapine 50 mg at bedtime; -Previous medications: Perphenazine 8 mg daily; Benztropine, Quetiapine -Continue current medication and recommendations by [facility] providers. Assessment & Plan (03/12/2023 5:57 PM EST): -Differential Dx Schizoaffective disorder -Hx 2nd daughter committed a suicide in 1999 -Hospitalization recently for attempted self-harm in Nov 2022 in [facility] -[facility] providers: [facility] at [address] [place] [address] -Seeing counselor monthly and psych prescriber every 2-3 mo -Current medication: Risperidone 1 mg in the morning, 2 mg in the evening; benztropine 0.5 mg twice daily; quetiapine 50 mg at bedtime; -Previous medications: Perphenazine 8 mg daily; Benztropine, Quetiapine -Continue current medication and recommendations by [facility] providers. Assessment & Plan (11/01/2022 3:45 PM EDT): -Hx 2nd daughter committed a suicide in 1999 -[facility] providers: [facility] at [address] [place] [address]. [place], [place] -Seeing counselor monthly and psych prescriber every 2-3 mo -Current medication: Quetiapine; benztropine for EPS -Previous medication: Perphenazine 8 mg daily for many years, changed in 2022 -Continue current medication and recommendations by [facility] providers. Assessment & Plan (09/22/2022 6:35 AM EDT): -Hx 2nd daughter committed a suicide in 1999 -[facility] providers: [facility] at [address] [place] [address]. [place], [place] -Seeing counselor monthly and psych prescriber every 2-3 mo -Current medication: Perphenazine 8 mg daily; Benztropine, Quetiapine -Continue current medication and recommendations by [facility] providers. Vitamin D deficiency 12/03/2011 Assessment & Plan (12/28/2024 5:05 PM EDT): - continue vitamin D Assessment & Plan (08/25/2024 3:50 PM EDT): - continue vitamin D Assessment & Plan (12/20/2023 2:27 PM EDT): - continue vitamin D Assessment & Plan (07/25/2023 11:04 AM EDT): - continue vitamin D Assessment & Plan (03/12/2023 5:52 PM EST): - continue vitamin D Assessment & Plan (11/01/2022 3:43 PM EDT): - continue vitamin D Stage 3a chronic kidney disease ([facility]) 2011 Assessment & Plan (11/05/2024 12:34 PM EDT): - usually CKD II- IIIa - previously followed by pathology assistant annually - no longer seeing pathology assistant - continue periodic lab - avoid nephrotoxins - keep adequate nutritional and fluid intake Assessment & Plan (08/25/2024 3:52 PM EDT): - usually CKD II- IIIa - previously followed by pathology assistant annually - no longer seeing pathology assistant - continue periodic lab - avoid nephrotoxins Assessment & Plan (05/21/2024 1:08 PM EST): - usually CKD II- IIIa - previously followed by pathology assistant annually - no longer seeing pathology assistant - 08/18/22 BUN 20, Scr 1.08, eGFR 57, K 3.9, Bicarb -12/31/22 eGFR > 60 - continue periodic lab - avoid nephrotoxins Assessment & Plan (12/20/2023 2:27 PM EDT): - usually CKD II- IIIa - previously followed by pathology assistant annually - no longer seeing pathology assistant - 08/18/22 BUN 20, Scr 1.08, eGFR 57, K 3.9, Bicarb 26 -12/31/22 eGFR > 60 - continue periodic lab - avoid nephrotoxins Assessment & Plan (09/13/2023 8:46 AM EDT): - usually CKD II- IIIa - previously followed by pathology assistant annually - no longer seeing pathology assistant - 08/18/22 BUN 20, Scr 1.08, eGFR 57, K 3.9, Bicarb -12/31/22 eGFR > 60 - continue periodic lab - avoid nephrotoxins Assessment & Plan (07/25/2023 9:14 PM EDT): - usually CKD II- IIIa - previously followed by pathology assistant annually - no longer seeing pathology assistant - 08/18/22 BUN 20, Scr 1.08, eGFR 57, K 3.9, Bicarb -12/31/22 eGFR > 60 - continue periodic lab - avoid nephrotoxins Assessment & Plan (03/12/2023 6:13 PM EST): - usually CKD II- IIIa - previously followed by pathology assistant annually - no longer seeing pathology assistant - 08/18/22 BUN 20, Scr 1.08, eGFR 57, K 3.9, Bicarb 26 -12/31/22 eGFR > 60 - continue periodic lab - avoid nephrotoxins Assessment & Plan (11/01/2022 3:42 PM EDT): - usually CKD II- IIIa - previously followed by pathology assistant annually - no longer seeing pathology assistant - 08/18/22 BUN 20, Scr 1.08, eGFR 57, K 3.9, Bicarb 26 - continue periodic lab - avoid nephrotoxins Assessment & Plan (09/22/2022 6:14 AM EDT): - usually CKD II- IIIa - previously followed by pathology assistant annually - no longer seeing pathology assistant - check lab today Resolved Problems Problem Noted Date Diagnosed Date Resolved Date Tachycardia 09/13/2023 2024 Assessment & Plan (09/13/2023 10:19 AM EDT): -HR 120 09/13/2023 -pt did not want to have any testing done -discussed referring for Holter monitor incase pt changes her mind Encounters Date Type Department Care Team Description 01/28/2025 Orders Only GENERIC EXTERNAL DATA DEPARTMENT Provider, Generic External Data 01/09/2025 Orders Only GENERIC EXTERNAL DATA DEPARTMENT Provider, Generic External Data 12/25/2024 Telephone [facility] [address] [place] [id number] Luciana Winters MD Referral 12/18/2024 1:30 PM EDT Office Visit [facility] [address] [place] [phone] Luciana Winters MD Essential hypertension (Primary Dx); Dyslipidemia; Moderate protein-calorie malnutrition (CMS/HCC); Age-related osteoporosis without current pathological fracture; Porcelain gallbladder; Constipation, unspecified constipation type; Transaminitis; Undifferentiated schizophrenia (CMS/HCC); PTSD (post-traumatic stress disorder); Recurrent UTI; Weight loss; Vitamin D deficiency; Polyp of colon, unspecified part of colon, unspecified type; Tubular adenoma of colon; Basal cell carcinoma (BCC) of skin of other part of face; Lung nodules 12/18/2024 Travel 12/17/[address] [address] Luciana Winters MD chart prep 12/03/[address] [address] Laura Lopez RN ER Follow-up 11/22/[address] [address] Luciana Winters MD ER Follow-up 11/05/2024 9:00 AM EDT Office Visit [address] [address] Luciana Winters MD Recurrent UTI (Primary Dx); Undifferentiated schizophrenia (CMS/HCC); Cognitive impairment; Tremor; Age-related osteoporosis without current pathological fracture; Essential hypertension; Dyslipidemia; Constipation, unspecified constipation type; PTSD (post-traumatic stress disorder); Basal cell carcinoma (BCC) of skin of other part of face; Weight loss; Moderate protein-calorie malnutrition (CMS/HCC); Porcelain gallbladder; Stage 3a chronic kidney disease (CMS/HCC); Lung nodules 11/05/2024 Travel 11/02/[address] [address] Luciana Winters MD chart prep 11/01/2024 Orders Only GENERIC EXTERNAL DATA DEPARTMENT Provider, Generic External Data 10/31/[address] [address] Luciana Winters MD from Last 3 Months Immunizations Immunization Administration [...] Sign Reading Time Taken Comments Blood Pressure 110/72 12/18/2024 1:31 PM EDT Pulse 64 12/18/2024 1:31 PM EDT Temperature 36.3 C (97.4 F) 12/18/2024 1:31 PM EDT Respiratory Rate 16 12/18/2024 1:31 PM EDT Oxygen Saturation 97% 12/18/2024 1:31 PM EDT Inhaled Oxygen Concentration - - Weight 46.4 kg (102 lb 3.2 oz) 12/18/2024 1:31 P M EDT Height 162.6 cm (5' 4 ) 12/18/2024 1:31 PM EDT Body Mass Index 17.54 12/18/2024 1:31 PM EDT Plan of Treatment Upcoming Encounters Date Type Department Care Team (Late st Contact Info) Description 02/18/2025 3:00 PM EST Office Visit [facility] [address] [place] [address] Luciana Winters MD [address] [place] [address] Health Maintenance Due Date Last Done Comments [...] Alcohol/Substance Use Screening 04/03/2025 04/03/2024 Tobacco Screening 12/18/2025 12/18/2024 Lipid Panel 08/15/2029 08/15/2024, 08/26, 10/26/2022, Additional [...] TROPONIN I Routine 01/28/2025 1:23 PM EST LIPASE Routine 01/28/2025 1:23 PM EST BASIC METABOLIC PANEL Routine 01/28/2025 1:23 PM EST HEPATIC FUNCTION PANEL Routine 1:23 PM EST CBC WITH AUTO DIFFERENTIAL Routine 01/28/2025 1:23 PM EST SARS COV2/INFLUENZA A/B AND RSV RNA QL NAAT Routine 01/28/2025 12:39 PM EST XR CHEST 1 VIEW Routine 01/28/2025 12:[address] ABDOMEN PELVIS W CONTRAST Routine 01/10/2025 5:29 PM EDT POCT CREATININE GFR Routine 01/09/2025 2 :40 PM EDT CULTURE, URINE, ROUTINE Routine 11/01/2024 12:00 AM [...] Recently Relevant to Health Maintenance Results * Slide Review (01/28/2025 1:23 PM EST) Slide Review VERIFIED [facility] 01/28/2025 1:23 PM EST 01/28/2025 1:27 PM EST us Generic External Data Provider LAB BLOOD ORDERAB LES Final Result [facility] [address] [place] [phone] * High Sensitivity Troponin I (01/28/2025 1:23 PM EST) [facility] [address] TROPONIN I HIGH SENSITIVITY 7.1 <3.5 - 17.0 ng/L [facility] Comment:The Levy high sens itivity Troponin-I results should beused in conjunction with other diagnostic information suchas ECG, clinical observations and information, and patientsymptoms to aid in the diagnosis of HI. 01/28/2025 1:23 PM EST 01/28/2025 1:27 PM EST us Generic External Data Provider LAB BLOOD ORDERAB LES Final Result [facility] [address] [place] [phone] * (ABNORMAL) CBC auto differential (01/28/2025 1:23 PM EST) [facility] [address] White Blood Count 6.0 4.8 - 10.8 X10*3/uL [facility] Red Blood Count 5.06 4.20 - 5.50 X10*6/uL [facility] Hemoglobin 14.8 12.0 - 16.0 g/dl [facility] Hematocrit 46.1 37.0 - 47.0 % [facility] Mean Corpuscular Volume 91.1 80.0 - 98.0 fL [facility] Mean Corpuscular Hemoglobin 29.2 27.0 - 33.0 pg [facility] Mean Corpuscular HGB Conc 32.1 31.0 - 35.0 g/dl [facility] Red Cell Distribution Width 12.8 11.0 - 16.0 % [facility] Platelet Count TNP 160 - 400 X10*3/uL [facility] Comment:Unable to obtain an accurate platelet count.Platelet clumps and fibrin strands noted on smear. Mean Platelet Volume TNP 9.4 - 12.3 fL [facility] Neutrophils Percent Auto 58.9 45 - 73 % [facility] Imm Gran Pct Auto 0.7(H) 0.0 - 0.4 % [facility] Lymphocytes Percent Auto 30.9 20 - 40 % [facility] Monocytes Percent Auto 8.3 2 - 11 % [facility] Eosinophils Percent Auto 0.5 0 - 4 % [facility] Basophils Percent Auto 0.7 0 - 2 % [facility] NRBC Pct Auto 0.0 0.0 - 0.2 /100WBC [facility] Neutrophils Absolute Auto 3.5 2.0 - 8.3 x10*3/uL [facility] Imm Gran Abs Auto 0.04(H) 0.00 - 0.03 X10*3/uL [facility] Lymphocytes Absolute Auto 1.9 1.2 - 4.9 X10*3/uL [facility] Monocytes Absolute Auto 0.5 0.1 - 1.2 X10*3/uL [facility] Eosinophils Absolute Auto 0.0 0.0 - 0.4 X10*3/uL [facility] Basophils Absolute Auto 0.0 0.0 - 0.2 X10*3/uL [facility] NRBC Abs Auto 0.000 0.0 - 0.012 X10*3/uL [facility] 01/28/2025 1:23 PM EST 01/28/2025 1:27 PM EST us Generic External Data Provider LAB BLOOD ORDERAB LES Edited Result - Final [facility] [address] [place] [phone] * Lipase (01/28/2025 1:23 PM EST) Lipase 26 8 - 78 U/L [facility] 01/28/2025 1:23 PM EST 01/28/2025 1:27 PM EST us Generic External Data Provider LAB BLOOD ORDERAB LES Final Result Performing Organization Address [facility] de Phone Number [facility] [address] [place] [phone] * (ABNORMAL) Hepatic Function Panel (01/28/2025 1:23 PM EST) Bilirubin, Total 1.4(H) 0.0 - 1.0 mg/dL [facility] Bilirubin, Direct 0.5 0.0 - 0.5 mg/dL [facility] Aspartate Amino Transferase 47(H) 5 - 31 U/L [facility] Comment:Slight Hemolysis.Int erpret result with caution. Alanine Aminotransferase 12 0 - 31 U/L [facility] Total Protein 7.7 6.5 - 8.0 g/dL [facility] Albumin Level 4.6 3.5 - 5.0 g/dL [facility] Alkaline Phosphatase 86 39 - 117 U/L [facility] 01/28/2025 1:23 PM EST 01/28/2025 1:27 PM EST us Generic External Data Provider LAB BLOOD ORDERAB LES Final Result Performing Organization Address [facility] de Phone Number [facility] [address] [place] [phone] * (ABNORMAL) Basic Metabolic Panel (01/28/2025 1:23 PM EST) Pathologist [facility] Sodium 140 135 - 145 mmol/L [facility] Potassium 4.3 3.3 - 5.1 mmol/L [facility] Comment:Slight Hemolysis.Int erpret result with caution. Chloride 106 96 - 108 mmol/L [facility] Carbon Dioxide 21(L) 22 - 29 mmol/L [facility] Anion Gap 17 12 - 20 [facility] Urea Nitrogen (BUN) 19(H) 9 - 16 mg/dL [facility] Creatinine, Serum 0.72 0.5 - 1.4 mg/dL [facility] Creatinine Clr Calc Pharmacy 55.4 [facility] Comment:Provided height and weight: 162.56 cm,47.627 kg.eGFR (calculated from the MDRD study equation) and eCrCl(calculated from the Cockcroft-Gault equation) are based ondifferent parameters and may not yield comparable results.If eCrCl result is absurd, please check patient'sheight/weight. Estimated Glomerular Filt Rate >60 [facility] Comment:Chronic Kidney Disea se: Estimated GFR < 60 mL/min/1.72l0Qrecsd Kidney Disease: Estimated GFR < 15 mL/min/1.73m2 Glucose 65 60 - 115 mg/dL [facility] Calcium 9.5 8.4 - 10.2 mg/dL [facility] 01/28/2025 1:23 PM EST 01/28/2025 1:27 PM EST us Generic External Data Provider LAB BLOOD ORDERAB LES Final Result [facility] [address] [place] [phone] * SARS-CoV-2 RNA, Influenza A/B, and RSV RNA, Ql NAAT (01/28/2025 12:39 PM EST) Influenza A PCR NEGATIVE Negative [facility] Influenza B PCR NEGATIVE Negative [facility] Resp Syncy Virus RNA Qual PCR NEGATIVE Negative [facility] SARS COV2 PCR NEGATIVE Negative [facility] Comment:All test results mus t [...] use by authorized laboratories.Testing performed on the [employer] GeneXpert utilizingreal-time RT-PCR.All SARS CoV2 and positive influenza A/B results arereported to [facility]. 01/28/2025 12:3 9 PM EST 01/28/2025 12:45 PM EST us Generic External Data Provider LAB MICROBIOLOGY - GENERAL ORDERABLES Final Result [facility] [address] [place] [phone] * XR Chest 1 View (01/28/2025 12:12 PM EST) Anatomical Region Laterality Modality Chest Radiographic Elizabeth ging 01/28/2025 12:1 2 PM EST Narrative 01/28/2025 12:33 PM EST [address] [address] XRay Report Signed Patient: Melia Harp MR#: [id number] 226 : 1955 Acct:[id number] Age/Sex: 69 / F ADM Date: 01/28/25 Loc: HO.ED Attending Dr: Ordering Physician: Reece Evans MD Date of Service: 01/28/25 Procedure(s): XR chest 1V Accession Number(s): [id number] cc: Reece Evans MD; Luciana Winters MD Reason for Exam: failure to thrive EXAMINATION: XR CHEST CLINICAL INFORMATION: failure to thrive COMPARISON: January 09, 2024 x-ray and CT from May 11, 2024 TECHNIQUE: Frontal view of the chest was obtained. FINDINGS: Lungs are hyperexpanded with attenuation of pulmonary vessels in the upper lung zones. Biapical pleural nodular calcifications are noted. There is no pneumothorax. Lungs are clear. Heart size is within normal limits. Sclerotic lesion projecting over the mid to lateral scapula is consistent with a pedunculated exostosis visible on prior CT. XR/XR chest 1V IMPRESSION: Stable chronic nodular calcifications in the bilateral lung apices suggests chronic granulomatous disease. Lung hyperexpansion with attenuated upper lung pulmonary vascularity is consistent with mild changes of emphysema. Electronically signed by: Terry Solis MD 01/28/2025 12:30 PM EST RP Dictated By: Terry Solis MD Signed By: <Electronically signed by Terry Solis MD in OV> 01/28/25 1230 DD/ 1212 TD/TT: 01/28/25 1225 Mma Fighter: Procedure Note Donotuseinterpreter, Image - 01/28/2025 [place] [address] XRay Report Signed Patient: Melia Harp MMR#: [id number] 226 : 6Acct:[id number] Age/Sex: 69 / FADM Date: 01/28/25 Loc: .ED Attending Dr: Ordering Physician: Reece Evans MD Date of Service: 01/28/25 Procedure(s): XR chest 1V Accession Number(s): [id number] cc: Reece Evans MD; Luciana Winters MD Reason for Exam: failure to thrive EXAMINATION: XR CHEST CLINICAL INFORMATION: failure to thrive COMPARISON: January 09, 2024 x-ray and CT from May 11, 2024 TECHNIQUE: Frontal view of the chest was obtained. FINDINGS: Lungs are hyperexpanded with attenuation of pulmonary vessels in the upper lung zones. Biapical pleural nodular calcifications are noted. There is no pneumothorax. Lungs are clear. Heart size is within normal limits. Sclerotic lesion projecting over the mid to lateral scapula is consistent with a pedunculated exostosis visible on prior CT. XR/XR chest 1V IMPRESSION: Stable chronic nodular calcifications in the bilateral lung apices suggests chronic granulomatous disease. Lung hyperexpansion with attenuated upper lung pulmonary vascularity is consistent with mild changes of emphysema. Electronically signed by: Terry Solis MD 01/28/2025 12:30 PM EST RP Dictated By: Terry Solis MD Signed By: <Electronically signed by Terry Solis MD in OV> 01/28/25 1230 DD/ 1212 TD/TT: 01/28/25 1225 Mma Fighter: us [facility] External Provider IMG XR PROCEDURES Edited Result - Final * CT Abdomen Pelvis w/ Contrast (01/10/2025 5:29 PM EDT) Anatomical Region Laterality Modality Body, Pelvis, Abdomen Computed T omography 01/10/2025 5:29 PM EDT Narrative 01/10/2025 5:29 PM EDT [place] [address] CT Scan Report Signed Patient: Melia Harp MR#: [id number] 226 : 1955 Acct:[id number] Age/Sex: 69 / F ADM Date: 01/09/25 Loc: HO.CT Attending Dr: Marco A Herrera MD Ordering Physician: Marco A Herrera MD Date of Service: 01/09/25 Procedure(s): CT abdomen pelvis w IV con Accession Number(s): [id number] cc: Marco A Herrera MD; Luciana Winters MD Report Number: [id number]: Total DLP = 205.00 mGy-cm Reason for Exam: N39.0 - Urinary tract infection, site not specified CLINICAL HISTORY: N39.0 - Urinary tract infection, site not specified --- Additional Notes or Special Instructions: Call daughter Kiana for scheduling CT abdomen and pelvis with contrast Comparison: CT/SR - CT CHEST WO IV CON - 05/11/24 14:19 EST US/SR - US ABDOMEN LIMITED - 01/10/24 08:13 EDT Findings: Pulmonary nodules measure up to 5 mm in the right middle lobe, previously measuring 7 mm. Mild amount of secretions in the airways. Cholelithiasis. Peripheral calcification of the gallbladder. No gallbladder wall thickening or pericholecystic fluid. Mild wall thickening of the bladder. No bladder stone. No hydronephrosis or nephrolithiasis. Bilateral extrarenal pelvises. No focal decreased enhancement of the kidneys. The other solid organs are unremarkable. No bowel dilation. There is wall thickening of the colon with mucosal hyperenhancement. A normal appendix is identified. Colonic diverticulosis. The rectum is distended with stool, measuring 7.3 cm in transverse dimension. No aneurysm. Severe calcified atherosclerotic disease. No lymphadenopathy. No ascites. New moderate height loss of T11 with sclerosis and a fracture line. 5 mm retropulsion of fracture fragments. No involvement of the posterior elements. Impression: Wall thickening of the bladder likely indicate cystitis. No urinary tract stone or obstruction. No CT evidence of pyelonephritis. Colitis, infectious/inflammatory. Distention of the rectum with stool could be secondary to fecal impaction. New moderate height loss of T11. 5 mm retropulsion of fracture fragments. Sclerosis of the vertebra could be secondary to healing. A pathologic fracture may also be considered. This document has been electronically signed by: Kimberly Garrido MD on 01/10/2025 17:29:15 Dictated By: Kimberly Read MD Signed By: <Electronically signed by Kimberly Read MD in OV> 01/10/251728 DD/ 28 TD/TT: 01/10/251728 Mma Fighter: Procedure Note Donotuseinterpreter, Image - 01/10/[address] [place] [address] [address] Scan Report Signed Patient: Melia Harp MMR#: [id number] 226 : 6Acct:[id number] Age/Sex: 69 / FADM Date: 01/09/25 Loc: .CT Attending Dr: Marco A Herrera MD Ordering Physician: Marco A Herrera MD Date of Service: 01/09/25 Procedure(s): CT abdomen pelvis w IV con Accession Number(s): [id number] cc: Marco A Herrera MD; Luciana Winters MD Report Number: [id number]: Total DLP = 205.00 mGy-cm Reason for Exam: N39.0 - Urinary tract infection, site not specified CLINICAL HISTORY: N39.0 - Urinary tract infection, site not specified ---Additional Notes or Special Instructions: Call daughter Kiana for scheduling CT abdomen and pelvis with contrast Comparison: CT/SR - CT CHEST WO IV CON - 05/11/24 14:19 EST US/SR - US ABDOMEN LIMITED - 01/10/24 08:13 EDT Findings: Pulmonary nodules measure up to 5 mm in the right middle lobe, previously measuring 7 mm. Mild amount of secretions in the airways. Cholelithiasis. Peripheral calcification of the gallbladder. No gallbladder wall thickening or pericholecystic fluid. Mild wall thickening of the bladder. No bladder stone. No hydronephrosis or nephrolithiasis. Bilateral extrarenal pelvises. No focal decreased enhancement of the kidneys. The other solid organs are unremarkable. No bowel dilation. There is wall thickening of the colon with mucosal hyperenhancement. A normal appendix is identified. Colonic diverticulosis. The rectum is distended with stool, measuring 7.3 cm in transverse dimension. No aneurysm. Severe calcified atherosclerotic disease. No lymphadenopathy. No ascites. New moderate height loss of T11 with sclerosis and a fracture line. 5 mm retropulsion of fracture fragments. No involvement of the posterior elements. Impression: Wall thickening of the bladder likely indicate cystitis. No urinary tract stone or obstruction. No CT evidence of pyelonephritis. Colitis, infectious/inflammatory. Distention of the rectum with stool could be secondary to fecal impaction. New moderate height loss of T11. 5 mm retropulsion of fracture fragments. Sclerosis of the vertebra could be secondary to healing. A pathologic fracture may also be considered. This document has been electronically signed by: Kimberly Garrido MD on 01/10/2025 17:29:15 Dictated By: Kimberly Read MD Signed By: <Electronically signed by Kimberly Read MD in OV> 01/10/251728 DD/ 28 TD/TT: 01/10/251728 Mma Fighter: [facility] External Provider IMG CT PROCEDURES Final Result * POCT Creatinine GFR (01/09/2025 2:40 PM EDT) POCT Creatinine 0.8 0.5 - 1.4 mg/dL [facility] GFR POC 60 [facility] Comment:Chronic Kidney Disea se: Estimated GFR < 60 mL/min/1.94d5Tlonbp Kidney Disease: Estimated GFR < 15 mL/min/1.73m2 01/09/2025 2:40 PM EDT 01/09/2025 3:34 PM EDT Narrative [facility] - 01/09/2025 3:37 PM EDT [id number] Generic External Data Provider LAB POINT OF CARE TEST DOCKED DEVICE ORDERABLES Final Result Performing Organization Address [facility] Co de Phone Number [facility] [address] [place] [phone] * Culture, Urine, Routine (11/01/2024 12:00 AM EDT) Urine Urine specimen obtained by clean catch procedure / Unknown 11/01/2024 11/01/2024 Comment:UACC Narrative [facility] - 11/03/2024 8:07 AM EDT [...] GENERAL ORDERABLES Final Result Performing Organization Address [facility] de Phone Number [facility] [address] [place] [phone] * Lipid Panel with Reflex to Direct LDL (08/15/2024 11:02 AM EDT) Triglycerides 73 <150 mg/dL [facility] Comment:Desirable Triglyceri de: less than 150 mg/dLBorderline High Triglyceride 150-199 mg/dLHigh Triglyceride: 200-499 mg/dLVery High Triglyceride: greater than or equal to 5OO mg/dL Cholesterol 132 <200 mg/dL [facility] Comment:Desirable Cholestero l: less than 200 mg/dLBorderline High Cholesterol: 200-239 mg/dLHigh Cholesterol: greater than 239 mg/dL LDL Cholesterol Calculated 73 <100 mg/dL [facility] Comment:Desirable LDL: less than 100 mg/dLNear Optimal/Above Optimal LDL: 110- 129 mg/dLBorderline High LDL: 130-159 mg/dLHigh LDL: 160-189 mg/dLVery High LDL: greater than or equal to 190 mg/dL HDL Cholesterol 45 >40 mg/dL [facility] Comment:Desirable HDL: great er than 40 mg/dL Note: This HDL assay may give artificially low results in patients with liver disease. Blood 08/15/2024 11:0 2 AM EDT 08/15/2024 1:06 PM EDT us Luciana Winters MD LAB BLOOD ORDERABLES Final Resul t [facility] [address] [place] [phone] * BI Mammogram Screening Tomosynthesis Bilateral (02/21/2023 12:51 PM EST) Anatomical Region Laterality Modality Breast Bilateral Mammography 02/21/2023 12:5 1 PM EST Narrative 03/04/2023 2:27 PM EST [address] [place] [address] Mammography Report Signed Patient: Melia Harp MR#: [id number] 226 : 1955 Acct:[id number] Age/Sex: 67 / F ADM Date: 02/21/23 Loc: HO.MAMMO Attending Dr: Luciana Winters MD Ordering Physician: Luciana Winters MD Results: 1Negative Date of Service: 02/21/23 Follow Up: 1 Year From Orig ina Mammogram Procedure(s): MM tomosynthesis screening BI Accession Number(s): [id number] cc: Luciana Winters MD EXAMINATION: MM SCREENING [...] in OV> 03/04/23 1423 DD/ 1251 TD/TT: Mma Fighter: Procedure Note Donotuseinterpreter, Image - 03/04/2023 [facility] [address] [place], [place] [address] Mammography Report Signed Patient: Melia Harp [facility]#: [id number] 226 : 6Acct:[id number] Age/Sex: 67 / FADM Date: 02/21/23 Loc: [facility] Attending Dr: Luciana Winters MD Ordering Physician: Luciana Winters MDResults: 1Negative Date of Service: 02/21/23Follow Up: 1 Year From [facility] Mammogram Procedure(s): MM tomosynthesis screening BI Accession Number(s): [id number] cc: Luciana Winters MD EXAMINATION: MM SCREENING [...] in OV> 03/04/23 1423 DD/ 1251 TD/TT: Mma Fighter: Luciana Winters MD IMG BI PROCEDURES Final Result * Hepatitis C Antibody with Reflex to HCV, RNA, Quantitative, Real-Time PCR (08/18/2022 8:36 AM EDT) Hepatitis C Antibody NON-REACT CEASAR NON-REACT CEASAR [employer] Index 0.02 <1.00 [employer] Comment: HCV antibody was non-reactive. There is no laboratory evidence of HCV infection. In most cases, no further action is required. However, if recent HCV exposure is suspected, a test for HCV RNA (test code 09136) is suggested. For additional information please refer to http://education.[employer]/faq/KLU00v9 (This link is being provided for informational/ educational purposes only.) Blood Venous blood specimen / Unknown 08/18/2022 8:36 AM EDT 08/18/2022 8:38 AM EDT Narrative [facility] - 08/19/2022 4:44 PM EDT FASTING:YES FASTING: YES [facility] LAB BLOOD ORDERABLES Final Re sult [facility] [address], [place] [address] [employer] [address] [place] [address] * Hm Colonoscopy (10/21/2017) Colonoscopy Normal Normal Historical Provider HEALTH MAINTENANCE Final Result from Last 3 Months or Most Recently Relevant to Health Maintenance Insurance [place] [phone] * Guarantor: Melia Harp Account Type Relation to Patient Date of Phone Billing Address Personal/Family Self [address] Care Teams Critical Care Transport Nurse Relationship Specialty Start Date End Date Luciana Winters MD [address] [place] [address] PCP - General Family Medicine 03/28/18 Leena 08/01/24
--- OUTSIDE RECORDS SUMMARY | 2025-01-28 15:11 | XMS_ITS | Encounter Summary ---
Author Organization [facility] Address [address] [place] [address] Care Team Providers Care Stationary Engineer Name Role Phone Simon Katz MD Primary Care Provider [phone] Encounter Details Date Type Department Care Team (Late st Contact Info) Description 03/13/[address] [facility] - Main Lab [address] [place] [address] Simon Katz MD [address] [facility] [address] [place], [phone] Essential (primary) hypertension Social History Tobacco [...] LAB CHEMISTRY METHOD 03/14/2024 11:31 AM EST [facility] Potassium 3.7 3.5 - 5.5 mmol/L LAB CHEMISTRY METHOD 03/14/2024 11:31 AM EST [facility] Chloride 110 96 - 110 mmol/L LAB CHEMISTRY METHOD 03/14/2024 11:31 AM [facility] CO2 25 21 - 32 mmol/L LAB CHEMISTRY METHOD 03/14/2024 11:31 AM [facility] Anion Gap 7 3 - 11 LAB CHEMISTRY METHOD 03/14/2024 11:31 AM [facility] Glucose 92 70 - 100 mg/dL LAB CHEMISTRY METHOD 03/14/2024 11:31 AM [facility] BUN 18 5 - 25 mg/dL LAB CHEMISTRY METHOD 03/14/2024 11:31 AM [facility] Creatinine 0.76 0.50 - 1.10 mg/dL LAB CHEMISTRY METHOD 03/14/2024 11:31 AM [facility] eGFR 85 >=60 mL/min/1. 73m2 LAB CHEMISTRY METHOD 03/14/2024 11:31 AM [facility] Comment:Calculation based on the Chronic Kidney Disease Epidemiology Collaboration (CKD-EPI) equation refit without adjustment for race. BUN/Creatinine Ratio 23.7 LAB CHEMISTRY METHOD 03/14/2024 11:31 AM [facility] Calcium 9.1 8.5 - 10.5 mg/dL LAB CHEMISTRY METHOD 03/14/2024 11:31 AM [facility] Blood Venous blood specimen / Unknown Venipuncture / Unknown 03/14/2024 6:22 AM EST 03/14/2024 10:16 AM EST us Simon Katz MD LAB BLOOD ORDERABLES Final Resul t [facility] [address] [place] [address], * (ABNORMAL) Complete blood count (03/14/2024 6:22 AM EST) WBC 6.3 4.8 - 10.8 K/mcL LAB HEMETOLOGY METHOD 03/14/2024 11:04 AM EST [facility] RBC 3.80 3.80 - 4.80 M/mcL LAB HEMETOLOGY METHOD 03/14/2024 11:04 AM [facility] Hemoglobin 11.1(L) 11.5 - 16.0 g/dL LAB HEMETOLOGY METHOD 03/14/2024 11:04 AM [facility] Hematocrit 35.5 35.0 - 47.0 % LAB HEMETOLOGY METHOD 03/14/2024 11:04 AM [facility] MCV 93.2 79.0 - 98.0 FL LAB HEMETOLOGY METHOD 03/14/2024 11:04 AM [facility] MCH 29.1 27.0 - 32.0 pcg LAB HEMETOLOGY METHOD 03/14/2024 11:04 AM [facility] MCHC 31.3(L) 32.0 - 37.0 g/dL LAB HEMETOLOGY METHOD 03/14/2024 11:04 AM [facility] RDW 13.3 11.0 - 15.0 % LAB HEMETOLOGY METHOD 03/14/2024 11:04 AM [facility] Platelets 249 130 - 400 K/mcL LAB HEMETOLOGY METHOD 03/14/2024 11:04 AM [facility] MPV 12.7(H) 7.0 - 11.0 FL LAB HEMETOLOGY METHOD 03/14/2024 11:04 AM [facility] NRBC 0.0 <1.0 % LAB HEMETOLOGY METHOD 03/14/2024 11:04 AM [facility] NRBC Absolute 0.00 <0.10 K/mcL LAB HEMETOLOGY METHOD 03/14/2024 11:04 AM [facility] Blood Venous blood specimen / Unknown Venipuncture / Unknown 03/14/2024 6:22 AM EST 03/14/2024 10:14 AM EST us Simon Katz MD LAB BLOOD ORDERABLES Final Resul t [facility] [address] [place] [address], documented in this encounter Visit Diagnoses Diagnosis Essential (primary) hypertension Unspecified essential hypertension documented in this encounter Care Teams Stationary Engineer Relationship Specialty Start Date End Date Simon Katz MD [address] [place] [address] [address] [place], [phone] PCP - General Family Medicine 02/03/24 documented as of this encounter
--- OUTSIDE RECORDS SUMMARY | 2025-01-28 15:11 | XMS_ITS | Clinical Summary ---
Author Organization [address] [facility] Address [address] [place] [address] Phone Care Team Providers Care Training Director Name Role Phone Simon Katz MD Primary Care Provider [phone] Social History Tobacco Use Types Packs/Day Years Used Date Smoking Tobacco: Never Assessed Comments Unknown Sex and Gender Information Value Date Recorded Sex Assigned at Not on file Legal Sex Female 11:48 AM EST Gender Identity Not on file Sexual Orientation Not on file Plan of Treatment Health Maintenance Due Date Last Done Comments Breast Cancer Screening 1955 Colorectal Cancer Screening: Colonoscopy 1955 DTaP,Tdap,and Td Vaccines (1 - Tdap) 11/09/1974 Pneumococcal Vaccine: 50+ Ye ars (1 of 1 - PCV) 11/09/2005 Zoster Vaccines (1 of 2) 11/09/2005 Falls Risk Assessment 02/03/2024 Hepatitis C Screening 02/03/2024 Medicare Annual Wellness Visit 02/03/2024 Osteoporosis Screening (Bone Density Screening) 02/03/2024 Social Influencers of Health Screening 02/03/2024 Depression Screening 03/28/2024 COVID-19 Vaccine ( - 2023-2 5 season) 2024 Influenza Vaccine (#1) 2024 RSV Immunization Adult Patie nts (1 - 1-dose 75+ series) 11/09/2030 HIB [...] to complete this topic RSV Immunization Patients Un arielle 20 months Aged Out No longer eligible b ased on patient's age to complete this topic Varicella Vaccines Aged Out No longer eligible based on patient's age to complete this topic Insurance MEDICAID - [place] MEDICARE Care Teams Training Director Relationship Specialty Start Date End Date Simon Katz MD [address] [place] [address] [address] [place], [phone] PCP - General Family Medicine 02/03/24
--- OUTSIDE RECORDS SUMMARY | 2025-01-28 15:12 | XMS_ITS | Encounter Summary ---
Author Organization [employer] Address [address] [place] [address] Care Team Providers Care Paid Search Analyst Name Role Phone Luciana Winters MD Primary Care Provider [phone] Reason for Visit * Reason Comments Med Refill Encounter Details Date Type Department Care Team (Late st Contact Info) Description 06/03/[address] [facility] [address] [place] [address] [phone] Randee Sweeney MD [address] [place] [address] [phone] Hypertension, unspecified type; Hypertriglyceridemia Social History Tobacco [...] Description 02/18/2025 3:00 PM EST Office Visit [facility]INE [address] [place] [address] [phone] Luciana Winters MD [address] [place] [address] [phone] documented as of this encounter Visit Diagnoses Diagnosis Hypertension, unspecified type Hypertriglyceridemia Pure hyperglyceridemia documented in this encounter Care Teams Paid Search Analyst Relationship Specialty Start Date End Date Luciana Winters MD [address] [place] [address] PCP - General Family Medicine 03/28/18 Jannette 03/20/24 08/06/24 Leena 08/01/24 documented as of this encounter
--- OUTSIDE RECORDS SUMMARY | 2025-01-28 15:12 | XMS_ITS | Encounter Summary ---
Author Organization [employer] Address [address] [place] [address] [address] [place] [address] Care Team Providers Care Technical Advisor Name Role Phone Luciana Winters MD Primary Care Provider [phone] Reason for Visit * Reason Onset Date Comments Medication Question 03/20/2024 Encounter Details Date Type Department Care Team ([facility] Contact Info) Description 03/20/2024 Telephone [facility] [address] [place], [place] [phone] Luciana Winters MD [address] [place] [address] Medication Question Social History Tobacco Use Types [...] [facility] the [facility] 7.5 mg as [...] 7.5 mg.) If any questions contact Nora: [phone] documented in this encounter Plan of Treatment Upcoming Encounters Date Type Department Care Team ([facility] st Contact Info) Description 02/18/2025 3:00 PM EST Office Visit [facility] [address] [place] [address] Luciana Winters MD [address] [place] [address] documented as of this encounter Visit Diagnoses Not on filedocumented in this encounter Additional Health Concerns Assessment Noted Time PHQ-9 Depression Total Score: 3 12/20/19 24 1:29 PM EDT documented as of this encounter Care Teams Technical Advisor Relationship Specialty Start Date End Date Luciana Winters MD [address] [place] [address] PCP - General Family Medicine 03/28/18 Jannette 03/20/24 08/06/24 Leena 08/01/24 documented as of this encounter
--- OUTSIDE RECORDS SUMMARY | 2025-01-28 15:12 | XMS_ITS | Encounter Summary ---
Author Organization [employer] Address [address] [place] [address] Care Team Providers Care Motion Graphics Artist Name Role Phone Luciana Winters MD Primary Care Provider [phone] Encounter Details Date Type Department Care Team ([facility] st Contact Info) Description 03/22/2024 Orders Only [facility] [address] [place] [address] Luciana Winters MD [address] [place] [address] Social History Tobacco Use Types Packs/Day Years [...] Description 02/18/2025 3:00 PM EST Office Visit [facility] [address] [place] [phone] Luciana Winters MD [address] [place] [id number] documented as of this encounter Visit Diagnoses Not on filedocumented in this encounter Additional Health Concerns Assessment Noted Time PHQ-9 Depression Total Score: 3 12/20/19 24 1:29 PM EDT documented as of this encounter Care Teams Motion Graphics Artist Relationship Specialty Start Date End Date Luciana Wintesr MD [address] [place] [id number] PCP - General [facility]24 documented as of this encounter
[2025-01-28 16:00] VITALS: BP 162/87; PULSE 80; RESP 16; TEMP 36.8; O2SAT 98
[2025-01-28 19:50] VITALS: BP 149/74; PULSE 59; RESP 16; TEMP 36.7; O2SAT 99
--- NOTE | 2025-01-28 21:29 | MHC.CM.ED ---
Addendum entered by Puja Ashford 01/28/25 21:41: No referrals placed pending CARE team and psych consult. Addendum entered by Puja Ashford 01/28/25 21:33: CM spoke with Daughter/HCP Kiana. Per Kiana, patient is active with [facility]. She has a daily medication nurse-6 days a week. Pt has been resistant to any home care help. Per daughter, room mate Johnny has been caring for her mother, however, Johnny has cancer and is hospitalized, receiving radiation and chemotherapy. Kiana is unsure if Johnny will be able to care for her mother. Kiana is the HCP-it is not invoked. She has concerns about her mother's capacity to make decisions. Provider aware. Will order psych for capacity. CARE team consult has also been made. Kiana does not believe her mother should be alone, as she cannot care for herself. She either will not/or cannot communicate, she has refused meds for past 2 days, she is refusing doctors appointments. She has refused home services. She has poor hygiene, poor po, is confused and has been wandering. She has a hx of chronic UTI's. Urine is pending. PT is recommending STR. Pt does not want STR. Pt is pending CARE team and psych consult. Daughter has verified medication list on file. Primary RN aware. Original Note: CM attempted to meet with patient. Pt not answering CM questions. Unsure if patient cannot answer or will not answer questions. Pt was able to tell CM that she lives with Johnny, her friend. She does not have a PARTS IDENTIFIER. She is aware that CM will call her daughter/HCP #1 Kiana Fagan ([phone]). Pt did not answer when primary RN asked her about her medications.
[2025-01-29 06:17] VITALS: BP 111/63; PULSE 58; RESP 16; TEMP 36.8; O2SAT 100
[2025-01-29 07:00] LABS: Appearance Urine Cloudy; Glucose Urine UA Negative (Negative); PH 6.0 (5.0-9.0); Specific Gravity - Urine 1.025 (1.005-1.025); UMIC TRIGGER UACC YES
[2025-01-29 07:18] LABS: UACC Culture Trigger YES
--- NOTE | 2025-01-29 07:30 | PHA.MEDREC ---
Pharmacy Consult ? Medication Reconciliation Pharmacy has reviewed the medication reconciliation done by RN
--- NOTE | 2025-01-29 10:10 | MHC.CM.ED ---
Addendum entered by Gloria Radford 01/29/25 10:17: Spoke with pt's dtr Kiana who states pt has a hx of MH issues. Pt's roommate is presently in the hospital and seriously ill. He will no longer be able to assist w/pt's care needs. Kiana aware that CARE team/psych consults are pending and she could be named the activated HCP. No referrals made at this time per Kiana until pt's cognitive capacity is assessed. ED CM to follow Original Note: Met with pt to review PT eval. Pt not engaging, kept eyes closed during conversation and only stated that she wanted to return to home. Explained lack of caregiver at home (DIRECTOR OF INVESTIGATIONS is in the hospital reportedly) and PT recommending STR - asked pt if her dtr would be able assist - pt only responding, I want to go home. CARE team/psych eval for decision making consults pending. ED CM to update HCP/dtr Kiana.
[2025-01-29 10:29] VITALS: BP 129/64; PULSE 76
[2025-01-29 14:00] VITALS: BP 129/78; PULSE 60; RESP 16; TEMP 36.8; O2SAT 95
[2025-01-29 20:00] VITALS: BP 106/59; PULSE 54; RESP 12; TEMP 36.6; O2SAT 98
[2025-01-29 20:54] VITALS: BP 106/59; PULSE 50
--- NOTE | 2025-01-30 04:27 | PC.NURSE ---
0400 Patient sleeping throughout night. Cooperative and compliant with care. Metoprolol held per parameters at hs BP 106/59 HR 50. Safety precautions in place, bed alarm on , call marcus within reach. Purposeful rounding performed. Patient denies pain.
--- NOTE | 2025-01-30 04:56 | PC.NURSE ---
0400 Patient sleeping throughout night. Up to commode with 2 max assist to urinate. Patient does not understand concept of the purewick. Calm and cooperative with care. Denies pain at present. Purposeful rounding performed. Safety measures in place. Bed alarm on , call marcus within reach.
[2025-01-30 05:03] VITALS: BP 112/73; PULSE 64; RESP 16; TEMP 36.4; O2SAT 96
--- NOTE | 2025-01-30 07:43 | PC.NURSE ---
This RN assumed care of patient @ 0700 Patient resting comfortably in bed Denies pain Patient high fall risk, yellow socks on feet, bed alarm on and working. Call marcus in reach Patient currently enjoying breakfast
--- NOTE | 2025-01-30 09:38 | MHC.CM.ED ---
Patient remains in ER overflow. Cleared by Care Team. Psych consult pending. Continue to monitor for d/c needs.
[2025-01-30 09:41] VITALS: BP 112/73; PULSE 64
[2025-01-30 13:32] VITALS: BP 95/56; PULSE 70; RESP 18; TEMP 36.6; O2SAT 97
--- NOTE | 2025-01-30 18:26 | PC.NURSE ---
Tiara provider to bedside for eval.
--- NOTE | 2025-01-30 19:33 | PM.PSYCN ---
History of Present Illness Date of Service: 01/30/25 Chief Complaint: fall, knee pain Reason for Consult: capacity Requesting physician: Matty Shelton Discussed with referring provider: No Sources of Information: patient interviewed, chart reviewed and crisis/core team assessment reviewed HPI Narrative: Ms. Harp is a 69 yo F with h/o schizoaffective d/o, HTN, HLD, UTI, PTSD, anxiety who was BIBA for evaluation of failure to thrive and a fall. A psychiatry consult was requested to determine pt's capacity. Per ED note, patient is unable to care for herself at home patient lives home under care of DIRECT SUPPORT PROFESSIONAL CAREGIVER who is currently hospitalized for the past 2 days. Pt cannot care for herself while her DIRECT SUPPORT PROFESSIONAL CAREGIVER is in the hospital, patient also get VNA service who called the ambulance to take the patient to the hospital for further evaluation. Patient report that she has been able to feed herself cereal at home but not fully able to care for herself. While patient is transported patient scratch her right knee and restrepo in the wall with no fall,l or injury to the right knee, patient is still able to ambulate. Pt was evaluated by PT, who recommended STR, which pt declined at this time. Pt's mother expressed some concern re: pt's capacity to make this decision. Per case mgmt note from 01/28: CM spoke with Daughter/HCP Kiana. Per Kiana, patient is active with [facility]. She has a daily medication nurse-6 days a week. Pt has been resistant to any home care help. Per daughter, room mate Johnny has been caring for her mother, however, Johnny has cancer and is hospitalized, receiving radiation and chemotherapy. Kiana is unsure if Johnny will be able to care for her mother. Kiana is the HCP-it is not invoked. She has concerns about her mother's capacity to make decisions. Provider aware. Will order psych for capacity. CARE team consult has also been made. Kiana does not believe her mother should be alone, as she cannot care for herself. She either will not/or cannot communicate, she has refused meds for past 2 days, she is refusing doctors appointments. She has refused home services. She has poor hygiene, poor po, is confused and has been wandering. She has a hx of chronic UTI's. Urine is pending. PT is recommending STR. Pt does not want STR. Pt is pending CARE team and psych consult. Daughter has verified medication list on file. Primary RN aware. T/W met w/ pt in the ED. She reports that she came to the ED bc I wasn't eating that good . States that she usually has a roommate but he's in the hospital for cancer tx. She states he doesn't help me that much . States that she does need help at home with rent and stuff but we do our own cooking . She reports that she's been walking alright and stuff like that but uses a walker outside of the home and scraped my ambulance , pointing to her ankle. She clarified that she scraped her ankle getting into the ambulance. She is aware that she takes meds for schizophrenia, parkinsons, BP, and cholesterol. She denies significant depression/anxiety. Denies SI/violent ideation. Denies AHVH. Reports that her appetite/eating has been okay and a little better since she's bee in the hospital. Reports sleeping okay. T/W asked if pt would feel comfortable staying in a facility where she would receive support w/ taking her meds and ensuring her safety while her roommate is away. She stated yeah, but I don't know how long . Past Psychiatric History: Schizoaffective disorder. Multiple past inpatient psychiatric hospitalizations. Last [facility] discharge 07/31/24: Does not have outpatient psychiatric providers. hx of providers with [employer]. History of SIB via superficial cutting in 2022. Medical Evaluation Reviewed: Yes [facility] Medical History History of amputation of left great toe Recurrent UTI Parkinson's disease without dyskinesia, with fluctuations Porcelain gallbladder Anxiety HLD (hyperlipidemia) HTN (hypertension) Schizophrenia Family History: One of her 2 daughters committed suicide 7 years ago after her father's Social History: lives with a roommate. graduated high school. . 2 daughters, 1 living. Trauma History: yes Diagnostics Vital Signs (24Hr): Vital Signs - 24 hr 01/29/25 20:00 01/29/25 20:54 01/30/25 05:03 Temperature 97.8 F 97.6 F Pulse Rate 54 50 64 Respiratory Rate 12 16 Blood Pressure 106/59 L 106/59 L 112/73 Pulse Oximetry 98 96 Oxygen Delivery Method Room Air Room Air 01/30/25 09:41 01/30/25 13:32 Temperature 97.8 F Pulse Rate 64 70 Respiratory Rate 18 Blood Pressure 112/73 95/56 L Pulse Oximetry 97 Oxygen Delivery Method Room Air BMI result Body Mass Index 18.0 Labs 01/28/25 13:23 01/28/25 13:23 Labs: Laboratory Results - last 48 hr 01/29/25 06:13 Urine Color Yellow Urine Appearance Cloudy Urine pH 6.0 Ur Specific [place] 1.025 Urine Protein Trace Urine Glucose (UA) Negative Urine Ketones 15 Urine Blood Negative Urine Nitrite Negative Ur Leukocyte Esterase Moderate (2+) H Urine RBC 0-2 Urine WBC >50 H Ur Squamous Epith Cells 11-20 Urine Bacteria Trace Hyaline Casts 3-5 Imaging Radiology Impressions: ITS Impressions Chest X-Ray 01/28/25 12:12 IMPRESSION: Stable chronic nodular calcifications in the bilateral lung apices suggests chronic granulomatous disease. Lung hyperexpansion with attenuated upper lung pulmonary vascularity is consistent with mild changes of emphysema. Electronically signed by: Terry Solis MD 01/28/2025 12:30 PM [facility] Mental Status Exam Mental Status Exam Narrative: Appearance: somewhat frail. Dressed in [facility]. fair grooming/hygiene. intermittent eye contact Attitude:Cooperative Speech: latent but otherwise wnl Motor activity: Calm and without any tics, tremors or dyskinesias. Mood: as noted above Affect: blunted Thought process: generally goal directed Thought content: as noted above Perception: Denies AH/VH and does not appear to respond to internal stimuli Insight: fair Judgment: fair Medications Medications Current Medications Atorvastatin Calcium (Atorvastatin Calcium 20 Mg Tablet) 20 mg PO BEDTIME [facility] Last Admin: 01/29/25 20:49 Dose: 20 mg Brexpiprazole (Brexpiprazole 2 Mg Tablet) 2 mg PO DAILY [facility] Last Admin: 01/30/25 09:40 Dose: 2 mg Carbidopa/Levodopa (Carbidopa/Levodopa 25/100 Tablet) 1 tab PO DAILY@0800,1200 [facility] Last Admin: 01/30/25 11:27 Dose: 1 tab Melatonin (Melatonin 3 Mg Tablet) 6 mg PO BEDTIME [facility] Last Admin: 01/29/25 20:48 Dose: 6 mg Memantine (Memantine Hcl 5 Mg Tablet) 5 mg PO DAILY [facility] Last Admin: 01/30/25 09:40 Dose: 5 mg Metoprolol Tartrate (Metoprolol Tartrate 25 Mg Tablet) 25 mg PO BID [facility]; Protocol Last Admin: 01/30/25 09:41 Dose: 25 mg Senna/Docusate Sodium (Sennosides/Docusate Sodium Tablet) 1 tab PO BID PRN PRN Reason: Constipation Trazodone HCl (Trazodone Hcl 100 Mg Tablet) 100 mg PO BEDTIME [facility] Last Admin: 01/29/25 20:49 Dose: 100 mg Allergies Allergies Allergy/AdvReac Type Severity Reaction Status Date / Time No Known Allergies Allergy Verified 01/28/25 11:49 Assessment & Plan Assessment & Plan (1) Adult failure to thrive: Status: Acute Code(s): R62.7 - Adult failure to thrive (2) Schizoaffective disorder: Status: Acute Code(s): F25.9 - Schizoaffective disorder, unspecified Plan Ms. Harp is a 69 yo F with h/o schizoaffective d/o, HTN, HLD, UTI, PTSD, anxiety who was BIBA for evaluation of failure to thrive and a fall. A psychiatry consult was requested to determine pt's capacity. Per my review of pt's chart, it looks like the capacity question is specifically related to her ability to make decisions to invoke an HCP and to return home alone rather than going to STR while her DIRECT SUPPORT PROFESSIONAL CAREGIVER is gone (currently hospitalized for cancer tx). Pt currently demonstrates capacity to invoke her HCP. She is currently agreeable w/ going to STR with the understanding that it would be a temporary measure until her DIRECT SUPPORT PROFESSIONAL CAREGIVER returns. Thank you for referring Ms Harp for a psychiatric consultation. Please Shock Text me with any questions. Total time managing care of this patient today _60___ minutes.
[2025-01-30 20:41] VITALS: BP 123/71; PULSE 82; RESP 16; TEMP 36.6; O2SAT 95
--- NOTE | 2025-01-30 20:49 | MHC.CM.ED ---
Pt seen by psych. Has capacity. Pt tells psych she is willing to go to rehab. Pt is active with [facility] for medication management 6 days/wk. 24 local referrals placed. Will await bed offers. Pt does not have a Q.S. Has Medicare/Medicaid.
[2025-01-30 20:50] VITALS: BP 123/71; PULSE 82
[2025-01-31 01:40] VITALS: BP 112/65; PULSE 54; RESP 18; TEMP 36.2; O2SAT 97
[2025-01-31 05:20] VITALS: BP 102/64; PULSE 53; RESP 18; TEMP 36.3; O2SAT 98
[2025-01-31 08:54] VITALS: BP 104/62; PULSE 57
--- NOTE | 2025-01-31 10:40 | PC.NURSE ---
Assume Care Approx @ 0715? A&O x3, Poor historian. RA, clear lung sounds. No pain reported. 20G L.AC. 1 assist to commode. Repositioning maintained. High fall risk precaution in place.
--- NOTE | 2025-01-31 11:04 | MHC.CM.ED ---
Addendum entered by Aleyda Smith 01/31/25 14:44: Received notification [facility] will not have a bed until Tuesday. Patient and daughter agreeable. Anticipate d/c to [facility] on Tuesday. Original Note: Patient remains in ER overflow. [facility] and [facility] are able to offer a bed. [facility] is willing to offer a bed when they have a female bed available. They're not sure when that will be. [facility], [place], [facility], [address] [place] [address], [facility], [facility] and [facility] are still reviewing. Met with patient in regards to discharge planning. Patient is not sure which facility to pick. Agreeable to CM to reach out to her daughter. Patient also inquiring about her friend/caregiver Johnny. Spoke with Kiana via telephone at [phone]. [facility] would be the preference. Johnny is still admitted at [facility]. [facility] made aware. MDS and Level 1 will be submitted to [facility] and [facility]. Will need [facility] approval from [facility] before patient can transfer to facility. Continue to monitor for d/c needs.
[2025-01-31 14:19] VITALS: BP 96/58; PULSE 58; RESP 17; O2SAT 96
[2025-01-31 20:23] VITALS: BP 91/54; PULSE 53; RESP 19; TEMP 36.4; O2SAT 96
--- NOTE | 2025-02-01 05:58 | PC.NURSE ---
Assumed care of patient at 0300 in ED OVF. Alert and Oriented x 3 Room Air Assist x 1 to bedside commode. Bed in lowest setting, locked, alarm and call marcus in place. Plan to d/c to [facility] Tuesday
[2025-02-01 06:00] VITALS: BP 107/59; PULSE 56; RESP 18; TEMP 36.3; O2SAT 97
[2025-02-01 07:59] VITALS: PULSE 56
--- NOTE | 2025-02-01 08:03 | PC.NURSE ---
Sitting up eating independently. no complaints at this time. taking meds whole. NAD. oriented to person/place. able to state needs.
--- NOTE | 2025-02-01 12:39 | PC.NURSE ---
Pt has received full ADL care from [facility] including shampooing, shave, oral care. Pt states she feels great .
[2025-02-01 13:39] VITALS: BP 100/57; PULSE 79; RESP 15; TEMP 36.5; O2SAT 97
[2025-02-01 18:35] VITALS: BP 127/67; PULSE 80; RESP 16; TEMP 37.3; O2SAT 97
--- NOTE | 2025-02-01 21:00 | PC.NURSE ---
Assumed care of pt, presents to the ED for failure to thrive and fall at home, pt is unable to care for self at home and lives at home with CONTRACT DESIGNER, who is in the hospital for Cancer Tx. Hx of Schizophrenia, HTN, HLD, PTSD, Pt has been seen by Psych to be evaluated for capacity and agreed to STR while her CONTRACT DESIGNER is in the hospital for treatment, pt aaox3,
[2025-02-02 06:01] VITALS: BP 115/75; PULSE 61; RESP 14; TEMP 36.6; O2SAT 98
[2025-02-02 09:05] VITALS: BP 109/65; PULSE 56
--- NOTE | 2025-02-02 10:29 | PC.NURSE ---
Pt has been sleeping on and off throughout the morning. Ate breakfast independently. Took morning meds whole. Plan to dc to [facility] at 1400 today
[2025-02-02 13:05] VITALS: BP 121/71; PULSE 73; RESP 18; TEMP 37.2; O2SAT 98
[2025-02-02 14:28] VITALS: BP 121/71; PULSE 73; RESP 18; TEMP 37.2; O2SAT 98
--- NOTE | 2025-02-02 14:34 | PC.NURSE ---
Pt resting quietly in bed, approached about plan and scheduled meds approx 1230, pt states not right now. She was approached at approx 1345 and continued to refuse. The ambulance arrived and pt was quietly saying no when asked about anything but would not elaborate on what she was saying no to. EUSEBIO aware, TIM Doshi aware. After further discussion and reassurance with patient she was agreeabe to transfer to rehab. She was able to stand and pivot with minimal assist to EMS stretcher and was sent with transport without further issue. All belongings transferred with patient and [facility].
== END 2025-02-02 14:33 ==
PROVIDERS: Emergency Provider Emergency Medicine; PCP Family Medicine
DX: R62.7 Adult failure to thrive (principal); Z68.1 Body mass index [BMI] 19.9 or less, adult; F43.10 Post-traumatic stress disorder, unspecified; I10 Essential (primary) hypertension; F41.9 Anxiety disorder, unspecified; G20.A1 Parkinson's disease without dyskinesia, without mention of fluctuations; S80.811A Abrasion, right lower leg, initial encounter; W22.01XA Walked into wall, initial encounter; Y93.89 Activity, other specified; Y92.098 Other place in other non-institutional residence as the place of occurrence of the external cause; Y99.8 Other external cause status; Z87.440 Personal history of urinary (tract) infections
CPT/HCPCS: 36415; 71045; 80048; 80076; 81001; 83690; 84484; 85025; 87086; 87637; 93005; 97116; 97162; 99285; S9485

== ENCOUNTER → 2025-01-28 11:52 | Outpatient (BNV) | payer MEDICARE, MEDICAID, SELFPAY | PROVIDERS: Emergency Provider Emergency Medicine; PCP Family Medicine; Visit Provider Psychiatry & Neurology Psychiatry | DX: F25.9 Schizoaffective disorder, unspecified (principal); R62.7 Adult failure to thrive | CPT/HCPCS: 99284 ==

== ENCOUNTER → 2025-01-28 11:56 | Outpatient (BNV) | payer MEDICARE, MEDICAID, SELFPAY | PROVIDERS: Emergency Provider Emergency Medicine; PCP Family Medicine; Visit Provider Radiology Diagnostic Radiology | DX: R62.7 Adult failure to thrive (principal) | CPT/HCPCS: 71045 ==

== ENCOUNTER → 2025-01-28 11:56 | Outpatient (BNV) | payer MEDICARE, MEDICAID, SELFPAY | PROVIDERS: Emergency Provider Emergency Medicine; PCP Family Medicine; Visit Provider Internal Medicine Cardiovascular Disease | DX: R00.1 Bradycardia, unspecified (principal) | CPT/HCPCS: 93010 ==